=== PATIENT | male | born 1955 | race Caucasian/White ===

== ENCOUNTER 2017-08-14 21:05 | Emergency (ER) | payer OTHER, SELFPAY ==
[2017-08-14 21:06] VITALS: BP 114/75; PULSE 73; RESP 16; TEMP 531.3; TEMP 988.4; O2SAT 95; BMI 26.4
--- NOTE | 2017-08-14 22:30 | RAD_ITS ---
STUDY: X-RAY - LEFT HAND REASON FOR EXAM: Male, 61 years old. Injury TECHNIQUE: 3 view(s) of the hand. COMPARISON: None. FINDINGS: Normal radiocarpal articulation. Normal distal radioulnar joint. Normal visualized carpal bones. Normal carpal articulations Normal carpometacarpal articulation of the thumb. Normal second through fifth carpometacarpal joints. Normal metacarpi. Normal metacarpophalangeal joint of the thumb. Normal interphalangeal joint of the thumb. Normal proximal and distal phalanges of the thumb. Normal metacarpophalangeal joints of the second through fifth fingers. Normal proximal and distal interphalangeal joints of the second through fifth fingers. Fracture is noted involving the tuft of the distal phalanx of the fifth finger. Soft tissue injury of the fifth finger. RAD/Hand Min 3 Views IMPRESSION: Fracture is noted involving the tuft of the distal phalanx of the fifth finger. Electronically Signed: William Hair DO at 23:04 EDT Tel [phone], Service support ,
--- NOTE | 2017-08-15 | ED.DCSUM_ITS ---
- ER Visit Summary Date of Service: 08/14/17 Chief Complaint: Finger laceration History of Present Illness: The patient is a 61 M presents to the emergency department with crush injury to his left small finger. Patient was outside moving rocks. He states he picked one up and slipped. He ended up getting his left small finger stuck between 2 rocks. He had immediate pain and bleeding. The patient is on Xarelto. He has a history of factor II deficiency. He is otherwise healthy. Last tetanus was less than 7 years ago. He denies any other injury. He states that he did place a small pressure dressing was able to get the bleeding to stop. Physical Examination: Name is relatively unremarkable. There was no subungual hematoma. The patient's two-point discrimination is preserved. Flexor superficialis and flexor profundus are preserved. Cap refill is less than 2 seconds. Patient does have a 3 cm full-thickness L-shaped laceration with tissue avulsion. Test Results: [] Emergency Department Course and Treatment: Plain films are obtained. The patient does have a tuft injury. This does make this an open fracture. Digital block was performed. Under sterile conditions, the wound was aggressively irrigated with 300 cc of normal saline. There was scant for material that was able to be removed. It was examined. There was no active bleeding. There is no evidence of tendinous involvement. The wound was repaired with 15 simple interrupted suture. As this is an open fracture, the patient will require antibiotics. I am going to give him orthopedic follow-up. I did certified alcohol counselor him that if his symptoms worsen in any way he will need acutely reevaluated. He will be given follow-up with orthopedics to be seen within the next 48 hours. I did certified alcohol counselor him that if he cannot be seen to return to the emergency department. The patient is comfortable this plan of care. I did spend time counseling him that as this is an open fracture, there is risk of wound healing difficulties and osteomyelitis. The patient will be discharged home. Treatment Plan: [] Disposition: Discharge Impression: 1. Open tuft fracture left fifth finger with laceration repair This note was generated with [employer] dictation software. It may contain incorrect words, spelling, and punctuation that were not noted in review of the chart prior to signing ED Disposition - Plan for ED Patient: Chief Complaint: Laceration Instructions: ED Fx Finger Open Prescriptions: Cefadroxil [Duricef] 1,000 mg PO BID #40 cap Referrals: Eder Nuñez DO [STAFF PHYSICIAN] - Xavier Reyes MD [STAFF PHYSICIAN] -
[2017-08-15] MEDS: Cefadroxil 500 MG CAPSULE 1000 MG PO (00:05)
[2017-08-15] MEDS: Bupivacaine 0.25% 30 ML Vial INFILT (00:05)
[2017-08-15] MEDS: HYDROcodone Bitartrate/Apap 5/325 Tablet PO (00:17)
[2017-08-15 00:18] VITALS: BP 119/63; PULSE 60; RESP 16; O2SAT 99
== END 2017-08-15 00:19 | disposition home or self-care (01) ==
LOC: ED 22:15
PROVIDERS: Emergency Provider Emergency Medicine; Family Provider Family Medicine; PCP Family Medicine
DX: S62.637B Displaced fracture of distal phalanx of left little finger, initial encounter for open fracture (principal); W20.8XXA Other cause of strike by thrown, projected or falling object, initial encounter; Y93.H2 Activity, gardening and landscaping; Y92.9 Unspecified place or not applicable; D68.2 Hereditary deficiency of other clotting factors; Z79.01 Long term (current) use of anticoagulants; I10 Essential (primary) hypertension; K21.9 Gastro-esophageal reflux disease without esophagitis; Z79.899 Other long term (current) drug therapy
CPT/HCPCS: 12002; 73130; 99284

== ENCOUNTER → 2017-09-19 07:51 | Outpatient (CLI) | payer OTHER, SELFPAY ==
--- NOTE | 2017-09-19 10:37 | NEURO_ITS ---
NCS and/or EMG Patient Report Ordering Doctor: Salinas Ford DATE OF SERVICE: 09/19/17 This is a bilateral lower extremity nerve conduction study and a left lower extremity EMG performed on this 62-year-old male who is otherwise healthy, who has a mild nonspecific pain including numbness in the balls of his feet bilaterally as well as his toes somewhat worse on the left side present for approximately 1 year. There is a family history of idiopathic neuropathy in his mother. On physical examination the patient does have hammertoe deformities and very mild loss of proprioception in his toes. Reflexes are intact. Bilateral lower extremity sensory and motor nerve conduction studies are performed. The sural sensory and medial plantar sensory responses are intact. The bilateral common peroneal conduction velocities are slowed mildly with reduction in amplitude and prolonged latencies. The tibial motor latencies are also prolonged with mild reduction in amplitude and mild slowing of conduction velocities. The tibial and common peroneal F waves bilaterally are prolonged and the H reflex responses bilaterally are reduced. Left lower extremity needle electromyography is performed. Muscles evaluated included the abductor hallucis, extensor digitorum brevis, medial gastrocnemius , anterior tibialis, vastus lateralis, and vastus medialis. Distal muscles demonstrated large motor units with early recruitment. These abnormalities resolve more proximally in a length dependent pattern. 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
== END ==
PROVIDERS: Family Provider Family Medicine; PCP Family Medicine; Visit Provider Family Medicine
DX: G62.9 Polyneuropathy, unspecified (principal)
CPT/HCPCS: 95886; 95911

== ENCOUNTER → 2017-11-17 08:37 | Outpatient (CLI) | payer OTHER, SELFPAY ==
--- NOTE | 2017-11-17 08:42 | RAD_ITS ---
STUDY: X-RAY - PELVIS AND BILATERAL HIPS REASON FOR EXAM: Male, 62 years old. Bilateral hip pain. TECHNIQUE: Radiological exam, hip, bilateral, with pelvis when performed; 2 views COMPARISON: Comparison is made with prior study dated January 27, 2016. FINDINGS: There is a non-specific bowel gas pattern. Normal visualized soft tissue structures. Normal bilateral iliac wings, sacroiliac joints and visualized sacrum. Normal bilateral superior and inferior pubic rami. Normal pubic symphysis. Normal bilateral ischial tuberosities. Normal visualized right femoral head. There is osteoarthritic spur formation of the right acetabular rim. There is mild articular joint space narrowing of the right hip. Normal visualized left femoral head. There is osteoarthritic spur formation of the left acetabular rim. There is mild articular joint space narrowing of the left hip. RAD/Hips B/L min 2 views w/ Pelvis IMPRESSION: Degenerative acetabular spurs bilaterally. Electronically Signed: João Heard MD at 12:40 EDT Tel [phone], Service support ,
== END ==
PROVIDERS: Family Provider Family Medicine; PCP Family Medicine; Visit Provider Family Medicine
DX: M16.6 Other bilateral secondary osteoarthritis of hip (principal)
CPT/HCPCS: 73521

== ENCOUNTER 2017-12-22 07:00 | Outpatient (RCR) | payer OTHER, SELFPAY ==
--- NOTE | 2017-11-28 08:59 | HP.PTEVAL_ITS ---
Patient's Visit Information MALVIN ROBLERO is a 62 year old M referred to Physical Therapy by Salinas Ford with a diagnosis of L hip OA. Date of Evaluation: 11/28/17 Physical Therapist: Dave Oliver PT, - Visit Plan Frequency: 2x /Week Duration: 4 Weeks Plan: L hip strengthening, core stab ex's, balance and proprio ex's, nustep, and HEP - Subjective Subjective: Pt reports he has had chronic L hip pain for several years. Pt notes he could usually just walk it off. However, since september of this year, his pain has remained and progressively worsened. Pt notes he had xrays, which revealed OA. Pt reports his pain is located in the groin region, his posterior glute region, and down his leg to his knee region. Pt reports walking and sitting both increase his pain at times. Pt reports tylenol doesnt really help. Pt reports occasional sleep diff secondary to the pain. Pt reports he has to sleep on his back secondary to the pain. Pt reports he has a very diff time with getting in and out of a car. 1/10 at rest, 10/10 at worst (partial squat to get into the cabinets) - Pain L hip Pain Intensity (Out of 10): 1 Pain Intensity Range: 10 - Objective Neuro: B LE sensation is WNL to light touch. B pat tendon reflex= 2/3. MMT: L hip flex= 4-/5, IR/ER= 4/5. All other B LE MMT 5/5 throughout. LE ROM: WNL. L/ S ROM: Pt is moderately limited with ext of the L/S. All other ranges WNL. special tests: Pt has a pos quadrant test of the L hip. leg length is eqaul. Repeated movements: Pt does have a mild pain with repeated ext, but pain is centralized in the L/S. NE with RFIS. - Goals Goal 1:: Decrease L hip pain x 50% to aid with sleep Goal Time Frame: 4-6 Weeks Goal 2:: Increase L hip strength x 1 grade to aid with improving tolerance for ambulation Goal Time Frame: 4-6 Weeks Goal 3:: I with HEP Goal Time Frame: 4-6 Weeks - Rehabilitation Potential Physical Therapy Diagnosis: Pt has L hip pain, weakness, and difficulty with ambulation secondary to OA of L hip Rehabilitation Potential: Good - Anticipated Interventions Patient/Client Instruction: Educate patient on: Condition, Plan of Care For the Purpose of:: To improve self management Therapeutic Exercise to Include: Strength training, Endurance training, Flexibilty training, Gait and locomotor training, Dynamic Lumbar Stabilization For the Purpose of:: To decrease pain, To increase ROM, To improve muscle performance and motor function Cryotherapy (ice pack, ice massage): Yes Thermo therapy (hot pack): Yes Ultrasound (thermal/non thermal): Yes For the Purpose of:: To decrease pain, To improve ability to perform tasks related to life management Thank you for the opportunity to evaluate your patient. For Medicare and Medicare HMO plans, please review the plan of care and approve it. It will need to be FAXED BACK to us at [phone] for Medicare purposes. Please let me know if there are questions or concerns regarding this plan of care. Physician Signature: Date:
--- NOTE | 2018-02-09 07:44 | HP.PT.NRP ---
HP - Discharge Summary (1) - Patient Information MALVIN ROBLERO was seen in my office for initial evaluation on 11/28/17. The following Plan of Care was established for this patient: Initial Frequency: 2x /Week Initial Duration: 4 Weeks - Anticipated Interventions Patient/Client Instruction: Educate patient on: Condition, Plan of Care For the Purpose of:: To improve self management Therapeutic Exercise to Include: Strength training, Endurance training, Flexibilty training, Gait and locomotor training, Dynamic Lumbar Stabilization For the Purpose of:: To decrease pain, To increase ROM, To improve muscle performance and motor function Cryotherapy (ice pack, ice massage): Yes Thermo therapy (hot pack): Yes Ultrasound (thermal/non thermal): Yes For the Purpose of:: To decrease pain, To improve ability to perform tasks related to life management This patient was last seen in our office . Pertinent comments regarding their Physical therapy will appear below: Pt was treated for 6 PT visits through the date of 12/25/17. Pt was not progressing well at that time, and I recommended he RTD for a f/u visit. Pt has not returned through this date, and is therefore discontinued at this time. At this point I will be discontinuing this patient from physical therapy. I would be happy to see this patient again in the future if found appropriate by the physician. Thank you! Dave Oliver, PT,
== END 2017-12-22 19:00 | disposition home or self-care (01) ==
LOC: PT 07:00
PROVIDERS: Family Provider Family Medicine; PCP Family Medicine; Visit Provider Family Medicine
DX: M16.12 Unilateral primary osteoarthritis, left hip (principal)
CPT/HCPCS: 97110; 97161

== ENCOUNTER → 2017-12-27 07:15 | Outpatient (CLI) | payer OTHER, SELFPAY ==
[2017-12-27 10:30] LABS: Absolute Lymphocyte Count 1.04 X10^3/ul (0.83-4.51); Absolute Neutrophil Count 3.1 X10^3/uL (2.0-7.7); Basophil# 0.02 X10^3/uL; Basophil% 0.4 % (0-1); Eosinophil# 0.15 X10^3/uL; Eosinophils% 3.1 % (0-5); Hematocrit 46.6 % (40-54); Hemoglobin 16.2 g/dl (13.0-16.5); Lymphocyte # 1.04 X10^3/ul (4.0); Lymphocyte % 21.4 % (19-41); Mean Corp Hgb Conc 34.8 g/gl (32-36); Mean Corpuscular Hgb 30.3 pg (27.0-32.0); Mean Corpuscular Volume 87.3 fL (80-94); Mean Platelet Vol. 9.6 fl (6.2-12.0); Monocyte% 10.3 % (0-10); Neutrophil # 3.12 X10^3/uL (2.7-7.7); Neutrophil % 64.2 % (47-70); Platelet Count 186 K/mm3 (150-450); RBC Distribution Width CV 13.3 % (11.6-14.6); Red Blood Count 5.34 M/mm3 (4.6-6.2); White Blood Count 4.9 K/mm3 (4.4-11.0)
[2017-12-27 10:34] LABS: POSITIVE COUNT NO; POSITIVE DIFFERENTIAL NO; POSITIVE MORPHOLOGY NO
[2017-12-27 10:38] LABS: ALB/GLOB Ratio 1.2 RATIO (0.9-2.4); AST(SGOT) 22 U/L (15-37); Alanine Aminotransfer ALT/SGPT 28 U/L (16-61); Albumin, Serum 3.6 g/dL (3.2-5.0); Alkaline Phosphatase 89 U/L (45-117); Anion Gap 9 (5-15); BUN 20 mg/dL (7-18); BUN/Creat Ratio 16.4 RATIO (10-20); Calcium,Total 8.3 mg/dL (8.5-10.1); Chloride 108 mmol/L (98-107); Creatinine, Serum 1.22 mg/dL (0.70-1.30); EST Glomerular Filtration Rate 64 mL/min (>60); Est Glom Filt Rate - Afr Amer 77 mL/min (>60); Globulin 2.9 g/dL (2.2-4.2); Glucose 154 mg/dL (74-106); Protein, Total 6.5 g/dL (6.4-8.2); Sodium Level 144 mmol/L (136-145)
== END ==
PROVIDERS: Family Provider Family Medicine; PCP Family Medicine; Visit Provider Internal Medicine Medical Oncology
DX: D68.52 Prothrombin gene mutation (principal)
CPT/HCPCS: 36415; 80053; 85025

== ENCOUNTER 2018-04-18 08:53 | Inpatient (IN) | payer OTHER, SELFPAY ==
[2017-12-27 15:42] VITALS: BMI 26.4
--- NOTE | 2018-04-02 09:29 | PCM.HP.BLA ---
History and Physical DATE OF SURGERY: 04/18/2018 SCHEDULED PROCEDURE: Left Total Hip Arthroplasty HISTORY OF PRESENT ILLNESS: This is a 62-year-old male whose been having ongoing pain in his left hip for close to a year. Pain can reach as high as a 9/10. Patient's pain is constant, dull, aching, sharp, and stabbing. Patient has increased pain going up and down stairs, driving, walking any amount of distance. Sitting is temporarily helpful. Patient does have start up pain. He does complain of left groin pain. Pain does awaken him at night. Patient does sleep with a pillow between his legs. Patient states he has difficult time with activities of daily living including bathing and showering as well as getting dressed. Patient has tripped/stumbled secondary to his left hip. Patient also does complain of bilateral knee pain in which she has had previous arthroscopies in the past. Patient has tried rest and elevation with minimal relief. Patient did have a previous corticosteroid injection with minimal relief. Injection was done in December 2017. Patient has tried physical therapy and home exercises with no relief in symptoms. Patient has tried oral medications consisting of Tylenol arthritis. He denies previous surgery on the left hip. Patient has a medical history pertinent for hypertension as well as previous blood clots and pulmonary emboli. Patient has had 2 episodes of pulmonary emboli in bilateral lungs. First was in 2014 followed by 2016. At that time patient was seen by Dr. Vann, bottom turning lathe turner. 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 Patient has been on Cymbalta 20 mg daily since. He has not had any previous episodes. We have obtain surgical clearance from patient's primary care physician and bottom turning lathe turner. Fish Machine Feeder recommends stopping Xarelto 24 hours before surgery and resuming after. Patient currently denies any chest pain, shortness of breath, fevers chills, or recent infections. After failing conservative measures and discussing all treatment options with Dr. Xavier Reyes, the patient would like to proceed with a left total hip arthroplasty. REVIEW OF SYSTEMS: ROS: Const: Denies change in appetite, fever and weight change. CV: Denies chest pain, heart murmur and irregular heartbeat. Resp: Denies cough, pneumonia, shortness of breath, tuberculosis and wheezing. GI: Denies constipation, diarrhea, heartburn, nausea, rectal itching, bloody stools and vomiting. : Denies incontinence. Musculo: Reports gait disturbance and trouble walking, but denies leg swelling, pain and weakness. Skin: Reports Raynaud's, but denies history of shingles and tattoo. Neuro: Denies ambulatory dysfunction, dizziness, numbness/tingling and tremor. Psych: Denies anxiety, insomnia and stress. Juan/Lymph: Reports bleeding/bruising tendency, but denies anemia and past transfusion. Reviewed and updated. PAST MEDICAL HISTORY: Advance Care Plan: No Advance Directives Effective Date: 02/23/2018 PMH: Medical Problems: Arthritis, High Blood Pressure, History Of Phlebitis, Pulmonary Embolism Accidents: Fracture - (2017) LT SMALL FINGER Surgical Hx: Tonsillectomy - (1959) Knee Arthroscopy LT - (2004) [facility] Knee Arthroscopy RT - (2000) [facility] Shoulder Arthroscopy RT - (2016) [facility] Anesthesia Complications: Hard Time Waking Up Assistive Devices: Glasses Reviewed and updated. 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 Personal Habits: Cigarette Use: Never Smoked Cigarettes.Smokeless Tobacco: Never Used Smokeless Tobacco.Alcohol: Denies use.Drug Use: Denies Use.Enjoy Exercising: Daily. Reviewed, no changes. VITALS: Ht: 71 Wt: 194lb Wt k.998 BMI: 27.1 BP: 130/84 Pulse: 92 Resp: 18 T: 96.4 T: 35.8C ALLERGIES: Toprol Norflex Kenalog Meloxicam Flexeril Penicillin MEDICATIONS: Clindamycin 600 mg. take orally one hour prior to procedure, Xarelto 20 mg 1 tab PO daily, Losartan Potassium 50 mg 1 tab PO every other day, Omeprazole 40 mg 1 cap PO daily PRE-OP EXAM: General appearance:NORMAL Other: Eyes: Conjunctivae and lids: NORMAL Pupils: ERR Ears, Nose, Mouth, and Throat: NORMAL Other: Inspection of lips, teeth and gums: NORMAL Other: Neck: Examination of neck: no masses noted. Respiratory: Assessment of respiratory effort: NORMAL Other: Auscultation of lungs: clear to auscultation no wheezes, rhonchi or rales. Cardiovascular: Auscultation of heart: regular rate and rhythm, no murmurs, gallops or rubs. Exam of carotid arteries: NORMAL Other: Gastrointestinal: Exam of abdomen: soft, nontender, nondistended bowel sounds present. PHYSICAL EXAMINATION: Patient does walk with an antalgic gait. Left hip is cool to touch without erythema. Patient has left hip flexion 95, internal rotation 10, external rotation 35. Patient does have crepitus in the left knee. He has pain with flexion,adduction, internal rotation which does reproduce his left hip pain. Sensation intact to light touch. Neurovascularly intact. IMAGING STUDIES: 1. X-rays from 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 On the left there is more significant joint space narrowing and acetabular osteophyte formation. This is consistent with moderate severe left hip osteoarthritis. 2. X-rays at [facility] were obtained on April 02, 2018 including AP pelvis which does show moderate to severe left hip osteoarthritis with joint space narrowing and osteophyte formation. There is bilateral cam lesions. IMPRESSION: 1. Left hip moderate to severe osteoarthritis 2. Hypertension 3. History of DVT and pulmonary emboli 4. Factor II deficiency: Xarelto PLAN: Dr. Xavier Reyes did discuss and review with the patient all treatment options including surgical versus nonsurgical options. Patient does wish to proceed with the above-stated procedure. Potential risks, benefits, and complications of the procedure were discussed in detail including but not limited to , infection, nerve and blood vessel damage, persistent pain, numbness, tingling, paresthesias, blood clot, pulmonary embolism, and requirement for possible further surgery. The patient expressed full understanding and has no further questions for the doctor. Patient does agree to proceed with the above-stated procedure and has signed the surgery consent form. Fish Machine Feeder recommends stopping his Xarelto 24 hours prior to surgery and resuming after. This dictation was created using voice recognition software. Phonetic and/or grammatical errors may exist.. ___ I have re-examined the patient. There are no clinical changes since date of exam. ___ See progress notes for changes. ___ Dictated on admission Date: Time: Signature:
[2018-04-02 10:02] VITALS: BP 132/93; PULSE 58; RESP 16; TEMP 36.3; O2SAT 98; BMI 27.1
--- NOTE | 2018-04-02 10:10 | SDCEKG_ITS ---
Test Reason : Blood Pressure : / mmHG Vent. Rate : 056 BPM Atrial Rate : 056 BPM P-R Int : 170 ms QRS Dur : 102 ms QT Int : 412 ms P-R-T Axes : 030 007 011 degrees QTc Int : 397 ms Sinus bradycardia Otherwise normal ECG Confirmed by MIKE CHI, MICHELLE ([id number]), film editor supervisor ANALI BOBO ([id number] on 04/06/2018 2:39:27 PM Referred By: Xavier Reyes Confirmed By:MICHELLE MCKEON MD
[2018-04-02 10:46] LABS: Absolute Lymphocyte Count 0.99 X10^3/ul (0.83-4.51); Absolute Neutrophil Count 3.9 X10^3/uL (2.0-7.7); Basophil# 0.02 X10^3/uL; Basophil% 0.4 % (0-1); Eosinophils% 1.8 % (0-5); Lymphocyte # 0.99 X10^3/ul (4.0); Lymphocyte % 17.4 % (19-41); Mean Corp Hgb Conc 34.7 g/gl (32-36); Mean Corpuscular Hgb 30.5 pg (27.0-32.0); Mean Platelet Vol. 9.1 fl (6.2-12.0); Monocyte# 0.62 X10^3/uL; Monocyte% 10.9 % (0-10); Neutrophil # 3.92 X10^3/uL (2.7-7.7); Platelet Count 193 K/mm3 (150-450); RBC Distribution Width CV 13.2 % (11.6-14.6); RBC Distribution Width SD 42.2 fl (35.1-43.9); Red Blood Count 5.57 M/mm3 (4.6-6.2); White Blood Count 5.7 K/mm3 (4.4-11.0)
[2018-04-02 10:49] LABS: POSITIVE COUNT NO; POSITIVE DIFFERENTIAL NO; POSITIVE MORPHOLOGY NO
[2018-04-02 11:10] LABS: Anion Gap 10 (5-15); BUN 18 mg/dL (7-18); BUN/Creat Ratio 17.8 RATIO (10-20); Calcium,Total 8.7 mg/dL (8.5-10.1); Chloride 105 mmol/L (98-107); Creatinine, Serum 1.01 mg/dL (0.70-1.30); EST Glomerular Filtration Rate 79 mL/min (>60); Est Glom Filt Rate - Afr Amer 96 mL/min (>60); Estimated Creatinine Clearance 79.73 ml/min; Glucose 84 mg/dL (74-106); Potassium 4.6 mmol/L (3.5-5.1); Sodium Level 142 mmol/L (136-145)
--- NOTE | 2018-04-10 13:32 | CASEMGMT ---
Call placed to patient to discuss discharge needs after upcoming surgery. Patient plans to return home and reports he will have assistance at home. Outpatient physical therapy is set up at [facility] and has assistance with transportation. Has a walker and toilet riser, thinks he has a shower seat, will check. Patient has a bedroom and bathroom on the 1st level of the home. There are 2 steps to get into the home from outside. Informed patient that RN-CM will likely follow up after surgery. Carmen Olsen LPN Clinical Support
[2018-04-18] VITALS (19 sets, daily range): BP systolic 58–128; BP diastolic 35–88; PULSE 49–112; RESP 16–18; TEMP 36.3–36.8; O2SAT 95–100; BMI 27.1; BMI 27.2
[2018-04-18] MEDS: oxyCODONE HCl Cr 10 MG Tablet PO (09:46)
[2018-04-18] MEDS: Acetaminophen 500 MG Tablet 1000 MG PO ×3 (09:47→21:59)
[2018-04-18] MEDS: Lactated Ringers 1,000 ML 999 ML IV ×3 (10:00→17:18)
[2018-04-18] MEDS: Scopolamine 1mg/72hr Patch 1 PATCH TD (10:10)
--- NOTE | 2018-04-18 10:48 | RAD_ITS ---
STUDY: X-RAY - LEFT HIP REASON FOR EXAM: Male, 62 years old. Left anterior hip replacement. TECHNIQUE: 2 views of the hip. COMPARISON: Comparison is made with prior examination dated November 17, 2017. FINDINGS: Intraoperative imaging provided for left total hip replacement. RAD/Hip 1 view with Pelvis IMPRESSION: Intraoperative imaging provided for left total hip replacement. There is good alignment. Electronically Signed: João Heard MD at 14:45 EST Tel [phone], Service support ,
--- NOTE | 2018-04-18 12:30 | OP.PCM_ITS ---
Report of Operation Date of Procedure: 04/18/18 Pre-Operative Diagnosis: Left hip primary osteoarthritis Post-Operative Diagnosis: Left hip primary osteoarthritis Surgery/Procedure Performed:: Left direct anterior total hip replacement Description of Surgical Findings:: Stable hip with equal leg lengths computer art instructor: Eder Yang computer art instructor: Mary Anne Edge Type of Anesthesia:: Spinal Anesthesiologist: Kevin Liu Special Medications: 600 mg clindamycin, 1 g TXA at incision, 1 g TXA closure, 10 mg Decadron, joint cocktail (5 mg Duramorph, 30 mL of 0.5% Ropivicaine, 1000 units of epinephrine) Specimen's removed: Bony cuts Estimated Blood Loss (mL): 750 mL Fluids Replaced: 1800 mL crystalloid Description of Procedure: Components used: 1. Accolade 2 Sury femoral stem size 6 127? 2. [place] trident acetabular shell size 58 mm 3. [place] X3 polyethylene F 4. Sury Biolox delta 36mm, -5mm femoral head Brief history operative indications: 62 yo m who failed conservative measures for their hip osteoarthritis. X-rays were consistent with osteoarthritis including joint space narrowing, osteophyte formation and subchondral cysts. Total hip replacement was discussed with the patient with risks and benefits including but not limited to blood loss, DVTs, PEs, neurovascular damage, dislocation, general risks of anesthesia including loss of life. Patient demonstrated an understanding medical clearance is obtained the patient was consented for surgery. Procedure: On the date of procedure the patient's L hip was marked in the preoperative area. Patient was then taken back to the operating room where anesthesia assumed control of the C-spine and airway and administered anesthetic. Patient was transferred to the operating table and placed in the supine position. The hips were placed at the break of the bed and a sacral bump was placed. The L lower extremity was then prepped out in a sterile fashion using chlorhexidine while the surgeon scrubbed. The PA was vital in the positioning of the patient. Upon reentering the room the L lower extremity was draped in the standard orthopedic fashion and the incision was marked. A timeout was called and everyone agreed upon the side, the site, the procedure be performed, antibody given, and patient's identity. At this time incision was made through skin, subcutaneous tissue, and fat down to fascia. The fascia was then incised and t he TFL was retracted laterally. A retractor was placed on the lateral border of the femoral neck. Attention was directed to the inferior portion of the approach and all crossing vessels were identified and appropriately coagulated. A retractor was then placed on the medial portion of the femoral neck. The anterior capsule was then cleared of all soft tissue and then H shaped capsulotomy was made. The retractors were then placed inside the capsule. The femoral neck was identified and a cleanup cut was made. At this time a power corkscrew was used to remove the femoral head. Attention was then turned toward the acetabulum where the soft tissues were appropriately retracted and the acetabulum was sequentially reamed to 58 mm. A 58 mm cup was then selected and impacted into place. Acetabular liner was impacted into place and locking mechanism was verified. The position of the acetabular cup was then verified under live fluoroscopy. Attention was then turned to the femur. Soft tissue releases on the medial and lateral femoral neck were appropriately done, the leg was externally rotated and lateralized. A Vargas retractor was placed medially and proximally to the greater trochanter this allowed appropriate visualization and exposure of the femoral canal. Rongeour was then used to remove excess lateral bone. A canal finder and entry broach were used to open the proximal canal. Once we verified we were down the femoral canal we subsequently broached up to a size 6 femur. The appropriate neck was placed in the previously selected head was trialed with a -5 mm neck. Traction was pulled and the hip was reduced with internal rotation. Once it was appropriately reduced and stability was checked. There was minimal shuck, equal leg lengths and appropriate stability with hyperextension and external rotation as well as with 90? flexion and internal rotation. Fluoroscopy was then also used to verify the position of the components and leg lengths using the contralateral side for comparison. The trial components were then dislocated the proximal femur was again exposed and the components were removed from the wound. The final components were verified and opened. The wound was copiously irrigated out with normal saline. The acetabulum was checked for any residual debris. The final components were placed and impacted. Traction and internal rotation were again used to reduce the hip. After adequate reduction the hip remained stable with appropriate leg lengths. The final components were once again checked with live fluoroscopy and were found to be satisfactory. The wound was then lavaged for 1 minute with 2 g of TXA. Copiously irrigated with normal saline once more, and hemostasis was obtained using aqua Eliseo. We observe the wound for a period of time did not note any more bleeding. Closure was then done using #1 Vicryl runner to close the fascia. A 2-0 vicryl interuppted sutures were used to close the subcutaneous skin. A 3-0 Monocryl and Steri-Strips were used for final skin closure. A Silverlon dressing was placed. Patient was awakened by anesthesia and transferred to the [facility]. Patient was then transferred to the PACU for recovery. Postoperative plan: Patient will get 24 hours postop antibiotics. Patient will get in-house physical therapy and will be weight-bear as tolerated. Patient will follow up in office in 2 weeks for a wound check and x-rays. He will be restarted on Xarelto 20 mg starting tomorrow. During the course of the procedure the assisting surgeon played a vital role. His intimate knowledge of my steps in the procedure aided in safe and expedient completion of the procedure. The assisting surgeon played a vital rolls in positioning particularly in obtaining the appropriate positioning of the sacral bump. The assisting surgeon was also vital in the retraction of soft tissues during the exposure and especially the femoral work as this is a vital part of the procedure to prevent complications and fractures. The assisting surgeon was also vital and protecting soft tissues during times of bony cuts and reaming. The assisting surgeon was also important during reduction and dislocation of the joint and trials intraoperatively. Grafts/Implants Used: Sury Accolade 2, Trident 2 - Complications None - Admit VTE Documentation VTE Present on Admission: No VTE Mechan Device Prophylaxis: SCD's, Thigh High ALEXY Hose VTE Pharm Prophylaxis ordered?: Yes
--- NOTE | 2018-04-18 12:50 | RAD_ITS ---
STUDY: X-RAY - LEFT HIP REASON FOR EXAM: Male, 62 years old. Left total hip replacement. TECHNIQUE: 2 views of the hip. COMPARISON: Comparison is made with prior study dated November 17, 2017. FINDINGS: The patient is status post left hip replacement. There is good alignment. Postoperative soft tissue changes. RAD/Hip Min 2 Views (Portable) IMPRESSION: Status post left total hip replacement. There is good alignment. Postoperative soft tissue changes. Electronically Signed: João Heard MD at 13:16 EST Tel [phone], Service support ,
[2018-04-18] MEDS: Lactated Ringers 1,000 ML 125 ML IV (13:11)
[2018-04-18] MEDS: Ferrous Sulfate 325 MG Tablet PO (15:54)
[2018-04-18] MEDS: oxyCODONE 5 MG Tablet PO (15:55)
[2018-04-18] MEDS: Folic Acid 1 MG Tablet PO (15:55)
--- NOTE | 2018-04-18 16:00 | PCA ---
therapy working with pt
[2018-04-18] MEDS: Morphine 4 MG/ML Syringe IV (16:27)
[2018-04-18] MEDS: Ondansetron 4 MG/2 ML Vial IV (16:28)
[2018-04-18 17:40] LABS: Hematocrit 38.8 % (40-54); Hemoglobin 13.2 g/dl (13.0-16.5)
--- NOTE | 2018-04-18 18:03 | NURSING ---
pt assisted back to bed lift carry with blanket x 5 staff from chair-good body alignment maintained-pt now rates left thigh pain from 8 to 4-comes in waves and it is difficult for him to describe pain-there is an area below left anterior hip dressing and lateral upper thigh there is no discoloration but there is an area that is firmer than surrounding tissue but dentable with finger and is very sensitive to touch-10# sand bag placed over this area as directed per dr somers cap refill left foot wnl, pt able to move toes and ankle and this does not increase his discomfort-pt denies any SOB
--- NOTE | 2018-04-18 19:52 | PCM.PN.BLA ---
Progress Note Received 2 phone calls on patient's left thigh pain with some associated swelling. There were concerns for a possible developing hematoma. At this time nursing reports that the swelling is been stable. There is no tenseness of the thigh. Patient states that when the spinal started wearing off he started to have some pain then he was getting up with therapy and noted increased pain when up with therapy. He was able to bear weight. Hemoglobin is 13.2. He did have some decreased blood pressure which has been stabilized with some fluid resuscitation. Thigh was examined this evening does have some swelling but does not appear to be excessive swelling. Thigh is supple. No gross deformity is appreciated. Will reexamine in the morning. [facility] Office:
--- NOTE | 2018-04-18 19:58 | PN_ITS ---
Progress Note Received 2 phone calls on patient's left thigh pain with some associated swelling. There were concerns for a possible developing hematoma. At this time nursing reports that the swelling is been stable. There is no tenseness of the thigh. Patient states that when the spinal started wearing off he started to have some pain then he was getting up with therapy and noted increased pain when up with therapy. He was able to bear weight. Hemoglobin is 13.2. He did have some decreased blood pressure which has been stabilized with some fluid r esuscitation. Thigh was examined this evening does have some swelling but does not appear to be excessive swelling. Thigh is supple. No gross deformity is appreciated. Will reexamine in the morning. [facility] Office:
[2018-04-18] MEDS: Senna/Docusate Sodium 1 Tablet 2 TABLET PO (22:00)
[2018-04-19] VITALS (9 sets, daily range): BP systolic 99–105; BP diastolic 58–70; PULSE 57–79; RESP 16–18; TEMP 37.3–37.9; O2SAT 95–100
[2018-04-19] MEDS: Lactated Ringers 1,000 ML 125 ML IV (02:24)
[2018-04-19] MEDS: oxyCODONE 5 MG Tablet PO ×4 (02:34→17:40)
[2018-04-19 06:33] LABS: Hematocrit 35.3 % (40-54); Hemoglobin 12.2 g/dl (13.0-16.5); Mean Corp Hgb Conc 34.6 g/gl (32-36); Mean Corpuscular Hgb 30.7 pg (27.0-32.0); Mean Corpuscular Volume 88.7 fL (80-94); Mean Platelet Vol. 8.8 fl (6.2-12.0); Platelet Count 164 K/mm3 (150-450); RBC Distribution Width CV 12.9 % (11.6-14.6); RBC Distribution Width SD 40.8 fl (35.1-43.9); Red Blood Count 3.98 M/mm3 (4.6-6.2); White Blood Count 5.7 K/mm3 (4.4-11.0)
[2018-04-19] MEDS: Acetaminophen 500 MG Tablet 1000 MG PO ×3 (06:34→23:47)
[2018-04-19 06:37] LABS: Anion Gap 6 (5-15); BUN 11 mg/dL (7-18); BUN/Creat Ratio 11.7 RATIO (10-20); Calcium,Total 7.4 mg/dL (8.5-10.1); Chloride 107 mmol/L (98-107); Creatinine, Serum 0.94 mg/dL (0.70-1.30); EST Glomerular Filtration Rate 86 mL/min (>60); Est Glom Filt Rate - Afr Amer 104 mL/min (>60); Estimated Creatinine Clearance 85.67 ml/min; Glucose 95 mg/dL (74-106); Potassium 3.9 mmol/L (3.5-5.1); Scan Indicated on CBC? Y/N NO; Sodium Level 140 mmol/L (136-145)
[2018-04-19] MEDS: Folic Acid 1 MG Tablet PO ×2 (08:37→17:35)
--- NOTE | 2018-04-19 09:32 | PCM.PN.ORT ---
Subjective: The patient was sitting in bedside chair upon examination. Patient denies any chest pain, shortness of breath, dizziness, lightheadedness, nausea or vomiting, or calf pain. Patient continues to have increased thigh pain on the left. This is primarily when he is up weightbearing. Patient had increased swelling last night with concern for hematoma. Patient has been using sandbag and ice on the left hip. Patient states the swelling has improved but continues to complain of pain in the thigh. Patient is on Xarelto 20 mg due to history of previous DVT and pulmonary emboli. Patient is also factor to deficient. He has been on Xarelto 20 mg from outside physician. He has not received asked operative dose of Xarelto at this time. Plan is for resuming Xarelto this evening. Patient's blood pressure has been running low. Will hold hypertensive medications and continue with IV fluids. Objective: Patient does have low blood pressure, afebrile. Patient denies any chest pain or shortness of breath Patient is able to plantarflex and dorsiflex actively. Sensation is intact to light touch to saphenous, sural, superficial and deep peroneal, and tibial distribution. Dressing is clean dry and intact. Patient's left thigh is soft/supple. There is swelling to the left thigh Negative Homans bilaterally, negative signs and symptoms of DVT. - Physical Exam General: Alert, Oriented x3, Cooperative, No apparent distress Vital Signs Temp Pulse Resp BP Pulse Ox 99.5 F H 67 16 99/58 L 98 04/19/18 09:00 04/19/18 09:00 04/19/18 09:00 04/19/18 09:00 04/19/18 09:00 Oxygen Flow Rate (L/min) 3 Oxygen Delivery Method Room Air Weight: 88.3 kg Body Mass Index (BMI) 27.1 Intake and Output for Last 24 Hours 04/17/18 04/18/18 04/19/18 23:59 23:59 23:59 Intake Total 4137 / 4137 2337 / 2337 Output Total 500 / 500 300 / 300 Balance 3637 / 3637 2036 Laboratory Tests Past 24 Hrs 04/18/18 04/19/18 04/19/18 17:15 06:14 06:14 WBC 5.7 RBC 3.98 L Hgb 13.2 12.2 L Hct 38.8 L 35.3 L MCV 88.7 MCH 30.7 MCHC 34.6 RDW 12.9 RDW Differential 40.8 Plt Count 164 MPV 8.8 Sodium 140 Potassium 3.9 Chloride 107 Carbon Dioxide 27.0 Anion Gap 6 BUN 11 Creatinine 0.94 Estim Creat Clear Calc 85.67 Est GFR (MDRD) Af Amer 104 Est GFR (MDRD) Non-Af 86 BUN/Creatinine Ratio 11.7 Glucose 95 Calcium 7.4 L Medical Necessity - Tobacco Use Smoking Status: Never smoker Assessment/Plan All Active Problems (Last Reviewed 08/28/17 @ 15:42 by Bahrathi Flaherty) Left hip pain (Acute) History of thromboembolism (Resolved) Iron deficiency anemia (Acute) Bilateral pulmonary embolism (Acute) 1. S/P left direct anterior total hip arthroplasty POD #1 2. Continue Pain Medications: Tylenol and OxyIR 3. DVT Prophylaxis: Patient will be placed back on his Xarelto 20 mg, currently on hold until this evening. 4. PT/OT: Will hold physical therapy this morning, we will be getting x-ray of the left hip. If x-ray is normal will begin physical therapy this afternoon. 5. H & H: 12.2/35.3, asymptomatic 6. Encouraged Incentive Spirometry 7. Disposition: Due to patient's pain and swelling patient will stay another night. X-ray of the left hip will be obtained. Continue with fluids and hold blood pressure medication. If we do not see any improvement with blood pressure possible consultation to hospitalist.
[2018-04-19] MEDS: Senna/Docusate Sodium 1 Tablet 2 TABLET PO ×2 (09:57→23:47)
[2018-04-19] MEDS: Pantoprazole Sodium 40 MG Tablet PO (09:57)
[2018-04-19] MEDS: Famotidine 20 MG Tablet PO (09:58)
[2018-04-19] MEDS: 0.9% NaCl Peripheral Flush Adult/Peds IV (10:53)
--- NOTE | 2018-04-19 11:00 | RAD_ITS ---
STUDY: X-RAY - LEFT HIP REASON FOR EXAM: Male, 62 years old. Postoperative pain. TECHNIQUE: 2 views of the hip. COMPARISON: Comparison is made with prior examination dated April 18, 2018. FINDINGS: The patient is status post left total hip replacement. There is good alignment. Postoperative soft tissue changes and swelling. RAD/HIP, UNI W/ Pelvis 2-3 Views IMPRESSION: The patient is status post left total hip replacement. There is good alignment. Postoperative soft tissue changes and swelling. Electronically Signed: João Heard MD at 12:46 EST Tel [phone], Service support ,
[2018-04-19] MEDS: Ferrous Sulfate 325 MG Tablet PO ×2 (12:01→17:34)
--- NOTE | 2018-04-19 12:09 | PCM.PN.BLA ---
Progress Note X-rays reviewed. No acute changes noted on initial review of x-rays. No fractures. Hip is appropriately reduced. Also hemoglobin has been stable. Patient's blood pressure is low but been stable overnight at about 100 systolic. At this point I discussed results with the patient. He does have some swelling of his thigh which is not outside of normal limitations at this point. Most of his groin pain is now relieved from yesterday mostly he is complaining of thigh pain. Going to get the patient up with physical therapy.
--- NOTE | 2018-04-19 12:20 | CASEMGMT ---
TUYET ARAGON Face to Face with patient for initial transition planning/care coordination assessment. RN MARGO introduced self and role at [facility]. Patient lying in bed, alert and oriented. Patient willing to participate in assessment and is able to answer all questions appropriately. Care providers, pharmacy, and demographics verified. Patient wishes to discharge home and is setup with [facility] for outpatient therapy. Patient states he has no further needs or concerns at this time. CM to follow for discharge planning needs that may arise. PCP: Ramon Specialists: Pra, corporate safety coordinator Preferred Pharmacy: [facility] Insurance: [employer] Prescription Benefit: [employer] Living Will/HPOA: None LNOK: Living Arrangements: Patient lives with in 1 story house. Transportation: DME/HHC: Patient has raised toilet seat, cane grab bars, walker at home. Outpatient therapy scheduled at [facility] Disposition Plan: Patient to discharge home with outpatient therapy, family support, and follow-up plans in place. Yvette MITTAL, RN, CM
[2018-04-19] MEDS: Rivaroxaban 20 MG Tablet PO (17:35)
[2018-04-20 02:13] VITALS: BP 104/71; PULSE 76; RESP 18; TEMP 37.7; O2SAT 95
[2018-04-20 05:51] LABS: Hematocrit 36.1 % (40-54); Hemoglobin 12.4 g/dl (13.0-16.5); Mean Corp Hgb Conc 34.3 g/gl (32-36); Mean Corpuscular Hgb 30.1 pg (27.0-32.0); Mean Corpuscular Volume 87.6 fL (80-94); Mean Platelet Vol. 8.9 fl (6.2-12.0); Platelet Count 157 K/mm3 (150-450); RBC Distribution Width CV 12.9 % (11.6-14.6); RBC Distribution Width SD 41.5 fl (35.1-43.9); Red Blood Count 4.12 M/mm3 (4.6-6.2); White Blood Count 7.1 K/mm3 (4.4-11.0)
[2018-04-20] MEDS: oxyCODONE 5 MG Tablet PO ×2 (05:56→12:29)
[2018-04-20 05:58] LABS: Scan Indicated on CBC? Y/N NO
[2018-04-20] MEDS: Acetaminophen 500 MG Tablet 1000 MG PO ×2 (06:58→15:05)
--- NOTE | 2018-04-20 07:14 | PN.ORTHO_ITS ---
Subjective: The patient was sitting in bed upon examination. Patient denies any chest pain, shortness of breath, lightheadedness, nausea or vomiting, or calf pain. Pain is controlled on medications. No adverse overnight events. Patient states the pain is doing better today. While lying in bed and resting pain is a 2/10. Pain is primarily increased when he is up moving. X-rays were obtained yesterday which did not show any fractures or subsidence. Patient has had low- grade fever overnight but lab work is without any elevated white blood cell count and there is no increased redness around the incision. Patient continues to state he has no chest pain or shortness of breath. Patient was up twice overnight and is only had one round of physical therapy yesterday. Objective: Vital signs stable and afebrile. Patient is able to plantarflex and dorsiflex actively. Sensation is intact to light touch to saphenous, sural, superficial and deep peroneal, and tibial distribution. Dressing is clean dry and intact. Minimal reactive erythema which has been stable. Swelling to the thigh has been stable, thigh is soft and supple. There is decreased tenderness to palpation diffusely over the left thigh. Negative Homans bilaterally, negative signs and symptoms of DVT. - Physical Exam General: Alert, Oriented x3, Cooperative, No apparent distress Vital Signs Temp Pulse Resp BP Pulse Ox 99.9 F H 76 18 104/71 95 04/20/18 02:13 04/20/18 02:13 04/20/18 02:13 04/20/18 02:13 04/20/18 02:13 Oxygen Flow Rate (L/min) 3 Oxygen Delivery Method Room Air Weight: 88.3 kg Body Mass Index (BMI) 27.1 Intake and Output for Last 24 Hours 04/18/18 04/19/18 04/20/18 23:59 23:59 23:59 Intake Total 4137 / 4137 5587 / 5587 500 / 500 Output Total 500 / 500 0 / 2049 1475 / 1475 Balance 3637 / 3637 3537 / 3537 -975 / -975 Laboratory Tests Past 24 Hrs 04/20/18 05:14 WBC 7.1 RBC 4.12 L Hgb 12.4 L Hct 36.1 L MCV 87.6 MCH 30.1 MCHC 34.3 RDW 12.9 RDW Differential 41.5 Plt Count 157 MPV 8.9 Medical Necessity - Tobacco Use Smoking Status: Never smoker Assessment/Plan All Active Problems (Last Reviewed 08/28/17 @ 15:42 by Bharathi Flaherty) Left hip pain (Acute) History of thromboembolism (Resolved) Iron deficiency anemia (Acute) Bilateral pulmonary embolism (Acute) 1. S/P left direct anterior total hip arthroplasty POD #2 2. Continue Pain Medications: Tylenol and OxyIR 3. DVT Prophylaxis: Continue with his normal dose of 20 mg of Xarelto 4. PT/OT: Weightbearing as tolerated. Continue using ice over left thigh. 5. H & H: 12.4/36.1, asymptomatic 6. Encouraged Incentive Spirometry 7. Low-grade fever overnight: Patient currently with normal white count and there is no suspected infection. This was discussed with Dr. Kyler Reyes and feel this can be reactive from the swelling in the thigh. 7. Disposition: Plan will be for possible discharge this evening if patient tolerates physical therapy and pain is controlled on medications. Prescriptions will be attached to chart. Patient will follow-up per postop instructions.
--- NOTE | 2018-04-20 07:20 | DCINST_ITS ---
Discharge Diet: No Restrictions Discharge Activity: May Not Drive - while taking narcotic pain medications. May shower in (days): 1 - Turned dressing away from water Ice area for (Minutes): 20 - Every 1-2 hours while awake Weight Bearing Status: Weight bearing as tolerated Elevate: Operative Extremity Additional Activity Instructions:: Wear elastic stockings for 2 weeks. DO NOT use alcohol with narcotic pain medication. DO NOT make important decisions while taking narcotic medication. If you have problems with taking your medication (rash, itching, nausea, etc.) call the office at once. Call your doctor if your incision/area has: Increased Pain/ Swelling, Increased Redness, Foul Smelling Discharge Call your doctor if you observe: Fever of 101 or Higher Remove Dressing in (days):: 3 - Okay to remove dressing on April 23, 2018 Additional Instructions: Follow [facility] postop instructions Continue to ice the left thigh every 1-2 hours while awake for 20 minutes Continue with incentive spirometry every hour Allergies/Adverse Reactions: Allergies cyclobenzaprine HCl [From Flexeril] Allergy (Severe, Verified 12/27/17 15:42) Swelling ketorolac tromethamine [From Toradol] Allergy (Severe, Verified 12/27/17 15:42) Swelling meloxicam Allergy (Severe, Verified 12/27/17 15:42) Swelling orphenadrine citrate [From Norflex] Allergy (Severe, Verified 12/27/17 15:42) Swelling Penicillins Allergy (Severe, Verified 12/27/17 15:42) Rash triamcinolone acetonide [From Kenalog] Allergy (Severe, Verified 12/27/17 15:42) Swelling Medications to take at Discharge Mometasone Furoate [Nasonex] 1 spray NASAL DAILY PRN 10/04/13 Omeprazole 1 tab PO DAILY 10/04/13 Losartan Potassium [Cozaar] 50 mg PO QODAY 04/16/15 Rivaroxaban [Xarelto] 20 mg PO DAILY 04/02/18 Acetaminophen [Tylenol] 1,000 mg PO Q8 #100 tab 04/20/18 Oxycodone [Oxyir] 5 - 10 mg PO Q4H PRN PRN 7 Days #80 tab 04/20/18 Senna/Docusate Sodium [Senokot-S] 2 tab PO BID #20 tab 04/20/18 The following prescriptions were given: Oxycodone [Oxyir] 5 - 10 mg PO Q4H PRN PRN 7 Days #80 tab PRN Reason: Mod-Severe Pain (-02/28) Acetaminophen [Tylenol] 1,000 mg PO Q8 #100 tab Senna/Docusate Sodium [Senokot-S] 2 tab PO BID #20 tab Primary Care Physician: Salinas Ford MD [Primary Care Provider] - Test Results: Test results from this visit will be discussed in further detail at your follow- up appointment, if applicable. Please Follow Up With: [facility] When: 04/23/18 @ 7:30 am Please Follow Up With: Rasheed Guillory PA-C When: 05/02/18 @ 8:15 am
[2018-04-20 09:13] VITALS: BP 104/61; PULSE 84; RESP 18; TEMP 37.4; O2SAT 97
[2018-04-20] MEDS: Pantoprazole Sodium 40 MG Tablet PO (10:00)
[2018-04-20] MEDS: Famotidine 20 MG Tablet PO (10:00)
[2018-04-20] MEDS: Senna/Docusate Sodium 1 Tablet 2 TABLET PO (10:00)
[2018-04-20] MEDS: Folic Acid 1 MG Tablet PO (10:01)
[2018-04-20 10:43] VITALS: PULSE 58
[2018-04-20] MEDS: Ferrous Sulfate 325 MG Tablet PO (12:30)
[2018-04-20 15:06] VITALS: BP 110/72; PULSE 87; RESP 18; TEMP 37.9; O2SAT 98
[2018-04-20 16:20] VITALS: BP 110/72; PULSE 67; RESP 18; TEMP 37.9; O2SAT 98
--- OUTSIDE RECORDS SUMMARY | 2018-06-13 14:41 | XMS RPT_ITS ---
:1955 Author Organization OHIP Support Name Relationship Address Phone CORBIN ROBLEROERINE Unavailable [address] + [place] [address] O[place]DC Unavailable [address] + [place] [address] YOAN ROBLERO Unavailable [address] + [place] [address] [place] Unavailable [address] + [place] [address] YOAN ROBLERO Unavailable [address] + [place] [address] [facility] Unavailable [address] + [place] [address] YOAN ROBLERO Unavailable [address] + [place] [address] MALVIN ROBLERO Unavailable Unavailable Unavailable CLOVER FERRERA Unavailable Unavailable Unavailable [place], [place] YOAN ROBLERO Unavailable [address] + [place] [address] MALVIN ROBLERO Unavailable Unavailable Unavailable CLOVER FERRERA Unavailable Unavailable Unavailable [place] YOAN ROBLERO Unavailable [address] + [place] [address] MALVIN ROBLERO Unavailable Unavailable Unavailable CLOVER FERRERA Unavailable Unavailable Unavailable [place] YOAN ROBLERO Unavailable [address] + [place] [address] MALVIN ROBLERO Unavailable Unavailable Unavailable CLOVER FERRERA Unavailable Unavailable Unavailable [place] YOAN ROBLERO Unavailable [address] + [place] [address] [facility] Unavailable [address] + [place] [address] OSBALDO, YOAN Unavailable [address] + [place] [address] [facility] Unavailable [address] + [place] [address] OSBALDO, YOAN Unavailable [address] + [place] [address] [facility] Unavailable [address] + [place] [address] OSBALDO, YOAN Unavailable [address] + [place] [address] [facility] Unavailable [address] + [place] [address] OSBALDO, YOAN Unavailable [address] + [place] [address] [facility] Unavailable [address] + [place] [address] OSBALDO, YOAN Unavailable [address] [phone] [place] [address] OAR[facility] Unavailable [address] + [place] [address] OSBALDO, YOAN Unavailable [address] [phone] [place] [address] [facility] Unavailable [address] + [place] [address] OSBALDO, YOAN Unavailable [address] [phone] [place] [address] [facility] Unavailable [address] + [place] [address] OSBALDO, YOAN Unavailable [address] [phone] [place] [address] O[place] Unavailable [address] + [place] [address] OSBALDO, YOAN Unavailable [address] + [place] [address] OSBALDO, MALVIN Unavailable Unavailable Unavailable CLOVER FERRERA Unavailable Unavailable Unavailable [place], [place] YOAN ROBLERO Unavailable [address] [phone] [place] [address] O[place] Unavailable [address] + [place] [address] YOAN ROBLERO Unavailable [address] [address] [phone] [place] [address] [facility] Unavailable [address] + [place] [address] Care Team Providers Name Role Phone ELAINE ZHOU Attending Unavailable ELAINE ZHOU Referring Unavailable TRAVIS, SALINAS R Primary Care Unavailable Irene LEACH Attending Unavailable SELF, SELF Referring Unavailable TRAVIS, SALINAS R Primary Care Unavailable Irene LEACH Attending Unavailable Irene LEACH Referring Unavailable TRAVIS, SALINAS R Primary Care Unavailable ISRA MISHRA Attending Unavailable Irene LEACH Referring Unavailable TRAVIS, SALINAS R Primary Care Unavailable Irene LEACH Attending Unavailable SELF, SELF Referring Unavailable TRAVIS, SALINAS R Primary Care Unavailable Praiker, Kaushik Attending Unavailable Travis, Salinas Primary Care Unavailable Praiker, Kaushik Referring Unavailable DOCTOR, OUT OF TOWN Attending Unavailable JANELLE LAINEZ Referring Unavailable Travis, Salinas Primary Care Unavailable Prah, Kaushik Attending Unavailable Praiker, Kaushik Referring Unavailable Travis, Salinas Primary Care Unavailable Soo, Kaushik Consulting Unavailable Travis, Salinas Primary Care Unavailable Malvin Perez Attending Unavailable Malvin Nuñez Attending Unavailable Travis, Salinas Referring Unavailable Travis, Salinas Primary Care Unavailable Malvin Nuñez Attending Unavailable Travis, Salinas Referring Unavailable Travis, Salinas Primary Care Unavailable Travis, Salinas Attending Unavailable Travis, Salinas Primary Care Unavailable Travis, Salinas Referring Unavailable Travis, Salinas Attending Unavailable Travis, Salinas Referring Unavailable Travis, Salinas Primary Care Unavailable Travis, Salinas Attending Unavailable Travis, Salinas Referring Unavailable Travis, Salinas Primary Care Unavailable Prah, Kaushik Attending Unavailable Prah, Kaushik Referring Unavailable Travis, Salinas Primary Care Unavailable Prah, Kaushik Attending Unavailable Travis, Salinas Primary Care Unavailable Prah, Kaushik Consulting Unavailable Xavier Reyes Admitting Unavailable Xavier Reyes Attending Unavailable Xavier Reyes Referring Unavailable Travis, Salinas Primary Care Unavailable Rasheed Guillory PA-C Attending Unavailable Salinas Travis Primary Care Unavailable Juliocesar Beck Attending Unavailable Xavier Reyes Referring Unavailable PROBLEMS PROBLEMS DATE TYPE CONDITION / CODE ATTENDING STATUS SOURCE 04/20/2018 Unknown Z96.642 - Presence Xavier Reyes Active [place] [facility] left artificial Community hip joint / Hospital Z96.642(ICD-10) Repository 04/11/2018 Unknown R00.1 - Juliocesar Beck Active [place] Bradycardia, Community unspecified / Hospital R00.1(ICD-10) Repository 02/20/2018 Admitting Follow-up / 145() Irene LEACH Active [facility] Repository 01/09/2018 Admitting Unilateral primary ISRA MISHRA Active [facility] diagnosis osteoarthritis, [facility] left hip / [facility] Medical M16.12(ICD-10) Center Repository 01/09/2018 Admitting Pain in left hip / Irene LEACH Active [facility] diagnosis M25.552(ICD-10) [facility] Repository 01/03/2018 Unknown D68.59 - Other Kaushik Vann Active [place] primary Community thrombophilia / Hospital D68.59(ICD-10) Repository 02/09/2018 Unknown M16.12 - Unilateral Salinas Travis Active [place] primary Community osteoarthritis, Hospital left hip / Repository M16.12(ICD-10) 11/17/2017 Unknown M25.559 - Pain in Salinas Travis Active [place] unspecified hip / Community M25.559(ICD-10) Hospital Repository 07/04/2017 Admitting Condition Update / ELAINE ZHOU Active [facility] diagnosis 178() [facility] Repository 06/26/2017 Unknown D68.52 - Kaushik Vann Active [place] Prothrombin gene Community mutation / Hospital D68.52(ICD-10) Repository 04/19/2017 Unknown ENCNTR FOR F/U EXAM DOCTOR, OUT OF Active [place] AFT TRTMT FOR [facility] NEOPLM / Repository Z09(ICD-10) 04/19/2017 Unknown COMPLETE DOCTOR, OUT OF Active [place] ROTATR-CUFF [facility] TEAR/RUPTR OF Hospital SHOULDER, NOT Repository TRAUMA / M75.121(ICD-10) PROCEDURES PROCEDURES No Procedure Records FoundRESULTS RESULTS INITAL EVALUATION (1) Observed: 04/23/2018 Status: F Source: [place] - PT 11:07 AM [facility] [place] REPOSITORY [facility] Physical Therapy [facility] [address] [place] [address] Fax REHABILITATION SERVICES INITIAL EVALUATION MR#: [id number] Acct: [id number] Name: MALVIN ROBLERO Rep #: [id number] : 1955 62 From: Dave Oliver PT, ATC Referring Dr.: Rasheed SINGH Status: REG RCR Insurance: [employer] SELF PAY INSURANCE Patient's Visit Information MALVIN ROBLERO is a 62 year old M referred to Physical Therapy by FRANCISCO Lyons with a diagnosis of L KEYA. Date of Evaluation: 04/23/18 Physical Therapist: Dave Oliver PT, - Visit Plan Frequency: 2-3x /Week Duration: 4-6 Weeks Plan: L LE stretching and strengthening, balance and proprio, core strengthening, gait training, nustep, and HEP - Subjective Findings: DOS: 04/18/18. Pt reports he had a L KEYA performed. Pt had an anterior approach performed. Pt notes he had a difficult sergery as he lost a lot of blood during that procedure. Pt reports he also developed a large hematoma in his L thigh which as resulted in increased pain. Pt notes he has been very dizzy and light headed when he attempts to stand up. Pt denies any L LE tingling or numbness. Pt reports occasional sleep difficulty secondary to pain. Pt rates his pain at 5/10 currently - Pain L hip Pain Intensity (Out of 10): 5 - Objective Neuro: B LE sensation is WNL to light touch. MMT: L LE is grossly 2/5 and painful with testing. R LE 5/5 throughout. ROM: L hip is limited by pain. R hip is WNL. Gait: Unable to assess today secondary to pt becoming dizzy secondary to pain meds - Goals Goal 1:: Decrease L hip pain x 50% to aid with sleep Goal Time Frame: 4-6 Weeks Goal 2:: Increase L hip strength x 1 grade to aid with RTW Goal Time Frame: 4-6 Weeks Goal 3:: Pt will be able to ambulate greater than 600 feet to aid with community ambulation Goal Time Frame: 4-6 Weeks Goal 4:: I with HEP Goal Time Frame: 4-6 Weeks - Rehabilitation Potential Physical Therapy Diagnosis: L hip pain, weakness, and limited ability to ambulate secondary to L KEYA Rehabilitation Potential: Good - Anticipated Interventions Patient/Client Instruction: Educate patient on: Condition, Plan of Care For the Purpose of:: To improve self management Therapeutic Exercise to Include: Strength training, Endurance training, Balance training, Gait and locomotor training, Dynamic Lumbar Stabilization For the Purpose of:: To decrease pain, To increase ROM, To improve muscle performance and motor function Cryotherapy (ice pack, ice massage): Yes For the Purpose of:: To decrease pain Thank you for the opportunity to evaluate your patient. For Medicare and Medicare HMO plans, please review the plan of care and approve it. It will need to be FAXED BACK to us at [phone] for Medicare purposes. For Medicare only, by signing this I certify the plan of care. Please let me know if there are questions or concerns regarding this plan of care. Physician Signature: Date: <Electronically signed by Dave Oliver PT, ATC> 04/23/18 1107 CC: Sal[place] Travis MD; Rasheed SINGH [facility] Signed DISCHARGE INSTRUCTION Observed: 04/20/2018 Status: F Source: [place] 7:20 AM [facility] REPOSITORY [facility] Medical Records Department [address] [place] [address] Instructions for Home/Discharge Instructions 04/20/18 0717 MR#: [id number] Acct: [id number] Name: MALVIN ROBLERO Rep #: [id number] : 1955 62 From: Rasheed Guillory PA-C PCP: Salinas Travis MD Status: ADM IN Discharge Diet: No Restrictions Discharge Activity: May Not Drive - while taking narcotic pain medications. May shower in (days): 1 - Turned dressing away from water Ice area for (Minutes): 20 - Every 1-2 hours while awake Weight Bearing Status: Weight bearing as tolerated Elevate: Operative Extremity Additional Activity Instructions:: Wear elastic stockings for 2 weeks. DO NOT use alcohol with narcotic pain medication. DO NOT make important decisions while taking narcotic medication. If you have problems with taking your medication (rash, itching, nausea, etc.) call the office at once. Call your doctor if your incision/area has: Increased Pain/ Swelling, Increased Redness, Foul Smelling Discharge Call your doctor if you observe: Fever of 101 or Higher Remove Dressing in (days):: 3 - Okay to remove dressing on April 23, 2018 Additional Instructions: Follow [place] [facility] postop instructions Continue to ice the left thigh every 1-2 hours while awake for 20 minutes Continue with incentive spirometry every hour Allergies/Adverse Reactions: Allergies cyclobenzaprine HCl [From Flexeril] Allergy (Severe, Verified 12/27/17 15:42) Swelling ketorolac tromethamine [From Toradol] Allergy (Severe, Verified 12/27/17 15:42) Swelling meloxicam Allergy (Severe, Verified 12/27/17 15:42) Swelling orphenadrine citrate [From Norflex] Allergy (Severe, Verified 12/27/17 15:42) Swelling Penicillins Allergy (Severe, Verified 12/27/17 15:42) Rash triamcinolone acetonide [From Kenalog] Allergy (Severe, Verified 12/27/17 15:42) Swelling Medications to take at Discharge Mometasone Furoate [Nasonex] 1 spray NASAL DAILY PRN 10/04/13 Omeprazole 1 tab PO DAILY 10/04/13 Losartan Potassium [Cozaar] 50 mg PO QODAY 04/16/15 Rivaroxaban [Xarelto] 20 mg PO DAILY 04/02/18 Acetaminophen [Tylenol] 1,000 mg PO Q8 #100 tab 04/20/18 Oxycodone [Oxyir] 5 - 10 mg PO Q4H PRN PRN 7 Days #80 tab 04/20/18 Senna/Docusate Sodium [Senokot-S] 2 tab PO BID #20 tab 04/20/18 The following prescriptions were given: Oxycodone [Oxyir] 5 - 10 mg PO Q4H PRN PRN 7 Days #80 tab PRN Reason: Mod-Severe Pain (4-02/28) Acetaminophen [Tylenol] 1,000 mg PO Q8 #100 tab Senna/Docusate Sodium [Senokot-S] 2 tab PO BID #20 tab Primary Care Physician: Salinas Travis MD [Primary Care Provider] - Test Results: Test results from this visit will be discussed in further detail at your follow-up appointment, if applicable. Please Follow Up With: [place] [facility] When: 04/23/18 @ 7:30 am Please Follow Up With: Rasheed Guillory PA-C When: 05/02/18 @ 8:15 am 04/20/1820 <Electronically signed by Rasheed Guillory PA-C> Date Rasheed Guillory PA-C CC: Salinas Travis MD CBC-COMPLETE BLOOD CNT Collected: 04/20/2018 Status: F Source: [place] NO DIFF 5:14 AM [facility] REPOSITORY TYPE CODE TESTS RESULT OUT OF RANGE REFERENCE UNITS LAB L100.1000 4.4-11.0 K/mm3 Normal WBC 7.1 LAB L100.1200 4.6-6.2 M/mm3 Low RBC 4.12 LAB L100.1300 13.0-16.5 g/dl Low HGB 12.4 LAB L100.1400 40-54 % Low HCT 36.1 LAB L100.1500 80-94 fL Normal MCV 87.6 LAB L100.1600 27.0-32.0 pg Normal MCH 30.1 LAB L100.1700 32-36 g/gl Normal MCHC 34.3 LAB L100.1810 11.6-14.6 % Normal RDW CV 12.9 LAB L100.1820 35.1-43.9 fl Normal RDW SD 41.5 LAB L100.1900 150-450 K/mm3 Normal PLT 157 LAB L100.2000 6.2-12.0 fl Normal MPV 8.9 Performed By: #### L100.0500 #### [facility] [address] [place], [address] HIP, UNI W/ PELVIS Observed: 04/19/2018 Status: F Source: [place] 2-3 VIEWS 9:32 AM [facility] REPOSITORY [facility] Imaging Services [address] [address] HIP, UNI W/ Pelvis 2-3 Views MR#: [id number] Acct: [id number] Name: MALVIN ROBLERO Rep #: [id number] : 1955 M 62 From: João Heard MD PCP: Sal[place] Travis MD Status: ADM IN Study: HIP, UNI W/ Pelvis 2-3 Views Date of Exam: 04/19/18 Exam# [id number] Ordering Dr: Rasheed Guillory PA-C STUDY: X-RAY - LEFT HIP REASON FOR EXAM: Male, 62 years old. Postoperative pain. TECHNIQUE: 2 views of the hip. COMPARISON: Comparison is made with prior examination dated April 18, 2018. FINDINGS: The patient is status post left total hip replacement. There is good alignment. Postoperative soft tissue changes and swelling. RAD/HIP, UNI W/ Pelvis 2-3 Views IMPRESSION: The patient is status post left total hip replacement. There is good alignment. Postoperative soft tissue changes and swelling. Electronically Signed: João Heard MD at 12:46 EST Tel [phone], Service support , CC: Salinas Travis MD; Rasheed SINGH Electronic Tech: Signed CBC-COMPLETE BLOOD CNT Collected: 04/19/2018 Status: F Source: [place] NO DIFF 6:14 AM [facility] REPOSITORY TYPE CODE TESTS RESULT OUT OF RANGE REFERENCE UNITS LAB L100.1000 4.4-11.0 K/mm3 Normal WBC 5.7 LAB L100.1200 4.6-6.2 M/mm3 Low RBC 3.98 LAB L100.1300 13.0-16.5 g/dl Low HGB 12.2 LAB L100.1400 40-54 % Low HCT 35.3 LAB L100.1500 80-94 fL Normal MCV 88.7 LAB L100.1600 27.0-32.0 pg Normal MCH 30.7 LAB L100.1700 32-36 g/gl Normal MCHC 34.6 LAB L100.1810 11.6-14.6 % Normal RDW CV 12.9 LAB L100.1820 35.1-43.9 fl Normal RDW SD 40.8 LAB L100.1900 150-450 K/mm3 Normal PLT 164 LAB L100.2000 6.2-12.0 fl Normal MPV 8.8 Performed By: #### L100.0500 #### [facility] [address] [place], [place], [address] BASIC METABOLIC Collected: 04/19/2018 Status: F Source: [place] PROFILE (BMP) 6:14 AM [facility] REPOSITORY TYPE CODE TESTS RESULT OUT OF RANGE REFERENCE UNITS LAB L501.0100 74-106 mg/dL Normal GLU 95 Result Comment: Please note revised GLUCOSE reference range effective 2017. LAB L501.1000 7-18 mg/dL Normal BUN 11 LAB L501.1100 0.70-1.30 mg/dL Normal CREAT,SERUM 0.94 Result Comment: The validity of the calculated GFR AND GFRAA in patients over 70 years has not been determined. Clinical correlation is essential. LAB L501.1110 >60 mL/min Normal EST GFR 86 Result Comment: Non- GFR Calc LAB L501.1115 >60 mL/min Normal EST GFR - AA 104 Result Comment: GFR Calc LAB L501.1255 ml/min Normal Estimated CRCL 85.67 LAB L501.1300 10-20 RATIO Normal BUN/CRE 11.7 LAB L501.2200 8.5-10 mg/dL Low .1 CA 7.4 LAB L501.5300 136-14 mmol/L Normal 5 NA 140 LAB L501.5600 3.5-5. mmol/L Normal 1 K 3.9 LAB L501.5900 98-107 mmol/L Normal CL 107 LAB L501.6100 21.0-3 mmol/L Normal 2.0 CO2 27.0 LAB L501.6200 5-15 Normal GAP 6 Performed By: #### L500.2500 #### [facility] [address] [place], [address] HH, HEMOGLOBIN AND Collected: 04/18/2018 Status: F Source: [place] HEMATOCRIT 5:15 PM [facility] REPOSITORY TYPE CODE TESTS RESULT OUT OF RANGE REFERENCE UNITS LAB L100.1300 13.0-16.5 g/dl Normal HGB 13.2 LAB L100.1400 40-54 % Low HCT 38.8 Performed By: #### L100.0600 #### [facility] [address] [place], [address] OPERATIVE REPORT Observed: 04/18/2018 Status: F Source: [place] 12:47 PM [facility] REPOSITORY [facility] Medical Records Department [address] [place] [address] Operative Report 04/18/18 1229 MR#: [id number] Acct: [id number] Name: MALVIN ROBLERO Rep #: [id number] : 1955 62 From: Xavier Reyes MD PCP: Salinas rTavis MD Status: ADM IN Location: [place] [id number] Report of Operation Date of Procedure: 04/18/18 Pre-Operative Diagnosis: Left hip primary osteoarthritis Post-Operative Diagnosis: Left hip primary osteoarthritis Surgery/Procedure Performed:: Left direct anterior total hip replacement Description of Surgical Findings:: Stable hip with equal leg lengths mainframe systems engineer: Malvin Yang mainframe systems engineer: Mary Anne Edge Type of Anesthesia:: Spinal Anesthesiologist: Kevin Liu Special Medications: 600 mg clindamycin, 1 g TXA at incision, 1 g TXA closure, 10 mg Decadron, joint cocktail (5 mg Duramorph, 30 mL of 0.5% Ropivicaine, 1000 units of epinephrine) Specimen's removed: Bony cuts Estimated Blood Loss (mL): 750 mL Fluids Replaced: 1800 mL crystalloid Description of Procedure: Components used: 1. Accolade 2 Sury femoral stem size 6 127 2. Sury trident acetabular shell size 58 mm 3. Sury X3 polyethylene F 4. Bartlett Biolox delta 36mm, -5mm femoral head Brief history operative indications: 62 yo m who failed conservative measures for their hip osteoarthritis. X-rays were consistent with osteoarthritis including joint space narrowing, osteophyte formation and subchondral cysts. Total hip replacement was discussed with the patient with risks and benefits including but not limited to blood loss, DVTs, PEs, neurovascular damage, dislocation, general risks of anesthesia including loss of life. Patient demonstrated an understanding medical clearance is obtained the patient was consented for surgery. Procedure: On the date of procedure the patient's L hip was marked in the preoperative area. Patient was then taken back to the operating room where anesthesia assumed control of the C-spine and airway and administered anesthetic. Patient was transferred to the operating table and placed in the supine position. The hips were placed at the break of the bed and a sacral bump was placed. The L lower extremity was then prepped out in a sterile fashion using chlorhexidine while the surgeon scrubbed. The PA was vital in the positioning of the patient. Upon reentering the room the L lower extremity was draped in the standard orthopedic fashion and the incision was marked. A timeout was called and everyone agreed upon the side, the site, the procedure be performed, antibody given, and patient's identity. At this time incision was made through skin, subcutaneous tissue, and fat down to fascia. The fascia was then incised and the TFL was retracted laterally. A retractor was placed on the lateral border of the femoral neck. Attention was directed to the inferior portion of the approach and all crossing vessels were identified and appropriately coagulated. A retractor was then placed on the medial portion of the femoral neck. The anterior capsule was then cleared of all soft tissue and then H shaped capsulotomy was made. The retractors were then placed inside the capsule. The femoral neck was identified and a cleanup cut was made. At this time a power corkscrew was used to remove the femoral head. Attention was then turned toward the acetabulum where the soft tissues were appropriately retracted and the acetabulum was sequentially reamed to 58 mm. A 58 mm cup was then selected and impacted into place. Acetabular liner was impacted into place and locking mechanism was verified. The position of the acetabular cup was then verified under live fluoroscopy. Attention was then turned to the femur. Soft tissue releases on the medial and lateral femoral neck were appropriately done, the leg was externally rotated and lateralized. A Vargas retractor was placed medially and proximally to the greater trochanter this allowed appropriate visualization and exposure of the femoral canal. Rongeour was then used to remove excess lateral bone. A canal finder and entry broach were used to open the proximal canal. Once we verified we were down the femoral canal we subsequently broached up to a size 6 femur. The appropriate neck was placed in the previously selected head was trialed with a -5 mm neck. Traction was pulled and the hip was reduced with internal rotation. Once it was appropriately reduced and stability was checked. There was minimal shuck, equal leg lengths and appropriate stability with hyperextension and external rotation as well as with 90 flexion and internal rotation. Fluoroscopy was then also used to verify the position of the components and leg lengths using the contralateral side for comparison. The trial components were then dislocated the proximal femur was again exposed and the components were removed from the wound. The final components were verified and opened. The wound was copiously irrigated out with normal saline. The acetabulum was checked for any residual debris. The final components were placed and impacted. Traction and internal rotation were again used to reduce the hip. After adequate reduction the hip remained stable with appropriate leg lengths. The final components were once again checked with live fluoroscopy and were found to be satisfactory. The wound was then lavaged for 1 minute with 2 g of TXA. Copiously irrigated with normal saline once more, and hemostasis was obtained using aqua Eliseo. We observe the wound for a period of time did not note any more bleeding. Closure was then done using #1 Vicryl runner to close the fascia. A 2-0 vicryl interuppted sutures were used to close the subcutaneous skin. A 3-0 Monocryl and Steri-Strips were used for final skin closure. A Silverlon dressing was placed. Patient was awakened by anesthesia and transferred to the [facility]. Patient was then transferred to the PACU for recovery. Postoperative plan: Patient will get 24 hours postop antibiotics. Patient will get in-house physical therapy and will be weight-bear as tolerated. Patient will follow up in office in 2 weeks for a wound check and x-rays. He will be restarted on Xarelto 20 mg starting tomorrow. During the course of the procedure the assisting surgeon played a vital role. His intimate knowledge of my steps in the procedure aided in safe and expedient completion of the procedure. The assisting surgeon played a vital rolls in positioning particularly in obtaining the appropriate positioning of the sacral bump. The assisting surgeon was also vital in the retraction of soft tissues during the exposure and especially the femoral work as this is a vital part of the procedure to prevent complications and fractures. The assisting surgeon was also vital and protecting soft tissues during times of bony cuts and reaming. The assisting surgeon was also important during reduction and dislocation of the joint and trials intraoperatively. Grafts/Implants Used: Sury Accolade 2, Trident 2 - Complications None - Admit VTE Documentation VTE Present on Admission: No VTE Mechan Device Prophylaxis: SCD's, Thigh High ALEXY Hose VTE Pharm Prophylaxis ordered?: Yes 04/18/18 1247 <Electronically signed by Xavier Reyes MD> Date Xavier Reyes MD CC: Salinas Travis MD; Xavier Reyes MD Signed HIP MIN 2 VIEWS Observed: 04/18/2018 Status: F Source: [facility] (PORTABLE) 12:29 PM [facility] REPOS[facility] Imaging Services [address] [place] [id number] Hip Min 2 Views (Portable) MR#: [id number] Acct: [id number] Name: MALVIN ROBLERO Rep #: [id number] : 1955 M 62 From: João Heard MD PCP: Salinas Travis MD Status: ADM IN Study: Hip Min 2 Views (Portable) Date of Exam: 04/18/18 Exam# [id number] Ordering Dr: Xavier Reyes MD STUDY: X-RAY - LEFT HIP REASON FOR EXAM: Male, 62 years old. Left total hip replacement. TECHNIQUE: 2 views of the hip. COMPARISON: Comparison is made with prior study dated November 17, 2017. FINDINGS: The patient is status post left hip replacement. There is good alignment. Postoperative soft tissue changes. RAD/Hip Min 2 Views (Portable) IMPRESSION: Status post left total hip replacement. There is good alignment. Postoperative soft tissue changes. Electronically Signed: João Heard MD at 13:16 EST Tel [phone], Service support , CC: Salinas Travis MD; Xavier Reyes MD Electronic Tech: Signed HIP 1 VIEW WITH Observed: 04/18/2018 Status: F Source: [facility] PELVIS 1:44 AM [facility] Imaging Services [address] [place] [address] Hip 1 view with Pelvis MR#: [id number] Acct: [id number] Name: OSBALDOMALVIN Rep #: [id number] : 1955 M 62 From: João Heard MD PCP: Salinas Travis MD Status: ADM IN Study: Hip 1 view with Pelvis Date of Exam: 04/18/18 Exam# [id number] Ordering Dr: Xavier Reyes MD STUDY: X-RAY - LEFT HIP REASON FOR EXAM: Male, 62 years old. Left anterior hip replacement. TECHNIQUE: 2 views of the hip. COMPARISON: Comparison is made with prior examination dated November 17, 2017. FINDINGS: Intraoperative imaging provided for left total hip replacement. RAD/Hip 1 view with Pelvis IMPRESSION: Intraoperative imaging provided for left total hip replacement. There is good alignment. Electronically Signed: João Heard MD at 14:45 EST Tel [phone], Service support , CC: Salinas Travis MD; Xavier Reyes MD Electronic Tech: Signed 12 LEAD ELECTROCARDIOGRAM Observed: 04/06/2018 Status: F Source: [facility] 2:40 PM [facility] Cardiovascular Services [address] [place] [address] EKG - [facility] 04/02/18 1016 MR#: [id number] Acct: [id number] Name: MALVIN ROBLERO Rep #: [id number] : 1955 62 From: Juliocesar Beck MD Attending Dr: Xavier Reyes MD Status: PRE IN Ordering Dr: Xavier Reyes MD Date: 04/02/18 Location: [facility] Sex: M C Admitted: Test Reason : Blood Pressure : / mmHG Vent. Rate : 056 BPM Atrial Rate : 056 BPM P-R Int : 170 ms QRS Dur : 102 ms QT Int : 412 ms P-R-T Axes : 030 007 011 degrees QTc Int : 397 ms Sinus bradycardia Otherwise normal ECG Confirmed by JULIOCESAR BECK MD ([id number]), communications editor ANALI BOBO ([id number]) on 04/06/2018 2:39:27 PM Referred By: Xavier Reyes Confirmed By:JULIOCESAR BECK MD 04/06/18 1439 Date Juliocesar Beck MD CC: Salinas Travis MD; Xavier Reyes MD Date Dictated: 04/02/18 1016 Date Transcribed: 04/02/18 1016 Electronic Tech: Signed CBC W/DIFF, AUTOMATED Collected: 04/02/2018 Status: F Source: [facility] 10:25 AM [facility] REPOS[facility] TYPE CODE TESTS RESULT OUT OF RANGE REFERENCE UNITS LAB L100.1000 4.4-11.0 K/mm3 Normal WBC 5.7 LAB L100.1200 4.6-6.2 M/mm3 Normal RBC 5.57 LAB L100.1300 13.0-16.5 g/dl High HGB 17.0 LAB L100.1400 40-54 % Normal HCT 49.0 LAB L100.1500 80-94 fL Normal MCV 88.0 LAB L100.1600 27.0-32.0 pg Normal MCH 30.5 LAB L100.1700 32-36 g/gl Normal MCHC 34.7 LAB L100.1810 11.6-14.6 % Normal RDW CV 13.2 LAB L100.1820 35.1-43.9 fl Normal RDW SD 42.2 LAB L100.1900 150-450 K/mm3 Normal PLT 193 LAB L100.2000 6.2-12.0 fl Normal MPV 9.1 LAB L100.2100 47-70 % Normal NEUT% 69.0 LAB L100.2200 19-41 % Low LY% 17.4 LAB L100.2300 0-10 % High MONO% 10.9 LAB L100.2400 0-5 % Normal EO% 1.8 LAB L100.2500 0-1 % Normal BASO% 0.4 LAB L100.2550 0.0-0.9 % Normal IM GRAN % 0.500 Result Comment: IG% - Immature Granulocytes (promyelocytes, myelocytes and metamyelocytes) > 1% indicates that a LEFT SHIFT is Present. LAB L100.2620 2.0-7.7 X10 3/uL Normal Absolute Neut 3.9 LAB L100.2720 0.83-4.51 X10 3/ul Normal Absolute Lymph 0.99 Performed By: #### L100.0100 #### [facility] Laboratory [address] [place], [place], [address] BASIC METABOLIC Collected: 04/02/2018 Status: F Source: [place] PROFILE (BMP) 10:25 AM [facility]POS[facility] TYPE CODE TESTS RESULT OUT OF RANGE REFERENCE UNITS LAB L501.0100 74-106 mg/dL Normal GLU 84 Result Comment: Please note revised GLUCOSE reference range effective 2017. LAB L501.1000 7-18 mg/dL Normal BUN 18 LAB L501.1100 0.70-1.30 mg/dL Normal CREAT,SERUM 1.01 Result Comment: The validity of the calculated GFR AND GFRAA in patients over 70 years has not been determined. Clinical correlation is essential. LAB L501.1110 >60 mL/min Normal EST GFR 79 Result Comment: Non- GFR Calc LAB L501.1115 >60 mL/min Normal EST GFR - AA 96 Result Comment: GFR Calc LAB L501.1255 ml/min Normal Estimated CRCL 79.73 LAB L501.1300 10-20 RATIO Normal BUN/CRE 17.8 LAB L501.2200 8.5-10 mg/dL Normal .1 CA 8.7 LAB L501.5300 136-14 mmol/L Normal 5 NA 142 LAB L501.5600 3.5-5. mmol/L Normal 1 K 4.6 LAB L501.5900 98-107 mmol/L Normal CL 105 LAB L501.6100 21.0-3 mmol/L Normal 2.0 CO2 27.0 LAB L501.6200 5-15 Normal GAP 10 Performed By: #### L500.2500 #### [facility] Laboratory [address] [facility] [address] Observed: 04/02/2018 Status: F Source: [facility] MRSA/SAID SCREEN 10:25 AM [facility] REPOS[facility] MRSA/SAID SCRN S. AUREUS S. aureus Negative MRSA MRSA Negative Performed By: #### M100.651 #### [facility] Laboratory [address] [facility] [address] HISTORY AND PHYSICAL Observed: 04/02/2018 Status: F Source: [place] EXAM 9:29 AM [facility] Medical Records Department [address] [place] [address] History and Physical 04/02/18 0929 MR#: [id number] Acct: [id number] Name: OSBALDOMALVIN Rep #: [id number] : 1955 62 From: Rasheed Guillory PA-C PCP: Salinas Travis MD Status: PRE IN Y Location[place] [facility] History and Physical DATE OF SURGERY: 04/18/2018 SCHEDULED PROCEDURE: Left Total Hip Arthroplasty HISTORY OF PRESENT ILLNESS: This is a 62-year-old male whose been having ongoing pain in his left hip for close to a year. Pain can reach as high as a 9/10. Patient's pain is constant, dull, aching, sharp, and stabbing. Patient has increased pain going up and down stairs, driving, walking any amount of distance. Sitting is temporarily helpful. Patient does have start up pain. He does complain of left groin pain. Pain does awaken him at night. Patient does sleep with a pillow between his legs. Patient states he has difficult time with activities of daily living including bathing and showering as well as getting dressed. Patient has tripped/stumbled secondary to his left hip. Patient also does complain of bilateral knee pain in which she has had previous arthroscopies in the past. Patient has tried rest and elevation with minimal relief. Patient did have a previous corticosteroid injection with minimal relief. Injection was done in December 2017. Patient has tried physical therapy and home exercises with no relief in symptoms. Patient has tried oral medications consisting of Tylenol arthritis. He denies previous surgery on the left hip. Patient has a medical history pertinent for hypertension as well as previous blood clots and pulmonary emboli. Patient has had 2 episodes of pulmonary emboli in bilateral lungs. First was in 2014 followed by 2016. At that time patient was seen by Dr. Vann, manager operating. 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 Patient has been on Cymbalta 20 mg daily since. He has not had any previous episodes. We have obtain surgical clearance from patient's primary care physician and manager operating. Material Liaison recommends stopping Xarelto 24 hours before surgery and resuming after. Patient currently denies any chest pain, shortness of breath, fevers chills, or recent infections. After failing conservative measures and discussing all treatment options with Dr. Xavier Reyes, the patient would like to proceed with a left total hip arthroplasty. REVIEW OF SYSTEMS: ROS: Const: Denies change in appetite, fever and weight change. CV: Denies chest pain, heart murmur and irregular heartbeat. Resp: Denies cough, pneumonia, shortness of breath, tuberculosis and wheezing. GI: Denies constipation, diarrhea, heartburn, nausea, rectal itching, bloody stools and vomiting. : Denies incontinence. Musculo: Reports gait disturbance and trouble walking, but denies leg swelling, pain and weakness. Skin: Reports Raynaud's, but denies history of shingles and tattoo. Neuro: Denies ambulatory dysfunction, dizziness, numbness/tingling and tremor. Psych: Denies anxiety, insomnia and stress. Juan/Lymph: Reports bleeding/bruising tendency, but denies anemia and past transfusion. Reviewed and updated. PAST MEDICAL HISTORY: Advance Care Plan: No Advance Directives Effective Date: 02/23/2018 PMH: Medical Problems: Arthritis, High Blood Pressure, History Of Phlebitis, Pulmonary Embolism Accidents: Fracture - (2017) LT SMALL FINGER Surgical Hx: Tonsillectomy - (1959) Knee Arthroscopy LT - (2004) [facility] Knee Arthroscopy RT - (2000) [facility] Shoulder Arthroscopy RT - (2016) [facility] Anesthesia Complications: Hard Time Waking Up Assistive Devices: Glasses Reviewed and updated. 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 Personal Habits: Cigarette Use: Never Smoked Cigarettes.Smokeless Tobacco: Never Used Smokeless Tobacco.Alcohol: Denies use.Drug Use: Denies Use.Enjoy Exercising: Daily. Reviewed, no changes. VITALS: Ht: 71 Wt: 194lb Wt k.998 BMI: 27.1 BP: 130/84 Pulse: 92 Resp: 18 T: 96.4 T: 35.8C ALLERGIES: Toprol Norflex Kenalog Meloxicam Flexeril Penicillin MEDICATIONS: Clindamycin 600 mg. take orally one hour prior to procedure, Xarelto 20 mg 1 tab PO daily, Losartan Potassium 50 mg 1 tab PO every other day, Omeprazole 40 mg 1 cap PO daily PRE-OP EXAM: General appearance:NORMAL Other: Eyes: Conjunctivae and lids: NORMAL Pupils: ERR Ears, Nose, Mouth, and Throat: NORMAL Other: Inspection of lips, teeth and gums: NORMAL Other: Neck: Examination of neck: no masses noted. Respiratory: Assessment of respiratory effort: NORMAL Other: Auscultation of lungs: clear to auscultation no wheezes, rhonchi or rales. Cardiovascular: Auscultation of heart: regular rate and rhythm, no murmurs, gallops or rubs. Exam of carotid arteries: NORMAL Other: Gastrointestinal: Exam of abdomen: soft, nontender, nondistended bowel sounds present. PHYSICAL EXAMINATION: Patient does walk with an antalgic gait. Left hip is cool to touch without erythema. Patient has left hip flexion 95, internal rotation 10, external rotation 35. Patient does have crepitus in the left knee. He has pain with flexion,adduction, internal rotation which does reproduce his left hip pain. Sensation intact to light touch. Neurovascularly intact. IMAGING STUDIES: 1. X-rays from [facility] do show bilateral cam lesions with pistol cherry dipper deformity of bilateral femoral head and necks with acetabular impaction injuries. On the left there is more significant joint space narrowing and acetabular osteophyte formation. This is consistent with moderate severe left hip osteoarthritis. 2. X-rays at [facility] were obtained on April 02, 2018 including AP pelvis which does show moderate to severe left hip osteoarthritis with joint space narrowing and osteophyte formation. There is bilateral cam lesions. IMPRESSION: 1. Left hip moderate to severe osteoarthritis 2. Hypertension 3. History of DVT and pulmonary emboli 4. Factor II deficiency: Xarelto PLAN: Dr. Xavier Reyes did discuss and review with the patient all treatment options including surgical versus nonsurgical options. Patient does wish to proceed with the above-stated procedure. Potential risks, benefits, and complications of the procedure were discussed in detail including but not limited to , infection, nerve and blood vessel damage, persistent pain, numbness, tingling, paresthesias, blood clot, pulmonary embolism, and requirement for possible further surgery. The patient expressed full understanding and has no further questions for the doctor. Patient does agree to proceed with the above-stated procedure and has signed the surgery consent form. Material Liaison recommends stopping his Xarelto 24 hours prior to surgery and resuming after. This dictation was created using voice recognition software. Phonetic and/or grammatical errors may exist.. ___ I have re-examined the patient. There are no clinical changes since date of exam. ___ See progress notes for changes. ___ Dictated on admission Date: Time: Signature: 04/02/18 0929 <Electronically signed by Rasheed Eshenaur PA-C> Date Rasheed Guillory PA-C Cosigner Signature: Date (if applicable) CC: Salinas Travis MD; Rasheed SINGH Signed XR HIP LEFT 2 VIEWS Observed: 01/09/2018 Status: F Source: [facility] 10:58 AM [facility] REPOSITORY EXAM: Three-view left hip VIEWS,, 01/09/2018 10:41 AM COMPARISON: No prior studies available for comparison. CLINICAL INDICATIONS: left hip pain RELEVANT CLINICAL HISTORY: M25.552:Left hip pain Standing AP Pelvis / Standing AP left hip / true lateral left hip -all views with 30 MM calibration marker. Please place close to affected hip at the level of the bone but without obscuring bone detail.; FINDINGS: 3 images obtained. There is a moderate degree of osteoarthritis with superior lateral joint space narrowing. There is a cam and pincer morphology. No acute fracture. There is minimal trochanteric enthesopathy. No pathologic soft tissue calcifications. There is osteoarthritic changes of the right hip. There is diffuse pelvic enthesopathy. Osseous densities are superior to the right lesser trochanter which could be posttraumatic. Degenerative changes are noted in the lower lumbar spine and SI joints. IMPRESSION: Osteoarthritis with a cam and pincer morphology. No acute osseous abnormality LOGY VISIT REPORT Observed: 12/27/2017 Status: F Source: [facility] 4:10 PM [facility] [address] [place] [address] OFFICE VISIT Date of Service: 12/27/17 1601 MR#: [id number] Acct: [id number] Name: OSBALDOMALVIN ABRAMS Melyssa Rep #: [id number] : 1955 From: Kaushik Vann MD Age/Sex: 62/M Location: [facility] Status: Signed Subjective - Date of Service Date of Service:: 12/27/17 - Chief Complaint F/u for Thrombophilia mgmt. - History of Present Illness 62y.o.man presented with pleuritic chest pain and dyspnea in March 2015. He was found to have a pulmonary embolism and was treated with Lovenox and then Xarelto. He discontinued Xarelto after 6 months and then developed a DVT of the left leg with pulmonary embolism in October 2015. Hypercoagulable work-up showed prothrombin gene mutation, and was started on life long Xarelto. He remains on Xarelto and comes in for follow-up. Denies new clotting episodes, has developed pain in the L hip, making it difficult for him to walk. - Past Medical/Social History Past Medical History Past Medical History: Anemia,Clotting disorder,GERD,Hypertension, Pulmonary embolism Past Surgical History Surgical: Tonsillectomy Other Surgical History: BILATERAL ACL REPLACEMENT SINUS Family History Paternal Past Medical History: Arthritis,Hypertension Maternal Past Medical History: Unknown Social History Social History: No changes Smoking Status Never smoker Review of Systems Constitutional:: Reports: Pain - Left hip.. Denies: Weakness, Fatigue, Fever, Sweats Cardiovascular:: Denies: Chest pain, Palpitations, Dyspnea on exertion, Orthopnea, PND, Shortness of breath Respiratory: Denies: Cough, Hemoptysis, Shortness of Breath, Wheezing Gastrointestinal:: Denies: Abdominal pain, Nausea, Vomiting, Diarrhea, Constipation, Hematochezia Genitourinary: Denies: Dysuria, Hematuria, 15, Flank pain Musculoskeletal:: Reports: Joint stiffness - L hip. Denies: Back pain, Myalgia, Arthralgia Skin: Denies: Rash, Skin Changes, Wounds Neurological:: Denies: Headache, Dizziness, Visual changes, Tinnitus, Hearing loss Psychiatric: Denies: Anxiety, Depression, Homicidal Ideations, Suicidal Ideations Vital Signs Height 5 ft 11.5 in Weight: 87.09 kg Weight in Pounds 192.0 lbs Pulse Ox 98 - Physical Exam General: Alert, Oriented x3, No apparent distress HEENT: Atraumatic, PERRLA, EOMI, Normocephalic Oropharynx:: Dry mucosa Neck:: Supple, Trachea midline. Negative for: JVD, bilateral Cardiac:: Regular rate, Regular rhythm, Normal S1, Normal S2. Negative for: Murmur Lungs: Clear to auscultation, Excusion symmetrical. 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 Clinically stable with no new episodes of clotting. L hip pain. Plan is to continue Xarelto. Follow up with PCP for L hip pain. Return to clinic 6 months with CBC CMP. Medications: Prescriptions This Visit Medication Instructions Recorded Rivaroxaban [Xarelto] 20 mg PO DAILY #90 tab 12/27/17 Primary Care Provider: Salinas Travis Referring Provider: Kaushik Vann MD - Problem List (1) Prothrombin gene mutation Status: Chronic (2) History of thromboembolism Status: Resolved (3) Left hip pain Status: Acute Code Visit Office Visits / Consults: [id number] OV L3 Est 12/27/17 1610 <Electronically signed by Kaushik Vann MD> Date Kaushik Vann MD Cosigner Signature: Date (if applicable) CC: Salinas Travis MD CBC W/DIFF, AUTOMATED Collected: 12/27/2017 Status: F Source: [facility] 7:22 AM [facility] REPOS[facility] Order Comment: Reason for Laboratory Test . TYPE CODE TESTS RESULT OUT OF RANGE REFERENCE UNITS LAB L100.1000 4.4-11.0 K/mm3 Normal WBC 4.9 LAB L100.1200 4.6-6.2 M/mm3 Normal RBC 5.34 LAB L100.1300 13.0-16.5 g/dl Normal HGB 16.2 LAB L100.1400 40-54 % Normal HCT 46.6 LAB L100.1500 80-94 fL Normal MCV 87.3 LAB L100.1600 27.0-32.0 pg Normal MCH 30.3 LAB L100.1700 32-36 g/gl Normal MCHC 34.8 LAB L100.1810 11.6-14.6 % Normal RDW CV 13.3 LAB L100.1820 35.1-43.9 fl Normal RDW SD 42.0 LAB L100.1900 150-450 K/mm3 Normal PLT 186 LAB L100.2000 6.2-12.0 fl Normal MPV 9.6 LAB L100.2100 47-70 % Normal NEUT% 64.2 LAB L100.2200 19-41 % Normal LY% 21.4 LAB L100.2300 0-10 % High MONO% 10.3 LAB L100.2400 0-5 % Normal EO% 3.1 LAB L100.2500 0-1 % Normal BASO% 0.4 LAB L100.2550 0.0-0.9 % Normal IM GRAN % 0.600 Result Comment: IG% - Immature Granulocytes (promyelocytes, myelocytes and metamyelocytes) > 1% indicates that a LEFT SHIFT is Present. LAB L100.2620 2.0-7.7 X10 3/uL Normal Absolute Neut 3.1 LAB L100.2720 0.83-4.51 X10 3/ul Normal Absolute Lymph 1.04 Performed By: #### L100.0100, L500.4050 #### [facility] [address] [place], [address] COMPREHENSIVE METABOLIC Collected: 12/27/2017 Status: F Source: [facility] 7:22 AM [facility] REPOSIT[facility] Order Comment: Reason for Laboratory Test . TYPE CODE TESTS RESULT OUT OF RANGE REFERENCE UNITS LAB L501.0100 74-106 mg/dL High GLU 154 Result Comment: Fasting Glucose result greater than or equal to 126 mg/dL suggests DIABETES MELLITUS per A.D.A. criteria. Please note revised GLUCOSE reference range effective 2017. LAB L501.1000 7-18 mg/dL High BUN 20 LAB L501.1100 0.70-1.30 mg/dL Normal CREAT,SERUM 1.22 Result Comment: The validity of the calculated GFR AND GFRAA in patients over 70 years has not been determined. Clinical correlation is essential. LAB L501.1110 >60 mL/min Normal EST GFR 64 Result Comment: Non- GFR Calc LAB L501.1115 >60 mL/min Normal EST GFR - AA 77 Result Comment: GFR Calc LAB L501.1300 10-20 RATIO Normal BUN/CRE 16.4 LAB L501.1500 6.4-8.2 g/dL T Normal PROT 6.5 LAB L501.1800 3.2-5.0 g/dL Normal ALB 3.6 LAB L501.1950 2.2-4.2 g/dL Normal GLOB 2.9 LAB L501.2000 0.9-2.4 RATIO Normal A/G 1.2 LAB L501.2200 8.5-10.1 mg/dL Low CA 8.3 LAB L501.4100 15-37 U/L Normal AST 22 LAB L501.4305 45-117 U/L Normal ALK P 89 LAB L501.4405 16-61 U/L Normal ALT 28 LAB L501.4600 0.20-1.00 mg/dL T Normal BILI 0.40 LAB L501.5300 136-145 mmol/L NA Normal 144 LAB L501.5600 3.5-5.1 mmol/L K Normal 4.0 LAB L501.5900 98-107 mmol/L High CL 108 LAB L501.6100 21.0-32.0 mmol/L Normal CO2 27.0 LAB L501.6200 5-15 Normal GAP 9 Performed By: #### L100.0100, L500.4050 #### [facility] [address] [place], [place], [address] INITAL EVALUATION (1) Observed: 11/28/2017 Status: F Source: [facility] Jim[facility] 8:59 AM [facility] REPOSITORY [facility] Physical Therapy [facility] [place], [place] [address] Fax REHABILITATION SERVICES INITIAL EVALUATION MR#: [id number] Acct: [id number] Name: MALVIN ROBLERO Rep #: [id number] : 1955 62 From: Dave Oliver PT, ATC Referring Dr.: Salinas Travis MD Status: REG RCR Insurance: [employer]ANCE Patient's Visit Information MALVIN ROBLERO is a 62 year old M referred to Physical Therapy by Salinas Travis with a diagnosis of L hip OA. Date of Evaluation: 11/28/17 Physical Therapist: Dave Oliver PT, - Visit Plan Frequency: 2x /Week Duration: 4 Weeks Plan: L hip strengthening, core stab ex's, balance and proprio ex's, nustep, and HEP - Subjective Subjective: Pt reports he has had chronic L hip pain for several years. Pt notes he could usually just walk it off. However, since september of this year, his pain has remained and progressively worsened. Pt notes he had xrays, which revealed OA. Pt reports his pain is located in the groin region, his posterior glute region, and down his leg to his knee region. Pt reports walking and sitting both increase his pain at times. Pt reports tylenol doesnt really help. Pt reports occasional sleep diff secondary to the pain. Pt reports he has to sleep on his back secondary to the pain. Pt reports he has a very diff time with getting in and out of a car. 1/10 at rest, 10/10 at worst (partial squat to get into the cabinets) - Pain L hip Pain Intensity (Out of 10): 1 Pain Intensity Range: 10 - Objective Neuro: B LE sensation is WNL to light touch. B pat tendon reflex= 2/3. MMT: L hip flex= 4-/5, IR/ER= 4/5. All other B LE MMT 5/5 throughout. LE ROM: WNL. L/S ROM: Pt is moderately limited with ext of the L/S. All other ranges WNL. special tests: Pt has a pos quadrant test of the L hip. leg length is eqaul. Repeated movements: Pt does have a mild pain with repeated ext, but pain is centralized in the L/S. NE with RFIS. - Goals Goal 1:: Decrease L hip pain x 50% to aid with sleep Goal Time Frame: 4-6 Weeks Goal 2:: Increase L hip strength x 1 grade to aid with improving tolerance for ambulation Goal Time Frame: 4-6 Weeks Goal 3:: I with HEP Goal Time Frame: 4-6 Weeks - Rehabilitation Potential Physical Therapy Diagnosis: Pt has L hip pain, weakness, and difficulty with ambulation secondary to OA of L hip Rehabilitation Potential: Good - Anticipated Interventions Patient/Client Instruction: Educate patient on: Condition, Plan of Care For the Purpose of:: To improve self management Therapeutic Exercise to Include: Strength training, Endurance training, Flexibilty training, Gait and locomotor training, Dynamic Lumbar Stabilization For the Purpose of:: To decrease pain, To increase ROM, To improve muscle performance and motor function Cryotherapy (ice pack, ice massage): Yes Thermo therapy (hot pack): Yes Ultrasound (thermal/non thermal): Yes For the Purpose of:: To decrease pain, To improve ability to perform tasks related to life management Thank you for the opportunity to evaluate your patient. For Medicare and Medicare HMO plans, please review the plan of care and approve it. It will need to be FAXED BACK to us at [phone] for Medicare purposes. Please let me know if there are questions or concerns regarding this plan of care. Physician Signature: Date: <Electronically signed by Dave Oliver PT, ATC> 11/28/17 0859 CC: Salinas Travis MD [facility] Signed For Medicare only, by signing this I certify the plan of care. Physicians Signature Date HIPS B/L MIN 2 Observed: 11/17/2017 Status: F Source: CRYSTAL VIEWS W/ PELVIS 8:43 AM [facility] Imaging Services [address] [place] [address] Hips B/L min 2 views w/ Pelvis MR#: [id number] Acct: [id number] Name: MALVIN ROBLERO Rep #: [id number] : 1955 M 62 From: João Heard MD PCP: Salinas Travis MD Status: REG CLI Study: Hips B/L min 2 views w/ Pelvis Date of Exam: 11/17/17 Exam# [id number] Ordering Dr: Salinas Travis MD STUDY: X-RAY - PELVIS AND BILATERAL HIPS REASON FOR EXAM: Male, 62 years old. Bilateral hip pain. TECHNIQUE: Radiological exam, hip, bilateral, with pelvis when performed; 2 views COMPARISON: Comparison is made with prior study dated January 27, 2016. FINDINGS: There is a non-specific bowel gas pattern. Normal visualized soft tissue structures. Normal bilateral iliac wings, sacroiliac joints and visualized sacrum. Normal bilateral superior and inferior pubic rami. Normal pubic symphysis. Normal bilateral ischial tuberosities. Normal visualized right femoral head. There is osteoarthritic spur formation of the right acetabular rim. There is mild articular joint space narrowing of the right hip. Normal visualized left femoral head. There is osteoarthritic spur formation of the left acetabular rim. There is mild articular joint space narrowing of the left hip. RAD/Hips B/L min 2 views w/ Pelvis IMPRESSION: Degenerative acetabular spurs bilaterally. Electronically Signed: João Heard MD at 12:40 EDT Tel [phone], Service support , CC: Salinas Travis MD Electronic Tech: Signed NCS AND/OR EMG Observed: 09/19/2017 Status: F Source: [place] PATIENT 10:42 AM [facility] Pulmonary Services/Neurology [address] [place] [address] MR#: [id number] Acct: [id number] Name: OSBALDOMALVIN Melyssa Rep #: [id number] : 1955 62 From: Carrington Wetzel MD Referring Dr: Salinas Travis MD Status: REG CLI Ordering Dr: Date: Location: N Sex: M C NCS and/or EMG Patient Report Ordering Doctor: Salinas Travis DATE OF SERVICE: 09/19/17 This is a bilateral lower extremity nerve conduction study and a left lower extremity EMG performed on this 62-year-old male who is otherwise healthy, who has a mild nonspecific pain including numbness in the balls of his feet bilaterally as well as his toes somewhat worse on the left side present for approximately 1 year. There is a family history of idiopathic neuropathy in his mother. On physical examination the patient does have hammertoe deformities and very mild loss of proprioception in his toes. Reflexes are intact. Bilateral lower extremity sensory and motor nerve conduction studies are performed. The sural sensory and medial plantar sensory responses are intact. The bilateral common peroneal conduction velocities are slowed mildly with reduction in amplitude and prolonged latencies. The tibial motor latencies are also prolonged with mild reduction in amplitude and mild slowing of conduction velocities. The tibial and common peroneal F waves bilaterally are prolonged and the H reflex responses bilaterally are reduced. Left lower extremity needle electromyography is performed. Muscles evaluated included the abductor hallucis, extensor digitorum brevis, medial gastrocnemius, anterior tibialis, vastus lateralis, and vastus medialis. Distal muscles demonstrated large motor units with early recruitment. These abnormalities resolve more proximally in a length dependent pattern. 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 09/19/17 1042 <Electronically signed by Carrington Wetzel MD> Date Carrington Wetzel MD CC: Carrington Wetzel MD; Salinas Travis MD Date Dictated: 09/19/17 1034 Date Transcribed: 09/19/17 1034 Electronic Tech: GARRETT Signed ORTHOPEDIC VISIT Observed: 08/31/2017 Status: F Source: CRYSTAL REPORT 9:19 AM [facility] Orthopaedics AND Sports Medicine [address] [place] [address] OFFICE VISIT Date of Service: 08/28/17 MR#: [id number] Acct: [id number] Name: MALVIN ROBLERO Melyssa Rep #: [id number] : 1955 Provider: Malvin Nuñez DO Age/Sex: 61/M Location: [facility] [place] Status: Signed Intake Intake Visit Reasons: REMOVE SUTURES LT PINKY FINGER Is patient in pain?: No Allergies cyclobenzaprine HCl [From Flexeril] Allergy (Severe, Verified 08/14/17 21:06) Swelling ketorolac tromethamine [From Toradol] Allergy (Severe, Verified 08/14/17 21:06) Swelling meloxicam Allergy (Severe, Verified 08/14/17 21:06) Swelling orphenadrine citrate [From Norflex] Allergy (Severe, Verified 08/14/17 21:06) Swelling Penicillins Allergy (Severe, Verified 08/14/17 21:06) Rash triamcinolone acetonide [From Kenalog] Allergy (Severe, Verified 08/14/17 21:06) Swelling Medications Mometasone Furoate [Nasonex] 1 spray NASAL DAILY PRN 10/04/13 [History Confirmed 08/14/17] Omeprazole 1 tab PO DAILY 10/04/13 [History Confirmed 08/14/17] Losartan Potassium [Cozaar] 50 mg PO QODAY 04/16/15 [History Confirmed 08/14/17] Rivaroxaban [Xarelto] 20 mg PO DAILY #90 tab 08/11/17 [Rx Confirmed 08/14/17] PFSH Surgical History H/O sinus surgery (Acute) History of repair of anterior cruciate ligament of left knee (Acute) History of repair of anterior cruciate ligament of right knee (Acute) History of repair of rotator cuff (Acute) History of shoulder surgery (Acute) Hx of tonsillectomy (Acute) Family History Father Arthritis Hypertension Social History Smoking Status: Never smoker HPI REMOVE SUTURES LT PINKY FINGER: Details: MALVIN ROBLERO is a 61 year old M here today for suture removal and wound check. He has no pain and limited rom. Laceration is healing well. Denies numbness, tingling or other associated symptoms. ROS Musc Reports limited joint movement, Reports stiffness, Denies numbness, Reports as per HPI Neuro No numbness Ortho Exam Right Wrist/Hand Skin/Wound: No Swelling, No Ecchymosis Left Wrist/Hand Skin/Wound: Yes CDI, Yes suture/rei removed, Yes healed, No wound cleaned, No wound care, No Swelling, No Ecchymosis, No nail intact Contralateral Normal: Yes A1 daniel trigger: No Left Wrist: Yes ROM-Extension 0-60, Yes ROM-Flexion 0-80, Yes ROM-Pronation 0-80, Yes ROM-Supination 0-90, Yes TTP Fracture site, Yes Snuffbox tenderness, Yes Durken's Test, Yes Shaquille's Test and Yes Garcia Test Motor: EPL: 5, FDP-2: 5, 1st Dorsal Interosseous: 5, APB: 5 Sensation: Radial: I, Ulnar: I, Median: I WRIST: Sutures removed Steri-Strips were applied. Patient shows mild stiffness of the DIP joint as be expected from the splinting as relates to his previous fracture. Otherwise no signs of any advancing infection or any Knievel signs to the flexor tendon. P-[id number] with the patient one additional time-patient has a distal phalanx tuft fracture transverse minimal to nondisplaced Assessment AND Plan Problems 1. Open nondisplaced fracture of distal phalanx of left little finger with routine healing, subsequent encounter S61.665D Plan a/p: Patient's finger looks well. He has responded well to the suture removal. At this point I would encourage the patient to remove the stack splint to work on gentle range of motion about the IP joint of his fingers. I warned the patient that the IP joints of the fingers are very sensitive to mobilization and fingers can get stiff. Reason for the stack splint is to prevent irritation to the fracture of the tuft if he is to be doing more manual type labor exercises. Otherwise he does need to wear the stack splint as he feels comfortable. Patient at this point time I will see him back in 4 weeks as needed if desired. I typically do not react radius fractures unless the patient is symptomatic. Patient agrees with plan. Any major issues return Coding Level of Care Code Off vis,est,level 3 Diagnoses Open nondisplaced fracture of distal phalanx of left little finger with routine healing, subsequent encounter X28.669D Encounter type: subsequent encounter Fracture alignment: nondisplaced Fracture healing: with routine healing 08/31/17 0919 <Electronically signed by Malvin Nuñez DO> Date Malvin Nuñez DO Cosign Signature: Date (if applicable) CC: ORTHOPEDIC VISIT Observed: 08/23/2017 Status: F Source: CRYSTAL REPORT 2:26 PM [facility] Orthopaedics AND Sports Medicine [address] [place] [address] ESTELITA Rojas [address] OFFICE VISIT Date of Service: 08/21/17 MR#: [id number] Acct: [id number] Name: MALVIN ROBLERO Melyssa Rep #: [id number] : 1955 Provider: Malvin Nuñez DO Age/Sex: 61/M Location: [facility] [place] Status: Signed Intake Intake Visit Reasons: LEFT HAND Is patient in pain?: Yes Pain scale (1-10): 1 Allergies cyclobenzaprine HCl [From Flexeril] Allergy (Severe, Verified 08/14/17 21:06) Swelling ketorolac tromethamine [From Toradol] Allergy (Severe, Verified 08/14/17 21:06) Swelling meloxicam Allergy (Severe, Verified 08/14/17 21:06) Swelling orphenadrine citrate [From Norflex] Allergy (Severe, Verified 08/14/17 21:06) Swelling Penicillins Allergy (Severe, Verified 08/14/17 21:06) Rash triamcinolone acetonide [From Kenalog] Allergy (Severe, Verified 08/14/17 21:06) Swelling Medications Mometasone Furoate [Nasonex] 1 spray NASAL DAILY PRN 10/04/13 [History Confirmed 08/14/17] Omeprazole 1 tab PO DAILY 10/04/13 [History Confirmed 08/14/17] Losartan Potassium [Cozaar] 50 mg PO QODAY 04/16/15 [History Confirmed 08/14/17] Rivaroxaban [Xarelto] 20 mg PO DAILY #90 tab 08/11/17 [Rx Confirmed 08/14/17] Cefadroxil [Duricef] 1,000 mg PO BID #40 cap 08/15/17 [Rx] PFSH Surgical History H/O sinus surgery (Acute) History of repair of anterior cruciate ligament of left knee (Acute) History of repair of anterior cruciate ligament of right knee (Acute) History of repair of rotator cuff (Acute) History of shoulder surgery (Acute) Hx of tonsillectomy (Acute) Family History Father Arthritis Hypertension Social History Smoking Status: Never smoker HPI LEFT HAND: Details: MALVIN ROBLERO is a 61 year old M here today for left 5th finger injury. He crushed his 5th finger between rocks, last week. He had a large cut and went to the ED. Patient had xrays which showed a fracture and his laceration was closed with sutures. He was put into a splint which he has been wearing at all times. Patient has removed his bandages and cleaned the wound twice. He has been taking his antibiotic as prescribed. Patient has numbness of his finger. ROS Const Reports system reviewed and no additional complaints, except as docu Eyes Reports system reviewed and no additional complaints, except as docu ENT Reports system reviewed and no additional complaints, except as docu Card Reports system reviewed and no additional complaints, except as docu Resp Reports system reviewed and no additional complaints, except as docu GI Reports system reviewed and no additional complaints, except as docu Reports system reviewed and no additional complaints, except as docu Skin/Breast Reports system reviewed and no additional complaints, except as docu Neuro Yes system reviewed and no additional complaints, except as docu Psych Reports system reviewed and no additional complaints, except as docu Endo Reports system reviewed and no additional complaints, except as docu Ortho Exam Right Wrist/Hand Skin/Wound: Yes Swelling, Yes nail intact Contralateral Normal: Yes A1 daniel trigger: No Right Wrist: Yes ROM-Extension 0-60, ROM-Flexion 0-80, ROM- Pronation 0-80 and ROM-Supination 0-90 Motor: EPL: 5, FDP-2: 5, 1st Dorsal Interosseous: 5, APB: 5 Sensation: Radial: I, Ulnar: I, Median: I WRIST: Patient is alert oriented 3 in no acute distress. Appropriate eye contact and affect. Left Wrist/Hand Skin/Wound: Yes Swelling Contralateral Normal: Yes A1 daniel trigger: No Left Wrist: Yes ROM-Extension 0-60, Yes ROM-Flexion 0-80, Yes ROM-Pronation 0-80 and Yes ROM-Supination 0-90 Motor: EPL: 5, FDP-2: 5, 1st Dorsal Interosseous: 5, APB: 5 Sensation: Radial: I, Ulnar: I, Median: I WRIST: Patient intact from the C5-T2 distributions. Patient shows multiple sutures to the left small finger essentially across the ulnar aspect moving into the top. His nailbed is currently intact. He has a small hematoma underneath the nail bed of less than 50%. Mild swelling but no signs of any flexor tenosynovitis. No erythema. X-rays: Evaluated myself the patient-patient has a tuft fracture on plain radiographs of the left small finger of the distal phalanx. Assessment AND Plan Problems 1. Open nondisplaced fracture of distal phalanx of left little finger, initial encounter S62.108G Plan Assessment: Left small finger distal phalanx open fracture Plan: At this point time patient has multiple sutures in place. My preference would have been half as many allow for soft tissue swelling but at this point time they are in place were to continue to follow conservative manner. Place the patient into a new dressing and then placed into a little bit larger stack splint to marked start some gentle range of motion. Patient can remove the stack splint as needed for hand care. I told him perform some soft tissue step soaks in [place] and then redressed the wound. We will see him back in around 7-10 days for suture removal. Patient agrees with plan. There is any signs of any acute infection is return immediately. Coding Level of Care Code Off vis,new,level 3 Diagnoses Open nondisplaced fracture of distal phalanx of left little finger, initial encounter M22.982J Encounter type: initial encounter Fracture alignment: nondisplaced 08/23/17 1426 <Electronically signed by Malvin Nuñez DO> Date Malvin Nuñez DO Cosigner Signature: Date (if applicable) CC: EMERGENCY DEPARTMENT Observed: 08/15/2017 Status: F Source: CRYSTAL SUMMARY 12:14 AM [facility] Medical Records Department [address] [place] [address] Emergency Department Summary 08/14/17 2358 MR#: [id number] Acct: [id number] Name: MALVIN ROBLERO Rep #: [id number] : 1955 61 From: Malvin Perez MD PCP: Salinas Travis MD Status: REG ER - ER Visit Summary Date of Service: 08/14/17 Chief Complaint: Finger laceration History of Present Illness: The patient is a 61 M presents to the emergency department with crush injury to his left small finger. Patient was outside moving rocks. He states he picked one up and slipped. He ended up getting his left small finger stuck between 2 rocks. He had immediate pain and bleeding. The patient is on Xarelto. He has a history of factor II deficiency. He is otherwise healthy. Last tetanus was less than 7 years ago. He denies any other injury. He states that he did place a small pressure dressing was able to get the bleeding to stop. Physical Examination: Name is relatively unremarkable. There was no subungual hematoma. The patient's two-point discrimination is preserved. Flexor superficialis and flexor profundus are preserved. Cap refill is less than 2 seconds. Patient does have a 3 cm full-thickness L-shaped laceration with tissue avulsion. Test Results: [] Emergency Department Course and Treatment: Plain films are obtained. The patient does have a tuft injury. This does make this an open fracture. Digital block was performed. Under sterile conditions, the wound was aggressively irrigated with 300 cc of normal saline. There was scant for material that was able to be removed. It was examined. There was no active bleeding. There is no evidence of tendinous involvement. The wound was repaired with 15 simple interrupted suture. As this is an open fracture, the patient will require antibiotics. I am going to give him orthopedic follow-up. I did developmental training counselor him that if his symptoms worsen in any way he will need acutely reevaluated. He will be given follow-up with orthopedics to be seen within the next 48 hours. I did developmental training counselor him that if he cannot be seen to return to the emergency department. The patient is comfortable this plan of care. I did spend time counseling him that as this is an open fracture, there is risk of wound healing difficulties and osteomyelitis. The patient will be discharged home. Treatment Plan: [] Disposition: Discharge Impression: 1. Open tuft fracture left fifth finger with laceration repair This note was generated with [employer] dictation software. It may contain incorrect words, spelling, and punctuation that were not noted in review of the chart prior to signing ED Disposition - Plan for ED Patient: Chief Complaint: Laceration Instructions: ED Fx Finger Open Prescriptions: Cefadroxil [Duricef] 1,000 mg PO BID #40 cap Referrals: Malvin Nuñez DO [STAFF PHYSICIAN] - Xavier Reyes MD [STAFF PHYSICIAN] - What to do if you have Problems For any increased pain, shortness of breath, bleeding, nausea or vomiting, chest pain, or any unexpected problems, contact your Primary Care Provider. Call [employer] [facility] ([phone]) or report to the closest Emergency Room. Call 911 if necessary. 08/15/17 0014 <Electronically signed by Malvin Perez MD> Date Malvin Perez MD Cosigner Signature (If Indicated): Date CC: Salinas Travis MD HAND MIN 3 VIEWS Observed: 08/14/2017 Status: F Source: [place]OLD 10:15 PM [facility] Imaging Services [address] [place] [address] Hand Min 3 Views MR#: [id number] Acct: [id number] Name: MALVIN ROBLERO Rep #: [id number] : 1955 61 From: William Hair DO PCP: Salinas Travis MD Status: REG ER Study: Hand Min 3 Views Date of Exam: 08/14/17 Exam# [id number] Ordering Dr: Malvin Perez MD STUDY: X-RAY - LEFT HAND REASON FOR EXAM: Male, 61 years old. Injury TECHNIQUE: 3 view(s) of the hand. COMPARISON: None. FINDINGS: Normal radiocarpal articulation. Normal distal radioulnar joint. Normal visualized carpal bones. Normal carpal articulations Normal carpometacarpal articulation of the thumb. Normal second through fifth carpometacarpal joints. Normal metacarpi. Normal metacarpophalangeal joint of the thumb. Normal interphalangeal joint of the thumb. Normal proximal and distal phalanges of the thumb. Normal metacarpophalangeal joints of the second through fifth fingers. Normal proximal and distal interphalangeal joints of the second through fifth fingers. Fracture is noted involving the tuft of the distal phalanx of the fifth finger. Soft tissue injury of the fifth finger. RAD/Hand Min 3 Views IMPRESSION: Fracture is noted involving the tuft of the distal phalanx of the fifth finger. Electronically Signed: William Hair DO at 23:04 EDT Tel [phone], Service support , CC: Malvin Perez MD; Salinas Travis MD Electronic Tech: Signed CBC W/DIFF, AUTOMATED Collected: 06/19/2017 Status: F Source: [place] 12:42 PM [facility] TYPE CODE TESTS RESULT OUT OF RANGE REFERENCE UNITS LAB L100.1000 4.4-11.0 K/mm3 Normal WBC 6.1 LAB L100.1200 4.6-6.2 M/mm3 Normal RBC 5.33 LAB L100.1300 13.0-16.5 g/dl Normal HGB 16.3 LAB L100.1400 40-54 % Normal HCT 46.8 LAB L100.1500 80-94 fL Normal MCV 87.8 LAB L100.1600 27.0-32.0 pg Normal MCH 30.6 LAB L100.1700 32-36 g/gl Normal MCHC 34.8 LAB L100.1810 11.6-14.6 % Normal RDW CV 13.1 LAB L100.1820 35.1-43.9 fl Normal RDW SD 41.6 LAB L100.1900 150-450 K/mm3 Normal PLT 165 LAB L100.2000 6.2-12.0 fl Normal MPV 9.3 LAB L100.2100 47-70 % Normal NEUT% 68.5 LAB L100.2200 19-41 % Normal LY% 19.1 LAB L100.2300 0-10 % Normal MONO% 10.0 LAB L100.2400 0-5 % Normal EO% 1.6 LAB L100.2500 0-1 % Normal BASO% 0.5 LAB L100.2550 0.0-0.9 % Normal IM GRAN % 0.300 Result Comment: IG% - Immature Granulocytes (promyelocytes, myelocytes and metamyelocytes) > 1% indicates that a LEFT SHIFT is Present. LAB L100.2620 2.0-7.7 X10 3/uL Normal Absolute Neut 4.2 LAB L100.2720 0.83-4.51 X10 3/ul Normal Absolute Lymph 1.17 Performed By: #### L100.0100 #### [facility] [address] [place], [place], [address] PT D/C SUMMARY (1) Observed: 06/07/2017 Status: F Source: [place] 7:55 AM [facility] Physical Therapy [facility] [address] [place] [address]. [address] [place], [place] [address] Fax REHABILITATION SERVICES DISCHARGE SUMMARY MR#: [id number] Acct: [id number] Name: MALVIN ROBLERO Rep #: [id number] : 1955 61 From: Dave Oliver PT, ATC Referring Dr.: OUT OF TOWN DOCTOR Status: REG RCR [facility] Summary It has been my pleasure to treat MALVIN ROBLERO under orders from Out of Town Doctor, ELMO HIGGINS for the diagnosis of R rot cuff repair with biceps tenodesis for a total of 37 visit(s). Discharge Date: Please see the following information for a summary of their discharge status. - Subjective Subjective: Pt reports he has no pain this date - Pain R shoulder Pain Intensity (Out of 10): 0 - Overall Improvement % Improvement: 90 - Objective Objective/Function: R shoulder pain 0/10. R shoulder ROM: flex= 170, abd= 160, ER= 50, IR WNL. MMT: 4+/5 throughout. I with HEP - Goals Goal 1:: Decrease R shoulder pain x 50% to aid with IADL's Goal Progress: Goal Met Goal 2:: Increase R shoulder strength x 1 grade to aid with RTW without limitations Goal Progress: Goal Met Goal 3:: Increase R shoulder ROM flex and abd x 40 degrees to aid with overhead activity Goal Progress: Goal Met Goal 4:: I with HEP Goal Progress: Goal Met - Plan Plan: Discharge - D/C Information If there are questions or concerns regarding this patient's physical therapy, please feel free to call me at [phone]. Thank you for the referral of this patient. Sincerely, Dave Oliver, PT, <Electronically signed by Dave Oliver PT, ATC> 06/07/17 0755 CC: OUT OF TOWN DOCTOR; Salinas Travis MD; ELMO HIGGINS [facility] Signed ALLERGIES ALLERGIES DATE TYPE / NAME / CODE REACTION SEVERITY SOURCE CODE 12/27/2017 Drug orphenadrine Swelling SV Crystal Allergy/41 citrate/[id number]([facility] [id number]) Repository 12/27/2017 Drug cyclobenzaprine Swelling SV Crystal Allergy/41 HCl/[id number](RX[facility] [id number]) Repository 12/27/2017 Drug triamcinolone Swelling SV Crystal Allergy/41 acetonide/[id number]( [facility] [id number][facility] 12/27/2017 Drug ketorolac Swelling SV Crystal Allergy/41 tromethamine/[id number] [facility] [id number][facility] 12/27/2017 Drug Penicillins/[id number] Rash SV Crystal Allergy/41 6([facility]NORM) [facility] [facility] [id number]([facility]) Repository 12/27/2017 Drug meloxicam/[id number]( Swelling SV [place] Allergy/41 RXNORM) [facility] [id number]( Hospital OMED [facility]) Repository ENCOUNTERS ENCOUNTERS ADMIT/DISCHARGE ACCOUNT NUMBER ADMITTING ENCOUNTER LOCATION SOURCE CLASS 05/07/2018 [id number] Ambulatory [facility] ding:PT Repository 04/18/2018/04/20/20 [id number] Eric, Inpatient [place] 18 [facility] ding:UR1Ocbh Repository : [id number]: 1 04/02/2018 [id number] Ambulatory [facility]: [facility] Repository 02/20/2018 [id number] Ambulatory Building:[facility] Repository 01/09/2018 [id number] Ambulatory Building:[facility] Repository 01/09/2018 [id number] Ambulatory Building:[facility] Repository 01/09/2018 [id number] Ambulatory Building:[facility] Repository 12/27/2017 [id number] Ambulatory [facility] ding:OMD Repository 12/27/2017 [id number] Ambulatory BMSBuilding: [place] BMS.CF.[facility] Repository 12/27/2017 [id number] Ambulatory [facility] ding:MTLAB Repository 12/22/2017/12/23/19 [id number] Ambulatory [address] ding:PT Repository 11/17/2017 [id number] Ambulatory [facility] ding:HPRAD Repository 09/19/2017 [id number] Ambulatory [facility] ding:PSN Repository 08/28/2017/08/29/19 [id number] Ambulatory BMSBuilding: [place] 18 [facility] Repository 08/21/2017/08/22/19 [id number] Ambulatory BMSBuilding: [place] 18 [facility] Repository 08/14/2017/08/16/19 [id number] Emergency [address] ding:ED Repository 07/04/2017 [id number] Ambulatory Building:[facility] Repository 06/19/2017 [id number] Ambulatory BMSBuilding: [place] BMS.WMO [facility] Repository 06/07/2017/06/07/19 [id number] Ambulatory [place] 18 [facility] ding:PT Repository PAYERS PAYERS ENCOUNTER GUARANTOR PAYER SUBSCRIBER SOURCE 05/07/2018 MALVIN Ragsdale Primary MALVIN Rojas [id number] Insurance:CORESOURCEP KAUFFMANDOB: [facility] SCHELLIN olicy Number: [id number] [id number] Repository 81893Uds: (330) Date:8943-99-63[phone] (HP) [address] [place] [address]CV: 05/07/2018 Secondary NOT GIVENUNK [place] Insurance:SELF PAY [facility] Number: Effective Repository Date:2018-04-03 04/18/2018 MALVIN Ragsdale Primary MALVIN Rojas [id number] Insurance:CORESOURCEP KAUFFMANDOB: [facility] SCHELLIN olicy Number: [id number], [place] [id number] Repository [address]24[address]Hkn: (330) Date:2833-87-10Hj [phone] (HP) [address] [place] [address]TP: 04/18/2018 Secondary NOT GIVENUNK [place] Insurance:SELF PAY [facility] Number: Effective Repository Date:2018-02-27 04/02/2018 MALVIN D Primary MALVIN Rojas [id number] Insurance:CORESOURCEP KAUFFMANDOB: [facility] SCHELLIN olicy Number: [id number], [place] [id number] Repository [address]30[address]Usj: (330) Date:9627-32-84Om [phone] (HP) [address] [address]OH: 04/02/2018 Secondary NOT GIVENUNK [place] Insurance:SELF PAY [facility] Number: Effective Repository Date:2018-04-02 02/20/2018 MALVIN Ragsdale Primary Insurance:[facility] HORTENCIAUFFMANDOB: [facility] KAUFFMANDOB: [place] ADVANTAGEPolic [id number] [facility] SCHELLIN Number: 7 [place], [place] [id number], [place] Repository [address]Mul: (330) Date:1150-02-92Byko [phone] (HP) Name:MANAGED CARE 01/09/2018 MALVIN Ragsdale Primary Insurance:[facility] KAUFFMANDOB: [place] ADVANTAGEPolic [id number] [facility] Medical SCHELLIN Number: 7 [place], [place] [id number], [place] Repository [address]Rtu: (330) Date:7811-56-94Bglj [phone] () Name:MANAGED CARE 01/09/2018 MALVIN Ragsdale Primary [facility]OSPITALOB: [place] [facility] [id number] [facility] Medical SCHELLIN Number: 7 [place], [place] [id number], [place] Repository [address]Uix: (330) Date:6360-02-00Dhhy 19712 [phone] (HP) Name:MANAGED CARE 01/09/2018 MALVIN Ragsdale Primary Insurance:[facility]: [facility]OSPITALUFFMANDOB: [place] ADVANTAGEPolic [id number] [facility] SCHELLIN Number: 7 [place], [place] [id number], [place] Repository [address]Cbu: (330) Date:2471-44-68Oefq 96194 [phone] (HP) Name:MANAGED CARE 12/27/2017 MALVIN Ragsdale Primary MALVIN Ragsdale [place] [id number] Insurance:[facility]PITALOB: [facility] Number: [id number], [place] [id number] Repository [address]Kzu: (330) Date:0647-34-02Ti [phone] (HP) [address] [address]KE: 12/27/2017 Secondary NOT GIVENUNK [place] Insurance:SELF PAY [facility] Number: Effective Repository Date:2016-08-10 12/27/2017 MALVIN D Primary MALVIN D [place] [id number] Insurance:CORESOURCEP KAUFFMANDOB: Community SCHE[place]IN olicy Number: [id number], [place] [id number] Repository 114[address]Qdo: (330) Date:8889-42-83Xx [phone] (HP) [address] [address]EQ: 12/27/2017 Secondary NOT GIVENUNK [place] Insurance:SELF PAY [facility] Number: Effective Repository Date:2017-12-27 12/27/2017 MALVIN D Primary MALVIN D [place] [id number] Insurance:CORESOURCEP KAUFFMANDOB: Community [place] olicy Number: [id number], [place] [id number] Repository [address]Zma: (330) Date:6108-97-63Aj [phone] (HP) [address] [address]YO: 12/27/2017 Secondary NOT GIVENUNK [place] Insurance:SELF PAY [facility] Number: Effective Repository Date:2017-12-27 12/22/2017 MALVIN D Primary MALVIN D [place] [id number] Insurance:CORESOURCEP KAUFFMANDOB: Community SCHELLIN olicy Number: [id number], [place] [id number] Repository [address]Idz: (330) Date:8166-31-45Nb [phone] (HP) [address] [address]HW: 12/22/2017 Secondary NOT GIVENUNK [place] Insurance:SELF PAY [facility] Number: Effective Repository Date:2017-11-21 11/17/2017 MALVIN D Primary MALVIN Rojas [id number] Insurance:CORESOURCEP KAUFFMANDOB: Community ANDRESLLROSITA ko Number: [id number], [place] [id number] Repository [address]Isi: (330) Date:6689-56-11Dq [phone] (HP) [address] [address]RN: 11/17/2017 Secondary NOT GIVENUNK [place] Insurance:SELF PAY [facility] Number: Effective Repository Date:2017-11-17 09/19/2017 MALVIN D Primary MALVIN Rojas [id number] Insurance:CORESOURCEP KAUFFMANDOB: [facility] SCHELLIN stefani Number: [id number], [place] [id number] Repository [address]Mbl: Date:1614-93-70Ir [address] [phone] [address] () [address]YB: 09/19/2017 Secondary NOT GIVENUNK [place] Insurance:SELF PAY [facility] Number: Effective Repository Date:2017-09-13 08/28/2017 MALVIN Ragsdale Primary MALVIN Ragsdale [place] [id number] Insurance:CORESOURCEP KAUFFMANDOB: [facility] ANDRESLLROSITA ko Number: [id number], [place] [id number] Repository [address]Iol: Date:0605-55-88St [address] [phone] [address] () [address]OA: 08/28/2017 Secondary NOT GIVENUNK [place] Insurance:SELF PAY [facility] Number: Effective Repository Date:2017-08-28 08/21/2017 MALVIN D Primary MALVIN Rojas [id number] Insurance:CORESOURCEP KAUFFMANDOB: [facility] SCHELLIN jeffic Number: [id number], [place] [id number] Repository [address]Duj: Date:6382-52-65Pb [address] [phone] 1470[address] Mason (HP) [address]YJ: 08/21/2017 Secondary NOT GIVENUNK [place] Insurance:SELF PAY [facility] Number: Effective Repository Date:2017-08-15 08/14/2017 Malvin D Primary Malvin Rojas [id number] Insurance:CORESOURCEP KauffmanDOB: [facility] Schellin olicy Number: [id number], [place] [id number] Repository [address]Uzt: Date:8402-72-88Rv [address] [phone] 0550[address] () [address]QR: 08/14/2017 Secondary NOT GIVENUNK [place] Insurance:SELF PAY [facility] Number: Effective Repository Date:2017-08-14 07/04/2017 MALVIN D Primary Insurance:[facility] KAUFFMANDOB: [facility] KAUFFMANDOB: [place] [id number] [facility] [id number] [facility] Number: 7 [place], [place] [id number] [place] Repository [address]Uns: (684) Date:8232-68-61Uuxt [phone] () Name:MANAGED CARE 06/19/2017 Malvin D Primary Malvin Ragsdale [place] [id number] Insurance:CORESOURCEP KauffmanDOB: [facility] Schellin olicy Number: [id number], [place] [id number] Repository [address]Mof: Date:2047-59-06Cl [address] [phone] 8820[address] () [address]ES: 06/19/2017 Secondary NOT GIVENUNK [place] Insurance:SELF PAY [facility] Number: Effective Repository Date:2017-06-19 06/07/2017 Malvin D Primary Malvin Rojas [id number] Insurance:CORESOURCEP [facility]auffmanDOB: [facility] aliza Number: [id number], [place] [id number] Repository [address]Mvh: Date:4127-67-53Kd [address] [phone] 78[address] (HP) [address]YN: 06/07/2017 Secondary NOT GIVENUNK [place] Insurance:SELF PAY [facility] Number: Effective Repository Date:2017-01-18
== END 2018-04-20 16:21 | disposition home or self-care (01) | DRG 470 ==
LOC: ACINP 08:53 → MS3 10:33
PROVIDERS: Admitting Provider Specialist; Family Provider Family Medicine; PCP Family Medicine; Referring Provider Specialist; Visit Provider Specialist
PROC: 0SRB04A Replacement of Left Hip Joint with Ceramic on Polyethylene Synthetic Substitute, Uncemented, Open Approach (ICD-10-PCS; CPT 27284; principal; 2018-04-18 11:00)
DX: M16.12 Unilateral primary osteoarthritis, left hip (principal); D68.2 Hereditary deficiency of other clotting factors; Z86.711 Personal history of pulmonary embolism; I10 Essential (primary) hypertension; Z86.718 Personal history of other venous thrombosis and embolism; Z79.01 Long term (current) use of anticoagulants; D50.9 Iron deficiency anemia, unspecified
CPT/HCPCS: 36415; 73501; 73502; 76000; 80048; 85014; 85018; 85025; 85027; 87081; 93005; 97110; 97161; 97165; 97530; C1776; J7120; A4216; J2405

== ENCOUNTER 2018-06-06 07:00 | Outpatient (RCR) | payer OTHER, SELFPAY ==
[2018-04-18 13:57] VITALS: BMI 27.1
--- NOTE | 2018-04-23 11:06 | HP.PTEVAL ---
Patient's Visit Information MALVIN ROBLERO is a 62 year old M referred to Physical Therapy by FRANCISCO Lyons with a diagnosis of L KEYA. Date of Evaluation: 04/23/18 Physical Therapist: Dave Oliver PT, - Visit Plan Frequency: 2-3x /Week Duration: 4-6 Weeks Plan: L LE stretching and strengthening, balance and proprio, core strengthening, gait training, nustep, and HEP - Subjective Findings: DOS: 04/18/18. Pt reports he had a L KEYA performed. Pt had an anterior approach performed. Pt notes he had a difficult sergery as he lost a lot of blood during that procedure. Pt reports he also developed a large hematoma in his L thigh which as resulted in increased pain. Pt notes he has been very dizzy and light headed when he attempts to stand up. Pt denies any L LE tingling or numbness. Pt reports occasional sleep difficulty secondary to pain. Pt rates his pain at 5/10 currently - Pain L hip Pain Intensity (Out of 10): 5 - Objective Neuro: B LE sensation is WNL to light touch. MMT: L LE is grossly 2/5 and painful with testing. R LE 5/5 throughout. ROM: L hip is limited by pain. R hip is WNL. Gait: Unable to assess today secondary to pt becoming dizzy secondary to pain meds - Goals Goal 1:: Decrease L hip pain x 50% to aid with sleep Goal Time Frame: 4-6 Weeks Goal 2:: Increase L hip strength x 1 grade to aid with RTW Goal Time Frame: 4-6 Weeks Goal 3:: Pt will be able to ambulate greater than 600 feet to aid with community ambulation Goal Time Frame: 4-6 Weeks Goal 4:: I with HEP Goal Time Frame: 4-6 Weeks - Rehabilitation Potential Physical Therapy Diagnosis: L hip pain, weakness, and limited ability to ambulate secondary to L KEYA Rehabilitation Potential: Good - Anticipated Interventions Patient/Client Instruction: Educate patient on: Condition, Plan of Care For the Purpose of:: To improve self management Therapeutic Exercise to Include: Strength training, Endurance training, Balance training, Gait and locomotor training, Dynamic Lumbar Stabilization For the Purpose of:: To decrease pain, To increase ROM, To improve muscle performance and motor function Cryotherapy (ice pack, ice massage): Yes For the Purpose of:: To decrease pain Thank you for the opportunity to evaluate your patient. For Medicare and Medicare HMO plans, please review the plan of care and approve it. It will need to be FAXED BACK to us at [phone] for Medicare purposes. For Medicare only, by signing this I certify the plan of care. Please let me know if there are questions or concerns regarding this plan of care. Physician Signature: Date:
--- NOTE | 2018-06-06 07:41 | HP.PTDCSUM ---
HP - PT D/C Summary It has been my pleasure to treat MALVIN ROBLERO under orders from FRANCISCO Lyons, for the diagnosis of L KEYA for a total of 12 visit(s). Discharge Date: Please see the following information for a summary of their discharge status. - Subjective Subjective: Pt is ready for discharge this date - Pain L hip Pain Intensity (Out of 10): 0 - Objective Objective/Function: 0/10 pain this date. L hip MMT is 5/5 with exception to L hip abd= 4/5. Pt is able to ambulate greater than 700 feet without difficulty. I with HEP. Rx goals achieved - Goals Goal 1:: Decrease L hip pain x 50% to aid with sleep Goal Progress: Goal Met Goal 2:: Increase L hip strength x 1 grade to aid with RTW Goal Progress: Goal Met Goal 3:: Pt will be able to ambulate greater than 600 feet to aid with community ambulation Goal Progress: Goal Met Goal 4:: I with HEP Goal Progress: Goal Met - Plan Plan: Discharge - D/C Information If there are questions or concerns regarding this patient's physical therapy, please feel free to call me at [phone]. Thank you for the referral of this patient. Sincerely, Dave Oliver, PT, ATC
== END 2018-06-06 19:00 | disposition home or self-care (01) ==
LOC: PT 07:00
PROVIDERS: Family Provider Family Medicine; PCP Family Medicine; Visit Provider Physician Assistant Surgical
DX: M16.12 Unilateral primary osteoarthritis, left hip (principal)
CPT/HCPCS: 97110; 97162; 97530

== ENCOUNTER → 2020-03-16 09:02 | Outpatient (CLI) | payer OTHER, SELFPAY ==
[2020-01-22 14:35] VITALS: BMI 26.8
--- NOTE | 2020-03-16 09:05 | RAD_ITS ---
STUDY: X-RAY - RIGHT HAND, ATTENTION FIRST FINGER REASON FOR EXAM: Male, 64 years old. Pain in the metacarpophalangeal joint. No known injury. TECHNIQUE: 3 view(s) of the finger were obtained. COMPARISON: None. FINDINGS: There is marked arthrosis of the carpometacarpal articulation with a question of mild subluxation. Normal metacarpal. Minimal arthrosis of the metacarpophalangeal joint. Normal proximal phalanx. Normal distal phalanx. Normal interphalangeal joint. Normal soft tissues. RAD/Finger(s) Min 2 Views IMPRESSION: 1. Minimal arthrosis of the first metacarpophalangeal joint. 2. 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 Electronically Signed: Allan Madrigal DO at 23:32 EDT Tel [phone], Service support ,
== END ==
PROVIDERS: PCP Family Medicine; Referring Provider Family Medicine; Visit Provider Family Medicine
DX: M79.646 Pain in unspecified finger(s) (principal)
CPT/HCPCS: 73140

== ENCOUNTER → 2020-03-17 07:05 | Outpatient (CLI) | payer OTHER, SELFPAY ==
[2020-01-22 14:35] VITALS: BMI 26.8
[2020-03-17 10:16] LABS: Cholesterol 165 mg/dL (200); High Density Lipoprotein 47 mg/dL; PSA,Total - Annual Screen 2.43 ng/mL (0.00-4.00); Triglycerides 143 mg/dL; Very Low Density Lipoprotein 29 mg/dL (5-40)
== END ==
PROVIDERS: PCP Family Medicine; Referring Provider Family Medicine; Visit Provider Family Medicine
DX: Z00.00 Encounter for general adult medical examination without abnormal findings (principal); I10 Essential (primary) hypertension
CPT/HCPCS: 36415; 80061; 84153; G0103

== ENCOUNTER 2020-07-17 07:00 | Outpatient (RCR) | payer OTHER, SELFPAY ==
[2020-01-22 14:35] VITALS: BMI 26.8
--- NOTE | 2020-03-13 08:11 | HP.PTEVAL ---
Patient's Visit Information MALVIN ROBLERO is a 64 year old M referred to Physical Therapy by ELAINE ZHOU with a diagnosis of L rot cuff repair 02/24/20. Date of Evaluation: 03/13/20 Physical Therapist: Dave Oliver PT, ATC - Visit Plan Frequency: 2-3x /Week Duration: 2-4 Months Plan: Follow protocal for medium rot cuff repair with biceps tenodesis. CP for pain - Subjective DOS: 02/24/20. Pt had a L shoulder rotator cuff repair with a biceps tenodesis and SAD. Pt reports he is doing much better now. Pt reports he has been doing his HEP while at home. Pt reports occasional sleep difficulty secondary to being uncomfortable. Pt reports he is not taking pain meds at this time. Pt reports his L pinky finger and half of ring finger are tingly at this time, no other L UE tingling or numbness. Pt is R hand dominant. Pt is still working for the [employer], and plans to RTW on Monday03/16/20 where he will only be completing paper work at the time. 0/10 pain at rest, 8/10 at worst (happens sometimes while he is showering) - Pain L shoulder Pain Intensity (Out of 10): 0 Pain Intensity Range: 8 - Objective Neuro: B UE sensation is WNL to light touch. R biceps reflex= 2/3. Observation: Incisions are healing well. No signs of infection. ROM: R shoulder AROM flex= 170, abd= 140, ER= 50, IR WNL; L shoulder PROM flex= 40, abd= 70, ER= 30, IR moderately limited. MMT: R shoulder is grossly 5/5 throughout. L shoulder is 2/5 - Goals Goal 1:: Decrease L shoulder pain x 50% to aid with sleep Goal Time Frame: 6-8 Weeks Goal 2:: Increase L shoulder flex and abd ROM x 50 degrees to aid with overhead activity Goal Time Frame: 6-8 Weeks Goal 3:: Increase L shoulder strength x 2 grades to aid with RTW without limitation Goal Time Frame: 6-8 Weeks Goal 4:: I with HEP Goal Time Frame: 6-8 Weeks - Rehabilitation Potential Physical Therapy Diagnosis: L shoulder pain, weakness, and limited ROM secondary to L rotator cuff repair Rehabilitation Potential: Good - Anticipated Interventions Patient/Client Instruction: Educate patient on: Condition, Plan of Care For the Purpose of:: To improve self management Therapeutic Exercise to Include: Strength training, Endurance training, Postural training, Flexibilty training, Passive ROM, Active ROM, Scapular Strength/Stabilization For the Purpose of:: To decrease pain, To increase ROM, To improve muscle performance and motor function Cryotherapy (ice pack, ice massage): Yes For the Purpose of:: To decrease pain Thank you for the opportunity to evaluate your patient. For Medicare and Medicare HMO plans, please review the plan of care and approve it. It will need to be FAXED BACK to us at [phone] for Medicare purposes. For Medicare only, by signing this I certify the plan of care. Please let me know if there are questions or concerns regarding this plan of care. Physician Signature: Date:
--- NOTE | 2020-05-20 07:31 | HP.PTREVAL_ITS ---
ELAINE ZHOU, It has been my pleasure to treat MALVIN ROBLERO over the last 25 visits for L rot cuff repair 02/24/20. Please see the progress note below for an update on the physical therapy plan of care! Subjective: Pt reports after seeing the doctor on 05/12, he was ordered to continue with PT 2 times per week to focus on strengthening. Pt has order in hand. Pt reports no pain this date. Objective/Function: L shoulder pain ranges from 0-3/10. L shoulder ROM: flex= 150, abd= 130, ER= 50, IR WNL. L shoulder MMT: ER and flex= 3+/5, abd and IR 4- /5 in available ROM. Pt is progressing well toward Rx goals, but still lacks ROM and functional strength at this time Plan Plan: Cont with PT 2 times per week to focus on ROM and strengthening. Goals Goal 1:: Decrease L shoulder pain x 50% to aid with sleep Goal Time Frame: 6-8 Weeks Goal Progress: Goal Met Goal 2:: Increase L shoulder flex and abd ROM x 50 degrees to aid with overhead activity Goal Time Frame: 6-8 Weeks Goal Progress: Progressing Goal 3:: Increase L shoulder strength x 2 grades to aid with RTW without limitation Goal Time Frame: 6-8 Weeks Goal Progress: Progressing Goal 4:: I with HEP Goal Time Frame: 6-8 Weeks Goal Progress: Progressing Anticipated Interventions Patient/Client Instruction: Educate patient on: Condition, Plan of Care For the Purpose of:: To improve self management Therapeutic Exercise to Include: Strength training, Endurance training, Postural training, Flexibilty training, Passive ROM, Active ROM, Scapular Strength/Stabilization For the Purpose of:: To decrease pain, To increase ROM, To improve muscle performance and motor function Cryotherapy (ice pack, ice massage): Yes For the Purpose of:: To decrease pain Please do not hesitate to contact me at [phone] by phone or if you have questions or concerns regarding this new plan of care! Sincerely, Dave Oliver, PT, ATC
--- NOTE | 2020-06-19 07:30 | HP.PTREVAL ---
ELAINE ZHOU, It has been my pleasure to treat MALVIN ROBLERO over the last 33 visits for L rot cuff repair 02/24/20. Please see the progress note below for an update on the physical therapy plan of care! Subjective: I am ready to continue with ex's I. No pain today Objective/Function: L shoulder pain 0/10. L shoulder ROM: flex= 140, abd= 135, ER= 55, IR WNL. L Shoulder MMT: 4/5 throughout. Pt is I with HEP. Rx goals achieved Plan Plan: Follow up or discharge in 1 month Goals Goal 1:: Decrease L shoulder pain x 50% to aid with sleep Goal Time Frame: 6-8 Weeks Goal Progress: Goal Met Goal 2:: Increase L shoulder flex and abd ROM x 50 degrees to aid with overhead activity Goal Time Frame: 6-8 Weeks Goal Progress: Progressing Goal 3:: Increase L shoulder strength x 2 grades to aid with RTW without limitation Goal Time Frame: 6-8 Weeks Goal Progress: Progressing Goal 4:: I with HEP Goal Time Frame: 6-8 Weeks Goal Progress: Goal Met Anticipated Interventions Patient/Client Instruction: Educate patient on: Condition, Plan of Care For the Purpose of:: To improve self management Therapeutic Exercise to Include: Strength training, Endurance training, Postural training, Flexibilty training, Passive ROM, Active ROM, Scapular Strength/Stabilization For the Purpose of:: To decrease pain, To increase ROM, To improve muscle performance and motor function Cryotherapy (ice pack, ice massage): Yes For the Purpose of:: To decrease pain Please do not hesitate to contact me at [phone] by phone or if you have questions or concerns regarding this new plan of care! Sincerely, Dave Oliver, PT, ATC
--- NOTE | 2020-07-17 07:30 | HP.PTREVAL ---
ELAINE ZHOU, It has been my pleasure to treat MALVIN ROBLERO over the last 34 visits for L rot cuff repair 02/24/20. Please see the progress note below for an update on the physical therapy plan of care! Subjective: I am definitely getting there Objective/Function: L shoulder pain ranges from 0-4/10. L shoulder MMT: abd and IR= 5/5, ER and flex= 4+/5. L shoulder ROM: flex= 145, abd= 135, ER= 50, IR WNL. Pt is I with HEP. Rx goals achieved Plan Plan: Discharge Goals Goal 1:: Decrease L shoulder pain x 50% to aid with sleep Goal Time Frame: 6-8 Weeks Goal Progress: Goal Met Goal 2:: Increase L shoulder flex and abd ROM x 50 degrees to aid with overhead activity Goal Time Frame: 6-8 Weeks Goal Progress: Goal Met Goal 3:: Increase L shoulder strength x 2 grades to aid with RTW without limitation Goal Time Frame: 6-8 Weeks Goal Progress: Goal Met Goal 4:: I with HEP Goal Time Frame: 6-8 Weeks Goal Progress: Goal Met Anticipated Interventions Patient/Client Instruction: Educate patient on: Condition, Plan of Care For the Purpose of:: To improve self management Therapeutic Exercise to Include: Strength training, Endurance training, Postural training, Flexibilty training, Passive ROM, Active ROM, Scapular Strength/Stabilization For the Purpose of:: To decrease pain, To increase ROM, To improve muscle performance and motor function Cryotherapy (ice pack, ice massage): Yes For the Purpose of:: To decrease pain Please do not hesitate to contact me at [phone] by phone or if you have questions or concerns regarding this new plan of care! Sincerely, Dave Oliver, PT, ATC
--- NOTE | 2020-08-20 10:59 | HP.PTDCSUM ---
It has been my pleasure to treat MALVIN ROBLERO referred by ELAINE ZHOU, with the diagnosis of L rot cuff repair 02/24/20 for a total of 34 visit(s). Discharge Date: Please see the following information for a summary of their discharge status. Subjective: I am definitely getting there L shoulder Pain Intensity (Out of 10): 0 % Improvement: 80 Objective/Function: L shoulder pain ranges from 0-4/10. L shoulder MMT: abd and IR= 5/5, ER and flex= 4+/5. L shoulder ROM: flex= 145, abd= 135, ER= 50, IR WNL. Pt is I with HEP. Rx goals achieved Goal 1:: Decrease L shoulder pain x 50% to aid with sleep Goal Progress: Goal Met Goal 2:: Increase L shoulder flex and abd ROM x 50 degrees to aid with overhead activity Goal Progress: Goal Met Goal 3:: Increase L shoulder strength x 2 grades to aid with RTW without limitation Goal Progress: Goal Met Goal 4:: I with HEP Goal Progress: Goal Met Plan: Discharge If there are questions or concerns regarding this patient's physical therapy, please feel free to call me at [phone]. Thank you for the referral of this patient. Sincerely, Dave Oliver, PT, ATC
== END 2020-07-17 19:00 | disposition home or self-care (01) ==
LOC: PT 07:00
PROVIDERS: PCP Family Medicine
DX: Z47.89 Encounter for other orthopedic aftercare (principal)
CPT/HCPCS: 97110; 97140; 97161; 97164

== ENCOUNTER → 2020-09-17 07:40 | Outpatient (CLI) | payer OTHER, SELFPAY ==
[2020-01-22 14:35] VITALS: BMI 26.8
[2020-09-17 10:05] LABS: Anion Gap 6 (5-15); BUN 27 mg/dL (7-18); Calcium,Total 8.7 mg/dL (8.5-10.1); Chloride 108 mmol/L (98-107); Cholesterol 185 mg/dL (200); Creatinine, Serum 1.23 mg/dL (0.70-1.30); EST Glomerular Filtration Rate 63 mL/min (>60); Est Glom Filt Rate - Afr Amer 76 mL/min (>60); Glucose 96 mg/dL (74-106); High Density Lipoprotein 58 mg/dL; Potassium 3.9 mmol/L (3.5-5.1); Sodium Level 140 mmol/L (136-145); Triglycerides 81 mg/dL; Very Low Density Lipoprotein 16 mg/dL (5-40)
== END ==
PROVIDERS: PCP Family Medicine; Referring Provider Family Medicine; Visit Provider Family Medicine
DX: I10 Essential (primary) hypertension (principal)
CPT/HCPCS: 36415; 80048; 80061

== ENCOUNTER 2020-10-27 07:41 | Observation (INO) | payer OTHER, SELFPAY ==
[2020-01-22 14:35] VITALS: BMI 26.8
[2020-10-27] VITALS (10 sets, daily range): BP systolic 116–134; BP diastolic 74–94; PULSE 49–85; RESP 15–18; TEMP 36.6–36.8; O2SAT 95–99; BMI 25.7; BMI 26.7
--- NOTE | 2020-10-27 07:58 | EKG12_ITS ---
Test Reason : [facility] Blood Pressure : / mmHG Vent. Rate : 055 BPM Atrial Rate : 055 BPM P-R Int : 170 ms QRS Dur : 100 ms QT Int : 412 ms P-R-T Axes : 044 029 030 degrees QTc Int : 394 ms Sinus bradycardia Possible Left atrial enlargement Borderline ECG Confirmed by MIKE CHI, MICHELLE ([id number]), website/blog editor ANGEL NOLAND ([id number]) on 10/30/2020 8:17:43 AM Referred By: VERNON Confirmed By:MICHELLE MCKEON MD
--- NOTE | 2020-10-27 07:58 | RAD_ITS ---
STUDY: X-RAY CHEST REASON FOR EXAM: Male, 65 years old. Confusion TECHNIQUE: Single AP portable view of the chest. COMPARISON: Comparison is made with prior study dated 04/16/2015. FINDINGS: EKG electrodes are seen. The lungs are clear and expanded. There is no demonstrated pleural abnormality. Normal size heart. Normal mediastinum and zain. There is prominence of the pulmonary hilar arteries without peripheral pulmonary vascular congestion, suggesting pulmonary hypertension. Normal visualized aortic arch and descending thoracic aorta. There are degenerative changes of the visualized thoracic spine. Normal visualized ribs, clavicles, and shoulders. There is no demonstrated abnormality of the visualized soft tissue structures of the upper abdomen. RAD/Chest 1 View (Portable) IMPRESSION: No acute abnormality is present. Electronically Signed: João Heard MD at 8:41 EDT , Service support ,
--- NOTE | 2020-10-27 07:58 | CT_ITS ---
STUDY: CT BRAIN WITHOUT CONTRAST REASON FOR EXAM: Male, 65 years old. Confusion RADIATION DOSAGE (If Supplied By Facility): CTDIvol = ( 44.99 ) mGy, DLP = ( 846.73 ) mGycm TECHNIQUE: Transaxial CT imaging of the brain was performed without administration of intravenous contrast material. Individualized dose optimization techniques were used for this CT. COMPARISON: Comparison is made with prior study dated 08/15/2012. FINDINGS: Normal soft tissue structures. Normal calvarium. Normal size ventricles and extra-axial spaces for the patient''s age. Normal white matter tracts of the cerebral hemispheres. Stable old lacunar in the left basal ganglion. Normal brainstem. Normal cerebellum. There is no intracranial hemorrhage. There are no findings of an acute ischemic infarction. Atherosclerotic calcification of the cavernous portions of the internal carotid arteries bilaterally. Mucosal thickening along the lateral wall of the left maxillary sinus. 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 Mucosal thickening of the lateral wall of the left maxillary sinus. Electronically Signed: João Heard MD at 8:45 EDT , Service support ,
--- NOTE | 2020-10-27 07:59 | EDS_ITS ---
HPI History of Present Illness Chief Complaint: Mental Status Change Informant: patient and spouse/S.O. Narrative Narrative: Patient is a 65-year-old male with history of factor II clotting disorder, PEs, hypertension, GERD and iron deficiency anemia presenting with confusion. Patient woke up around 5 AM which is normal for him. He spoke with his until about 530 and seemed normal. He went to do his regular morning exercise of stretching, walking on the treadmill and sit ups. When he came upstairs he seemed confused. He does not recall walking on the treadmill. He kept asking his the time and did not recall that they had made recent renovations to their bathroom. This is very atypical for him per his . They brought to the emergency room for further evaluation. Patient denies any complaints but does states he feels off. He is on Xarelto. Denies any headache. 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 [facility] Medical History (Updated 10/27/20 @ 10:[address] Francisca Rendon, ) Factor II deficiency Hypertension Home Medications mometasone [Nasonex] 1 spray NASAL DAILY PRN 10/04/13 [History Last Taken 04/15/15] omeprazole 1 tab PO DAILY 10/04/13 [History Last Taken 04/18/18 06:00] losartan 50 mg PO QODAY 04/16/15 [History Last Taken 10/28/15] acetaminophen 1,000 mg PO Q8 #100 tab 04/20/18 [Rx Last Taken Unknown] metoprolol tartrate 25 mg PO DAILY 01/24/19 [History Last Taken Unknown] rivaroxaban 10 mg PO DAILY #90 tab 01/22/20 [Rx Last Taken Unknown] Allergy/AdvReac Type Severity Reaction Status Date / Time cyclobenzaprine HCl Allergy Severe Swelling Verified 10/27/20 07:43 [From Flexeril] ketorolac tromethamine Allergy Severe Swelling Verified 10/27/20 07:43 [From Toradol] meloxicam Allergy Severe Swelling Verified 10/27/20 07:43 orphenadrine citrate Allergy Severe Swelling Verified 10/27/20 07:43 [From Norflex] Penicillins Allergy Severe Rash Verified 10/27/20 07:43 triamcinolone acetonide Allergy Severe Swelling Verified 10/27/20 07:43 [From Kenalog] Family History Father Arthritis Hypertension Surgical History H/O sinus surgery History of left hip replacement History of repair of anterior cruciate ligament of left knee History of repair of anterior cruciate ligament of right knee History of repair of rotator cuff History of shoulder surgery Hx of tonsillectomy Social History Smoking Status: Never smoker ROS ROS ED Constitutional Constitutional ED: Denies chills or fever(s) Eyes Eyes: Denies blurry vision or change in vision ENT ENT ED: Denies change in voice or vertigo Cardiovascular Cardiovascular: Denies chest pain or hypertension Respiratory/Chest Respiratory/Chest: Denies chest tightness, shortness of breath at rest or other Gastrointestinal Gastrointestinal: Denies nausea or vomiting Genitourinary Genitourinary ED: Denies dysuria or hematuria Musculoskeletal Musculoskeletal: Denies abnormal gait, difficulty walking or muscle weakness Integumentary Denies new lesions or rash Neurologic Neurologic: Reports other Details: forgetful ; Denies headache(s), paresthesias or weakness Psychiatric Psychiatric: Denies anxiety, confusion or depression EXAM Physical Exam Const Vital Signs: 10/27/20 07:43 10/27/20 09:54 Temperature 97.8 F Temperature Source Temporal Pulse Rate 66 85 Respiratory Rate 16 15 Blood Pressure 128/89 H 134/88 H Blood Pressure Mean 102 103 Pulse Ox 96 96 Oxygen Delivery Method Room Air Room Air Positive well nourished and well developed General Appearance ED: active, cooperative, comfortable and well developed HEENT Reports normocephalic, TM's clear and moist mucous membranes atraumatic Nose: external nose normal Tympanic Membrane ED: Yes TM's clear Eyes PERRL and EOMs intact bilaterally Neck full ROM, No nuchal rigidity, supple, no meningeal signs and no JVD Chest Wall inspection of chest normal Resp normal respiratory effort, normal air movement and clear to auscultation bilaterally Cardio regular rate and regular rhythm GI normal to inspection, nondistended, normoactive bowel sounds Extremity normal to inspection, full ROM and normal capillary refill General Extremety ED: Negative for edema General Extremity: Negative for edema Neuro oriented x3 and no sensory deficits noted Neuro Narrative: NIH equals 0. Patient does have a hard time remembering when he does for a job and other basic things that the states he normally can recall right away however he is able to immediately name items and explain the situation. Sensorium / Orientation: alert Motor Exam: strength 5/5 throughout Psych mental status grossly normal and thought process normal Skin no rashes or lesions noted and no wounds MDM MDM MDM Narrative Medical decision making narrative: Patient value of acute onset of confusion. He is having difficulty recalling things he would normally know especially for short-term recall. Is no obvious signs of trauma. He has normal vital signs. He has a normal neurologic exam with an NIH of 0. Work-up is largely negative in the ER. He does have evidence of a prior lacunar infarct in the basal ganglion. His lab work is all at his baseline. Urine tox and alcohol are negative. Given the acuteness of his symptoms he will be admitted for further evaluation and for MRI. Patient and are agreeable with this plan of care. Patient is hemodynamically stable emergency room. Lab Data Labs: Laboratory Results - last 24 hr 10/27/20 10/27/20 10/27/20 08:15 08:15 08:15 WBC 4.6 RBC 5.51 Hgb 16.2 Hct 48.5 MCV 88.0 MCH 29.4 MCHC 33.4 RDW Std Deviation 41.1 RDW Coeff of Юлия 12.6 Plt Count 179 MPV 9.1 Immature Gran % (Auto) 0.900 Neut % (Auto) 63.8 Lymph % (Auto) 21.8 [place] % (Auto) 11.0 H Eos % (Auto) 1.9 Baso % (Auto) 0.6 Absolute Neuts (auto) 3.0 Absolute Lymphs (auto) 1.01 Nucleated RBC % 0 Sodium 142 Potassium 4.4 Chloride 109 H Carbon Dioxide 27.0 Anion Gap 6 BUN 24 H Creatinine 1.27 Estim Creat Clear Calc 60.94 Est GFR (MDRD) Af Amer 73 Est GFR (MDRD) Non-Af 60 BUN/Creatinine Ratio 18.9 Glucose 97 Calcium 8.6 Total Bilirubin 0.60 AST 23 ALT 24 Alkaline Phosphatase 80 Troponin I < 0.015 Total Protein 6.9 Albumin 3.7 Globulin 3.2 Albumin/Globulin Ratio 1.2 Urine Color Urine Clarity Urine pH Ur Specific [place] Urine Protein Urine Glucose (UA) Urine Ketones Urine Occult Blood Urine Nitrite Urine Bilirubin Urine Urobilinogen Ur Leukocyte Esterase Urine RBC Urine WBC Ur Squamous Epith Cells Urine Bacteria Urine Mucus Urine Opiates Screen Urine Methadone Screen Ur Barbiturates Screen Ur Phencyclidine Scrn Ur Amphetamines Screen U Methamphetamin-MDMA U Benzodiazepines Scrn Urine Cocaine Screen U Cannabinoids Screen Ur Drug Screen Comment Ethyl Alcohol < 3.0 10/27/20 10/27/20 09:18 09:18 WBC RBC Hgb Hct MCV MCH MCHC RDW Std Deviation RDW Coeff of [place] Plt Count MPV Immature Gran % (Auto) Neut % (Auto) Lymph % (Auto) [place] % (Auto) Eos % (Auto) Baso % (Auto) Absolute Neuts (auto) Absolute Lymphs (auto) Nucleated RBC % Sodium Potassium Chloride Carbon Dioxide Anion Gap BUN Creatinine Estim Creat Clear Calc Est GFR (MDRD) Af Amer Est GFR (MDRD) Non-Af BUN/Creatinine Ratio Glucose Calcium Total Bilirubin AST ALT Alkaline Phosphatase Troponin I Total Protein Albumin Globulin Albumin/Globulin Ratio Urine Color Yellow Urine Clarity Sl. Cloudy Urine pH 6.0 Ur Specific [place] 1.020 Urine Protein Negative Urine Glucose (UA) Normal Urine Ketones Negative Urine Occult Blood Negative Urine Nitrite Negative Urine Bilirubin Negative Urine Urobilinogen Normal Ur Leukocyte Esterase 25 H Urine RBC 0 SEEN Urine WBC 0-5 SEEN Ur Squamous Epith Cells 0 SEEN Urine Bacteria 0 SEEN Urine Mucus 0 SEEN Urine Opiates Screen NEGATIVE Urine Methadone Screen NEGATIVE Ur Barbiturates Screen NEGATIVE Ur Phencyclidine Scrn NEGATIVE Ur Amphetamines Screen NEGATIVE U Methamphetamin-MDMA NEGATIVE U Benzodiazepines Scrn NEGATIVE Urine Cocaine Screen NEGATIVE U Cannabinoids Screen NEGATIVE Ur Drug Screen Comment Ethyl Alcohol Radiography Chest X-Ray - ED: 1 View, Read by ED Physician and Read by Radiologist Diagnostic Testing: Radiology Impression Brain CT 10/27/20 07:58 IMPRESSION: 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 Mucosal thickening of the lateral wall of the left maxillary sinus. Electronically Signed: João Heard MD at 8:45 EDT , Service support , Chest X-Ray 10/27/20 07:58 IMPRESSION: No acute abnormality is present. Electronically Signed: João Heard MD at 8:41 EDT , Service support , Rhythm Strip Rhythm Strip: Sinus Rhythm Rate: 55 Ectopy: None EKG Initial EKG: Attestation: I personally reviewed and interpreted this EKG as follows: Interpretation: Sinus Rhythm Comments: Normal sinus rhythm at a rate of 55 Normal axis Normal intervals Possible left atrial enlargement T wave inversion in aVR and V1 No change compared to prior EKG on 04/02/2018 Treatment and Re-Evaluation Comments:: Work-up for acute ephalopathy/confusion largely negative. Patient will be admitted for further testing evaluation as he continues to have memory/recall issues in the ER. I suspect he needs an MRI. Patient is given aspirin in case this is a TIA picture. He is not a TPA candidate as he is on Xarelto Discharge Plan Triage Chief Complaint: Mental Status Change ED Provider: Francisca Rendon Dx/Rx/DC Orders Clinical Impression: Acute confusion Prescriptions: No Action omeprazole 40 MG capsule,delayed release(DR/EC) 1 tab PO DAILY RF: 0 mometasone [Nasonex] 1 SPRAY spray,non-aerosol 1 spray NASAL DAILY PRN (Reason: ALLERGY) RF: 0 losartan 50 MG tablet 50 mg PO QODAY RF: 0 metoprolol tartrate 25 MG tablet 25 mg PO DAILY RF: 0 rivaroxaban 10 MG tablet 10 mg PO DAILY Qty: 90 RF: 11 acetaminophen 500 MG tablet 1,000 mg PO Q8 Qty: 100 RF: 0 Primary Care Provider: Salinas Ford Referrals: Salinas Ford MD [Primary Care Provider] - Disposition Disposition: Acute Care Hospital [facility]
[2020-10-27 08:24] LABS: Absolute Lymphocyte Count 1.01 X10^3/uL (0.83-4.51); Basophil# 0.03 X10^3/uL; Basophil% 0.6 % (0-1); Eosinophil# 0.09 X10^3/uL; Eosinophils% 1.9 % (0-5); Hematocrit 48.5 % (40-54); Hemoglobin 16.2 g/dL (13.0-16.5); Lymphocyte # 1.01 X10^3/ul (0.83-4.51); Lymphocyte % 21.8 % (19-41); Mean Corp Hgb Conc 33.4 g/dL (32-36); Mean Corpuscular Hgb 29.4 pg (27.0-32.0); Mean Platelet Vol. 9.1 fl (6.2-12.0); Monocyte# 0.51 X10^3/uL; NRBC Flagged by Analyzer 0 % (0-5); Neutrophil # 2.95 X10^3/uL (2.7-7.7); Neutrophil % 63.8 % (47-70); Platelet Count 179 K/mm3 (150-450); RBC Distribution Width CV 12.6 % (11.6-14.6); RBC Distribution Width SD 41.1 fl (35.1-43.9); Red Blood Count 5.51 M/mm3 (4.6-6.2); White Blood Count 4.6 K/mm3 (4.4-11.0)
[2020-10-27 08:41] LABS: ALB/GLOB Ratio 1.2 RATIO (0.9-2.4); AST(SGOT) 23 U/L (15-37); Alanine Aminotransfer ALT/SGPT 24 U/L (16-61); Albumin, Serum 3.7 g/dL (3.2-5.0); Alkaline Phosphatase 80 U/L (45-117); Anion Gap 6 (5-15); BUN 24 mg/dL (7-18); BUN/Creat Ratio 18.9 RATIO (10-20); Calcium,Total 8.6 mg/dL (8.5-10.1); Chloride 109 mmol/L (98-107); Creatinine, Serum 1.27 mg/dL (0.70-1.30); EST Glomerular Filtration Rate 60 mL/min (>60); Est Glom Filt Rate - Afr Amer 73 mL/min (>60); Estimated Creatinine Clearance 60.94 ml/min; Globulin 3.2 g/dL (2.2-4.2); Glucose 97 mg/dL (74-106); Potassium 4.4 mmol/L (3.5-5.1); Protein, Total 6.9 g/dL (6.4-8.2); Sodium Level 142 mmol/L (136-145)
[2020-10-27 08:45] LABS: Alcohol, Blood (Medical)-Serum < 3.0 mg/dL
[2020-10-27 09:23] LABS: Bacteria 0 SEEN /hpf (None Seen); Mucous, Urine 0 SEEN /hpf (<or=2+); Red Blood Cells-Urine 0 SEEN /hpf (0-5); Squamous Epithelial Cells - UA 0 SEEN /hpf (0-5)
[2020-10-27 09:40] LABS: Color, Urine Yellow (Yellow); Glucose, Dipstick Normal (Normal); Ketone-Dipstick Negative (Negative); Leukocyte Esterase-Dipstick 25 /ul (Negative); Nitrite-Dipstick Negative (Negative); Occult Blood-Urine Negative /ul (Negative); Protein-Dipstick Negative (Negative); Urine Bilirubin Dipstick Negative (Negative); Urine Clarity Sl. Cloudy (Clear); Urine Urobilinogen Normal (Normal)
[2020-10-27 09:43] LABS: Amphetamine Urine VISTA NEGATIVE (<1000 ng/mL); Barbiturate Urine VISTA NEGATIVE (< 200 ng/mL); Benzodiazepine Urine VISTA NEGATIVE (< 200 ng/mL); Cocaine Urine VISTA NEGATIVE (< 300 ng/mL); Ecstacy Urine VISTA NEGATIVE (< 500 ng/mL); Methadone Urine VISTA NEGATIVE (< 300 ng/mL); PCP Urine VISTA NEGATIVE (< 25 ng/mL); THC Urine VISTA NEGATIVE (< 50 ng/mL); Vista UDS pH Range 5
[2020-10-27 09:50] LABS: White Blood Cells 0-5 SEEN /hpf (0-5)
--- NOTE | 2020-10-27 10:55 | PCM.HP.STD ---
HPI - General HPI Narrative MALVIN ROBLERO, is a 65 M who presents [facility] Medical History (Updated 10/27/20 @ 08:08 by Haley Carmen) Factor II deficiency Hypertension Home Medications mometasone [Nasonex] 1 spray NASAL DAILY PRN 10/04/13 [History Last Taken 04/15/15] omeprazole 1 tab PO DAILY 10/04/13 [History Last Taken 04/18/18 06:00] losartan 50 mg PO QODAY 04/16/15 [History Last Taken 10/28/15] acetaminophen 1,000 mg PO Q8 #100 tab 04/20/18 [Rx Last Taken Unknown] metoprolol tartrate 25 mg PO DAILY 01/24/19 [History Last Taken Unknown] rivaroxaban 10 mg PO DAILY #90 tab 01/22/20 [Rx Last Taken Unknown] Allergy/AdvReac Type Severity Reaction Status Date / Time cyclobenzaprine HCl Allergy Severe Swelling Verified 10/27/20 07:43 [From Flexeril] ketorolac tromethamine Allergy Severe Swelling Verified 10/27/20 07:43 [From Toradol] meloxicam Allergy Severe Swelling Verified 10/27/20 07:43 orphenadrine citrate Allergy Severe Swelling Verified 10/27/20 07:43 [From Norflex] Penicillins Allergy Severe Rash Verified 10/27/20 07:43 triamcinolone acetonide Allergy Severe Swelling Verified 10/27/20 07:43 [From Kenalog] Family History Father Arthritis Hypertension Surgical History H/O sinus surgery History of left hip replacement History of repair of anterior cruciate ligament of left knee History of repair of anterior cruciate ligament of right knee History of repair of rotator cuff History of shoulder surgery Hx of tonsillectomy Social History Smoking Status: Never smoker Vital Signs Vital Signs Vital Signs: 10/27/20 07:43 10/27/20 09:54 Temperature 97.8 F Temperature Source Temporal Pulse Rate 66 85 Respiratory Rate 16 15 Blood Pressure 128/89 H 134/88 H Blood Pressure Mean 102 103 Pulse Ox 96 96 Oxygen Delivery Method Room Air Room Air Weight Weight: 83.915 kg Body Mass Index (BMI) 25.7 Results Lab / Micro Data Result Diagrams: 10/27/20 08:15 10/27/20 08:15 Labs: Laboratory Results - last 24 hr 10/27/20 10/27/20 10/27/20 08:15 08:15 08:15 WBC 4.6 RBC 5.51 Hgb 16.2 Hct 48.5 MCV 88.0 MCH 29.4 MCHC 33.4 RDW Std Deviation 41.1 RDW Coeff of Юлия 12.6 Plt Count 179 MPV 9.1 Immature Gran % (Auto) 0.900 Neut % (Auto) 63.8 Lymph % (Auto) 21.8 [place] % (Auto) 11.0 H Eos % (Auto) 1.9 Baso % (Auto) 0.6 Absolute Neuts (auto) 3.0 Absolute Lymphs (auto) 1.01 Nucleated RBC % 0 Sodium 142 Potassium 4.4 Chloride 109 H Carbon Dioxide 27.0 Anion Gap 6 BUN 24 H Creatinine 1.27 Estim Creat Clear Calc 60.94 Est GFR (MDRD) Af Amer 73 Est GFR (MDRD) Non-Af 60 BUN/Creatinine Ratio 18.9 Glucose 97 Calcium 8.6 Total Bilirubin 0.60 AST 23 ALT 24 Alkaline Phosphatase 80 Troponin I < 0.015 Total Protein 6.9 Albumin 3.7 Globulin 3.2 Albumin/Globulin Ratio 1.2 Urine Color Urine Clarity Urine pH Ur Specific [place] Urine Protein Urine Glucose (UA) Urine Ketones Urine Occult Blood Urine Nitrite Urine Bilirubin Urine Urobilinogen Ur Leukocyte Esterase Urine RBC Urine WBC Ur Squamous Epith Cells Urine Bacteria Urine Mucus Urine Opiates Screen Urine Methadone Screen Ur Barbiturates Screen Ur Phencyclidine Scrn Ur Amphetamines Screen U Methamphetamin-MDMA U Benzodiazepines Scrn Urine Cocaine Screen U Cannabinoids Screen Ur Drug Screen Comment Ethyl Alcohol < 3.0 10/27/20 10/27/20 09:18 09:18 WBC RBC Hgb Hct MCV MCH MCHC RDW Std Deviation RDW Coeff of Юлия Plt Count MPV Immature Gran % (Auto) Neut % (Auto) Lymph % (Auto) [place] % (Auto) Eos % (Auto) Baso % (Auto) Absolute Neuts (auto) Absolute Lymphs (auto) Nucleated RBC % Sodium Potassium Chloride Carbon Dioxide Anion Gap BUN Creatinine Estim Creat Clear Calc Est GFR (MDRD) Af Amer Est GFR (MDRD) Non-Af BUN/Creatinine Ratio Glucose Calcium Total Bilirubin AST ALT Alkaline Phosphatase Troponin I Total Protein Albumin Globulin Albumin/Globulin Ratio Urine Color Yellow Urine Clarity Sl. Cloudy Urine pH 6.0 Ur Specific [place] 1.020 Urine Protein Negative Urine Glucose (UA) Normal Urine Ketones Negative Urine Occult Blood Negative Urine Nitrite Negative Urine Bilirubin Negative Urine Urobilinogen Normal Ur Leukocyte Esterase 25 H Urine RBC 0 SEEN Urine WBC 0-5 SEEN Ur Squamous Epith Cells 0 SEEN Urine Bacteria 0 SEEN Urine Mucus 0 SEEN Urine Opiates Screen NEGATIVE Urine Methadone Screen NEGATIVE Ur Barbiturates Screen NEGATIVE Ur Phencyclidine Scrn NEGATIVE Ur Amphetamines Screen NEGATIVE U Methamphetamin-MDMA NEGATIVE U Benzodiazepines Scrn NEGATIVE Urine Cocaine Screen NEGATIVE U Cannabinoids Screen NEGATIVE Ur Drug Screen Comment Ethyl Alcohol Radiology Impression Brain CT 10/27/20 07:58 IMPRESSION: 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 Mucosal thickening of the lateral wall of the left maxillary sinus. Electronically Signed: João Heard MD at 8:45 EDT , Service support , Chest X-Ray 10/27/20 07:58 IMPRESSION: No acute abnormality is present. Electronically Signed: João Heard MD at 8:41 EDT , Service support ,
[2020-10-27] MEDS: 0.9% Saline Lock 10 ML Syringe IV (12:19)
[2020-10-27] MEDS: 0.9% Normal Saline 1,000 ML 75 ML IV (12:19)
--- NOTE | 2020-10-27 12:28 | MRI_ITS ---
History: Neurodeficit, acute stroke suspected EXAMINATION: MRA Neck WO/W Contrast TECHNIQUE: Routine carotid MR angiogram protocol was performed. 3D reconstructions were reviewed. Nascet criteria using the distal ICAs for comparison were used for evaluation of stenoses. IV Contrast dosage and agent: 17ml IV Dotarem COMPARISON: MRA head and CT brain October 27, 2020 FINDINGS: AORTIC ARCH AND BRANCHES: No significant stenosis at the visualized portions. RIGHT CCA: No occlusion, significant stenosis or dissection. RIGHT ICA: No occlusion, significant stenosis or dissection. LEFT CCA: No occlusion, significant stenosis or dissection. LEFT ICA: No occlusion, significant stenosis or dissection. RIGHT VERTEBRAL ARTERY: No occlusion, significant stenosis or dissection. LEFT VERTEBRAL ARTERY: No occlusion, significant stenosis or dissection. No evidence of acute injury of the major arterial system of the neck. MRI/MRA Neck WITH and W/O Contrast IMPRESSION: Unremarkable MRA neck. at 1658 Reported and signed by: Tyrese Gavin MD Electronically Signed: Tyrese Gavin MD at 16:57 EDT Tel , Service support ,
--- NOTE | 2020-10-27 12:29 | ECHOD_ITS ---
Reason For Study: TIA/CVA Procedure This was a 2D Doppler, Color Flow transthoracic echocardiogram. Exam performed portable in patient room. Left Ventricle Normal LV size. Left ventricular systolic function is normal. The estimated ejection fraction is 60 %. Normal diastology for age. No regional wall motion abnormalities noted. Right Ventricle Normal RV size. Normal systolic function. Atria Normal left atrium. Normal right atrium. Mitral Valve Normal mitral valve. Trivial eccentric mitral valve insufficiency. Tricuspid Valve Normal tricuspid valve. Mild (1+) tricuspid valve insufficiency. Pulmonary artery systolic pressure is 28 mmHg. Aortic Valve Trisinus/trileaflet aortic valve. Pulmonic Valve Normal pulmonic valve. Great Vessels Normal aortic root. The pulmonary artery is normal size. Normal inferior vena cava. Pericardium/Pleural No pericardial effusion. MMode/2D Measurements & Calculations LVIDd: 4.8 cm IVSd: 1.2 cm Ao root diam: 3.3 cm LVIDs: 2.9 cm LVPWd: 1.0 cm RVDd: 3.2 cm FS: 39.2 % LAV(MOD-bp): 59.5 ml LVAd ap4: 26.2 cm2 SV(MOD-sp4): 51.8 ml LAV(MOD-bp) Indexed: 28.7 ml/m2 LVLd ap4: 7.6 cm LAV(MOD-sp2): 65.0 ml EDV(MOD-sp4): 75.5 ml LAV(MOD-sp4): 54.3 ml EDV(sp4-el): 75.9 ml LVAs ap4: 13.5 cm2 LVLs ap4: 6.5 cm ESV(MOD-sp4): 23.7 ml ESV(sp4-el): 23.7 ml EF(MOD-sp4): 68.6 % EF(sp4-el): 68.8 % SV(sp4-el): 52.2 ml LA A4 area: 20.1 cm2 LA dimension(2D): 4.7 cm RA A4 area: 21.0 cm2 Doppler Measurements & Calculations MV E max vamsi: 78.1 cm/sec Lat Peak E' Vamsi: 8.3 cm/sec Med Peak E' Vamsi: 9.4 cm/sec MV A max vamsi: 52.8 cm/sec E/E' lat: 9.5 E/E' med: 8.3 MV E/A: 1.5 Ao V2 max: 135.5 cm/sec LV V1 max: 104.9 cm/sec PA V2 max: 131.4 cm/sec Ao max P.3 mmHg LV V1 max P.4 mmHg Ao V2 mean: 88.6 cm/sec Ao mean P.6 mmHg Ao V2 VTI: 29.5 cm TR max vamsi: 247.8 cm/sec TR max P.6 mmHg ECHO/Echo Complete Interpretation Summary Normal LV size. Left ventricular systolic function is normal. The estimated ejection fraction is 60 %. Trivial eccentric mitral valve insufficiency. Pulmonary artery systolic pressure is 28 mmHg. Ordering Physician: Vilma Aponte Referring Physician: Salinas Ford Performed By: Rosalia Sanders RDCS, RVT
--- NOTE | 2020-10-27 12:30 | MRI_ITS ---
History: Neurodeficit, acute stroke suspected EXAMINATION: MRA Head W/O Contrast TECHNIQUE: Routine [place]/brain 3D time of flight MR angiogram protocol was performed without gadolinium. 3D reconstructions were reviewed. IV Contrast dosage and agent: None. COMPARISON: None FINDINGS: --Anterior circulation: ICAs: No significant stenosis at the intracranial/visualized segments. ACAs: No significant stenosis at the visualized segments. ACOM: Present. MCAs: No significant stenosis at the visualized segments. --Posterior circulation: PCOMs: Not present furnace reliner: No significant stenosis at the visualized segments. BASILAR ARTERY: No significant stenosis. VERTEBRAL ARTERIES: No significant stenosis at the intradural/visualized segments. No evidence of intracranial aneurysm or vascular malformation. MRI/MRA Head ONLY without Contrast IMPRESSION: Unremarkable MRA head. at 1643 Reported and signed by: Tyrese Gavin MD Electronically Signed: Tyrese Gavin MD at 16:42 EDT Tel , Service support ,
--- NOTE | 2020-10-27 13:55 | PCM.HP.STD ---
Documented by User: Carmen Kelly NP, COOK PRESSURE-C 10/27/20 14:03 HPI - General General Date of Admission: 10/27/20 Date of Service: 10/27/20 Chief Complaint: Transient memory loss HPI Narrative MALVIN ROBLERO, is a 65 M who presents to the emergency room due to transient memory loss. Patient states he typically wakes up at 5:30 AM and goes to the basement to work out. He states he remembers beginning his workout however does not remember completing his workout or going upstairs to talk with his . He states shortly after talking to his his memory slowly started to return however he still does not recall the period of time mid workout to going upstairs. His states she did a stroke assessment and had patient smile and lift his arms. She denies slurred speech, unilateral weakness or other neurologic deficits. Patient denies history of stroke. He denies further confusion or other neurologic or focal deficits. 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 [facility] Medical History Factor II deficiency Hypertension Home Medications mometasone [Nasonex] 1 spray NASAL DAILY PRN 10/04/13 [History Last Taken 04/15/15] omeprazole 1 tab PO DAILY 10/04/13 [History Last Taken 04/18/18 06:00] losartan 50 mg PO DAILY 04/16/15 [History Last Taken 10/28/15] metoprolol tartrate 25 mg PO DAILY 01/24/19 [History Last Taken Unknown] rivaroxaban 10 mg PO DAILY #90 tab 01/22/20 [Rx Last Taken Unknown] acetaminophen [Tylenol Extra Strength] 1,000 mg PO Q8H PRN 10/27/20 [History Last Taken Unknown] Allergy/AdvReac Type Severity Reaction Status Date / Time cyclobenzaprine HCl Allergy Severe Swelling Verified 10/27/20 07:43 [From Flexeril] ketorolac tromethamine Allergy Severe Swelling Verified 10/27/20 07:43 [From Toradol] meloxicam Allergy Severe Swelling Verified 10/27/20 07:43 orphenadrine citrate Allergy Severe Swelling Verified 10/27/20 07:43 [From Norflex] Penicillins Allergy Severe Rash Verified 10/27/20 07:43 triamcinolone acetonide Allergy Severe Swelling Verified 10/27/20 07:43 [From Kenalog] Family History (Updated 10/27/20 @ 13:58 by Carmen Kelly NP, COOK PRESSURE-C) Father Arthritis Hypertension Mother Hypertension Surgical History H/O sinus surgery History of left hip replacement History of repair of anterior cruciate ligament of left knee History of repair of anterior cruciate ligament of right knee History of repair of rotator cuff History of shoulder surgery Hx of tonsillectomy Social History (Updated 10/27/20 @ 13:59 by Carmen Kelly NP, COOK PRESSURE-C) household members: spouse Smoking Status: Never smoker alcohol intake: never substance use type: does not use ROS ROS Narrative ROS negative with the exception of transient memory loss. Constitutional Constitutional: Denies change in weight, chills, fatigue, fever(s) or weakness Cardiovascular Cardiovascular: Denies chest pain, edema, lightheadedness, palpitations or syncope Respiratory/Chest Respiratory/Chest: Denies cough, dyspnea, productive cough, shortness of breath at rest, shortness of breath with exertion or wheezing Gastrointestinal Gastrointestinal: Denies abdominal pain, constipation, diarrhea, nausea or vomiting Genitourinary Genitourinary: Denies burning urination, difficulty urinating, dysuria, hematuria, urinary frequency, urinary incontinence or urinary urgency Musculoskeletal Musculoskeletal: Denies back pain, joint pain or muscle weakness Integumentary Integumentary: Reports systems reviewed and no addt'l complaints, except as documented Neurologic Neurologic: Denies abnormal speech, confusion, dizziness, focal weakness, numbness, paresthesias, seizure-like activity or syncope Psychiatric Psychiatric: Denies anxiety or depression Hematologic/Lymphatic Hematologic/Lymphatic: Denies anemia, easy bleeding or easy bruising Allergic/Immunologic Allergic/Immunologic: Denies hives or asthma Vital Signs Vital Signs Vital Signs: 10/27/20 07:43 10/27/20 09:54 10/27/20 11:10 Temperature 97.8 F 98.3 F Temperature Source Temporal Oral Pulse Rate 66 85 49 L Pulse Strength Respiratory Rate 16 15 16 Respiratory Effort Respiratory Depth Respiratory Pattern Blood Pressure 128/89 H 134/88 H 134/94 H Blood Pressure Mean 102 103 107 Blood Pressure Source Blood Pressure Position Blood Pressure Location Pulse Ox 96 96 99 Oxygen Delivery Method Room Air Room Air Room Air 10/27/20 12:00 10/27/20 12:28 10/27/20 12:34 Temperature 97.8 F Temperature Source Oral Pulse Rate 52 L 49 L Pulse Strength Respiratory Rate 16 Respiratory Effort Normal Non-Labored Respiratory Depth Normal Respiratory Pattern Normal Blood Pressure 119/78 Blood Pressure Mean 91 Blood Pressure Source Monitor Blood Pressure Position Semi-Fowlers Blood Pressure Location Right Arm Pulse Ox 97 Oxygen Delivery Method Room Air Room Air 10/27/20 13:48 Temperature Temperature Source Pulse Rate Pulse Strength Normal (2+) Respiratory Rate Respiratory Effort Respiratory Depth Respiratory Pattern Blood Pressure Blood Pressure Mean Blood Pressure Source Blood Pressure Position Blood Pressure Location Pulse Ox Oxygen Delivery Method Weight Weight: 192 lb 0.362 oz Body Mass Index (BMI) 26.7 Physical Exam Const alert, oriented x3 and no apparent distress Orientation / Consciousness: awake, oriented to person, oriented to place and oriented to time HEENT normocephalic and moist oral mucous membranes Eyes PERRL, EOMs intact bilaterally and conjunctivae normal Neck no lymphadenopathy Resp normal respiratory effort and clear to auscultation bilaterally Cardio regular rate, regular rhythm and no murmurs Peripheral Pulses: pulses 2+ throughout GI normal to inspection, nondistended, normoactive bowel sounds, non-tender and non-distended Extremity normal to inspection Skin no rashes or lesions noted Lesions: no lesions Rashes: no rashes Trauma: no lacerations or abrasions Neuro CN's II-XII intact bilaterally, no focal motor deficits, no sensory deficits noted and deep tendon reflexes 2+ bilaterally Psych mental status grossly normal and affect normal Results Lab / Micro Data Result Diagrams: 10/28/20 05:30 10/27/20 08:15 Labs: Laboratory Results - last 24 hr 10/27/20 10/27/20 10/27/20 08:15 08:15 08:15 WBC 4.6 RBC 5.51 Hgb 16.2 Hct 48.5 MCV 88.0 MCH 29.4 MCHC 33.4 RDW Std Deviation 41.1 RDW Coeff of Юлия 12.6 Plt Count 179 MPV 9.1 Immature Gran % (Auto) 0.900 Neut % (Auto) 63.8 Lymph % (Auto) 21.8 [place] % (Auto) 11.0 H Eos % (Auto) 1.9 Baso % (Auto) 0.6 Absolute Neuts (auto) 3.0 Absolute Lymphs (auto) 1.01 Nucleated RBC % 0 Sodium 142 Potassium 4.4 Chloride 109 H Carbon Dioxide 27.0 Anion Gap 6 BUN 24 H Creatinine 1.27 Estim Creat Clear Calc 60.94 Est GFR (MDRD) Af Amer 73 Est GFR (MDRD) Non-Af 60 BUN/Creatinine Ratio 18.9 Glucose 97 Calcium 8.6 Total Bilirubin 0.60 AST 23 ALT 24 Alkaline Phosphatase 80 Troponin I < 0.015 Total Protein 6.9 Albumin 3.7 Globulin 3.2 Albumin/Globulin Ratio 1.2 Urine Color Urine Clarity Urine pH Ur Specific [place] Urine Protein Urine Glucose (UA) Urine Ketones Urine Occult Blood Urine Nitrite Urine Bilirubin Urine Urobilinogen Ur Leukocyte Esterase Urine RBC Urine WBC Ur Squamous Epith Cells Urine Bacteria Urine Mucus Urine Opiates Screen Urine Methadone Screen Ur Barbiturates Screen Ur Phencyclidine Scrn Ur Amphetamines Screen U Methamphetamin-MDMA U Benzodiazepines Scrn Urine Cocaine Screen U Cannabinoids Screen Ur Drug Screen Comment Ethyl Alcohol < 3.0 10/27/20 10/27/20 09:18 09:18 WBC RBC Hgb Hct MCV MCH MCHC RDW Std Deviation RDW Coeff of Юлия Plt Count MPV Immature Gran % (Auto) Neut % (Auto) Lymph % (Auto) [place] % (Auto) Eos % (Auto) Baso % (Auto) Absolute Neuts (auto) Absolute Lymphs (auto) Nucleated RBC % Sodium Potassium Chloride Carbon Dioxide Anion Gap BUN Creatinine Estim Creat Clear Calc Est GFR (MDRD) Af Amer Est GFR (MDRD) Non-Af BUN/Creatinine Ratio Glucose Calcium Total Bilirubin AST ALT Alkaline Phosphatase Troponin I Total Protein Albumin Globulin Albumin/Globulin Ratio Urine Color Yellow Urine Clarity Sl. Cloudy Urine pH 6.0 Ur Specific [place] 1.020 Urine Protein Negative Urine Glucose (UA) Normal Urine Ketones Negative Urine Occult Blood Negative Urine Nitrite Negative Urine Bilirubin Negative Urine Urobilinogen Normal Ur Leukocyte Esterase 25 H Urine RBC 0 SEEN Urine WBC 0-5 SEEN Ur Squamous Epith Cells 0 SEEN Urine Bacteria 0 SEEN Urine Mucus 0 SEEN Urine Opiates Screen NEGATIVE Urine Methadone Screen NEGATIVE Ur Barbiturates Screen NEGATIVE Ur Phencyclidine Scrn NEGATIVE Ur Amphetamines Screen NEGATIVE U Methamphetamin-MDMA NEGATIVE U Benzodiazepines Scrn NEGATIVE Urine Cocaine Screen NEGATIVE U Cannabinoids Screen NEGATIVE Ur Drug Screen Comment Ethyl Alcohol Rhythm Strip Rhythm Strip: Sinus Rhythm Rate: 55 Ectopy: None Radiology Impression Brain CT 10/27/20 07:58 IMPRESSION: 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 Mucosal thickening of the lateral wall of the left maxillary sinus. Electronically Signed: João Heard MD at 8:45 EDT , Service support , Chest X-Ray 10/27/20 07:58 IMPRESSION: No acute abnormality is present. Electronically Signed: João Heard MD at 8:41 EDT , Service support , Assessment & Plan Assessment/Plan (1) Acute confusion: PLAN: 1. Transient memory loss-story consistent with TGA however will rule out CVA/other underlying etiology. Labs, UA, tox screen unremarkable. Obtain MRI of brain, MRA of head and neck. Obtain echocardiogram. PT/OT/ST. Following resulting of imaging, will obtain SOC consult. 2. History of factor II clotting disorder, history of PE-on Xarelto. 3. Hypertension-stable, continue losartan 4. GERD-continue PPI. DVT prophylaxis-Xarelto This patient was seen by Carmen Kelly NP-C under the supervision of Dr. Aponte. Documented by User: Dr. Vilma Aponte MD 10/28/20 05:51 HPI - General General Date of Admission: 10/27/20 [facility] Medical History Factor II deficiency Hypertension Home Medications mometasone [Nasonex] 1 spray NASAL DAILY PRN 10/04/13 [History Last Taken 04/15/15] omeprazole 1 tab PO DAILY 10/04/13 [History Last Taken 04/18/18 06:00] losartan 50 mg PO DAILY 04/16/15 [History Last Taken 10/28/15] metoprolol tartrate 25 mg PO DAILY 01/24/19 [History Last Taken Unknown] rivaroxaban 10 mg PO DAILY #90 tab 01/22/20 [Rx Last Taken Unknown] acetaminophen [Tylenol Extra Strength] 1,000 mg PO Q8H PRN 10/27/20 [History Last Taken Unknown] Allergy/AdvReac Type Severity Reaction Status Date / Time cyclobenzaprine HCl Allergy Severe Swelling Verified 10/27/20 07:43 [From Flexeril] ketorolac tromethamine Allergy Severe Swelling Verified 10/27/20 07:43 [From Toradol] meloxicam Allergy Severe Swelling Verified 10/27/20 07:43 orphenadrine citrate Allergy Severe Swelling Verified 10/27/20 07:43 [From Norflex] Penicillins Allergy Severe Rash Verified 10/27/20 07:43 triamcinolone acetonide Allergy Severe Swelling Verified 10/27/20 07:43 [From Kenalog] Family History (Updated 10/27/20 @ 13:58 by Carmen Kelly COOK PRESSURE, COOK PRESSURE-C) Father Arthritis Hypertension Mother Hypertension Surgical History H/O sinus surgery History of left hip replacement History of repair of anterior cruciate ligament of left knee History of repair of anterior cruciate ligament of right knee History of repair of rotator cuff History of shoulder surgery Hx of tonsillectomy Social History (Updated 10/27/20 @ 13:59 by Carmen Kelly COOK PRESSURE, COOK PRESSURE-C) household members: spouse Smoking Status: Never smoker alcohol intake: never substance use type: does not use Results Lab / Micro Data Result Diagrams: 10/28/20 05:30 10/27/20 08:15 Charges/Coding Addendum Addendum: trial,Continue on XareltoThis patient was seen in conjunction with Carmen Kelly. I have independently interviewed and examined the patient and reviewed pertinent historical, laboratory, and other data. I have reviewed her note and concur with her documentation 65-year-old male with past medical history of prothrombin gene mutation, history of PE, on Xarelto, hypertension who was in his usual state of health and was last known well at 5:30 AM. Patient went to exercise and came back confused. He has no recollection of events afterwards. Patient was alert oriented x3 at time of being seen. He denied any complaints. His work-up in the ED was unremarkable. EKG shows normal sinus rhythm with sinus bradycardia. CT scan of the brain shows old lacunar infarct in the left basal ganglion Chest x-ray is unremarkable Physical Exam: Gen: Appears comfortable, not pale, not jaundiced CVS:HS I +II, regular, no murmurs RESP:CTA GI: BS present and normal, soft, nontender, no palpable organs EXT:No edema ASSESSMENT: 1. Transient global amnesia, need to rule out stroke 2. H/o PE, prothrombin gene deficiency 3. Hypertension 4. GERD Plan: Admit for acute stroke work-up -MRI of the brain, MRA of the head and neck Continue on Xarelto Visit Charges Inpatient E&M: 73088 Init Hosp L3
--- NOTE | 2020-10-27 14:14 | MRI_ITS ---
EXAM: MR HEAD WITHOUT INTRAVENOUS CONTRAST : 1955 CLINICAL INDICATION: CONFUSION, neurodeficit TECHNIQUE: Multiplanar and multisequence MR images of the brain were obtained without intravenous contrast. This report was created using [employer] report generation technology. COMPARISON: CT brain October 27, 2020 FINDINGS: BRAIN AND EXTRA-AXIAL SPACES: Prominent Virchow-Usman space noted noted on the left versus 9 mm chronic lacunar infarct. No intra- or extra-axial hemorrhage. No intracranial mass or mass effect. Posterior fossa structures are unremarkable. Basal cisterns are patent. SELLA: Unremarkable. Normal sella turcica, pituitary gland, infundibular stalk, optic chiasm and hypothalamus. AUDITORY SYSTEM: Unremarkable. The internal auditory canals are patent. BONES/JOINTS: Unremarkable. No discrete lytic or blastic abnormalities. SINUSES: Unremarkable as visualized. Clear. MASTOID AIR CELLS: Unremarkable as visualized. Clear. ORBITS: Unremarkable as visualized. Both globes, extraocular muscles, optic nerves and retrobulbar fat appear unremarkable. VASCULATURE: Unremarkable as visualized. Normal flow voids in the major intracranial circulation. MRI/Brain without Contrast IMPRESSION: No acute intracranial abnormality. at 1649 Reported and signed by: Tyrese Gavin MD Electronically Signed: Tyrese Gavin MD at 16:48 EDT Tel , Service support ,
[2020-10-27] MEDS: Atorvastatin Calcium 80 MG Tablet PO (22:18)
[2020-10-28 02:00] VITALS: BP 110/70; PULSE 50; RESP 16; TEMP 36.6; O2SAT 95
[2020-10-28 03:00] VITALS: PULSE 47
[2020-10-28] MEDS: 0.9% Normal Saline 1,000 ML 75 ML IV (03:50)
[2020-10-28 05:37] LABS: Absolute Neutrophil Count 2.8 X10^3/uL (2.0-7.7); Basophil# 0.03 X10^3/uL; Basophil% 0.6 % (0-1); Eosinophil# 0.15 X10^3/uL; Eosinophils% 3.2 % (0-5); Hematocrit 44.3 % (40-54); Lymphocyte % 27.4 % (19-41); Mean Corp Hgb Conc 33.9 g/dL (32-36); Mean Corpuscular Hgb 29.6 pg (27.0-32.0); Mean Corpuscular Volume 87.5 fL (80-94); Mean Platelet Vol. 9.1 fl (6.2-12.0); Monocyte# 0.45 X10^3/uL; Monocyte% 9.5 % (0-10); NRBC Flagged by Analyzer 0 % (0-5); Neutrophil # 2.77 X10^3/uL (2.7-7.7); Neutrophil % 58.5 % (47-70); Platelet Count 157 K/mm3 (150-450); RBC Distribution Width CV 12.8 % (11.6-14.6); RBC Distribution Width SD 40.9 fl (35.1-43.9); Red Blood Count 5.06 M/mm3 (4.6-6.2); White Blood Count 4.7 K/mm3 (4.4-11.0)
[2020-10-28 05:59] LABS: ALB/GLOB Ratio 1.1 RATIO (0.9-2.4); AST(SGOT) 19 U/L (15-37); Alanine Aminotransfer ALT/SGPT 20 U/L (16-61); Alkaline Phosphatase 67 U/L (45-117); Anion Gap 6 (5-15); BUN 20 mg/dL (7-18); Calcium,Total 7.9 mg/dL (8.5-10.1); Chloride 110 mmol/L (98-107); Cholesterol 154 mg/dL (200); Creatinine, Serum 1.11 mg/dL (0.70-1.30); EST Glomerular Filtration Rate 70 mL/min (>60); Est Glom Filt Rate - Afr Amer 85 mL/min (>60); Estimated Creatinine Clearance 69.72 ml/min; Globulin 2.8 g/dL (2.2-4.2); Glucose 93 mg/dL (74-106); High Density Lipoprotein 40 mg/dL; Protein, Total 5.8 g/dL (6.4-8.2); Sodium Level 140 mmol/L (136-145); Triglycerides 134 mg/dL; Very Low Density Lipoprotein 27 mg/dL (5-40)
[2020-10-28 06:37] VITALS: PULSE 50
[2020-10-28 07:44] VITALS: O2SAT 95
[2020-10-28 07:59] VITALS: BP 121/78; PULSE 53; RESP 16; TEMP 36.6; O2SAT 98
[2020-10-28] MEDS: Pantoprazole Sodium 40 MG Tablet PO (08:01)
[2020-10-28] MEDS: Rivaroxaban 10 MG Tablet PO (08:01)
[2020-10-28] MEDS: Aspirin 81 MG TAB.CHEW PO (08:02)
--- NOTE | 2020-10-28 08:10 | TELEMED_ITS ---
SOC Telemed has confirmed receipt of a request for visit. This document confirms receipt of the order initiating the consult. To find the results of the consultation, please view the patient's reports for the scanned Telemed Consult.
[2020-10-28 08:31] VITALS: PULSE 46
--- NOTE | 2020-10-28 09:36 | CASEMGMT ---
RN CM KITCHEN STEWARD CM to room to meet with patient for initial transition planning/care coordination assessment. RN MARGO introduced self and role at [facility]. Pt voices understanding and consents to assessment at this time. Pt sitting up in chair in room in no distress at this time. Pt is A/O at this time and answers all questions appropriately. Care providers, pharmacy, and demographics verified/updated at this time. PCP: Dr Ford Specialists: Dr Vann--hematology Preferred Pharmacy: [facility] Retail Insurance: [facility] Prescription Benefit: Yes Living Will/HPOA: States does not have LW or HCPOA . Interested in more information but states does not want to talk with SW at this time to complete paperwork. Provided information on advanced directives and given Social Service rac card with number to call if chooses in the future to utilize [facility] social work for advanced directive completion. Educated patient that, if patient so chooses, can come back to [facility] and meet with a SW as an outpatient to complete health care advanced directives. Patient expresses understanding. LNOK: , Susy Living Arrangements: Lives w/ in one-story home w/2 steps to enter. Independent. Works full-time. Transportation: Pt states drives self and states no transportation concerns at this time. also drives. DME: Denies using any DME and denies needs. HHC/SNF: No history of either. No needs identified. Has done OP therapy after ortho surgeries. Pt wishes to return home and states has no concerns with going home at time of discharge. CM to follow for any discharge planning/needs. Pt voices no concerns/needs at this time. Advised pt to ask for CM if any questions/concerns/needs arise. Voices understanding. PLAN: Home w/. Glenys MITTAL RN, CM
[2020-10-28] MEDS: Losartan Potassium 50 MG Tablet PO (09:55)
--- NOTE | 2020-10-28 10:20 | CASEMGMT ---
SW did not complete a PHQ 9 as per Nurse Practitioner he did not have a Stroke or TIA. Linda Taylor ELEMENTARY SCIENCE TEACHER ROSALINA
--- NOTE | 2020-10-28 11:42 | PCM.DC ---
Discharge Instructions Diet Discharge Diet: No restrictions Activity Discharge Activity: Return to Normal Activity Dressing / Incision Call your doctor if you observe: Shortness of breath, Dizziness and Chest pain Follow Up Care Test Results: Test results from this visit will be discussed in further detail at your follow-up appointment, if applicable. Discharge Plan Admission Admit Date/Time: 10/27/20 10:55 Primary Reason for Your Visit: Transient global amnesia Attending Provider: Vilma Aponte Primary Care Provider: Salinas Ford Discharge Orders/Prescriptions Prescriptions: Continued omeprazole 40 MG capsule,delayed release(DR/EC) 1 tab PO DAILY RF: 0 mometasone [Nasonex] 1 SPRAY spray,non-aerosol 1 spray NASAL DAILY PRN (Reason: ALLERGY) RF: 0 losartan 50 MG tablet 50 mg PO DAILY RF: 0 metoprolol tartrate 25 MG tablet 25 mg PO DAILY RF: 0 rivaroxaban 10 MG tablet 10 mg PO DAILY Qty: 90 RF: 11 acetaminophen 500 mg Capsule 1,000 mg PO Q8H PRN (Reason: Pain) RF: 0 Referrals / Follow Up: Salinas Ford MD [Primary Care Provider] - In 1 Week Rasheed Guerrero MD [STAFF PHYSICIAN] - Within 2 Weeks Disposition Disposition (needs filled in before D/C Order can be placed): Home, self care
--- NOTE | 2020-10-28 11:56 | DS.PCM_ITS ---
Documented by User: Carmen Kelly NP, S[employer]IOR [employer] DEVELOPER-C 10/28/20 12:01 Providers Date of Admission: 10/27/20 Date of Discharge: 10/28/20 Primary Care Physician: Dr. Salinas Ford MD Reason For Visit: AMS Diagnosis Discharge Diagnosis (1) Acute confusion: Status: Acute Code(s): R41.0 - Disorientation, unspecified Medications at Discharge Home Medications mometasone [Nasonex] 1 spray NASAL DAILY PRN 10/04/13 omeprazole 1 tab PO DAILY 10/04/13 losartan 50 mg PO DAILY 04/16/15 metoprolol tartrate 25 mg PO DAILY 01/24/19 rivaroxaban 10 mg PO DAILY #90 tab 01/22/20 acetaminophen 1,000 mg PO Q8H PRN 10/27/20 Hospital Course Operations None Procedures 2-D Echocardiogram and Electroencephalogram Summary of Care Provided Minutes Spent on Discharge: 35 Hospital Course: Patient is a 65-year-old male admitted 10/27/2020 due to transient memory loss. 1. Transient global amnesia-TIA/CVA ruled out. MRI of brain, MRA of head and neck normal. Echocardiogram demonstrates an EF of 60%, pulmonary artery sy stolic pressure 28 mmHg. SOC neurology consult obtained who also suspects TGA. Recommended EEG to complete work-up, completed during admission, report pending. Follow-up with PCP in 1 week. Follow-up with neurology for routine follow-up in 2 weeks. 2. History of factor II clotting disorder, history of PE-on Xarelto. 3. Hypertension-stable, continue losartan, metoprolol. 4. GERD-continue PPI. Physical Exam Const alert, oriented x3 and no apparent distress Orientation / Consciousness: awake, oriented to person, oriented to place and oriented to time HEENT normocephalic and moist oral mucous membranes Eyes PERRL, EOMs intact bilaterally and conjunctivae normal Neck no lymphadenopathy Resp normal respiratory effort and clear to auscultation bilaterally Cardio regular rate, regular rhythm and no murmurs Peripheral Pulses: pulses 2+ throughout GI normal to inspection, nondistended, normoactive bowel sounds, non-tender and non-distended Extremity normal to inspection Skin no rashes or lesions noted Lesions: no lesions Rashes: no rashes Trauma: no lacerations or abrasions Neuro CN's II-XII intact bilaterally, no focal motor deficits, no sensory deficits noted and deep tendon reflexes 2+ bilaterally Psych mental status grossly normal and affect normal Patient seen and examined prior to discharge. Physical assessment as noted above. Patient is stable for discharge with follow up recommendations as noted above. This patient was seen by AAKASH Shane under the supervision of Dr. Aponte. Weight / BMI Weight Weight: 192 lb 0.362 oz Body Mass Index (BMI) 26.7 ABG / Lab / Microbiology Data Result Diagrams: 10/28/20 05:30 10/28/20 05:30 Laboratory: Laboratory Results - last 24 hr 10/28/20 10/28/20 05:30 05:30 WBC 4.7 RBC 5.06 Hgb 15.0 Hct 44.3 MCV 87.5 MCH 29.6 MCHC 33.9 RDW Std Deviation 40.9 RDW Coeff of Юлия 12.8 Plt Count 157 MPV 9.1 Immature Gran % (Auto) 0.800 Neut % (Auto) 58.5 Lymph % (Auto) 27.4 Evangeline % (Auto) 9.5 Eos % (Auto) 3.2 Baso % (Auto) 0.6 Absolute Neuts (auto) 2.8 Absolute Lymphs (auto) 1.30 Nucleated RBC % 0 Sodium 140 Potassium 4.0 Chloride 110 H Carbon Dioxide 24.0 Anion Gap 6 BUN 20 H Creatinine 1.11 Estim Creat Clear Calc 69.72 Est GFR (MDRD) Af Amer 85 Est GFR (MDRD) Non-Af 70 BUN/Creatinine Ratio 18.0 Glucose 93 Calcium 7.9 L Total Bilirubin 0.60 AST 19 ALT 20 Alkaline Phosphatase 67 Total Protein 5.8 L Albumin 3.0 L Globulin 2.8 Albumin/Globulin Ratio 1.1 Triglycerides 134 Cholesterol 154 LDL Cholesterol 87 VLDL Cholesterol 27 HDL Cholesterol 40 Radiography Diagnostic Testing: Radiology Impression Neck MRA 10/27/20 12:28 IMPRESSION: Unremarkable MRA neck. at 0101 Reported and signed by: Tyrese Gavin MD Electronically Signed: Tyrese Gavin MD at 16:57 EDT Tel , Service support , Echocardiogram 10/27/20 12:29 Interpretation Summary Normal LV size. Left ventricular systolic function is normal. The estimated ejection fraction is 60 %. Trivial eccentric mitral valve insufficiency. Pulmonary artery systolic pressure is 28 mmHg. Ordering Physician: Vilma Aponte Referring Physician: Salinas Ford Performed By: Rosalia Sanders RDCS, RVT Head MRA 10/27/20 12:30 IMPRESSION: Unremarkable MRA head. at 1643 Reported and signed by: Tyrese Gavin MD Electronically Signed: Tyrese Gavin MD at 16:42 EDT Tel , Service support , Brain MRI 10/27/20 14:14 IMPRESSION: No acute intracranial abnormality. at 1649 Reported and signed by: Tyrese Gavin MD Electronically Signed: Tyrese Gavin MD at 16:48 EDT Tel , Service support , D/C Instructions Discharge Diet: No restrictions Call your doctor if you observe: Shortness of breath, Dizziness and Chest pain Meaningful Use Info Meaningful Use Diagnoses (Choose all that apply): None applicable Discharge Plan Admission Admit Date/Time: 10/27/20 10:55 Primary Reason for Your Visit: Transient global amnesia Attending Provider: Vilma Aponte Primary Care Provider: Salinas Ford Discharge Orders/Prescriptions Prescriptions: Continued omeprazole 40 MG capsule,delayed release(DR/EC) 1 tab PO DAILY RF: 0 mometasone [Nasonex] 1 SPRAY spray,non-aerosol 1 spray NASAL DAILY PRN (Reason: ALLERGY) RF: 0 losartan 50 MG tablet 50 mg PO DAILY RF: 0 metoprolol tartrate 25 MG tablet 25 mg PO DAILY RF: 0 rivaroxaban 10 MG tablet 10 mg PO DAILY Qty: 90 RF: 11 acetaminophen 500 mg Capsule 1,000 mg PO Q8H PRN (Reason: Pain) RF: 0 Referrals / Follow Up: Salinas Ford MD [Primary Care Provider] - In 1 Week Rasheed Guerrero MD [STAFF PHYSICIAN] - Within 2 Weeks Disposition Disposition (needs filled in before D/C Order can be placed): Home, self care Documented by User: Dr. Vilma Aponte MD 10/28/20 12:21 Providers Date of Admission: 10/27/20 Reason For Visit: AMS Medications at Discharge Home Medications mometasone [Nasonex] 1 spray NASAL DAILY PRN 10/04/13 omeprazole 1 tab PO DAILY 10/04/13 losartan 50 mg PO DAILY 04/16/15 metoprolol tartrate 25 mg PO DAILY 01/24/19 rivaroxaban 10 mg PO DAILY #90 tab 01/22/20 acetaminophen 1,000 mg PO Q8H PRN 10/27/20 ABG / Lab / Microbiology Data Result Diagrams: 10/28/20 05:30 10/28/20 05:30 Discharge Plan Admission Admit Date/Time: 10/27/20 10:55 Primary Reason for Your Visit: Transient global amnesia Attending Provider: Vilma Aponte Primary Care Provider: Salinas Ford Discharge Orders/Prescriptions Prescriptions: Continued omeprazole 40 MG capsule,delayed release(DR/EC) 1 tab PO DAILY RF: 0 mometasone [Nasonex] 1 SPRAY spray,non-aerosol 1 spray NASAL DAILY PRN (Reason: ALLERGY) RF: 0 losartan 50 MG tablet 50 mg PO DAILY RF: 0 metoprolol tartrate 25 MG tablet 25 mg PO DAILY RF: 0 rivaroxaban 10 MG tablet 10 mg PO DAILY Qty: 90 RF: 11 acetaminophen 500 mg Capsule 1,000 mg PO Q8H PRN (Reason: Pain) RF: 0 Referrals / Follow Up: Salinas Ford MD [Primary Care Provider] - In 1 Week Rasheed Guerrero MD [STAFF PHYSICIAN] - Within 2 Weeks Disposition Disposition (needs filled in before D/C Order can be placed): Home, self care Charges/Coding Addendum Addendum: This patient was seen in conjunction with Carmen Kelly. I have independently interviewed and examined the patient and reviewed pertinent his torical, laboratory, and other data. I have reviewed her note and concur with her documentation 65-year-old male with past medical history of prothrombin gene mutation, history of PE, on Xarelto, hypertension who was in his usual state of health and was last known well at 5:30 AM. Patient went to exercise and came back confused. He has no recollection of events afterwards. 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 No acute events overnight. MRI of the brain as well as MRA of the head and neck was unremarkable. He will follow up with neurology in the outpatient On the day of discharge, patient was seen and examined. Patient appears to be his baseline Physical Exam: Gen: Appears comfortable, not pale, not jaundiced CVS:HS I +II, regular, no murmurs RESP:CTA GI: BS present and normal, soft, nontender, no palpable organs EXT:No edema Visit Charges Inpatient E&M: 50724 Disch Hosp
== END 2020-10-28 11:45 | disposition home or self-care (01) ==
LOC: ED 10:59 → PCU 10-28 09:12
PROVIDERS: Admitting Provider Internal Medicine; Emergency Provider Emergency Medicine; PCP Family Medicine; Visit Provider Internal Medicine
DX: G45.4 Transient global amnesia (principal); K21.9 Gastro-esophageal reflux disease without esophagitis; I08.1 Rheumatic disorders of both mitral and tricuspid valves; I10 Essential (primary) hypertension; D68.2 Hereditary deficiency of other clotting factors; R29.700 NIHSS score 0; Z86.718 Personal history of other venous thrombosis and embolism; Z79.899 Other long term (current) drug therapy; Z79.01 Long term (current) use of anticoagulants; Z86.711 Personal history of pulmonary embolism; R00.1 Bradycardia, unspecified
CPT/HCPCS: 36415; 70450; 70544; 70549; 70551; 71045; 80053; 80061; 80307; 81001; 82077; 84484; 85025; 92523; 92610; 93005; 93306; 95819; 96360; 96361; 97161; 97165; 97802; 99218; 99285; A9575; J7030; A4216; G0378

== ENCOUNTER → 2021-09-21 | Outpatient (CLI) | payer OTHER, SELFPAY ==
[2021-09-21 10:27] LABS: Anion Gap 7 (5-15); BUN 21 mg/dL (7-18); BUN/Creat Ratio 16.5 RATIO (10-20); Calcium,Total 8.9 mg/dL (8.5-10.1); Chloride 107 mmol/L (98-107); Cholesterol 156 mg/dL (200); Creatinine, Serum 1.27 mg/dL (0.70-1.30); EST Glomerular Filtration Rate 60 mL/min (>60); Est Glom Filt Rate - Afr Amer 73 mL/min (>60); Glucose 89 mg/dL (74-106); High Density Lipoprotein 59 mg/dL; Potassium 3.8 mmol/L (3.5-5.1); Sodium Level 141 mmol/L (136-145); Triglycerides 61 mg/dL; Very Low Density Lipoprotein 12 mg/dL (5-40)
== END | disposition home or self-care (01) ==
LOC: MTLAB 07:45
PROVIDERS: PCP Family Medicine; Referring Provider Family Medicine; Visit Provider Family Medicine
DX: I10 Essential (primary) hypertension (principal)
CPT/HCPCS: 36415; 80048; 80061

== ENCOUNTER → 2022-03-16 | Outpatient (CLI) | payer OTHER, SELFPAY ==
[2022-03-16 10:39] LABS: Anion Gap 2 (5-15); BUN 20 mg/dL (7-18); BUN/Creat Ratio 18.5 RATIO (10-20); Chloride 107 mmol/L (98-107); Cholesterol 164 mg/dL (200); Creatinine, Serum 1.08 mg/dL (0.70-1.30); EST Glomerular Filtration Rate 72 mL/min (>60); Est Glom Filt Rate - Afr Amer 88 mL/min (>60); Glucose 106 mg/dL (74-106); High Density Lipoprotein 61 mg/dL; PSA,Total - Annual Screen 2.41 ng/mL (0.00-4.00); Potassium 4.2 mmol/L (3.5-5.1); Sodium Level 140 mmol/L (136-145); Triglycerides 81 mg/dL; Very Low Density Lipoprotein 16 mg/dL (5-40)
== END | disposition home or self-care (01) ==
LOC: MTLAB 08:32
PROVIDERS: PCP Family Medicine; Visit Provider Family Medicine
DX: Z00.00 Encounter for general adult medical examination without abnormal findings (principal); E78.00 Pure hypercholesterolemia, unspecified
CPT/HCPCS: 36415; 80048; 80061; 84153; G0103

== ENCOUNTER → 2023-03-21 | Outpatient (CLI) | payer OTHER, SELFPAY ==
[2023-03-21 10:19] LABS: ALB/GLOB Ratio 1.1 RATIO (0.9-2.4); AST(SGOT) 24 U/L (15-37); Alanine Aminotransfer ALT/SGPT 21 U/L (16-61); Albumin, Serum 3.6 g/dL (3.2-5.0); Alkaline Phosphatase 68 U/L (45-117); Anion Gap 1 (5-15); BUN 18 mg/dL (7-18); BUN/Creat Ratio 16.1 RATIO (10-20); Calcium,Total 8.5 mg/dL (8.5-10.1); Chloride 109 mmol/L (98-107); Cholesterol 157 mg/dL (200); Creatinine, Serum 1.12 mg/dL (0.70-1.30); EST Glomerular Filtration Rate 69 mL/min (>60); Est Glom Filt Rate - Afr Amer 84 mL/min (>60); Globulin 3.2 g/dL (2.2-4.2); Glucose 100 mg/dL (74-106); High Density Lipoprotein 54 mg/dL; Protein, Total 6.8 g/dL (6.4-8.2); Sodium Level 140 mmol/L (136-145); Triglycerides 118 mg/dL; Very Low Density Lipoprotein 24 mg/dL (5-40)
== END | disposition home or self-care (01) ==
LOC: MTLAB 07:47
PROVIDERS: PCP Family Medicine; Referring Provider Family Medicine; Visit Provider Family Medicine
DX: E78.00 Pure hypercholesterolemia, unspecified (principal)
CPT/HCPCS: 36415; 80053; 80061

== ENCOUNTER 2023-03-24 19:07 | Emergency (ER) | payer OTHER, SELFPAY ==
[2023-03-24 19:08] VITALS: BP 134/87; PULSE 78; RESP 16; TEMP 36.3; O2SAT 100; BMI 25.2
[2023-03-24] MEDS: DiphenhydrAMINE 25 MG Capsule 50 MG PO (19:44)
[2023-03-24] MEDS: Famotidine 20 MG Tablet PO (19:44)
[2023-03-24] MEDS: predniSONE 20 MG Tablet 60 MG PO (19:44)
--- NOTE | 2023-03-24 19:48 | RAD_ITS ---
EXAM: XR CERVICAL SPINE, 2 OR 3 VIEWS CLINICAL INDICATION: pain TECHNIQUE: Frontal and lateral views of the cervical spine. COMPARISON: No relevant prior studies available. FINDINGS: VERTEBRAE: Straightening of expected cervical lordosis may be in part positional. Multilevel facet, uncovertebral joint, and endplate osteophytosis. Degenerative pseudosubluxation of C4 on C5. Preserved vertebral body height. No acute fracture. No spondylolisthesis. DISC SPACES: Multilevel intervertebral disc height loss. SOFT TISSUES: Mild prominence of the prevertebral soft tissues may be in part related to position. LUNG APICES: The lung apices appear clear. RAD/Cerv Spine 2 or 3 Views IMPRESSION: 1. Extensive degenerative changes. 2. Prevertebral soft tissue fullness. Correlate clinically for signs or symptoms of infection/inflammation. This may be in part positional. Follow-up as indicated. Consider CT. Electronically Signed: Darren Holguin DO at 20:09 EDT ,
--- NOTE | 2023-03-24 19:51 | EDS_ITS ---
HPI History of Present Illness Chief Complaint: Back Informant: patient and spouse/S.O. Narrative Narrative: Presents the ED for evaluation of persistent right-sided neck pain worse with turning to the right. Denies any trauma. Symptom started a week ago. Saw his PCP 2 days ago had some rhinorrhea. He was placed on Levaquin antibiotic and Flexeril 5 mg. He took 1 tab Monday he noted swelling around his neck slowly progressed since then. He finally has an allergy to this Flexeril years ago. Reports pain with swallowing. He is on Xarelto for history of factor II with multiple blood clots. He is not a diabetic. [facility] Medical History Factor II deficiency Hypertension TGA (transient global amnesia) Home Medications mometasone 50 mcg/actuation nasal spray (Nasonex) 1 spray DAILY PRN ALLERGY 10/04/13 [History Last Taken 04/15/15] omeprazole 40 mg capsule,delayed release 1 tab PO DAILY gerd 10/04/13 [History Last Taken 04/18/18 06:00] losartan 50 mg tablet 50 mg PO DAILY bp 04/16/15 [History Last Taken 10/28/15] metoprolol tartrate 25 mg tablet 25 mg PO DAILY blood pressure 01/24/19 [History Last Taken Unknown] acetaminophen 500 mg capsule 1,000 mg PO Q8H PRN Pain 10/27/20 [History Last Taken Unknown] rivaroxaban 10 mg tablet 10 mg PO DAILY #90 tabs 04/07/22 [Rx Last Taken Unknown] diazepam 5 mg tablet 5 mg PO Q8 PRN Muscle Spasm #12 tabs 03/24/23 [Rx Last Taken Unknown] famotidine 20 mg tablet (Pepcid) 20 mg PO BID #10 tabs 03/24/23 [Rx Last Taken Unknown] prednisone 20 mg tablet 60 mg (3 x 20 mg) PO DAILY #12 TABLETS 03/24/23 [Rx Last Taken Unknown] Allergy/AdvReac Type Severity Reaction Status Date / Time cyclobenzaprine HCl Allergy Severe Swelling Verified 01/20/21 14:33 [From Flexeril] ketorolac tromethamine Allergy Severe Swelling Verified 01/20/21 14:33 [From Toradol] meloxicam Allergy Severe Swelling Verified 01/20/21 14:33 orphenadrine citrate Allergy Severe Swelling Verified 01/20/21 14:33 [From Norflex] Penicillins Allergy Severe Rash Verified 01/20/21 14:33 triamcinolone acetonide Allergy Severe Swelling Verified 01/20/21 14:33 [From Kenalog] Family History Father Arthritis Hypertension Mother Hypertension Surgical History H/O sinus surgery History of left hip replacement History of repair of anterior cruciate ligament of left knee History of repair of anterior cruciate ligament of right knee History of repair of rotator cuff History of shoulder surgery Hx of tonsillectomy Social History household members: spouse Smoking Status: Never smoker alcohol intake: never substance use type: does not use ROS ROS ED Constitutional Constitutional ED: Denies chills, fever(s) or sweats Eyes Eyes: Denies change in vision ENT ENT ED: Reports sore throat; Denies dysphagia Cardiovascular Cardiovascular: Denies chest pain, leg edema, palpitations or racing heartbeat Respiratory/Chest Respiratory/Chest: Denies cough, dyspnea or dyspnea on exertion Gastrointestinal Gastrointestinal: Denies abdominal pain, diarrhea, nausea or vomiting Genitourinary Genitourinary ED: Denies dysuria, hematuria or urinary frequency Musculoskeletal Musculoskeletal: Reports neck pain; Denies back pain or extremity pain Integumentary Denies rash or wounds Neurologic Neurologic: Denies headache(s), paresthesias or weakness EXAM Physical Exam Const Vital Signs: 03/24/23 19:08 03/24/23 21:39 Temperature 97.4 F L Temperature Source Temporal Pulse Rate 78 65 Respiratory Rate 16 15 Blood Pressure 134/87 H 120/77 Blood Pressure Mean 102 91 Pulse Ox 100 95 Oxygen Delivery Method Room Air Room Air Positive well nourished and well developed General Appearance ED: well developed and NAD HEENT Reports moist mucous membranes HEENT Narrative: Posterior pharyngeal erythema no stridor no lip or tongue swelling. Airway patent. No trismus. normocephalic and atraumatic Eyes PERRL, EOMs intact bilaterally and conjunctivae normal General Eye ED: Yes normal appearance of both eyes Neck supple Neck Narrative: Tender anterior cervical lymphadenopathy bilaterally. General: Negative for tenderness Chest Wall Chest: Negative for tenderness Resp normal respiratory effort and normal air movement Effort and Inspection: symmetric chest movement; Negative for respiratory distress Cardio regular rate, regular rhythm and no murmurs Peripheral Pulses: pulses 2+ throughout GI normal to inspection, nondistended, normoactive bowel sounds and non-tender Palpation: Negative for guarding or rebound tenderness present Back/Spine no CVA tenderness and no thoracic nor lumbar tenderness Extremity normal to inspection General Extremety ED: Negative for edema or tenderness General Extremity: Negative for edema Neuro oriented x3 and no sensory deficits noted Sensorium / Orientation: awake and alert Skin no rashes or lesions noted and no wounds MDM MDM MDM Narrative Medical decision making narrative: Interventions / MDM: Differential diagnosis: Torticollis, pharyngitis, medication allergic reaction Diagnosis considered but do not suspect: N/A My EKG interpretation: N/A Imaging independently reviewed and interpreted by myself: Three-view x-ray cervical spine: No bony process. There is a prevertebral soft tissue swelling no encroachment on the airway. External documents reviewed: N/A Test considered but not ordered:N/A ED course: Patient nontoxic and with torticollis symptoms, concerns for swelling, airway patent there is posterior pharyngeal erythema. Rapid strep obtained, he is covered for allergic reaction with prednisone Benadryl and Pepcid. Cervical spine x-rays obtained. Cervical spine x-rays with prevertebral swelling no airway encroachment. Reevaluation no worsening however no improvement. Rapid strep is negative. For his neck pain covered Valium for which she tolerated well in the ED. Discussed with patient continue treatment for medication reaction and swelling. Prednisone will help with inflammation. Continue Valium as needed. We will follow-up with PCP for reevaluation further treatment for his neck pain as needed. Return precautions discussed. All questions were answered. Re-evaluation: stable Disposition discussed with patient/family/significant other: Patient and significant other Case discussed with consulting clinician: N/A This note was generated with [employer] dictation software. It may contain incorrect words, spelling, and punctuation that were not noted in checking the note before signing. Radiography Diagnostic Testing: Clinical Impression(s) from Imaging Studies Cervical Spine X-Ray 03/24/23 19:48 IMPRESSION: 1. Extensive degenerative changes. 2. Prevertebral soft tissue fullness. Correlate clinically for signs or symptoms of infection/inflammation. This may be in part positional. Follow-up as indicated. Consider CT. Electronically Signed: Darren Holguin DO at 20:09 EDT , Discharge Plan Triage Chief Complaint: Back ED Provider: Harshad Gaines Dx/Rx/DC Orders Clinical Impression: Medication side effect, Torticollis, Pharyngitis Instructions: Self-Care for Sore Throats, Torticollis (Wry Neck) Prescriptions: New prednisone 20 mg tablet 60 mg PO DAILY Qty: 12 0RF diazepam [diazepam] 5 mg tablet 5 mg PO Q8 PRN (Reason: Muscle Spasm) Qty: 12 0RF famotidine [Pepcid] 20 mg tablet 20 mg PO BID Qty: 10 0RF No Action omeprazole 40 MG capsule,delayed release(DR/EC) 1 tab PO DAILY Patient Comments: reflux mometasone [Nasonex] 1 SPRAY spray,non-aerosol 1 spray NASAL DAILY PRN (Reason: ALLERGY) Patient Comments: allergies losartan 50 MG tablet 50 mg PO DAILY Patient Comments: blood pressure metoprolol tartrate 25 MG tablet 25 mg PO DAILY acetaminophen 500 mg Capsule 1,000 mg PO Q8H PRN (Reason: Pain) rivaroxaban 10 mg tablet 10 mg PO DAILY Qty: 90 3RF Primary Care Provider: Salinas Ford Referrals: Salinas Ford MD [Primary Care Provider] - 3-5 Days Activity Restrictions/Additional Instructions: Do not continue Flexeril. May use Valium as needed. Continue prednisone and Pepcid, may use Benadryl every 6 hours as needed. Follow-up with Dr. Aldrich for reevaluation. Return if any worsening symptoms. Disposition Disposition: Home, Self Care
[2023-03-24 21:39] VITALS: BP 120/77; PULSE 65; RESP 15; O2SAT 95
[2023-03-24] MEDS: diazePAM 5 MG Tablet PO (21:41)
[2023-03-24 22:55] VITALS: BP 120/77; PULSE 65; RESP 15; O2SAT 95
== END 2023-03-24 22:56 | disposition home or self-care (01) ==
PROVIDERS: Emergency Provider Emergency Medicine; PCP Family Medicine; Visit Provider Emergency Medicine
DX: M43.6 Torticollis (principal); J02.9 Acute pharyngitis, unspecified; T50.995A Adverse effect of other drugs, medicaments and biological substances, initial encounter; Z79.01 Long term (current) use of anticoagulants
CPT/HCPCS: 72040; 87880; 99283

== ENCOUNTER → 2023-09-13 | Outpatient (CLI) | payer OTHER, SELFPAY ==
[2023-09-13 10:40] LABS: PSA,Total - Annual Screen 2.84 ng/mL (0.00-4.00)
== END | disposition home or self-care (01) ==
LOC: MFPLAB 08:37
PROVIDERS: Family Medicine; PCP Family Medicine; Visit Provider Family Medicine
DX: Z12.5 Encounter for screening for malignant neoplasm of prostate (principal)
CPT/HCPCS: 36415; 84153; G0103

== ENCOUNTER → 2024-01-12 | Outpatient (CLI) | payer OTHER, SELFPAY ==
[2024-01-12 12:19] LABS: Absolute Lymphocyte Count 1.28 X10^3/uL (0.83-4.51); Basophil# 0.05 X10^3/uL; Basophil% 0.8 % (0-1); Eosinophil# 0.09 X10^3/uL; Eosinophils% 1.5 % (0-5); Hematocrit 47.5 % (40-54); Hemoglobin 15.9 g/dL (13.0-16.5); Lymphocyte # 1.28 X10^3/ul (0.83-4.51); Lymphocyte % 20.8 % (19-41); Mean Corp Hgb Conc 33.5 g/dL (32-36); Mean Corpuscular Hgb 29.9 pg (27.0-32.0); Mean Corpuscular Volume 89.5 fL (80-94); Mean Platelet Vol. 9.7 fl (6.2-12.0); Monocyte# 0.64 X10^3/uL; Monocyte% 10.4 % (0-10); NRBC Flagged by Analyzer 0 % (0-5); Neutrophil # 4.04 X10^3/uL (2.7-7.7); Neutrophil % 65.5 % (47-70); Platelet Count 187 K/mm3 (150-450); RBC Distribution Width CV 12.8 % (11.6-14.6); RBC Distribution Width SD 41.8 fl (35.1-43.9); Red Blood Count 5.31 M/mm3 (4.6-6.2); White Blood Count 6.2 K/mm3 (4.4-11.0)
[2024-01-12 13:01] LABS: ALB/GLOB Ratio 1.1 RATIO (0.9-2.4); AST(SGOT) 22 U/L (15-37); Alanine Aminotransfer ALT/SGPT 21 U/L (16-61); Albumin, Serum 3.6 g/dL (3.2-5.0); Alkaline Phosphatase 72 U/L (45-117); Anion Gap 6 (5-15); BUN 21 mg/dL (7-18); BUN/Creat Ratio 18.8 RATIO (10-20); Calcium,Total 8.6 mg/dL (8.5-10.1); Chloride 107 mmol/L (98-107); Creatinine, Serum 1.12 mg/dL (0.70-1.30); EST Glomerular Filtration Rate 69 mL/min (>60); Est Glom Filt Rate - Afr Amer 84 mL/min (>60); Globulin 3.2 g/dL (2.2-4.2); Glucose 89 mg/dL (74-106); Potassium 4.6 mmol/L (3.5-5.1); Protein, Total 6.8 g/dL (6.4-8.2); Sodium Level 139 mmol/L (136-145)
== END | disposition home or self-care (01) ==
LOC: MFPLAB 09:26
PROVIDERS: PCP Family Medicine; Visit Provider Family Medicine
DX: R73.9 Hyperglycemia, unspecified (principal); R53.83 Other fatigue
CPT/HCPCS: 36415; 80053; 83036; 84443; 85025

== ENCOUNTER → 2024-02-20 | Outpatient (CLI) | payer OTHER, SELFPAY ==
--- NOTE | 2024-02-20 14:30 | STRESSREP_ITS ---
Stress Test Report Date: 02/20/2024 Procedure: Exercise tolerance test Indications: Dyspnea Consent: Per the patient Procedure: The patient exercised on a Timothy protocol for 12 minutes achieving a peak heart rate of 141 bpm (93% predicted maximal heart rate) with a peak blood pressure 160/64 mmHg and a peak MET capacity of approximately 13.4 MET's. The baseline ECG demonstrated normal sinus rhythm. The peak exercise ECG demonstrated no significant ischemic changes. [There were no cardiac dysrhythmias pretest, during exercise, or recovery]. The functional capacity was considered excellent for age. The patient had no complaint of chest discomfort during exercise or recovery. The examination was discontinued secondary to achieving target heart rate. Impression: 1. Technically adequate (percent predicted maximal heart rate greater than 85%) exercise tolerance test 2. Stress test is negative for exercise-induced chest pain. 3. Stress test test is negative for exercise-induced EKG changes of ischemia. 4. Functional capacity is excellent for age This note was generated with [employer]ation software. It may contain incorrect words, spelling, and punctuation that were not noted in checking the note before signing.
== END | disposition home or self-care (01) ==
LOC: CVS 10:58
PROVIDERS: PCP Family Medicine; Referring Provider Family Medicine; Visit Provider Family Medicine
DX: R06.02 Shortness of breath (principal)
CPT/HCPCS: 93017

== ENCOUNTER 2024-03-20 20:27 | Emergency (ER) | payer OTHER, SELFPAY ==
[2024-03-20 20:30] VITALS: BP 130/83; PULSE 58; RESP 16; TEMP 35.7; O2SAT 98; BMI 25.7
[2024-03-20 20:46] LABS: Absolute Lymphocyte Count 1.41 X10^3/uL (0.83-4.51); Absolute Neutrophil Count 4.5 X10^3/uL (2.0-7.7); Basophil# 0.04 X10^3/uL; Basophil% 0.6 % (0-1); Eosinophil# 0.19 X10^3/uL; Eosinophils% 2.8 % (0-5); Hematocrit 44.8 % (40-54); Hemoglobin 15.7 g/dL (13.0-16.5); Lymphocyte # 1.41 X10^3/ul (0.83-4.51); Lymphocyte % 20.7 % (19-41); Mean Corpuscular Hgb 30.7 pg (27.0-32.0); Mean Corpuscular Volume 87.7 fL (80-94); Mean Platelet Vol. 9.1 fl (6.2-12.0); Monocyte# 0.62 X10^3/uL; Monocyte% 9.1 % (0-10); NRBC Flagged by Analyzer 0 % (0-5); Neutrophil # 4.51 X10^3/uL (2.7-7.7); Neutrophil % 66.1 % (47-70); Platelet Count 211 K/mm3 (150-450); RBC Distribution Width CV 13.2 % (11.6-14.6); RBC Distribution Width SD 42.1 fl (35.1-43.9); Red Blood Count 5.11 M/mm3 (4.6-6.2); White Blood Count 6.8 K/mm3 (4.4-11.0)
[2024-03-20 20:55] LABS: Mucous, Urine 0 SEEN /hpf (<or=2+); Squamous Epithelial Cells - UA 0 SEEN /hpf (0-5)
[2024-03-20 20:59] LABS: Color, Urine Yellow (Yellow); Glucose, Dipstick Normal (Normal); Ketone-Dipstick Negative (Negative); Leukocyte Esterase-Dipstick 25 /ul (Negative); Nitrite-Dipstick Negative (Negative); Occult Blood-Urine 10 /ul (Negative); Protein-Dipstick 30 mg/dl (Negative); Specific Gravity, Urine 1.025 (1.002-1.030); Urine Bilirubin Dipstick Negative (Negative); Urine Clarity Clear (Clear); Urine Urobilinogen Normal (Normal)
[2024-03-20 21:07] LABS: ALB/GLOB Ratio 1.1 RATIO (0.9-2.4); AST(SGOT) 24 U/L (15-37); Alanine Aminotransfer ALT/SGPT 27 U/L (16-61); Albumin, Serum 3.7 g/dL (3.2-5.0); Alkaline Phosphatase 76 U/L (45-117); Anion Gap 2 (5-15); BUN 24 mg/dL (7-18); BUN/Creat Ratio 21.2 RATIO (10-20); Calcium,Total 8.9 mg/dL (8.5-10.1); Chloride 109 mmol/L (98-107); Creatinine, Serum 1.13 mg/dL (0.70-1.30); EST Glomerular Filtration Rate 68 mL/min (>60); Est Glom Filt Rate - Afr Amer 83 mL/min (>60); Estimated Creatinine Clearance 65.71 ml/min; Globulin 3.3 g/dL (2.2-4.2); Glucose 124 mg/dL (74-106); Sodium Level 138 mmol/L (136-145)
[2024-03-20 21:09] LABS: Bacteria RARE /hpf (None Seen); Red Blood Cells-Urine 0-5 SEEN /hpf (0-5); White Blood Cells 0-5 SEEN /hpf (0-5)
[2024-03-20 23:29] VITALS: BP 141/88; PULSE 48; RESP 16; O2SAT 98
--- NOTE | 2024-03-21 00:45 | CT_ITS ---
We are attempting to reach an attending provider to discuss findings. An addendum with communication details will be sent when the communication is complete. EXAM: CT ABDOMEN AND PELVIS WITHOUT INTRAVENOUS CONTRAST CLINICAL INDICATION: flank pain TECHNIQUE: Helically acquired images were obtained of the abdomen and pelvis without intravenous contrast. This CT exam was performed using one or more of the following dose reduction techniques: automated exposure control, adjustment of the mA and/or kV according to patient size, and/or use of iterative reconstruction technique. RADIATION DOSE: CTDIvol = 7.97 mGy, DLP = 446.09 mGy-cm COMPARISON: 11/11/2015. FINDINGS: LOWER THORAX: Unremarkable. Lung bases are clear. No cardiomegaly. No significant pericardial effusion. ABDOMEN: LIVER: Unremarkable. Homogeneous. GALLBLADDER AND BILE DUCTS: Unremarkable. No calcified gallstones. No gallbladder distention or wall edema. No intra- or extrahepatic biliary ductal dilation. PANCREAS: Unremarkable. No focal cystic mass. SPLEEN: Unremarkable. Normal size without focal cystic or solid mass. ADRENALS: Unremarkable. No nodules. KIDNEYS AND URETERS: Unremarkable. Normal renal size and position. No hydronephrosis. STOMACH AND BOWEL: Unremarkable. No stomach or bowel distention. No focal inflammatory change. PELVIS: APPENDIX: Normal appendix. BLADDER: Unremarkable. REPRODUCTIVE: Unremarkable as visualized. No mass. ABDOMEN and PELVIS: INTRAPERITONEAL SPACE: Unremarkable. No ascites or other fluid collection. No free air. BONES/JOINTS: Left total hip arthroplasty. Components appear well seated. No suspicious lytic or blastic abnormality. SOFT TISSUES: Dense enlargement of the right iliacus muscle with associated mild dense status stranding in the right retroperitoneum suggesting hemorrhage in the right iliacus muscle and retroperitoneal hemorrhage. No discrete abdominal or pelvic wall hernia. VASCULATURE: Unremarkable. Abdominal aorta is non-dilated. LYMPH NODES: Unremarkable. No enlarged lymph nodes. CT/Abdomen/Pelvis without Cont IMPRESSION: 1. Dense enlargement of the right iliacus muscle with associated mild dense status stranding in the right retroperitoneum suggesting hemorrhage in the right iliacus muscle and retroperitoneal hemorrhage. 2. Left total hip arthroplasty. Components appear well seated. Electronically Signed: Eder Garcia MD at 1:30 EDT ,
[2024-03-21 01:00] VITALS: BP 122/85; PULSE 55; RESP 16; O2SAT 98
[2024-03-21 01:07] LABS: D-Dimer Quantitative (DVT/PE) 0.27 FEU/ug/m (0.27-0.49)
[2024-03-21 02:08] LABS: Absolute Neutrophil Count 4.5 X10^3/uL (2.0-7.7); Basophil# 0.04 X10^3/uL; Basophil% 0.6 % (0-1); Eosinophil# 0.19 X10^3/uL; Eosinophils% 2.7 % (0-5); Hematocrit 41.8 % (40-54); Hemoglobin 14.6 g/dL (13.0-16.5); Lymphocyte % 22.5 % (19-41); Mean Corp Hgb Conc 34.9 g/dL (32-36); Mean Corpuscular Hgb 30.5 pg (27.0-32.0); Mean Corpuscular Volume 87.4 fL (80-94); Mean Platelet Vol. 9.1 fl (6.2-12.0); Monocyte% 9.8 % (0-10); NRBC Flagged by Analyzer 0 % (0-5); Neutrophil # 4.52 X10^3/uL (2.7-7.7); Neutrophil % 63.6 % (47-70); Platelet Count 191 K/mm3 (150-450); RBC Distribution Width CV 13.1 % (11.6-14.6); RBC Distribution Width SD 41.7 fl (35.1-43.9); Red Blood Count 4.78 M/mm3 (4.6-6.2); White Blood Count 7.1 K/mm3 (4.4-11.0)
--- OUTSIDE RECORDS SUMMARY | 2024-03-21 02:08 | XMS RPT_ITS | CCD ---
Author Organization [facility] Care Team Providers Care Investigator Welfare Name Role Phone Trevor CHI, Allan Alaniz Primary Care Provider Unav ailable Unavailable Primary Care Provider Jane Travis MD, Salinas Lambert Primary Care Provider JOSUE VASQUEZ Admitting Unavailab JOSUE Lynn Attending Unavailab tata TRAVIS, SALINAS Lambert Primary Care Unavailable ANGY, SALINAS Lambert Primary Care Unavailable NORA NORIEGA Attending Unavailab le SELF, SELF Referring Unavailable ANGY, SALINAS Lambert Primary Care Unavailable NORA NORIEGA Attending Unavailab le NORA NORIEGA Referring Unavailab le ANGY, SALINAS Lambert Primary Care Unavailable NORA NORIEGA Referring Unavailab JOSUE Lynn Attending Unavailab JOSUE Lynn Attending Unavailab JOSUE Lynn Referring Unavailab le ANGY, SALINAS Lambert Primary Care Unavailable TEODORA ERWIN Primary Care Unavailable JOSUE VASQUEZ Referring Unavailab ARASELI Hong Attending Unavailable Allergies Allergy Classification Reported Allergen(s) Allergy Type Date of Onset Reaction(s) Facility (10 sources) cyclobenzaprine Drug Allergy 11-15-2016 [facility] (10 sources) Ketorolac Drug Allergy 11-15-2016 Swelling [facility] (10 sources) meloxicam Drug Allergy 11-15-2016 Swelling [facility] (10 sources) Orphenadrine Drug Allergy 11-15-2016 Swelling [facility] (10 sources) Penicillin G Drug Allergy 10-15-2009 Rash [facility] Work Phone: (10 sources) Triamcinolone Drug Allergy 11-15-2016 Swelling [facility] Medications Current Medications Medication Drug Class(es) Dates Sig (Normalized) Sig (Original) acetaminophen 325 mg oral tablet (10 sources) take 1 tablet by mouth every four hours acetaminophen 325 MG tablet Take 1 tablet by mouth every 4 hours. Active ARIPiprazole 2 mg oral tablet (1 source) Atypical Antipsychotic Start: 04-08-2016 take 1 tablet by mouth once daily ARIPiprazole (ABILIFY) 2 MG tablet Take 2 mg by mouth nightly. 0 04/08/2016 Active 24 hr buPROPion hydrochloride 300 mg extended release oral tablet (1 source) Aminoketone Start: 04-02-2016 take 1 tablet by mouth once daily in the morning buPROPion (WELLBUTRIN XL) 300 MG 24 hr tablet Take 300 mg by mouth every morning. 0 04/02/2016 Active citalopram 10 mg oral tablet (1 source) Serotonin Reuptake Inhibitor Start: 02-27-2016 take 1 tablet by mouth in the morning citalopram (CELEXA) 10 MG tablet 1 TABLET BY MOUTH IN THE MORNING 0 02/27/2016 Active fexofenadine hydrochloride 180 mg oral tablet (1 source) Histamine-1 Receptor Antagonist take 1 tablet by mouth once daily fexofenadine (CARINE) 180 MG tablet Take 180 mg by mouth daily. 0 Active losartan potassium 50 mg oral tablet (10 sources) Angiotensin 2 Receptor Eliot losartan 50 MG PO TABS daily. Active metoprolol tartrate 25 mg oral tablet (10 sources) beta-Adrenergic Eliot take 1 tablet by mouth once daily metoprolol 25 MG tab regular release Take 1 tablet by mouth daily. Active rivaroxaban 20 mg oral tablet (10 sources) Factor Xa Inhibitor Start: 11-10-2016 XARELTO 20 MG daily.. 11/10/2016 Active Completed/Discontinued Medications Medication Drug Class(es) Dates Sig (Normalized) Sig (Original) 2 ml sodium hyaluronate 15 mg/ml prefilled syringe (8 sources) Start: 03-09-2023 End: 03-09-2023 Hyaluronan (ORTHOVISC) injection 30 mg Start: 02-23-2023 End: 02-23-2023 Hyaluronan (ORTHOVISC) injec tion 30 mg Start: 02-16-2023 End: 02-16-2023 Hyaluronan (ORTHOVISC) injec tion 30 mg Mometasone (10 sources) Corticosteroid MOMETASONE FUROA TE NA Indications: Complete tear of right rotator cuff , Essential hypertension , Gastroesophageal reflux disease with esophagitis by Nasal route as needed.. Active MOMETASONE FUROA TE NA Indications: Complete tear of right rotator cuff , Essential hypertension , Gastroesophageal reflux disease with esophagitis by Nasal route as needed.. 0 Active omeprazole 40 mg delayed release oral capsule (10 sources) Proton Pump Inhibitor take 1 capsule by mouth once daily omeprazole [address] Indications: Complete tear of right rotator cuff , Essential hypertension , Gastroesophageal reflux disease with esophagitis Take 1 capsule by mouth daily. Active Problems Active Problems Problem Classification Problem Date Documented Date Episodic/Chronic Esophageal disorders (10 sources) Gastroesophageal reflux disease; Translations: [Gastro-esophageal reflux disease without esophagitis] Onset: 01-08-2013 01-08-2013 Chronic Essential hypertension (10 sources) Hypertensive disorder; Translations: [Essential (primary) hypertension] Onset: 01-08-2013 01-08-2013 Chronic Osteoarthritis (9 sources) Osteoarthritis of left knee joint; Translations: [Unilateral primary osteoarthritis, left knee] Onset: 05-06-2024 01-05-2023 Chronic Other non-traumatic joint disorders (7 sources) Pain in left knee; Translations: [Pain in joint, lower leg] Onset: 02-21-2024 01-05-2023 Episodic Residual codes; unclassified (1 source) Amnesia; Translations: [Other amnesia] Episodic Transient cerebral ischemia (1 source) Transient global amnesia; 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] Chronic Past or Other Problems Problem Classification Problem Date Documented Da te Episodic/Chronic Allergic reactions (10 sources) H/O: non-drug allergy; Translations: [Allergy status to unspecified drugs, medicaments and biological substances status] Onset: 01-08-2013 01-08-2013 Episodic Other connective tissue disease (10 sources) Full thickness rotator cuff tear; Translations: [Complete rotator cuff tear or rupture of right shoulder, not specified as traumatic] Onset: 11-15-2016 11-15-2016 Episodic Other connective tissue disease (10 sources) Nontraumatic complete rupture of rotator cuff of left shoulder; Translations: [Complete rotator cuff tear or rupture of left shoulder, not specified as traumatic] Onset: 10-02-2019 10-02-2019 Episodic Other screening for suspected conditions (not mental disorders or infectious disease) (10 sources) CT of head abnormal; Translations: [Abnormal findings on diagnostic imaging of skull and head, not elsewhere classified] Onset: 01-08-2013 01-08-2013 Episodic Results Test Name Value Interpretation Reference Range Facility No Panel Informationon 02-20 IMPRESSION: Leg length measurements as above. OLOGY EXAM: XR BONE LENGTH STUDY, 02/21/2024 08:11 AM COMPARISON: No prior studies available for comparison. CLINICAL INDICATIONS: , pain FINDINGS: Bilateral leg length study performed on a long cassette. The femur was measured from the femoral head to the articular surface of the medial femoral condyle. The right side measures approximately 54.3 cm. The left side measures approximately 53.4 cm. The right tibia was measured from the articular surface of the medial tibial plateau to the tibial plafond excluding the medial malleolar regions. The right side measures 42.8 cm. The left side measures 42.6 cm. Total right leg length excluding the medial malleolar region measures 97.1 cm. Total left leg length excluding the medial malleolar region measures 95.9 cm. RADIOLOGY Shad Frank MD - 02/21/2024 EXAM: XR BONE LENGTH STUDY, 02/21/2024 08:11 AM COMPARISON: No prior studies available for comparison. CLINICAL INDICATIONS: , pain FINDINGS: Bilateral leg length study performed on a long cassette. The femur was measured from the femoral head to the articular surface of the medial femoral condyle. The right side measures approximately 54.3 cm. The left side measures approximately 53.4 cm. The right tibia was measured from the articular surface of the medial tibial plateau to the tibial plafond excluding the medial malleolar regions. The right side measures 42.8 cm. The left side measures 42.6 cm. Total right leg length excluding the medial malleolar region measures 97.1 cm. Total left leg length excluding the medial malleolar region measures 95.9 cm. IMPRESSION IMPRESSION: Leg length measurements as above. [facility] Radiology Study observation (narrative) [facility] No Panel InformationOrdered By: Shad Frank on 02-21-2024 [facility] Work Phone: XR BONE LENGTH STUDYon 02-20 XR BONE LENGTH STUDY EXAM: XR BONE LENGT H STUDY, 02/21/2024 08:11 AM COMPARISON: No prior studies available for comparison. CLINICAL INDICATIONS: , pain FINDINGS: Bilateral leg length study performed on a long cassette. The femur was measured from the femoral head to the articular surface of the medial femoral condyle. The right side measures approximately 54.3 cm. The left side measures approximately 53.4 cm. The right tibia was measured from the articular surface of the medial tibial plateau to the tibial plafond excluding the medial malleolar regions. The right side measures 42.8 cm. The left side measures 42.6 cm. Total right leg length excluding the medial malleolar region measures 97.1 cm. Total left leg length excluding the medial malleolar region measures 95.9 cm. IMPRESSION: Leg length measurements as above. Normal [facility] XR KNEE LEFT 3+ VIEWS W/ ROE ATERAL STANDING 1 VIEWon 01-25-2024 XR KNEE LEFT 3+ VIEWS W/ BILATERAL STANDING 1 VIEW EXAM: XR KNEE LEFT 3+ VIEWS W/ BILATERAL STANDING 1 VIEW, 01/25/2024 14:35 PM COMPARISON: XR knee left January 05, 2023 CLINICAL INDICATIONS: left knee pain RELEVANT CLINICAL HISTORY: M25.562:Left knee pain, unspecified chronicity PA weight bearing, flexed knee (notch), sunrise patella, 45 degree lateral knee, AP bilateral standing. Please add 30 mm calibration marker ball.; FINDINGS: 4 images obtained. Effusion: There is a joint effusion present. Soft Tissue: Prepatellar soft tissue swelling is evident. Bone: Tricompartmental osteophytes. Small well-corticated ossicles along the medial margin of the joint compartment. Joint: Tricompartmental joint space narrowing, most severe in the lateral compartment. Multiple ossified intra-articular bodies along the posterior margin of the joint space. TibFib syndesmosis: The proximal tibiofibular syndesmosis is anatomically aligned. IMPRESSION: 1. Tricompartmental left knee osteoarthritis with joint space narrowing and degenerative changes most pronounced at the lateral compartment. 2. Joint effusion with multiple ossified intra-articular bodies. 3. Evidence of remote injury at the medial collateral ligament. I personally viewed and interpreted these images and I have reviewed and approved this report. Normal [facility] XR Knee - bilateral Views W standingon 01-25-2024 IMPRESSION: 1. Tricompartmental left knee osteoarthritis with joint space narrowing and degenerative changes most pronounced at the lateral compartment. 2. Joint effusion with multiple ossified intra-articular bodies. 3. Evidence of remote injury at the medial collateral ligament. I personally viewed and interpreted these images and I have reviewed and approved this report. OLOGY EXAM: XR KNEE LEFT 3+ VIEWS W/ BILATERAL STANDING 1 VIEW, 01/25/2024 14:35 PM COMPARISON: XR knee left January 05, 2023 CLINICAL INDICATIONS: left knee pain RELEVANT CLINICAL HISTORY: M25.562:Left knee pain, unspecified chronicity PA weight bearing, flexed knee (notch), sunrise patella, 45 degree lateral knee, AP bilateral standing. Please add 30 mm calibration marker ball.; FINDINGS: 4 images obtained. Effusion: There is a joint effusion present. Soft Tissue: Prepatellar soft tissue swelling is evident. Bone: Tricompartmental osteophytes. Small well-corticated ossicles along the medial margin of the joint compartment. Joint: Tricompartmental joint space narrowing, most severe in the lateral compartment. Multiple ossified intra-articular bodies along the posterior margin of the joint space. TibFib syndesmosis: The proximal tibiofibular syndesmosis is anatomically aligned. RADIOLOGY Jhonny Haji MD - 01/25/2024 EXAM: XR KNEE LEFT 3+ VIEWS W/ BILATERAL STANDING 1 VIEW, 01/25/2024 14:35 PM COMPARISON: XR knee left January 05, 2023 CLINICAL INDICATIONS: left knee pain RELEVANT CLINICAL HISTORY: M25.562:Left knee pain, unspecified chronicity PA weight bearing, flexed knee (notch), sunrise patella, 45 degree lateral knee, AP bilateral standing. Please add 30 mm calibration marker ball.; FINDINGS: 4 images obtained. Effusion: There is a joint effusion present. Soft Tissue: Prepatellar soft tissue swelling is evident. Bone: Tricompartmental osteophytes. Small well-corticated ossicles along the medial margin of the joint compartment. Joint: Tricompartmental joint space narrowing, most severe in the lateral compartment. Multiple ossified intra-articular bodies along the posterior margin of the joint space. TibFib syndesmosis: The proximal tibiofibular syndesmosis is anatomically aligned. IMPRESSION IMPRESSION: 1. Tricompartmental left knee osteoarthritis with joint space narrowing and degenerative changes most pronounced at the lateral compartment. 2. Joint effusion with multiple ossified intra-articular bodies. 3. Evidence of remote injury at the medial collateral ligament. I personally viewed and interpreted these images and I have reviewed and approved this report. [facility] Radiology Study observation (narrative) [facility] XR Knee - bilateral Views W standingOrdered By: Jhonny Haji on 01-25-2024 [facility] Work Phone: LARGE JOINT/BURSA INJECTION AND/OR ASPIRATION: L kneeon 03-09-2023 VARGHESE Sanchez 03/09/2023 7:54 AM LARGE JOINT/BURSA INJECTION AND/OR ASPIRATION: L knee Date/Time: 03/09/2023 7:30 AM Performed by: VARGHESE Sanchez Authorized by: VARGHESE Sanchez Supporting Documentation Indications: pain and joint swelling Procedure Details: Location: knee - L knee Local Anesthetic: ethyl chloride (cold spray) Needle size: 25 G Approach: medial Medication Verification: I have personally verified and performed the final check of the medication(s) used in this procedure prior to administration. The following items were included during the verification process for medication(s) administered: drug name, strength, volume, expiration, physical integrity and appearance of the medication(s). Medications administered: 30 mg Hyaluronan 30 MG/2ML Patient tolerance: patient tolerated the procedure well with no immediate complications Comments There were no immediate complications. 5 minutes of ice were applied to the injection site . Malvin was advised to modify activities, apply ice later in the day and if needed use [id number] anti-inflammatories for any mild swelling or discomfort.The patient is to follow-up in 6 months or sooner as needed. He is to call the office with any other questions or concerns in the interim. Consent: Consent was obtained prior to the procedure after discussion of the risks, benefits and alternatives, and expected outcomes were discussed with the patient. The possibilities of reaction to medication, bleeding, infection, the need for additional procedures, failure to diagnosis a condition, and creating a complication requiring operation were discussed with the patient. The patient concurred with the proposed plan, giving consent. Preparation: Patient was prepped in the usual sterile fashion. The patient was prepped with Betadine. [facility] Radiology Study observation (narrative) [facility] No Panel Informationon 02-23 Lori Nguyễn PAC 02/23/2023 11:14 AM LARGE JOINT/BURSA INJECTION AND/OR ASPIRATION: L knee Date/Time: 02/23/2023 7:45 AM Performed by: Lori Nguyễn PAC Authorized by: VARGHESE Sanchez Supporting Documentation Indications: pain and joint swelling Procedure Details: Location: knee - L knee Local Anesthetic: ethyl chloride (cold spray) Needle size: 25 G Approach: medial Medication Verification: I have personally verified and performed the final check of the medication(s) used in this procedure prior to administration. The following items were included during the verification process for medication(s) administered: drug name, strength, volume, expiration, physical integrity and appearance of the medication(s). Medications administered: 30 mg Hyaluronan 30 MG/2ML Patient tolerance: patient tolerated the procedure well with no immediate complications Comments There were no immediate complications. 5 minutes of ice were applied to the injection site . Malvin was advised to modify activities, apply ice later in the day and if needed use [id number] anti-inflammatories for any mild swelling or discomfort.The patient is to follow-up in 1 week or sooner as needed. He is to call the office with any other questions or concerns in the interim. Consent: Consent was obtained prior to the procedure after discussion of the risks, benefits and alternatives, and expected outcomes were discussed with the patient. The possibilities of reaction to medication, bleeding, infection, the need for additional procedures, failure to diagnosis a condition, and creating a complication requiring operation were discussed with the patient. The patient concurred with the proposed plan, giving consent. Preparation: Patient was prepped in the usual sterile fashion. The patient was prepped with Betadine. [facility] Radiology Study observation (narrative) [facility] LARGE JOINT/BURSA INJECTION AND/OR ASPIRATION: L kneeon 02-16-2023 VARGHESE Sanchez 02/16/2023 12:19 PM LARGE JOINT/BURSA INJECTION AND/OR ASPIRATION: L knee Date/Time: 02/16/2023 7:45 AM Performed by: VARGHESE Sanchez Authorized by: VARGHESE Sanchez Supporting Documentation Indications: pain and joint swelling Procedure Details: Location: knee - L knee Local Anesthetic: ethyl chloride (cold spray) Needle size: 25 G Approach: medial Medication Verification: I have personally verified and performed the final check of the medication(s) used in this procedure prior to administration. The following items were included during the verification process for medication(s) administered: drug name, strength, volume, expiration, physical integrity and appearance of the medication(s). Medications administered: 30 mg Hyaluronan 30 MG/2ML Patient tolerance: patient tolerated the procedure well with no immediate complications Comments There were no immediate complications. 5 minutes of ice were applied to the injection site . Malvin was advised to modify activities, apply ice later in the day and if needed use [id number] anti-inflammatories for any mild swelling or discomfort.The patient is to follow-up in 1 week or sooner as needed. He is to call the office with any other questions or concerns in the interim. Consent: Consent was obtained prior to the procedure after discussion of the risks, benefits and alternatives, and expected outcomes were discussed with the patient. The possibilities of reaction to medication, bleeding, infection, the need for additional procedures, failure to diagnosis a condition, and creating a complication requiring operation were discussed with the patient. The patient concurred with the proposed plan, giving consent. Preparation: Patient was prepped in the usual sterile fashion. The patient was prepped with Betadine. [facility] Radiology Study observation (narrative) [facility] XR Knee - bilateral Views W standingon 01-05-2023 IMPRESSION: Tricompartmental osteoarthritis most severe in the lateral compartment with progression. Multiple intra-articular bodies. OLOGY EXAM: XR KNEE LEFT WITH BILATERAL STANDING 4 VIEWS, 01/05/2023 13:57 PM COMPARISON: December 27, 2018 CLINICAL INDICATIONS: Pain RELEVANT CLINICAL HISTORY: M25.562:Left knee pain, unspecified chronicity PA weight bearing, flexed knee (notch), sunrise patella, 45 degree lateral knee, AP bilateral standing; FINDINGS: 4 images obtained. Effusion: A joint effusion is noted. Soft Tissue: There is anterior soft swelling. A Junior-Stieda lesion is redemonstrated. Bone: No acute osseous abnormality. Joint: Osteoarthritis manifested by osteophytosis and joint space narrowing most severe in the lateral compartment. There is interval progression since the prior examination. Multiple intra-articular bodies are redemonstrated. TibFib syndesmosis: The proximal tibiofibular syndesmosis is anatomically aligned. RADIOLOGY Kaushik Stevens MD - 01/05/2023 EXAM: XR KNEE LEFT WITH BILATERAL STANDING 4 VIEWS, 01/05/2023 13:57 PM COMPARISON: December 27, 2018 CLINICAL INDICATIONS: Pain RELEVANT CLINICAL HISTORY: M25.562:Left knee pain, unspecified chronicity PA weight bearing, flexed knee (notch), sunrise patella, 45 degree lateral knee, AP bilateral standing; FINDINGS: 4 images obtained. Effusion: A joint effusion is noted. Soft Tissue: There is anterior soft swelling. A Junior-Stieda lesion is redemonstrated. Bone: No acute osseous abnormality. Joint: Osteoarthritis manifested by osteophytosis and joint space narrowing most severe in the lateral compartment. There is interval progression since the prior examination. Multiple intra-articular bodies are redemonstrated. TibFib syndesmosis: The proximal tibiofibular syndesmosis is anatomically aligned. IMPRESSION IMPRESSION: Tricompartmental osteoarthritis most severe in the lateral compartment with progression. Multiple intra-articular bodies. [facility] Radiology Study observation (narrative) [facility] XR Knee - bilateral Views W standingOrdered By: Kaushik Stevens on 01-05-2023 [facility] Work Phone: Cele 04-27-2021 CNOV Office Visit (NEURMM) MALVIN ROBLERO ([id number]) 1955 M Date Time Provider Department 04/27/21 4:30 PM YOSVANY DENNIS During your visit today, we recorded the following information about you: Pulse Blood pressure Weight Height 52/minute 119/72 91.6 kg 1.803 m Yosvany Dennis MD 05/08/2021 11:02 PM Signed NEUROLOGY follow up visit Interval history Booster Vaccine Memory is good with no recurrent episodes of confusion migriane breakthrough occasionally 2 months ago had last episode of migriane Took tylenol but cannot use NSAI No autonmic symptoms headache can be debilitating Takes 4 tylenol and goes to sleep ,by next morning he is ok Discussed future plans if headache increases in frequency IF BREAKTHORUGH HEADACHE will give nurtec Cannot get triptans ASSESSMENT: 65 year old male with episode of TGA ,was hospitalized in [place] and stroke work up Completed with no acute lesion seen on MRI. PLAN: No orders found for this visit on 04/27/21. STROKE PREVENTION Discussed with the patient ---> Follow-up: 1-2 months, Tests results will be discussed in the follow up appointment Medications side effects explained and discussed with the patient . CC: Episode of confusion HxCC: 65 year old male , who presents for evaluation of TGA after being hospitalized in [place]. October 27 and diagnosed with TGA That morning he went to the basement after Treadmill exercise Lost memory of everything after finishing the exercises , He couldn't remember any of the morning events got worried and took him ER where complete stroke work up done Patient doesn't remember any of these events until going to hallway of the hospital floor After admission his memory came back but couldn't remember any of that morning events He had an mri brain and EEG Sister had the same thing happen to her after stressful event ,was also diagnosed with TGA Denies headache during before or after this event Mother has dementia ,he is worried that this may be first sign of dementia On further neurologic questioning, the patient denies new headaches, neck or back pain. No new focal weakness, numbness or paresthesias. No new blurry, double or loss of vision. No new loss of hearing, vertigo, or tinnitus. No dysarthria, dysphonia or dysphagia. No new imbalance, frequent falls or incoordination. No bowel or bladder incontinence. No saddle anesthesia. No muscular atrophy or fasciculations. RECENT LABS: No results found for: WBC, RBC, HB, HCT, MCV, MCH, MCHC, RDWCV, PLT, MPV Last BMP (Basic Metabolic Panel) No results found for: NA No results found for: K No results found for: CHLOR No results found for: CO2 No results found for: BUN No results found for: CREAT No results found for: GLUC No results found for: ANION No results found for: CA TSH Date Value Ref Range Status 04/22/2021 2.530 0.270 - 4.200 uU/mL Final B12: RECENT IMAGING/DIAGNOSTICS: --MRI/MRA/MRV Brain w/wocontrast (): No acute intracranial lesion --MRI Cervical Spine w/wo contrast (/): --EEG PMH: Hypertension No past medical history on file. PSH: No past surgical history on file. CURRENT MEDS: No current facility-administere d medications for this visit. Current Outpatient Medications Medication Sig - losartan (COZAAR) 50 mg tablet Take 50 mg by mouth once daily. - omeprazole (PRILOSEC) 40 mg capsule Take 40 mg by mouth once daily. - rivaroxaban (XARELTO) 20 mg tablet Take 20 mg by mouth once daily. - metoprolol tartrate, short acting, (LOPRESSOR) 25 mg tablet Take 25 mg by mouth twice daily. - mometasone (NASONEX) 50 mcg/actuation nasal spray Use 2 Sprays in the nose once daily. - levoFLOXacin (LEVAQUIN) 500 mg tablet Take 500 mg by mouth once daily. No current facility-administere d medications for this visit. ALLERGIES: ALLERGIES Allergen Reactions - Cyclobenzaprine Swelling throat swelling - Ketorolac Swelling - Meloxicam Swelling - Orphenadrine Swelling - Penicillins Rash - Triamcinolone Swelling FMH: No family history on file. SOCIAL: Social History Tobacco Use - Smoking status: Never Smoker - Smokeless tobacco: Never Used Substance Use Topics - Alcohol use: Never - Drug use: Not on file REVIEW OF SYSTEMS (In addition to HPI): PHYSICAL EXAM: BP 119/72 (BP Site: Right Arm, BP Position: Sitting, BP Cuff Size: Large Adult) Pulse (!) 52 Ht 180.3 cm (5' 11 ) Wt 91.6 kg (202 lb) SpO2 99% BMI 28.17 kg/m? GEN: Alert. NAD. Normal affect. Cooperative. HEENT: No icterus. Normal mucosa. No temporal artery tenderness. Fundoscopic exam unremarkable. NECK/BACK: No meningismus. No lymphadenopathy. No significant paraspinal neck or shoulder musculature tenderness or hypertonicity. No spinous process tenderness. CV: RRR. No M/G/R/C. No carotid bruits. RESP: CTA b/ (more content not included)... Normal [facility] Methylmalonic Acidon 021 Methylmalonic Acid 198 nmol/L Normal [phone] [facility] Comment on above: Result Comment: This test was developed and its performance characteristics determined by [facility] [place] ([facility]). It has not been cleared or approved by the FDA. [facility] is regulated under CLIA as qualified to perform high complexity testing. This test is used for clinical purposes. It should not be regarded as investigational or for research. Performed By: #### T RAVI ALCANTAR, B12 #### [facility] 5 CUPS and some sugar [address], [place] [address] TSHon 04-22-2021 TSH Qn 2.530 m[IU]/L Normal 0.270-4.200 [facility] Comment on above: Performed By: #### T RAVI ALCANTAR, B12 #### [facility] [address], [place] [address] Vitamin B12on 04-22-2021 Cobalamin (Vitamin B12) [Mass/Vol] 712 pg/mL Normal 232-1245 [facility] Comment on above: Performed By: #### T SH, MMA, B12 #### [facility] [address] [place], [place] [address] CNOVon 12-24-2020 CNOV Office Visit (NEURMM) MALVIN ROBLERO ([id number]) 1955 M Date Time Provider Department 12/24/20 8:00 AM YOSVANY DENNIS During your visit today, we recorded the following information about you: Pulse Blood pressure Weight Height 61/minute 116/80 87.7 kg 1.791 m Yosvany Dennis MD 01/04/2021 7:20 PM Signed NEUROLOGY CONSULT NOTE Please leave note in paper medical record. Previous records (physician notes, laboratory reports, and radiology reports) and imaging studies were reviewed and summarized as below. My recommendations will be communicated back to the patient's consulting physician(s) by way of shared medical record. REFERRING PHYSICIAN: Salinas Travis MD [address] [place] [address] [address] [phone] Accompanied by: Self ASSESSMENT: 65 year old male with episode of TGA ,was hospitalized in [place] and stroke work up Completed with no acute lesion seen on MRI. PLAN: Office Visit on 12/24/20 - VITAMIN B12 BLOOD - TSH BLD - METHYLMALONIC ACID STROKE PREVENTION Discussed with the patient ---> Follow-up: 1-2 months, Tests results will be discussed in the follow up appointment Medications side effects explained and discussed with the patient . CC: Episode of confusion HxCC: 65 year old male , who presents for evaluation of TGA after being hospitalized in [place]. October 27 and diagnosed with TGA That morning he went to the basement after Treadmill exercise Lost memory of everything after finishing the exercises , He couldn't remember any of the morning events got worried and took him ER where complete stroke work up done Patient doesn't remember any of these events until going to hallway of the hospital floor After admission his memory came back but couldn't remember any of that morning events He had an mri brain and EEG Sister had the same thing happen to her after stressful event ,was also diagnosed with TGA Denies headache during before or after this event Mother has dementia ,he is worried that this may be first sign of dementia On further neurologic questioning, the patient denies new headaches, neck or back pain. No new focal weakness, numbness or paresthesias. No new blurry, double or loss of vision. No new loss of hearing, vertigo, or tinnitus. No dysarthria, dysphonia or dysphagia. No new imbalance, frequent falls or incoordination. No bowel or bladder incontinence. No saddle anesthesia. No muscular atrophy or fasciculations. RECENT LABS: No results found for: WBC, RBC, HB, HCT, MCV, MCH, MCHC, RDWCV, PLT, MPV Last BMP (Basic Metabolic Panel) No results found for: NA No results found for: K No results found for: CHLOR No results found for: CO2 No results found for: BUN No results found for: CREAT No results found for: GLUC No results found for: ANION No results found for: CA No results found for: TSH B12: RECENT IMAGING/DIAGNOSTICS: --MRI/MRA/MRV Brain w/wocontrast (): No acute intracranial lesion --MRI Cervical Spine w/wo contrast (/): --EEG PMH: Hypertension No past medical history on file. PSH: No past surgical history on file. CURRENT MEDS: No current facility-administere d medications for this visit. Current Outpatient Medications Medication Sig - losartan (COZAAR) 50 mg tablet Take 50 mg by mouth once daily. - omeprazole (PRILOSEC) 40 mg capsule Take 40 mg by mouth once daily. - rivaroxaban (XARELTO) 20 mg tablet Take 20 mg by mouth once daily. - metoprolol tartrate, short acting, (LOPRESSOR) 25 mg tablet Take 25 mg by mouth twice daily. - levoFLOXacin (LEVAQUIN) 500 mg tablet Take 500 mg by mouth once daily. - mometasone (NASONEX) 50 mcg/actuation nasal spray Use 2 Sprays in the nose once daily. No current facility-administere d medications for this visit. ALLERGIES: ALLERGIES Allergen Reactions - Cyclobenzaprine Swelling throat swelling - Ketorolac Swelling - Meloxicam Swelling - Orphenadrine Swelling - Penicillins Rash - Triamcinolone Swelling FMH: No family history on file. SOCIAL: Social History Tobacco Use - Smoking status: Never Smoker - Smokeless tobacco: Never Used Substance Use Topics - Alcohol use: Never - Drug use: Not on file REVIEW OF SYSTEMS (In addition to HPI): Review of Systems Constitutional: Negative Eyes: Negative Hent Positive for Tinnitus Cardiovascular: Negative Respiratory Positive for Cough and Snoring GI: Negative : Negative Endocrine: Negative Musculoskeletal: Negative Integumentary: Negative Heme/Lymph: Negative Allergy/Immunologic Positive for Nasal Congestion Neurologic Positive for Memory Problems and Headache Psychiatric: Negative Patient's Review of Systems has been reviewed with the patient and updated as appropriate. PHYSICAL EXAM: BP 116/80 (BP Site: Right Arm, BP Position: Sitting, BP Cuff Size: (more content not included)... Normal [facility] CNPNon 12-23-2020 CNPN Telephone (NEURMM) MALVIN ROBLERO ([id number]) 1955 M Date Time Provider Department 12/23/20 YOSVANY DENNIS NEURMM During your visit today, we recorded the following information about you: Consuelo Pina 12/23/2020 2:35 PM Signed Received Medical Records via: Fax From Office Name: [facility] (Medical/Clinical) or [phone] (Business/Insurance) Date of Visit: Office Visit: 12/18/2020, ED Visit: 10/27/2020, Office Visit: 11/04/2020, Office Visit: 09/16/2020, Labs 10/28/2020, CT Brain WO: 10/27/2020, MRA Head WO: 10/27/2020, MR Head WO: 10/27/2020, MRA Neck WO/W: 10/27/2020,ECHO: 10/27/2020, 12 Lead EK10/27/2020 Office Note From Physician:Dr. Salinas Travis and [facility] Placed all records in file folder for upcoming office visit, December 24, [address] Dennis for review. Copy of note in file folder for scanning. Consuelo Pina Allergies As of Date: 12/23/2020 (Not on File) Date Reviewed: Never Reviewed Reason for Visit: Received Outside Medical Records [[id number]] Problem List As Of Date: 12/23/2020 (None) Encounter Status:Closed by CONSUELO PINA on 12/23/20 Normal [facility] Vital Signs Date Time Vital Sign Value Performing Clinician Faci lity 02-21-2024 08:40-0400 Body height 182.9 cm Josue Vasquez MD Work Phone: [facility] 02-21-2024 08:40-0400 Body mass index (BMI) [Ratio] 24.55 kg/m2 Josue Vasquez MD Work Phone: [facility] 02-21-2024 08:40-0400 Body weight 82.1 kg Josue Vasquez MD Work Phone: [facility] Encounters Encounter Date Encounter Type Care Provider Facility Start: 05-06-2024 Evaluation and management of inpatient JOUSE VASQUEZ Facility:[facility] Start: 03-12-2024 ambulatory [facility] Facility:[facility] Start: 03-12-2024 Encounter for other preprocedural examination ARASELI CERVANTESSERA Facility:[facility] Start: 02-21-2024 End: 02-21-2024 Office outpatient new 60 minutes Josue Vsaquez MD Work Phone: [facility] Comment on above: Primary osteoarthrit is of left knee (Primary Dx); Left knee pain, unspecified chronicity Start: 02-21-2024 End: 02-21-2024 Subsequent hospital visit by physician Josue Vasquez MD Work Phone: Imaging [facility] Comment on above: Arrived Start: 02-21-2024 ambulatory JOSUE Leo acility:[facility] Start: 01-25-2024 End: 01-25-2024 Office outpatient visit 15 minutes Nora Noriega MD Work Phone: [facility] Comment on above: Left knee pain, unsp ecified chronicity (Primary Dx); Primary osteoarthritis of left knee Start: 01-25-2024 ambulatory SALINAS TRAVIS Facility :[facility] Start: 01-25-2024 End: 01-25-2024 Subsequent hospital visit by physician Nora Noriega MD Work Phone: Imaging [facility] Comment on above: Arrived Start: 03-09-2023 End: 03-09-2023 Patient encounter procedure Lori A Backs PAC Work Phone: [facility] Comment on above: Osteoarthritis of le ft knee, unspecified osteoarthritis type (Primary Dx) Start: 02-23-2023 End: 02-23-2023 Patient encounter procedure Lori A Backs PAC Work Phone: [facility] Comment on above: Osteoarthritis of le ft knee, unspecified osteoarthritis type (Primary Dx) Start: 02-16-2023 End: 02-16-2023 Patient encounter procedure Lori A Backs PAC Work Phone: [facility] Comment on above: Osteoarthritis of le ft knee, unspecified osteoarthritis type (Primary Dx) Start: 01-05-2023 End: 01-05-2023 Office outpatient new 30 minutes Nora Noriega MD Work Phone: [facility] Comment on above: Osteoarthritis of le ft knee, unspecified osteoarthritis type (Primary Dx); Left knee pain, unspecified chronicity Start: 01-05-2023 End: 01-05-2023 Subsequent hospital visit by physician Nora Noriega MD Work Phone: Imaging [facility] [place] Comment on above: Arrived Start: 12-23-2020 End: 12-23-2020 Telephone encounter Yosvany Dennis MD Work Phone: Neurology Comment on above: Received Outside Med ical Records Start: 11-26-2020 End: 11-26-2020 Transcribe Orders Salinas Travis MD Work Phone: [facility] Comment on above: Amnesia (Primary Dx) ; Amnesia, global, transient Procedures Date Procedure Procedure Detail Performing Clinician Start: 02-21-2024 Bone length studies James Vasquez MD Work Phone: Start: 01-25-2024 Radiologic exam knee complete 4/more views Nora Noriega MD Work Phone: Start: 03-09-2023 Arthrocentesis aspir &/inj major jt/bursa w/o us Lori A Backs PAC Work Phone: Start: 02-23-2023 Arthrocentesis aspir &/inj major jt/bursa w/o us Lori A Backs PAC Work Phone: Start: 02-16-2023 Arthrocentesis aspir &/inj major jt/bursa w/o us Lori A Backs PAC Work Phone: Start: 01-05-2023 Radiologic exam knee complete 4/more views Nora Noriega MD Work Phone: Plan of Treatment Date Care Activity Detail Author Start: 07-09-2029 Tetanus vaccination TETANUS U [facility] Start: 02-21-2024 End: 02-21-2024 Patient encounter procedure 02/21/2024 8:40 AM EDT Office Visit [facility] [address] [place] [address] Josue Vasquez MD [address] [place], [place] [address] [address] [place] [id number] [facility] Start: 01-21-2024 COVID-19 VACCINE ( season) COVID-19 VACCINE () [facility] Start: 01-21-2024 Influenza vaccination INFLUENZA VACCINE (#1) [facility] Start: 03-09-2023 End: 03-09-2023 Patient encounter procedure 03/09/2023 7:30 AM EDT Office Visit [facility] [address] [place] [address] Lori Nguyễn PAC [address] [place] [address] [facility] Start: 03-02-2023 End: 03-02-2023 Patient encounter procedure 03/02/2023 7:45 AM EDT Office Visit [facility] [address] [place] [address] Lori Nguyễn, PAC [address] [place] [address] [facility] Start: 02-23-2023 End: 02-23-2023 Patient encounter procedure 02/23/2023 7:45 AM EDT Office Visit [facility] [address] [place] [address] Lori Nguyễn PAC [address] [place] [address] [facility] Start: 01-20-2023 COVID-19 VACCINE ( season) COVID-19 VACCINE () [facility] Start: 01-20-2023 Influenza vaccination INFLUENZA VACCINE (#1) [facility] Start: 07-17-2022 COVID-19 VACCINE (5 - Pfizer series) COVID-19 VACCINE (5 - Pfizer series) [facility] Start: 03-16-2021 Pneumococcal vaccination [facility] Start: 01-20-2021 Influenza vaccination [facility] Start: 09-19-2019 ADVANCE DIRECTIVE DISCUSSION ADVANCE DIRECTIVE DISCUSSION [facility] Start: 09-19-2019 Fall risk assessment Falls Risk Assessment [facility] Start: 09-19-2019 PNEUMOVAX AGE 65 AND OVER WITH 5YR LOOKBACK (#1) PNEUMOVAX AGE 65 AND OVER WITH 5YR LOOKBACK (#1) [facility] Start: 2014 RSV VACCINE (1 - 1-dose 60+ series) RSV VACCINE (1 - 1-dose 60+ series) [facility] Start: 2009 PROSTATE CANCER SCREENING DISCUSSION PROSTATE CANCER SCREENING DISCUSSION [facility] Start: 2004 Administration of herpes zoster vaccine Zoster Vaccines (1 of 2) [facility] Start: 2004 Prostate specific antigen measurement PROSTATE CANCER SCREENING DISCUSSION [facility] Start: 2004 Screening for malignant neoplasm of colon [facility] Start: 2004 SHINGRIX VACCINE (1 of 2) SHINGRIX VACCINE (1 of 2) [facility] Start: 2004 Zoster vaccine hzv live for subcutaneous use ZOSTER (SHINGLES) VACCINE (1 of 2) [facility] Start: 09-19-1999 DIABETES SCREEN DIABETES SCREEN [facility] Start: 09-19-1999 Screening for malignant neoplasm of colon COLORECTAL CANCER SCREENING DISCUSSION [facility] Start: 1994 Lipid panel LIPID SCREENING [facility] Start: 1994 Screening for malignant neoplasm of colon [facility] Start: 1989 LIPID SCREEN LIPID SCREEN [facility] Start: 1973 Urine microalbumin profile DTAP,TDAP,TD (1 - Tdap) [facility] Start: 1972 Hepatitis C screening Hepatitis C Screening [facility] Start: 1972 HEPATITIS C SCREENING HEPATITIS C SCREENING [facility] Start: 1966 COVID-19 Vaccine (1) COVID-19 Vaccine (1) [facility] Start: 1966 Depression screening using PHQ-9 (Patient Health Questionnaire 9) score [facility] Start: 1960 Pneumococcal Vaccine: Age 65+ (1 of 2 - PPSV23) Pneumococcal Vaccine: Age 65+ (1 of 2 - PPSV23) [facility] Start: 1957 History and physical examination, annual for health maintenance Wellness Visit [facility] Start: 1954 Hepatitis C screening HEPATITIS C VIRUS SCREENING [facility] Start: 1954 Prostate specific antigen measurement PSA Level [facility] Start: 1954 Tetanus vaccination Tetanus: Every 10yrs [facility] Start: 1954 US scan of abdominal aorta Abdominal Aortic Ultrasound [facility] Arthrp kne condyle&p latu medial&lat compartments ARTHROPLASTY KNEE TOTAL Primary osteoarthritis of left knee [facility] Immunizations Immunization Date Immunization Notes Care Provider Corey [facility] 03-16-2020 influenza virus vaccine, unspecified formulation Nora Noriega MD Work Phone: [facility] Payers Date Payer Category Payer Unknown [facility] [employer] [place] P[employer] [id number] 2020-Present PPO [id number] 2020 Private Health Insurance [employer]INE [employer] [id number] 2020-Present [id number] 2019 Unknown [id number] 2019 Unknown [id number] 2014 Unknown M[employer] S [employer]PER[employer] PPO [id number] 2014-Present [id number] 1954 Unknown [id number] 1955 Unknown [id number] 1955 Unknown [id number] 1954 Unknown [id number] 1955 Unknown [id number] 1955 Unknown [id number] Social History Date Type Detail Facility Start: 09-13-2016 Tobacco smoking status NYIS Current every day smoker [facility] Start: 09-13-2016 End: 02-21-2024 Cigarettes smoked current (pack per day) - Reported [facility] Start: 09-13-2016 Alcohol intake Current drinker of alcohol (finding) [facility] Start: 1955 Sex Assigned At Not on file [facility] Start: 01-08-2013 Tobacco smoking status NYIS Never smoked tobacco [facility] Start: 01-08-2013 Tobacco use and exposure Smokeless tobacco non-user [facility] Start: 01-05-2023 End: 02-21-2024 Alcohol intake Current non-drinker of alcohol (finding) [facility] Start: 01-05-2023 End: 02-21-2024 Tobacco use panel [facility] Gender identity Identifies as ma le gender (finding) [facility] Start: 02-11-2020 Sexual orientation Heterosexual (finding) [facility] Medical Equipment Procedure Code Equipment Code Equipment Origin al Text Equipment Identifier Dates [employer] 4.5 - [id number] Start: 12-29-2016 [employer] Bio V 4.75x19.1 - [id number] Start: 02-24-2020 [employer] V 4.75x19.1 - [id number] Start: 12-29-2016 Distal Biceps Re pair Implant - [id number] Start: 02-24-2020 [employer] V 4.75x19.1 - [id number] Start: 02-24-2020 [employer] Bio V 4.75x19.1 - [id number] Start: 02-24-2020 Bio-Comp Swvlk C 4.75x19.1mm - [id number] Start: 02-24-2020 Clinical Notes 12-23-2020 to 02-21-2024 Luiz Ramirez ATC - 02/21/2024 8:40 AM EDTJosue Vasquez MD - 02/21/2024 8:40 AM EDTChvictor m Noriega MD - 01/25/2024 2:45 PM EDTRose VARGHESE Valiente - 03/09/2023 7:30 AM EDT Note Date & Type Note Facility 02-21-2024 History of Presen t illness Narrative OFFICE NOTE NEW KNEE Referring Source: Dr. Noriega - Sports Med Chief Complaint: left intractable knee pain, consultation for possible TKA History: Malvin Roblero is a 68 y.o. male with 3 year duration of symptoms in the left knee. Patient was considering TKA last year but tried gel injections first with some light relief. Patient is an active walker on uneven ground and has difficulty and pain doing that for work. Patient had B ACL repair and meniscectomy. L knee had traumatic injury that led to ACL surgery. L KEYA approximately 5 years ago. The pain is sharp and achy and is worsening over time. At worst it is rated 9 out of 10. The pain occurs every day, when active, with relief at rest. He nothing for a gait aide. He takes stairs slowly with some difficulty and using the railing for support and has up to 1 flight of stairs at home. He can walk mild difficulty before stopping from pain. He has difficulty with work Treatments trialed include the following with limited effect: home exercise, activity modification, weight management, and tylenol and gel injections. Last injection: JOHNSON 03/09/23 with Lori Nguyễn PA-C with 1.5 month relief. Prior relevant surgeries include meniscectomy. H/o VTE: Yes H/o MRSA: No H/o metal allergy: No H/o penicillin allergy: Yes Active dental issues: No Active smoking: No Diabetic: No Previous problems with anesthesia: Yes had trouble coming out of anesthesia during first surgery but has not has issues since H/o prostate or bladder procedures or problems: No OFFICE NOTE NEW KNEE Referring Source: Dr. Noriega - Sports Med Chief Complaint: left intractable knee pain, consultation for possible TKA History: Malvin Roblero is a 68 y.o. male with 3 year duration of symptoms in the left knee. Patient was considering TKA last year but tried gel injections first with some light relief. Patient is an active walker on uneven ground and has difficulty and pain doing that for work. Patient had B ACL repair and meniscectomy. L knee had traumatic injury that led to ACL surgery. L KEYA approximately 5 years ago. The pain is sharp and achy and is worsening over time. At worst it is rated 9 out of 10. The pain occurs every day, when active, with relief at rest. He nothing for a gait aide. He takes stairs slowly with some difficulty and using the railing for support and has up to 1 flight of stairs at home. He can walk mild difficulty before stopping from pain. He has difficulty with work Treatments trialed include the following with limited effect: home exercise, activity modification, weight management, and tylenol and gel injections. Last injection: JOHNSON 03/09/23 with Lori Nguyễn PA-C with 1.5 month relief. Prior relevant surgeries include meniscectomy. H/o VTE: Yes H/o MRSA: No H/o metal allergy: No H/o penicillin allergy: Yes Active dental issues: No Active smoking: No Diabetic: No Previous problems with anesthesia: Yes had trouble coming out of anesthesia during first surgery but has not has issues since H/o prostate or bladder procedures or problems: No Current Medical Problems: Past Medical History: Diagnosis Date Chicken pox Factor II deficiency Gastroesophageal reflux GERD (gastroesophageal reflux disease) Sudanese measles screening History of seasonal allergies Hypertension Measles Mumps Past Surgical History: Past Surgical History: Procedure Laterality Date ARTHROSCOPY SHOULDER W/ ROTATOR CUFF REPAIR Left 02/24/2020 Laterality: Left; Surgeon: Seth Olvera MD; Location: [facility] ARTHROSCOPY SHOULDER W/ DEBRIDEMENT Left 02/24/2020 Laterality: Left; Surgeon: Seth Olvera MD; Location: [facility] ARTHROSCOPY SHOULDER W/ SUBACROMIAL DECOMPRESSION/ACROMIOPLASTY ADD-ON Left 02/24/2020 Laterality: Left; Surgeon: Seth Olvera MD; Location: [facility] RESECTION/TRANSPLANTATION BICEPS LONG TENDON Left 02/24/2020 Laterality: Left; Surgeon: Seth Olvera MD; Location: [facility] HIP REPLACEMENT Left 2018 Done in [place] ARTHROSCOPY SHOULDER W/ ROTATOR CUFF REPAIR Right 12/29/2016 Laterality: Right; Surgeon: Seth Olvera MD; Location: [facility] OR ARTHROSCOPY SHOULDER W/ BICEPS TENODESIS Right 12/29/2016 Laterality: Right; Surgeon: Seth Olvera MD; Location: [facility] OR ARTHROSCOPY SHOULDER W/ DEBRIDEMENT Right 12/29/2016 Laterality: Right; Surgeon: Seth Olvera MD; Location: [facility] OR ARTHROSCOPY SHOULDER W/ SUBACROMIAL DECOMPRESSION/ACROMIOPLASTY ADD-ON Right 12/29/2016 Laterality: Right; Surgeon: Seth Olvera MD; Location: [facility] MAIN OR ACL RECONSTRUCTION 2005 Left Knee ACL, MCL recon ACL RECONSTRUCTION 1997 Right knee Family History: Family History Problem Relation Age of Onset Hypertension Father Cancer- Other Father brain Hypertension Mother Neurologic Disease Mother cognitive problems, hydrocephalus Aneurysm Neg Hx Bleeding or Clotting Problems Neg Hx Myocardial Infarction Neg Hx Stroke Neg Hx Diabetes Neg Hx Heart Failure Neg Hx Dysrhythmia Neg Hx Social History: Social History Socioeconomic History Marital status: Spouse name: Not on file Number of children: Not on file Years of education: Not on file Highest education level: Not on file Occupational History Not on file Tobacco Use Smoking status: Never Smokeless tobacco: Never Vaping Use Vaping status: Never Used Substance and Sexual Activity Alcohol use: No Drug use: No Sexual activity: Not on file Other Topics Concern Not on file Social History Narrative Not on file Social Determinants of Health Financial Resource Strain: Not on file Food Insecurity: Not on file Transportation Needs: Not on file Physical Activity: Not on file Stress: Not on file Social Connections: Not on file Intimate Partner Violence: Not on file Housing Stability: Not on file Allergies: Allergies Allergen Reactions Cyclobenzaprine throat swelling Ketorolac Tromethamine Swelling Meloxicam Swelling Orphenadrine Swelling Penicillin G Rash Triamcinolone Swelling Medications: Current Outpatient Medications Medication Instructions Acetaminophen (TYLENOL) 325 mg, Oral, EVERY 4 HOURS losartan 50 MG PO TABS DAILY Metoprolol (LOPRESSOR) 25 mg, Oral, DAILY MOMETASONE FUROATE NA Nasal, NEEDED omeprazole (PRILOSEC) 40 mg, Oral, DAILY XARELTO 20 MG DAILY Review of Systems: Please refer to the attached 12-point review of systems attached in the patient's intake sheet. Physical Exam: General: BMI: Body mass index is 24.55 kg/m . Vitals: Vitals: 02/21/24 0840 Weight: 82.1 kg (181 lb) Height: 1.829 m (6') Appears stated age Affect - pleasant, alert and oriented Gait - antalgic left Knee: Appearance - normal overlying skin, no significant discoloration and no scars Alignment - mild valgus deformity Crepitus - Present Effusion - absent Tenderness to Palpation - lateral joint line and medial joint line Range of Motion - 0 degrees through approximately 130 degrees of flexion, without an extensor lag Stability - stable to varus and slight laxity with valgus stress with a 2-3mm anterior drawer bilateral Hip: painless ROM Neurovascular: 5/5 strength in the hip abductor, flexor, quadriceps, hamstrings, tibialis anterior, gastroc-soleus, and EHL Sensation Intact L4-S1 Vascular - no edema, well-perfused, brisk capillary refill, warm toes, no lymphadenopathy Imaging (My Independent Interpretation): My independent interpretation of Left knee X-rays demonstrate tricompartmental joint space narrowing, cysts, osteophytes formation, subchondral sclerosis. Evidence of prior MCL injury Full limb length xrays demonstrate mild valgus deformity. There is mild joint space narrowing, cysts, osteophytes formation, subchondral sclerosis of the right hips noted. Assessment and Plan: Malvin Roblero is a 68 y.o. male with tricompartmental end stage arthritis of the left knee. He has had symptoms that have persisted for at least six months, is no longer able to carry out age-appropriate activities of daily living, has pain with activity and weight bearing, and has failed an appropriate regimen of conservative treatment as documented throughout his chart. His exam demonstrates deformity, crepitus, painful limited range of motion, and an antalgic gait, while radiographs demonstrate subchondral sclerosis, periarticular osteophytes, and joint space narrowing. Based on these factors, I have recommended surgical treatment with total knee arthroplasty. He was provided with an overview of the risks of the procedure, including but not limited to risks of delayed wound healing, bleeding, superficial or deep infection, neurovascular complications, periprosthetic fracture, extensor mechanism disruption, ligamentous instability, numbness, blood clots, and cardiopulmonary complications. He understands the risks for each of these varies based on individual patient-specific factors, and preoperative optimization of any modifiable risk factors was discussed where necessary. He will be given information about how to receive preoperative education and obtain chlorhexidine wipes that help prevent infection, and also understands the need for active engagement in a rehabilitation and physical therapy program with adequate pain control postoperatively in order to achieve a good result. Additionally, he understands that this is elective surgery and alternatives to surgery include living with his symptoms and continued conservative measures such as exercise, weight loss, and medications. All questions were answered to the patient's satisfaction. Surgical Considerations and Patient-Specific Risk Factor Assessment: Robotic Assistance: No, manual technique Patellofemoral Joint: Intraoperative decision Periprosthetic Fracture and Component Loosening Risk Factors / Choice of Fixation: Age 60-70, indeterminate bone quality / intraoperative decision will be made Planned Implant Choice: cemented Faraz persona Periprosthetic Joint Infection Risk Factors: Low Risk - no additional antibiotics Postoperative Dressing: Silverlon Venous Thromboembolic Risk Assessment: resume home xarelto dose Case Stratification: Primary B Additional Considerations: hx of MCL injury, may need CPS poly Disposition: Ambulatory [facility] Josue Vasquez MD Donor Services Manager of Orthopedic Surgery [facility] documented in this encounter [facility] 01-25-2024 History of Presen t illness Narrative This note was scribed on behalf of Dr. Nora Noriega by SURAJ Stapleton Chief Complaint Patient presents with Left Knee - Follow-up F/up left knee OA. XOA. Completed left knee JOHNSON injections w/ Lori 03/09/23. Prior left knee ACL reconstruction w/ TA allograft and MCL repair, [facility] w/ Dr. Noriega - January 2005. States that he got about 1.5mo of relief from his last JOHNSON injections. Reports has been dealing with increasing global pains that are present during his daily activities. Not taking anything for pain. SUBJECTIVE: Malvin returns for follow up. Overall, the pain is severe and worsening. Reports Poor pain control without the need for medication. Patient has not responded to ice, rest, OTC pain medication, and JOHNSON injections several months ago, temporarily effective. Review of Systems - Musculoskeletal ROS: positive for - joint pain PHYSICAL EXAMINATION: Smoking Status Never Pleasant 68 y.o. male in no acute distress, alert and oriented times three. abnormal antalgic gait. Left knee skin intact/ nothing noted. In the supine position there is negative effusion. There is not quadriceps atrophy. he has moderate tenderness upon palpation of medial joint. Anterior impingement testing is negative. Patellar apprehension testing is negative. Fei's/flexion circumduction testing is negative. Ligamentous exam is negative The calf is soft, supple and non-tender with 2+ distal pulses and sensation intact without evidence of DVT. Patient denies fever, chills or shortness of breath. Circulation, motor and sensation are grossly intact distally. Radiographs: Left knee XR: IMPRESSION: 1. Tricompartmental left knee osteoarthritis with joint space narrowing and degenerative changes most pronounced at the lateral compartment. 2. Joint effusion with multiple ossified intra-articular bodies. 3. Evidence of remote injury at the medial collateral ligament. IMPRESSION: Left knee OA PLAN Malvin is progressing poorly. The diagnosis and treatment were discussed with him in detail today. The plan is to move forward with a referral to our total knee replacement specialists to discuss replacement options. We will see patient back prn or if symptoms fail to resolve or worsen. If there are any questions prior to this, the patient was instructed to contact the office. All questions were answered to the patients satisfaction. The patient does not need new xray's upon arrival of his next appointment. Darrell Miguelito, AT was acting as a scribe today for this note. I have performed all essential components of the history, and physical exam. I have confirmed the diagnosis and developed a plan of care at this visit. I have reviewed the note following the visit and have add edits as appropriate to my evaluation and plan of care. documented in this encounter [facility] 03-09-2023 History of Presen t illness Narrative Associated Order(s): LARGE JOINT/BURSA INJECTION AND/OR ASPIRATION: L knee Post-Procedure Diagnose(s): Osteoarthritis of left knee, unspecified osteoarthritis type LARGE JOINT/BURSA INJECTION AND/OR ASPIRATION: L knee Date/Time: 03/09/2023 7:30 AM Performed by: Lori Nguyễn, PAC Authorized by: Lori Nguyễn, PAC Supporting Documentation Indications: pain and joint swelling Procedure Details: Location: knee - L knee Local Anesthetic: ethyl chloride (cold spray) Needle size: 25 G Approach: medial Medication Verification: I have personally verified and performed the final check of the medication(s) used in this procedure prior to administration. The following items were included during the verification process for medication(s) administered: drug name, strength, volume, expiration, physical integrity and appearance of the medication(s). Medications administered: 30 mg Hyaluronan 30 MG/2ML Patient tolerance: patient tolerated the procedure well with no immediate complications Comments There were no immediate complications. 5 minutes of ice were applied to the injection site . Malvin was advised to modify activities, apply ice later in the day and if needed use [id number]-hrt-tufptbo anti-inflammatories for any mild swelling or discomfort.The patient is to follow-up in 6 months or sooner as needed. He is to call the office with any other questions or concerns in the interim. Consent: Consent was obtained prior to the procedure after discussion of the risks, benefits and alternatives, and expected outcomes were discussed with the patient. The possibilities of reaction to medication, bleeding, infection, the need for additional procedures, failure to diagnosis a condition, and creating a complication requiring operation were discussed with the patient. The patient concurred with the proposed plan, giving consent. Preparation: Patient was prepped in the usual sterile fashion. The patient was prepped with Betadine. Patients insurance provided medication for injection. Do not bill. documented in this encounter [facility] 02-23-2023 History of Presen t illness Narrative Associated Order(s): LARGE JOINT/BURSA INJECTION AND/OR ASPIRATION: L knee LARGE JOINT/BURSA INJECTION AND/OR ASPIRATION: L knee Date/Time: 02/23/2023 7:45 AM Performed by: VARGHESE Sanchez Authorized by: VARGHESE Sanchez Supporting Documentation Indications: pain and joint swelling Procedure Details: Location: knee - L knee Local Anesthetic: ethyl chloride (cold spray) Needle size: 25 G Approach: medial Medication Verification: I have personally verified and performed the final check of the medication(s) used in this procedure prior to administration. The following items were included during the verification process for medication(s) administered: drug name, strength, volume, expiration, physical integrity and appearance of the medication(s). Medications administered: 30 mg Hyaluronan 30 MG/2ML Patient tolerance: patient tolerated the procedure well with no immediate complications Comments There were no immediate complications. 5 minutes of ice were applied to the injection site . Malvin was advised to modify activities, apply ice later in the day and if needed use [id number]-cntvonl anti-inflammatories for any mild swelling or discomfort.The patient is to follow-up in 1 week or sooner as needed. He is to call the office with any other questions or concerns in the interim. Consent: Consent was obtained prior to the procedure after discussion of the risks, benefits and alternatives, and expected outcomes were discussed with the patient. The possibilities of reaction to medication, bleeding, infection, the need for additional procedures, failure to diagnosis a condition, and creating a complication requiring operation were discussed with the patient. The patient concurred with the proposed plan, giving consent. Preparation: Patient was prepped in the usual sterile fashion. The patient was prepped with Betadine. Patients insurance provided medication for injection. Do not bill. documented in this encounter [facility] 02-16-2023 History of Presen t illness Narrative Associated Order(s): LARGE JOINT/BURSA INJECTION AND/OR ASPIRATION: L knee LARGE JOINT/BURSA INJECTION AND/OR ASPIRATION: L knee Date/Time: 02/16/2023 7:45 AM Performed by: VARGHESE Sanchez Authorized by: VARGHESE Sanchez Supporting Documentation Indications: pain and joint swelling Procedure Details: Location: knee - L knee Local Anesthetic: ethyl chloride (cold spray) Needle size: 25 G Approach: medial Medication Verification: I have personally verified and performed the final check of the medication(s) used in this procedure prior to administration. The following items were included during the verification process for medication(s) administered: drug name, strength, volume, expiration, physical integrity and appearance of the medication(s). Medications administered: 30 mg Hyaluronan 30 MG/2ML Patient tolerance: patient tolerated the procedure well with no immediate complications Comments There were no immediate complications. 5 minutes of ice were applied to the injection site . Malvin was advised to modify activities, apply ice later in the day and if needed use qlqs-[id number]-hxcwgnx anti-inflammatories for any mild swelling or discomfort.The patient is to follow-up in 1 week or sooner as needed. He is to call the office with any other questions or concerns in the interim. Consent: Consent was obtained prior to the procedure after discussion of the risks, benefits and alternatives, and expected outcomes were discussed with the patient. The possibilities of reaction to medication, bleeding, infection, the need for additional procedures, failure to diagnosis a condition, and creating a complication requiring operation were discussed with the patient. The patient concurred with the proposed plan, giving consent. Preparation: Patient was prepped in the usual sterile fashion. The patient was prepped with Betadine. Patients insurance provided medication for injection. Do not bill. documented in this encounter [facility] 01-05-2023 History of Presen t illness Narrative [facility] Chief Complaint Patient presents with Left Knee - Pain 67 y.o female c/o left knee pain. XOA. Seen in 2019 for left knee OA. Prior left knee ACL reconstruction w/ TA allograft and MCL repair, [facility] w/ Dr. Noriega - January 2005. States that he is dealing with constant achy pains mostly along the anterior portion of knee but does report it can surround his knee at times. Pains even when ascending/ descending stairs and worsen when sitting for prolonged time. Denies any new trauma. Walks a lot for work on uneven ground. Mechanical symptoms present. Malvin presents today for evaluation of the left knee. He is s/p prior L ACL reconstruction with partial lateral menisectomy over 20 years ago and notes increasing pain in his left knee over the past few years. He reports pain is diffuse and worse when first standing after prolonged sitting. Also worse with activity. He denies instability or mechanical symptoms of his knee. He previously wore a knee brace which provided some relief. Denies recent PT, injections. Does not regularly take NSAIDs Allergies Allergen Reactions Cyclobenzaprine throat swelling Ketorolac Tromethamine Swelling Meloxicam Swelling Orphenadrine Swelling Penicillin G Rash Triamcinolone Swelling Outpatient Medications Prior to Visit Medication Sig Dispense Refill acetaminophen 325 MG tablet Take 325 mg by mouth every 4 hours. losartan 50 MG PO TABS daily. metoprolol 25 MG tab regular release Take 25 mg by mouth daily. MOMETASONE FUROATE NA by Nasal route as needed.. omeprazole [address] take 40 mg by mouth daily.. XARELTO 20 MG daily.. No facility-administered medications prior to visit. Past Surgical History: Procedure Laterality Date ARTHROSCOPY SHOULDER W/ ROTATOR CUFF REPAIR Left 02/24/2020 Laterality: Left; Surgeon: Seth Olvera MD; Location: [facility] PERIOP ARTHROSCOPY SHOULDER W/ DEBRIDEMENT Left 02/24/2020 Laterality: Left; Surgeon: Seth Olvera MD; Location: [facility] PERIOP ARTHROSCOPY SHOULDER W/ SUBACROMIAL DECOMPRESSION/ACROMIOPLASTY ADD-ON Left 02/24/2020 Laterality: Left; Surgeon: Seth Olvera MD; Location: [facility] PERIOP RESECTION/TRANSPLANTATION BICEPS LONG TENDON Left 02/24/2020 Laterality: Left; Surgeon: Seth Olvera MD; Location: [facility] PERIOP HIP REPLACEMENT Left 2018 Done in [place] ARTHROSCOPY SHOULDER W/ ROTATOR CUFF REPAIR Right 12/29/2016 Laterality: Right; Surgeon: Seth Olvera MD; Location: [facility] MAIN OR ARTHROSCOPY SHOULDER W/ BICEPS TENODESIS Right 12/29/2016 Laterality: Right; Surgeon: Seth Olvera MD; Location: [facility] OR ARTHROSCOPY SHOULDER W/ DEBRIDEMENT Right 12/29/2016 Laterality: Right; Surgeon: Seth Olvera MD; Location: [facility] OR ARTHROSCOPY SHOULDER W/ SUBACROMIAL DECOMPRESSION/ACROMIOPLASTY ADD-ON Right 12/29/2016 Laterality: Right; Surgeon: Steh Olvera MD; Location: [facility] MAIN OR ACL RECONSTRUCTION 2006 Left Knee ACL, MCL recon ACL RECONSTRUCTION 1998 Right knee Past Medical History: Diagnosis Date Chicken pox Factor II deficiency Gastroesophageal reflux GERD (gastroesophageal reflux disease) Sudanese measles screening History of seasonal allergies Hypertension Measles Mumps Social History Socioeconomic History Marital status: Spouse name: Not on file Number of children: Not on file Years of education: Not on file Highest education level: Not on file Occupational History Not on file Tobacco Use Smoking status: Never Smokeless tobacco: Never Substance and Sexual Activity Alcohol use: No Drug use: No Sexual activity: Not on file Other Topics Concern Not on file Social History Narrative Not on file Social Determinants of Health Financial Resource Strain: Not on file Food Insecurity: Not on file Transportation Needs: Not on file Physical Activity: Not on file Stress: Not on file Social Connections: Not on file Intimate Partner Violence: Not on file Housing Stability: Not on file Family History Problem Relation Age of Onset Hypertension Father Cancer- Other Father brain Hypertension Mother Neurologic Disease Mother cognitive problems, hydrocephalus Aneurysm Neg Hx Bleeding or Clotting Problems Neg Hx Myocardial Infarction Neg Hx Stroke Neg Hx Diabetes Neg Hx Heart Failure Neg Hx Dysrhythmia Neg Hx Physical examination does reveal a healthy appearing 67 y.o. year old male in no acute distress. He does have symmetric pulses in his bilateral upper extremities and lower extremities. He had good skin turgor in his bilateral upper extremities and lower extremities. He has symmetric light touch sensation in his bilateral upper extremities and lower extremities. Examination of the right knee reveals full sljoy-bo-nhwaev and strength. The instability exam is negative. There are no areas of tenderness. Examination of the left knee reveals [id number]-[id number] to be 0 degrees extension and 120 of flexion. The patient has Normal quad tone and strength. There is not medial joint line tenderness. There is lateral joint line tenderness. There is pain on flexion/ circumduction testing. The patient has a negative Jeanette's test, a negative posterior drawer test, mild valgus instability which is fully correctable, and negative varus instability. There is pain/crepitation with patellar compression. AP/ LATERAL/ SUNRISE VIEWS were obtained of the left knee and personally reviewed which demonstrate advanced joint space narrowing, specifically of the lateral and patellofemoral compartment with associated osteophyte formation. Intraarticular loose bodies. Impression: Left knee osteoarthritis s/p L ACL reconstruction and partial lateral menisectomy over 20 years ago Plan: We had a good discussion in clinic today with Pramod regarding his left knee. He had advanced arthritis at this point based on imaging. It was explained to the patient that at this time we recommend a course of non-operative treatment of their osteoarthritic knee. This often includes intermittent corticosteroid injections, consideration of visco-supplementation injections, an truck loader and unloader brace, use of a heel wedge, physical therapy, nonsteroidal anti-inflammatory medications, icing ,using a knee sleeve, weight loss and activity modification. They understand that if symptoms progress despite non-operative interventions, that they may become a candidate for a knee replacement. He would like to proceed with JOHNSON injections at this time and we will order that today. He has a previous truck loader and unloader brace which we will attempt to wear again. We will see them back on an as needed basis. he was in agreement and understanding of the plan, and all of his questions are answered. Edilberto Costa MD Orthopaedic Surgery Sports Medicine Fellow Patient was seen and evaluated with the Sports Medicine Fellow/Resident at today's visit. I performed all essential elements of the history and physical exam at today's visit. I have confirmed the diagnosis at today's visit. I have determined the plan of care for today's visit. Please refer to the fellow/resident's note for further details from today's visit. I have reviewed the note following the visit have added edits as appropriate to my evaluation and plan of care. The diagnoses for today's visit include: knee arthritis. documented in this encounter [facility] 04-27-2021 Note HNO ID: [id number] Author: Yosvany Dennis MD Service: ? Author Type: Physician Type: Progress Notes Filed: 05/08/2021 11:02 PM Note Text: NEUROLOGY follow up visit Interval history Booster Vaccine Memory is good with no recurrent episodes of confusion migriane breakthrough occasionally 2 months ago had last episode of migriane Took tylenol but cannot use NSAI No autonmic symptoms headache can be debilitating Takes 4 tylenol and goes to sleep ,by next morning he is ok Discussed future plans if headache increases in frequency IF BREAKTHORUGH HEADACHE will give nurtec Cannot get triptans ASSESSMENT: 65 year old male with episode of TGA ,was hospitalized in [place] and stroke work up Completed with no acute lesion seen on MRI. PLAN: No orders found for this visit on 04/27/21. STROKE PREVENTION Discussed with the patient ---> Follow-up: 1-2 months, Tests results will be discussed in the follow up appointment Medications side effects explained and discussed with the patient . CC: Episode of confusion HxCC: 65 year old male , who presents for evaluation of TGA after being hospitalized in [place]. October 27 and diagnosed with TGA That morning he went to the basement after Treadmill exercise Lost memory of everything after finishing the exercises , He couldn't remember any of the morning events got worried and took him ER where complete stroke work up done Patient doesn't remember any of these events until going to hallway of the hospital floor After admission his memory came back but couldn't remember any of that morning events He had an mri brain and EEG Sister had the same thing happen to her after stressful event ,was also diagnosed with TGA Denies headache during before or after this event Mother has dementia ,he is worried that this may be first sign of dementia On further neurologic questioning, the patient denies new headaches, neck or back pain. No new focal weakness, numbness or paresthesias. No new blurry, double or loss of vision. No new loss of hearing, vertigo, or tinnitus. No dysarthria, dysphonia or dysphagia. No new imbalance, frequent falls or incoordination. No bowel or bladder incontinence. No saddle anesthesia. No muscular atrophy or fasciculations. RECENT LABS: No results found for: WBC, RBC, HB, HCT, MCV, MCH, MCHC, RDWCV, PLT, MPV Last BMP (Basic Metabolic Panel) No results found for: NA No results found for: K No results found for: CHLOR No results found for: CO2 No results found for: BUN No results found for: CREAT No results found for: GLUC No results found for: ANION No results found for: CA TSH Date Value Ref Range Status 04/22/2021 2.530 0.270 - 4.200 uU/mL Final B12: RECENT IMAGING/DIAGNOSTICS: --MRI/MRA/MRV Brain w/wocontrast (): No acute intracranial lesion --MRI Cervical Spine w/wo contrast (/): --EEG PMH: Hypertension No past medical history on file. PSH: No past surgical history on file. CURRENT MEDS: No current facility-administered medications for this visit. Current Outpatient Medications Medication Sig - losartan (COZAAR) 50 mg tablet Take 50 mg by mouth once daily. - omeprazole (PRILOSEC) 40 mg capsule Take 40 mg by mouth once daily. - rivaroxaban (XARELTO) 20 mg tablet Take 20 mg by mouth once daily. - metoprolol tartrate, short acting, (LOPRESSOR) 25 mg tablet Take 25 mg by mouth twice daily. - mometasone (NASONEX) 50 mcg/actuation nasal spray Use 2 Sprays in the nose once daily. - levoFLOXacin (LEVAQUIN) 500 mg tablet Take 500 mg by mouth once daily. No current facility-administered medications for this visit. ALLERGIES: ALLERGIES Allergen Reactions - Cyclobenzaprine Swelling throat swelling - Ketorolac Swelling - Meloxicam Swelling - Orphenadrine Swelling - Penicillins Rash - Triamcinolone Swelling FMH: No family history on file. SOCIAL: Social History Tobacco Use - Smoking status: Never Smoker - Smokeless tobacco: Never Used Substance Use Topics - Alcohol use: Never - Drug use: Not on file REVIEW OF SYSTEMS (In addition to HPI): PHYSICAL EXAM: BP 119/72 (BP Site: Right Arm, BP Position: Sitting, BP Cuff Size: Large Adult) Pulse (!) 52 Ht 180.3 cm (5' 11 ) Wt 91.6 kg (202 lb) SpO2 99% BMI 28.17 kg/m? GEN: Alert. NAD. Normal affect. Cooperative. HEENT: No icterus. Normal mucosa. No temporal artery tenderness. Fundoscopic exam unremarkable. NECK/BACK: No meningismus. No lymphadenopathy. No significant paraspinal neck or shoulder musculature tenderness or hypertonicity. No spinous process tenderness. CV: RRR. No M/G/R/C. No carotid bruits. RESP: CTA b/l. EXT: No cyanosis. No edema. No erythema. SKIN: No rashes. No lesions. NEUROLOGICAL: MENTAL STATUS: Awake alert oriented times 5 . Recent and remote memory intact. Immediate memory intact by 3 item recall and 7 digit recall. Attention knowledge intac (more content not included)... [facility] 12-24-2020 Note HNO ID: [id number] Author: Yosvany Dennis MD Service: ? Author Type: Physician Type: Progress Notes Filed: 01/04/2021 7:20 PM Note Text: NEUROLOGY CONSULT NOTE Please leave note in paper medical record. Previous records (physician notes, laboratory reports, and radiology reports) and imaging studies were reviewed and summarized as below. My recommendations will be communicated back to the patient's consulting physician(s) by way of shared medical record. REFERRING PHYSICIAN: Salinas Travis MD [address] [place] [address] [address] [phone] Accompanied by: Self ASSESSMENT: 65 year old male with episode of TGA ,was hospitalized in [place] and stroke work up Completed with no acute lesion seen on MRI. PLAN: Office Visit on 12/24/20 - VITAMIN B12 BLOOD - TSH BLD - METHYLMALONIC ACID STROKE PREVENTION Discussed with the patient ---> Follow-up: 1-2 months, Tests results will be discussed in the follow up appointment Medications side effects explained and discussed with the patient . CC: Episode of confusion HxCC: 65 year old male , who presents for evaluation of TGA after being hospitalized in [place]. October 27 and diagnosed with TGA That morning he went to the basement after Treadmill exercise Lost memory of everything after finishing the exercises , He couldn't remember any of the morning events got worried and took him ER where complete stroke work up done Patient doesn't remember any of these events until going to hallway of the hospital floor After admission his memory came back but couldn't remember any of that morning events He had an mri brain and EEG Sister had the same thing happen to her after stressful event ,was also diagnosed with TGA Denies headache during before or after this event Mother has dementia ,he is worried that this may be first sign of dementia On further neurologic questioning, the patient denies new headaches, neck or back pain. No new focal weakness, numbness or paresthesias. No new blurry, double or loss of vision. No new loss of hearing, vertigo, or tinnitus. No dysarthria, dysphonia or dysphagia. No new imbalance, frequent falls or incoordination. No bowel or bladder incontinence. No saddle anesthesia. No muscular atrophy or fasciculations. RECENT LABS: No results found for: WBC, RBC, HB, HCT, MCV, MCH, MCHC, RDWCV, PLT, MPV Last BMP (Basic Metabolic Panel) No results found for: NA No results found for: K No results found for: CHLOR No results found for: CO2 No results found for: BUN No results found for: CREAT No results found for: GLUC No results found for: ANION No results found for: CA No results found for: TSH B12: RECENT IMAGING/DIAGNOSTICS: --MRI/MRA/MRV Brain w/wocontrast (): No acute intracranial lesion --MRI Cervical Spine w/wo contrast (/): --EEG PMH: Hypertension No past medical history on file. PSH: No past surgical history on file. CURRENT MEDS: No current facility-administered medications for this visit. Current Outpatient Medications Medication Sig - losartan (COZAAR) 50 mg tablet Take 50 mg by mouth once daily. - omeprazole (PRILOSEC) 40 mg capsule Take 40 mg by mouth once daily. - rivaroxaban (XARELTO) 20 mg tablet Take 20 mg by mouth once daily. - metoprolol tartrate, short acting, (LOPRESSOR) 25 mg tablet Take 25 mg by mouth twice daily. - levoFLOXacin (LEVAQUIN) 500 mg tablet Take 500 mg by mouth once daily. - mometasone (NASONEX) 50 mcg/actuation nasal spray Use 2 Sprays in the nose once daily. No current facility-administered medications for this visit. ALLERGIES: ALLERGIES Allergen Reactions - Cyclobenzaprine Swelling throat swelling - Ketorolac Swelling - Meloxicam Swelling - Orphenadrine Swelling - Penicillins Rash - Triamcinolone Swelling FMH: No family history on file. SOCIAL: Social History Tobacco Use - Smoking status: Never Smoker - Smokeless tobacco: Never Used Substance Use Topics - Alcohol use: Never - Drug use: Not on file REVIEW OF SYSTEMS (In addition to HPI): Review of Systems Constitutional: Negative Eyes: Negative Hent Positive for Tinnitus Cardiovascular: Negative Respiratory Positive for Cough and Snoring GI: Negative : Negative Endocrine: Negative Musculoskeletal: Negative Integumentary: Negative Heme/Lymph: Negative Allergy/Immunologic Positive for Nasal Congestion Neurologic Positive for Memory Problems and Headache Psychiatric: Negative Patient's Review of Systems has been reviewed with the patient and updated as appropriate. PHYSICAL EXAM: BP 116/80 (BP Site: Right Arm, BP Position: Sitting, BP Cuff Size: Regular Adult) Pulse 61 Ht 179.1 cm (5' 10.5 ) Wt 87.7 kg (193 lb 4.8 oz) SpO2 98% BMI 27.34 kg/m? GEN: Alert. NAD. Normal affect. Cooperative. HEENT: No icterus. Normal mucosa. No temporal artery tenderness. Fundoscopic exam unremarkable. NE (more content not included)... [facility] 12-23-2020 Miscellaneous Notes Received Medical Records via: Fax From Office Name: [facility] (Medical/Clinical) or [phone] (Business/Insurance) Date of Visit: Office Visit: 12/18/2020, ED Visit: 10/27/2020, Office Visit: 11/04/2020, Office Visit: 09/16/2020, Labs 10/28/2020, CT Brain WO: 10/27/2020, MRA Head WO: 10/27/2020, MR Head WO: 10/27/2020, MRA Neck WO/W: 10/27/2020,ECHO: 10/27/2020, 12 Lead EK10/27/2020 Office Note From Physician:Dr. Salinas Travis and [facility] Placed all records in file folder for upcoming office visit, December 24, [address] Dennis for review. Copy of note in file folder for scanning. Consuelo Pina documented in this encounter [facility] Evaluation note Diagnosis Amnesia- Primary Memory loss Amnesia, global, transient documented in this encounter [facility] note* Diagnosis Osteoarthritis of left knee, unspecified osteoarthritis type- Primary Left knee pain, unspecified chronicity [facility] Diagnosis Osteoarthritis of left knee, unspecified osteoarthritis type- Primary documented in this encounter [facility] note* Diagnosis Osteoarthritis of left knee, unspecified osteoarthritis type- Primary documented in this encounter [facility] note* Diagnosis Osteoarthritis of left knee, unspecified osteoarthritis type- Primary documented in this encounter [facility] note* Diagnosis Left knee pain, unspecified chronicity- Primary Primary osteoarthritis of left knee Primary localized osteoarthrosis, lower leg Left knee pain, unspecified chronicity documented in this encounter [facility] note* Diagnosis Left knee pain, unspecified chronicity documented in this encounter [facility] note* Diagnosis Primary osteoarthritis of left knee- Primary Primary localized osteoarthrosis, lower leg Left knee pain, unspecified chronicity Left knee pain, unspecified chronicity documented in this encounter [facility] note* Diagnosis Left knee pain, unspecified chronicity [facility] Consultation (Routine) - New Request Specialty Diagnoses / Procedures Referred By Gareth goyal Referred To Contact Orthopaedic Surgery Diagnoses Primary osteoarthritis of left knee Nora Noriega MD [address] [place] [address] Referral ID Status Reason Start Date Expiration Date V isits Requested Visits Authorized [id number] New Request 01/25/2024 02/18/2025 1 1 * Diagnostic X-Ray (Routine) - New Request Specialty Diagnoses / Procedures Referred By Gareth goyal Referred To Contact Diagnoses Left knee pain, unspecified chronicity Procedures XR KNEE LEFT 3+ VIEWS W/ BILATERAL STANDING 1 VIEW CHG RADIOLOGIC EXAM KNEE COMPLETE 4/MORE VIEWS CHG RADIOLOGIC EXAM KNEE COMPLETE 4/MORE VIEWS Nora Noriega MD [address] [place] [address] Referral ID Status Reason Start Date Expiration Date V isits Requested Visits Authorized [id number] New Request 01/23/2024 02/16/2025 1 1 [facility] Reason for Referral Status Reason Specialty Diagnoses / Procedures Referred By Contact Referred To Contact Authorized Neurology Diagnoses Amnesia, global, transient Salinas Travis MD [address] [place] [address] [facility] Sched MD Specialty Diagnoses / Procedures Referred By Contac t Referred To Contact Physical Therapy Diagnoses Osteoarthritis of left knee, unspecified osteoarthritis type Nroa Noriega MD [address] [place] [address] Referral ID Status Reason Start Date Expiration Date V isits Requested Visits Authorized [id number] New Request 01/05/2023 01/30/2024 1 1 Scheduling Instructions [facility] [address] [facility], 2nd [place] [address] Fax [facility] (Neck and Back Therapy) [address] [place], [place] [address] FAX [facility] [address] [address] FAX Outpatient [facility] [place] [address] [facility] [address] [place] [address] [phone] FAX [facility] [address] [place] [address] FAX Physical Therapy at [address] [phone] FAX [facility] [address] [place], [place] [phone] FAX Continued on next page Outpatient [facility] Outpatient Care [address] [place] [address] FAX [facility] [address] [facility] [place], [place] [address] FAX Specialty Diagnoses / Procedures Referred By Gareth goyal Referred To Contact Diagnoses Osteoarthritis of left knee, unspecified osteoarthritis type Nora Noriega MD [address] [place] [address] Referral ID Status Reason Start Date Expiration Date V isits Requested Visits Authorized [id number] New Request 01/05/2023 01/30/2024 1 1 Specialty Diagnoses / Procedures Referred By Gareth goyal Referred To Contact Diagnoses Left knee pain, unspecified chronicity Procedures XR KNEE LEFT 3+ VIEWS W/ BILATERAL STANDING 1 VIEW CHG RADIOLOGIC EXAM KNEE COMPLETE 4/MORE VIEWS CHG RADIOLOGIC EXAM KNEE COMPLETE 4/MORE VIEWS Nora Noriega MD [address] [place] [phone] Referral ID Status Reason Start Date Expiration Date V isits Requested Visits Authorized [id number] New Request 01/23/2024 02/16/2025 1 1 Summary Purpose Family History No Family History Records FoundNo Family History Records Found Advance Directives No Advanced Directives Records FoundNo Advanced Directives Records Found Additional Source Comments Source Comments (unrecognize d section and content) In the event this informatio n is protected by the Federal Confidentiality of Alcohol and Drug Abuse Patient Records regulations: The Federal rules restrict any use of the information to criminally investigate or prosecute any alcohol or drug abuse patient.[facility] Reason for Visit (unrecogniz ed section and content) Reason Comments Received Outside Medical Records Reason Comments Pain 67 y.o female c/o le ft knee pain. XOA. Seen in 2019 for left knee OA. Prior left knee ACL reconstruction w/ TA allograft and MCL repair, [facility] w/ Dr. Noriega - January 2005. States that he is dealing with constant achy pains mostly along the anterior portion of knee but does report it can surround his knee at times. Pains even when ascending/ descending stairs and worsen when sitting for prolonged time. Denies any new trauma. Walks a lot for work on uneven ground. Mechanical symptoms present. Reason Comments Joint Injection Left knee Orthovisc #1 left knee Specialty Diagnoses / Procedures Referred By Gareth goyal Referred To Contact Sports Medicine Diagnoses Osteoarthritis of left knee, unspecified osteoarthritis type Nora Noriega MD [address] [place] [phone] [facility] [place] [address] [place] [address] Referral ID Status Reason Start Date Expiration Date Visits Re quested Visits Authorized [id number] Closed 01/05/2023 01/30/2024 1 1 Reason Comments Joint Injection Left knee #2 Orthovi sc Reason Comments Joint Injection Left knee Orthovisc #3 Reason Comments Follow-up F/up left knee OA. X OA. Completed left knee JOHNSON injections w/ [facility] 03/09/23. Prior left knee ACL reconstruction w/ TA allograft and MCL repair, [facility] w/ Dr. Noriega - January 2005. States that he got about 1.5mo of relief from his last JOHNSON injections. Reports has been dealing with increasing global pains that are present during his daily activities. Not taking anything for pain. Specialty Diagnoses / Procedures Referred By Gareth goyal Referred To Contact Diagnoses Left knee pain, unspecified chronicity Procedures XR KNEE LEFT 3+ VIEWS W/ BILATERAL STANDING 1 VIEW CHG RADIOLOGIC EXAM KNEE COMPLETE 4/MORE VIEWS CHG RADIOLOGIC EXAM KNEE COMPLETE 4/MORE VIEWS Nora Noriega MD [address] [place] [address] Referral ID Status Reason Start Date Expiration Date V isits Requested Visits Authorized [id number] New Request 01/23/2024 02/16/2025 1 1 Reason Comments Pain Specialty Diagnoses / Procedures Referred By Gareth t Referred To Contact Orthopaedic Surgery Diagnoses Primary osteoarthritis of left knee Nora Noriega MD [address] [place] [address] Referral ID Status Reason Start Date Expiration Date V isits Requested Visits Authorized [id number] New Request 01/25/2024 02/18/2025 1 1 (unrecognized sect ion and content) No Status Records FoundNo Status Records Found INFORMATION SOURCE (unrecogn ized section and content) DATE CREATED AUTHOR 06/24/2021 [facility] DATE CREATED AUTHOR AUTHOR'S ORGANIZ ATION 03/14/2024 [facility] Care Teams (unrecognized sec tion and content) Investigator Welfare Relationship Specialty Start Date End Date Salinas Travis MD [address] [place] [address] PCP - General Family Medicine 11/15/16 Investigator Welfare Relationship Specialty Start Date End Date Salinas Travis MD [address] [place] [address] PCP - General Family Medicine 11/15/16 Investigator Welfare Relationship Specialty Start Date End Date Salinas Travis MD [address] [place] [address] PCP - General Family Medicine 11/15/16 Investigator Welfare Relationship Specialty Start Date End Date Salinas Travis MD [address] [place] [address] PCP - General Family Medicine 11/15/16 Investigator Welfare Relationship Specialty Start Date End Date Salinas Travis MD [address] [place] [address] PCP - General Family Medicine 11/15/16 Investigator Welfare Relationship Specialty Start Date End Date Salinas Travis MD [address] [facility] [address] [place] [address] PCP - General Family Medicine 11/15/16 Investigator Welfare Relationship Specialty Start Date End Date Salinas Travis MD [address] [facility] [address] [place] [address] PCP - General Family Medicine 11/15/16 Investigator Welfare Relationship Specialty Start Date End Date Salinas Travis MD [address] [facility] [address] [place] [address] PCP - General Family Medicine 11/15/16 FOR RECORDS PERTAINING TO PATIENTS WHO ARE OR HAVE BEEN ENROLLED IN A CHEMICAL DEPENDENCY/SUBSTANCEABUSE PROGRAM, SOME INFORMATION MAY BE OMITTED. This clinical summary was aggregated from multiple sources. Caution should be exercised in using it in the provision of clinical care. This summary normalizes information from multiple sources, and as a consequence, information in this document may materially change the coding, format and clinical context of patient data. In addition, data may be omitted in some cases. CLINICAL DECISIONS SHOULD BE BASED ON THE PRIMARY CLINICAL RECORDS. [facility] [employer] [facility]. provides no warranty or guarantee of the accuracy or completeness of information in this document.
[2024-03-21 02:16] LABS: International Normalized Ratio 1.2; Prothrombin Time (Protime)PT. 14.7 SECONDS (11.7-14.9)
[2024-03-21 02:17] LABS: Partial Thromboplast Time 27.3 Seconds (24.1-36.2)
--- NOTE | 2024-03-21 02:41 | EDS_ITS ---
HPI History of Present Illness Chief Complaint: Abd Pain Informant: patient and spouse/S.O. 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 He is currently on Xarelto. He states he has not had a blood clot for almost 10 years. He states that there is been no recent trauma or excessive activity but he has noticed pain along the right lower abdomen that does worsen with motion. He states that he felt this could be arthritis and is taken Tylenol without any improvement. He states he feels that the pain has worsened in the last 1 to 2 days. He denies any fevers chills diarrhea dysuria nausea or vomiting but with the worsening pain presents for evaluation [facility] Medical History TGA (transient global amnesia) Hypertension Factor II deficiency Home Medications ?Medication ?Instructions ?Recorded ?Last Taken ?Type omeprazole 40 mg capsule,delayed 1 tab PO DAILY gerd 10/04/13 04/18/18 06:00 History release losartan 50 mg tablet 50 mg PO DAILY bp 04/16/15 10/28/15 History metoprolol tartrate 25 mg tablet 25 mg PO DAILY blood pressure 01/24/19 Unknown History acetaminophen 500 mg capsule 1,000 mg PO Q8H PRN Pain 10/27/20 Unknown History rivaroxaban 10 mg tablet 10 mg PO DAILY #90 tabs 04/07/23 Unknown Rx mometasone 50 mcg/actuation nasal 2 spray intranasal DAILY 03/20/24 Unknown History spray (Nasonex 24hr Allergy) oxycodone-acetaminophen 5 mg-325 1 tab PO Q6H PRN pain 3 days #12 03/21/24 Unknown Rx mg tablet (Percocet) tabs Allergy/AdvReac Type Severity Reaction Status Date / Time cyclobenzaprine HCl (From Allergy Severe Swelling Verified 03/20/24 20:28 Flexeril) ketorolac tromethamine (From Allergy Severe Swelling Verified 03/20/24 20:28 Toradol) levofloxacin (From Levaquin) Allergy Severe Anaphylaxis Verified 03/20/24 20:28 meloxicam Allergy Severe Swelling Verified 03/20/24 20:28 orphenadrine citrate (From Allergy Severe Swelling Verified 03/20/24 20:28 Norflex) Penicillins Allergy Severe Rash Verified 03/20/24 20:28 triamcinolone acetonide Allergy Severe Swelling Verified 03/20/24 20:28 (From Kenalog) Family History Father Arthritis Hypertension Mother Hypertension Surgical History H/O sinus surgery History of left hip replacement History of repair of anterior cruciate ligament of left knee History of repair of anterior cruciate ligament of right knee History of repair of rotator cuff History of shoulder surgery Hx of tonsillectomy Social History household members: spouse Smoking Status: Never smoker alcohol intake: never substance use type: does not use ROS ROS ED Constitutional Constitutional ED: Denies chills or fever(s) Eyes Eyes: Denies blurry vision or change in vision ENT ENT ED: Denies sore throat Cardiovascular Cardiovascular: Denies chest pain Respiratory/Chest Respiratory/Chest: Denies cough or dyspnea Gastrointestinal Gastrointestinal: Reports abdominal pain; Denies diarrhea, melena, nausea or vomiting Genitourinary Genitourinary ED: Denies dysuria or hematuria Musculoskeletal Musculoskeletal: Reports back pain and other Details: Positive right hip pain Integumentary Denies Abrasions or rash Neurologic Neurologic: Denies headache(s) Hematologic/Lymphatic Hematologic/Lymphatic: Reports easy bleeding and easy bruising EXAM Physical Exam Const Vital Signs: 03/20/24 20:30 03/20/24 23:29 03/21/24 01:00 Temperature 96.2 F L Temperature Source Temporal Pulse Rate 58 L 48 L 55 L Respiratory Rate 16 16 16 Blood Pressure 130/83 H 141/88 H 122/85 H Blood Pressure Mean 98 105 97 Pulse Ox 98 98 98 Oxygen Delivery Method Room Air Room Air Room Air 03/21/24 03:13 Temperature 98 F Temperature Source Pulse Rate 57 L Respiratory Rate 18 Blood Pressure 124/76 H Blood Pressure Mean 92 Pulse Ox 98 Oxygen Delivery Method Positive well nourished and well developed General Appearance ED: well developed; Negative for pallor HEENT HEENT Narrative: Normocephalic atraumatic Eyes PERRL and EOMs intact bilaterally General Eye ED: Negative for scleral icterus Neck supple Neck Narrative: No nuchal rigidity or meningeal signs Chest Wall palpation of chest normal Resp normal respiratory effort and clear to auscultation bilaterally Cardio regular rate and regular rhythm Rate: other Other Details: Heart is regular rate and rhythm without murmurs rubs or gallops GI normal to inspection, nondistended, normoactive bowel sounds, non-tender, non- distended and no masses GI Narrative: No voluntary guarding or rigidity or pulsatile mass. No obvious hernia noted Auscultation: normoactive bowel sounds Palpation: soft Narrative: No obvious hernia palpated Back/Spine Back/Spine Narrative: Positive right CVA pain present No bony deformity or step-off of the thoracic or lumbar spine no midline tenderness to palpation Patient does have increased pain along the right paralumbar muscle belly region with extension No overlying soft tissue changes to suggest trauma or infection Extremity normal to inspection Extremity Narrative: No asymmetric edema no pitting edema negative Homans' sign noted Neuro oriented x3, CN's II-XII intact bilaterally and no sensory deficits noted Sensorium / Orientation: alert Motor Exam: strength 5/5 throughout Psych mental status grossly normal Skin no rashes or lesions noted and no wounds Skin Narrative: No overlying erythema or warmth to suggest infection no abrasions or ecchymosis to suggest trauma General Skin Exam: Negative for jaundice or pallor MDM MDM MDM Narrative Medical decision making narrative: Patient presented to the ER with stable vitals and reported pain along the right lower abdomen/hip that was worse with motion without trauma. On exam he also had right CVA pain. There is concern for kidney stone versus UTI versus pyelonephritis versus hernia as a cause of his symptoms. Therefore basic labs with a UA and a CT of the abdomen and pelvis without contrast was obtained. The patient did have concern for potential DVT because of his history despite the fact he has been taking Xarelto and has not missed any doses. Therefore D-dimer was added. Blood work revealed no clinically significant findings and urine sample showed no sign of infection. CT scan revealed no kidney stone or signs of appendicitis or obvious hernia. It did document swelling to the iliac us muscle consistent with a hematoma/hemorrhage. The patient's initial hemoglobin and hematocrit was obtained around 830. Therefore in order to ensure there was no significant bleeding a repeat H&H was obtained roughly 6 hours later. There was only a drop of 1 point from 15.7-14.6. Therefore with no signs of significant bleeding I do not feel there is need for reversal of his anticoagulation. However as continuing the Xarelto could prolong or worsen his spontaneous hemorrhage I did discuss the case with his oncologist/infectious disease technician Dr. Vann. He agrees that as the patient's H&H is stable as well as his blood pressure there is no need for reversal but that any type of change of anticoagulation is still anticoagulation which could worsen his symptoms. Therefore he recommends that the patient's Xarelto be stopped and he follow-up with him in the office. This plan of care was discussed with the patient and and they are agreeable to it and therefore as he remains hemodynamically stable without need for transfusion and his pain has been controlled he is otherwise safe for discharge History & Record Review Discussion w/independent historian: Patient and Significant other Lab Data Attestation: I reviewed the patient's lab results. Labs: Laboratory Results - last 24 hr 03/20/24 03/20/24 03/21/24 20:18 20:40 01:54 WBC 6.8 7.1 RBC 5.11 4.78 Hgb 15.7 14.6 Hct 44.8 41.8 MCV 87.7 87.4 MCH 30.7 30.5 MCHC 35.0 34.9 RDW Std Deviation 42.1 41.7 RDW Coeff of Юлия 13.2 13.1 Plt Count 211 191 MPV 9.1 9.1 Immature Gran % (Auto) 0.700 0.800 Neut % (Auto) 66.1 63.6 Lymph % (Auto) 20.7 22.5 Prowers % (Auto) 9.1 9.8 Eos % (Auto) 2.8 2.7 Baso % (Auto) 0.6 0.6 Absolute Neuts (auto) 4.5 4.5 Absolute Lymphs (auto) 1.41 1.60 Nucleated RBC % 0 0 PT 14.7 INR 1.2 APTT 27.3 D-Dimer Quant (PE/DVT) 0.27 Sodium 138 Potassium 4.0 Chloride 109 H Carbon Dioxide 27.0 Anion Gap 2 L BUN 24 H Creatinine 1.13 Estim Creat Clear Calc 65.71 Est GFR (MDRD) Af Amer 83 Est GFR (MDRD) Non-Af 68 BUN/Creatinine Ratio 21.2 H Glucose 124 H Calcium 8.9 Total Bilirubin 0.70 AST 24 ALT 27 Alkaline Phosphatase 76 Total Protein 7.0 Albumin 3.7 Globulin 3.3 Albumin/Globulin Ratio 1.1 Urine Color Yellow Urine Clarity Clear Urine pH 5.0 Ur Specific Newton 1.025 Urine Protein 30 H Urine Glucose (UA) Normal Urine Ketones Negative Urine Occult Blood 10 H Urine Nitrite Negative Urine Bilirubin Negative Urine Urobilinogen Normal Ur Leukocyte Esterase 25 H Urine RBC 0-5 SEEN Urine WBC 0-5 SEEN Ur Squamous Epith Cells 0 SEEN Urine Bacteria RARE Urine Mucus 0 SEEN Radiography Diagnostic Testing: Clinical Impression(s) from Imaging Studies Abdomen/Pelvis CT 03/21/24 00:45 IMPRESSION: 1. Dense enlargement of the right iliacus muscle with associated mild dense status stranding in the right retroperitoneum suggesting hemorrhage in the right iliacus muscle and retroperitoneal hemorrhage. 2. Left total hip arthroplasty. Components appear well seated. Electronically Signed: Eder Garcia MD at 1:30 EDT , ADDENDUM: 03/21/24 0154 IMPRESSION: 1. Dense enlargement of the right iliacus muscle with associated mild dense status stranding in the right retroperitoneum suggesting hemorrhage in the right iliacus muscle and retroperitoneal hemorrhage. 2. Left total hip arthroplasty. Components appear well seated. N.B. : The above Results were Read Back by Eder Garcia MD to Israel Michelle DO, and understanding confirmed on 03/21/2024 01:47:57 (ET). 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, Current use of long-term anticoagulation Instructions: ED Hematoma Prescriptions: New oxycodone-acetaminophen [Percocet] 5-325 mg tablet 1 tab PO Q6H PRN (Reason: pain) 3 Days Qty: 12 0RF No Action omeprazole 40 MG capsule,delayed release(DR/EC) 1 tab PO DAILY Patient Comments: reflux losartan 50 MG tablet 50 mg PO DAILY Patient Comments: blood pressure metoprolol tartrate 25 MG tablet 25 mg PO DAILY acetaminophen 500 mg Capsule 1,000 mg PO Q8H PRN (Reason: Pain) mometasone [Nasonex 24hr Allergy] 50 mcg/actuation spray,non-aerosol 2 spray intranasal DAILY Rx Instructions: administer into each nostril rivaroxaban 10 mg tablet 10 mg PO DAILY Qty: 90 3RF Primary Care Provider: Kayla Escoot Referrals: Kayla Escoto MD [Primary Care Provider] - Kaushik Vann MD [Med Staff - Active Staff] - Activity Restrictions/Additional Instructions: Hold your Xarelto until you are reevaluated by Dr. Vann. Call his office today to schedule an appointment for Monday, March 25. If you develop dizziness/lightheadedness passing out or increased pain then please return to the ER for repeat evaluation in order to ensure that your bleeding is not expanding. Otherwise you may perform normal activities of daily living but please do not perform any vigorous exercise or lift pull or push over 20 pounds as this could exacerbate your symptoms Print Language: Yakut Disposition Disposition: Home, Self Care Discharge Date/Time: 03/21/24 03:13
[2024-03-21] MEDS: oxyCODONE 5 MG Tablet PO (02:47)
[2024-03-21 03:13] VITALS: BP 124/76; PULSE 57; RESP 18; TEMP 36.6; O2SAT 98
== END 2024-03-21 03:13 | disposition home or self-care (01) ==
PROVIDERS: Emergency Provider Emergency Medicine; PCP Family Medicine; Visit Provider Emergency Medicine
DX: K68.3 Retroperitoneal hematoma (principal); D68.69 Other thrombophilia; I10 Essential (primary) hypertension; Z79.899 Other long term (current) drug therapy; Z86.718 Personal history of other venous thrombosis and embolism; Z86.711 Personal history of pulmonary embolism; Z79.01 Long term (current) use of anticoagulants
CPT/HCPCS: 74176; 80053; 81001; 85025; 85379; 85610; 85730; 99284; A4216

== ENCOUNTER → 2024-03-28 | Outpatient (CLI) | payer OTHER, SELFPAY ==
--- NOTE | 2024-03-28 07:50 | CT_ITS ---
STUDY: CT ABDOMEN AND PELVIS WITH CONTRAST REASON FOR EXAM: Male, 68 years old. ILIACUS MUSCLE BLEED. Follow-up examination. RADIATION DOSAGE (If Supplied By Facility): CTDIvol = ( 13.34 ) mGy, DLP = ( 712.12 ) mGycm TECHNIQUE: Transaxial images were obtained from the dome of the diaphragm to the symphysis pubis without oral contrast. IV 100mL Isovue-300 was administered. Sagittal and coronal images were reconstructed. Individualized dose optimization techniques were used for this CT. COMPARISON: Comparison is made with prior study dated March 21, 2024. FINDINGS: The visualized lung bases are unremarkable. The visualized portions of the heart are within normal limits. Normal liver. Normal gallbladder and extrahepatic biliary system. Normal spleen. Normal pancreas. Normal bilateral adrenal glands. Normal right kidney. Normal left kidney. Normal visualized stomach. Normal small intestine. Normal colon. The appendix is visualized and appears normal. Normal abdominal aorta. Normal inferior vena cava. Normal retroperitoneum. Normal urinary bladder. Since prior study, the right iliac is muscle as decreased in size. No new bleeding is seen. It presently measures 4.7 cm x 6.8 cm. Status post left total hip replacement. CT/Abdomen/Pelvis W IV Cont ONLY IMPRESSION: Interval decrease in size of the right iliac is muscle as described. No new bleeding is seen. Electronically Signed: João Heard MD at 12:48 EST ,
== END | disposition home or self-care (01) ==
LOC: CT 07:50
PROVIDERS: PCP Family Medicine; Referring Provider Internal Medicine Medical Oncology; Visit Provider Internal Medicine Medical Oncology
DX: M62.89 Other specified disorders of muscle (principal); R58 Hemorrhage, not elsewhere classified
CPT/HCPCS: 74177; Q9967

== ENCOUNTER → 2024-04-25 | Outpatient (CLI) | payer OTHER, SELFPAY ==
--- NOTE | 2024-04-25 07:52 | CT_ITS ---
STUDY: CT ABDOMEN AND PELVIS WITH CONTRAST REASON FOR EXAM: Male, 68 years old. MUSCLE BLEED. History of hemorrhage into the right iliopsoas muscle. RADIATION DOSAGE (If Supplied By Facility): CTDIvol = ( 16.61 ) mGy, DLP = ( 997.04 ) mGycm TECHNIQUE: Transaxial images were obtained from the dome of the diaphragm to the symphysis pubis without oral contrast. IV 100mL Isovue-300 was administered. Sagittal and coronal images were reconstructed. Individualized dose optimization techniques were used for this CT. COMPARISON: Comparison is made with prior study dated March 28, 2024 and March 21, 2000. FINDINGS: Minimal degree of increased markings at the lung bases suggestive of atelectasis. The visualized portions of the heart are within normal limits. Normal liver. Normal gallbladder and extrahepatic biliary system. Normal spleen. Normal pancreas. Normal bilateral adrenal glands. Normal right kidney. Normal left kidney. Normal visualized stomach. Normal small intestine. Normal colon. The appendix is visualized and appears normal. Normal abdominal aorta. Normal inferior vena cava. Normal retroperitoneum. Normal urinary bladder. Since prior study, there is been further decrease in size of the right iliopsoas muscle. No inflammatory changes are seen at this time. There is a persistent 2 cm x 2.1 cm x 5.1 cm fluid collection in the medial aspect of the distal right psoas muscle. This extends into the insertion of the iliopsoas muscle. This may represent either injury to the distal tendon or resolving hematoma. The patient is status post bilateral hip replacement. CT/Abdomen/Pelvis W IV Cont ONLY IMPRESSION: Interval further decrease in size of the right iliopsoas muscle with the fluid collection in the distal portion of the right iliac this muscle suggestive of either resolving hematoma or possible injury to the distal portion of the tendon. Electronically Signed: João Heard MD at 14:05 EST ,
[2024-04-25 08:36] LABS: CREATININE FINGERSTICK < 1.0 mg/dL (0.70-1.30); EGFR FINGERSTICK > 60.0000 mL/min (>60)
== END | disposition home or self-care (01) ==
LOC: CT 07:52
PROVIDERS: PCP Family Medicine; Referring Provider Internal Medicine Medical Oncology; Visit Provider Internal Medicine Medical Oncology
DX: M62.89 Other specified disorders of muscle (principal)
CPT/HCPCS: 74177; Q9967

== ENCOUNTER → 2024-05-08 | Outpatient (CLI) | payer OTHER, SELFPAY ==
--- NOTE | 2024-05-08 06:38 | MRI_ITS ---
STUDY: MR PELVIS WITH T WITHOUT CONTRAST REASON FOR EXAM: Male, 68 years old. MUSCLE BLEED F/U TO CT ABDOMEN ABNORMALITY RT ILIAC MUSCLE; LBP , RT ANTERIOR GROIN PAIN TECHNIQUE: Standardized fat and water weighted pulse sequences were obtained in all 3 orthogonal planes, pre-and post contrast administration. IV 17ml clariscan was administered for the contrast portion of the examination. COMPARISON: CT of abdomen and pelvis dated April 25, 2024. FINDINGS: CT of abdomen and pelvis dated April 25, 2024 showed a mild to moderately fluid distended right iliopsoas bursa that previously measured 3.92 x 2.42 cm in diameter. On the current study versus still fluid distended but decreased in size to 2.99 x 1.45 cm, and is visibly smaller by approximately 25% since the prior study. Mild bilateral trochanteric gluteal tendinosis and endoscopically is present. A postoperative seroma is present at the lateral aspect of the left hip joint with fibrosis and other postsurgical changes. The left prosthesis is intact without complications. There are no acute fractures or areas of marrow edema or evidence of infection. No aggressive bony or soft tissue abnormalities are present. Mild to moderate right hip osteoarthritis with cortical spurring at the femoral head neck junction and rim of the acetabulum. Diffuse degenerative tearing of the lateral superior labrum of the right hip joint. A small right hip joint effusion is present with mild right hip joint space narrowing. No intramuscular abscess is present. No visualized intramuscular edema or swelling. There is no evidence of intramuscular or subcutaneous hemorrhage. At the origin of the left gluteus minimus muscle. Postcontrast images: No abnormal enhancing lesions of the peritoneum, large bowel, small bowel, or bony structures. Bladder: Normal. No bladder masses or cystitis or bladder wall thickening or intraluminal filling defects. Inguinal regions: No lymphadenopathy or hernia or fluid collection is present. Normal urinary bladder. Normal visualized small intestine. Normal visualized colon. There is no pelvic fluid. There is no pelvic mass lesion or lymphadenopathy. Normal visualized pelvic arteries. There are diffuse degenerative changes of the visualized lumbar spine. Normal abdominal wall. Small bilateral testicular hydroceles are present. MRI/Pelvis W/WO Contrast IMPRESSION: 1. 25% decrease in the size of the right iliopsoas bursa (bursitis). There is no evidence of muscle bleed or aggressive or infectious process. Bursitis is usually inflammatory or related to trauma/sprain injury. Electronically Signed: Elia Mattson MD at 14:54 EST ,
--- NOTE | 2024-05-08 06:38 | MRI_ITS ---
STUDY: MRI RIGHT HIP, WITHOUT AND WITH IV CONTRAST REASON FOR EXAM: Male, 68 years old. Muscle bleed, right iliopsoas muscle. TECHNIQUE: Standardized fat and water weighted pulse sequences were obtained in all 3 orthogonal planes. Following the intravenous administration of 17 mL Clariscan contrast, additional postcontrast imaging was obtained. COMPARISON: CT abdomen/pelvis dated 04/25/2024. FINDINGS: There is degenerative arthrosis of the right hip joint with joint space narrowing, marginal osteophyte formation, high-grade chondromalacia, and small foci of subchondral edema/cyst formation. There is a small right hip joint effusion. There is no demonstrated labral tear. There is no demonstrated fracture. Normal gluteus minimus, medius and iliopsoas tendons and distal insertions. There is a rim-enhancing fluid collection along the medial aspect of the right iliopsoas muscle, overall measuring 3.0 cm AP, 1.9 cm transverse, and 6.6 cm craniocaudad, compatible with iliopsoas bursitis versus resolving hematoma. There is no trochanteric bursitis. Normal superior and inferior pubic rami. Normal pubic symphysis. Normal ischial tuberosity. Normal origin of the hamstring tendons. Normal visualized iliac wing, sacroiliac joint, and sacral ala. Normal visualized soft tissue structures of the pelvis. There is no abnormal enhancing mass. MRI/Lower Ext Joint Only W/WO Cont IMPRESSION: Degenerative arthrosis of the right hip joint with a small right hip joint effusion. 3.0 x 1.9 x 6.6 cm rim-enhancing fluid collection along the medial aspect of the right iliopsoas muscle, compatible with iliopsoas bursitis versus resolving hematoma. Electronically Signed: Leon Chu MD at 13:42 EST ,
== END | disposition home or self-care (01) ==
LOC: MRI 06:36
PROVIDERS: PCP Family Medicine; Referring Provider Internal Medicine Medical Oncology; Visit Provider Internal Medicine Medical Oncology
DX: M62.89 Other specified disorders of muscle (principal); D68.52 Prothrombin gene mutation
CPT/HCPCS: 72197; 73723; A9575

== ENCOUNTER 2024-05-20 11:26 | Day surgery (SDC) | payer OTHER, SELFPAY ==
[2024-05-20 11:27] VITALS: BP 154/104; PULSE 54; RESP 16; TEMP 36.6; O2SAT 99; BMI 26.6
--- NOTE | 2024-05-20 12:49 | ED.VIS.LOWEX ---
HPI History of Present Illness Chief Complaint: Lower Extremity Injury Narrative Narrative: 68-year-old male past medical history of factor II clotting disorder, is usually on Xarelto but was sent in by his manager eligibility, Dr. Vnan, because of a positive DVT study that was performed this morning. Patient relays history that back in February, there was a possible tear in his iliacis muscle. He has been off his Xarelto since February, for the last 2 months. Yesterday, he noticed pain and swelling in his left lower extremity. He states he had an ultrasound performed today, which was positive for DVT. Given his recent muscle tear with hemorrhage, he was told that he cannot have anticoagulation because of the risk of continued bleeding into the muscle and that he needed to be sent to the emergency department for Lyric filter placement. Patient denies any current chest pain or shortness of breath. [facility] Medical History Bilateral swelling of feet and ankles TGA (transient global amnesia) Hypertension Factor II deficiency Home Medications ?Medication ?Instructions ?Recorded ?Last Taken ?Type omeprazole 40 mg capsule,delayed 1 tab PO DAILY gerd 10/04/13 04/18/18 06:00 History release losartan 50 mg tablet 50 mg PO DAILY bp 04/16/15 10/28/15 History metoprolol tartrate 25 mg tablet 25 mg PO DAILY blood pressure 01/24/19 Unknown History acetaminophen 500 mg capsule 1,000 mg PO Q8H PRN Pain 10/27/20 Unknown History rivaroxaban 10 mg tablet 10 mg PO DAILY #90 tabs 04/07/23 Unknown Rx mometasone 50 mcg/actuation nasal 2 spray intranasal DAILY 03/20/24 Unknown History spray (Nasonex 24hr Allergy) baclofen 5 mg tablet 5 mg PO BID 05/13/24 Unknown History naproxen sodium 220 mg capsule 220 mg PO BID PRN 05/13/24 Unknown History (Aleve) Allergy/AdvReac Type Severity Reaction Status Date / Time cyclobenzaprine HCl (From Allergy Severe Swelling Verified 05/20/24 11:30 Flexeril) ketorolac tromethamine (From Allergy Severe Swelling Verified 05/20/24 11:30 Toradol) levofloxacin (From Levaquin) Allergy Severe Anaphylaxis Verified 05/20/24 11:30 meloxicam Allergy Severe Swelling Verified 05/20/24 11:30 orphenadrine citrate (From Allergy Severe Swelling Verified 05/20/24 11:30 Norflex) Penicillins Allergy Severe Rash Verified 05/20/24 11:30 triamcinolone acetonide Allergy Severe Swelling Verified 05/20/24 11:30 (From Kenalog) Family History Father Arthritis Hypertension Mother Hypertension Surgical History History of left hip replacement History of repair of rotator cuff History of shoulder surgery H/O sinus surgery History of repair of anterior cruciate ligament of right knee History of repair of anterior cruciate ligament of left knee Hx of tonsillectomy Social History household members: spouse Smoking Status: Never smoker alcohol intake: never substance use type: does not use ROS ROS ED ROS Narrative Review of systems positive for left leg pain and swelling since yesterday. No chest pain or shortness of breath. No fevers or chills. EXAM Physical Exam Narrative Exam Narrative: Afebrile. Vital signs noted. Nontoxic-appearing. Cardiovascular examination reveals a mild bradycardia. Lungs clear to auscultation bilaterally. Abdomen soft and nontender. Full range of motion left leg. Const Vital Signs: 05/20/24 11:27 05/20/24 13:58 Temperature 98 F 97.5 F L Temperature Source Oral Pulse Rate 54 L 55 L Respiratory Rate 16 16 Blood Pressure 154/104 H 125/90 H Blood Pressure Mean 120 101 Pulse Ox 99 99 Oxygen Delivery Method Room Air MDM MDM MDM Narrative Medical decision making narrative: I reviewed the patient's ED chart. I had a lengthy discussion with him. He states he had an MRI recently that showed that it was most likely bursitis not hemorrhage into his muscle. He is concerned about even if he gets a Davis filter that he is not being restarted on his Xarelto. Patient states that he was diagnosed with a clot in his left lower extremity. I also reviewed the intake note regarding conversation with Dr. Vann. He was reported that he does have clots in the distal vein on the left in the popliteal area. As he reportedly had a recent muscle hemorrhage he needs the IVC filter. I discussed patient with the vascular surgeon, Dr. Mcpherson, who will speak with the patient in the emergency department regarding possible placement in the catheterization lab today and discharged from there. I explained to the patient that although this will not treat the DVT, and that there is always a possibility of the Davis filter clotting off, that it should be placed to prevent propagation of the popliteal DVT to his lungs which is more life-threatening. Vascular surgery will discuss with the patient for the risks and benefits of IVC filter placement. Disposition is pending. After discussion with the patient, Dr. Mcpherson reports that he will take him to the catheterization lab for IVC filter placement. Disposition is admit to surgery/outpatient surgery. Patient is in stable condition. History & Record Review Discussion w/independent historian: Patient Management Discussion w/another healthcare provider: [employer] (Dr. Kevin Mcpherson, vascular surgery) Discharge Plan Dx/Rx/DC Orders Clinical Impression: DVT, popliteal, acute, Muscle hemorrhage, Factor II deficiency Disposition Disposition: Acute Care [facility]
[2024-05-20 13:58] VITALS: BP 125/90; PULSE 55; RESP 16; TEMP 36.4; O2SAT 99
--- NOTE | 2024-05-20 14:05 | HP.PCM_ITS ---
HPI - General HPI Narrative MALVIN ROBLERO, is a 68 M who presents with new onset left lower extremity edema and had an outpatient duplex that revealed popliteal DVT. He has history of prior PE x 2, Factor 2 mutation, and had been on Xarelto 10 mg daily until February. It was stopped due to concern for retroperitoneal/pelvic spontaneous hematoma. This did not require admission or transfusions. Subsequent imaging suggested this appeared more to be bursitis than bleed. After stopping Xarelto in February he has attempted to maintain active lifestyle to avoid contributing to risk for new VTE. For the past 2 weeks his activity has been extremity diminished due to sciatica type symptoms. [facility] Medical History Bilateral swelling of feet and ankles TGA (transient global amnesia) Hypertension Factor II deficiency Home Medications ?Medication ?Instructions ?Recorded ?Last Taken ?Type omeprazole 40 mg capsule,delayed 1 tab PO DAILY gerd 10/04/13 04/18/18 06:00 History release losartan 50 mg tablet 50 mg PO DAILY bp 04/16/15 10/28/15 History metoprolol tartrate 25 mg tablet 25 mg PO DAILY blood pressure 01/24/19 Unknown History acetaminophen 500 mg capsule 1,000 mg PO Q8H PRN Pain 10/27/20 Unknown History rivaroxaban 10 mg tablet 10 mg PO DAILY #90 tabs 04/07/23 Unknown Rx mometasone 50 mcg/actuation nasal 2 spray intranasal DAILY 03/20/24 Unknown His tory spray (Nasonex 24hr Allergy) baclofen 5 mg tablet 5 mg PO BID 05/13/24 Unknown History naproxen sodium 220 mg capsule 220 mg PO BID PRN 05/13/24 Unknown History (Aleve) Allergy/AdvReac Type Severity Reaction Status Date / Time cyclobenzaprine HCl (From Allergy Severe Swelling Verified 05/20/24 11:30 Flexeril) ketorolac tromethamine (From Allergy Severe Swelling Verified 05/20/24 11:30 Toradol) levofloxacin (From Levaquin) Allergy Severe Anaphylaxis Verified 05/20/24 11:30 meloxicam Allergy Severe Swelling Verified 05/20/24 11:30 orphenadrine citrate (From Allergy Severe Swelling Verified 05/20/24 11:30 Norflex) Penicillins Allergy Severe Rash Verified 05/20/24 11:30 triamcinolone acetonide Allergy Severe Swelling Verified 05/20/24 11:30 (From Kenalog) Family History Father Arthritis Hypertension Mother Hypertension Surgical History History of left hip replacement History of repair of rotator cuff History of shoulder surgery H/O sinus surgery History of repair of anterior cruciate ligament of right knee History of repair of anterior cruciate ligament of left knee Hx of tonsillectomy Social History household members: spouse Smoking Status: Never smoker alcohol intake: never substance use type: does not use ROS Constitutional Constitutional: Denies chills, fever(s), frequent falls, lethargy or weakness Eyes Eyes: Denies blind spots, change in vision or loss of vision ENT HEENT: Denies bleeding gums, hoarseness or sore throat Cardiovascular Cardiovascular: Reports leg edema; Denies abdominal pain, bluish discoloration of hand/feet, chest pain with activity, claudication, cold extremities, cyanosis, dyspnea on exertion, erythema on extremities, irregular heart rhythm, leg ulcers, numbness in extremities or weakness in extremities Respiratory/Chest Respiratory/Chest: Denies cough, excessive phlegm production, shortness of breath at rest, shortness of breath with exertion or wheezing Gastrointestinal Gastrointestinal: Denies anorexia, change in stool character, constipation, diarrhea, melena or rectal bleeding Genitourinary Genitourinary: Denies dysuria or hematuria Musculoskeletal Musculoskeletal: Reports back pain and extremity pain; Denies abnormal gait Integumentary Integumentary: Denies erythema, non-healing lesions or wounds Neurologic Neurologic: Denies abnormal speech, focal weakness, headache(s), loss of vision, numbness, paresthesias or sensory deficit Hematologic/Lymphatic Hematologic/Lymphatic: Denies easy bleeding, easy bruising or lymphadenopathy Vital Signs Vital Signs Vital Signs: 05/20/24 11:27 05/20/24 13:58 Temperature 98 F 97.5 F L Temperature Source Oral Pulse Rate 54 L 55 L Respiratory Rate 16 16 Blood Pressure 154/104 H 125/90 H Blood Pressure Mean 120 101 Pulse Ox 99 99 Oxygen Delivery Method Room Air Weight Weight: 191 lb Body Mass Index (BMI) 26.6 Physical Exam Const alert, oriented x3, no apparent distress and healthy appearing General Appearance: cooperative; Negative for combative or lethargic Orientation / Consciousness: awake Exam Limitations: no limitations HEENT Head and Scalp: normocephalic and atraumatic Eyes EOMs intact bilaterally General Eye: normal appearance of both eyes Neck full ROM General: trachea midline Resp normal respiratory effort and no use of accessory muscles Effort and Inspection: Negative for labored, stridor or audible wheezes Cardio regular rate and regular rhythm Peripheral Pulses: brachial pulses present, radial pulses present, popliteal pulses present, posterior tibial pulses present and dorsalis pedis pulses present Back/Spine Cervical Spine: cervical ROM normal Extremity full ROM, normal capillary refill and no clubbing, cyanosis or edema Skin no rashes or lesions noted and no wounds Neuro oriented x3, CN's II-XII intact bilaterally, no focal motor deficits and no sensory deficits noted Psych thought process normal, cooperative, affect normal, speech normal and activity/motor behavior normal Assessment & Plan Assessment/Plan (1) DVT, popliteal, acute: QUALIFIERS: Laterality: left Qualified Code(s): I82.432 - Acute embolism and thrombosis of left popliteal vein PLAN: -popliteal DVT with relatively recent spontaneous bleed -filter indicated, though patient does want to pursue resuming anticoagulation when it is feasible and safe -he has appointment with Dr. Vann next week who manages his anticoagulation; he will discuss potential timing with him then -he is also in process of evaluating his back pain/sciatica and has plans for knee replacement; having filter in place during this may be beneficial as well
--- NOTE | 2024-05-20 14:48 | PCM.OPRPT ---
Operative Report (Standard) Operative Information Date of Procedure: 05/20/24 Pre-Operative Diagnosis: DVT Post-Operative Diagnosis: same Surgery/Procedure Performed: insertion inferior vena cava filter supervisor component assembler: No Type of Anesthesia: Local and Sedation,Conscious Procedure Start Time: 14:30 Procedure Stop Time: 14:45 Select all DRAINS/GRAFTS/IMPLANTS that apply: Implanted device Implanted device details: Bard Sagrario IVC filter Estimated Blood Loss: 4 Specimen collected: No Description of surgery: HPI: Patient is a 68-year-old male with history of multiple pulmonary emboli and factor II mutation. He had been maintained on Xarelto 10 mg a day long-term but in February he developed right pelvic pain and was found to have spontaneous hemorrhage into the musculature of the pelvis. His anticoagulation has been held and this has shown resolution on imaging. He subsequently developed left lower extremity acute onset discomfort and edema and an outpatient duplex today revealed popliteal DVT. He was instructed to present to the emergency room for consideration for IVC filter placement. Given his recent spontaneous bleed while on prophylaxis dose Xarelto and the extent of the thrombus he is felt to be appropriate for filter placement. Description of procedure: Upon obtaining informed consent and verification correct patient procedure site patient was taken to the [facility] where he was positioned prepped and draped in usual sterile fashion. Timeout was performed and conscious sedation administered Versed and fentanyl. Skin overlying the right common femoral vein was anesthetized 1% lidocaine the vessel accessed under ultrasound guidance with a micropuncture needle wire. This then exchanged for a micropuncture sheath through which a hand-injection ilio caval venogram was performed revealing satisfactory positioning with no extravasation or dissection. This also revealed patent nonobstructed right iliac vein system with brisk contrast transit into the vena cava. A J-wire was advanced and the micropuncture sheath exchanged for the Bard Sagrario delivery sheath which was advanced in position at the L2 vertebral body. From this position subtraction venacavogram was performed revealing patent inferior vena cava with caliber at the higher end of the indications; confirmation measurement on recent CT revealed IVC to be 18x26 mm. This also was used to selvin the common points of the renal veins. A Bard [place] inferior vena cava filter was then advanced into position and deployed below the lowest renal vein. Completion venacavogram confirmed satisfactory positioning of tilt. The sheath was then withdrawn and manual pressure held for 5 minutes until hemostasis was obtained. Patient was then taken to the PCU for bedrest prior to discharge to home Surgical Findings: see above Complications Complications: No
== END 2024-05-20 16:56 | disposition home or self-care (01) ==
LOC: ED 13:06 → CLSP 14:27 → ACINP 14:29
PROVIDERS: Emergency Provider Emergency Medicine; PCP Family Medicine; Visit Provider Surgery Trauma Surgery
DX: I82.432 Acute embolism and thrombosis of left popliteal vein (principal); D68.2 Hereditary deficiency of other clotting factors; Z79.01 Long term (current) use of anticoagulants; I10 Essential (primary) hypertension; R60.0 Localized edema; Z86.718 Personal history of other venous thrombosis and embolism; D68.51 Activated protein C resistance; M62.89 Other specified disorders of muscle
CPT/HCPCS: 37191; 76937; 99152; 99153; 99283; C1894; Q9967; C1769; C1880

== ENCOUNTER → 2024-05-20 | Outpatient (CLI) | payer OTHER, SELFPAY ==
--- NOTE | 2024-05-20 10:14 | VDLE_ITS ---
Reason For Study: Swelling BLE RIGHT LEFT GSV is normal. GSV is normal. CFV is compressible, spontaneous, phasic, CFV is compressible, spontaneous, phasic, competent and demonstrates normal competent, and demonstrates normal augmentation. augmentation. FV is compressible, spontaneous, phasic, FV is compressible, spontaneous, phasic, competent and demonstrates normal competent and demonstrates normal augmentation. augmentation. POP V is compressible, phasic, and Lt PopV, Lt T/P Trunk, Lt PTV, Lt PeroV, and INCOMPETENT for greater than 1.0 second. Lt SoleusV are DILATED and NON COMPRESSIBLE T/P Trunk is compressible. consistent with acute DVT PTV is compressible. Lt PopV DVT is not well adhered to vein wall. RT PerV is compressible. Hypoechoic, non vascular structure noted Rt Groin. Procedure This is a venous duplex using B-mode, color flow and spectral Doppler. Exam performed in department. Patient sent to ED per Dr. Vann's office. A preliminary report was called and/or faxed to Dr. Soo De Leon. VL/Venous Duplex US - Thierno Extrem Interpretation Summary Acute deep vein thrombosis is noted in the left popliteal vein, tibioperoneal t runk vein, posterior tibial vein, peroneal vein, soleus vein. Deep veins of the right lower extremity are patent and compressible segmentally . There is no evidence of right lower extremity deep vein thrombosis. The bilateral great sap henous veins appear patent and compressible segmentally. Hypoechoic, non vascular structure noted right groin deep to vessels Ordering Physician: Kaushik Vann Referring Physician: Kayla Escoto Performed By: Rosalia Sanders, VIRIDIANA, RVT
== END | disposition home or self-care (01) ==
PROVIDERS: PCP Family Medicine; Referring Provider Internal Medicine Medical Oncology; Visit Provider Internal Medicine Medical Oncology
DX: R22.43 Localized swelling, mass and lump, lower limb, bilateral (principal); Z86.718 Personal history of other venous thrombosis and embolism
CPT/HCPCS: 93970

== ENCOUNTER → 2024-06-15 | Outpatient (CLI) | payer OTHER, SELFPAY ==
--- NOTE | 2024-06-15 08:03 | MRI_ITS ---
EXAM: MR LUMBAR SPINE WITHOUT INTRAVENOUS CONTRAST CLINICAL INDICATION: lumbar radiculopathy TECHNIQUE: Multiplanar and multisequence MR images of the lumbar spine without intravenous contrast. COMPARISON: Lumbar spine radiographs 05/24/2024 FINDINGS: VERTEBRAE: Multilevel endplate deformities throughout the lumbar spine. No bone marrow edema. SPINAL CORD: Normal. Normal position and signal intensity of the conus medullaris. SOFT TISSUES: Normal. DISCS/SPINAL CANAL/NEURAL FORAMINA: L1-L2: Mild disc space narrowing. Prominent anterior disc osteophyte complex. No posterior disc herniation. No spinal or neural foraminal stenosis. L2-L3: Mild disc space narrowing. Moderate size anterior osteophyte/disc prominence. No posterior disc protrusion. No spinal stenosis. Mild narrowing of the neural foramina related to vertebral body hypertrophy and facet arthropathy. L3-L4: Prominent anterior disc osteophyte complex. No posterior disc herniation. The no spinal stenosis. Severe left and moderate right neural foraminal narrowing related to facet arthropathy. L4-L5: Mild disc space narrowing. Minimal anterior listhesis of L4 on L5. Disc bulging, ligamentous hypertrophy and facet arthropathy results in mild to moderate spinal stenosis. Moderate bilateral neural foraminal narrowing related to facet arthropathy. L5-S1: Normal disc height and morphology. Normal spinal canal and lateral recesses. Normal neuroforamina. MRI/Spine Lumbar (Routine) IMPRESSION: 1. Moderate spinal stenosis at L4-5. 2. Multilevel neural foraminal narrowing as described. Electronically Signed: Tyrese Gavin MD at 16:52 EST ,
== END | disposition home or self-care (01) ==
LOC: MRI 08:01
PROVIDERS: PCP Family Medicine; Referring Provider Student in an Organized Health Care Education/Training Program; Visit Provider Student in an Organized Health Care Education/Training Program
DX: M54.16 Radiculopathy, lumbar region (principal)
CPT/HCPCS: 72148

== ENCOUNTER 2024-07-23 07:30 | Outpatient (RCR) | payer OTHER, SELFPAY ==
--- NOTE | 2024-05-28 16:26 | HP.PTEVAL_ITS ---
Patient's Visit Information Visit Information Visit Information: MALVIN ROBLERO is a 68 year old M referred to Physical Therapy by FRANCISCO Mack with a diagnosis of HEMATOMA. Date of Evaluation: 05/28/24 Physical Therapist: Librado Lazar, PT, Cert MDT, OCS Visit Plan Frequency: 2x /Week Duration: 4 Weeks Plan: PRECAUTION ON BLOOD THINNER FOR DVTS PT INTERVENTIONS INITIALLY MODALITIES ,PROGRESS TO DLS ,,POSTURAL EX'S AND ACTIVITY MODIFICATION Subjective Subjective: This 68 y/o male presents physical therapy with back pain and hemat seth. February he had MRI a muscle tear of iliopsoas bursitis in his hip that hemorrhaged per hematologists. Patient had Doppler to legs. 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 He denies numbness and tingling. He is very active walking and exercising daily. Takes Xarelto for Factor II deficiency. Patient is back to activity with walking. Patient was going to have left TKA on May 06 but was cancelled. Patient had referral to [place] back specialist. Did x-rays Degenerative changes of the spine grade 1 retrolisthesis of L3 on L4. No movement on the flexion-extension views. [place] lumbar specialist plans to MRI lumbar . No medication. Patient has KEYA left . Currently located left lumbar to lateral leg. Aggravating squatting ,lifting ,bending sitting to get up. . Alleviating factors walking . Moving better, As above unable lay in supine affects sleeping ,needs to sleep right.Symptoms described as ache. Coughing/sneezing-. Bowel/bladder-. RTD to [place] when MRI is done. Patient condition affects QOL and function. Patient goals to decrease pain. 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 Left Back: Pain Intensity (Out of 10): 7 Pain Intensity Range: 10 Left Lower Extremity: Pain Intensity (Out of 10): 7 Pain Intensity Range: 10 Objective Objective: POSTURE: mild forward posture rounded shoulders head forward PALAPTION: unremarkable NEURO: denies paresthesia/tingling ,reflexes L3-4,L4-5,L5-S1 1/3 GAIT: ambulates with slow antalgic gait left side MMT: quads/hams 4/5 ,hip flexion 4-/5 ,ankle 4/5 FLEXABILITY: hamstrings mod tight LUMBAR ROM: flexion mod loss ,extension severe loss ,side glides mod loss Special Tests L/S Slump test left side: Positive L/S Slump test right side: Negative L/S Left Straight Leg Raise: Negative L/S Right Straight Leg Raise: Negative Lumbar Standing: Flexion - Mechanical Response: No effect Lumbar Standing: Flexion - Symptoms During Testing: Increases Lumbar Standing: Flexion - Symptoms After Testing: No worse Lumbar Standing: Extension - Mechanical Response: No effect Lumbar Standing: Extension - Symptoms During Testing: No effect Lumbar Standing: Extension - Symptoms After Testing: No effect Lumbar Standing: Right Side Glides - Mechanical Response: No effect Lumbar Standing: Right Side [place] - Symptoms During Testing: No effect Lumbar Standing: Right Side [place] - Symptoms After Testing: No effect Lumbar Standing: Left Side [place] - Mechanical Response: No effect Lumbar Standing: Left Side [place] - Symptoms During Testing: Increases Lumbar Standing: Left Side [place] - Symptoms After Testing: No worse Lumbar Lying: Flexion - Mechanical Response: No effect Lumbar Lying: Flexion - Symptoms During Testing: Increases Lumbar Lying: Flexion - Symptoms After Testing: Worse Lumbar Lying: Extension - Mechanical Response: No effect Lumbar Lying: Extension - Symptoms During Testing: Increases Lumbar Lying: Extension - Symptoms After Testing: No worse Balance/Special Test Scores Oswestry Low Back Score: 35 Goals Goal 1:: Patient to be I with HEP for back Goal Time Frame: 4-6 Weeks Goal 2:: Patient to improve lumbar ROM for function of recovery to put on shoes Goal Time Frame: 4-6 Weeks Goal 3:: Patient will demonstrate 50% improvement with less pain and improved function with ADLS Goal Time Frame: 4-6 Weeks Goal 4:: Patient to normalize gait pattern Goal Time Frame: 4-6 Weeks Goal 5:: Patient will improve back oswestry score by 5 points to improve QOL and function Goal Time Frame: 4-6 Weeks Rehabilitation Potential Physical Therapy Diagnosis: Patient has lumbar pain with radicular symptoms with pain with flexion ,extension increases with positioning and motion testing may need MRI which DR is ordering thus benefit from skilled PT Rehabilitation Potential: Fair Anticipated Interventions Patient/Client Instruction: Educate patient on: Condition and Plan of Care For the Purpose of:: To decrease pain, To increase ROM, To improve muscle performance and motor function, To improve ability to perform ADL's, To increase tolerance to activity/condition/position, To improve ability of physical actions for home/community/work/leisure, To improve health of tissue, To decrease soft tissue restriction, To increase flexibility/ROM and To improve tolerance to ADL's Therapeutic Exercise to Include: Strength training, Postural training, Flexibilty training, Dynamic Lumbar Stabilization and Dodie Exercises For the Purpose of:: To decrease pain, To increase ROM, To improve muscle performance and motor function, To increase tolerance to activity/condition/position, To improve ability of physical actions for home/community/work/leisure, To improve health of tissue, To decrease soft tissue restriction and To increase flexibility/ROM TENS: Yes IF ES: Yes Cryotherapy (ice pack, ice massage): Yes Thermo therapy (hot pack): Yes For the Purpose of:: To decrease pain, To improve nutrient delivery to tissue, To increase oxygenation perfusion, To improve health of tissue and To decrease soft tissue restriction Text: Thank you for the opportunity to evaluate your patient. For Medicare and Medicare HMO plans, please review the plan of care and approve it. It will need to be FAXED BACK to us at [phone] for Medicare purposes. For Medicare only, by signing this I certify the plan of care. Please let me know if there are questions or concerns regarding this plan of care. Physician Signature: Date:
--- NOTE | 2024-07-23 08:13 | HP.PTDCSUM ---
Discharge Summary D/C summary: It has been my pleasure to treat MALVIN ROBLERO referred by FRANCISCO Mack, with the diagnosis of HEMATOMA for a total of 14 visit(s). Discharge Date: Please see the following information for a summary of their discharge status. Subjective Subjective: Provided new medication Cymbalta Will stop PT ,Planning for injections and surgery Pain Left Back: Pain Intensity (Out of 10): 2 Left Lower Extremity: Pain Intensity (Out of 10): 2 Overall Improvement % Improvement: 10 Objective Objective/Function: POSTURE: mild forward posture rounded shoulders head forward PALAPTION: unremarkable NEURO: denies paresthesia/tingling ,reflexes L3-4,L4-5,L5-S1 1/3 GAIT: ambulates with slow antalgic gait left side MMT: quads/hams 4/5 ,hip flexion 4-/5 ,ankle 4/5 FLEXABILITY: hamstrings mod tight LUMBAR ROM: flexion mod loss ,extension severe loss ,side glides mod loss Goals Goal 1:: Patient to be I with HEP for back Goal Progress: Progressing Goal 2:: Patient to improve lumbar ROM for function of recovery to put on shoes Goal Progress: Not Progressing Goal 3:: Patient will demonstrate 50% improvement with less pain and improved function with ADLS Goal Progress: Not Progressing Goal 4:: Patient to normalize gait pattern Goal Progress: Not Progressing Goal 5:: Patient will improve back oswestry score by 5 points to improve QOL and function Goal Progress: Progressing Plan Plan: D/C WILL HAVE KEYA ,TKA LEFT D/C Information d/c sentence: If there are questions or concerns regarding this patient's physical therapy, please feel free to call me at [phone]. Thank you for the referral of this patient. Sincerely, Librado Lazar, PT, Cert MDT, OCS Balance/Gait/Functional tests Balance/Special Test Scores Oswestry Low Back Score: 21 Improvement % Improvement: 10
== END 2024-07-23 19:00 | disposition home or self-care (01) ==
LOC: PT 07:30
PROVIDERS: PCP Family Medicine; Referring Provider Physician Assistant; Visit Provider Physician Assistant
DX: M17.12 Unilateral primary osteoarthritis, left knee (principal); R31.9 Hematuria, unspecified
CPT/HCPCS: 97014; 97035; 97110; 97164; 97530; G0283

== ENCOUNTER → 2024-12-16 | Outpatient (CLI) | payer OTHER, SELFPAY ==
[2024-12-19 10:08] LABS: Antithrombin 3 Function 91 % (75-135); Dilute Russell Viper Venom 37.7 sec (0.0-47.0); Interpretation Comment: (.); PTT-LA 32.6 sec (0.0-43.5); Protein C, Functional 80 % (73-180)
== END | disposition home or self-care (01) ==
LOC: MTLAB 07:55
PROVIDERS: PCP Family Medicine
DX: I82.90 Acute embolism and thrombosis of unspecified vein (principal)
CPT/HCPCS: 36415; 85300; 85302; 85303; 85305; 85306; 86147

== ENCOUNTER → 2024-12-23 | Outpatient (CLI) | payer OTHER, SELFPAY ==
--- OUTSIDE RECORDS SUMMARY | 2024-12-23 22:46 | XMS RPT_ITS | CCD ---
Author Organization [facility] ion [facility] Care Team Providers Care Furniture Manager Name Role Phone Trevor [facility], Allan Alaniz Primary Care Provider Unav ailable Unavailable Primary Care Provider UnavailDr. Salinas Rucker Primary Care Provider Dr. Salinas Ford Referring Provider Dr. Kaushik Vann Attending Provider Salinas Ford MD Primary Care Provider Unavailable Primary Care Provider Unavailwolfgang Erwin MD, Kayla Primary Care Provider [phone] GARY RODRIGUEZ Attending Unavailable Yaima [facility]I, Kayla Primary Care Provider Yaima [facility], Kayla Primary Care Provider Yaima [facility], Kayla Primary Care Provider [phone] Yaima [facility], Kayla Referring Provider [phone] Ericka Viera Attending Provider YAIMA, CHALON Primary Care Unavailable FLORINDA MILTON Referring Unavailabl RADHA Lopez Attending Unavailable YAIMA, CHALON Primary Care Unavailable FLORINDA MILTON Referring Unavailabl RADHA Lopez Attending Unavailable YAIMA, CHALON Primary Care Unavailable SHAILA WALTERS Attending Unavailable JOSUE GARCIA Referring Unavailab JOSUE Lynn Referring Unavailab le CECELIA WRIGHT Attending Unavailable YAIMA, CHALON Primary Care Unavailable YAIMA, CHALON Primary Care Unavailable SHAILA WALTERS Attending Unavailable SELF, SELF Referring Unavailable YAIMA, CHALON Primary Care Unavailable SHAILA WALTERS Attending Unavailable SELF, SELF Referring Unavailable YAIMA, CHALON Primary Care Unavailable SPROCKELSTARR Attending Unavailable SELF, SELF Referring Unavailable YAIMA, CHALON Primary Care Unavailable KEN QUINTANILLA Attending Unavailable SELF, SELF Referring Unavailable YAIMA, CHALON Referring Unavailable YAIMA, CHALON Primary Care Unavailable KEN QUINTANILLA Attending Unavailable YAIMA, CHALON Primary Care Unavailable SHAILA WALTERS Attending Unavailable SELF, SELF Referring Unavailable KOLODYCHJOSUE MONROE Referring Unavailab le YAIMA, CHALON Primary Care Unavailable KOLODYCHJOSUE MONROE Attending Unavailab le KAEDINGNORA Attending Unavailab le FORD, SALINAS R Primary Care Unavailable SELF, SELF Referring Unavailable KAEDINGNORA Referring Unavailab le FORD, SALINAS R Primary Care Unavailable KOLODYCH, JOSUE Talley Attending Unavailab le YAIMA, CHALON Primary Care Unavailable YAIMA, CHALON Referring Unavailable SPROCKEL, STARR Mccarty Attending Unavailable YAIMA, CHALON Primary Care Unavailable KOLODYCHJOSUE MONROE Attending Unavailab le SELF, SELF Referring Unavailable YAIMA, CHALON Primary Care Unavailable SURESH ESCOBEDO Referring Unavailable SURESH ESCOBEDO Attending Unavailable YAIMA, CHALON Primary Care Unavailable SURESH ESCOBEDO Attending Unavailable SELF, SELF Referring Unavailable FORD, SALINAS R Primary Care Unavailable JOSE, JOSUE Talley Attending Unavailab le KOLODYCHJOSUE MONROE Referring Unavailab le KAEDINGNORA Referring Unavailab le KAEDINGNORA Attending Unavailab le FORD, SALINAS R Primary Care Unavailable CECELIA WRIGHT Attending Unavailable YAIMA, CHALON Primary Care Unavailable BOONEODYCHJOSUE MONROE Referring Unavailab le YAIMA, CHALON Primary Care Unavailable KOLODYCHJOSUE MONROE Attending Unavailab le KOLODYCHUKJOSUE Admitting Unavailab le KOLODYCHUKJOSUE Referring Unavailab le FORD, SALINAS R Primary Care Unavailable [facility] Attending Unavailab le KOLODYCHUKJOSUE Admitting Unavailab le KOLODYCHUKJOSUE Referring Unavailab le YAIMA, CHALON Primary Care Unavailable YAIMA, CHALON Referring Unavailable SPROCKEL, STARR C Attending Unavailable YAIMA, CHALON Primary Care Unavailable [facility] Attending Unavailab le SELF, SELF Referring Unavailable YAIMA, CHALON Primary Care Unavailable ARASELI PENN Attending Unavailable JOSUE GARCIA Referring Unavailab le YAIMA, CHALON Primary Care Unavailable KEN QUINTANILLA Referring Unavailable KEN QUINTANILLA Attending Unavailable STARR LINO Attending Provider [phone] STARR LINO Referring Provider Ericka Nunes Attending Unavailable Yaima, Chalon Referring Unavailable Yaima, Chalon Primary Care Unavailable Prah, Kaushik Attending Unavailable Ford, Salinas Primary Care Unavailable Ford, Salinas Referring Unavailable Yaima, Chalon Consulting Unavailable Rohan Ballesteros Attending Unavailabl e Yaima, Chalon Referring Unavailable Yaima, Chalon Primary Care Unavailable Prah, Kaushik Referring Unavailable Yaima, Chalon Primary Care Unavailable Kevin Mcpherson Attending Unavailable Yaima, Chalon Attending Unavailable Yaima, Chalon Primary Care Unavailable PraKaushik dong Referring Unavailable Prah, Kaushik Attending Unavailable Yaima, Chalon Primary Care Unavailable Yaima, Chalon Primary Care Unavailable Shaila Walters Attending Unavailable Shaila Walters Referring Unavailable Israel Michelle Attending Unavailable Yaima, Chalon Primary Care Unavailable Yaima, Chalon Primary Care Unavailable Javid Ness Attending Unavailable Yaima, Chalon Referring Unavailable Yaima, Chalon Referring Unavailable Yaima, Chalon Primary Care Unavailable Marla Jones Attending Unavailable Juliocesar Beck Attending Unavailable PraKaushik dong Attending Unavailable Yaima, Chalon Referring Unavailable Yaima, Chalon Primary Care Unavailable Praiker, Kaushik Attending Unavailable Yaima, Chalon Primary Care Unavailable Yaima, Chalon Referring Unavailable Anabel Salmon NP Attending Unavailable Yaima, Chalon Referring Unavailable Yaima, Chalon Primary Care Unavailable Prah, Kaushik Attending Unavailable Praiker, Kaushik Referring Unavailable Yaima, Chalon Primary Care Unavailable Praiker, Kaushik Attending Unavailable Prah, Kaushik Referring Unavailable Yaima, Chalon Primary Care Unavailable OSBALDO HOWARD Attending Unavailable OSBALDO HOWARD Referring Unavailable Yaima, Chalon Primary Care Unavailable Praiker, Kaushik Referring Unavailable Praiker, Kaushik Attending Unavailable Yaima, Chalon Primary Care Unavailable Yaima, Chalon Attending Unavailable Yaima, Chalon Referring Unavailable Yaima, Chalon Primary Care Unavailable Yaima, Chalon Primary Care Unavailable Kevin Mcpherson Attending Unavailable Yaima, Chalon Primary Care Unavailable Marla Jones Attending Unavailable Marla Jones Referring Unavailable Yaima, Chalon Referring Unavailable Marla Jones Attending Unavailable Kaushik Vann Attending Unavailable Kaushik Vann Attending Unavailable Yaima, Chalon Referring Unavailable Yaima, Chalon Primary Care Unavailable Kaushik Vann Attending Unavailable Yaima, Chalon Referring Unavailable Yaima, Chalon Primary Care Unavailable Allergies Allergy Classification Reported Allergen(s) Allergy Type Date of Onset Reaction(s) Facility (8 sources) cyclobenzaprine; Translations: [cyclobenzaprine HCl] Drug Allergy 1 Swelling [facility] (20 sources) Ketorolac; Translations: [ketorolac tromethamine] Drug Allergy 7 [facility] Work Phone: (10 sources) meloxicam; Translations: [MELOXICAM] Drug Allergy 7 [facility] (8 sources) Orphenadrine; Translations: [orphenadrine citrate] Drug Allergy 1 Swelling [facility] (11 sources) Penicillins; Translations: [PENICILLINS] Allergy to substance 0 Rash [facility] (8 sources) Triamcinolone; Translations: [triamcinolone acetonide] Drug Allergy 1 Swelling [facility] (20 sources) cyclobenzaprine; Translations: [CYCLOBENZAPRINE] Drug Allergy 7 Swelling [facility] (20 sources) meloxicam Drug Allergy 7 Swelling [facility] (20 sources) Orphenadrine; Translations: [ORPHENADRINE] Drug Allergy 7 Swelling [facility] (20 sources) Penicillin G Drug Allergy 0 [facility] Work Phone: (20 sources) Triamcinolone; Translations: [TRIAMCINOLONE] Drug Allergy 7 Swelling [facility] (4 sources) levoFLOXacin Drug Allergy 3 Anaphylaxis [facility] (3 sources) Ketorolac; Translations: [KETOROLAC] Drug Allergy [address] [facility] (1 source) levoFLOXacin Drug Allergy 5 [facility] Repository (1 source) meloxicam Drug Allergy 5 [facility] Repository Medications Current Medications Medication Drug Class(es) Dates Sig (Normalized) Sig (Original) ARIPiprazole 2 mg oral tablet (1 source) [...] MOUTH IN THE MORNING 0 02/27/2016 Active DISABILITY PLACARD (9 sources) Start: 10-30-2024 DISABILITY PLACARD Disability placard end date 10/30/2025 1 Each 10/30/2024 Active fexofenadine hydrochloride 180 mg oral tablet (1 source) Histamine-1 Receptor Antagonist take 1 tablet by mouth once daily fexofenadine (CARINE) 180 MG tablet Take 180 mg by mouth daily. 0 Active levoFLOXacin 500 mg oral tablet (2 sources) Quinolone Antimicrobial Start: 12-18-2020 take 1 tablet by mouth once daily levoFLOXacin (LEVAQUIN) 500 mg tablet Take 500 mg by mouth once daily. 12/18/2020 Active losartan potassium 50 mg oral tablet (20 sources) Angiotensin 2 Receptor Eliot Start: 04-16-2015 take 1 tablet by mouth once daily Losartan 50 MG tablet Active 50 mg PO DAILY April 16, 2015 1:00am bp magnesium oxide 400 mg oral tablet (20 sources) take 1 tablet by mouth once daily in the morning magnesium oxide 400 MG tablet Take 1 tablet by mouth daily every morning. Active metoprolol tartrate 25 mg oral tablet (20 sources) beta-Adrenergic Eliot Start: 11-30-2020 take 1 tablet by mouth twice daily metoprolol tartrate, short acting, (LOPRESSOR) 25 mg tablet Take 25 mg by mouth twice daily. 11/30/2020 Active Start: 01-24-2019 take 1 tablet by letty th once daily Metoprolol Tartrate 25 MG tablet Active 25 mg PO DAILY January 24, 2019 12:00am blood pressure take 0.5 tablet by m outh once daily in the morning metoprolol 25 MG tab regular release Take 0.5 tablets by mouth daily every morning. Active omeprazole 40 mg delayed release oral capsule (20 sources) Proton Pump Inhibitor Start: 10-04-2013 Omeprazole 40 MG capsule,delayed release(DR/EC) Active 1 {tbl} PO DAILY October 04, 2013 12:00am gerd Start: 10-04-2013 take 1 capsule by mo uth once daily omeprazole (PRILOSEC) 40 mg capsule Take 40 mg by mouth once daily. 12/07/2020 Active oxyCODONE hydrochloride 5 mg oral tablet (20 sources) Opioid Agonist Start: 11-05-2024 take 1 tablet by mouth every four hours as needed for pain oxyCODONE 5 MG tablet Indications: Primary osteoarthritis of right hip Take 1 tablet by mouth every 4 hours as needed for Severe Pain for up to 7 days. 42 tablet 11/05/2024 Active Start: 10-29-2024 End: 10-29-2024 take 1 tablet by mouth every four hours as needed oxyCODONE (ROXICODONE) tablet 5 mg Start: 10-29-2024 5 mg, Oral, NEEDED, 1 dose, Starting on Mon10/29/24 at 1108, Until Tu10/29/24 at 1440, Moderate Pain, May give once at least one hour post oxycodone prn order if dose previously documented as ineffective and did not result in adverse effects (RR less than 10, negative change in RASS of 2 or more). , Recovery Start: 04-25-2024 End: 10-29-2024 take 1 tablet by mouth every four hours as needed 5 mg, Oral, EVERY 4 HOURS NEEDED, Starting on 10/29/24 at 1108, Until 10/29/24 at 1757, Moderate Pain, Recovery Start: 04-20-2018 End: 04-27-2018 take 5-10 mg by mouth every four hours as needed for pain Oxycodone 5 MG tablet Discontinued 5 - 10 mg PO EVERY 4 HOURS NEEDED as needed for Mod-Severe Pain (4-10/10) 80 7 0 April 20, 2018 1:00am April 26, 2018 1:00am April 27, 2018 1:09am Presence of left artificial hip joint Start: 04-16-2015 End: 04-16-2015 take 5-10 mg by mouth every four hours as needed for pain Oxycodone 5 MG tablet Discontinued 5 - 10 mg PO EVERY 4 HOURS NEEDED as needed for Moderate Pain (pain scale 4-5) 40 0 April 16, 2015 1:00am April 16, 2015 12:07pm rivaroxaban 20 mg oral tablet (20 sources) Factor Xa Inhibitor Start: 07-18-2024 take 1 tablet by mouth once daily at dinner Rivaroxaban 20 mg tablet Active 20 mg PO daily 90 3 July 18, 2024 1:00am 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 and thrombosis of left popliteal vein must administer with evening meal Start: 01-24-2019 End: 07-18-2024 take 1 tablet by mouth once daily Rivaroxaban 10 mg tablet Discontinued 10 mg PO DAILY 90 3 April 07, 2023 9:12am July 18, 2024 6:35pm Start: 10-30-2015 End: 12-12-2016 take 1 tablet by mouth twice daily at mealtime Rivaroxaban (Xarelto) 15 MG tablet Discontinued 15 mg PO TWICE DAILY WITH MEALS 20 0 October 30, 2015 12:00am December 12, 2016 1:48pm Start: 10-30-2015 End: 04-02-2018 take 1 tablet by mouth once daily Rivaroxaban 20 MG tablet Discontinued 20 mg PO DAILY 90 December 27, 2017 3:59pm April 02, 2018 10:45am VITAMIN D PO (20 sources) take 1 capsule by [facility] once daily in the morning VITAMIN D PO Take 1 capsule by mouth daily every morning. Active Completed/Discontinued Medications Medication Drug Class(es) Dates Sig (Normalized) Sig (Original) acetaminophen 325 mg oral tablet (20 sources) Start: 10-29-2024 End: 10-29-2024 975 mg, Oral, EVERY 6 HOURS, First dose on Mon10/29/24 at 1200, Until Discontinued, Maximum dose of acetaminophen is 4000 mg from all sources in 24 hours., Post-op/Post-Proc Start: 10-29-2024 End: 10-29-2024 take 1 tablet by mouth every six hours as needed 650 mg, Oral, EVERY 6 HOURS NEEDED, Starting on Mon10/29/24 at 1108, Until Mon10/29/24 at 1757, Mild Pain, Contact anesthesiologist prior to administration if patient received acetaminophen perioperatively., Recovery Start: 10-29-2024 End: 10-29-2024 take 4000 mg by mouth every twenty-four hours 975 mg, Oral, ONCE, 1 dose, On Mon10/29/24 at 0800, Maximum dose of acetaminophen is 4000 mg from all sources in 24 hours., Pre-op/Pre-Proc Start: 04-25-2024 End: 10-29-2024 take 2 tablets by mouth three times daily acetaminophen 500 MG tablet Take 2 tablets by mouth 3 times daily. Please start the evening of surgery 100 tablet 10/22/2024 Active Start: 10-27-2020 take 2 capsules by m outh every eight hours as needed for pain Acetaminophen 500 mg Capsule Active 1000 mg PO Q8H as needed for Pain October 27, 2020 12:00am Start: 10-27-2020 take 1000 mg by mout h every eight hours Acetaminophen Active 1000 MG PO Q8H October 27, 2020 12:00am End: 10-29-2024 take 1 tablet by mouth every four hours acetaminophen 325 MG tablet Take 1 tablet by mouth every 4 hours. 10/29/2024 Discontinued (Stop Taking at Discharge) End: 10-29-2024 Acetaminophen (TYLENOL ARTHR ITIS PAIN PO) Take by mouth. 3-4 tabs prn 10/29/2024 Discontinued (Stop Taking at Discharge) Acetaminophen (T YLENOL ARTHRITIS PAIN PO) Take by mouth. 3-4 tabs prn Active acetaminophen 325 mg / oxyCODONE hydrochloride 5 mg oral tablet (2 sources) Opioid Agonist Start: 03-21-2024 End: 04-03-2024 Oxycodone-Acetaminophen (Percocet) 5-325 mg tablet Discontinued 1 {tbl} PO EVERY 6 HOURS as needed for pain 12 3 0 March 21, 2024 April 03, 2024 10:35am Retroperitoneal hemorrhage Hemorrhage, not elsewhere classified baclofen 5 mg oral tablet (2 sources) gamma-Aminobutyri c Acid-ergic Agonist Start: 05-13-2024 End: 05-24-2024 take 1 tablet by mouth twice daily Baclofen 5 mg tablet Discontinued 5 mg PO TWICE A DAY May 13, 2024 1:00am May 24, 2024 2:07pm benzocaine 15 mg / menthol 3.6 mg oral lozenge (1 source) Standardized Chemical Allergen Start: 10-29-2024 End: 10-29-2024 1 lozenge, Oral, EVERY 2 HOURS NEEDED, Starting on Mon10/29/24 at 1108, Until Mon10/29/24 at 1757, Sore Throat, Max 8 lozenges/day Due to product shortages and availability, 15-3.6 MG and 15-2.6 MG strengths of benzocaine-menthol (CEPACOL) lozenges may be used interchangeably at [facility]., Post-op/Post-Proc calcium chloride 0.0014 meq/ml / potassium chloride 0.004 meq/ml / sodium chloride 0.103 meq/ml / sodium lactate 0.028 meq/ml injectable solution (2 sources) Start: 10-29-2024 End: 10-29-2024 Intravenous, at 75 mL/hr, CONTINUOUS, Starting on Mon10/29/24 at 1115, Until Mon10/29/24 at 1757, Post-op/Post-Proc cefadroxil 500 mg oral capsule (7 sources) Cephalosporin Antibacterial Start: 08-15-2017 End: 08-28-2017 take 2 capsules by mouth twice daily Cefadroxil 500 MG capsule Discontinued 1000 mg PO TWICE A DAY 40 0 August 15, 2017 12:00am August 28, 2017 3:42pm Start: 08-15-2017 End: 08-28-2017 take 1000 mg by mouth twice daily Cefadroxil Discontinued 1000 MG PO TWICE A DAY August 15, 2017 12:00am August 28, 2017 3:42pm celecoxib 200 mg oral capsule (1 source) Nonsteroidal Anti-inflammatory Drug Start: 10-29-2024 End: 10-29-2024 take 200 mg by mouth every twelve hours 200 mg, Oral, EVERY 12 HOURS, First dose on Mon10/29/24 at 1115, Until Discontinued, Post-op/Post-Proc diazePAM 5 mg oral tablet (5 sources) Benzodiazepine Start: 03-24-2023 End: 03-20-2024 take 1 tablet by mouth every eight hours as needed for muscle spasms Diazepam 5 mg tablet Discontinued 5 mg PO EVERY 8 HOURS as needed for Muscle Spasm March 24, 2023 12:00am March 20, 2024 11:25pm DULoxetine 60 mg delayed release oral capsule (20 sources) Serotonin and Norepinephrine Reuptake Inhibitor Start: 12-03-2024 take 1 capsule by mouth once daily Duloxetine (Cymbalta) 60 mg capsule,delayed release(DR/EC) Discontinued 60 mg PO daily December 03, 2024 12:00am take 1 capsule by mouth once mary ly DULoxetine [address] Particles capsule DR Take 1 capsule by mouth daily. Active famotidine 20 mg oral tablet (5 sources) Histamine-2 Receptor Antagonist Start: 03-24-2023 End: 03-20-2024 take 1 tablet by mouth twice daily Famotidine (Pepcid) 20 mg tablet Discontinued 20 mg PO TWICE A DAY March 24, 2023 12:00am March 20, 2024 11:25pm 2 ml fentaNYL 0.05 mg/ml injection (1 source) Opioid Agonist Start: 10-29-2024 End: 10-29-2024 25 mcg, Intravenous, Administer over 2 Minutes, EVERY 10 MINUTES NEEDED, 4 doses, Starting on Mon10/29/24 at 1108, Until Mon10/29/24 at 1757, Severe Pain, Recovery gabapentin 100 mg oral capsule (20 sources) Anti-epileptic Agent Start: 10-29-2024 End: 10-29-2024 take 100 mg by mouth every eight hours 100 mg, Oral, EVERY 8 HOURS, First dose on Mon10/29/24 at 1400, Until Discontinued, Post-op/Post-Proc Start: 07-05-2024 take 1 capsule by [facility] three times daily as needed Gabapentin 400 mg capsule Active 400 mg PO THREE TIMES A DAY as needed July 05, 2024 1:00am Start: 06-20-2024 End: 07-05-2024 take 1 mg by mouth three times daily Gabapentin 300 mg capsule Discontinued mg PO 3 times daily June 20, 2024 1:00am July 05, 2024 12:35pm take 1 tablet by letty th three times daily gabapentin 600 MG tablet Take 1 tablet by mouth 3 times daily. Active 2 ml sodium hyaluronate 15 m g/ml prefilled syringe (8 sources) Start: 03-09-2023 End: 03-09-2023 Hyaluronan (ORTHOVISC) injection 30 mg Start: 02-23-2023 End: 02-23-2023 Hyaluronan (ORTHOVISC) injec tion 30 mg Start: 02-16-2023 End: 02-16-2023 Hyaluronan (ORTHOVISC) injec tion 30 mg melatonin 3 mg oral tablet (1 source) Start: 10-29-2024 End: 10-29-2024 take 6 mg by mouth once daily at bedtime as needed 6 mg, Oral, DAILY AT BEDTIME NEEDED, Starting on Mon10/29/24 at 1108, Until Mon10/29/24 at 1757, Insomnia, Post-op/Post-Proc mometasone furoate 0.05 mg/actuat metered dose nasal spray (20 sources) Corticosteroid Start: 10-04-2013 End: 05-24-2024 take 50 ug nasal route once daily Mometasone (Nasonex 24hr Allergy) 50 mcg/actuation spray,non-aerosol Discontinued 2 NMA INTRANASAL DAILY March 20, 2024 12:00am May 24, 2024 2:07pm administer into each nostril Start: 10-04-2013 Mometasone (Na sonex) 1 SPRAY spray,non-aerosol Active 1 SPRAY NASAL DAILY October 04, 2013 12:00am End: 10-29-2024 MOMETASONE FUROATE NA Indica tions: Complete tear of right rotator cuff , Essential hypertension , Gastroesophageal reflux disease with esophagitis by Nasal route as needed.. 10/29/2024 Discontinued (Stop Taking at Discharge) mometasone (NASO NEX) 50 mcg/actuation nasal spray Use 2 Sprays in the nose once daily. Active MOMETASONE FUROA TE NA Indications: Complete tear of right rotator cuff , Essential hypertension , Gastroesophageal reflux disease with esophagitis by Nasal route as needed.. Active MOMETASONE FUROA TE NA Indications: Complete tear of right rotator cuff , Essential hypertension , Gastroesophageal reflux disease with esophagitis by Nasal route as needed.. 0 Active mupirocin 0.02 mg/mg topical ointment (14 sources) RNA Synthetase Inhibitor Antibacterial Start: 10-15-2024 End: 10-29-2024 mupirocin 2% Ointment 1 Application by Nasal route every 8 hours. Apply a small amount in each nostril twice daily for 5 days prior to surgery. 22 g 10/15/2024 10/29/2024 Discontinued (Stop Taking at Discharge) Start: 04-23-2024 End: 10-29-2024 apply 22 g nasal route twice daily Mupirocin 2 % ointment Indications: Pre-operative examination for internal medicine Apply a small amount in each nostril twice daily for 5 days prior to surgery. 22 g 04/23/2024 10/29/2024 Discontinued (Stop Taking at Discharge) naproxen sodium 220 mg oral capsule (2 sources) Nonsteroidal Anti-inflammatory Drug Start: 05-13-2024 End: 05-24-2024 take 1 capsule by mouth twice daily as needed Naproxen Sodium (Aleve) 220 mg capsule Discontinued 220 mg PO TWICE A DAY as needed May 13, 2024 1:00am May 24, 2024 2:07pm Ondansetron (ZOFRAN-ODT) disintegrating tablet 4 mg (1 source) Start: 10-29-2024 End: 10-29-2024 take 1 tablet by mouth every four hours as needed Ondansetron (ZOFRAN-ODT) disintegrating tablet 4 mg polyethylene glycol 3350 [id number] mg powder for oral solution (1 source) Osmotic Laxative Start: 10-29-2024 End: 10-29-2024 17 g, Oral, DAILY, First dose on Mon10/29/24 at 1115, Until Discontinued, Post-op/Post-Proc polyvinyl alcohol 0.014 ml/ml / povidone 6 mg/ml ophthalmic solution (1 source) Start: 10-29-2024 End: 10-29-2024 take 1 drop(s) into the eye(s) every two hours as needed 1 drop, Both Eyes, EVERY 2 HOURS NEEDED, Starting on Mon10/29/24 at 1108, Until Mon10/29/24 at 1757, Dry Eyes, Other, Itchy eyes, Patient may self-administer., Post-op/Post-Proc povidone-iodine (3M SKIN and NASAL ANTISEPTIC) 5 % topical solution 1 Application (1 source) Start: 10-29-2024 End: 10-29-2024 1 Application, Nasal, 60 MIN PRE-OP, 1 dose, On Mon10/29/24 at 0800, (1) Use a tissue to clean the inside of both nostrils including the inside tip of the nostril. (2) Tilting the bottle slightly, dip one swab into solution and stir vigorously for 10 seconds. Withdraw the swab slowly to avoid wiping solution off during removal. (3) Insert swab comfortably into one nostril and rotate for 15 seconds covering all surfaces. Then focus on the inside tip of nostril and rotate for an additional 15 seconds. (4) Using a new swab, repeat steps 2 & 3 with the other nostril. (5) Repeat the application in both nostrils using a fresh swab each time. (6) Do not blow nose. If solution drips out of nose, it can be lightly dabbed with a tissue., Pre-op/Pre-Proc predniSONE 20 mg oral tablet (5 sources) Start: 03-24-2023 End: 03-20-2024 take 3 tablets by mouth once daily Prednisone 20 mg tablet Discontinued 60 mg PO DAILY March 24, 2023 12:00am March 20, 2024 11:25pm Start: 03-24-2023 take 60 mg by mouth once daily Prednisone Active 60 MG PO DAILY March 24, 2023 12:00am prochlorperazine 5 mg/ml injectable solution (1 source) Phenothiazine Start: 10-29-2024 End: 10-29-2024 take 5 mg intravenously every hour as needed 5 mg, Intravenous, EVERY 1 HOUR NEEDED, 2 doses, Starting on Mon10/29/24 at 1108, Until Mon10/29/24 at 1757, Nausea / Vomiting, FIRST Line antiemetic, Do not administer within 6 hours of intra-operative dose. Maximum 40mg/day. For IV route: Give undiluted by slow IV push at a rate of 5 mg/min., Recovery sennosides, snf 8.6 mg oral tablet (6 sources) Start: 10-29-2024 End: 10-29-2024 take 17.2 mg by mouth once daily 17.2 mg, Oral, DAILY, First dose on Mon10/29/24 at 1115, Until Discontinued, Post-op/Post-Proc Start: 10-22-2024 End: 11-21-2024 take 2 tablets by mouth once daily Senna 8.6 MG tablet Take 2 tablets by mouth daily. 60 tablet 10/22/2024 11/21/2024 Active 250 ml sodium chloride 9 mg/ml injection (1 source) Start: 10-29-2024 End: 10-29-2024 Intravenous, at 20 mL/hr, NEEDED, Starting on Mon10/29/24 at 1108, Until Mon10/29/24 at 1757, Carrier Fluid - See Admin. Inst, 250mL 0.9NS to be used as carrier fluid for intermittent small volume or piggyback medication administration as needed. Infusion rate of the carrier fluid should be set at 20 mL/hr unless the rate as the intermittent medication is less than 20 mL/hr. For intermittent medications with a rate less than 20 mL/hr set the carrier fluid at that rate of the intermittent or piggy back medication., Post-op/Post-Proc tamsulosin hydrochloride 0.4 mg oral capsule (15 sources) alpha-Adrener gic Eliot Start: 12-03-2024 take 1 capsule by mouth once daily Tamsulosin (Flomax) 0.4 mg capsule Discontinued 0.4 mg PO daily December 03, 2024 12:00am Start: 10-29-2024 End: 10-29-2024 take 0.4 mg by mouth once 0.4 mg, Oral, ONCE, 1 dose, On Mon10/29/24 at 1515, Slow release product. 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 Initiate antibiotic administration 60-120 minutes prior to surgical incision (depending on Administer Over Time). 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 Complications of surgical procedures or medical care (5 sources) Drug therapy finding; Translations: [Unspecified adverse effect of drug or medicament, initial encounter] 03-24-2023 Episodic Deficiency and other anemia (7 sources) Iron deficiency anemia; Translations: [Iron deficiency anemia, unspecified] 04-18-2018 Episodic Esophageal disorders (20 sources) Gastroesophageal reflux disease; Translations: [Gastro-esophageal reflux disease without esophagitis] Onset: 3 01-08-2013 Chronic Esophageal disorders (2 sources) Esophageal disorders; Translations: [Gastro-esophageal reflux disease with esophagitis, without bleeding] Onset: 3 Essential hypertension (20 sources) Hypertensive disorder; Translations: [Essential (primary) hypertension] Onset: 3 01-08-2013 Chronic Osteoarthritis (15 sources) Osteoarthritis of left knee joint; Translations: [Unilateral primary osteoarthritis, left knee] Onset: 5 01-05-2023 Chronic Other aftercare (3 sources) Long-term current use of anticoagulant; Translations: [group home (current) use of anticoagulants] 04-24-2024 Episodic Other circulatory disease (2 sources) Inferior vena cava filter in situ; Translations: [Presence of other vascular implants and grafts] 12-03-2024 Chronic Other circulatory disease (2 sources) Retroperitoneal hemorrhage; Translations: [Retroperitoneal hemorrhage] 03-29-2024 Episodic Other connective tissue disease (6 sources) History of repair of hip joint; Translations: [Presence of right artificial hip joint] 11-13-2024 Chronic Other connective tissue disease (2 sources) Presence of right artificial hip joint; Translations: [Presence of right artificial hip joint] Onset: 5 Chronic Other connective tissue disease (2 sources) Hemorrhage of muscle; Translations: [Other specified disorders of muscle] 05-28-2024 Episodic Comment on above: CT 04/25/2024 shows d ecrease in R iliacus muscle bleed. + Fluid collection R groin area.MRI shows Improving bursitis/fluid collection of R iliopsoas muscle/tendon. Other non-traumatic joint disorders (14 sources) Hip pain; Translations: [Pain in left hip] 04-18-2018 Episodic Other non-traumatic joint disorders (1 source) Pain in left hip; Translations: [Pain in joint, pelvic region and thigh] Episodic Other non-traumatic joint disorders (2 sources) Pain in right hip; Translations: [Pain in right hip] Onset: 5 Episodic Other upper respiratory infections (5 sources) Pharyngitis; Translations: [Acute pharyngitis, unspecified] 03-24-2023 Episodic Phlebitis; thrombophlebitis and thromboembolism (20 sources) H/O: thromboembolism; Translations: [Personal history of other venous thrombosis and embolism] Onset: 5 Episodic Comment on above: Left Popliteal DVT S /P GF Filter placement.Started on Xarelto 20mg daily. Pulmonary heart disease (15 sources) Pulmonary embolism; Translations: [Other pulmonary embolism without acute cor pulmonale] 04-18-2018 Episodic Residual codes; unclassified (1 source) Amnesia; Translations: [Other amnesia] Episodic Residual codes; unclassified (7 sources) Acute confusion; Translations: [Disorientation, unspecified] 10-27-2020 Episodic Spondylosis; intervertebral disc disorders; other back problems (3 sources) Degeneration of lumbar intervertebral disc; Translations: [Degeneration of intervertebral disc of lumbar region, unspecified whether pain present] 07-17-2024 Chronic Transient cerebral ischemia (3 sources) Transient global amnesia; 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] Onset: 1 Chronic Unclassified (2 sources) New Patient; Translations: [New Patient] Onset: 5 Unclassified (1 source) Other intervertebral disc degeneration, lumbar region without mention of lumbar back pain or lower extremity pain; Translations: [Other intervertebral disc degeneration, lumbar region without mention of lumbar back pain or lower extremity pain] Onset: 5 Unclassified (1 source) Low back pain, unspecified; Translations: [Low back pain, unspecified] Onset: 5 Past or Other Problems Problem Classification Problem Date Documented Date Episodic/Chronic Abdominal pain (1 source) Unspecified abdominal pain; Translations: [Unspecified abdominal pain] Onset: 04-09-2024 Episodic Allergic reactions (20 sources) H/O: non-drug allergy; Translations: [Allergy status to unspecified drugs, medicaments and biological substances status] Onset: 01-08-2013 01-08-2013 Episodic Deficiency and other anemia (1 source) Iron deficiency anemia, unspecified; Translations: [Iron deficiency anemia, unspecified] Onset: 07-11-2024 Episodic Diabetes mellitus without complication (1 source) Hyperglycemia, unspecified; Translations: [Hyperglycemia, unspecified] Onset: 01-25-2024 Episodic Mood disorders (14 sources) Mood disorders Onset: 08-12-2024 Resolved: 12-11-2024 08-12-2024 Other connective tissue disease (20 sources) Full thickness rotator cuff tear; Translations: [Complete rotator cuff tear or rupture of right shoulder, not specified as traumatic] Onset: 11-15-2016 11-15-2016 Episodic Other connective tissue disease (20 sources) Nontraumatic complete rupture of rotator cuff of left shoulder; Translations: [Complete rotator cuff tear or rupture of left shoulder, not specified as traumatic] Onset: 10-02-2019 10-02-2019 Episodic Other connective tissue disease (2 sources) Other specified disorders of muscle; Translations: [Other specified disorders of muscle] Onset: 06-05-2024 Episodic Other lower respiratory disease (2 sources) Shortness of breath; Translations: [Shortness of breath] Onset: 03-13-2024 Episodic Other non-traumatic joint disorders (7 sources) Pain in left knee; Translations: [Pain in joint, lower leg] Onset: 02-21-2024 01-05-2023 Episodic Other screening for suspected conditions (not mental disorders or infectious disease) (20 sources) CT of head abnormal; Translations: [Abnormal findings on diagnostic imaging of skull and head, not elsewhere classified] Onset: 01-08-2013 01-08-2013 Episodic Other skin disorders (1 source) Localized swelling, mass and lump, lower limb, bilateral; Translations: [Localized swelling, mass and lump, lower limb, bilateral] Onset: 06-10-2024 Episodic Spondylosis; intervertebral disc disorders; other back problems (19 sources) Torticollis; Translations: [Torticollis] Onset: 07-02-2024 03-24-2023 Episodic Unclassified (1 source) Patient encounter status 10-21-2024 Unclassified (3 sources) History of repair of hip joint 11-13-2024 Unclassified (1 source) Other intervertebral disc degeneration, lumbar region without mention of lumbar back pain or lower extremity pain; Translations: [Other intervertebral disc degeneration, lumbar region without mention of lumbar back pain or lower extremity pain] Onset: 07-10-2024 Results Test Name Value Interpretation Reference Range Facility Antithrombin 3 Functionon AT3 FUNCTIONAL 91 Normal 75-135 [facility] Comment on above: Result Comment: Dire ct Xa inhibitor anticoagulants such as rivaroxaban, apixaban and edoxaban will lead to spuriously elevated antithrombin activity levels possibly masking a deficiency. Performed at: [address] [id number] Jewel Gauger: La Salinas MD, Phone: [phone] Performed By: #### L 300.8000 #### [facility] [address] [place], [address] Lupus Anticoagulant Compon 0 12-19-2024 aPTT Coag (Bld) [Time] 32.6 s Normal 0.0-43.5 [facility] Comment on above: Performed By: #### L 300.8000 #### [facility] [address] [place] [place], [address] DILUTE PT (dPT) 38.9 sec Normal 0.0-47.6 [facility] Comment on above: Performed By: #### L 300.8000 #### [facility] [address] [place], [place], [id number] [phone] dPT Conf. Ratio 1.16 Ratio Normal 0.00-1.34 [facility] Comment on above: Performed By: #### L 300.8000 #### [facility] [address] [place], [place], [address] DRVVT 37.7 sec Normal 0.0-47.0 [facility] Comment on above: Performed By: #### L 300.8000 #### [facility] [address] [place], [address] Interpretation Comment: Normal . [facility] Comment on above: Result Comment: No l upus anticoagulant was detected. Performed By: #### L 300.8000 #### [facility] [address] [place], [place], [id number] THROMBIN TIME 21.2 sec Normal 0.0-23.0 [facility] Comment on above: Performed By: #### L 300.8000 #### [facility] [address] [place], [place], [id number] Protein C Defic. Profileon 0 12-19-2024 PROTEIN C Ag 45 Low 60-150 [facility] Comment on above: Result Comment: A de ficiency of protein C (PC), either congenital or acquired, increases the risk of thromboembolism. Congenital deficiencies of PC are very rare; acquired PC deficiency is much more common. PC levels can be transiently diminished after an acute thrombotic event. Oral anticoagulant therapy with warfarin will lower PC levels as well as vitamin K deficiency. Acquired deficiency can also occur in individuals with disseminated intravascular coagulation (DIC), sepsis, severe liver disease, nephrotic syndrome, and in inflammatory bowel disease. Levels may be spuriously decreased in individuals with Factor V Leiden. Drug therapy with L-asparaginse, fluorouracil, methotrexate, cyclophosphamide or tamoxifen can also reduce PC levels. It has been suggested that repeat blood sampling and testing after ruling out acquired causes of deficiency should be performed before the patient is diagnosed with congenital Protein C deficiency. Performed By: #### L 300.8000 #### [facility] [address] [place], [address] PROTEIN C,FUNC 80 Normal 73-180 [facility] Comment on above: Performed By: #### L 300.8000 #### [facility] [address] [place], [address] Protein S Antigenon 12-20-19 25 PROTEIN S, FREE 84 Normal 61-136 [facility] Comment on above: Performed By: #### L 300.8000 #### [facility] [address] [place], [address] PROTEIN S,TOTAL 77 Normal 60-150 [facility] Comment on above: Result Comment: This test was developed and its performance characteristics determined by [facility]. It has not been cleared or approved by the Food and Drug Administration. Performed By: #### L 300.8000 #### [facility] [address] [place], [address] L3410.9992on 12-17-2024 [facility] Misc. COMMENT Normal . [facility] Comment on above: Order Comment: [id number] 2B2 ANTIBODIES SERUM RT Result Comment: Test Ordered: [id number] Beta-2 Glycoprotein I Ab,G/M Beta-2 Glycoprotein I Ab, IgG <9 CB Units of Measure: GPI IgG units Reference Range: 0-20 The reference interval reflects a 3SD or 99th percentile interval, which is thought to represent a potentially clinically significant result in accordance with the International Consensus Statement on the classification criteria for definitive antiphospholipid syndrome (APS). J Thromb Haem 2006;4:295-306. Beta-2 Glycoprotein I Ab, IgM <9 CB Units of Measure: GPI IgM units Reference Range: 0-32 The reference interval reflects a 3SD or 99th percentile interval, which is thought to represent a potentially clinically significant result in accordance with the International Consensus Statement on the classification criteria for definitive antiphospholipid syndrome (APS). J Thromb Haem 2006;4:295-306. Performed at: [facility] [id number] Jewel Gauger: Mati Baig PhD, Phone: [phone] Performed By: #### L 4500.0100, L3300.0500, L3100.7275, L3410.9992, L3100.7050 ####[facility] [address] [place], [address] [facility]. COMMENT Normal . [facility] Comment on above: Order Comment: [id number] 4 FACTOR 5LEIDEN MUTATION LAV RT Result Comment: Test Ordered: [id number] Factor V Leiden Mutation Factor V Leiden TG Reference Range: . Test not performed. The required specimen for the test ordered was not received. RECEIVED PLASMA REQUIRES LAVENDER SAMPLE,WHOLE BLOOD CONTACTED JUSTIN AT YOUR FACILITY ON 12-17-2024 Additional Clinical Information: Venous thromboembolism is a multifactorial disease influenced by genetic, environmental, and circumstantial risk factors. The c.1601G>A (p. [id number]) variant in the F5 gene, commonly referred to as Factor V Leiden, is a genetic risk factor for venous thromboembolism. Heterozygous carriers of this variant have a 6- to 8-fold increased risk for venous thromboembolism. Individuals homozygous for this variant (ie, with a copy of the variant on each chromosome) have an approximately 80-fold increased risk for venous thromboembolism. Individuals who carry both a c.*97G>A variant in the F2 gene and Factor V Leiden have an approximately 20-fold increased risk for venous thromboembolism. Risks are likely to be even higher in more complex genotype combinations involving the F2 c.*97G>A variant and Factor V Leiden (PMID: [id number]). Additional risk factors include but are not limited to: deficiency of protein C, protein S, or antithrombin III, age, male sex, personal or family history of deep vein thromboembolism, smoking, surgery, prolonged immobilization, malignant neoplasm, tamoxifen treatment, raloxifene treatment, oral contraceptive use, hormone replacement therapy, and . Management of thrombotic risk and thrombotic events should follow established guidelines and fit the clinical circumstance. This result cannot predict the occurrence or recurrence of a thrombotic event. Comment: Genetic counseling is recommended to discuss the potential clinical implications of positive results, as well as recommendations for testing family members. Genetic Coordinators are available for health care providers to discuss results at [phone] ([phone]). Test Details: Variant Analyzed: c.1601G>A (p. [id number]), referred to as Factor V Leiden Methods/Limitations: DNA analysis of the F5 gene (NM_000130.5) was performed by PCR amplification followed by electrophoresis. The diagnostic sensitivity is >99%. Results must be combined with clinical information for the most accurate interpretation. Molecular-based testing is highly accurate, but as in any laboratory test, diagnostic errors may occur. False positive or false negative results may occur for reasons that include genetic variants, blood transfusions, bone marrow transplantation, somatic or tissue-specific mosaicism, mislabeled samples, or erroneous representation of family relationships. This test was developed and its performance characteristics determined by [facility]. It has not been cleared or approved by the Food and Drug Administration. References: Juanito S, Justin MALONE, Ramirez R, Rickey WW, Beau JH; [employer] Professional Practice and Guidelines Committee. Addendum: [employer] consensus statement on factor V Leiden mutation testing. [employer]. 2020Jul 24. doi: 10.1038/s38702-350-68764-y. PMID: 91496451. Juan ALCALA. Factor V Leiden Thrombophilia. 1998October 02 (Updated 2017May 25). In: Caio MP, Trevor HH, Ricardo RA, et al., editors. Fatou(R) (Internet). [place]): [facility]; 7510-9225. Available from: https://www.ncbi.nlm.nih.gov/books/YUW2361/ Drew S, Justin MALONE, Luigi X, Bandar B, Marcelo EB, Rica P, Lucero CS; [employer] Laboratory Packaging Line Attendant Committee. Venous thromboembolism laboratory testing (factor V Leiden and factor II c. *97G>A), 2018 update: a technical standard of the [employer] and [employer] ([employer]). [employer] Med. 2017;20(12): 3818-8965. doi: 10.1038/r58597-418-7312-s. Epub 2017Feb 23. PMID: 92974870. Reviewed By: AVNESSA DAMON Reference Range: . Performed at: [facility] [id number] Jewel Gauger: Mati Baig PhD, Phone: [phone] Performed at: [facility] [address] [place], [place] [id number] Jewel Gauger: James Chow formerly [facility], Phone: [phone] Performed By: #### L 3410.9992 #### [facility] [address] [place], [address] Dilute Mike's viper venom timeon 12-16-2024 dRVVT Coag (PPP) [Time] 37.7 s 0.0-47.0 [facility] Functional protein C measure menton 12-16-2024 Protein C actual/normal Chromogenic method (PPP) [Rel catalytic activity/Vol] 80 % 73-180 [facility] Platelet poor plasma antithr ombin actual/normal ratio by chromogenic method (relativeon 12-16-2024 Antithrombin actual/normal Chromogenic method (PPP) [Rel catalytic activity/Vol] 91 % 75-135 [facility] Comment on above: Direct Xa inhibitor anticoagulants such as rivaroxaban,apixaban and edoxaban will lead to spuriously elevatedantithrombin activity levels possibly masking a deficiency.Performed at: - [facility] [id number] Director: La Salinas MD, Phone: [phone] Protein C antigen assayon Protein C Ag actual/normal IA (PPP) [Relative mass conc] 45 % Low 60-150 [facility] Comment on above: A deficiency of prot ein C (PC), either congenital oracquired, increases the risk of thromboembolism. Congenitaldeficiencies of PC are very rare; acquired PC deficiency ismuch more common. PC levels can be transiently diminishedafter an acute thrombotic event. Oral anticoagulant therapywith warfarin will lower PC levels as well as vitamin Kdeficiency. Acquired deficiency can also occur inindividuals with disseminated intravascular coagulation(DIC), sepsis, severe liver disease, nephrotic syndrome,and in inflammatory bowel disease. Levels may be spuriouslydecreased in individuals with Factor V Leiden. Drug therapywith L-asparaginse, fluorouracil, methotrexate,cyclophosphamide or tamoxifen can also reduce PC levels.It has been suggested that repeat blood sampling andtesting after ruling out acquired causes of deficiencyshould be performed before the patient is diagnosed withcongenital Protein C deficiency. Protein S measurement in amol telet poor plasma by coagulation assay (units/volume)on 12-16-2024 Protein S Coag Qn (PPP) 77 % 60-150 [facility] Comment on above: This test was develo ped and its performance characteristicsdetermined by [facility]. It has not been cleared orapproved by the Food and Drug Administration. Protein S, freeon 12-16-2024 Protein S Free Ag IA Qn (PPP) 84 % 61-136 [facility] Thrombin timeon 12-16-2024 Thrombin time Coag (PPP) [Time] 21.2 sec 0.0-23.0 [facility] XR HIP RIGHT 2-3 VIEWSon XR HIP RIGHT 2-3 VIEWS EXAM: XR HIP RIGH T 2-3 VIEWS, 12/11/2024 14:32 PM COMPARISON: October 29, 2024 CLINICAL INDICATIONS: eval RELEVANT CLINICAL HISTORY: Z96.641:Status post right hip replacement AP/Cross table lateral of right hip with 30 mm calibration ball, AP Pelvis, low AP pelvis with 30 mm calibration ball.; FINDINGS: 3 images obtained. Soft Tissue: Interval improvement in postoperative changes within the lateral soft tissues. Soft tissue gas has resolved. Bone: No displaced fracture. Subtle lucency through the base of the greater trochanter grossly unchanged. Hip: Status post right total hip arthroplasty. The hardware appears intact. IMPRESSION: Intact right total hip arthroplasty. No new osseous abnormality. Normal [facility] XR Hip - right 2 Viewson IMPRESSION: Intact right total hip arthroplasty. No new osseous abnormality. OLOGY EXAM: XR HIP RIGHT 2 -3 VIEWS, 12/11/2024 14:32 PM COMPARISON: October 29, 2024 CLINICAL INDICATIONS: eval RELEVANT CLINICAL HISTORY: Z96.641:Status post right hip replacement AP/Cross table lateral of right hip with 30 mm calibration ball, AP Pelvis, low AP pelvis with 30 mm calibration ball.; FINDINGS: 3 images obtained. Soft Tissue: Interval improvement in postoperative changes within the lateral soft tissues. Soft tissue gas has resolved. Bone: No displaced fracture. Subtle lucency through the base of the greater trochanter grossly unchanged. Hip: Status post right total hip arthroplasty. The hardware appears intact. RADIOLOGY Alex Jones MD - 12/11/2024 EXAM: XR HIP RIGHT 2-3 VIEWS, 12/11/2024 14:32 PM COMPARISON: October 29, 2024 CLINICAL INDICATIONS: eval RELEVANT CLINICAL HISTORY: Z96.641:Status post right hip replacement AP/Cross table lateral of right hip with 30 mm calibration ball, AP Pelvis, low AP pelvis with 30 mm calibration ball.; FINDINGS: 3 images obtained. Soft Tissue: Interval improvement in postoperative changes within the lateral soft tissues. Soft tissue gas has resolved. Bone: No displaced fracture. Subtle lucency through the base of the greater trochanter grossly unchanged. Hip: Status post right total hip arthroplasty. The hardware appears intact. IMPRESSION IMPRESSION: Intact right total hip arthroplasty. No new osseous abnormality. [facility] Radiology Study observation (narrative) [facility] XR Hip - right 2 ViewsOrdere d By: Alex Jones on 12-11-2024 [facility] Work Phone: MR/Jocelyn 12-03-2024 MR/INDIO [facility]ascular Surgery [address] [place] [address]. [address] [place] [address] OFFICE VISIT Date of Service: 12/03/24 MR#: [id number] Acct: [id number] Name: MALVIN ROBLERO BRANDEN Rep #: [id number] : 1955 Provider: FRANCISCO Raymundo Age/Sex: 69/M Location: [facility] Status: Signed Intake Vital Signs 07/11/24 15:36 12/03/24 08:48 Height 5 ft 11 in Weight: 192 lb BP 116/79 Blood Pressure Location Lt radial Position Sitting Respiration 16 Pulse 65 Pulse Source Monitor Temp 97.5 F L Temp Source Temporal Pulse Oximetry (%) 98 Oxygen Delivery Method room air Intake Visit Reasons: Discuss IVC Removal Is patient in pain?: Yes Allergies cyclobenzaprine HCl (From Flexeril) Allergy (Severe, Verified 12/03/24 08:53) Swelling ketorolac tromethamine (From Toradol) Allergy (Severe, Verified 12/03/24 08:53) Swelling levofloxacin (From Levaquin) Allergy (Severe, Verified 12/03/24 08:53) Anaphylaxis meloxicam Allergy (Severe, Verified 12/03/24 08:53) Swelling orphenadrine citrate (From Norflex) Allergy (Severe, Verified 12/03/24 08:53) Swelling Penicillins Allergy (Severe, Verified 12/03/24 08:53) Rash triamcinolone acetonide (From Kenalog) Allergy (Severe, Verified 12/03/24 08:53) Swelling Medications ???Medication ???Instructions ???Recorded ???Confirmed ???Type omeprazole 40 mg capsule,delayed 1 tab PO DAILY gerd 10/04/1312/03 History release losartan 50 mg tablet 50 mg PO DAILY bp 04/16/15 5 History metoprolol tartrate 25 mg tablet 25 mg PO DAILY blood pressure 09/0 10/0712/03/24 History acetaminophen 500 mg capsule 1,000 mg PO Q8H PRN Pain 10/27/20 12/03/24 History gabapentin 400 mg capsule 400 mg PO TID PRN 07/05/24 5 History rivaroxaban 20 mg tablet 20 mg PO QDAY #90 tabs 07/18/24 Rx duloxetine 60 mg capsule,delayed 60 mg PO QDAY 12/03/24 12/03/24 Hi story release (Cymbalta) tamsulosin 0.4 mg capsule (Flomax) 0.4 mg PO QDAY 12/03/24 12/03/24 History Have you fallen in the past year?: No PFSH Medical History (Updated 12/03/24 @ 11:56 by FRANCISCO Raymundo) Presence of IVC filter Bilateral swelling of feet and ankles TGA (transient global amnesia) Hypertension Factor II deficiency Surgical History History of left hip replacement History of repair of rotator cuff History of shoulder surgery H/O sinus surgery History of repair of anterior cruciate ligament of right knee History of repair of anterior cruciate ligament of left knee Hx of tonsillectomy Family History Father Arthritis Hypertension Mother Hypertension Social History household members: spouse Smoking Status: Never smoker alcohol intake: never substance use type: does not use HPI HPI HPI: MALVIN ROBLERO, is a 69 M who presents to the office today for follow-up s/p IVC filter placement 05/20/2024. 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 He reports he had been on Xarelto for 10 years prior with no adverse bleeding; at present, he is on Xarelto 20mg daily (due to the infrapopliteal DVT in Apr) and has had no issues. In the past, when he has been off of anticoagulation he generally develops VTE within a couple weeks; he had two PE's prior to diagnosis of his Factor II mutation and chronic anticoagulation. He had a R hip replacement recently and recovery from that was smooth. He is seeing orthopedics again soon to discuss likely L total knee replacement. 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 ROS General General: Yes fatigue; No weight change, appetite, colon cancer, breast cancer or weakness HEENT HEENT: No difficulty swallowing, eye injury, eye surgery, swollen glands or hoarseness Endo Endocrine: No thyroid disease, diabetes mellitus, thyroid cancer, Hair loss, heat intolerance or cold intolerance Skin Skin: No rash or changing moles Musc Musculoskeletal: Yes back problems and arthritis; No rheumatoid arthritis, gout or joint pain Cardio Cardiovascular: Yes high blood pressure; No murmur, pacemaker, heart disease, atrial fibrillation, heart attack, heart stent, palpitations, shortness of breath with exertion or chest pain Psych Psychiatric: No depression, anxiety or hearing voices Resp Respiratory: No shortness of breath, No sleep apnea, No cough, No COPD, No asthma, No emphysema and No wheezing Gastro Gastrointestinal: No abdominal pain (more content not included)... Normal [facility] XR HIP RIGHT 1 VIEWon 2024 XR HIP RIGHT 1 VIEW EXAM: XR HIP RIGHT 1 VIEW, 10/29/2024 11:54 AM COMPARISON: June 21, 2024 CLINICAL INDICATIONS: post KEYA RELEVANT CLINICAL HISTORY: To be completed in PACU.; FINDINGS: 2 images obtained. Soft Tissue: Soft tissue swelling and gas surrounding the proximal femur. Bone: Nondisplaced fracture through the superior margin of the femoral greater trochanter. Hip: Status post right hip total arthroplasty. Hardware appears intact and appropriate in alignment. IMPRESSION: Status post right hip total arthroplasty. Hardware appears intact and appropriate in alignment. Nondisplaced fracture through the superior margin of the femoral greater trochanter. Normal [facility] XR Hip - right Single viewon 10-29-2024 IMPRESSION: Status post right hip total arthroplasty. Hardware appears intact and appropriate in alignment. Nondisplaced fracture through the superior margin of the femoral greater trochanter. OLOGY EXAM: XR HIP RIGHT 1 VIEW, 10/29/2024 11:54 AM COMPARISON: June 21, 2024 CLINICAL INDICATIONS: post KEYA RELEVANT CLINICAL HISTORY: To be completed in PACU.; FINDINGS: 2 images obtained. Soft Tissue: Soft tissue swelling and gas surrounding the proximal femur. Bone: Nondisplaced fracture through the superior margin of the femoral greater trochanter. Hip: Status post right hip total arthroplasty. Hardware appears intact and appropriate in alignment. RADIOLOGY Jhonny Haji MD - 10/29/2024 EXAM: XR HIP RIGHT 1 VIEW, 10/29/2024 11:54 AM COMPARISON: June 21, 2024 CLINICAL INDICATIONS: post KEYA RELEVANT CLINICAL HISTORY: To be completed in PACU.; FINDINGS: 2 images obtained. Soft Tissue: Soft tissue swelling and gas surrounding the proximal femur. Bone: Nondisplaced fracture through the superior margin of the femoral greater trochanter. Hip: Status post right hip total arthroplasty. Hardware appears intact and appropriate in alignment. IMPRESSION IMPRESSION: Status post right hip total arthroplasty. Hardware appears intact and appropriate in alignment. Nondisplaced fracture through the superior margin of the femoral greater trochanter. [facility] Radiology Study observation (narrative) [facility] XR Hip - right Single viewOr dered By: Jhonny Haji on 10-29-2024 [facility] Work Phone: ALBUMINon 10-15-2024 Albumin [Mass/Vol] 4.2 g/dL 3.5 - 5.0 g/dL [facility] Albumin [Mass/Vol] 4.2 g/dL Normal 3.5-5.[address] [facility] Comment on above: Performed By: #### L [id number] #### [facility] (DEFAULT) [address] [place] [address] [id number] C REACTIVE PROTEINon 025 CRP High sensitivity method [Mass/Vol] 1.89 mg/L NINF - 10.00 mg/L [facility] CRP [Mass/Vol] 1.89 mg/L Normal <10.00 [facility] Comment on above: Performed By: #### L [id number] #### [facility] (DEFAULT) [address] [place] [address] 34192 CALCIUMon 10-15-2024 Calcium [Mass/Vol] 9.3 mg/dL 8.6 - 10. 5 mg/dL [facility] Calcium [Mass/Vol] 9.3 mg/dL Normal 8.6-10.[address] [facility] Comment on above: Performed By: #### C A, CHM6, ALB, CRP, MGO #### [facility] (DEFAULT) [address] [place] [address] 98237 CBC AND ELECTRONIC DIFFon Basophils (Bld) [#/Vol] 0.04 10*3/uL Normal 0.00-0.09 [facility] Comment on above: Performed By: #### C A, CHM6, ALB, CRP, MGO #### [facility] (DEFAULT) [address] [place] [address] 45696 Basophils/100 WBC (Bld) 0.7 % Normal O [facility] Comment on above: Performed By: #### C A, CHM6, ALB, CRP, MGO #### [facility] (DEFAULT) [address] [place] [address] 97240 DIFF STATUS Electronic Differential Normal [facility] Comment on above: Performed By: #### C A, CHM6, ALB, CRP, MGO #### [facility] (DEFAULT) [address] [place] [address] 30749 Eosinophils (Bld) [#/Vol] 0.07 10*3/uL Normal 0.00-0.48 [facility] Comment on above: Performed By: #### C A, CHM6, ALB, CRP, MGO #### [facility] (DEFAULT) [address] [place] [address] 12555 Eosinophils/100 WBC (Bld) 1.2 % Normal [facility] Comment on above: Performed By: #### C A, CHM6, ALB, CRP, MGO #### [facility] (DEFAULT) [address] [place] [address] 06904 Hematocrit (Bld) [Volume fraction] 48.2 % Normal 39.6-48.8 [facility] Comment on above: Performed By: #### C A, CHM6, ALB, CRP, MGO #### [facility] (DEFAULT) [address] [place] [address] 66363 Hemoglobin (Bld) [Mass/Vol] 16.0 g/dL Normal 13.4-16.8 [facility] Comment on above: Performed By: #### C A, CHM6, ALB, CRP, MGO #### [facility] (DEFAULT) [address] [place] [address] 16819 Immature Grans % 0.7 % Normal [facility] Comment on above: Performed By: #### C A, CHM6, ALB, CRP, MGO #### [facility] (DEFAULT) [address] [place] [address] 06655 Immature Grans Absolute 0.04 K/uL Normal <=0.07 O [facility] Comment on above: Performed By: #### C A, CHM6, ALB, CRP, MGO #### [facility] (DEFAULT) [address] [place] [address] 29372 Lymphocytes (Bld) [#/Vol] 1.21 10*3/uL Normal 0.83-3.57 [facility] Comment on above: Performed By: #### C A, CHM6, ALB, CRP, MGO #### [facility] (DEFAULT) [address] [place] [address] 64227 Lymphocytes/100 WBC (Bld) 21.4 % Normal [facility] Comment on above: Performed By: #### C A, CHM6, ALB, CRP, MGO #### [facility] (DEFAULT) [address] [place] [address] 63513 MCV (RBC) [Entitic vol] 90.6 fL Normal 79.0-94.5 O [facility] Comment on above: Performed By: #### C A, CHM6, ALB, CRP, MGO #### [facility] (DEFAULT) [address] [place] [address] 47788 Mean Cell Hgb 30.1 pg Normal 26.1-33.3 [facility] Comment on above: Performed By: #### C A, CHM6, ALB, CRP, MGO #### [facility] (DEFAULT) [address] [place] [address] 52061 Mean Cell Hgb Conc 33.2 g/dL Normal 31.9-36.[address] [facility] Comment on above: Performed By: #### C A, CHM6, ALB, CRP, MGO #### [facility] (DEFAULT) [address] [place] [address] 78024 Monocytes (Bld) [#/Vol] 0.62 10*3/uL Normal 0.24-0.93 [facility] Comment on above: Performed By: #### C A, CHM6, ALB, CRP, MGO #### [facility] (DEFAULT) [address] [place] [address] 54867 Monocytes/100 WBC (Bld) 11.0 % Normal O [facility] Comment on above: Performed By: #### C A, CHM6, ALB, CRP, MGO #### [facility] (DEFAULT) [address] [place] [address] 50236 Nucleated RBC 0.0 /100 WBC Normal <=0.2 [facility] Comment on above: Performed By: #### C A, CHM6, ALB, CRP, MGO #### [facility] (DEFAULT) [address] [place] [address] 22122 Platelet mean volume (Bld) [Entitic vol] 9.3 fL Normal 8.7-12.3 [facility] Comment on above: Performed By: #### C A, CHM6, ALB, CRP, MGO #### [facility] (DEFAULT) [address] [place] [address] 81501 Platelets (Bld) [#/Vol] 211 10*3/uL Normal 146-337 [facility] Comment on above: Performed By: #### C A, CHM6, ALB, CRP, MGO #### [facility] (DEFAULT) [address] [place] [address] 41089 RBC (Bld) [#/Vol] 5.32 10*6/uL Normal 4.38-5.83 [facility] Comment on above: Performed By: #### C A, CHM6, ALB, CRP, MGO #### [facility] (DEFAULT) [address] [place] [address] 98036 RBC Distribution 13.1 % Normal 10.9-14.3 [facility] Comment on above: Performed By: #### C A, CHM6, ALB, CRP, MGO #### [facility] (DEFAULT) [address] [place] [address] 61556 Segs + Bands Auto 65.0 % Normal [facility] Comment on above: Performed By: #### C A, CHM6, ALB, CRP, MGO #### [facility] (DEFAULT) [address] [place] [address] 31938 Segs + Bands,Absolute Auto 3.68 K/uL Normal 1.57-6.19 [facility] Comment on above: Performed By: #### C A, CHM6, ALB, CRP, MGO #### [facility] (DEFAULT) [address] [place] [address] 99720 WBC (Bld) [#/Vol] 5.66 10*3/uL Normal 3.73-10.10 [facility] Comment on above: Performed By: #### C A, CHM6, ALB, CRP, MGO #### [facility] (DEFAULT) [address] [place] [address] 27067 CHEM 7 (LYTES,BUN,CREA,GLUC) on 10-15-2024 Anion gap [Moles/Vol] 15 mmol/L 7 - 17 mmol/L [facility] Chloride [Moles/Vol] 103 mmol/L 98 - 10 8 mmol/L [facility] CO2 [Moles/Vol] 28 mmol/L 21 - 31 mmol/L [facility] Creatinine [Mass/Vol] 1.04 mg/dL 0.70 - 1.30 mg/dL [facility] eGFR, CKD-EPI, Male 76 - PINF [facility] Comment on above: Reported eGFR is bas ed on the CKD-EPI 2020 equation using creatinine, age, and sex. Glucose [Mass/Vol] 80 mg/dL 70 - 179 mg/dL [facility] Osmolality Calc [Osmolality] 297 [facility] Potassium [Moles/Vol] 4.5 mmol/L 3.5 - 5.0 mmol/L [facility] Sodium [Moles/Vol] 141 mmol/L 135 - 145 mmol/L [facility] Urea nitrogen [Mass/Vol] 21 mg/dL 7 - 25 mg/dL [facility] Urea nitrogen/Creatinine [Mass ratio] 20 mg/mg [facility] Anion gap [Moles/Vol] 15 mmol/L Normal 7-17 [facility] Comment on above: Performed By: #### C A, CHM6, ALB, CRP, MGO #### [facility] (DEFAULT) [address] [place] [address] 23040 Chloride [Moles/Vol] 103 mmol/L Normal 98-108 [facility] Comment on above: Performed By: #### C A, CHM6, ALB, CRP, MGO #### [facility] (DEFAULT) [address] [place] [address] 37843 CO2 [Moles/Vol] 28 mmol/L Normal 21-31 [facility] Comment on above: Performed By: #### C A, CHM6, ALB, CRP, MGO #### [facility] (DEFAULT) [address] [place] [address] 18479 Creatinine [Mass/Vol] 1.04 mg/dL Normal 0.70-1.30 [facility] Comment on above: Performed By: #### C A, CHM6, ALB, CRP, MGO #### [facility] (DEFAULT) [address] [place] [address] 64585 GFR/1.73 sq M.predicted among non-blacks MDRD (S/P/Bld) [Vol rate/Area] 77 mL/min/{1.73_m2} Normal >=60 [facility] Comment on above: Result Comment: Repo rted eGFR is based on the CKD-EPI 2020 equation using creatinine, age, and sex. Performed By: #### C A, CHM6, ALB, CRP, MGO #### [facility] (DEFAULT) [address] [place] [address] 87998 Glucose [Mass/Vol] 80 mg/dL Normal Nonfastin g : 70-179 mg/dL; Fastin-99 [facility] Comment on above: Performed By: #### C A, CHM6, ALB, CRP, MGO #### [facility] (DEFAULT) [address] [place] [address] 96633 Osmolality [Osmolality] 297 mosm/kg Normal 278-305 [facility] Comment on above: Performed By: #### C A, CHM6, ALB, CRP, MGO #### [facility] (DEFAULT) [address] [place] [address] 85928 Potassium [Moles/Vol] 4.5 mmol/L Normal 3.5-5.0 [facility] Comment on above: Performed By: #### C A, CHM6, ALB, CRP, MGO #### [facility] (DEFAULT) [address] [place] [address] 72985 Sodium [Moles/Vol] 141 mmol/L Normal 135-[address] [facility] Comment on above: Performed By: #### C A, CHM6, ALB, CRP, MGO #### [facility] (DEFAULT) [address] [place] [address] 34821 Urea nitrogen [Mass/Vol] 21 mg/dL Normal 7-25 [facility] Comment on above: Performed By: #### C A, CHM6, ALB, CRP, MGO #### [facility] (DEFAULT) [address] [place] [address] 61449 Urea nitrogen/Creatinine [Mass ratio] 20 mg/mg Normal [facility] Comment on above: Performed By: #### C A, CHM6, ALB, CRP, MGO #### [facility] (DEFAULT) [address] [place] [address] 40455 HEMOGLOBIN A1Con 10-15-2024 Average glucose Estimated from glycated hemoglobin (Bld) [Mass/Vol] 97 mg/dL [facility] HbA1c (Bld) [Mass fraction] 5 % 4.7 - 5.6 % [facility] Glucose [Mass/Vol] 97 mg/dL Normal [facility] Comment on above: Performed By: #### C A, CHM6, ALB, CRP, MGO #### [facility] (DEFAULT) [address] [place] [address] 75523 Hemoglobin A1C HPLC 5.0 % Normal 4.7-5.6 [facility] Comment on above: Performed By: #### C A, CHM6, ALB, CRP, MGO #### [facility] (DEFAULT) [address] [place] [address] 72619 MAGNESIUMon 10-15-2024 Magnesium [Mass/Vol] 2.4 mg/dL 1.6 - 2 .6 mg/dL [facility] Magnesium [Mass/Vol] 2.4 mg/dL Normal 1.6-2.6 [facility] Comment on above: Performed By: #### C A, CHM6, ALB, CRP, MGO #### [facility] (DEFAULT) [address] [place] [address] 51566 NICOTINE SCREEN URINEOrdered By: Viri Crockett on 10-15-2024 Cotinine (U) [Mass/Vol] Not detected Cuto ff: 500 ng/mL [facility] Interpretation and review of laboratory results Normal [facility] NICOTINE SCREEN URINEon 09-20 Nicotine (Cotinine) Not detected Normal Cutoff: 500 ng/mL [facility] Comment on above: Performed By: #### C A, CHM6, ALB, CRP, MGO #### [facility] (DEFAULT) [address] [place] [address] [phone] No Panel Informationon 10-15 Interpretation and review of laboratory results Normal [facility] PT,INR,PTTon 10-15-2024 aPTT Coag (PPP) [Time] 31.9 s OS [facility] INR Coag (Bld) [Relative time] 1.4 {INR} High 0.9 - 1.1 [facility] Interpretation and review of laboratory results Abnormal [facility] PT Coag (PPP) [Time] 17 s High [facility] aPTT Coag (Bld) [Time] 31.9 s Normal 24.0-34.3 [facility] Comment on above: Performed By: #### P TPTT #### [facility] (DEFAULT) [address] [place] [address] [phone] INR Coag (PPP) [Relative time] 1.4 {INR} High 0.9-1.1 [facility] Comment on above: Performed By: #### P TPTT #### [facility] (DEFAULT) [address] [place] [address] [phone] PT Coag (PPP) [Time] 17.0 s High 11.9-14.2 [facility] Comment on above: Performed By: #### P TPTT #### [facility] (DEFAULT) [address] [place] [address] [phone] SCREEN: MRSA/MSSAOrdered By: Maine Moore on 10-15-2024 Interpretation and review of laboratory results Normal [facility] Methicillin Resistant S. Aureus By Pcr Negative Negative [facility] Staphylococcus Aureus By Pcr Negative Negative [facility] This test was perfor med using a real time PCR assay. Results should be interpreted in conjunction with other clinical and laboratory findings. A positive result does not necessarily indicate the presence of viable organism. This test should not be used as a test of cure. For E-swab specimens, this test was developed and its performance characteristics determined by the Clinical Microbiology Laboratory at [facility]. It has not been cleared or approved by the FDA.The laboratory is regulated under CLIA as qualified to perform high-complexity testing. This test is used for clinical purposes. It should not be regarded as investigational or for research. [facility] SCREEN: MRSA/MSSAon 10-16-19 25 Methicillin Resistant S. Aureus By Pcr Negative Normal Negative [facility] Comment on above: Order Comment: This test was performed using a real time PCR assay. Results should be interpreted in conjunction with other clinical and laboratory findings. A positive result does not necessarily indicate the presence of viable organism. This test should not be used as a test of cure. For E-swab specimens, this test was developed and its performance characteristics determined by the [facility] at [facility]. It has not been cleared or approved by the FDA.The laboratory is regulated under CLIA as qualified to perform high-complexity testing. This test is used for clinical purposes. It should not be regarded as investigational or for research. Performed By: #### C A, CHM6, ALB, CRP, MGO #### [facility] (DEFAULT) [address] [place] [address] 37274 Staphylococcus Aureus By Pcr Negative Normal Negative [facility] Comment on above: Order Comment: This test was performed using a real time PCR assay. Results should be interpreted in conjunction with other clinical and laboratory findings. A positive result does not necessarily indicate the presence of viable organism. This test should not be used as a test of cure. For E-swab specimens, this test was developed and its performance characteristics determined by the [facility] at [facility]. It has not been cleared or approved by the FDA.The laboratory is regulated under CLIA as qualified to perform high-complexity testing. This test is used for clinical purposes. It should not be regarded as investigational or for research. Performed By: #### C A, CHM6, ALB, CRP, MGO #### [facility] (DEFAULT) [address] [place] [id number] SEDIMENTATION RATE, AUTOMATE Don 10-15-2024 ESR (Bld) [Velocity] 2 mm/h [facility] Interpretation and review of laboratory results Normal [facility] ESR Westergren 2 mm/hr Normal <20 [facility] Comment on above: Performed By: #### L [id number] #### [facility] (DEFAULT) [address] [place] [address] TYPE AND SCREEN - PREADMISSI ONon 10-15-2024 ABO/RH(D) TYPE Positive [facility] Specimen Expiration 11/14/2024 23:59 [facility] ABO/RH(D) TYPE Positive Normal [facility] Comment on above: Performed By: #### L [id number] #### [facility] (DEFAULT) [address] [place] [address] Specimen Expiration 11/14/2024 23:59 Normal [facility] Comment on above: Performed By: #### L [id number] #### [facility] (DEFAULT) [address] [place] [id number] PT D/C Summary (1)on 025 PT D/C Summary (1) [facility] Physical [facility] [address] [place] [address]. [address] [place] [address] / REHABILITATION SERVICES DISCHARGE SUMMARY MR#: [id number] Acct: [id number] Name: MALVIN ROBLERO Rep #: [id number] : 1955 68 From: Librado Lazar PT, Cert. MD Goyal, OCS Referring Dr.: FRANCISCO Mack Status: REG RCR Insurance: [facility] [id number] SELF PAY INSURANCE Discharge Summary D/C summary: It has been my pleasure to treat MALVIN ROBLERO referred by FRANCISCO Mack, with the diagnosis of HEMATOMA for a total of 14 visit(s). Discharge Date: Please see the following information for a summary of their discharge status. Subjective Subjective: Provided new medication Cymbalta Will stop PT ,Planning for injections and surgery Pain Left Back: Pain Intensity (Out of 10): 2 Left Lower Extremity: Pain Intensity (Out of 10): 2 Overall Improvement % Improvement: 10 Objective Objective/Function: POSTURE: mild forward posture rounded shoulders head forward PALAPTION: unremarkable NEURO: denies paresthesia/tingling ,reflexes L3-4,L4-5,L5-S1 1/3 GAIT: ambulates with slow antalgic gait left side MMT: quads/hams 4/5 ,hip flexion 4-/5 ,ankle 4/5 FLEXABILITY: hamstrings mod tight LUMBAR ROM: flexion mod loss ,extension severe loss ,side glides mod loss Goals Goal 1:: Patient to be I with HEP for back Goal Progress: Progressing Goal 2:: Patient to improve lumbar ROM for function of recovery to put on shoes Goal Progress: Not Progressing Goal 3:: Patient will demonstrate 50% improvement with less pain and improved function with ADLS Goal Progress: Not Progressing Goal 4:: Patient to normalize gait pattern Goal Progress: Not Progressing Goal 5:: Patient will improve back oswestry score by 5 points to improve QOL and function Goal Progress: Progressing Plan Plan: D/C WILL HAVE KEYA ,TKA LEFT D/C Information d/c sentence: If there are questions or concerns regarding this patient's physical therapy, please feel free to call me at [phone]. Thank you for the referral of this patient. Sincerely, Librado Lazar, PT, Cert MDT, OCS Balance/Gait/Functional tests Balance/Special Test Scores Oswestry Low Back Score: 21 Improvement % Improvement: 10 07/23/24 1020 CC: Dr. Kayla Erwin MD; FRANCISCO Mack CINDY Signed Normal [facility] D-Dimer Quantitative (DVT/PE )on 07-11-2024 D-DIMER QUANT 0.33 FEU/ug/m Normal 0.27-0.49 [facility] Comment on above: Result Comment: NORM AL D-Dimer level (<0.50) indicates no DVT or PE. Performed By: #### L 300.8000 #### [facility] Laboratory [address] [place], [address] LABS (OUTSIDE)on 07-11-2024 [facility] Oncology Visit Reporton 06-23 Oncology Visit Report [facility] [address] [place] [address] OFFICE VISIT Date of Service: 07/11/24 1534 MR#: [id number] Acct: [id number] Name: MALVIN ROBLERO BRANDEN Rep #: [id number] : 1955 From: Anabel Salmon NP VIOLIN MECHANIC -C Age/Sex: 68/M Location: [facility] Status: Signed HPI Subjective Date of Service 07/11/24 Chief Complaint F/u for Thrombophilia History of Present Illness 68 y.o.man presented with pleuritic chest pain and dyspnea [...] in for follow-up. Denies new clotting episodes, had pain in the L hip and hip replacement was done in March 2018. Had L shoulder surgery in February 2020. Was on Xarelto, had R hip pain, CT on 03/21/2024 showed R iliacus muscle bleed so stopped. CT scan was repeated which showed decrease in size of iliacus muscle. He had MRI pelvis and R hip done on 05/08/2024 which showed 25% decrease in the size of the right iliopsoas bursa, no evidence of muscle bleed or aggressive infectious process. He had swelling of the legs, venous Doppler on 05/20/2024 showed acute DVT in the left popliteal vein, tibioperoneal trunk, posterior tibial peroneal and soleus veins. Lyric filter was placed on 05/20/2024 and started on Xarelto 20 mg daily. Interval History The patient is presenting to clinic for an 8 week follow up. Left hip and left knee pain continue, follows with Dr. Garcia, orthopedist at [facility]. Met with Dr. Ken Quintanilla, back surgeon yesterday who advised an ablation of the nerves causing lumbar back. Confirms good adherence and tolerance to Xarelto at this time. Denies any episodes of overt bleeding or abnormal bruising. [facility] Medical History Presence of IVC filter Bilateral swelling of feet and ankles TGA (transient global amnesia) Hypertension Factor II deficiency Surgical History History of left hip replacement History of repair of rotator cuff History of shoulder surgery H/O sinus surgery History of repair of anterior cruciate ligament of right knee History of repair of anterior cruciate ligament of left knee Hx of tonsillectomy Family History Father Arthritis Hypertension Mother Hypertension Social History household members: spouse Smoking Status: Never smoker alcohol intake: never substance use type: does not use ROS ROS Narrative Negative except as documented in the interval HPI Intake Vital Signs 05/27/24 10:06 07/11/24 15:36 Height 5 ft 11 in 5 ft 11 in Weight: 193 lb 9 oz BMI 26.9 BP 117/75 Blood Pressure Location Lt brachial Position Sitting Respiration 18 Pulse 51 L Pulse Source Monitor Temp 98 F Temperature Source Temporal Artery Pulse Oximetry (%) 99 Oxygen Delivery Method room air Intake Is patient in pain?: Yes (left hip) Pain scale (1-10): 2 Allergies cyclobenzaprine HCl (From Flexeril) Allergy (Severe, Verified 07/11/24 15:36) Swelling ketorolac tromethamine (From Toradol) Allergy (Severe, Verified 07/11/24 15:36) Swelling levofloxacin (From Levaquin) Allergy (Severe, Verified 07/11/24 15:36) Anaphylaxis meloxicam Allergy (Severe, Verified 07/11/24 15:36) Swelling orphenadrine citrate (From Norflex) Allergy (Severe, Verified 07/11/24 15:36) Swelling Penicillins Allergy (Severe, Verified 07/11/24 15:36) Rash triamcinolone acetonide (From Kenalog) Allergy (Severe, Verified 07/11/24 15:36) Swelling Medications ???Medication ???Instructions ???Recorded ???Confirmed ???Type omeprazole 40 mg capsule,delayed 1 tab PO DAILY gerd 10/04/1307/11 History release losartan 50 mg tablet 50 mg PO DAILY bp 04/16/15 5 History metoprolol tartrate 25 mg tablet 25 mg PO DAILY blood pressure 10/0707/11/24 History acetaminophen 500 mg capsule 1,000 mg PO Q8H PRN Pain 10/27/20 07/11/24 History rivaroxaban 10 mg tablet 10 mg PO DAILY #90 tabs 04/07/23 0 07/11/24 Rx gabapentin 400 mg capsule 400 mg PO TID PRN 07/05/24 5 History Have you fallen in the past year?: No Central Venous Access Central Venous Access: No Laboratory Tests 07/11/24 14:50 D-Dimer Quant (PE/DVT) 0.33 Exam Physical Exam Const alert, oriented x3, no apparent distress and average body habitus HEENT normocephalic Eyes co (more content not included)... Normal [facility] XR SPINE LUMBAR 4+ VIEWSon 0 07-10-2024 XR SPINE LUMBAR 4+ VIEWS EXAM: XR SPINE LUMBAR 4+ VIEWS, 07/10/2024 09:39 AM COMPARISON: Lumbar spine radiographs 05/24/2024 CLINICAL INDICATIONS: Back pain, unspecified back location, unspecified back pain laterality, unspecified chronicity RELEVANT CLINICAL HISTORY: M54.9:Back pain, unspecified back location, unspecified back pain laterality, unspecified chronicity Ap/lateral/flex/ex; FINDINGS: 4 images obtained. Vertebral: There are 5 typical lumbar spine vertebral bodies in unchanged alignment with grade 1 anterolisthesis of L4 on L5 and stepwise grade 1 retrolisthesis from L1-L4. No instability is seen on flexion or extension views. Disc: Multilevel degenerative disc disease is present. Joint: Facet joints appear anatomically aligned with multilevel facet arthrosis. Stable appearance of the retrievable IVC filter. IMPRESSION: Multilevel spondylolisthesis, as above, without instability. Multilevel degenerative disc disease and facet arthrosis. Normal [facility] XR Spine Lumbar and Sacrum 5 Viewson 07-10-2024 IMPRESSION: Multilevel spondylolisthesis, as above, without instability. Multilevel degenerative disc disease and facet arthrosis. OLOGY EXAM: XR SPINE LUMBA R 4+ VIEWS, 07/10/2024 09:39 AM COMPARISON: Lumbar spine radiographs 05/24/2024 CLINICAL INDICATIONS: Back pain, unspecified back location, unspecified back pain laterality, unspecified chronicity RELEVANT CLINICAL HISTORY: M54.9:Back pain, unspecified back location, unspecified back pain laterality, unspecified chronicity Ap/lateral/flex/ex; FINDINGS: 4 images obtained. Vertebral: There are 5 typical lumbar spine vertebral bodies in unchanged alignment with grade 1 anterolisthesis of L4 on L5 and stepwise grade 1 retrolisthesis from L1-L4. No instability is seen on flexion or extension views. Disc: Multilevel degenerative disc disease is present. Joint: Facet joints appear anatomically aligned with multilevel facet arthrosis. Stable appearance of the retrievable IVC filter. RADIOLOGY Shad Frank MD - 07/10/2024 EXAM: XR SPINE LUMBAR 4+ VIEWS, 07/10/2024 09:39 AM COMPARISON: Lumbar spine radiographs 05/24/2024 CLINICAL INDICATIONS: Back pain, unspecified back location, unspecified back pain laterality, unspecified chronicity RELEVANT CLINICAL HISTORY: M54.9:Back pain, unspecified back location, unspecified back pain laterality, unspecified chronicity Ap/lateral/flex/ex; FINDINGS: 4 images obtained. Vertebral: There are 5 typical lumbar spine vertebral bodies in unchanged alignment with grade 1 anterolisthesis of L4 on L5 and stepwise grade 1 retrolisthesis from L1-L4. No instability is seen on flexion or extension views. Disc: Multilevel degenerative disc disease is present. Joint: Facet joints appear anatomically aligned with multilevel facet arthrosis. Stable appearance of the retrievable IVC filter. IMPRESSION IMPRESSION: Multilevel spondylolisthesis, as above, without instability. Multilevel degenerative disc disease and facet arthrosis. [facility] Radiology Study observation (narrative) [facility] XR Spine Lumbar and Sacrum 5 ViewsOrdered By: Shad Frank on 07-10-2024 [facility] Work Phone: Orthopedic Visit Reporton Orthopedic Visit Report [facility] [address] [place] [address] OFFICE VISIT Date of Service: 07/05/24 MR#: [id number] Acct: [id number] Name: MALVIN ROBLERO BRANDEN Rep #: [id number] : 1955 Provider: Dr. Javid Ness MD Age/Sex: 68/M Location: [facility] [place] Status: Signed Intake Vital Signs 05/27/24 10:06 Height 5 ft 11 in Intake Visit Reasons: LUMBAR SPINE Chief Complaint: lumbar spine Is patient in pain?: Yes (lumbar spine ) Pain scale (1-10): 4 Allergies cyclobenzaprine HCl (From Flexeril) Allergy (Severe, Verified 07/05/24 11:34) Swelling ketorolac tromethamine (From Toradol) Allergy (Severe, Verified 07/05/24 11:34) Swelling levofloxacin (From Levaquin) Allergy (Severe, Verified 07/05/24 11:34) Anaphylaxis meloxicam Allergy (Severe, Verified 07/05/24 11:34) Swelling orphenadrine citrate (From Norflex) Allergy (Severe, Verified 07/05/24 11:34) Swelling Penicillins Allergy (Severe, Verified 07/05/24 11:34) Rash triamcinolone acetonide (From Kenalog) Allergy (Severe, Verified 07/05/24 11:34) Swelling Medications ???Medication ???Instructions ???Recorded ???Confirmed ???Type omeprazole 40 mg capsule,delayed 1 tab PO DAILY gerd 10/04/1307/05 History release losartan 50 mg tablet 50 mg PO DAILY bp 04/16/15 5 History metoprolol tartrate 25 mg tablet 25 mg PO DAILY blood pressure 10/0707/05/24 History acetaminophen 500 mg capsule 1,000 mg PO Q8H PRN Pain 10/27/20 07/05/24 History rivaroxaban 10 mg tablet 10 mg PO DAILY #90 tabs 04/07/23 0 07/05/24 Rx gabapentin 400 mg capsule 400 mg PO TID PRN 07/05/24 5 History Have you fallen in the past year?: No PFSH Medical History Presence of IVC filter Bilateral swelling of feet and ankles TGA (transient global amnesia) Hypertension Factor II deficiency Surgical History History of left hip replacement History of repair of rotator cuff History of shoulder surgery H/O sinus surgery History of repair of anterior cruciate ligament of right knee History of repair of anterior cruciate ligament of left knee Hx of tonsillectomy Family History Father Arthritis Hypertension Mother Hypertension Social History household members: spouse Smoking Status: Never smoker alcohol intake: never substance use type: does not use HPI LUMBAR SPINE Details: This documentation accurately reflects the service provided and the decisions made by me, Dr. Javid Ness MD 07/05/24 1132. Part of today???s visit was documented by Roxana Gill RN, acting as scribe. MALVIN ROBLERO is a 68 year old M here today for follow up on low back pain. He reports continued left sided low back pain that extends into his leg and abdalla. He describes this as a deep ache. He also is experiencing intermittent sharp pain that shoots from his left low back to his foot. He would like to discuss surgical options. He saw Dr. Muller on 06-25-24 and he recommended to come back and see Dr. Ness. Dr. Muller did increase the Gabapentin to 400mg TID. Dr. Muller is hesitant to do any injections and feels that the surgery is best for him. Pain goes down his left lateral leg and wraps to his anterior abdalla. He also describes an increased axial back pain. Hematoma formed after his hip surgery, his blood pressure crashed when he was stood up after the surgery. Says that he is still walking well and walks 2 miles a day. 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 The patient also mentions that he needs a hip and knee replacement. HPI from 06/20/24: MALVIN ROBLERO is a 68 year old M here today for MRI review. He would like to discuss results and next steps. He recently was started on Gabapentin by Dr. Muller and reports minimal help with it. He has been taking the gabapentin for about a week and a half and does think he has noticed some improvement. He tried to sleep in his bed instead of the couch but the pain was excruciating and he could not. He follows up with Dr. Muller next week. He has not had any injections done with Dr. Muller as Dr. Muller is concerned about bleeding issues due to his Xarelto. He has started physical therapy for his back and his hip and has seen them for several sessions, he has not yet seen significant improvement. The patient continues to be active on his own and walks about 2 miles per day, he has not noticed any decrease in his walking ability. He has stopped his blood thinners for surgeries in the past for a hip replacement and several shoulder procedures, said that when he had his hematoma on his hip he had stopped his blood thinners for a sourav (more content not included)... Normal [facility] XR HIP RIGHT 2-3 VIEWSon XR HIP RIGHT 2-3 VIEWS EXAM[facility] 06/21/2024 10:21 AM COMPARISON: No prior studies available for comparison. CLINICAL INDICATIONS: right hip pain RELEVANT CLINICAL HISTORY: M25.551:Right hip pain Standing AP pelvis/standing AP right hip/true lateral right hip-all views with [address] close to affected hip at the level of the bone w/o obscuring bone detail.; FINDINGS: 3 images obtained. Soft Tissue: There is no obvious soft tissue swelling. Bone: No acute osseous abnormality is identified. Hip: The right hip joint is anatomically aligned with moderate degenerative changes. Intact visualized total left hip arthroplasty hardware. IMPRESSION: Moderate right hip osteoarthritis. Normal [facility] XR Hip - right 2 Viewson IMPRESSION: Moderate right hip osteoarthritis. OLOGY EXAM: XR HIP RIGHT 2 -3 VIEWS, 06/21/2024 10:21 AM COMPARISON: No prior studies available for comparison. CLINICAL INDICATIONS: right hip pain RELEVANT CLINICAL HISTORY: M25.551:Right hip pain Standing AP pelvis/standing AP right hip/true lateral right hip-all views with [address] close to affected hip at the level of the bone w/o obscuring bone detail.; FINDINGS: 3 images obtained. Soft Tissue: There is no obvious soft tissue swelling. Bone: No acute osseous abnormality is identified. Hip: The right hip joint is anatomically aligned with moderate degenerative changes. Intact visualized total left hip arthroplasty hardware. RADIOLOGY Shad Frank MD - 06/21/2024 EXAM: XR HIP RIGHT 2-3 VIEWS, 06/21/2024 10:21 AM COMPARISON: No prior studies available for comparison. CLINICAL INDICATIONS: right hip pain RELEVANT CLINICAL HISTORY: M25.551:Right hip pain Standing AP pelvis/standing AP right hip/true lateral right hip-all views with [address] close to affected hip at the level of the bone w/o obscuring bone detail.; FINDINGS: 3 images obtained. Soft Tissue: There is no obvious soft tissue swelling. Bone: No acute osseous abnormality is identified. Hip: The right hip joint is anatomically aligned with moderate degenerative changes. Intact visualized total left hip arthroplasty hardware. IMPRESSION IMPRESSION: Moderate right hip osteoarthritis. [facility] Radiology Study observation (narrative) [facility] XR Hip - right 2 ViewsOrdere d By: Shad Frank on 06-21-2024 [facility] Work Phone: Orthopedic Visit Reporton Orthopedic Visit Report [facility] [address] [place] [address] OFFICE VISIT Date of Service: 06/20/24 MR#: [id number] Acct: [id number] Name: MALVIN ROBLERO BRANDEN Rep #: [id number] : 1955 Provider: FRANCISCO Torres Age/Sex: 68/M Location: [facility] [place] Status: Signed Intake Vital Signs 05/27/24 10:06 Height 5 ft 11 in Intake Visit Reasons: LUMBAR SPINE Chief Complaint: Lumbar spine MRI review Is patient in pain?: Yes (lumbar spine) Pain scale (1-10): 5 Allergies cyclobenzaprine HCl (From Flexeril) Allergy (Severe, Verified 06/20/24 09:00) Swelling ketorolac tromethamine (From Toradol) Allergy (Severe, Verified 06/20/24 09:00) Swelling levofloxacin (From Levaquin) Allergy (Severe, Verified 06/20/24 09:00) Anaphylaxis meloxicam Allergy (Severe, Verified 06/20/24 09:00) Swelling orphenadrine citrate (From Norflex) Allergy (Severe, Verified 06/20/24 09:00) Swelling Penicillins Allergy (Severe, Verified 06/20/24 09:00) Rash triamcinolone acetonide (From Kenalog) Allergy (Severe, Verified 06/20/24 09:00) Swelling Medications ???Medication ???Instructions ???Recorded ???Confirmed ???Type omeprazole 40 mg capsule,delayed 1 tab PO DAILY gerd 10/04/1306/20 History release losartan 50 mg tablet 50 mg PO DAILY bp 04/16/15 5 History metoprolol tartrate 25 mg tablet 25 mg PO DAILY blood pressure 10/0706/20/24 History acetaminophen 500 mg capsule 1,000 mg PO Q8H PRN Pain 10/27/20 06/20/24 History rivaroxaban 10 mg tablet 10 mg PO DAILY #90 tabs 04/07/23 0 06/20/24 Rx gabapentin 300 mg capsule mg PO 3XD 06/20/24 06/20/24 Histor y Have you fallen in the past year?: No PFSH Medical History Presence of IVC filter Bilateral swelling of feet and ankles TGA (transient global amnesia) Hypertension Factor II deficiency Surgical History History of left hip replacement History of repair of rotator cuff History of shoulder surgery H/O sinus surgery History of repair of anterior cruciate ligament of right knee History of repair of anterior cruciate ligament of left knee Hx of tonsillectomy Family History Father Arthritis Hypertension Mother Hypertension Social History household members: spouse Smoking Status: Never smoker alcohol intake: never substance use type: does not use HPI LUMBAR SPINE Details: This documentation accurately reflects the service provided and the decisions made by me, FRANCISCO Torres 06/20/24 0857. Part of today???s visit was documented by Roxana Gill LPN, acting as scribe. MALVIN ROBLERO is a 68 year old M here today for MRI review. He would like to discuss results and next steps. He recently was started on Gabapentin by Dr. Muller and reports minimal help with it. He has been taking the gabapentin for about a week and a half and does think he has noticed some improvement. He tried to sleep in his bed instead of the couch but the pain was excruciating and he could not. He follows up with Dr. Muller next week. He has not had any injections done with Dr. Muller as Dr. Muller is concerned about bleeding issues due to his Xarelto. He has started physical therapy for his back and his hip and has seen them for several sessions, he has not yet seen significant improvement. The patient continues to be active on his own and walks about 2 miles per day, he has not noticed any decrease in his walking ability. He has stopped his blood thinners for surgeries in the past for a hip replacement and several shoulder procedures, said that when he had his hematoma on his hip he had stopped his blood thinners for a month. 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 He sees hematology who manages his blood thinner. HPI from 05/24/24: MALVIN ROBLERO is a 68 year old M here today for initial evaluation of lumbar spine pain. He reports a three week history of left sided lumbar spine and hip pain. He reports sciatic pain into the left leg. He states the pain is a sharp stabbing. The pain starts around the left buttock and extends down the lateral leg to the knee and will occasionally extend down to the lateral calf. At times he is not able to put weight on his leg due to the pain. In February he had a muscle tear in his hip that hemorrhaged. He does report blood clots in his left leg and Monday an IVC screen was placed for those clots, he is also on a blood thinner. He states he is unable to sleep due to the pain and he is unable to lay flat for long periods. He denies numbness and tingling. He h (more content not included)... Normal [facility] Spine Lumbar (Routine)on Spine Lumbar (Routine) [facility] [address] [place], [place] [address] Spine Lumbar (Routine) MR#: [id number] Acct: [id number] Name: MALVIN ROBLERO Rep #: [id number] : 1955 M 68 From: Tyrese Gavin MD PCP: Dr. Kayla Erwin MD Status: REG CLI Study: Spine Lumbar (Routine) Date of Exam: 06/15/24 Exam# [id number] Ordering Dr: Marla Jones [id number] EXAM: MR LUMBAR SPINE WITHOUT INTRAVENOUS CONTRAST CLINICAL INDICATION: lumbar radiculopathy TECHNIQUE: Multiplanar and multisequence MR images of the lumbar spine without intravenous contrast. COMPARISON: Lumbar spine radiographs 05/24/2024 FINDINGS: VERTEBRAE: Multilevel endplate deformities throughout the lumbar spine. No bone marrow edema. SPINAL CORD: Normal. Normal position and signal intensity of the conus medullaris. SOFT TISSUES: Normal. DISCS/SPINAL CANAL/NEURAL FORAMINA: L1-L2: Mild disc space narrowing. Prominent anterior disc osteophyte complex. No posterior disc herniation. No spinal or neural foraminal stenosis. L2-L3: Mild disc space narrowing. Moderate size anterior osteophyte/disc prominence. No posterior disc protrusion. No spinal stenosis. Mild narrowing of the neural foramina related to vertebral body hypertrophy and facet arthropathy. L3-L4: Prominent anterior disc osteophyte complex. No posterior disc herniation. The no spinal stenosis. Severe left and moderate right neural foraminal narrowing related to facet arthropathy. L4-L5: Mild disc space narrowing. Minimal anterior listhesis of L4 on L5. Disc bulging, ligamentous hypertrophy and facet arthropathy results in mild to moderate spinal stenosis. Moderate bilateral neural foraminal narrowing related to facet arthropathy. L5-S1: Normal disc height and morphology. Normal spinal canal and lateral recesses. Normal neuroforamina. MRI/Spine Lumbar (Routine) IMPRESSION: 1. Moderate spinal stenosis at L4-5. 2. Multilevel neural foraminal narrowing as described. Electronically Signed: Tyrese Gavin MD at 16:52 EST , CC: FRANCISCO Torres; Dr. Kayla Erwin MD Incident Response Coordinator: Signed Normal [facility] Inital Evaluation (1) - PTon 05-28-2024 Inital Evaluation (1) - PT [facility] Physical Therapy [facility] [address] [place] [address] / REHABILITATION SERVICES INITIAL EVALUATION MR#: [id number] Acct: [id number] Name: MALVIN ROBLERO Rep #: [id number] : 1955 68 From: Librado Lazar PT, Cert. MD Goyal, OCS Referring Dr.: FRANCISCO Mack Status: REG RCR Insurance: [facility] [id number] SELF PAY INSURANCE Patient's Visit Information Visit Information Visit Information: MALVIN ROBLERO is a 68 year old M referred to Physical Therapy by FRANCISCO Mack with a diagnosis of HEMATOMA. Date of Evaluation: 05/28/24 Physical Therapist: Librado Lazar PT, Cert T, OCS Visit Plan Frequency: 2x /Week Duration: 4 Weeks Plan: PRECAUTION ON BLOOD THINNER FOR DVTS PT INTERVENTIONS INITIALLY MODALITIES ,PROGRESS TO DLS ,,POSTURAL EX'S AND ACTIVITY MODIFICATION Subjective Subjective: This 68 y/o male presents physical therapy with back pain and hematoma. February he had MRI a muscle tear of iliopsoas bursitis in his hip that hemorrhaged per hematologists. Patient had Doppler to legs. 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 He denies numbness and tingling. He is very active walking and exercising daily. Takes Xarelto for Factor II deficiency. Patient is back to activity with walking. Patient was going to have left TKA on May 06 but was cancelled. Patient had referral to PA back specialist. Did x-rays Degenerative changes of the spine grade 1 retrolisthesis of L3 on L4. No movement on the flexion-extension views. PA lumbar specialist plans to MRI lumbar . No medication. Patient has KEYA left . Currently located left lumbar to lateral leg. Aggravating squatting ,lifting ,bending sitting to get up. . Alleviating factors walking . Moving better, As above unable lay in supine affects sleeping ,needs to sleep right.Symptoms described as ache. Coughing/sneezing-. Bowel/bladder-. RTD to Ness when MRI is done. Patient condition affects QOL and function. Patient goals to decrease pain. 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 Pain Left Back: Pain Intensity (Out of 10): 7 Pain Intensity Range: 10 Left Lower Extremity: Pain Intensity (Out of 10): 7 Pain Intensity Range: 10 Objective Objective: POSTURE: mild forward posture rounded shoulders head forward PALAPTION: unremarkable NEURO: denies paresthesia/tingling ,reflexes L3-4,L4-5,L5-S1 1/3 GAIT: ambulates with slow antalgic gait left side MMT: quads/hams 4/5 ,hip flexion 4-/5 ,ankle 4/5 FLEXABILITY: hamstrings mod tight LUMBAR ROM: flexion mod loss ,extension severe loss ,side glides mod loss Special Tests L/S Slump test left side: Positive L/S Slump test right side: Negative L/S Left Straight Leg Raise: Negative L/S Right Straight Leg Raise: Negative Lumbar Standing: Flexion - Mechanical Response: No effect Lumbar Standing: Flexion - Symptoms During Testing: Increases Lumbar Standing: Flexion - Symptoms After Testing: No worse Lumbar Standing: Extension - Mechanical Response: No effect Lumbar Standing: Extension - Symptoms During Testing: No effect Lumbar Standing: Extension - Symptoms After Testing: No effect Lumbar Standing: Right Side Glides - Mechanical Response: No effect Lumbar Standing: Right Side Whiting - Symptoms During Testing: No effect Lumbar Standing: Right Side Whiting - Symptoms After Testing: No effect Lumbar Standing: Left Side Whiting - Mechanical Response: No effect Lumbar Standing: Left Side Whiting - Symptoms During Testing: Increases Lumbar Standing: Left Side Whiting - Symptoms After Testing: No worse Lumbar Lying: Flexion - Mechanical Response: No effect Lumbar Lying: Flexion - Symptoms During Testing: Increases Lumbar Lying: Flexion - Symptoms After Testing: Worse Lumbar Lying: Extension - Mechanical Response: No effect Lumbar Lying: Extension - Symptoms During Testing: Increases Lumbar Lying: Extension - Symptoms After Testing: No worse Balance/Special Test Scores Oswestry Low Back Score: 35 Goals Goal 1:: Patient to be I with HEP for back Goal Time Frame: 4-6 Weeks Goal 2:: Patient to improve lumbar ROM for function of recovery to put on shoes Goal Time Frame: 4-6 Weeks Goal 3:: Patient will demonstrate 50% improvement with less pain and improved function with ADLS Goal Time Frame: 4-6 Weeks Goal 4:: Patient to normalize gait pattern Goal Time Frame: 4-6 Weeks Goal 5:: Patient will improve back oswestry score by 5 points to improve QOL and function Goal Time Frame: 4-6 Weeks Rehabilitation Potential Physical Therapy Diagnosis: Patient has lumbar bhargavi (more content not included)... Normal [facility] D-Dimer Quantitative (DVT/PE )on 05-27-2024 D-DIMER QUANT 1.32 FEU/ug/m Invalid Interpretation Code 0.27-0.49 [facility] Comment on above: Result Comment: D-Di mireya ELEVATED (>0.49): Additional studies and clinical assessments are indicated to conclude diagnosis of: Deep Vein Thrombosis (DVT) or Pulmonary Embolism (PE) CRITICAL VALUE CALLED TO YVONNE 05/27/24 1034 Isaura Guzmán. RESULTS READ BACK BY SAME. Performed By: #### L 300.8000 #### [facility] [address] [place], [address] Oncology Visit Reporton Oncology Visit Report [facility] [address] [place] [address] OFFICE VISIT Date of Service: 05/27/24 0910 MR#: [id number] Acct: [id number] Name: MALVIN ROBLERO BRANDEN Rep #: [id number] : 1955 From: Kaushik Vann MD Age/Sex: 68/M Location: [place] Status: Signed HPI Subjective Date of Service 05/27/24 Chief Complaint F/u for Thrombophilia History of Present Illness 68y.o.man presented with pleuritic chest pain and dyspnea [...] in for follow-up. Denies new clotting episodes, had pain in the L hip and hip replacement was done in March 2018. Had L shoulder surgery in February 2020. Was on Xarelto, had R hip pain, CT on 03/21/2024 showed R iliacus muscle bleed so stopped. CT scan was repeated which showed decrease in size of iliacus muscle. He had MRI pelvis and R hip done on 05/08/2024 which showed 25% decrease in the size of the right iliopsoas bursa, no evidence of muscle bleed or aggressive infectious process. He had swelling of the legs, venous Doppler on 05/20/2024 showed acute DVT in the left popliteal vein, tibioperoneal trunk, posterior tibial peroneal and soleus veins. Salem filter was placed on 05/20/2024 and started on Xarelto 20 mg daily. Comes for follow up. Feels well, Pain R hip area is improving, Swelling of the legs have improved. [facility] Medical History Presence of IVC filter Bilateral swelling of feet and ankles TGA (transient global amnesia) Hypertension Factor II deficiency Surgical History History of left hip replacement History of repair of rotator cuff History of shoulder surgery H/O sinus surgery History of repair of anterior cruciate ligament of right knee History of repair of anterior cruciate ligament of left knee Hx of tonsillectomy Family History Father Arthritis Hypertension Mother Hypertension Social History household members: spouse Smoking Status: Never smoker alcohol intake: never substance use type: does not use Intake Vital Signs 05/13/24 16:11 05/20/24 11:27 05/24/24 13:06 05/27/24 09:11 05/27/24 09:15 Height 5 ft 11 in 5 ft 11 in 5 ft 11 in 5 ft 11 in 5 ft 11 in Weight: 85.275 kg BMI 26.2 BP 109/76 Blood Pressure Location Lt brachial Position Sitting Respiration 18 Pulse 59 L Pulse Source Monitor Temp 98 F Temperature Source Temporal Artery Pulse Oximetry (%) 98 Oxygen Delivery Method room air Intake Is patient in pain?: Yes (left hip) Pain scale (1-10): 3 Allergies cyclobenzaprine HCl (From Flexeril) Allergy (Severe, Verified 05/27/24 09:10) Swelling ketorolac tromethamine (From Toradol) Allergy (Severe, Verified 05/27/24 09:10) Swelling levofloxacin (From Levaquin) Allergy (Severe, Verified 05/27/24 09:10) Anaphylaxis meloxicam Allergy (Severe, Verified 05/27/24 09:10) Swelling orphenadrine citrate (From Norflex) Allergy (Severe, Verified 05/27/24 09:10) Swelling Penicillins Allergy (Severe, Verified 05/27/24 09:10) Rash triamcinolone acetonide (From Kenalog) Allergy (Severe, Verified 05/27/24 09:10) Swelling Medications ???Medication ???Instructions ???Recorded ???Confirmed ???Type omeprazole 40 mg capsule,delayed 1 tab PO DAILY gerd 10/04/13 05/27/24 History release losartan 50 mg tablet 50 mg PO DAILY bp 04/16/15 05/27/24 History metoprolol tartrate 25 mg tablet 25 mg PO DAILY blood pressure 01/24/19 05/27/24 History acetaminophen 500 mg capsule 1,000 mg PO Q8H PRN Pain 10/27/20 05/27/24 History rivaroxaban 10 mg tablet 10 mg PO DAILY #90 tabs 04/07/23 05/27/24 Rx Have you fallen in the past year?: No Exam Physical Exam Const alert, oriented x3 and no apparent distress Coding Level of Care Code Off vis,est,level 4 Exam Problem Focused Diagnoses Acute deep vein thrombosis (DVT) of popliteal vein of left lower extremity I82.432 Laterality: left Muscle hemorrhage M62.89 Prothrombin gene mutation D68.52 Assessment and Plan Assessment and Plan (1) DVT, popliteal, acute: Status: Acute Qualifiers: Laterality: left Qualified Code(s): I82.432 - Acute embolism and thrombosis of left popliteal vein Comment: Left Popliteal DVT S/P GF Filter placement. Started on Xarelto 20mg daily. Plan: To continue Xarelto 20mg. Check D-dimers. (2) Muscle he (more content not included)... Normal [facility] L/S Spine Min 4 Viewson L/S Spine Min 4 Views [facility] [address] [place] [address] L/S Spine Min 4 Views MR#: [id number] Acct: [id number] Name: MALVIN ROBLERO BRANDEN Rep #: [id number] : 1955 M 68 From: Dave Ragsdale PCP: Status: DEP AMB Study: L/S Spine Min 4 Views Date of Exam: 05/24/24 Exam# [id number] Ordering Dr: Marla Jones [id number] STUDY: X-RAY - LUMBAR SPINE REASON FOR EXAM: Male, 68 years old. pain -- please do upright AP, LAT, flex/ext TECHNIQUE: XR Spine Lumbar 4 Views COMPARISON: None FINDINGS: Normal lumbar lordosis. There is no substantial scoliosis. Grade 1 retrolisthesis of L3 on L4. No movement on the flexion-extension views. There is multilevel endplate spondylosis of the lumbar vertebrae. There is multi-level degenerative disc disease with multi-level disc space narrowing. IVC filter in place. Total left hip arthroplasty. Degenerative findings of the right hip. The soft tissue structures are unremarkable. RAD/L/S Spine Min 4 Views IMPRESSION: Degenerative changes of the spine, as detailed above. Electronically Signed: Dave Hernandez MD at 15:27 EST , CC: FRANCISCO Torres Incident Response Coordinator: Signed Normal [facility] Orthopedic Visit Reporton Orthopedic Visit Report [facility] [place] [address] OFFICE VISIT Date of Service: 05/24/24 MR#: [id number] Acct: [id number] Name: MALVIN ROBLERON Rep #: [id number] : 1955 Provider: FRANCISCO Torres Age/Sex: 68/M Location: [facility] [place] Status: Signed Intake Vital Signs 05/20/24 11:27 05/24/24 13:06 Height 5 ft 11 in 5 ft 11 in Weight: 191 lb 187 lb BMI 26.6 26.0 BP 154/104 H Respiration 16 Pulse 54 L Temp 98 F Temp Source Oral Pulse Oximetry (%) 99 Intake Visit Reasons: LUMBAR SPINE Chief Complaint: lumbar spine Is patient in pain?: Yes (lumbar spine ) Pain scale (1-10): 4 Allergies cyclobenzaprine HCl (From Flexeril) Allergy (Severe, Verified 05/24/24 13:07) Swelling ketorolac tromethamine (From Toradol) Allergy (Severe, Verified 05/24/24 13:07) Swelling levofloxacin (From Levaquin) Allergy (Severe, Verified 05/24/24 13:07) Anaphylaxis meloxicam Allergy (Severe, Verified 05/24/24 13:07) Swelling orphenadrine citrate (From Norflex) Allergy (Severe, Verified 05/24/24 13:07) Swelling Penicillins Allergy (Severe, Verified 05/24/24 13:07) Rash triamcinolone acetonide (From Kenalog) Allergy (Severe, Verified 05/24/24 13:07) Swelling Medications ???Medication ???Instructions ???Recorded ???Confirmed ???Type omeprazole 40 mg capsule,delayed 1 tab PO DAILY gerd 10/04/13 05/24/24 History release losartan 50 mg tablet 50 mg PO DAILY bp 04/16/15 05/24/24 History metoprolol tartrate 25 mg tablet 25 mg PO DAILY blood pressure 01/24/19 05/24/24 History acetaminophen 500 mg capsule 1,000 mg PO Q8H PRN Pain 10/27/20 05/24/24 History rivaroxaban 10 mg tablet 10 mg PO DAILY #90 tabs 04/07/23 05/24/24 Rx Have you fallen in the past year?: No PFSH Medical History Bilateral swelling of feet and ankles TGA (transient global amnesia) Hypertension Factor II deficiency Surgical History History of left hip replacement History of repair of rotator cuff History of shoulder surgery H/O sinus surgery History of repair of anterior cruciate ligament of right knee History of repair of anterior cruciate ligament of left knee Hx of tonsillectomy Family History Father Arthritis Hypertension Mother Hypertension Social History household members: spouse Smoking Status: Never smoker alcohol intake: never substance use type: does not use HPI LUMBAR SPINE Details: This documentation accurately reflects the service provided and the decisions made by , FRANCISCO Torres 05/24/24 1302. Part of today???s visit was documented by Roxana Gill LPN, acting as scribe. MALVIN ROBLERO is a 68 year old M here today for initial evaluation of lumbar spine pain. He reports a three week history of left sided lumbar spine and hip pain. He reports sciatic pain into t he left leg. He states the pain is a sharp stabbing. The pain starts around the left buttock and extends down the lateral leg to the knee and will occasionally extend down to the lateral calf. At times he is not able to put weight on his leg due to the pain. In February he had a muscle tear in his hip that hemorrhaged. He does report blood clots in his left leg and Monday an IVC screen was placed for those clots, he is also on a blood thinner. He states he is unable to sleep due to the pain and he is unable to lay flat for long periods. He denies numbness and tingling. He has not seen pain management or PT. He is very active walking and exercising daily. Takes Xarelto for Factor II deficiency. Denies any balance issues or changes in dexterity. Ortho Exam General General: Yes no acute distress Neurologic: Yes alert and Yes oriented x3 Spine SPINE TESTING CERVICAL THORACIC LUMBAR Musculoskeletal Strength 0=absent - 5=normal Details: Neurological exam of the lower extremities shows 4+ left knee extension, all other muscle groups show 5 power. Normal sensations across all dermatomes. No hyperreflexia. No midline or paraspinal tenderness. Figure 4 negative. Coding Level of Care Code Off vis,new,level 4 Diagnoses Lumbar radiculopathy M54.16 Spondylolisthesis at L4-L5 level M43.16 Assessment and Plan Assessment and Plan (1) Lumbar radiculopathy: Status: Acute (2) Spondylolisthesis at L4-L5 level: Orders: Orders L/S Spine Min 4 Views Today M54.50 - Low back pain, unspecified Spine Lumbar (Routine) Today M54.16 - Radiculopathy, lumbar region Plan Obtained and reviewed x-rays today with the patient. X-rays show multilevel degenerative changes, subtle spondylolisthesis of L4 on L5 wit (more content not included)... Normal [facility] Emergency Department Summary on 05-20-2024 Emergency Department Summary [facility] Medical Records Department [address] [place] [address] Emergency Department Summary 05/20/24 MR#: [id number] Acct: [id number] Name: MALVIN ROBLERO BRANDEN Rep #: [id number] : 1955 68 From: Luis Samuel MD PCP: Dr. Kayla Erwin MD Status:[facility] Location: [address] History of Present Illness Chief Complaint: Lower Extremity Injury Narrative Narrative: 68-year-old male past medical history of factor II clotting disorder, is usually on Xarelto but was sent in by his helmet hat sweatband puncher, Dr. Vann, because of a positive DVT study that was performed this [facility]. Patient relays history that back in February, there was a possible tear in his iliacis muscle. He has been off his Xarelto since February, for the last 2 months. Yesterday, he noticed pain and swelling in his left lower extremity. He states he had an ultrasound performed today, which was positive for DVT. Given his recent muscle tear with hemorrhage, he was told that he cannot have anticoagulation because of the risk of continued bleeding into the muscle and that he needed to be sent to the emergency department for Salem filter placement. Patient denies any current chest pain or shortness of breath. [facility] Medical History Bilateral swelling of feet and ankles TGA (transient global amnesia) Hypertension Factor II deficiency Home Medications ???Medication ???Instructions ???Recorded ???Last Taken ???Type omeprazole 40 mg capsule,delayed 1 tab PO DAILY gerd 10/04/13 04/18/18 06:00 History release losartan 50 mg tablet 50 mg PO DAILY bp 04/16/15 10/28/15 History metoprolol tartrate 25 mg tablet 25 mg PO DAILY blood pressure 01/24/19 Unknown History acetaminophen 500 mg capsule 1,000 mg PO Q8H PRN Pain 10/27/20 Unknown History rivaroxaban 10 mg tablet 10 mg PO DAILY #90 tabs 04/07/23 Unknown Rx mometasone 50 mcg/actuation nasal 2 spray intranasal DAILY 03/20/24 Unknown History spray (Nasonex 24hr Allergy) baclofen 5 mg tablet 5 mg PO BID 05/13/24 Unknown History naproxen sodium 220 mg capsule 220 mg PO BID PRN 05/13/24 Unknown History (Aleve) Allergy/AdvReac Type Severity Reaction Status Date / Time cyclobenzaprine HCl (From Allergy Severe Swelling Verified 05/20/24 11:30 Flexeril) ketorolac tromethamine (From Allergy Severe Swelling Verified 05/20/24 11:30 Toradol) levofloxacin (From Levaquin) Allergy Severe Anaphylaxis Verified 05/20/24 11:30 meloxicam Allergy Severe Swelling Verified 05/20/24 11:30 orphenadrine citrate (From Allergy Severe Swelling Verified 05/20/24 11:30 Norflex) Penicillins Allergy Severe Rash Verified 05/20/24 11:30 triamcinolone acetonide Allergy Severe Swelling Verified 05/20/24 11:30 (From Kenalog) Family History Father Arthritis Hypertension Mother Hypertension Surgical History History of left hip replacement History of repair of rotator cuff History of shoulder surgery H/O sinus surgery History of repair of anterior cruciate ligament of right knee History of repair of anterior cruciate ligament of left knee Hx of tonsillectomy Social History household members: spouse Smoking Status: Never smoker alcohol intake: never substance use type: does not use ROS ROS ED ROS Narrative Review of systems positive for left leg pain and swelling since yesterday. No chest pain or shortness of breath. No fevers or chills. EXAM Physical Exam Narrative Exam Narrative: Afebrile. Vital signs noted. Nontoxic-appearing. Cardiovascular examination reveals a mild bradycardia. Lungs clear to auscultation bilaterally. Abdomen soft and nontender. Full range of motion left leg. Const Vital Signs: 05/20/24 11:27 05/20/24 13:58 Temperature 98 F 97.5 F L Temperature Source Oral Pulse Rate 54 L 55 L Respiratory Rate 16 16 Blood Pressure 154/104 H 125/90 H Blood Pressure Mean 120 101 Pulse Ox 99 99 Oxygen Delivery Method Room Air MDM MDM MDM Narrative Medical decision making narrative: I reviewed the patient's ED chart. I had a lengthy discussion with him. He states he had an MRI recently that showed that it was most likely bursitis not hemorrhage into his muscle. He is concerned about even if he gets a Salem filter that he is not being restarted on his Xarelto. Patient states that he was diagnosed with a clot in his left lower extremity. I also reviewed the intake note regarding conversation with Dr. Vann. He was reported that he does have clots in the distal vein on the left in the popliteal area. As he reportedly had a recent muscle hemorrhage he nee (more content not included)... Normal [facility] Operative Reporton 4 Operative Report [facility] Medical Records Department [address] [place] [address] Operative Report 05/20/24 1448 MR#: [id number] Acct: [id number] Name: MALVIN ROBLERO BRANDEN Rep #: [id number] : 1955 68 From: Kevin Mcpherson MD PCP: Dr. Kayla Erwin MD Status:[facility] Location: [place] [address] Operative Report (Standard) Operative Information Date of Procedure: 05/20/24 Pre-Operative Diagnosis: DVT Post-Operative Diagnosis: same Surgery/Procedure Performed: insertion inferior vena cava filter lawyer probate: No Type of Anesthesia: Local and Sedation,Conscious Procedure Start Time: 14:30 Procedure Stop Time: 14:45 Select all DRAINS/GRAFTS/IMPLANTS that apply: Implanted device Implanted device details: Bard Sagrario IVC filter Estimated Blood Loss: 4 Specimen collected: No Description of surgery: HPI: Patient is a 68-year-old male with history of multiple pulmonary emboli and factor II mutation. He had been maintained on Xarelto 10 mg a day long-term but in February he developed right pelvic pain and was found to have spontaneous hemorrhage into the musculature of the pelvis. His anticoagulation has been held and this has shown resolution on imaging. He subsequently developed left lower extremity acute onset discomfort and edema and an outpatient duplex today revealed popliteal DVT. He was instructed to present to the emergency room for consideration for IVC filter placement. Given his recent spontaneous bleed while on prophylaxis dose Xarelto and the extent of the thrombus he is felt to be appropriate for filter placement. Description of procedure: Upon obtaining informed consent and verification correct patient procedure site patient was taken to the Housing Liaison where he was positioned prepped and draped in usual sterile fashion. Timeout was performed and conscious sedation administered Versed and fentanyl. Skin overlying the right common femoral vein was anesthetized 1% lidocaine the vessel accessed under ultrasound guidance with a micropuncture needle wire. This then exchanged for a micropuncture sheath through which a hand-injection ilio caval venogram was performed revealing satisfactory positioning with no extravasation or dissection. This also revealed patent nonobstructed right iliac vein system with brisk contrast transit into the vena cava. A J-wire was advanced and the micropuncture sheath exchanged for the Bard Sagrario delivery sheath which was advanced in position at the L2 vertebral body. From this position subtraction venacavogram was performed revealing patent inferior vena cava with caliber at the higher end of the indications; confirmation measurement on recent CT revealed IVC to be 18x26 mm. This also was used to selvin the common points of the renal veins. A Bard Seward inferior vena cava filter was then advanced into position and deployed below the lowest renal vein. Completion venacavogram confirmed satisfactory positioning of tilt. The sheath was then withdrawn and manual pressure held for 5 minutes until hemostasis was obtained. Patient was then taken to the PCU for bedrest prior to discharge to home Surgical Findings: see above Complications Complications: No 05/20/24 1519 Cosigner Signature (if applicable): CC: Dr. Kayla Erwin MD; Dr. Kevin Mcpherson MD Signed Normal [facility] Venous Duplex US - Thierno Extre [facility] 05-20-2024 Venous Duplex US - Thierno Extrem [facility] [place] [address] Venous Duplex US - Thierno Extrem 05/20/24 1049 MR#: [id number] Acct: [id number] Name: MALVIN ROBLERO Rep #: [id number] : 1955 68 From: Kevin Mcpherson MD Attending Dr: Dr. Kaushik Vann MD Status: REG C CHANDRAKANT Ordering Dr: Kaushik Vann MD Date: 05/20/24 Location: [facility] Sex: M C Admitted: Reason For Study: Swelling BLE RIGHT LEFT GSV is normal. GSV is normal. CFV is compressible, spontaneous, phasic, CFV is compressible, spontaneous, phasic, competent and demonstrates normal competent, and demonstrates normal augmentation. augmentation. FV is compressible, spontaneous, phasic, FV is compressible, spontaneous, phasic, competent and demonstrates normal competent and demonstrates normal augmentation. augmentation. POP V is compressible, phasic, and Lt PopV, Lt T/P Trunk, Lt PTV, Lt PeroV, and INCOMPETENT for greater than 1.0 second. Lt SoleusV are DILATED and NON COMPRESSIBLE T/P Trunk is compressible. consistent with acute DVT PTV is compressible. Lt PopV DVT is not well adhered to vein wall. RT PerV is compressible. Hypoechoic, non vascular structure noted Rt Groin. Procedure This is a venous duplex using B-mode, color flow and spectral Doppler. Exam performed in department. Patient sent to ED per Dr. Vann's office. A preliminary report was called and/or faxed to Dr. Soo De Leon. VL/Venous Duplex US - Thierno Extrem Interpretation Summary Acute deep vein thrombosis is noted in the left popliteal vein, tibioperoneal trunk vein, posterior tibial vein, peroneal vein, soleus vein. Deep veins of the right lower extremity are patent and compressible segmentally. There is no evidence of right lower extremity deep vein thrombosis. The bilateral great saphenous veins appear patent and compressible segmentally. Hypoechoic, non vascular structure noted right groin deep to vessels ___ Ordering Physician: Kaushik Vann Referring Physician: Kayla Erwin Performed By: Rosalia Sanders, RDCS, RVT 05/20/24 1533 Date Kevin Mcpherson MD CC: Dr. Kayla Erwin MD; Dr. Kaushik Vann MD Date Dictated: 05/20/24 1049 Date Transcribed: 05/20/24 153 Incident Response Coordinator: Signed Normal [facility] Oncology Visit Reporton 04-22 Oncology Visit Report [facility] [address] [facility] [place] [address] OFFICE VISIT Date of Service: 05/13/24 1610 MR#: [id number] Acct: [id number] Name: MALVIN ROBLERO BRANDEN Rep #: [id number] : 1955 From: Kaushik Vann MD Age/Sex: 68/M Location: [place] Status: Signed HPI Subjective Date of Service 05/13/24 Chief Complaint F/u for thrombophilia/muscle bleed. History of Present Illness 68y.o.man presented with pleuritic chest pain and dyspnea [...] in for follow-up. Denies new clotting episodes, had pain in the L hip and hip replacement was done in March 2018. Had L shoulder surgery in February 2020. Was on Xarelto, had R hip pain, CT on 03/21/2024 showed R iliacus muscle bleed so stopped. CT scan was repeated which showed decrease in size of iliacus muscle. He had MRI pelvis and R hip done, comes for follow up. Feels well, Pain R hip area is improving, had L lower back pain, now taking Aleve and baclofen. [facility] Medical History TGA (transient global amnesia) Hypertension Factor II deficiency Surgical History History of left hip replacement History of repair of rotator cuff History of shoulder surgery H/O sinus surgery History of repair of anterior cruciate ligament of right knee History of repair of anterior cruciate ligament of left knee Hx of tonsillectomy Family History Father Arthritis Hypertension Mother Hypertension Social History household members: spouse Smoking Status: Never smoker alcohol intake: never substance use type: does not use Intake Vital Signs 04/29/24 09:05 05/13/24 16:11 Height 5 ft 11 in 5 ft 11 in Weight: 85.729 kg BMI 26.3 BP 139/84 H Blood Pressure Location Rt brachial Position Sitting Respiration 16 Pulse 53 L Pulse Source Monitor Temp 96.7 F L Temperature Source Temporal Artery Pulse Oximetry (%) 99 Oxygen Delivery Method room air Intake Is patient in pain?: Yes (left hip) Pain scale (1-10): 5 Allergies cyclobenzaprine HCl (From Flexeril) Allergy (Severe, Verified 05/13/24 16:12) Swelling ketorolac tromethamine (From Toradol) Allergy (Severe, Verified 05/13/24 16:12) Swelling levofloxacin (From Levaquin) Allergy (Severe, Verified 05/13/24 16:12) Anaphylaxis meloxicam Allergy (Severe, Verified 05/13/24 16:12) Swelling orphenadrine citrate (From Norflex) Allergy (Severe, Verified 05/13/24 16:12) Swelling Penicillins Allergy (Severe, Verified 05/13/24 16:12) Rash triamcinolone acetonide (From Kenalog) Allergy (Severe, Verified 05/13/24 16:12) Swelling Medications ???Medication ???Instructions ???Recorded ???Confirmed ???Type omeprazole 40 mg capsule,delayed 1 tab PO DAILY gerd 10/04/13 04/29/24 History release losartan 50 mg tablet 50 mg PO DAILY bp 04/16/15 04/29/24 History metoprolol tartrate 25 mg tablet 25 mg PO DAILY blood pressure 01/24/19 04/29/24 History acetaminophen 500 mg capsule 1,000 mg PO Q8H PRN Pain 10/27/20 04/29/24 History rivaroxaban 10 mg tablet 10 mg PO DAILY #90 tabs 04/07/23 04/29/24 Rx mometasone 50 mcg/actuation nasal 2 spray intranasal DAILY 03/20/24 04/29/24 History spray (Nasonex 24hr Allergy) baclofen 5 mg tablet 5 mg PO BID 05/13/24 05/13/24 History naproxen sodium 220 mg capsule 220 mg PO BID PRN 05/13/24 05/13/24 History (Aleve) Have you fallen in the past year?: No Central Venous Access Central Venous Access: No 05/08/2024 reviewed, MRI/Pelvis W/WO Contrast IMPRESSION: 1. 25% decrease in the size of the right iliopsoas bursa (bursitis). There is no evidence of muscle bleed or aggressive or infectious process. Bursitis is usually inflammatory or related to trauma/sprain injury. Electronically Signed: Elia Mattson MD at 14:54 EST 05/08/2024 reviewed. MRI/Lower Ext Joint Only W/WO Cont IMPRESSION: Degenerative arthrosis of the right hip joint with a small right hip joint effusion. 3.0 x 1.9 x 6.6 cm rim-enhancing fluid collection along the medial aspect of the right iliopsoas muscle, compatible with iliopsoas bursitis versus resolving hematoma. Electronically Signed: Leon Chu MD at 13:42 EST Exam Physical Exam Const alert, oriented x3 and no apparent distress Coding Level of Care Co (more content not included)... Normal [facility] Lower Ext Joint Only W/WO Co nton 05-08-2024 Lower Ext Joint Only W/WO Cont [facility] [address] [place], [place] [address] Lower Ext Joint Only W/WO Cont MR#: [id number] Acct: [id number] Name: MALVIN ROBLERO Rep #: [id number] : 1955 M 68 From: Leon Chu MD PCP: Dr. Kayla Erwin MD Status: REG CLI Study: Lower Ext Joint Only W/WO Cont Date of Exam: 07/09/23 Exam# [id number] Ordering Dr: Kaushik Vann MD [id number] STUDY: MRI RIGHT HIP, WITHOUT AND WITH IV CONTRAST REASON FOR EXAM: Male, 68 years old. Muscle bleed, right iliopsoas muscle. TECHNIQUE: Standardized fat and water weighted pulse sequences were obtained in all 3 orthogonal planes. Following the intravenous administration of 17 mL Clariscan contrast, additional postcontrast imaging was obtained. COMPARISON: CT abdomen/pelvis dated 04/25/2024. FINDINGS: There is degenerative arthrosis of the right hip joint with joint space narrowing, marginal osteophyte formation, high-grade chondromalacia, and small foci of subchondral edema/cyst formation. There is a small right hip joint effusion. There is no demonstrated labral tear. There is no demonstrated fracture. Normal gluteus minimus, medius and iliopsoas tendons and distal insertions. There is a rim-enhancing fluid collection along the medial aspect of the right iliopsoas muscle, overall measuring 3.0 cm AP, 1.9 cm transverse, and 6.6 cm craniocaudad, compatible with iliopsoas bursitis versus resolving hematoma. There is no trochanteric bursitis. Normal superior and inferior pubic rami. Normal pubic symphysis. Normal ischial tuberosity. Normal origin of the hamstring tendons. Normal visualized iliac wing, sacroiliac joint, and sacral ala. Normal visualized soft tissue structures of the pelvis. There is no abnormal enhancing mass. MRI/Lower Ext Joint Only W/WO Cont IMPRESSION: Degenerative arthrosis of the right hip joint with a small right hip joint effusion. 3.0 x 1.9 x 6.6 cm rim-enhancing fluid collection along the medial aspect of the right iliopsoas muscle, compatible with iliopsoas bursitis versus resolving hematoma. Electronically Signed: Leon Chu MD at 13:42 EST , CC: Dr. Kayla Erwin MD; Dr. Kaushik Vann MD Incident Response Coordinator: Signed Normal [facility] Pelvis W/WO Contraston 05-08 Pelvis W/WO Contrast [facility] [address] [place] [address] Pelvis W/WO Contrast MR#: [id number] Acct: [id number] Name: MALVIN ROBLERO BRANDEN Rep #: [id number] : 1955 68 From: Elia aleman MD PCP: Dr. Kayla Erwin MD Status: [facility] Study: Pelvis W/WO Contrast Date of Exam: 05/08/24 Exam# [id number] Ordering Dr: Kaushik Vann MD [id number] STUDY: MR PELVIS WITH T WITHOUT CONTRAST REASON FOR EXAM: Male, 68 years old. MUSCLE BLEED F/U TO CT ABDOMEN ABNORMALITY RT ILIAC MUSCLE; LBP , RT ANTERIOR GROIN PAIN TECHNIQUE: Standardized fat and water weighted pulse sequences were obtained in all 3 orthogonal planes, pre-and post contrast administration. IV 17ml clariscan was administered for the contrast portion of the examination. COMPARISON: CT of abdomen and pelvis dated April 25, 2024. FINDINGS: CT of abdomen and pelvis dated April 25, 2024 showed a mild to moderately fluid distended right iliopsoas bursa that previously measured 3.92 x 2.42 cm in diameter. On the current study versus still fluid distended but decreased in size to 2.99 x 1.45 cm, and is visibly smaller by approximately 25% since the prior study. Mild bilateral trochanteric gluteal tendinosis and endoscopically is present. A postoperative seroma is present at the lateral aspect of the left hip joint with fibrosis and other postsurgical changes. The left prosthesis is intact without complications. There are no acute fractures or areas of marrow edema or evidence of infection. No aggressive bony or soft tissue abnormalities are present. Mild to moderate right hip osteoarthritis with cortical spurring at the femoral head neck junction and rim of the acetabulum. Diffuse degenerative tearing of the lateral superior labrum of the right hip joint. A small right hip joint effusion is present with mild right hip joint space narrowing. No intramuscular abscess is present. No visualized intramuscular edema or swelling. There is no evidence of intramuscular or subcutaneous hemorrhage. At the origin of the left gluteus minimus muscle. Postcontrast images: No abnormal enhancing lesions of the peritoneum, large bowel, small bowel, or bony structures. Bladder: Normal. No bladder masses or cystitis or bladder wall thickening or intraluminal filling defects. Inguinal regions: No lymphadenopathy or hernia or fluid collection is present. Normal urinary bladder. Normal visualized small intestine. Normal visualized colon. There is no pelvic fluid. There is no pelvic mass lesion or lymphadenopathy. Normal visualized pelvic arteries. There are diffuse degenerative changes of the visualized lumbar spine. Normal abdominal wall. Small bilateral testicular hydroceles are present. MRI/Pelvis W/WO Contrast IMPRESSION: 1. 25% decrease in the size of the right iliopsoas bursa (bursitis). There is no evidence of muscle bleed or aggressive or infectious process. Bursitis is usually inflammatory or related to trauma/sprain injury. Electronically Signed: Elia Mattson MD at 14:54 EST , CC: Dr. Kayla Erwin MD; Dr. Kaushik Vann MD Incident Response Coordinator: Signed Normal [facility] Oncology Visit Reporton Oncology Visit Report [facility] [place] [address] OFFICE VISIT Date of Service: 04/29/24904 MR#: [id number] Acct: [id number] Name: MALVIN ROBLERO Rep #: [id number] : 1955 From: Kaushik Vann MD Age/Sex: 68/M Location: [place] Status: Signed HPI Subjective Date of Service 04/29/24 Chief Complaint F/u for thrombophilia/muscle bleed. History of Present Illness 68y.o.man presented with pleuritic chest pain and dyspnea [...] in for follow-up. Denies new clotting episodes, had pain in the L hip and hip replacement was done in March 2018. Had L shoulder surgery in February 2020. Was on Xarelto, had R hip pain, CT on 03/21/2024 showed R iliacus muscle bleed so stopped. CT scan was repeated and comes for follow up. Feels well, Pain R hip area is improving. [facility] Medical History TGA (transient global amnesia) Hypertension Factor II deficiency Surgical History History of left hip replacement History of repair of rotator cuff History of shoulder surgery H/O sinus surgery History of repair of anterior cruciate ligament of right knee History of repair of anterior cruciate ligament of left knee Hx of tonsillectomy Family History Father Arthritis Hypertension Mother Hypertension Social History household members: spouse Smoking Status: Never smoker alcohol intake: never substance use type: does not use Intake Vital Signs 04/03/24 09:36 04/29/24 09:05 Height 5 ft 11 in 5 ft 11 in Weight: 83.461 kg 84.482 kg BMI 25.7 25.9 BP 124/82 H 103/67 Blood Pressure Location Lt brachial Lt brachial Position Sitting Sitting Respiration 18 18 Pulse 49 L 7 L Pulse Source Monitor Monitor Temp 98.4 F 98.5 F Temperature Source Temporal Artery Temporal Artery Pulse Oximetry (%) 98 99 Oxygen Delivery Method room air room air Intake Is patient in pain?: Yes (right groin and hip) Pain scale (1-10): 3 Allergies cyclobenzaprine HCl (From Flexeril) Allergy (Severe, Verified 04/29/24 09:08) Swelling ketorolac tromethamine (From Toradol) Allergy (Severe, Verified 04/29/24 09:08) Swelling levofloxacin (From Levaquin) Allergy (Severe, Verified 04/29/24 09:08) Anaphylaxis meloxicam Allergy (Severe, Verified 04/29/24 09:08) Swelling orphenadrine citrate (From Norflex) Allergy (Severe, Verified 04/29/24 09:08) Swelling Penicillins Allergy (Severe, Verified 04/29/24 09:08) Rash triamcinolone acetonide (From Kenalog) Allergy (Severe, Verified 04/29/24 09:08) Swelling Medications ???Medication ???Instructions ???Recorded ???Confirmed ???Type omeprazole 40 mg capsule,delayed 1 tab PO DAILY gerd 10/04/13 04/29/24 History release losartan 50 mg tablet 50 mg PO DAILY bp 04/16/15 04/29/24 History metoprolol tartrate 25 mg tablet 25 mg PO DAILY blood pressure 01/24/19 04/29/24 History acetaminophen 500 mg capsule 1,000 mg PO Q8H PRN Pain 10/27/20 04/29/24 History rivaroxaban 10 mg tablet 10 mg PO DAILY #90 tabs 04/07/23 04/29/24 Rx mometasone 50 mcg/actuation nasal 2 spray intranasal DAILY 03/20/24 04/29/24 History spray (Nasonex 24hr Allergy) Have you fallen in the past year?: No Central Venous Access Central Venous Access: No 04/25/2024 CT a/p reviewed. CT/Abdomen/Pelvis W IV Cont ONLY IMPRESSION: Interval further decrease in size of the right iliopsoas muscle with the fluid collection in the distal portion of the right iliac this muscle suggestive of either resolving hematoma or possible injury to the distal portion of the tendon. Electronically Signed: João Heard MD at 14:05 EST Exam Physical Exam Const alert, oriented x3 and no apparent distress Coding Level of Care Code Off vis,est,level 3 Exam Problem Focused Diagnoses Muscle hemorrhage M62.89 Prothrombin gene mutation D68.52 Assessment and Plan Assessment and Plan (1) Muscle hemorrhage: Status: Acute Comment: CT 04/25/2024 shows decrease in R iliacus muscle bleed. + Fluid collection R groin area. Plan: To stay off vigorous exercises. To hold L knee replacement. To obtain MRI R Hip/Pelvis, Will discuss case with Dr. Reyes after MRI. (2) Prothrombin gene mutation: Status: Chronic Comment: Off Za (more content not included)... Normal [facility] Abdomen/Pelvis W IV Cont ONL Yon 04-25-2024 Abdomen/Pelvis W IV Cont ONLY [facility] [address] [place], [place] [address] Abdomen/Pelvis W IV Cont ONLY MR#: [id number] Acct: [id number] Name: MALVIN ROBLERO BRANDEN Rep #: [id number] : 1955 M 68 From: João lawrence MD PCP: Dr. Kayla Erwin MD Status: REG CLI Study: Abdomen/Pelvis W IV Cont ONLY Date of Exam: Exam# [id number] Ordering Dr: Kaushik Vann MD [id number] STUDY: CT ABDOMEN AND PELVIS WITH CONTRAST REASON FOR EXAM: Male, 68 years old. MUSCLE BLEED. History of hemorrhage into the right iliopsoas muscle. RADIATION DOSAGE (If Supplied By Facility): CTDIvol = ( 16.61 ) mGy, DLP = ( 997.04 ) mGycm TECHNIQUE: Transaxial images were obtained from the dome of the diaphragm to the symphysis pubis without oral contrast. IV 100mL Isovue-300 was administered. Sagittal and coronal images were reconstructed. Individualized dose optimization techniques were used for this CT. COMPARISON: Comparison is made with prior study dated March 28, 2024 and March 21, 2000. FINDINGS: Minimal degree of increased markings at the lung bases suggestive of atelectasis. The visualized portions of the heart are within normal limits. Normal liver. Normal gallbladder and extrahepatic biliary system. Normal spleen. Normal pancreas. Normal bilateral adrenal glands. Normal right kidney. Normal left kidney. Normal visualized stomach. Normal small intestine. Normal colon. The appendix is visualized and appears normal. Normal abdominal aorta. Normal inferior vena cava. Normal retroperitoneum. Normal urinary bladder. Since prior study, there is been further decrease in size of the right iliopsoas muscle. No inflammatory changes are seen at this time. There is a persistent 2 cm x 2.1 cm x 5.1 cm fluid collection in the medial aspect of the distal right psoas muscle. This extends into the insertion of the iliopsoas muscle. This may represent either injury to the distal tendon or resolving hematoma. The patient is status post bilateral hip replacement. CT/Abdomen/Pelvis W IV Cont ONLY IMPRESSION: Interval further decrease in size of the right iliopsoas muscle with the fluid collection in the distal portion of the right iliac this muscle suggestive of either resolving hematoma or possible injury to the distal portion of the tendon. Electronically Signed: João Heard MD at 14:05 EST , CC: Dr. Kayla Erwin MD; Dr. Kaushik Vann MD Incident Response Coordinator: Signed Normal [facility] CREATININE FINGERSTICKon CREATININE WB < 1.0 Normal 0.70-1.30 [facility] Comment on above: Performed By: #### L 9100.0200 ####[facility] [address] [place], [address] EGFR WB > 60.0000 Normal >60 [facility] Comment on above: Performed By: #### L 9100.0200 ####[facility] [address] [place], [address] SCREEN: MRSA/MSSAOrdered By: Nilo Monte on 04-24-2024 Interpretation and review of laboratory results Normal [facility] Methicillin Resistant S. Aureus By Pcr Negative Negative [facility] Staphylococcus Aureus By Pcr Negative Negative [facility] This test was perfor med using a real time PCR assay. Results should be interpreted in conjunction with other clinical and laboratory findings. A positive result does not necessarily indicate the presence of viable organism. This test should not be used as a test of cure. For E-swab specimens, this test was developed and its performance characteristics determined by the Clinical Microbiology Laboratory at [facility]. It has not been cleared or approved by the FDA.The laboratory is regulated under CLIA as qualified to perform high-complexity testing. This test is used for clinical purposes. It should not be regarded as investigational or for research. [facility] ALBUMINon 04-23-2024 Albumin [Mass/Vol] 4.3 g/dL 3.5 - 5.0 g/dL [facility] Albumin [Mass/Vol] 4.3 g/dL Normal 3.5-5.[address] [facility] Comment on above: Performed By: #### C A, CHM6, ALB, CRP, MGO #### [facility] (DEFAULT) [address] [address] C REACTIVE PROTEINon 024 CRP High sensitivity method [Mass/Vol] 1.60 mg/L NINF - 10.00 mg/L [facility] CRP [Mass/Vol] 1.60 mg/L Normal <10.00 [facility] Comment on above: Performed By: #### C A, CHM6, ALB, CRP, MGO #### [facility] (DEFAULT) [address] [place] [address] CALCIUMon 04-23-2024 Calcium [Mass/Vol] 9.1 mg/dL 8.6 - 10. 5 mg/dL [facility] Calcium [Mass/Vol] 9.1 mg/dL Normal 8.6-10.[address] [facility] Comment on above: Performed By: #### C A, CHM6, ALB, CRP, MGO #### U [facility] (DEFAULT) [address] [place] [address] CBC AND ELECTRONIC DIFFon Basophils (Bld) [#/Vol] 0.04 10*3/uL Normal 0.00-0.09 [facility] Comment on above: Performed By: #### C A, CHM6, ALB, CRP, MGO #### U [facility] (DEFAULT) [address] [place] [address] Basophils/100 WBC (Bld) 0.6 % Normal O [facility] Comment on above: Performed By: #### C A, CHM6, ALB, CRP, MGO #### [facility] (DEFAULT) [address] [place] [address] DIFF STATUS Electronic Differential Normal [facility] Comment on above: Performed By: #### C A, CHM6, ALB, CRP, MGO #### [facility] (DEFAULT) [address] [place] [address] Eosinophils (Bld) [#/Vol] 0.18 10*3/uL Normal 0.00-0.48 [facility] Comment on above: Performed By: #### C A, CHM6, ALB, CRP, MGO #### [facility] (DEFAULT) [address] [address] Eosinophils/100 WBC (Bld) 2.6 % Normal [facility] Comment on above: Performed By: #### C A, CHM6, ALB, CRP, MGO #### [facility] (DEFAULT) [address] [place] [address] Hematocrit (Bld) [Volume fraction] 47.8 % Normal 39.6-48.8 [facility] Comment on above: Performed By: #### C A, CHM6, ALB, CRP, MGO #### [facility] (DEFAULT) [address] [address] Hemoglobin (Bld) [Mass/Vol] 15.8 g/dL Normal 13.4-16.8 [facility] Comment on above: Performed By: #### C A, CHM6, ALB, CRP, MGO #### [facility] (DEFAULT) [address] [address] Immature Grans % 0.6 % Normal [facility] Comment on above: Performed By: #### C A, CHM6, ALB, CRP, MGO #### [facility] [place] (DEFAULT) [address] [address] Immature Grans Absolute 0.04 K/uL Normal <=0.07 O [facility] Comment on above: Performed By: #### C A, CHM6, ALB, CRP, MGO #### [facility] (DEFAULT) [address] [address] Lymphocytes (Bld) [#/Vol] 1.29 10*3/uL Normal 0.83-3.57 [facility] Comment on above: Performed By: #### C A, CHM6, ALB, CRP, MGO #### [facility] [place] (DEFAULT) [address] [address] Lymphocytes/100 WBC (Bld) 18.9 % Normal [facility] Comment on above: Performed By: #### C A, CHM6, ALB, CRP, MGO #### [facility] [place] (DEFAULT) [address] [place] [address] MCV (RBC) [Entitic vol] 90.9 fL Normal 79.0-94.5 O [facility] Comment on above: Performed By: #### C A, CHM6, ALB, CRP, MGO #### [facility] [place] (DEFAULT) [address] [place] [address] Mean Cell Hgb 30.0 pg Normal 26.1-33.3 [facility] Comment on above: Performed By: #### C A, CHM6, ALB, CRP, MGO #### [facility] (DEFAULT) [address] [place] [address] Mean Cell Hgb Conc 33.1 g/dL Normal 31.9-36.[address] [facility] Comment on above: Performed By: #### C A, CHM6, ALB, CRP, MGO #### [facility] (DEFAULT) [address] [place] [address] Monocytes (Bld) [#/Vol] 0.56 10*3/uL Normal 0.24-0.93 [facility] Comment on above: Performed By: #### C A, CHM6, ALB, CRP, MGO #### [facility] (DEFAULT) [address] [place] [address] Monocytes/100 WBC (Bld) 8.2 % Normal [facility] Comment on above: Performed By: #### C A, CHM6, ALB, CRP, MGO #### [facility] [place] (DEFAULT) [address] [place] [address] Nucleated RBC 0.0 /100 WBC Normal <=0.2 [facility] Comment on above: Performed By: #### C A, CHM6, ALB, CRP, MGO #### [facility] [place] (DEFAULT) [address] [place] [address] Platelet mean volume (Bld) [Entitic vol] 9.5 fL Normal 8.7-12.3 [facility] Comment on above: Performed By: #### C A, CHM6, ALB, CRP, MGO #### [facility] (DEFAULT) [address] [place] [address] Platelets (Bld) [#/Vol] 173 10*3/uL Normal 146-337 [facility] Comment on above: Performed By: #### C A, CHM6, ALB, CRP, MGO #### [facility] (DEFAULT) [address] [place] [address] RBC (Bld) [#/Vol] 5.26 10*6/uL Normal 4.38-5.83 [facility] Comment on above: Performed By: #### C A, CHM6, ALB, CRP, MGO #### [facility] (DEFAULT) [address] [place] [address] RBC Distribution 13.0 % Normal 10.9-14.3 [facility] Comment on above: Performed By: #### C A, CHM6, ALB, CRP, MGO #### [facility] (DEFAULT) [address] [place] [address] Segs + Bands Auto 69.1 % Normal [facility] Comment on above: Performed By: #### C A, CHM6, ALB, CRP, MGO #### [facility] (DEFAULT) [address] [place] [address] Segs + Bands,Absolute Auto 4.73 K/uL Normal 1.57-6.19 [facility] Comment on above: Performed By: #### C A, CHM6, ALB, CRP, MGO #### [facility] (DEFAULT) [address] [place] [address] WBC (Bld) [#/Vol] 6.84 10*3/uL Normal 3.73-10.10 [facility] Comment on above: Performed By: #### C A, CHM6, ALB, CRP, MGO #### [facility] (DEFAULT) [address] [place] [address] CHEM 6 (LYTES, BUN CREA)on 1 06-24-2023 Anion gap [Moles/Vol] 12 mmol/L 7 - 17 mmol/L [facility] Chloride [Moles/Vol] 104 mmol/L 98 - 10 8 mmol/L [facility] CO2 [Moles/Vol] 29 mmol/L 21 - 31 mmol/L [facility] Creatinine [Mass/Vol] 1.01 mg/dL 0.70 - 1.30 mg/dL [facility] eGFR, CKD-EPI, Male 81 - PINF [facility] Comment on above: Reported eGFR is bas ed on the CKD-EPI 2020 equation using creatinine, age, and sex. Potassium [Moles/Vol] 4.3 mmol/L 3.5 - 5.0 mmol/L [facility] Sodium [Moles/Vol] 141 mmol/L 135 - 145 mmol/L [facility] Urea nitrogen [Mass/Vol] 20 mg/dL 7 - 25 mg/dL [facility] Urea nitrogen/Creatinine [Mass ratio] 20 mg/mg [facility] Anion gap [Moles/Vol] 12 mmol/L Normal 7-17 [facility] Comment on above: Performed By: #### C A, CHM6, ALB, CRP, MGO #### [facility] (DEFAULT) [address] [place] [address] Chloride [Moles/Vol] 104 mmol/L Normal 98-108 [facility] Comment on above: Performed By: #### C A, CHM6, ALB, CRP, MGO #### [facility] (DEFAULT) [address] [place] [address] CO2 [Moles/Vol] 29 mmol/L Normal 21-31 [facility] Comment on above: Performed By: #### C A, CHM6, ALB, CRP, MGO #### [facility] (DEFAULT) [address] [place] [address] Creatinine [Mass/Vol] 1.01 mg/dL Normal 0.70-1.30 [facility] Comment on above: Performed By: #### C A, CHM6, ALB, CRP, MGO #### [facility] (DEFAULT) [address] [place] [address] GFR/1.73 sq M.predicted among non-blacks MDRD (S/P/Bld) [Vol rate/Area] 81 mL/min/{1.73_m2} Normal >=60 [facility] Comment on above: Result Comment: Repo rted eGFR is based on the CKD-EPI 2020 equation using creatinine, age, and sex. Performed By: #### C A, CHM6, ALB, CRP, MGO #### [facility] (DEFAULT) [address] [place] [address] Potassium [Moles/Vol] 4.3 mmol/L Normal 3.5-5.0 [facility] Comment on above: Performed By: #### C A, CHM6, ALB, CRP, MGO #### [facility] (DEFAULT) [address] [place] [address] Sodium [Moles/Vol] 141 mmol/L Normal 135-[address] [facility] Comment on above: Performed By: #### C A, CHM6, ALB, CRP, MGO #### [facility] (DEFAULT) [address] [place] [address] Urea nitrogen [Mass/Vol] 20 mg/dL Normal 7-25 [facility] Comment on above: Performed By: #### C A, CHM6, ALB, CRP, MGO #### [facility] (DEFAULT) [address] [place] [address] Urea nitrogen/Creatinine [Mass ratio] 20 mg/mg Normal [facility] Comment on above: Performed By: #### C A, CHM6, ALB, CRP, MGO #### [facility] (DEFAULT) [address] [place] [address] HEMOGLOBIN A1Con 04-23-2024 Average glucose Estimated from glycated hemoglobin (Bld) [Mass/Vol] 94 mg/dL [facility] HbA1c (Bld) [Mass fraction] 4.9 % 4.7 - 5.6 % [facility] Glucose [Mass/Vol] 94 mg/dL Normal [facility] Comment on above: Performed By: #### L [id number] #### [facility] (DEFAULT) [address] [place] [address] Hemoglobin A1C HPLC 4.9 % Normal 4.7-5.6 [facility] Comment on above: Performed By: #### L [id number] #### [facility] [place] (DEFAULT) [address] [place] [address] MAGNESIUMon 04-23-2024 Magnesium [Mass/Vol] 2.3 mg/dL 1.6 - 2 .6 mg/dL [facility] Magnesium [Mass/Vol] 2.3 mg/dL Normal 1.6-2.6 [facility] Comment on above: Performed By: #### C A, CHM6, ALB, CRP, MGO #### [facility] (DEFAULT) [address] [place] [address] NICOTINE SCREEN URINEOrdered By: Marla Salcedo on 04-23-2024 Cotinine (U) [Mass/Vol] Not detected Cuto ff: 500 ng/mL [facility] Interpretation and review of laboratory results Normal [facility] NICOTINE SCREEN URINEon Nicotine (Cotinine) Not detected Normal Cutoff: 500 ng/mL [facility] Comment on above: Performed By: #### C A, CHM6, ALB, CRP, MGO #### [facility] (DEFAULT) [address] [place] [address] No Panel Informationon 04-23 [facility] Interpretation and review of laboratory results Normal [facility] PROTIME-INRon 04-23-2024 INR Coag (Bld) [Relative time] 1.0 {INR} 0.9 - 1.1 [facility] Interpretation and review of laboratory results Normal [facility] PT Coag (PPP) [Time] 13.4 s [facility] INR Coag (PPP) [Relative time] 1.0 {INR} Normal 0.9-1.1 [facility] Comment on above: Performed By: #### C A, CHM6, ALB, CRP, MGO #### [facility] (DEFAULT) [address] [place] [address] PT Coag (PPP) [Time] 13.4 s Normal 11.9-14.2 [facility] Comment on above: Performed By: #### C A, CHM6, ALB, CRP, MGO #### [facility] (DEFAULT) [address] [place] [address] PTT W/MIXING STUDY PERF ONLY on 04-23-2024 aPTT Coag (Bld) [Time] 26.7 s Normal 24.0-34.3 [facility] Comment on above: Performed By: #### L [id number] #### [facility] (DEFAULT) [address] [place] [address] PTT Mixing Study With Normal Plasma Not Indicated Normal [facility] Comment on above: Performed By: #### L [id number] #### [facility] (DEFAULT) [address] [place] [address] SCREEN: MRSA/MSSAon 04-23-20 24 Methicillin Resistant S. Aureus By Pcr Negative Normal Negative [facility] Comment on above: Order Comment: This test was performed using a real time PCR assay. Results should be interpreted in conjunction with other clinical and laboratory findings. A positive result does not necessarily indicate the presence of viable organism. This test should not be used as a test of cure. For E-swab specimens, this test was developed and its performance characteristics determined by the Clinical Microbiology Laboratory at [facility]. It has not been cleared or approved by the FDA.The laboratory is regulated under CLIA as qualified to perform high-complexity testing. This test is used for clinical purposes. It should not be regarded as investigational or for research. Performed By: #### S CRSB #### [facility] [place] (DEFAULT) [address] [place] [address] Staphylococcus Aureus By Pcr Negative Normal Negative [facility] Comment on above: Order Comment: This test was performed using a real time PCR assay. Results should be interpreted in conjunction with other clinical and laboratory findings. A positive result does not necessarily indicate the presence of viable organism. This test should not be used as a test of cure. For E-swab specimens, this test was developed and its performance characteristics determined by the [facility] at [facility]. It has not been cleared or approved by the FDA.The laboratory is regulated under CLIA as qualified to perform high-complexity testing. This test is used for clinical purposes. It should not be regarded as investigational or for research. Performed By: #### S CRSB #### [facility] (DEFAULT) [address] [place] [address] SEDIMENTATION RATE, AUTOMATE Don 04-23-2024 ESR (Bld) [Velocity] 2 mm/h [facility] Interpretation and review of laboratory results Normal [facility] ESR Westergren 2 mm/hr Normal <20 [facility] Comment on above: Performed By: #### C A, CHM6, ALB, CRP, MGO #### [facility] (DEFAULT) [address] [place] [address] TYPE AND SCREEN - PREADMISSI ONon 04-23-2024 ABO/RH(D) TYPE Positive [facility] Outdate Specimen 05/23/2024 23:59 [facility] ABO/RH(D) TYPE Positive Normal [facility] Comment on above: Performed By: #### X MPO #### [facility] (DEFAULT) [address] [address] Outdate Specimen 05/23/2024 23:59 Normal [facility] Comment on above: Performed By: #### X MPO #### [facility] (DEFAULT) [address] [address] CNOVSPon 04-03-2024 CNOVSP Visit (SP) Office (HEMAWS) ----- MALVIN ROBLERO ([id number]) 1955 M Date Time Provider Department 04/03/24 11:00 AM GARY RODRIGUEZ During your visit today, we recorded the following information about you: Temperature Pulse Blood pressure Weight 97.8 degrees 51/minute 133/83 83.2 kg Height 1.8 m Gary Rodriguez MD 04/03/2024 3:07 PM Signed HISTORY OF PRESENT ILLNESS: Malvin Roblero is a 68 year old male h/o PE did ac for 6 months, 2015 2 weeks after stopping ac 2016 new SOB and pleuritic chest pain new PE 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 Did well until started with right hip pain, progressive, possibly [place] 03-21-24 showed possible bleed in iliacus muscle. D dimer normal. Has been on Xarelto 10 mg daily for 2 years now Xarelto stopped, pain has improved, but not completely resolved. CT on Mar 28 2024 shows improvement in iliac muscle. CLINICAL IMPRESSION: History recurrent unprovoked PE Iliac muscle bleed likely stems from overwork of muscle RECOMMENDATION/PLAN: 1. Favor resuming ac at same dose given lack of thrombotic issues, and severity of clt issues while off of ac. Agree with prophylactic dosing at this time. Written and verbal health teaching given to patient, patient verbalizes understanding and agrees with treatment plan. PAST MEDICAL HISTORY Diagnosis Date Essential hypertension Factor II deficiency (HCC) TGA (transient global amnesia) PAST SURGICAL HISTORY Procedure Laterality Date OPEN REPAIR OF ROTATOR CUFF ACUTE Left 2020 PAST SURGICAL HISTORY OF 1959 Tonsillectomy PAST SURGICAL HISTORY OF 1975 sinus surgery PAST SURGICAL HISTORY OF Right 1995 ACLreplacement PAST SURGICAL HISTORY OF Left 1994 ACL AND MCL replacement REPAIR ROTATOR CUFF,ACUTE Right 2018 TOTAL HIP REPLACEMENT Left 2018 FAMILY HISTORY Problem Relation Age of Onset Hypertension Mother Dementia Mother Neuropathy Mother Hypertension Father Blood Clots Father other (brain tumor) Father Arthritis Father No Known Problems Sister No Known Problems Sister No Known Problems Brother Breast Cancer Maternal Grandmother No Known Problems Maternal Grandfather No Known Problems Paternal Grandmother Leukemia Paternal Grandfather Social History Tobacco Use Smoking status: Never Smokeless tobacco: Never Vaping Use Vaping status: Never Used Substance Use Topics Alcohol use: Never Drug use: Never ALLERGIES: ALLERGIES Allergen Reactions Cyclobenzaprine Swelling throat swelling Ketorolac Swelling Meloxicam Swelling Orphenadrine Swelling Penicillins Rash Triamcinolone Swelling Levaquin [Levofloxa* Anaphylaxis CURRENT OUTPATIENT MEDICATIONS: losartan (COZAAR) 50 mg tablet Take 50 mg by mouth once daily. omeprazole (PRILOSEC) 40 mg capsule Take 40 mg by mouth once daily. rivaroxaban (XARELTO) 20 mg tablet Take 20 mg by mouth once daily. metoprolol tartrate, short acting, (LOPRESSOR) 25 mg tablet Take 25 mg by mouth twice daily. mometasone (NASONEX) 50 mcg/actuation nasal spray Use 2 Sprays in the nose once daily. levoFLOXacin (LEVAQUIN) 500 mg tablet Take 500 mg by mouth once daily. REVIEW OF SYSTEMS: GENERAL: No fever, night sweats, weight loss or malaise. All other reviewed and negative other than HPI. PHYSICAL EXAMINATION: VITAL SIGNS: BP 133/83 Pulse 51 Temp (Src) 97.8 (Temporal) Ht 5' 10.866 (1.80m) Wt 183 lb 8 oz (83.2kg) SpO2 100% BMI 25.69 kg/(m2). GENERAL APPEARANCE: Well appearing, in no acute distress, alert and oriented x3, well-hydrated, well nourished. I spent a total of 45 minutes on the date of the service which included preparing to see the patient, [id number] patient care, completing clinical documentation, obtaining and/or reviewing separately obtained history, counseling and educating the patient/family/caregiver, independently interpreting results (not separately reported), and communicating results to the patient/family/caregiver. Electronically Signed: Gary Rodriguez MD April 03, 2024 11:23 AM Allergies As of Date: 04/03/2024 Noted Allergy Reaction CYCLOBENZAPRINE 11/15/2016 7 - Swelling Comments: throat swelling KETOROLAC 11/15/2016 7 - Swelling MELOXICAM 11/15/2016 7 - Swelling ORPHENADRINE 11/15/2016 7 - Swelling PENICILLINS 10/15/2009 2 - Rash TRIAMCINOLONE 11/15/2016 7 - Swelling LEVAQUIN (LEVOFLOXACIN) 04/03/2024 10 - Anaphylaxis Date Reviewed: 04/03/2024 Reviewed by: Chavez Chowdary MA - Fully Assessed Reason for Visit: New Patient [172] Primary Visit Diagnosis:Other acute pulmonary embolism without acute cor pulmonale (HCC) [I26.99] Prescriptions as of 04/03/2024 - losartan (COZAAR) 50 mg tablet Take 50 mg by mouth once daily. - omeprazole (PRILOSEC) 40 mg capsule Take 40 mg by mouth once daily. - ri (more content not included)... Normal [facility] Oncology Visit Reporton 03-22 Oncology Visit Report [facility] [address] [address] OFFICE VISIT Date of Service: 04/03/24929 MR#: [id number] Acct: [id number] Name: MALVIN ROBLERO BRANDEN Rep #: [id number] : 1955 From: Kaushik Vann MD Age/Sex: 68/M Location: [place] Status: Signed HPI Subjective Date of Service 04/03/24 Chief Complaint F/u for thrombophilia/muscle bleed. History of Present Illness 68y.o.man presented with pleuritic chest pain and dyspnea [...] in for follow-up. Denies new clotting episodes, had pain in the L hip and hip replacement was done in March 2018. Had L shoulder surgery in February 2020. Was on Xarelto, had R hip pain, CT on 03/21/2024 showed R iliacus muscle bleed so stopped. CT scan was repeated and comes for follow up. Feels well, Pain R hip area is improving. [facility] Medical History TGA (transient global amnesia) Hypertension Factor II deficiency Surgical History History of left hip replacement History of repair of rotator cuff History of shoulder surgery H/O sinus surgery History of repair of anterior cruciate ligament of right knee History of repair of anterior cruciate ligament of left knee Hx of tonsillectomy Family History Father Arthritis Hypertension Mother Hypertension Social History household members: spouse Smoking Status: Never smoker alcohol intake: never substance use type: does not use Intake Vital Signs 03/25/24 14:30 04/03/24 09:31 04/03/24 09:36 Height 5 ft 11 in 5 ft 11 in 5 ft 11 in Weight: 84.028 kg 83.461 kg BMI 25.8 25.7 BP 119/81 H 124/82 H Blood Pressure Location Lt brachial Lt brachial Position Sitting Sitting Respiration 18 18 Pulse 61 49 L Pulse Source Monitor Monitor Temp 98.7 F 98.4 F Temperature Source Temporal Artery Temporal Artery Pulse Oximetry (%) 98 98 Oxygen Delivery Method room air room air Intake Allergies cyclobenzaprine HCl (From Flexeril) Allergy (Severe, Verified 04/03/24 09:36) Swelling ketorolac tromethamine (From Toradol) Allergy (Severe, Verified 04/03/24 09:36) Swelling levofloxacin (From Levaquin) Allergy (Severe, Verified 04/03/24 09:36) Anaphylaxis meloxicam Allergy (Severe, Verified 04/03/24 09:36) Swelling orphenadrine citrate (From Norflex) Allergy (Severe, Verified 04/03/24 09:36) Swelling Penicillins Allergy (Severe, Verified 04/03/24 09:36) Rash triamcinolone acetonide (From Kenalog) Allergy (Severe, Verified 04/03/24 09:36) Swelling Medications ???Medication ???Instructions ???Recorded ???Confirmed ???Type omeprazole 40 mg capsule,delayed 1 tab PO DAILY gerd 10/04/13 04/03/24 History release losartan 50 mg tablet 50 mg PO DAILY bp 04/16/15 04/03/24 History metoprolol tartrate 25 mg tablet 25 mg PO DAILY blood pressure 01/24/19 04/03/24 History acetaminophen 500 mg capsule 1,000 mg PO Q8H PRN Pain 10/27/20 04/03/24 History rivaroxaban 10 mg tablet 10 mg PO DAILY #90 tabs 04/07/23 04/03/24 Rx mometasone 50 mcg/actuation nasal 2 spray intranasal DAILY 03/20/24 04/03/24 History spray (Nasonex 24hr Allergy) Have you fallen in the past year?: No 03/28/[address]/Abdomen/Pelvis W IV Cont ONLY IMPRESSION: Interval decrease in size of the right iliac is muscle as described. No new bleeding is seen. Electronically Signed: João Heard MD at 12:48 EST Coding Level of Care Code Off vis,est,level 3 Exam Problem Focused Diagnoses Muscle hemorrhage M62.89 Prothrombin gene mutation D68.52 Assessment and Plan Assessment and Plan (1) Muscle hemorrhage: Status: Acute Comment: CT 03/28/2024 shows decrease in R iliacus muscle bleed. Plan: To stay off vigorous exercises. Can start Aspirin later in the week. Repeat CT a/p to assess bleeding. (2) Prothrombin gene mutation: Status: Chronic Comment: Off Zarelto 10mg daily because of R iliacus muscle bleed. Clinically stable. Plan: To hold Xarelto Orders: Orders Abdomen/Pelvis W IV Cont ONLY 04/25/24 M62.89 - Other specified disorders of muscle Plan Details Follow Up: 3 Weeks Clinical Quality Measures Falls Risk Screening/Assistive Devices Have you fallen in the past year?: No 04/03/24 1732 Date (more content not included)... Normal [facility] CNPLeah 04-01-2024 CNPN Telephone (HEMAWS) ----- OSBALDO,MALVIN ([id number]) 1955 M Date Time Provider Department 04/01/24 SELF HEMAWS During your visit today, we recorded the following information about you: Clair Ayala 04/01/2024 8:40 AM Signed Patient calling in wanting to transfer his hematology care to Dr. Bower. Please review and advise. 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 MICHEAL Simmons Kara, LPN 04/01/2024 3:21 PM Signed records received from [facility]. Thrombophillia. new pt chart given to chemical radiation technician. MICHEAL Horn Stephanie 04/02/2024 3:21 PM Signed Patient scheduled. Shanique Traore Allergies As of Date: 04/01/2024 Noted Allergy Reaction CYCLOBENZAPRINE 11/15/2016 7 - Swelling Comments: throat swelling KETOROLAC 11/15/2016 7 - Swelling MELOXICAM 11/15/2016 7 - Swelling ORPHENADRINE 11/15/2016 7 - Swelling PENICILLINS 10/15/2009 2 - Rash TRIAMCINOLONE 11/15/2016 7 - Swelling Date Reviewed: 04/27/2021 Reviewed by: Consuelo Cabrera MA - Fully Assessed Reason for Visit: Patient Question [1877] Prescriptions as of 04/02/2024 - losartan (COZAAR) 50 mg tablet Take [...] 2 Sprays in the nose once daily. Problem List As Of Date 04/01/2024 Noted Resolved TGA (transient global amnesia) [G45.4] 04/27/2021 Encounter Status:Closed by MICHELA DUNLAP on 04/01/24 [facility] Abdomen/Pelvis W IV Cont ONL Yon 03-28-2024 Abdomen/Pelvis W IV Cont ONLY [facility] Services [address] [place] [address] Abdomen/Pelvis W IV Cont ONLY MR#: [id number] Acct: [id number] Name: MALVIN ROBLERO BRANDEN Rep #: [id number] : 1955 68 From: João lawrence MD PCP: Dr. Kayla Erwin MD Status: REG CLI Study: Abdomen/Pelvis W IV Cont ONLY Date of Exam: Exam# [id number] Ordering Dr: Kaushik Vann MD [id number] STUDY: CT ABDOMEN AND PELVIS WITH CONTRAST REASON FOR EXAM: Male, 68 years old. ILIACUS MUSCLE BLEED. Follow-up examination. RADIATION DOSAGE (If Supplied By Facility): CTDIvol = ( 13.34 ) mGy, DLP = ( 712.12 ) mGycm TECHNIQUE: Transaxial images were obtained from the dome of the diaphragm to the symphysis pubis without oral contrast. IV 100mL Isovue-300 was administered. Sagittal and coronal images were reconstructed. Individualized dose optimization techniques were used for this CT. COMPARISON: Comparison is made with prior study dated March 21, 2024. FINDINGS: The visualized lung bases are unremarkable. The visualized portions of the heart are within normal limits. Normal liver. Normal gallbladder and extrahepatic biliary system. Normal spleen. Normal pancreas. Normal bilateral adrenal glands. Normal right kidney. Normal left kidney. Normal visualized stomach. Normal small intestine. Normal colon. The appendix is visualized and appears normal. Normal abdominal aorta. Normal inferior vena cava. Normal retroperitoneum. Normal urinary bladder. Since prior study, the right iliac is muscle as decreased in size. No new bleeding is seen. It presently measures 4.7 cm x 6.8 cm. Status post left total hip replacement. CT/Abdomen/Pelvis W IV Cont ONLY IMPRESSION: Interval decrease in size of the right iliac is muscle as described. No new bleeding is seen. Electronically Signed: João Heard MD at 12:48 EST Reading Location ID and State: [facility] / [place] , Service support , CC: Dr. Kayla Erwin MD; Dr. Kaushik Vann MD Incident Response Coordinator: Signed Normal [facility] Oncology Visit Reporton Oncology Visit Report [facility] [address] [place] [address] OFFICE VISIT Date of Service: 03/25/24 1430 MR#: [id number] Acct: [id number] Name: OSBALDOMALVIN BRANDEN Rep #: [id number] : 1955 From: Kaushik Vann MD Age/Sex: 68/M Location: [place] Status: Signed HPI Subjective Date of Service 03/25/24 Chief Complaint F/u for thrombophilia. History of Present Illness 67y.o.man presented with pleuritic chest pain and dyspnea [...] in for follow-up. Denies new clotting episodes, had pain in the L hip and hip replacement was done in March 2018. Had L shoulder surgery in February 2020. Was on Xarelto, had R hip pain, CT on 03/21/2024 showed R iliacus muscle bleed so stopped. Comes for follow up. Feels well, Pain R hip area is improving. [facility] Medical History TGA (transient global amnesia) Hypertension Factor II deficiency Surgical History History of left hip replacement History of repair of rotator cuff History of shoulder surgery H/O sinus surgery History of repair of anterior cruciate ligament of right knee History of repair of anterior cruciate ligament of left knee Hx of tonsillectomy Family History Father Arthritis Hypertension Mother Hypertension Social History household members: spouse Smoking Status: Never smoker alcohol intake: never substance use type: does not use Intake Vital Signs 03/20/24 20:30 03/25/24 14:30 Height 5 ft 11 in 5 ft 11 in Weight: 84.028 kg BMI 25.8 BP 119/81 H Blood Pressure Location Lt brachial Position Sitting Respiration 18 Pulse 61 Pulse Source Monitor Temp 98.7 F Temperature Source Temporal Artery Pulse Oximetry (%) 98 Oxygen Delivery Method room air Intake Is patient in pain?: Yes (right hip) Pain scale (1-10): 4 Allergies cyclobenzaprine HCl (From Flexeril) Allergy (Severe, Verified 03/25/24 14:37) Swelling ketorolac tromethamine (From Toradol) Allergy (Severe, Verified 03/25/24 14:37) Swelling levofloxacin (From Levaquin) Allergy (Severe, Verified 03/25/24 14:37) Anaphylaxis meloxicam Allergy (Severe, Verified 03/25/24 14:37) Swelling orphenadrine citrate (From Norflex) Allergy (Severe, Verified 03/25/24 14:37) Swelling Penicillins Allergy (Severe, Verified 03/25/24 14:37) Rash triamcinolone acetonide (From Kenalog) Allergy (Severe, Verified 03/25/24 14:37) Swelling Medications ???Medication ???Instructions ???Recorded ???Confirmed ???Type omeprazole 40 mg capsule,delayed 1 tab PO DAILY gerd 10/04/13 03/25/24 History release losartan 50 mg tablet 50 mg PO DAILY bp 04/16/15 03/25/24 History metoprolol tartrate 25 mg tablet 25 mg PO DAILY blood pressure 01/24/19 03/25/24 History acetaminophen 500 mg capsule 1,000 mg PO Q8H PRN Pain 10/27/20 03/25/24 History rivaroxaban 10 mg tablet 10 mg PO DAILY #90 tabs 04/07/23 03/25/24 Rx mometasone 50 mcg/actuation nasal 2 spray intranasal DAILY 03/20/24 03/25/24 History spray (Nasonex 24hr Allergy) oxycodone-acetaminophen 5 mg-325 1 tab PO Q6H PRN pain 3 days #12 03/21/24 03/25/24 Rx mg tablet (Percocet) tabs Have you fallen in the past year?: No Central Venous Access Central Venous Access: No Exam Physical Exam Narrative Walking with a slight limp. Const alert, oriented x3 and no apparent distress Coding Level of Care Code Off vis,est,level 3 Exam Problem Focused Diagnoses Muscle hemorrhage M62.89 Prothrombin gene mutation D68.52 Assessment and Plan Assessment and Plan (1) Muscle hemorrhage: Status: Acute Plan: To stay off vigorous exercises. Repeat CT a/p to assess bleeding. (2) Prothrombin gene mutation: Status: Chronic Comment: Off Zarelto 10mg daily because of R iliacus muscle bleed. Clinically stable. Plan: To hold Xarelto Plan Details Follow Up: 2 Weeks Clinical Quality Measures Falls Risk Screening/Assistive Devices Have you fallen in the past year?: No 03/25/24 1520 Date Kaushik Valdez Signature: Date (if applicable) CC: Dr. Kayla Erwin MD Normal [facility] Abdomen/Pelvis without Conto n 03-21-2024 Abdomen/Pelvis without Cont [facility] Services [address] [place] [address] Abdomen/Pelvis without Cont MR#: [id number] Acct: [id number] Name: MALVIN ROBLERO BRANDEN Rep #: [id number] : 1955 M 68 From: Malvin Ragsdale PCP: Dr. Kayla Erwin MD Status: PRE ER Study: Abdomen/Pelvis without Cont Date of Exam: 02/21 06/14 Exam# [id number] Ordering Dr: Israel Michelle DO ADDENDUM by Dr. Malvin Garcia MD on 03/21/24 at 0130 [id number] EXAM: CT ABDOMEN AND PELVIS WITHOUT INTRAVENOUS CONTRAST CLINICAL INDICATION: flank pain TECHNIQUE: Helically acquired images were obtained of the abdomen and pelvis without intravenous contrast. This CT exam was performed using one or more of the following dose reduction techniques: automated exposure control, adjustment of the mA and/or kV according to patient size, and/or use of iterative reconstruction technique. RADIATION DOSE: CTDIvol = 7.97 mGy, DLP = 446.09 mGy-cm COMPARISON: 11/11/2015. FINDINGS: LOWER THORAX: Unremarkable. Lung bases are clear. No cardiomegaly. No significant pericardial effusion. ABDOMEN: LIVER: Unremarkable. Homogeneous. GALLBLADDER AND BILE DUCTS: Unremarkable. No calcified gallstones. No gallbladder distention or wall edema. No intra- or extrahepatic biliary ductal dilation. PANCREAS: Unremarkable. No focal cystic mass. SPLEEN: Unremarkable. Normal size without focal cystic or solid mass. ADRENALS: Unremarkable. No nodules. KIDNEYS AND URETERS: Unremarkable. Normal renal size and position. No hydronephrosis. STOMACH AND BOWEL: Unremarkable. No stomach or bowel distention. No focal inflammatory change. PELVIS: APPENDIX: Normal appendix. BLADDER: Unremarkable. REPRODUCTIVE: Unremarkable as visualized. No mass. ABDOMEN and PELVIS: INTRAPERITONEAL SPACE: Unremarkable. No ascites or other fluid collection. No free air. BONES/JOINTS: Left total hip arthroplasty. Components appear well seated. No suspicious lytic or blastic abnormality. SOFT TISSUES: Dense enlargement of the right iliacus muscle with associated mild dense status stranding in the right retroperitoneum suggesting hemorrhage in the right iliacus muscle and retroperitoneal hemorrhage. No discrete abdominal or pelvic wall hernia. VASCULATURE: Unremarkable. Abdominal aorta is non-dilated. LYMPH NODES: Unremarkable. No enlarged lymph nodes. 03/21/24 0130 Date cc: Dr. Kayla Erwin MD; Israel Michelle DO * Signed ADDENDUM by Dr. Malvin Garcia MD on 03/21/[address]/Abdomen/Pelvis without Cont IMPRESSION: 1. Dense enlargement of the right iliacus muscle with associated mild dense status stranding in the right retroperitoneum suggesting hemorrhage in the right iliacus muscle and retroperitoneal hemorrhage. 2. Left total hip arthroplasty. Components appear well seated. N.B. : The above Results were Read Back by Malvin Garcia MD to Israel Michelle DO, and understanding confirmed on 03/21/2024 01:47:57 (ET). Electronically Signed: Malvin Garcia MD at 1:30 EDT , 03/21/24 0154 Date cc: Dr. Kayla Erwin MD; Israel Michelle DO * Signed We are attempting to reach an attending provider to discuss findings. An addendum with communication details will be sent when the communication is complete. [id number] EXAM: CT ABDOMEN AND PELVIS WITHOUT INTRAVENOUS CONTRAST CLINICAL INDICATION: flank pain TECHNIQUE: Helically acquired images were obtained of the abdomen and pelvis without intravenous contrast. This CT exam was performed using one or more of the following dose reduction techniques: automated exposure control, adjustment of the mA and/or kV according to patient size, and/or use of iterative reconstruction technique. RADIATION DOSE: CTDIvol = 7.97 mGy, DLP = 446.09 mGy-cm COMPARISON: 11/11/2015. FINDINGS: LOWER THORAX: Unremarkable. Lung bases are clear. No cardiomegaly. No significant pericardial effusion. ABDOMEN: LIVER: Unremarkable. Homogeneous. GALLBLADDER AND BILE DUCTS: Unremarkable. No calcified gallstones. No gallbladder distention or wall edema. No intra- or extrahepatic biliary ductal dilation. PANCREAS: Unremarkable. No focal cystic mass. SPLEEN: Unremarkable. Normal size without focal cystic or solid mass. ADRENALS: Unremarkable. No nodules. KIDNEYS AND URETERS: Unremarkable. Normal renal size and position. No hydronephrosis. STOMACH AND BOWEL: Unremarkable. No stomach or bowel distention. No focal inflammatory change. PELVIS: APPENDIX: Normal appendix. BLADDER: Unremarkable. REPRODUCTIVE: Unremarkable as visualized. No mass. ABDOMEN and PELVIS: INTRAPERITONEA (more content not included)... Normal [facility] CBC W/Diff, Automatedon 10-3 -2023 Absolute Lymph 1.60 X10 3/uL Normal 0.83-4.51 [facility] Comment on above: Performed By: #### L 300.3900, L100.0100, L300.4310 #### [facility] [address] [place], [address] Absolute Neut 4.5 X10 3/uL Normal 2.0-7.7 [facility] Comment on above: Performed By: #### L 300.3900, L100.0100, L300.4310 #### [facility] [address] [place], [address] Basophils/100 WBC (Bld) 0.6 % Normal 0-1 [facility] Comment on above: Performed By: #### L 300.3900, L100.0100, L300.4310 #### [facility] [address] [place], [address] Eosinophils/100 WBC (Bld) 2.7 % Normal 0-5 [facility] Comment on above: Performed By: #### L 300.3900, L100.0100, L300.4310 #### [facility] [address] [place], [address] Erythrocyte distribution width (RBC) [Ratio] 13.1 % Normal 11.6-14.6 [facility] Comment on above: Performed By: #### L 300.3900, L100.0100, L300.4310 #### [facility] [address] [place], [address] Hematocrit (Bld) [Volume fraction] 41.8 % Normal 40-54 [facility] Comment on above: Performed By: #### L 300.3900, L100.0100, L300.4310 #### [facility] [address] [place], [address] Hemoglobin (Bld) [Mass/Vol] 14.6 g/dL Normal 13.0-16.5 [facility] Comment on above: Performed By: #### L 300.3900, L100.0100, L300.4310 #### [facility] [address] [place], [address] IG% 0.800 Normal 0.0-0.9 [facility] Comment on above: Result Comment: IG% - Immature Granulocytes (promyelocytes, myelocytes and metamyelocytes) > 1% indicates that a LEFT SHIFT is Present. Performed By: #### L 300.3900, L100.0100, L300.4310 #### [facility] [address] [place], [address] Lymphocytes/100 WBC (Bld) 22.5 % Normal 19-41 [facility] Comment on above: Performed By: #### L 300.3900, L100.0100, L300.4310 #### [facility] [address] [place], [address] MCH (RBC) [Entitic mass] 30.5 pg Normal 27.0-32.0 [facility] Comment on above: Performed By: #### L 300.3900, L100.0100, L300.4310 #### [facility] [address] [place], [address] MCHC (RBC) [Mass/Vol] 34.9 g/dL Normal 32-36 [facility] Comment on above: Performed By: #### L 300.3900, L100.0100, L300.4310 #### [facility] [address] [place], [address] MCV (RBC) [Entitic vol] 87.4 fL Normal 80-94 [facility] Comment on above: Performed By: #### L 300.3900, L100.0100, L300.4310 #### [facility] [address] [place], [address] Monocytes/100 WBC (Bld) 9.8 % Normal 0-10 [facility] Comment on above: Performed By: #### L 300.3900, L100.0100, L300.4310 #### [facility] [address] [place], [address] Neutrophils/100 WBC (Bld) 63.6 % Normal 47-70 [facility] Comment on above: Performed By: #### L 300.3900, L100.0100, L300.4310 #### [facility] [address] [place], [address] Nucleated RBC (Bld) [#/Vol] 0 10*3/uL Normal 0-5 [facility] Comment on above: Performed By: #### L 300.3900, L100.0100, L300.4310 #### [facility] [address] [place], [address] Platelet mean volume (Bld) [Entitic vol] 9.1 fL Normal 6.2-12.0 [facility] Comment on above: Performed By: #### L 300.3900, L100.0100, L300.4310 #### [facility] [address] [place], [address] Platelets (Bld) [#/Vol] 191 10*3/uL Normal 150-450 [facility] Comment on above: Performed By: #### L 300.3900, L100.0100, L300.4310 #### [facility] [address] [place], [address] RBC (Bld) [#/Vol] 4.78 10*6/uL Normal 4.6-6.2 [facility] Comment on above: Performed By: #### L 300.3900, L100.0100, L300.4310 #### [facility] [address] [place], [address] RDW SD 41.7 fl Normal 35.1-43.9 [facility] Comment on above: Performed By: #### L 300.3900, L100.0100, L300.4310 #### [facility] [address] [place], [address] WBC (Bld) [#/Vol] 7.1 10*3/uL Normal 4.4-11.0 [facility] Comment on above: Performed By: #### L 300.3900, L100.0100, L300.4310 #### [facility] [address] [place], [address] D-Dimer Quantitative (DVT/PE )on 03-21-2024 D-DIMER QUANT 0.27 FEU/ug/m Normal 0.27-0.49 [facility] Comment on above: Result Comment: NORM AL D-Dimer level (<0.50) indicates no DVT or PE. Performed By: #### L 300.8000 #### [facility] [address] [place], [address] Emergency Department Summary on 03-21-2024 Emergency Department Summary [facility] Medical Records Department [address] [place] [address] Emergency Department Summary 03/21/24 MR#: [id number] Acct: [id number] Name: MALVIN ROBLERO Rep #: [id number] : 1955 68 From: Israel Michelle DO PCP: Dr. Kayla Erwin MD Status:DEP ER Location: ED HPI History of Present Illness Chief Complaint: Abd Pain Informant: patient and spouse/S.O. 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 He is currently on Xarelto. He states he has not had a blood clot for almost 10 years. He states that there is been no recent trauma or excessive activity but he has noticed pain along the right lower abdomen that does worsen with motion. He states that he felt this could be arthritis and is taken Tylenol without any improvement. He states he feels that the pain has worsened in the last 1 to 2 days. He denies any fevers chills diarrhea dysuria nausea or vomiting but with the worsening pain presents for evaluation [facility] Medical History TGA (transient global amnesia) Hypertension Factor II deficiency Home Medications ???Medication ???Instructions ???Recorded ???Last Taken ???Type omeprazole 40 mg capsule,delayed 1 tab PO DAILY gerd 10/04/13 04/18/18 06:00 History release losartan 50 mg tablet 50 mg PO DAILY bp 04/16/15 10/28/15 History metoprolol tartrate 25 mg tablet 25 mg PO DAILY blood pressure 01/24/19 Unknown History acetaminophen 500 mg capsule 1,000 mg PO Q8H PRN Pain 10/27/20 Unknown History rivaroxaban 10 mg tablet 10 mg PO DAILY #90 tabs 04/07/23 Unknown Rx mometasone 50 mcg/actuation nasal 2 spray intranasal DAILY 03/20/24 Unknown History spray (Nasonex 24hr Allergy) oxycodone-acetaminophen 5 mg-325 1 tab PO Q6H PRN pain 3 days #12 03/21/24 Unknown Rx mg tablet (Percocet) tabs Allergy/AdvReac Type Severity Reaction Status Date / Time cyclobenzaprine HCl (From Allergy Severe Swelling Verified 03/20/24 20:28 Flexeril) ketorolac tromethamine (From Allergy Severe Swelling Verified 03/20/24 20:28 Toradol) levofloxacin (From Levaquin) Allergy Severe Anaphylaxis Verified 03/20/24 20:28 meloxicam Allergy Severe Swelling Verified 03/20/24 20:28 orphenadrine citrate (From Allergy Severe Swelling Verified 03/20/24 20:28 Norflex) Penicillins Allergy Severe Rash Verified 03/20/24 20:28 triamcinolone acetonide Allergy Severe Swelling Verified 03/20/24 20:28 (From Kenalog) Family History Father Arthritis Hypertension Mother Hypertension Surgical History H/O sinus surgery History of left hip replacement History of repair of anterior cruciate ligament of left knee History of repair of anterior cruciate ligament of right knee History of repair of rotator cuff History of shoulder surgery Hx of tonsillectomy Social History household members: spouse Smoking Status: Never smoker alcohol intake: never substance use type: does not use ROS ROS ED Constitutional Constitutional ED: Denies chills or fever(s) Eyes Eyes: Denies blurry vision or change in vision ENT ENT ED: Denies sore throat Cardiovascular Cardiovascular: Denies chest pain Respiratory/Chest Respiratory/Chest: Denies cough or dyspnea Gastrointestinal Gastrointestinal: Reports abdominal pain; Denies diarrhea, melena, nausea or vomiting Genitourinary Genitourinary ED: Denies dysuria or hematuria Musculoskeletal Musculoskeletal: Reports back pain and other Details: Positive right hip pain Integumentary Denies Abrasions or rash Neurologic Neurologic: Denies headache(s) Hematologic/Lymphatic Hematologic/Lymphatic: Reports easy bleeding and easy bruising EXAM Physical Exam Const Vital Signs: 03/20/24 20:30 03/20/24 23:29 03/21/24 01:00 Temperature 96.2 F L Temperature Source Temporal Pulse Rate 58 L 48 L 55 L Respiratory Rate 16 16 16 Blood Pressure 130/83 H 141/88 H 122/85 H Blood Pressure Mean 98 105 97 Pulse Ox 98 98 98 Oxygen Delivery Method Room Air Room Air Room Air 03/21/24 03:13 Temperature 98 F Temperature Source Pulse Rate 57 L Respiratory Rate 18 Blood Pressure 124/76 H Blood Pressure Mean 92 Pulse Ox 98 Oxygen Delivery Method Positive well nourished and well developed General Appearance ED: well developed; Negative for pallor HEENT HEENT Narrative: Normocephalic atraumatic Eyes PERRL and EOMs intact bilaterally General Eye ED: Negative for scleral icterus Neck supple Neck Narrative: No nuchal rigidity or meni (more content not included)... Normal [facility] Partial Thromboplast Timeon 03-21-2024 aPTT Coag (Bld) [Time] 27.3 s Normal 24.1-36.2 [facility] Comment on above: Performed By: #### L 300.3900, L100.0100, L300.4310 #### [facility] [address] [place], [address] Prothrombin Time w/INRon INR Coag (PPP) [Relative time] 1.2 {INR} Normal [facility] Comment on above: Performed By: #### L 300.3900, L100.0100, L300.4310 #### [facility] [address] [place], [address] PT Coag (PPP) [Time] 14.7 s Normal 11.7-14.9 [facility] Comment on above: Performed By: #### L 300.3900, L100.0100, L300.4310 #### [facility] [address] [place], [address] CBC W/Diff, Automatedon 02-21 Absolute Lymph 1.41 X10 3/uL Normal 0.83-4.51 [facility] Comment on above: Performed By: #### L 100.0100, L500.4050 ####[facility] [address] [place], [address] Absolute Neut 4.5 X10 3/uL Normal 2.0-7.7 [facility] Comment on above: Performed By: #### L 100.0100, L500.4050 ####[facility] [address] [place], [address] Basophils/100 WBC (Bld) 0.6 % Normal 0-1 [facility] Comment on above: Performed By: #### L 100.0100, L500.4050 ####[facility] [address] [place], [address] Eosinophils/100 WBC (Bld) 2.8 % Normal 0-5 [facility] Comment on above: Performed By: #### L 100.0100, L500.4050 ####[facility] [address] [place], [address] Erythrocyte distribution width (RBC) [Ratio] 13.2 % Normal 11.6-14.6 [facility] Comment on above: Performed By: #### L 100.0100, L500.4050 ####[facility] [address] [place], [address] Hematocrit (Bld) [Volume fraction] 44.8 % Normal 40-54 [facility] Comment on above: Performed By: #### L 100.0100, L500.4050 ####[facility] [address] [place], [address] Hemoglobin (Bld) [Mass/Vol] 15.7 g/dL Normal 13.0-16.5 [facility] Comment on above: Performed By: #### L 100.0100, L500.4050 ####[facility] [address] [place], [address] IG% 0.700 Normal 0.0-0.9 [facility] Comment on above: Result Comment: IG% - Immature Granulocytes (promyelocytes, myelocytes and metamyelocytes) > 1% indicates that a LEFT SHIFT is Present. Performed By: #### L 100.0100, L500.4050 ####[facility] [address] [place], [address] Lymphocytes/100 WBC (Bld) 20.7 % Normal 19-41 [facility] Comment on above: Performed By: #### L 100.0100, L500.4050 ####[facility] [address] [place], [address] MCH (RBC) [Entitic mass] 30.7 pg Normal 27.0-32.0 [facility] Comment on above: Performed By: #### L 100.0100, L500.4050 ####[facility] [address] [place], [address] MCHC (RBC) [Mass/Vol] 35.0 g/dL Normal 32-36 [facility] Comment on above: Performed By: #### L 100.0100, L500.4050 ####[facility] [address] [place], [address] MCV (RBC) [Entitic vol] 87.7 fL Normal 80-94 [facility] Comment on above: Performed By: #### L 100.0100, L500.4050 ####[facility] [address] [place], [address] Monocytes/100 WBC (Bld) 9.1 % Normal 0-10 [facility] Comment on above: Performed By: #### L 100.0100, L500.4050 ####[facility] [address] [place], [address] Neutrophils/100 WBC (Bld) 66.1 % Normal 47-70 [facility] Comment on above: Performed By: #### L 100.0100, L500.4050 ####[facility] [address] [place], [address] Nucleated RBC (Bld) [#/Vol] 0 10*3/uL Normal 0-5 [facility] Comment on above: Performed By: #### L 100.0100, L500.4050 ####[facility] [address] [place], [address] Platelet mean volume (Bld) [Entitic vol] 9.1 fL Normal 6.2-12.0 [facility] Comment on above: Performed By: #### L 100.0100, L500.4050 ####[facility] [address] [place], [address] Platelets (Bld) [#/Vol] 211 10*3/uL Normal 150-450 [facility] Comment on above: Performed By: #### L 100.0100, L500.4050 ####[facility] [address] [place], [address] RBC (Bld) [#/Vol] 5.11 10*6/uL Normal 4.6-6.2 [facility] Comment on above: Performed By: #### L 100.0100, L500.4050 ####[facility] [address] [place], [address] RDW SD 42.1 fl Normal 35.1-43.9 [facility] Comment on above: Performed By: #### L 100.0100, L500.4050 ####[facility] [address] [place], [address] WBC (Bld) [#/Vol] 6.8 10*3/uL Normal 4.4-11.0 [facility] Comment on above: Performed By: #### L 100.0100, L500.4050 ####[facility] [address] [place], [address] Comprehensive Metabolic Prof ilon 03-20-2024 Albumin [Mass/Vol] 3.7 g/dL Normal 3.2-5.0 [facility] Comment on above: Performed By: #### L 100.0100, L500.4050 ####[facility] [address] [place], [address] Albumin/Globulin [Mass ratio] 1.1 {ratio} Normal 0.9-2.4 [facility] Comment on above: Performed By: #### L 100.0100, L500.4050 ####[facility] [address] [place], [address] ALK P 76 U/L Normal 45-117 [facility] Comment on above: Performed By: #### L 100.0100, L500.4050 ####[facility] [address] [place], [address] ALT [Catalytic activity/Vol] 27 U/L Normal 16-61 [facility] Comment on above: Performed By: #### L 100.0100, L500.4050 ####[facility] [address] [place], [address] AST [Catalytic activity/Vol] 24 U/L Normal 15-37 [facility] Comment on above: Performed By: #### L 100.0100, L500.4050 ####[facility] [address] [place], [address] Bilirubin [Mass/Vol] 0.70 mg/dL Normal 0.20-1.00 [facility] Comment on above: Result Comment: For patients on eltrombopag therapy, use of Dimension Sibley TBIL is not recommended. Performed By: #### L 100.0100, L500.4050 ####[facility] [address] [place], [address] BUN/CRE 21.2 RATIO High 10-20 [facility] Comment on above: Performed By: #### L 100.0100, L500.4050 ####[facility] [address] [place], [address] CA,Total 8.9 mg/dL Normal 8.5-10.1 [facility] Comment on above: Performed By: #### L 100.0100, L500.4050 ####[facility] [address] [place], [address] Chloride [Moles/Vol] 109 mmol/L High 98-107 [facility] Comment on above: Performed By: #### L 100.0100, L500.4050 ####[facility] [address] [place], [address] CO2 [Moles/Vol] 27.0 mmol/L Normal 21.0-32.0 [facility] Comment on above: Performed By: #### L 100.0100, L500.4050 ####[facility] [address] [place], [address] Creatinine [Mass/Vol] 1.13 mg/dL Normal 0.70-1.30 [facility] Comment on above: Result Comment: The validity of the calculated GFR GFRAA in patients over 70 years has not been determined. Clinical correlation is essential. Performed By: #### L 100.0100, L500.4050 ####[facility] [address] [place], [address] ECRCL 65.71 ml/min Normal [facility] Comment on above: Performed By: #### L 100.0100, L500.4050 ####[facility] [address] [place], [address] EST GFR - AA 83 mL/min Normal >60 [facility] Comment on above: Result Comment: Afri can Czech GFR Calc Performed By: #### L 100.0100, L500.4050 ####[facility] [address] [place], [address] GAP 2 Low 5-15 [facility] Comment on above: Performed By: #### L 100.0100, L500.4050 ####[facility] [address] [place], [address] GFR/1.73 sq M.predicted among non-blacks MDRD (S/P/Bld) [Vol rate/Area] 68 mL/min/{1.73_m2} Normal >60 [facility] Comment on above: Result Comment: Non- GFR Calc Performed By: #### L 100.0100, L500.4050 ####[facility] [address] [place], [address] Globulin (S) [Mass/Vol] 3.3 g/dL Normal 2.2-4.2 [facility] Comment on above: Performed By: #### L 100.0100, L500.4050 ####[facility] [address] [place], [address] Glucose [Mass/Vol] 124 mg/dL High 74-106 [facility] Comment on above: Result Comment: Fast ing Glucose result from 100 to 125 mg/dL suggests IMPAIRED HOMEOSTASIS per A.D.A. criteria. Performed By: #### L 100.0100, L500.4050 ####[facility] [address] [place], [address] Potassium [Moles/Vol] 4.0 mmol/L Normal 3.5-5.1 [facility] Comment on above: Performed By: #### L 100.0100, L500.4050 ####[facility] [address] [place], [address] Sodium [Moles/Vol] 138 mmol/L Normal 136-145 [facility] Comment on above: Performed By: #### L 100.0100, L500.4050 ####[facility] [address] [place], [address] T PROT 7.0 g/dL Normal 6.4-8.2 [facility] Comment on above: Performed By: #### L 100.0100, L500.4050 ####[facility] [address] [place], [address] Urea nitrogen [Mass/Vol] 24 mg/dL High 7-18 [facility] Comment on above: Performed By: #### L 100.0100, L500.4050 ####[facility] [address] [place], [address] Urinalysis, Completeon 03-20 BACTERIA RARE Normal None Seen [facility] Comment on above: Order Comment: CLEAN CATCH Performed By: #### L 400.0001 #### [facility] [address] [place], [address] RBC 0-5 SEEN Normal 0-5 [facility] Comment on above: Order Comment: CLEAN CATCH Performed By: #### L 400.0001 #### [facility] [address] [place], [address] WBC 0-5 SEEN Normal 0-5 [facility] Comment on above: Order Comment: CLEAN CATCH Performed By: #### L 400.0001 #### [facility] [address] [place], [address] EPI,SQUAMOUS 0 SEEN Normal 0-5 [facility] Comment on above: Order Comment: CLEAN CATCH Performed By: #### L 400.0001 #### [facility] [address] [place], [address] Mucus Ql (Urine sed) 0 SEEN Normal [facility] Comment on above: Order Comment: CLEAN CATCH Performed By: #### L 400.0001 #### [facility] [address] [place], [address] No Panel Informationon 02-20 IMPRESSION: Leg length [...] IMPRESSION IMPRESSION: Leg length measurements as above. [facility] Radiology Study observation (narrative) [facility] No Panel InformationOrdered By: Shad Frank on 02-21-2024 [facility] Work Phone: XR BONE LENGTH STUDYon 02-20 [...] IMPRESSION: Leg length measurements as above. Normal [facility] Stress Reporton 02-20-2024 Stress Report [facility] [address] [place] [address] MR#: [id number] Acct: [id number] Name: MALVIN ROBLERO BRANDEN Rep #: [id number] : [id number] 68 From: Rohan Ballesteros MD Primary Care: Dr. Kayla Erwin MD Status: REG CLI Referring Dr: Kayla Erwin MD Sex: M C Stress Test Report Date: 02/20/2024 Procedure: Exercise tolerance test Indications: Dyspnea Consent: Per the patient Procedure: The patient exercised on a Timothy protocol for 12 minutes achieving a peak heart rate of 141 bpm (93% predicted maximal heart rate) with a peak blood pressure 160/64 mmHg and a peak MET capacity of approximately 13.4 MET's. The baseline ECG demonstrated normal sinus rhythm. The peak exercise ECG demonstrated no significant ischemic changes. [There were no cardiac dysrhythmias pretest, during exercise, or recovery]. The functional capacity was considered excellent for age. The patient had no complaint of chest discomfort during exercise or recovery. The examination was discontinued secondary to achieving target heart rate. Impression: 1. Technically adequate (percent predicted maximal heart rate greater than 85%) exercise tolerance test 2. Stress test is negative for exercise-induced chest pain. 3. Stress test test is negative for exercise-induced EKG changes of ischemia. 4. Functional capacity is excellent for age This note was generated with Dragon dictation software. It may contain incorrect words, spelling, and punctuation that were not noted in checking the note before signing. 02/20/241432 Date Rohan Ballesteros MD CC: Dr. Kayla Erwin MD Date Dictated: 02/20/241429 Date Transcribed: 02/20/241429 Incident Response Coordinator: BOB Signed Normal [facility] XR KNEE LEFT 3+ VIEWS W/ THIERNO ATERAL STANDING 1 VIEWon 01-25-2024 XR KNEE [...] have reviewed and approved this report. Normal [facility] XR Knee - bilateral Views W standingon [...] this report. OLOGY EXAM: XR KNEE LEFT 3 + VIEWS W/ BILATERAL STANDING 1 VIEW, 01/25/2024 [...] I have reviewed and approved this report. [facility] Radiology Study observation (narrative) [facility] XR Knee - bilateral Views W standingOrdered By: Jhonny Haji on 01-25-2024 [facility] Work Phone: CBC W/Diff, Automatedon 12-21 Absolute Lymph 1.28 X10 3/uL Normal 0.83-4.51 [facility] Comment on above: Order Comment: Order Date: 01/12/24Order Info: 0184-1 - CBCD Performed By: #### L 501.9985, L501.9520, L100.0100, L500.4050 ####[facility] [address] [place], [address] Absolute Neut 4.0 X10 3/uL Normal 2.0-7.7 [facility] Comment on above: Order Comment: Order Date: 01/12/24Order Info: 0184-1 - CBCD Performed By: #### L 501.9985, L501.9520, L100.0100, L500.4050 ####[facility] [address] [place], [address] Basophils/100 WBC (Bld) 0.8 % Normal 0-1 [facility] Comment on above: Order Comment: Order Date: 01/12/24Order Info: 0184-1 - CBCD Performed By: #### L 501.9985, L501.9520, L100.0100, L500.4050 ####[facility] [address] [place], [address] Eosinophils/100 WBC (Bld) 1.5 % Normal 0-5 [facility] Comment on above: Order Comment: Order Date: 01/12/24Order Info: 018-1 - CBCD Performed By: #### L 501.9985, L501.9520, L100.0100, L500.4050 ####[facility] [address] [place], [address] Erythrocyte distribution width (RBC) [Ratio] 12.8 % Normal 11.6-14.6 [facility] Comment on above: Order Comment: Order Date: 01/12/24Order Info: 018- - CBCD Performed By: #### L 501.9985, L501.9520, L100.0100, L500.4050 ####[facility] [address] [place], [address] Hematocrit (Bld) [Volume fraction] 47.5 % Normal 40-54 [facility] Comment on above: Order Comment: Order Date: 01/12/24Order Info: 018-1 - CBCD Performed By: #### L 501.9985, L501.9520, L100.0100, L500.4050 ####[facility] [address] [place], [address] Hemoglobin (Bld) [Mass/Vol] 15.9 g/dL Normal 13.0-16.5 [facility] Comment on above: Order Comment: Order Date: 01/12/24Order Info: 0184-1 - CBCD Performed By: #### L 501.9985, L501.9520, L100.0100, L500.4050 ####[facility] [address] [place], [address] IG% 1.000 High 0.0-0.9 [facility] Comment on above: Order Comment: Order Date: 01/12/24Order Info: 0184-1 - CBCD Result Comment: IG% - Immature Granulocytes (promyelocytes, myelocytes and metamyelocytes) > 1% indicates that a LEFT SHIFT is Present. Performed By: #### L 501.9985, L501.9520, L100.0100, L500.4050 ####[facility] [address] [place], [address] Lymphocytes/100 WBC (Bld) 20.8 % Normal 19-41 [facility] Comment on above: Order Comment: Order Date: 01/12/24Order Info: 4-1 - CBCD Performed By: #### L 501.9985, L501.9520, L100.0100, L500.4050 ####[facility] [address] [place], [address] MCH (RBC) [Entitic mass] 29.9 pg Normal 27.0-32.0 [facility] Comment on above: Order Comment: Order Date: 01/12/24Order Info: 183- - CBCD Performed By: #### L 501.9985, L501.9520, L100.0100, L500.4050 ####[facility] [address] [place], [address] MCHC (RBC) [Mass/Vol] 33.5 g/dL Normal 32-36 [facility] Comment on above: Order Comment: Order Date: 01/12/24Order Info: 0184-1 - CBCD Performed By: #### L 501.9985, L501.9520, L100.0100, L500.4050 ####[facility] [address] [place], [address] MCV (RBC) [Entitic vol] 89.5 fL Normal 80-94 [facility] Comment on above: Order Comment: Order Date: 01/12/24Order Info: 0184-1 - CBCD Performed By: #### L 501.9985, L501.9520, L100.0100, L500.4050 ####[facility] [address] [place], [address] Monocytes/100 WBC (Bld) 10.4 % High 0-10 [facility] Comment on above: Order Comment: Order Date: 01/12/24Order Info: 0184-1 - CBCD Performed By: #### L 501.9985, L501.9520, L100.0100, L500.4050 ####[facility] [address] [place], [address] Neutrophils/100 WBC (Bld) 65.5 % Normal 47-70 [facility] Comment on above: Order Comment: Order Date: 01/12/24Order Info: 0184-1 - CBCD Performed By: #### L 501.9985, L501.9520, L100.0100, L500.4050 ####[facility] [address] [place], [address] Nucleated RBC (Bld) [#/Vol] 0 10*3/uL Normal 0-5 [facility] Comment on above: Order Comment: Order Date: 01/12/24Order Info: 0184-1 - CBCD Performed By: #### L 501.9985, L501.9520, L100.0100, L500.4050 ####[facility] [address] [place], [address] Platelet mean volume (Bld) [Entitic vol] 9.7 fL Normal 6.2-12.0 [facility] Comment on above: Order Comment: Order Date: 01/12/24Order Info: 0184-1 - CBCD Performed By: #### L 501.9985, L501.9520, L100.0100, L500.4050 ####[facility] [address] [place], [address] Platelets (Bld) [#/Vol] 187 10*3/uL Normal 150-450 [facility] Comment on above: Order Comment: Order Date: 01/12/24Order Info: 0184-1 - CBCD Performed By: #### L 501.9985, L501.9520, L100.0100, L500.4050 ####[facility] [address] [place], [address] RBC (Bld) [#/Vol] 5.31 10*6/uL Normal 4.6-6.2 [facility] Comment on above: Order Comment: Order Date: 01/12/24Order Info: 018- - CBCD Performed By: #### L 501.9985, L501.9520, L100.0100, L500.4050 ####[facility] [address] [place], [address] RDW SD 41.8 fl Normal 35.1-43.9 [facility] Comment on above: Order Comment: Order Date: 01/12/24Order Info: 018- - CBCD Performed By: #### L 501.9985, L501.9520, L100.0100, L500.4050 ####[facility] [address] [place], [address] WBC (Bld) [#/Vol] 6.2 10*3/uL Normal 4.4-11.0 [facility] Comment on above: Order Comment: Order Date: 01/12/24Order Info: 018- - CBCD Performed By: #### L 501.9985, L501.9520, L100.0100, L500.4050 ####[facility] [address] [place], [address] Comprehensive Metabolic Prof alon 01-12-2024 Albumin [Mass/Vol] 3.6 g/dL Normal 3.2-5.0 [facility] Comment on above: Order Comment: Order Date: 01/12/24Order Info: 0786-1 - CMPOrder Info: 3016-3 - TSH Performed By: #### L 501.9985, L501.9520, L100.0100, L500.4050 ####[facility] [address] [place], [address] Albumin/Globulin [Mass ratio] 1.1 {ratio} Normal 0.9-2.4 [facility] Comment on above: Order Comment: Order Date: 01/12/24Order Info: 0786-1 - CMPOrder Info: 301-3 - TSH Performed By: #### L 501.9985, L501.9520, L100.0100, L500.4050 ####[facility] [address] [place], [address] ALK P 72 U/L Normal 45-117 [facility] Comment on above: Order Comment: Order Date: 01/12/24Order Info: 07 - CMPOrder Info: 3015-3 - TSH Performed By: #### L 501.9985, L501.9520, L100.0100, L500.4050 ####[facility] [address] [place], [address] ALT [Catalytic activity/Vol] 21 U/L Normal 16-61 [facility] Comment on above: Order Comment: Order Date: 01/12/24Order Info: 0786- - CMPOrder Info: 3015-3 - TSH Performed By: #### L 501.9985, L501.9520, L100.0100, L500.4050 ####[facility] [address] [place], [address] AST [Catalytic activity/Vol] 22 U/L Normal 15-37 [facility] Comment on above: Order Comment: Order Date: 01/12/24Order Info: 0786- - CMPOrder Info: 3015-3 - TSH Performed By: #### L 501.9985, L501.9520, L100.0100, L500.4050 ####[facility] [address] [place], [address] Bilirubin [Mass/Vol] 1.30 mg/dL High 0.20-1.00 [facility] Comment on above: Order Comment: Order Date: 01/12/24Order Info: 0786-1 - CMPOrder Info: 301-3 - TSH Result Comment: For patients on eltrombopag therapy, use of Dimension Sibley TBIL is not recommended. Performed By: #### L 501.9985, L501.9520, L100.0100, L500.4050 ####[facility] [address] [place], [address] BUN/CRE 18.8 RATIO Normal 10-20 [facility] Comment on above: Order Comment: Order Date: 01/12/24Order Info: 0786-1 - CMPOrder Info: 3015-3 - TSH Performed By: #### L 501.9985, L501.9520, L100.0100, L500.4050 ####[facility] [address] [place], [address] CA,Total 8.6 mg/dL Normal 8.5-10.1 [facility] Comment on above: Order Comment: Order Date: 01/12/24Order Info: 0786-1 - CMPOrder Info: 3015-3 - TSH Performed By: #### L 501.9985, L501.9520, L100.0100, L500.4050 ####[facility] [address] [place], [address] Chloride [Moles/Vol] 107 mmol/L Normal 98-107 [facility] Comment on above: Order Comment: Order Date: 01/12/24Order Info: 0786-1 - CMPOrder Info: 301-3 - TSH Performed By: #### L 501.9985, L501.9520, L100.0100, L500.4050 ####[facility] [address] [place], [address] CO2 [Moles/Vol] 26.0 mmol/L Normal 21.0-32.0 [facility] Comment on above: Order Comment: Order Date: 01/12/24Order Info: 0786-1 - CMPOrder Info: 3 - TSH Performed By: #### L 501.9985, L501.9520, L100.0100, L500.4050 ####[facility] [address] [place], [address] Creatinine [Mass/Vol] 1.12 mg/dL Normal 0.70-1.30 [facility] Comment on above: Order Comment: Order Date: 01/12/24Order Info: 0786-1 - CMPOrder Info: 6-3 - TSH Result Comment: The validity of the calculated GFR GFRAA in patients over 70 years has not been determined. Clinical correlation is essential. Performed By: #### L 501.9985, L501.9520, L100.0100, L500.4050 ####[facility] [address] [place], [address] EST GFR - AA 84 mL/min Normal >60 [facility] Comment on above: Order Comment: Order Date: 01/12/24Order Info: 0786-1 - CMPOrder Info: 3015-3 - TSH Result Comment: Afri can Czech GFR Calc Performed By: #### L 501.9985, L501.9520, L100.0100, L500.4050 ####[facility] [address] [place], [address] GAP 6 Normal 5-15 [facility] Comment on above: Order Comment: Order Date: 01/12/24Order Info: 0786-1 - CMPOrder Info: 3015-3 - TSH Performed By: #### L 501.9985, L501.9520, L100.0100, L500.4050 ####[facility] [address] [place], [address] GFR/1.73 sq M.predicted among non-blacks MDRD (S/P/Bld) [Vol rate/Area] 69 mL/min/{1.73_m2} Normal >60 [facility] Comment on above: Order Comment: Order Date: 01/12/24Order Info: 785- - CMPOrder Info: 3016-3 - TSH Result Comment: Non- GFR Calc Performed By: #### L 501.9985, L501.9520, L100.0100, L500.4050 ####[facility] [address] [place], [address] Globulin (S) [Mass/Vol] 3.2 g/dL Normal 2.2-4.2 [facility] Comment on above: Order Comment: Order Date: 01/12/24Order Info: 0786- - CMPOrder Info: 3015-3 - TSH Performed By: #### L 501.9985, L501.9520, L100.0100, L500.4050 ####[facility] [address] [place], [address] Glucose [Mass/Vol] 89 mg/dL Normal 74-106 [facility] Comment on above: Order Comment: Order Date: 01/12/24Order Info: [id number] - CMPOrder Info: [id number] - TSH Performed By: #### L 501.9985, [id number], L100.0100, L500.4050 ####[facility] [address] [place], [address] Potassium [Moles/Vol] 4.6 mmol/L Normal 3.5-5.1 [facility] Comment on above: Order Comment: Order Date: 01/12/24Order Info: [id number] - CMPOrder Info: [id number] - TSH Performed By: #### L 501.9985, [id number], L100.0100, L500.4050 ####[facility] [address] [place], [address] Sodium [Moles/Vol] 139 mmol/L Normal 136-145 [facility] Comment on above: Order Comment: Order Date: 01/12/24Order Info: [id number] - CMPOrder Info: [id number] - TSH Performed By: #### L 501.9985, [id number], L100.0100, L500.4050 ####[facility] [id number] [place], [address] T PROT 6.8 g/dL Normal 6.4-8.2 [facility] Comment on above: Order Comment: Order Date: 01/12/24Order Info: [id number] - CMPOrder Info: [id number] - TSH Performed By: #### L [id number], [id number], L100.0100, L500.4050 ####[facility] [address] [place], [address] Urea nitrogen [Mass/Vol] 21 mg/dL High 7-18 [facility] Comment on above: Order Comment: Order Date: 01/12/24Order Info: [id number] - CMPOrder Info: [id number] - TSH Performed By: #### L 501.9985, [id number], L100.0100, L500.4050 ####[facility] [address] [place], [address] Hemoglobin A1con 01-12-2024 HbA1c (Bld) [Mass fraction] 5.0 % Normal 3.8-5.6 [facility] Comment on above: Order Comment: Order Date: 01/12/24Order Info: [id number] - A1C Result Comment: Norm al < 5.7 % Prediabetic 5.7 - 6.4 % Diabetic >or= 6.5 % Please note range changes. Performed By: #### L 501.9985, [id number], L100.0100, L500.4050 ####[facility] [address] [place], [address] Thyroid Stim Hormone (TSH)on 01-12-2024 TSH 1.790 uIU/mL Normal 0.358-3.74 0 [facility] Comment on above: Order Comment: Order Date: 01/12/24Order Info: [id number] - CMPOrder Info: [id number] - TSH Performed By: #### L [id number], [id number], L100.0100, L500.4050 ####[facility] [address] [place], [address] No Panel InformationOrdered By: Kayla Erwin on 09-13-2023 Prostate Specific Antigen Screen 2.84 ng/mL 0.00-4.00 [facility] Comment on above: This test was perfor med using the TPSA assay method for the[employer] chemistry system. Values obtained with differentassay methods cannot be used interchangably.When changing PSA assays in the course of monitoring apatient, additional sequential testing should be carriedout to confirm baseline values. Throat Streptococcus pyogene s antigen detection by immunofluorescenceOrdered By: Harshad Gaines on 03-24-2023 S. pyogenes Ag IF Ql (Throat) [facility] Basophil percentageOrdered B y: Salinas Ford on 03-21-2023 Bilirubin [Mass/Vol] 0.60 mg/dL 0.20-1.00 [facility] Comment on above: For patients on eltr ombopag therapy, use of Dimension S[place]y TBIL is not recommended. Chloride [Moles/Vol] 109 mmol/L 98-107 [facility] Cholesterol [Mass/Vol] 157 mg/dL <200 [facility] Comment on above: <200 mg/dL Desirable 200-240 mg/dL Borderline >240 mg/dL High Risk Glucose [Mass/Vol] 100 mg/dL 74-106 [facility] Comment on above: Fasting Glucose resu lt from 100 to 125 mg/dL suggests IMPAIRED HOMEOSTASIS per A.D.A. criteria. Potassium [Moles/Vol] 4.0 mmol/L 3.5-5.1 [facility] Protein [Mass/Vol] 6.8 g/dL 6.4-8.2 [facility] Sodium [Moles/Vol] 140 mmol/L 136-145 [facility] Triglyceride [Mass/Vol] 118 mg/dL <199 [facility] Comment on above: The drugs N-Acetylcy steine and Metamizole may falsely depress this assay.Serum Triglycerides Reference Interval Normal <150 mg/dL Borderline high 150 - 199 mg/dL High 200 - 499 mg/dL Very High > or = 500 mg/dL Laboratory - Chemistry and C hemistry - challengeOrdered By: Salinas Ford on 03-21-2023 ALP [Catalytic activity/Vol] 68 U/L 45-117 [facility] ALT [Catalytic activity/Vol] 21 U/L 16-61 [facility] CO2 [Moles/Vol] 30.0 mmol/L 21.0-32.0 [facility] Globulin (S) [Mass/Vol] 3.2 g/dL 2.2-4.2 [facility] Urea nitrogen/Creatinine [Mass ratio] 16.1 mg/mg 10-20 [facility] No Panel InformationOrdered By: Salinas Ford on 03-21-2023 Estimated GFR (MDRD) Amer 84 mL/min >60 [facility] Comment on above: GFR Calc Estimated GFR (MDRD) Non-Af Amer 69 mL/min >60 [facility] Comment on above: Non- GFR Calc Serum or plasma albumin ida urement (mass/volume)Ordered By: Salinas Ford on 03-21-2023 Albumin [Mass/Vol] 3.6 g/dL 3.2-5.0 [facility] Serum or plasma albumin/glob ulin mass ratioOrdered By: Salinas Ford on 03-21-2023 Albumin/Globulin [Mass ratio] 1.1 {ratio} 0.9-2.4 [facility] Serum or plasma calcium ida urement (mass/volume)Ordered By: Salinas Ford on 03-21-2023 Calcium [Mass/Vol] 8.5 mg/dL 8.5-10.1 [facility] Serum or plasma cholesterol in HDL measurement (mass/volume)Ordered By: Salinas Ford on 03-21-2023 Cholesterol in HDL [Mass/Vol] 54 mg/dL >40 [facility] Comment on above: The drugs N-Acetylcy steine and Metamizole may falsely depress this assay. Reference Range HDL <40 mg/dL Low HDL Cholesterol HDL >or= 60 mg/dL High HDL Cholesterol Serum or plasma cholesterol in VLDL measurement (mass/volume)Ordered By: Salinas Ford on 03-21-2023 Cholesterol in VLDL [Mass/Vol] 24 mg/dL 5-40 [facility] Serum or plasma creatinine m easurement (mass/volume)Ordered By: Salinas Ford on 03-21-2023 Creatinine [Mass/Vol] 1.12 mg/dL 0.70-1.30 [facility] Comment on above: The validity of the calculated GFR & GFRAA in patients over 70 years has not been determined. Clinical correlation is essential. Serum or plasma low density lipoprotein (LDL) cholesterol measurement (mass/volume)Ordered By: Salinas Ford on 03-21-2023 Cholesterol in LDL [Mass/Vol] 79 mg/dL 0-130 [facility] Serum or plasma urea nitroge n measurement (mass/volume)Ordered By: Salinas Ford on 03-21-2023 Urea nitrogen [Mass/Vol] 18 mg/dL 7-18 [facility] Thin prep Papanicolaou smear with manual screeningOrdered By: Salinas Ford on 03-21-2023 Thin prep Papanicolaou smear with manual screening 24 U/L 15-37 [facility] Thin prep Papanicolaou smear with manual screening 1 5-15 [facility] LARGE JOINT/BURSA INJECTION AND/OR ASPIRATION: L [...] in the day and if needed use [id number]-pac-amjpreu anti-inflammatories for any mild swelling or discomfort.The [...] fashion. The patient was prepped with Betadine. [facility] Radiology Study observation (narrative) [facility] No Panel Informationon 02-23 VARGHESE Sanchez 02/23/2023 11:14 AM LARGE JOINT/BURSA INJECTION AND/OR [...] in the day and if needed use [id number]-zyx-pzyhwhx anti-inflammatories for any mild swelling or discomfort.The [...] fashion. The patient was prepped with Betadine. [facility] Radiology Study observation (narrative) [facility] LARGE JOINT/BURSA INJECTION AND/OR ASPIRATION: L kneeon [...] in the day and if needed use uflt-ncn-gafjlva anti-inflammatories for any mild swelling or discomfort.The [...] fashion. The patient was prepped with Betadine. 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 Multiple intra-articular bodies. OLOGY EXAM: XR KNEE LEFT W ITH BILATERAL STANDING 4 VIEWS, 01/05/2023 13:57 PM [...] lateral compartment with progression. Multiple intra-articular bodies. [facility] Radiology Study observation (narrative) [facility] XR Knee - bilateral Views W standingOrdered By: Kaushik Stevens on 01-05-2023 [facility] Work Phone: Basophil percentageon 2021 Chloride [Moles/Vol] 107 mmol/L 98-[address] [facility] Work Phone: Cholesterol [Mass/Vol] 164 mg/dL <200 [address] [facility] Work Phone: Comment on above: <200 mg/dL Desirable 200-240 mg/dL Borderline >240 mg/dL High Risk Glucose [Mass/Vol] 106 mg/dL 74-106 [facility] Work Phone: Comment on above: Fasting Glucose resu lt from 100 to 125 mg/dL suggests IMPAIRED HOMEOSTASIS per A.D.A. criteria. Potassium [Moles/Vol] 4.2 mmol/L 3.5-5.1 [facility] Work Phone: Sodium [Moles/Vol] 140 mmol/L 136-145 [facility] Work Phone: Triglyceride [Mass/Vol] 81 mg/dL <199 [facility] Work Phone: Comment on above: The drugs N-Acetylcy steine and Metamizole may falsely depress this assay.Serum Triglycerides Reference Interval Normal <150 mg/dL Borderline high 150 - 199 mg/dL High 200 - 499 mg/dL Very High > or = 500 mg/dL Laboratory - Chemistry and C hemistry - challengeon 03-16-2022 CO2 [Moles/Vol] 31.0 mmol/L 21.0-32.0 [facility] Work Phone: Urea nitrogen/Creatinine [Mass ratio] 18.5 mg/mg 10-20 [facility] Work Phone: No Panel Informationon 03-16 Estimated GFR (MDRD) Amer 88 mL/min >60 [facility] Work Phone: Comment on above: GFR Calc Estimated GFR (MDRD) Non-Af Amer 72 mL/min >60 [facility] Work Phone: Comment on above: Non- GFR Calc Prostate Specific Antigen Screen 2.41 ng/mL 0.00-4.00 [facility] Work Phone: Comment on above: This test was perfor med using the TPSA assay method for [employer] chemistry system. Values obtained with differentassay methods cannot be used interchangably.When changing PSA assays in the course of monitoring apatient, additional sequential testing should be carriedout to confirm baseline values. Serum or plasma calcium ida urement (mass/volume)on 03-16-2022 Calcium [Mass/Vol] 9.0 mg/dL 8.5-10.1 [facility] Work Phone: Serum or plasma cholesterol in HDL measurement (mass/volume)on 03-16-2022 Cholesterol in HDL [Mass/Vol] 61 mg/dL >40 [facility] Work Phone: Comment on above: The drugs N-Acetylcy steine and Metamizole may falsely depress this assay. Reference Range HDL <40 mg/dL Low HDL Cholesterol HDL >or= 60 mg/dL High HDL Cholesterol Serum or plasma cholesterol in VLDL measurement (mass/volume)on 03-16-2022 Cholesterol in VLDL [Mass/Vol] 16 mg/dL 5-40 [facility] Work Phone: Serum or plasma creatinine m easurement (mass/volume)on 03-16-2022 Creatinine [Mass/Vol] 1.08 mg/dL 0.70-1.30 [facility] Work Phone: Comment on above: The validity of the calculated GFR & GFRAA in patients over 70 years has not been determined. Clinical correlation is essential. Serum or plasma low density lipoprotein (LDL) cholesterol measurement (mass/volume)on 03-16-2022 Cholesterol in LDL [Mass/Vol] 87 mg/dL 0-130 [facility] Work Phone: Serum or plasma urea nitroge n measurement (mass/volume)on 03-16-2022 Urea nitrogen [Mass/Vol] 20 mg/dL 7-18 [facility] Work Phone: Thin prep Papanicolaou smear with manual screeningon 03-16-2022 Thin prep Papanicolaou smear with manual screening 2 5-15 [facility] Work Phone: Absolute lymphocyte counton 01-27-2022 Lymphocytes Auto (Unsp spec) [#/Vol] 1.24 10*3/uL 0.83-4.51 [facility] Work Phone: Basophil percentageon 2021 Basophils/100 WBC (Bld) 0.8 % 0-1 [facility] Work Phone: Bilirubin [Mass/Vol] 0.80 mg/dL 0.20-1.00 [facility] Work Phone: Comment on above: For patients on eltr ombopag therapy, use of Dimension Sibley TBIL is not recommended. Chloride [Moles/Vol] 110 mmol/L 98-107 [facility] Work Phone: Eosinophils/100 WBC (Bld) 1.2 % 0-5 [facility] Work Phone: [phone] Glucose [Mass/Vol] 132 mg/dL 74-106 [facility] Work Phone: Comment on above: Fasting Glucose resu lt greater than or equal to 126 mg/dL suggests DIABETES MELLITUS per A.D.A. criteria. Neutrophils (Bld) [#/Vol] 4.7 10*3/uL 2.0-7.7 [facility] Work Phone: Neutrophils/100 WBC (Bld) 71.7 % 47-70 [facility] Work Phone: Potassium [Moles/Vol] 4.4 mmol/L 3.5-5.1 [facility] Work Phone: [phone] Protein [Mass/Vol] 7.0 g/dL 6.4-8.2 [facility] Work Phone: Sodium [Moles/Vol] 142 mmol/L 136-145 [facility] Work Phone: [phone] WBC (Bld) [#/Vol] 6.5 10*3/uL 4.4-11.0 [facility] Work Phone: Blood erythrocytes count (nu mber/volume)on 01-27-2022 RBC (Bld) [#/Vol] 5.27 10*6/uL 4.6-6.2 [facility] Work Phone: Blood hemoglobin measurement (mass/volume)on 01-27-2022 Hemoglobin (Bld) [Mass/Vol] 16.1 g/dL 13.0-16.5 [facility] Work Phone: Blood lymphocytes/100 leukoc yteson 01-27-2022 Lymphocytes/100 WBC (Bld) 19.0 % 19-41 [facility] Work Phone: Blood monocytes/100 leukocyt eson 01-27-2022 Monocytes/100 WBC (Bld) 6.7 % 0-10 [facility] Work Phone: Blood platelet mean volumeon 01-27-2022 Platelet mean volume (Bld) [Entitic vol] 9.0 fL 6.2-12.0 [facility] Work Phone: Determination of erythrocyte mean corpuscular volume (MCV)on 01-27-2022 MCV (RBC) [Entitic vol] 88.8 fL 80-94 [facility] Work Phone: Hematocrit Auto (Bld) [Volum e fraction]on 01-27-2022 Hematocrit (Bld) [Volume fraction] 46.8 % 40-54 [facility] Work Phone: Laboratory - Chemistry and C hemistry - challengeon 01-27-2022 ALP [Catalytic activity/Vol] 75 U/L 45-117 [facility] Work Phone: ALT [Catalytic activity/Vol] 21 U/L 16-61 [facility] Work Phone: CO2 [Moles/Vol] 24.0 mmol/L 21.0-32.0 [facility] Work Phone: Globulin (S) [Mass/Vol] 3.2 g/dL 2.2-4.2 [facility] Work Phone: Urea nitrogen/Creatinine [Mass ratio] 21.6 mg/mg 10-20 [facility] Work Phone: Laboratory - Hematology and Cell countson 01-27-2022 Erythrocyte distribution width (RBC) [Entitic vol] 42.1 fL 35.1-43.9 [facility] Work Phone: Erythrocyte distribution width (RBC) [Ratio] 12.9 % 11.6-14.6 [facility] Work Phone: Immature granulocytes/100 WBC (Bld) 0.600 % 0.0-0.9 [facility] Work Phone: Comment on above: IG% - Immature Granu locytes (promyelocytes, myelocytes and metamyelocytes) > 1% indicates that a LEFT SHIFT is Present. MCH (RBC) [Entitic mass] 30.6 pg 27.0-32.0 [facility] Work Phone: Nucleated RBC/100 WBC (Bld) [Ratio] 0 % 0-5 [facility] Work Phone: MCHC Auto (RBC) [Mass/Vol]on 01-27-2022 MCHC (RBC) [Mass/Vol] 34.4 g/dL 32-36 [facility] Work Phone: No Panel Informationon 01-27 Estimated Creatinine Clearance Calc 65.82 ml/min [facility] Work Phone: Estimated GFR (MDRD) Amer 81 mL/min >60 [facility] Work Phone: Comment on above: GFR Calc Estimated GFR (MDRD) Non-Af Amer 67 mL/min >60 [facility] Work Phone: Comment on above: Non- GFR Calc Platelets bldon 01-27-2022 Platelets (Bld) [#/Vol] 195 10*3/uL 150-450 [facility] Work Phone: Serum or plasma albumin ida urement (mass/volume)on 01-27-2022 Albumin [Mass/Vol] 3.8 g/dL 3.2-5.0 [facility] Work Phone: Serum or plasma albumin/glob ulin mass ratioon 01-27-2022 Albumin/Globulin [Mass ratio] 1.2 {ratio} 0.9-2.4 [facility] Work Phone: Serum or plasma calcium ida urement (mass/volume)on 01-27-2022 Calcium [Mass/Vol] 9.2 mg/dL 8.5-10.1 [facility] Work Phone: Serum or plasma creatinine m easurement (mass/volume)on 01-27-2022 Creatinine [Mass/Vol] 1.16 mg/dL 0.70-1.30 [facility] Work Phone: Comment on above: The validity of the calculated GFR & GFRAA in patients over 70 years has not been determined. Clinical correlation is essential. Serum or plasma urea nitroge n measurement (mass/volume)on 01-27-2022 Urea nitrogen [Mass/Vol] 25 mg/dL 7-18 [facility] Work Phone: Thin prep Papanicolaou smear with manual screeningon 01-27-2022 Thin prep Papanicolaou smear with manual screening 20 U/L 15-37 [facility] Work Phone: Thin prep Papanicolaou smear with manual screening 8 5-15 [facility] Work Phone: Thin prep Papanicolaou smear with manual screening 177 U/L 87-241 [facility] Work Phone: Basophil percentageon 2021 Chloride [Moles/Vol] 107 mmol/L 98-107 [facility] Work Phone: Cholesterol [Mass/Vol] 156 mg/dL <200 [facility] Work Phone: Comment on above: <200 mg/dL Desirable 200-240 mg/dL Borderline >240 mg/dL High Risk Glucose [Mass/Vol] 89 mg/dL 74-106 [facility] Work Phone: Potassium [Moles/Vol] 3.8 mmol/L 3.5-5.1 [facility] Work Phone: Sodium [Moles/Vol] 141 mmol/L 136-145 [facility] Work Phone: Triglyceride [Mass/Vol] 61 mg/dL [facility] Work Phone: Comment on above: The drugs N-Acetylcy steine and Metamizole may falsely depress this assay.Serum Triglycerides Reference Interval Normal <150 mg/dL Borderline high 150 - 199 mg/dL High 200 - 499 mg/dL Very High > or = 500 mg/dL Laboratory - Chemistry and C hemistry - challengeon 09-21-2021 CO2 [Moles/Vol] 27.0 mmol/L 21.0-32.0 [facility] Work Phone: Urea nitrogen/Creatinine [Mass ratio] 16.5 mg/mg 10-20 [facility] Work Phone: No Panel Informationon 09-21 Estimated GFR (MDRD) Amer 73 mL/min >60 [facility] Work Phone: Comment on above: GFR Calc Estimated GFR (MDRD) Non-Af Amer 60 mL/min >60 [facility] Work Phone: Comment on above: Non- GFR Calc Serum or plasma calcium ida urement (mass/volume)on 09-21-2021 Calcium [Mass/Vol] 8.9 mg/dL 8.5-10.1 [facility] Work Phone: Serum or plasma cholesterol in HDL measurement (mass/volume)on 09-21-2021 Cholesterol in HDL [Mass/Vol] 59 mg/dL [facility] Work Phone: Comment on above: The drugs N-Acetylcy steine and Metamizole may falsely depress this assay. Reference Range HDL <40 mg/dL Low HDL Cholesterol HDL >or= 60 mg/dL High HDL Cholesterol Serum or plasma cholesterol in VLDL measurement (mass/volume)on 09-21-2021 Cholesterol in VLDL [Mass/Vol] 12 mg/dL 5-40 [facility] Work Phone: Serum or plasma creatinine m easurement (mass/volume)on 09-21-2021 Creatinine [Mass/Vol] 1.27 mg/dL 0.70-1.30 [facility] Work Phone: Comment on above: The validity of the calculated GFR & GFRAA in patients over 70 years has not been determined. Clinical correlation is essential. Serum or plasma low density lipoprotein (LDL) cholesterol measurement (mass/volume)on 09-21-2021 Cholesterol in LDL [Mass/Vol] 85 mg/dL 0-130 [facility] Work Phone: Serum or plasma urea nitroge n measurement (mass/volume)on 09-21-2021 Urea nitrogen [Mass/Vol] 21 mg/dL 7-18 [facility] Work Phone: Thin prep Papanicolaou smear with manual screeningon 09-21-2021 Thin prep Papanicolaou smear with manual screening 7 5-15 [facility] Work Phone: Erythrocyte distribution wid th standard deviationon 06-19-2017 Erythrocyte distribution width (RBC) [Entitic vol] 41.6 fL 35.1-43.9 [facility] Work Phone: Laboratory - Hematology and Cell countson 06-19-2017 Erythrocyte distribution width (RBC) [Ratio] 13.1 % 11.6-14.6 [facility] Work Phone: Total cell counton 8 Cells counted [employer] (Bld/Tiss) [#] Not Reportable [facility] Work Phone: Vital Signs Date Time Vital Sign Value Performing Clinician Facility 12-11-2024 15:28-0400 Body height 177.8 cm [employer] Work Phone: [facility] 12-11-2024 15:28-0400 Body mass index (BMI) [Ratio] 28.18 kg/m2 [employer] Work Phone: [facility] 12-11-2024 15:28-0400 Body temperature 97.59 [degF] Starr Sprockel PA-C Work Phone: [facility] [place] 12-11-2024 15:28-0400 Body weight 89.09 kg Starr Sprockel PA-C Work Phone: [facility] [place] 12-11-2024 15:28-0400 Diastolic blood pressure 81 mm[Hg] Starr Sprockel PA-C Work Phone: [facility] 12-11-2024 15:28-0400 Heart rate 68 /min Starr Sprockel PA-C Work Phone: [facility] 12-11-2024 15:28-0400 SaO2% (BldA) [Mass fraction] 98 % Starr Sprockel PA-C Work Phone: [facility] 12-11-2024 15:28-0400 Systolic blood pressure 137 mm[Hg] Starr Sprockel PA-C Work Phone: [facility] 12-03-2024 08:48-0400 Body temperature 97.5 [degF] Kayla Erwin MD Work Phone: [facility] 12-03-2024 08:48-0400 Body weight 87.08 kg Kayla Erwin MD Work Phone: [facility] 12-03-2024 08:48-0400 Diastolic blood pressure 79 mm[Hg] Kayla Erwin MD Work Phone: [facility] 12-03-2024 08:48-0400 Heart rate 65 /min Kayla Erwin MD Work Phone: [facility] 12-03-2024 08:48-0400 Respiratory rate 16 /min Kayla Erwin MD Work Phone: [facility] 12-03-2024 08:48-0400 SaO2% (BldA) [Mass fraction] 98 % Kayla Erwin MD Work Phone: [facility] 12-03-2024 08:48-0400 Systolic blood pressure 116 mm[Hg] Kayla Erwin MD Work Phone: [facility] 10-29-2024 15:00-0400 Diastolic blood pressure 86 mm[Hg] Josue Garcia MD Work Phone: [facility] 10-29-2024 15:00-0400 Heart rate 63 /min Josue Garcia MD Work Phone: [facility] 10-29-2024 15:00-0400 Respiratory rate 18 /min Josue Garcia MD Work Phone: [facility] 10-29-2024 15:00-0400 SaO2% (BldA) [Mass fraction] 99 % Josue Garcia MD Work Phone: [facility] 10-29-2024 15:00-0400 Systolic blood pressure 143 mm[Hg] Josue Garcia MD Work Phone: [facility] [place] 10-29-2024 14:15-0400 Body temperature 98.01 [degF] Josue Garcia MD Work Phone: [facility] [place] 10-29-2024 07:32-0400 Body height 177.8 cm Josue Garcia MD Work Phone: [facility] [place] 10-29-2024 07:32-0400 Body mass index (BMI) [Ratio] 27.12 kg/m2 Josue Garcia MD Work Phone: [facility] [place] 10-29-2024 07:32-0400 Body weight 85.73 kg Josue Garcia MD Work Phone: [facility] [place] 10-15-2024 10:00-0400 Body height 177.8 cm Cecelia Wright PA-C Work Phone: [facility] [place] 10-15-2024 10:00-0400 Body mass index (BMI) [Ratio] 27.26 kg/m2 Cecelia Wright PA-C Work Phone: [facility] [place] 10-15-2024 10:00-0400 Body temperature 97.5 [degF] Cecelia Wright PA-C Work Phone: [facility] [place] 10-15-2024 10:00-0400 Body weight 86.18 kg Cecelia Wright PA-C Work Phone: [facility] [place] 10-15-2024 10:00-0400 Diastolic blood pressure 75 mm[Hg] Cecelia Wright PA-C Work Phone: [facility] [place] 10-15-2024 10:00-0400 Heart rate 58 /min Cecelia Wright PA-C Work Phone: [facility] [place] 10-15-2024 10:00-0400 Respiratory rate 14 /min Cecelia Wright PA-C Work Phone: [facility] [place] 10-15-2024 10:00-0400 SaO2% (BldA) [Mass fraction] 97 % Cecelia Wright PA-C Work Phone: [facility] [place] 10-15-2024 10:00-0400 Systolic blood pressure 122 mm[Hg] Cecelia Wright PA-C Work Phone: [facility] [place] 08-21-2024 09:34-0400 Body height 179.1 cm Ken Quintanilla MD Work Phone: [facility] [place] 08-21-2024 09:34-0400 Body mass index (BMI) [Ratio] 27.44 kg/m2 Ken Quintanilla MD Work Phone: [facility] [place] 08-21-2024 09:34-0400 Body weight 88 kg Ken Quintanilla MD Work Phone: [facility] [place] 08-21-2024 09:34-0400 Diastolic blood pressure 87 mm[Hg] Ken Quintanilla MD Work Phone: [facility] [place] 08-21-2024 09:34-0400 Heart rate 51 /min Ken Quintanilla MD Work Phone: [facility] [place] 08-21-2024 09:34-0400 Respiratory rate 16 /min Ken Quintanilla MD Work Phone: [facility] [place] 08-21-2024 09:34-0400 SaO2% (BldA) [Mass fraction] 97 % Ken Quintanilla MD Work Phone: [facility] [place] 08-21-2024 09:34-0400 Systolic blood pressure 119 mm[Hg] Ken Quintanilla MD Work Phone: [facility] [place] 08-12-2024 14:11-0400 Body height 179.1 cm Starr Sprockel PA-C Work Phone: [facility] [place] 08-12-2024 14:11-0400 Body mass index (BMI) [Ratio] 27.36 kg/m2 Starr Sprockel PA-C Work Phone: [facility] [place] 08-12-2024 14:11-0400 Body temperature 98.1 [degF] Starr Sprockel PA-C Work Phone: [facility] [place] 08-12-2024 14:11-0400 Body weight 87.73 kg Starr Sprockel PA-C Work Phone: [facility] [place] 08-12-2024 14:11-0400 Diastolic blood pressure 70 mm[Hg] Starr Sprockel PA-C Work Phone: [facility] [place] 08-12-2024 14:11-0400 Heart rate 64 /min Starr Sprockel PA-C Work Phone: [facility] [place] 08-12-2024 14:11-0400 Respiratory rate 20 /min Starr Sprockel PA-C Work Phone: [facility] [place] 08-12-2024 14:11-0400 SaO2% (BldA) [Mass fraction] 98 % Starr Sprockel PA-C Work Phone: [facility] [place] 08-12-2024 14:11-0400 Systolic blood pressure 116 mm[Hg] Starr Sprockel PA-C Work Phone: [facility] [place] 07-10-2024 11:05-0500 Body height 177.8 cm Ken Quintanilla MD Work Phone: [facility] [place] 07-10-2024 11:05-0500 Body mass index (BMI) [Ratio] 27.39 kg/m2 Ken Quintanilla MD Work Phone: [facility] [place] 07-10-2024 11:05-0500 Body weight 86.59 kg Ken Quintanilla MD Work Phone: [facility] [place] 07-10-2024 11:05-0500 Diastolic blood pressure 85 mm[Hg] Ken Quintanilla MD Work Phone: [facility] [place] 07-10-2024 11:05-0500 Heart rate 54 /min Ken Quintanilla MD Work Phone: [facility] [place] 07-10-2024 11:05-0500 SaO2% (BldA) [Mass fraction] 97 % Ken Quintanilla MD Work Phone: [facility] [place] 07-10-2024 11:05-0500 Systolic blood pressure 125 mm[Hg] Ken Quintanilla MD Work Phone: [facility] [place] 06-21-2024 10:29-0500 Body height 177.8 cm Suresh Escobedo MD Work Phone: [facility] [place] 06-21-2024 10:29-0500 Body mass index (BMI) [Ratio] 26.4 kg/m2 Suresh Escobedo MD Work Phone: [facility] [place] 06-21-2024 10:29-0500 Body weight 83.46 kg Suresh Escobedo MD Work Phone: [facility] [place] 04-23-2024 12:00-0500 Body height 177.8 cm Radha Blanco RUG SHAMPOOER-SEVERITY OF ILLNESS COORDINATOR Work Phone: [facility] [place] 04-23-2024 12:00-0500 Body mass index (BMI) [Ratio] 26.4 kg/m2 Radha Blanco RUG SHAMPOOER-SEVERITY OF ILLNESS COORDINATOR Work Phone: [facility] [place] 04-23-2024 12:00-0500 Body temperature 97.3 [degF] Radha Blanco RUG SHAMPOOER-SEVERITY OF ILLNESS COORDINATOR Work Phone: [facility] [place] 04-23-2024 12:00-0500 Body weight 83.46 kg Radha Blanco RUG SHAMPOOER-SEVERITY OF ILLNESS COORDINATOR Work Phone: [facility] [place] 04-23-2024 12:00-0500 Diastolic blood pressure 78 mm[Hg] Radha Blanco RUG SHAMPOOER-SEVERITY OF ILLNESS COORDINATOR Work Phone: [facility] [place] 04-23-2024 12:00-0500 Heart rate 54 /min Radha Blanco RUG SHAMPOOER-SEVERITY OF ILLNESS COORDINATOR Work Phone: [facility] [place] 04-23-2024 12:00-0500 Respiratory rate 10 /min Radha Blanco RUG SHAMPOOER-SEVERITY OF ILLNESS COORDINATOR Work Phone: [facility] [place] 04-23-2024 12:00-0500 SaO2% (BldA) [Mass fraction] 98 % Radha Blanco RUG SHAMPOOER-SEVERITY OF ILLNESS COORDINATOR Work Phone: [facility] [place] 04-23-2024 12:00-0500 Systolic blood pressure 131 mm[Hg] Radha Blanco RUG SHAMPOOER-SEVERITY OF ILLNESS COORDINATOR Work Phone: [facility] [place] 04-03-2024 11:16-0500 Body height 180 cm Gary Rodriguez MD Work Phone: [facility] 04-03-2024 11:16-0500 Body mass index (BMI) [Ratio] 25.69 kg/m2 Gary Rodriguez MD Work Phone: [facility] 04-03-2024 11:16-0500 Body temperature 97.81 [degF] Gary Rodriguez MD Work Phone: [facility] 04-03-2024 11:16-0500 Body weight 83.23 kg Gary Rodriguez MD Work Phone: [facility] 04-03-2024 11:16-0500 Diastolic blood pressure 83 mm[Hg] Gary Rodriguez MD Work Phone: [facility] 04-03-2024 11:16-0500 Heart rate 51 /min Gary Rodriguez MD Work Phone: [facility] 04-03-2024 11:16-0500 SaO2% (BldA) [Mass fraction] 100 % Gary Rodriguez MD Work Phone: [facility] 04-03-2024 11:16-0500 Systolic blood pressure 133 mm[Hg] Gary Rodriguez MD Work Phone: [facility] 02-21-2024 08:40-0400 Body height 182.9 cm Josue Garcia MD Work Phone: [facility] [place] 02-21-2024 08:40-0400 Body mass index (BMI) [Ratio] 24.55 kg/m2 Josue Garcia MD Work Phone: [facility] [place] 02-21-2024 08:40-0400 Body weight 82.1 kg Josue Garcia MD Work Phone: [facility] [place] 03-24-2023 22:55-0400 Diastolic blood pressure 77 mm[Hg] [facility] 03-24-2023 22:55-0400 Heart rate 65 /min [facility] 03-24-2023 22:55-0400 Respiratory rate 15 /min [facility] 03-24-2023 22:55-0400 SaO2% (BldA) [Mass fraction] 95 % [facility] 03-24-2023 22:55-0400 Systolic blood pressure 120 mm[Hg] [facility] 03-24-2023 19:08-0400 Body height 180.34 cm [facility] 03-24-2023 19:08-0400 Body mass index (BMI) [Ratio] 25.2 kg/m2 [facility] 03-24-2023 19:08-0400 Body temperature 97.4 [degF] [facility] 03-24-2023 19:08-0400 Body weight 82.28 kg [facility] 01-27-2022 14:54-0400 Body height 180.[address] Salinas Ford Work Phone: [facility] Work Phone: 01-27-2022 14:50-0400 Body mass index (BMI) [Ratio] 24 kg/m2 Dr. Salinas Ford Work Phone: [facility] Work Phone: 01-27-2022 14:50-0400 Body temperature 98.6 [degF] Dr. Salinas Ford Work Phone: [facility] Work Phone: 01-27-2022 14:50-0400 Body weight 78.[address] Salinas Ford Work Phone: [facility] Work Phone: 01-27-2022 14:50-0400 Diastolic blood pressure 58 mm[Hg] Dr. Salinas Ford Work Phone: [facility] Work Phone: 01-27-2022 14:50-0400 Heart rate 51 /min Dr. Salinas Ford Work Phone: [facility] Work Phone: 01-27-2022 14:50-0400 Respiratory rate 15 /min Dr. Salinas Ford Work Phone: [facility] Work Phone: 01-27-2022 14:50-0400 SaO2% (BldA) [Mass fraction] 97 % Dr. Salinas Ford Work Phone: [facility] Work Phone: 01-27-2022 14:50-0400 Systolic blood pressure 96 mm[Hg] Dr. Salinas Ford Work Phone: [facility] Work Phone: 10-27-2020 12:26-0400 Body mass index (BMI) [Ratio] 26.7 kg/m2 Dr. Salinas Ford Work Phone: [facility] Work Phone: 01-22-2020 14:35-0400 Body temperature 97.7 [degF] Dr. Salinas Ford Work Phone: [facility] Work Phone: 01-22-2020 14:35-0400 Body weight 87.[address] Salinas Ford Work Phone: [facility] Work Phone: 01-22-2020 14:35-0400 Diastolic blood pressure 68 mm[Hg] Dr. Salinas Ford Work Phone: [facility] Work Phone: 01-22-2020 14:35-0400 Heart rate 60 /min Dr. Salinas Ford Work Phone: [facility] Work Phone: 01-22-2020 14:35-0400 Respiratory rate 12 /min Dr. Salinas Ford Work Phone: [facility] Work Phone: 01-22-2020 14:35-0400 SaO2% (BldA) [Mass fraction] 97 % Dr. Salinas Ford Work Phone: [facility] Work Phone: 01-22-2020 14:35-0400 Systolic blood pressure 101 mm[Hg] Dr. Salinas Ford Work Phone: [facility] Work Phone: Encounters Encounter Date Encounter Type Care Provider Facility Start: 02-11-2025 ambulatory SALINAS FORD Facility :[facility] Start: 12-16-2024 End: 12-16-2024 ambulatory Kayla Erwin MD Work Phone: -[facility] Start: 12-16-2024 End: 12-16-2024 Patient encounter procedure Kayla Erwin MD Work Phone: -[facility] Work Phone: Start: 12-16-2024 End: 12-16-2024 ambulatory 1 HOWARD Facility:[facility] Start: 12-11-2024 ambulatory KAYLA YAIMA Facility:[facility] Start: 12-11-2024 End: 12-11-2024 Office outpatient visit 15 minutes Starr Lino PA-C Work Phone: Division of Hematology & Oncology Comment on above: VTE (venous thromboe mbolism) (Primary Dx) Start: 12-11-2024 End: 12-11-2024 Office outpatient new 60 minutes Josue Garcia MD Work Phone: [facility] Comment on above: Primary osteoarthrit is of left knee (Primary Dx); Status post right hip replacement Start: 12-11-2024 [facility] Facility:[facility] Start: 12-11-2024 End: 12-11-2024 Subsequent hospital visit by physician Josue Garcia MD Work Phone: [facility] Comment on above: Arrived Start: 12-03-2024 End: 12-03-2024 Patient encounter procedure Ericka SINGH [facility] Work Phone: Start: 12-03-2024 End: 12-03-2024 ambulatory Kayla Erwin MD Work Phone: [facility] Start: 11-13-2024 End: 11-13-2024 Telemedicine consultation with patient Starr Cuencaerin BORREGO Work Phone: Division of Hematology & Oncology Comment on above: VTE (venous thromboe mbolism) (Primary Dx) Start: 11-13-[address] [facility] Facility:[facility] Start: 11-13-2024 End: 11-13-2024 Postop follow up visit related to original px Shaila Walters PA-C Work Phone: [facility] Comment on above: Status post right hi p replacement (Primary Dx) Start: 11-13-2024 [facility] Facility:[facility] Start: 10-30-2024 [facility] Facility:[facility] Start: 10-29-2024 End: 10-29-[address] [facility] Facility:[facility] Start: 10-29-2024 End: 10-29-2024 Encounter for other preprocedural examination JOSUE GARCIA Facility:[facility] Start: 10-29-2024 End: 10-29-2024 Patient encounter status Josue Garcia MD Work Phone: [facility] [place] Start: 10-29-2024 End: 10-29-2024 Subsequent hospital visit by physician Josue Garcia MD Work Phone: [facility] [place] [facility] Comment on above: Right hip pain Start: 10-22-2024 End: 10-23-2024 Telephone encounter Shaila Walters PA-C Work Phone: [facility] Comment on above: Medication Managemen t Start: 10-22-[address] [facility] Facility:[facility] Start: 10-15-2024 ambulatory JOSUE GARCIA F acility:[facility] Start: 10-15-2024 End: 10-21-2024 Office consultation new/estab patient 60 min Cecelia SINGH-C Work Phone: Pre-Procedure Evaluation [facility] Comment on above: Preop exam for inter nal medicine (Primary Dx); Chronic right hip pain; Gastroesophageal reflux disease without esophagitis; Essential hypertension Start: 10-15-2024 End: 10-21-2024 Patient encounter status Cecelia SINGH-C Work Phone: [facility] [place] Start: 10-15-2024 ambulatory CECELIA WRIGHT Facility :[facility] Start: 08-21-2024 End: 08-21-2024 Office outpatient visit 40 minutes Ken Quintanilla MD Work Phone: [facility] [place] Comment on above: Degeneration of inte rvertebral disc of lumbar region, unspecified whether pain present (Primary Dx) Start: 08-21-[address] [facility] Facility:[facility] Start: 08-12-2024 End: 08-12-2024 Office outpatient new 45 minutes Starr SINGH-C Work Phone: Division of Hematology & Oncology Comment on above: VTE (venous thromboe mbolism) (Primary Dx) Start: 08-12-[address] [facility] Facility:[facility] Start: 07-23-2024 End: 07-23-2024 [facility] Start: 07-11-2024 End: 07-11-2024 ambulatory Anabel Luis Antonio VIOLIN MECHANIC Facility:[facility] Start: 07-10-2024 End: 07-10-2024 Office consultation new/estab patient 80 min Ken Quintanilla MD Work Phone: [facility] [place] Comment on above: Degeneration of inte rvertebral disc of lumbar region, unspecified whether pain present (Primary Dx); Lumbar radiculopathy Start: 07-10-[address] [facility] Facility:[facility] Start: 07-10-2024 End: 07-10-2024 Subsequent hospital visit by physician Ken Quintanilla MD Work Phone: [facility] [place] Comment on above: Arrived Start: 07-08-2024 End: 07-08-2024 Office outpatient visit 40 minutes Josue Garcia MD Work Phone: [facility] Comment on above: Primary osteoarthrit is of right hip (Primary Dx) Start: 07-08-2024 ambulatory CHALON YAIMA Facility:[facility] Start: 07-05-2024 End: 07-05-2024 ambulatory Chalon Yaima Facility:[facility] Start: 06-21-2024 End: 06-21-2024 Office outpatient new 45 minutes Suresh Escobedo MD Work Phone: Sports Medicine [facility] Comment on above: Right hip pain (Prim edmond Dx) Start: 06-21-2024 End: 06-21-2024 Subsequent hospital visit by physician Suresh Escobedo MD Work Phone: Imaging [facility] Comment on above: Arrived Start: 06-21-2024 ambulatory CHALON YAIMA Facility:[facility] Start: 06-20-2024 End: 06-20-2024 ambulatory Chalon Yaima Facility:[facility] Start: 06-15-2024 End: 06-15-2024 ambulatory Chalon Yaima Facility:[facility] Start: 05-27-2024 End: 05-27-2024 ambulatory [facility] Facility:[facility] Start: 05-24-2024 End: 05-24-2024 ambulatory Chalon Yaima Facility:[facility] Start: 05-20-2024 End: 05-20-2024 ambulatory Chalon Yaima Facility:[facility] Start: 05-20-2024 End: 05-20-2024 ambulatory [facility] Facility:[facility] Start: 05-13-2024 End: 05-13-2024 ambulatory [facility] Facility:[facility] Start: 05-08-2024 End: 05-08-2024 ambulatory [facility] Facility:[facility] Start: 04-29-2024 End: 04-29-2024 ambulatory [facility] Facility:[facility] Start: 04-25-2024 ambulatory CHALON YAIMA Facility:[facility] Start: 04-25-2024 End: 04-25-2024 ambulatory [facility] Facility:[facility] Start: 04-23-[address] 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 Facility:[facility] Start: 04-03-2024 End: 04-03-2024 Patient encounter procedure Gary Rodriguez MD Work Phone: Hematology/Oncology Start: 04-03-2024 End: 04-03-2024 ambulatory Gary Rodriguez MD Work Phone: Hematology/Oncology Comment on above: Other acute pulmonar y embolism without acute cor pulmonale (HCC) (Primary Dx) Start: 04-01-2024 End: 04-01-2024 Telephone encounter [facility] Comment on above: Patient Question Start: 03-28-2024 End: 03-28-2024 ambulatory [facility] Facility:[facility] Start: 03-25-2024 End: 03-25-2024 ambulatory [facility] Start: 03-20-2024 End: 03-21-2024 Emergency department patient visit Israel Michelle Facility:[facility] Start: 03-12-[address] [facility] Facility:[facility] Start: 02-21-2024 End: 02-21-2024 Office outpatient new 60 minutes Josue Garcia MD Work Phone: [facility] Comment on above: Primary osteoarthrit is of left knee (Primary Dx); Left knee pain, unspecified chronicity Start: 02-21-2024 End: 02-21-2024 Subsequent hospital visit by physician Josue Garcia MD Work Phone: [facility] Comment on above: Arrived Start: 02-21-2024 ambulatory SALINAS FORD Facility :[facility] Start: 02-20-2024 ambulatory [facility] Facility:[facility] Start: 02-20-2024 End: 02-20-2024 ambulatory [facility] Facility:[facility] Start: 01-25-2024 End: 01-25-2024 Office outpatient visit 15 minutes Nora Glynn MD Work Phone: Sports Medicine [facility] Comment on above: Left knee pain, unsp ecified chronicity (Primary Dx); Primary osteoarthritis of left knee Start: 01-25-2024 ambulatory NORA Leo acility:[facility] Start: 01-25-2024 End: 01-25-2024 Subsequent hospital visit by physician Nora Glynn MD Work Phone: Imaging [facility] Comment on above: Arrived Start: 01-12-2024 End: 01-12-2024 ambulatory [facility] Facility:[facility] Start: 09-13-2023 End: 09-13-2023 ambulatory [facility] Work Phone: Start: 09-13-2023 End: 09-13-2023 Patient encounter procedure [facility] [place] Start: 03-24-2023 End: 03-24-2023 Emergency department patient visit [facility] Work Phone: Start: 03-21-2023 End: 03-21-2023 ambulatory [facility] Work Phone: Start: 03-21-2023 End: 03-21-2023 Patient encounter procedure [facility] Work Phone: Start: 03-09-2023 End: 03-09-2023 Patient encounter procedure Lori A Backs PAC Work Phone: [facility] Comment on above: Osteoarthritis of le ft knee, unspecified osteoarthritis type (Primary Dx) Start: 02-23-2023 End: 02-23-2023 Patient encounter procedure Lori A Backs PAC Work Phone: [facility] Comment on above: Osteoarthritis of le ft knee, unspecified osteoarthritis type (Primary Dx) Start: 02-16-2023 End: 02-16-2023 Patient encounter procedure Lori A Backs PAC Work Phone: [facility] Comment on above: Osteoarthritis of le ft knee, unspecified osteoarthritis type (Primary Dx) Start: 01-05-2023 End: 01-05-2023 Office outpatient new 30 minutes Nora Glynn MD Work Phone: [facility] Comment on above: Osteoarthritis of le ft knee, unspecified osteoarthritis type (Primary Dx); Left knee pain, unspecified chronicity Start: 01-05-2023 End: 01-05-2023 Subsequent hospital visit by physician Nora Glynn MD Work Phone: [facility] Comment on above: Arrived Start: 03-16-2022 End: 03-16-[address] Salinas Ford Work Phone: [facility] Work Phone: Start: 03-16-2022 End: 03-16-[address] Salinas Ford Work Phone: [facility] Start: 01-27-2022 End: 01-27-[address] Salinas Ford Work Phone: [facility] Start: 01-27-[address] Salinas Ford Work Phone: [facility] Start: 09-21-2021 End: 09-21-2021 Patient encounter procedure [facility], [place] Start: 12-23-2020 End: 12-23-2020 Telephone encounter Fauzia Hidalgo MD Work Phone: Neurology Comment on above: Received Outside Med ical Records Start: 11-26-2020 End: 11-26-2020 Transcribe Orders Salinas Ford MD Work Phone: [facility], Neuroscience Comment on above: Amnesia (Primary Dx) ; Amnesia, global, transient Procedures Date Procedure Procedure Detail Performing Clinician Start: 12-16-2024 Procedure Kayla Erwin MD Work Phone: Comment on above: Test Ordered: [id number] Factor V Leiden Mut ationFactor V Leiden TG Reference Range: .Test not performed. The required specimen for the testordered was not received.RECEIVED PLASMAREQUIRES LAVENDER SAMPLE,WHOLE BLOODCONTACTED JUSTIN AT YOUR FACILITY ON [phone] Clinical Information: Venous thromboembolism is a multifactorial diseaseinfluenced by genetic, environmental, and circumstantialrisk factors. The c.1601G>A (p. [id number]) variant in theF5 gene, commonly referred to as Factor V Leiden, is agenetic risk factor for venous thromboembolism.Heterozygous carriers of this variant have a 6- to 8-foldincreased risk for venous thromboembolism. Individualshomozygous for this variant (ie, with a copy of the varianton each chromosome) have an approximately 80-fold increasedrisk for venous thromboembolism. Individuals who carry minerva c.*97G>A variant in the F2 gene and Factor V Leiden havean approximately 20-fold increased risk for venousthromboembolism. Risks are likely to be even higher in morecomplex genotype combinations involving the F2 c.*97G>Avariant and Factor V Leiden (PMID: 72783605). Additionalrisk factors include but are not limited to: deficiency ofprotein C, protein S, or antithrombin III, age, male sex,personal or family history of deep vein thromboembolism,smoking, surgery, prolonged immobilization, malignantneoplasm, tamoxifen treatment, raloxifene treatment, oralcontraceptive use, hormone replacement therapy, andpregnancy. Management of thrombotic risk and thromboticevents should follow established guidelines and fit theclinical circumstance. This result cannot predict theoccurrence or recurrence of a thrombotic event.Comment: Genetic counseling is recommended to discuss thepotential clinical implications of positive results, aswell as recommendations for testing family members. Genetic Coordinators are available for health careproviders to discuss results at [phone] ([phone]).Test Details: Variant Analyzed: c.1601G>A (p. [id number]), referredto as Factor V LeidenMethods/Limitations: DNA analysis of the F5 gene (NM_000130.5) wasperformed by PCR amplification followed by electrophoresis.The diagnostic sensitivity is >99%. Results must becombined with clinical information for the most accurateinterpretation. Molecular-based testing is highly accurate,but as in any laboratory test, diagnostic errors may occur.False positive or false negative results may occur forreasons that include genetic variants, blood transfusions,bone marrow transplantation, somatic or tissue-specificmosaicism, mislabeled samples, or erroneous representationof family relationships. This test was developed and its performancecharacteristics determined by [facility]. It has not beencleared or approved by the Food and Drug Administration.References: Juanito Malave, Justin MALONE, Ramirez R, Rickey WW, Beau JH;[facility] Professional Practice and Guidelines Committee.Addendum: [employer] consensusstatement on factor V Leiden mutation testing. Odilia Med.2020Jul 24. doi: 10.1038/j13876-169-52821-a. PMID:80716819. Juan ALCALA. Factor V Leiden Thrombophilia. 1998October 02(Updated 2017May 25). In: aCio MP, Trevor HH, Ricardo RA,et al., editors. Fatou(R) (Internet). [place] ([place]):[employer], [place]; 0894-4384. Availablefrom: https://www.ncbi.nlm.nih.gov/books/TEH5412/ Drew [facility], Justin MALONE, Luigi X, Bandar B, Marcelo EB, Rica P,Lucero CS; [facility] Laboratory Packaging Line Attendant Committee.Venous thromboembolism laboratory testing (factor V Leidenand factor II c. *97G>A), 2018 update: a technical standardof the [employer] and Genomics(ACMG). Odilia Med. 2018 Apr;20(12): 1658-6372. doi:10.1038/[id number]-y. Epub 2017Feb 23. PMID: 53299344.Reviewed By: VANESSA DAMON Reference Range: .Performed at: - [facility] [id number] [place], [place] [id number] Director: Mati Baig PhD, Phone: [phone] at: - [facility] [id number] [place], [place] [id number] Director: James Chow formerly [facility], Phone: [phone] Start: 12-16-2024 Laboratory data interpretation Kayla stone MD Work Phone: Comment on above: No lupus anticoagulant was detected. Start: 12-16-2024 Lupus anticoagulant assay, platelet neutralization method Kayla Erwin MD Work Phone: Start: 12-16-2024 Lupus anticoagulant screening test tM Erwin MD Work Phone: Start: 12-16-2024 Prothrombin time Kayla Erwin MD Work Phone: Start: 12-11-2024 Follow-up visit Follow-up STARR LINO Start: 12-11-2024 Radex hip unilateral with pelvis 2-3 views Josue Garcia MD Work Phone: Start: 10-29-2024 Radex hip unilateral with pelvis 1 view Jake Espinoza DO Work Phone: Start: 10-15-2024 Antibody screen Cecelia Wright PA-C Work Phone: Start: 10-15-2024 Antibody screen KAYLA ERWIN Comment on above: Performed By: #### [id number] #### [facility] (DEFAULT) [address] [place] [address] Start: 10-15-2024 Iadna s aureus amplified probe tq Cecelia Wright PA-C Work Phone: Start: 07-11-2024 LABS (OUTSIDE) Other Other OT Start: 07-10-2024 Radex spine lumbosacral minimum 4 views Ken Quintanilla MD Work Phone: Start: 06-21-2024 Radex hip unilateral with pelvis 2-3 views Suresh Escobedo MD Work Phone: Start: 04-23-2024 Antibody screen Radha Blanco RUG SHAMPOOER-SEVERITY OF ILLNESS COORDINATOR Work Phone: Start: 04-23-2024 Antibody screen KAYLA ERWIN Comment on above: Performed By: #### XMPO #### [facility] ([facility]) [address] [place] [address] Start: 04-23-2024 Iadna s aureus amplified probe tq Radha Blanco RUG SHAMPOOER-SEVERITY OF ILLNESS COORDINATOR Work Phone: Start: 02-21-2024 Bone length studies Josue Garcia MD Work Phone: Start: 01-25-2024 Radiologic exam knee complete 4/more views Nora Glynn MD Work Phone: Start: 03-24-2023 X-ray of cervical spine Start: 03-24-2023 Streptococcus pyogenes antigen assay Start: 03-09-2023 Arthrocentesis aspir&/inj major jt/bursa w/o us Lori A Backs PAC Work Phone: Start: 02-23-2023 Arthrocentesis aspir&/inj major jt/bursa w/o us Lori A Backs PAC Work Phone: Start: 02-16-2023 Arthrocentesis aspir&/inj major jt/bursa w/o us Lori A Backs PAC Work Phone: Start: 01-05-2023 Radiologic exam knee complete 4/more views Nora Glynn MD Work Phone: Plan of Treatment Date Care Activity Detail Author Start: 2029 RSV Vaccine (1 - 1-d ose 75+ series) RSV Vaccine (1 - 1-dose 75+ series) [facility] Start: 07-09-2029 Tetanus vaccination TETANUS [facility] Start: 07-09-2029 Urine microalbumin profile DTaP,Tdap,Td Vaccine (3 - Td or Tdap) [facility] Start: 08-13-2025 End: 08-13-2025 Patient encounter procedure 08/13/2025 2:00 PM EDT Office Visit Division of Hematology & Oncology [address] [facility] [address] [place] [phone] Santiago Yeboah MD [address] [facility] [address] [place] [phone] Division of Hematology & Oncology Start: 05-20-2025 End: 05-20-2025 Patient encounter procedure 05/20/2025 10:20 AM EST Office Visit [facility] [address] [place] [phone] Shaila Walters PA-C [address] [phone] [facility] Start: 03-26-2025 End: 03-26-2025 Patient encounter procedure 03/26/2025 10:20 AM EST Office Visit [facility] [address] [place] [phone] Josue Garcia MD [address] [address] [facility] Start: 02-26-2025 End: 02-26-2025 Patient encounter procedure 02/26/2025 10:15 AM EDT Office Visit [facility] [address] [place], [place] [phone] Ken Quintanilla MD 543 [place] [phone] [facility] [place] Start: 02-25-2025 End: 02-25-2025 Patient encounter procedure 02/25/2025 9:40 AM EDT Office Visit [facility] [address] [place] [address] Shaila Walters PA-C [facility] [address] [place] [address] [facility] Start: 02-12-2025 End: 02-12-2025 Telemedicine consultation with patient 02/12/2025 2:00 PM EDT Telemedicine [facility] [address] [place] [phone] Shaila Walters PA-C 543 [place] [address] [facility] Start: 02-04-2025 End: 02-04-2025 Patient encounter procedure 02/04/2025 12:40 PM EDT Office Visit [facility] [address] [place] [phone] Shaila Walters PA-C 543 [facility] [address] [place] [address] [facility] Start: 01-30-2025 End: 01-30-2025 Telemedicine consultation with patient 01/30/2025 8:00 AM EDT Telemedicine [facility] [address] [place] [phone] Shaila Walters PA-C [address] [address] [facility] Start: 01-20-[address] [facility] Start: 12-31-2024 End: 12-31-2024 Telemedicine consultation with patient 12/31/2024 12:00 PM EDT Telemedicine Division of Hematology & Oncology [address] [facility] 13th [place] [phone] Starr Lino PA-C [address] [facility] [address] [place] [address] Division of Hematology & Oncology Start: 12-16-2024 Antithrombin III ass ay, functional [facility] Start: 12-16-2024 Lupus anticoagulant assay [facility] Start: 12-16-2024 Protein C, functiona l assay [facility] Start: 12-16-2024 Protein S assay [facility] Start: 12-11-2024 End: 12-11-2024 Patient encounter procedure [facility] Start: 11-13-2024 End: 11-13-2024 Telemedicine consultation with patient 11/13/2024 3:00 PM EDT Telemedicine Division of Hematology & Oncology [address] [facility] [address] [phone] Starr Lino PA-C [address] [facility] [address] [phone] Division of Hematology & Oncology Start: 11-13-2024 End: 11-13-2024 Patient encounter procedure 11/13/2024 9:40 AM EDT Office Visit [facility] [address] [place] [phone] Shaila Walters PA-C 543 [place] [address] [facility] Start: 10-30-2024 End: 10-30-2024 Telemedicine consultation with patient 10/30/2024 2:00 PM EDT Telemedicine [facility] [address] [place] [phone] Shaila Walters PA-C 543 [facility] [address] [place] [address] [facility] Start: 10-29-2024 End: 10-29-2024 Admission to same day surgery center 10/29/2024 12:09 PM EDT - 10/29/2024 2:22 PM EDT Surgery [facility] [address] [address] Josue Garcia MD [address] [place] [address] [facility] Comment on above: RTHA DAA Start: 10-29-2024 End: 10-29-2024 Arthrp acetblr/prox fem prostc agrft/algrft ARTHROPLASTY HIP TOTAL ANTERIOR APPROACH Right hip pain 10/29/2024 12:09 PM EDT [facility] Start: 10-29-2024 Subsequent hospital visit by physician 10/29/2024 12:09 PM EDT Hospital Encounter [facility] [address] [address] Josue Garcia MD [address] [facility] [address] [place] [address] Right hip pain [facility] Surgery [facility] Comment on above: Right hip pain Start: 10-29-2024 End: 10-29-2024 Arthrp acetblr/prox fem prostc agrft/algrft ARTHROPLASTY HIP TOTAL ANTERIOR APPROACH Right hip pain 10/29/2024 9:31 AM EDT [facility] Start: 10-29-2024 End: 10-29-2024 Admission to same day surgery center 10/29/2024 7:15 AM EDT - 10/29/2024 9:28 AM EDT Surgery [facility] [address] [address] Josue Garcia MD [address] [place] [address] RTHA DAA [facility] Surgery [facility] Comment on above: RTHA DAA Start: 10-29-2024 End: 10-29-2024 Arthrp acetblr/prox fem prostc agrft/algrft ARTHROPLASTY HIP TOTAL ANTERIOR APPROACH Right hip pain 10/29/2024 7:15 AM EDT [facility] Start: 10-29-2024 Subsequent hospital visit by physician 10/29/2024 7:15 AM EDT Hospital Encounter [facility] [address] [facility] [address] [place] [address] Josue Garcia MD 543 [facility] 1074 [place] [phone] Right hip pain [facility] Surgery [facility] Comment on above: Right hip pain Start: 10-22-2024 End: 10-22-2024 Telemedicine consultation with patient 10/22/2024 2:00 PM EDT Telemedicine [facility] [address] [place] [phone] Shaila Walters PA-C 543 [facility] [address] [place] [address] [facility] Start: 10-15-2024 End: 10-15-2024 Patient encounter procedure 10/15/2024 11:00 AM EDT Pre-Operative Assessment Pre-Procedure Evaluation and Assessment [facility]patient [facility] [address] [facility] [address] [place] [address] Cecelia Wright PA-C [address] [place] [phone] Pre-Procedure Evaluation and Assessment [facility]patient [facility] Start: 09-10-2024 End: 09-10-2024 Patient encounter procedure 09/10/2024 9:30 AM EDT Office Visit Spine Care [facility] [address] [place] [phone] Kaiden Yadav MD 543 [place] [address] Sp[facility] Start: 08-21-2024 End: 08-21-2024 Patient encounter procedure 08/21/2024 10:00 AM EDT Office Visit [facility] [address] [address] Ken Quintanilla MD [address] [place] [phone] [facility] [place] Start: 08-14-2024 End: 08-14-2024 Patient encounter procedure 08/14/2024 10:00 AM EDT Office Visit Orthopedics Outpatient [facility] [address] [place] [phone] Shaila Walters PA-C 543 [place] [address] [facility] Start: 08-12-2024 End: 08-12-2024 Patient encounter procedure 08/12/2024 2:00 PM EDT Office Visit Division of Hematology & Oncology [address] [facility] [address] [phone] Starr Lino PA-C [address] [facility] [address] [address] Division of Hematology & Oncology Start: 07-10-2024 End: 07-10-2024 Patient encounter procedure 07/10/2024 10:00 AM EST Office Visit [facility] [address] [address] Ken Quintanilla MD 543 [place] [address] [facility] [place] Start: 07-08-2024 End: 07-08-2024 Patient encounter procedure 07/08/2024 9:00 AM EST Office Visit [facility] [address] [place] [phone] Josue Garcia MD [address] [place] [phone] [facility] Start: 06-19-2024 End: 06-19-2024 Patient encounter procedure 06/19/2024 10:00 AM EST Office Visit [facility] [address] [place] [phone] Josue Garcia MD [address] [place] [phone] [facility] Start: 05-21-2024 End: 05-21-2024 Patient encounter procedure 05/21/2024 10:40 AM EST Office Visit [facility] [address] [place] [phone] Shaila Walters PA-C [address] [place] [address] [place] [phone] [facility] Start: 05-06-2024 End: 05-06-2024 Arthrp kne condyle&platu medial&lat compartments ARTHROPLASTY KNEE TOTAL Primary osteoarthritis of left knee 05/06/2024 9:15 AM EST [facility] Start: 05-06-2024 End: 05-06-2024 Evaluation and management of inpatient 05/06/2024 9:15 AM EST - 05/06/2024 11:37 AM EST Surgery [facility] [address] [place] [address] Josue Garcia MD [address] [place] [phone] ARTHROPLASTY KNEE TOTAL [facility] Comment on above: ARTHROPLASTY KNEE TO LANI Start: 05-06-2024 Evaluation and management of inpatient 05/06/2024 6:15 AM EST Hospital Encounter [facility] [address] [place] [address] Josue Garcia MD [address] [place] [address] Primary osteoarthritis of left knee [facility] Comment on above: Primary osteoarthrit is of left knee Start: 04-25-2024 End: 04-25-2024 Telemedicine consultation with patient 04/25/2024 11:45 AM EST Telemedicine [facility] [address] [place] [phone] Shaila Walters PA-C [address] [facility] [place] [address] [place] [address] [facility] Start: 02-21-2024 End: 02-21-2024 Patient encounter procedure 02/21/2024 8:40 AM EDT Office Visit [facility] [address] [place] [phone] Josue Garcia MD [address] [facility] [address] [place] [phone] [facility] Start: 01-21-2024 Covid-19 Vaccine ( season) Covid-19 Vaccine ( season) [facility] Start: 01-21-2024 COVID-19 VACCINE ( season) COVID-19 VACCINE ( season) [facility] Start: 01-21-2024 Covid-19 Vaccine ( season) Covid-19 Vaccine ( season) [facility] Start: 01-21-2024 Influenza vaccination INFLUENZA VACC INE (#1) [facility] Start: 05-22-2023 Advance Directive Discussion Advance Directive Discussion [facility] Start: 03-24-2023 [facility] Start: 03-24-2023 Streptococcus pyogen es antigen assay Group A Streptococcus Rapid Screen [facility] Start: 03-09-2023 End: 03-09-2023 Patient encounter procedure 03/09/2023 7:30 AM EDT Office Visit [facility] Estela Simeon [address] [place] [phone] Lori Nguyễn, PAC [address]Rom[address] Simeon [address] [place] [phone] [facility] Start: 03-02-2023 End: 03-02-2023 Patient encounter procedure 03/02/2023 7:45 AM EDT Office Visit [facility] Estela Simeon [address] [place] [phone] Lori Nguyễn, PAC 283Rom[address] Simeon [address] [place] [phone] [facility] Start: 02-23-2023 End: 02-23-2023 Patient encounter procedure 02/23/2023 7:45 AM EDT Office Visit [facility] Estela Simeon [address] [place] [phone] Lori Nguyễn, PAC Estela Simeon [address] [place] [phone] [facility] Start: 01-20-2023 COVID-19 VACCINE () COVID-19 VACCINE () [facility] Start: 01-20-2023 Influenza vaccination INFLUENZA VACC INE (#1) [facility] Start: 07-17-2022 COVID-19 VACCINE (5 - Pfizer series) COVID-19 VACCINE (5 - Pfizer series) [facility] Start: 03-16-2021 Pneumococcal vaccination [facility] Start: 03-16-2021 Pneumococcal Vaccine : 65+ (2 of 2 - PCV) Pneumococcal Vaccine: 65+ (2 of 2 - PCV) [facility] Start: 01-20-2021 Influenza vaccination [facility] Start: 09-19-2019 ADVANCE DIRECTIVE DISCUSSION ADVANCE DIRECTIVE DISCUSSION [facility] Start: 09-19-2019 Fall risk assessment Falls Risk Asse ssment [facility] Start: 09-19-2019 PNEUMOVAX AGE 65 AND OVER WITH 5YR LOOKBACK (#1) PNEUMOVAX AGE 65 AND OVER WITH 5YR LOOKBACK (#1) [facility] Start: 2014 RSV VACCINE (1 - 1-d ose 60+ series) RSV VACCINE (1 - 1-dose 60+ series) [facility] Start: 2009 PROSTATE CANCER SCREENING DISCUSSION PROSTATE CANCER SCREENING DISCUSSION [facility] Start: 2009 Prostate specific antigen measurement PROSTATE CANCER SCREENING DISCUSSION [facility] Start: 2004 Administration of he rpes zoster vaccine Zoster Vaccines (1 of 2) [facility] Start: 2004 Prostate specific antigen measurement PROSTATE CANCER SCREENING DISCUSSION [facility] Start: 2004 Screening for malign ant neoplasm of colon [facility] Start: 2004 SHINGRIX VACCINE (1 of 2) SHINGRIX VACCINE (1 of 2) [facility] Start: 2004 Zoster vaccine hzv l paola for subcutaneous use ZOSTER (SHINGLES) VACCINE (1 of 2) [facility] Start: 09-19-1999 DIABETES SCREEN DIABETES SCREEN [facility] Start: 09-19-1999 Diabetes Screening Diabetes Screenin g [facility] Start: 09-19-1999 Screening for malign ant neoplasm of colon [facility] Start: 1994 Lipid panel LIPID SCREENING [facility] Start: 1994 Screening for malign ant neoplasm of colon [facility] Start: 1989 Lipid panel Lipid Screening [facility] Start: 1989 LIPID SCREEN LIPID SCREEN [facility] Start: 1973 Urine microalbumin profile DTAP,TDAP,TD (1 - Tdap) [facility] Start: 1972 Anxiety Screening Anxiety Screening [facility] Start: 1972 Depression Screening Depression Scre darci [facility] Start: 1972 Hepatitis C screening Hepatitis C [facility] Start: 1972 HEPATITIS C SCREENING HEPATITIS C [facility] Start: 1966 COVID-19 Vaccine (1) COVID-19 Vaccin e (1) [facility] Start: 1966 Depression screening using PHQ-9 (Patient Health Questionnaire 9) score [facility] Start: 1960 Pneumococcal Vaccine : Age 65+ (1 of 2 - PPSV23) Pneumococcal Vaccine: Age 65+ (1 of 2 - PPSV23) [facility] Start: 1957 History and physical examination, annual for health maintenance Wellness Visit [facility] Start: 1954 Hepatitis C screening HEPATITI S C VIRUS SCREENING [facility] Start: 1954 Prostate specific antigen measurement PSA Level [facility] Start: 1955 Tetanus vaccination Tetanus: Every 1 0yrs [facility] Start: 1955 US scan of abdominal aorta Abdominal Aortic Ultrasound [facility] Arthrp kne condyle&p latu medial&lat compartments ARTHROPLASTY KNEE TOTAL Primary osteoarthritis of left knee [facility] Cardiolipin IgG Ab [Units/volume] in Serum by Immunoassay [facility] Ecg routine ecg w/le ast 12 lds w/i&r CA ECG ROUTINE ECG W/LEAST 12 LDS W/I&R CA - OFFICE PERFORMED Routine Pre-operative examination for internal medicine Ordered: 04/23/2024 [facility] Comment on above: Ordered: 04/23/2024 Patient Education Self-Care for Sore Throats Torticollis ([place]) [facility] Work Phone: Patient referral [facility] Work Phone: End: 10-29-2024 RF Unspecified body region Views during surgery [facility] Comment on above: One Time for 1 Occur rences starting 10/29/2024 until 10/29/2024 Standard ECG ECG ECG Routine Preop exam for internal medicine 10/15/2024 11:12 AM EDT [facility] Immunizations Immunization Date Immunization Notes Care Provider Corey hernandes 03-16-2020 influenza virus vaccine, unspecified formulation Nora Glynn MD [facility] 02-19-2015 Influenza virus vaccine [facility] Payers Date Payer Category Payer Unknown [facility] [employer] [place] P[employer] [place] [employer] [id number] 2020-Present PPO [id number] 2020 Private Health Insurance [employer] Leandro MARMOLEJO AETNA [id number] 2020- [id number] [id number] 2019 Managed Care (unspecified) [employer] [id number] [id number] 2019 Unknown [id number]. 1.13.172. 2.7.3.038037.315 2016 Self-pay [id number] 2016 Unknown [id number] 2016 Unknown [id number] 2014 Unknown MMO MED MUTUAL S UPERMED PPO [id number] 2014-Present [id number] [id number]. 2.7.3.341297.315 1954 Unknown [id number] 2.840.1.134356.3.579. 2.594 1954 Unknown [id number] 2.840.1.545814.3.579. 2.594 1954 Unknown [id number] 2.840.1.379383.3.579. 2.594 1954 Unknown [id number] 2.840.1.354622.3.579. 2.594 1954 Unknown [id number] 2.840.1.790016.3.579. 2.594 1954 Unknown [id number] 2.840.1.412601.3.579. 2.594 1954 Unknown [id number] 2.840.1.169558.3.579. 2.594 1954 Unknown [id number] 2.840.1.863050.3.579. 2.594 1954 Unknown [id number] 2.840.1.900663.3.579. 2.594 1954 Unknown [id number] 2.840.1.552760.3.579. 2.594 1954 Unknown [id number] 2.840.1.364838.3.579. 2.594 1954 Unknown [id number] 2.840.1.030199.3.579. 2.594 1954 Unknown [id number] 2.840.1.892810.3.579. 2.594 1954 Unknown [id number] 2.840.1.978644.3.579. 2.594 1954 Unknown [id number] 2.840.1.065035.3.579. 2.594 1954 Unknown [id number] 2.16.840.1.161555.3.579. 2.594 1954 Unknown [id number] 2..840.1.944770.3.579. 2.594 1954 Unknown [id number] 2..840.1.724618.3.579. 2.594 1954 Unknown [id number] 2..840.1.852864.3.579. 2.594 1954 Unknown [id number] 2..840.1.122722.3.579. 2.594 1954 Unknown [id number] 2.840.1.771888.3.579. 2.594 1954 Unknown [id number] 2.840.1.004592.3.579. 2.594 1954 Unknown [id number] 2.840.1.007584.3.579. 2.594 1954 Unknown [id number] 2.840.1.487984.3.579. 2.594 1954 Unknown [id number] 2.840.1.791731.3.579. 2.594 1954 Unknown [id number] 2.840.1.128795.3.579. 2.594 Unknown [facility] DO NOT USE [id number] Unknown [id number] 2..840.1.650597.3.579. 2.462 Unknown [id number] 2..840.1.773508.3.579. 2.462 Unknown [id number] 2.16.840.1.806423.3.579. 2.462 Unknown [id number] 2.840.1.562050.3.579. 2.462 Unknown [id number] 2.16840.1.933932.3.579. 2.462 Unknown [id number] 2.840.1.004360.3.579. 2.462 Unknown [id number] 2.16.840.1.500851.3.579. 2.462 Unknown [id number] 2.840.1.274228.3.579. 2.462 Unknown [id number] 2.840.1.847443.3.579. 2.462 Unknown [id number] 2.840.1.405604.3.579. 2.462 Unknown [id number] 2.840.1.510793.3.579. 2.462 Unknown [id number] 2.840.1.887447.3.579. 2.462 Unknown [id number] 2.840.1.100082.3.579. 2.462 Unknown [id number] 2.840.1.337593.3.579. 2.462 Unknown [id number] 2.840.1.229278.3.579. 2.462 Unknown [id number] 2.840.1.885401.3.579. 2.462 Unknown [id number] 2.840.1.579103.3.579. 2.462 Unknown [id number] 2.840.1.140539.3.579. 2.462 Unknown [id number] 2.840.1.694176.3.579. 2.462 Unknown [id number] 2.840.1.114450.3.579. 2.462 Unknown [id number] 2.840.1.225939.3.579. 2.462 Unknown [id number] 2.840.1.398129.3.579. 2.462 Unknown [id number] 2.840.1.105906.3.579. 2.462 Unknown [id number] 2.16.840.1.360295.3.579. 2.462 Unknown [id number] 2.16.840.1.207251.3.579. 2.462 Social History Date Type Detail Facility Start: 09-13-2016 Tobacco smoking status NHIS Current every day smoker [facility] Start: 09-13-2016 End: 12-11-2024 Cigarettes smoked current (pack per day) - Reported [facility] Start: 09-13-2016 Alcohol intake Current drinker of alcohol (finding) [facility] Start: 1955 Sex Assigned At Not on file [facility] Start: 10-27-2020 End: 03-24-2023 Tobacco smoking status DCIS Unknown if ever smoked [facility] Start: 01-22-2020 Non-smoker [facility] Start: 1955 Sex Assigned At Male [facility] Start: 01-08-2013 End: 05-27-2024 Tobacco smoking status NHIS Never smoked tobacco [facility] Start: 01-08-2013 End: 12-24-2020 Tobacco use and exposure Smokeless tobacco non-user [facility] Start: 01-05-2023 End: 12-11-2024 Alcohol intake Current non-drinker of alcohol (finding) [facility] Start: 01-05-2023 End: 12-11-[address] [facility] Start: 04-23-2021 Gender identity Identifies as male gender (finding) [facility] Start: 02-11-2020 Sexual orientation Heterosexual (finding) [facility] Start: 10-28-2015 None [facility] Start: 10-28-2015 Spouse/ Significant Other [facility] Start: 12-24-2020 End: 04-03-2024 Alcoholic beverage intake Lifetime non-drinker (finding) [facility] Adult Depression Screening Assessment 1 [facility] Start: 06-24-2012 Sex Male (finding) [facility] Medical Equipment Procedure Code Equipment Code Equipment Origin al Text Equipment Identifier Dates Primary uncemented total hip replacement ACCOLADE II HIP STEM FDA Start: 04-18-2018 Primary uncemented total hip replacement BIOLOX CERAMIC FEMORAL HEAD FDA Start: 04-18-2018 Primary uncemented total hip replacement TRIDENT II ACETABULAR SHELL FDA Start: 04-18-2018 Primary uncemented total hip replacement TRIDENT POLYETHYLENE INSERT FDA Start: 04-18-2018 Primary uncemented total hip replacement ACCOLADE II HIP STEM FDA Start: 04-18-2018 Primary uncemented total hip replacement BIOLOX CERAMIC FEMORAL HEAD FDA Start: 04-18-2018 Primary uncemented total hip replacement TRIDENT II ACETABULAR SHELL FDA Start: 04-18-2018 Primary uncemented total hip replacement TRIDENT POLYETHYLENE INSERT FDA Start: 04-18-2018 Primary uncemented total hip replacement ACCOLADE II HIP STEM FDA Start: 04-18-2018 Primary uncemented total hip replacement BIOLOX CERAMIC FEMORAL HEAD FDA Start: 04-18-2018 Primary uncemented total hip replacement TRIDENT II ACETABULAR SHELL FDA Start: 04-18-2018 Primary uncemented total hip replacement TRIDENT POLYETHYLENE INSERT FDA Start: 04-18-2018 Primary uncemented total hip replacement ACCOLADE II HIP STEM FDA Start: 04-18-2018 Primary uncemented total hip replacement BIOLOX CERAMIC FEMORAL HEAD FDA Start: 04-18-2018 Primary uncemented total hip replacement TRIDENT II ACETABULAR SHELL FDA Start: 04-18-2018 Primary uncemented total hip replacement TRIDENT POLYETHYLENE INSERT FDA Start: 04-18-2018 Primary uncemented total hip replacement ACCOLADE II HIP STEM FDA Start: 04-18-2018 Primary uncemented total hip replacement BIOLOX CERAMIC FEMORAL HEAD FDA Start: 04-18-2018 Primary uncemented total hip replacement TRIDENT II ACETABULAR SHELL FDA Start: 04-18-2018 Primary uncemented total hip replacement TRIDENT POLYETHYLENE INSERT FDA Start: 04-18-2018 Primary uncemented total hip replacement ACCOLADE II HIP STEM FDA Start: 04-18-2018 Primary uncemented total hip replacement BIOLOX CERAMIC FEMORAL HEAD FDA Start: 04-18-2018 Primary uncemented total hip replacement TRIDENT II ACETABULAR SHELL FDA Start: 04-18-2018 Primary uncemented total hip replacement TRIDENT POLYETHYLENE INSERT FDA Start: 04-18-2018 Primary uncemented total hip replacement ACCOLADE II HIP STEM FDA Start: 04-18-2018 Primary uncemented total hip replacement BIOLOX CERAMIC FEMORAL HEAD FDA Start: 04-18-2018 Primary uncemented total hip replacement TRIDENT II ACETABULAR SHELL FDA Start: 04-18-2018 Primary uncemented total hip replacement TRIDENT POLYETHYLENE INSERT FDA Start: 04-18-2018 Pushlock Bio-Com posite 4.5 - [id number] Start: 12-29-2016 Swivelock Bio V 4.75x19.1 - [id number] Start: 02-24-2020 Swivelock Bio V 4.75x19.1 - [id number] Start: 12-29-2016 Distal Biceps Re pair Implant - [id number] Start: 02-24-2020 Swivelock Bio V 4.75x19.1 - [id number] Start: 02-24-2020 Swivelock Bio V 4.75x19.1 - [id number] Start: 02-24-2020 Bio-Comp Swvlk C 4.75x19.1mm - [id number] Start: 02-24-2020 Stem Femoral 5 Standard Amistem Titanium Niobium Trinidad Hip 18.435 - [id number] Start: 10-29-2024 Head Femoral 40m m /14 Small Mectacer Biolox Delta Hip - [id number] Start: 10-29-2024 Shell Acetabular 56mm Hip 2 Hole Mpact F Sterile - [id number] Start: 10-29-2024 Liner Acetabular 40mm F [place] Uhmwpe Flat Head Mpact Hip - [id number] Start: 10-29-2024 [id number] FDA Start: 05-20-2024 [id number] FDA Start: 05-20-2024 Clinical Notes 12-23-2020 to 12-11-2024 Starr Lino PA-C - 12/11/2024 3:00 PM Vitaly Wooten RN - 12/11/2024 3:00 PM EDTPatijaskaran Garcia MD - 12/11/2024 2:20 PM EDT Note Date & Type Note Facility 12-11-2024 History of Presen t illness Narrative Hematology Clinic Hemostasis and Thrombosis DISEASE HISTORY: 03/2015 PE, Unprovoked -History: Per patient, he was evaluated at OSH ( [place]) for an unprovoked PE. Per charrt review, under scanned outside records from 07/11/2024, patient had presented with pleuritic chest pain and SOB. Pt recalls being on Lovenox initially then transitioned to Xarelto for a total of 6 months. -Provoking Factors: prolonged travel >4h (-), immobilization (-), trauma (-), surgery (-), infection/inflammation (-) -Risk Factors: Tobacco (-), hormonal therapy (-), BMI>30 (?), Malignancy/Chemotherapy (-) 10/2015 L PE & LLE DVT -History: Per patient, he was found to have a L PE. Per charrt review, under scanned outside records from 07/11/2024, he was also found to have a LLE DVT. 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 Was discharged on Xarelto. 02/2024- Per patient, had presented with R hip pain. Pt was on Xarelto 10 mg daily at this time. Was found to have a R iliacus muscle bleed, and a torn muscle. Therefore Xarelto was stopped. 04/2024 LLE DVT -History: Per patient and chart review, pt had presented with back pain, and swelling of the lower extremities. Was found to have a L popliteal vein, L tibioperoneal trunk, L posterior tibial peroneal and L soleus vein. IVC filter was placed 05/20/2024, and pt was restarted on Xarelto. -Personal History of prior VTE: Denies VTE prior to 2014 -Family History of VTE: Father with VTE. Daughter with VTE in the setting of injury. -Anticoagulation: Xarelto 20 mg daily -Anticoagulation complications: 02/2024 R iliacus muscle bleed. Denies nosebleeds, blood in urine or stool. Denies increase in bruising or bleeding from minor cuts/injury. -Work up/Follow-up: Not available in current EMR Interval History: Patient was last seen in clinic via tele 10/2024. Presents at today's clinic appointment. Unfortunately unable to complete hypercoagulable panel. Pt reports he did just had appointment with his local vascular team at [place] ( Dr. Mcpherson ). At this time, there are no plans to remove the IVC filter especially prior to knee surgery scheduled for 02/11/2025. Patient is concerned about Xarelto cost when transitioning to Medicare later this year. Past Medical History: Diagnosis Date Chicken pox Deep vein thrombosis (DVT) 04/2024 left leg Factor II deficiency Gastroesophageal reflux GERD (gastroesophageal reflux disease) [place] measles screening History of seasonal allergies Hypertension Measles Mumps Pulmonary embolism x2 Past Surgical History: Procedure Laterality Date ARTHROPLASTY HIP TOTAL ANTERIOR APPROACH Right 10/29/2024 Laterality: Right; Surgeon: Josue Garcia MD; Location: [facility] PERIOP IVC FILTER PLACEMENT 04/2024 ARTHROSCOPY SHOULDER W/ ROTATOR CUFF REPAIR Left 02/24/2020 Laterality: Left; Surgeon: Seth Olvera MD; Location: [facility] ARTHROSCOPY SHOULDER W/ DEBRIDEMENT Left 02/24/2020 Laterality: Left; Surgeon: Seth Olvera MD; Location: [facility] ARTHROSCOPY SHOULDER W/ SUBACROMIAL DECOMPRESSION/ACROMIOPLASTY ADD-ON Left 02/24/2020 Laterality: Left; Surgeon: Seth Olvera MD; Location: [facility] RESECTION/TRANSPLANTATION BICEPS LONG TENDON Left 02/24/2020 Laterality: Left; Surgeon: Seth Olvera MD; Location: [facility] HIP REPLACEMENT Left 2017 Done in [place] ARTHROSCOPY SHOULDER W/ ROTATOR CUFF REPAIR Right [...] MCL recon ACL RECONSTRUCTION 1998 Right knee Family History Problem Relation Age of Onset Hypertension Father Cancer- Other Father brain Bleeding or Clotting Problems Father Hypertension Mother Neurologic Disease Mother cognitive problems, hydrocephalus Bleeding or Clotting Problems Daughter Bleeding or Clotting Problems Daughter Bleeding or Clotting Problems Daughter Aneurysm Neg Hx Myocardial Infarction Neg Hx Stroke Neg Hx Diabetes Neg Hx Heart Failure Neg Hx Dysrhythmia Neg Hx Social History Tobacco Use Smoking status: Never Smokeless tobacco: Never Vaping Use Vaping status: Never Used Substance Use Topics Alcohol use: No Drug use: No Review of Systems Constitutional: Negative for malaise/fatigue. HENT: Negative for nosebleeds. Cardiovascular: Negative for chest pain, dyspnea on exertion and leg swelling. Respiratory: Negative for hemoptysis and shortness of breath. Hematologic/Lymphatic: Does not bruise/bleed easily. Gastrointestinal: Negative for abdominal pain, hematemesis, hematochezia and melena. Genitourinary: Negative for hematuria. Deferred Outpatient Medications Prior to Visit Medication Sig Dispense Refill acetaminophen 500 MG tablet Take 2 tablets by mouth 3 times daily. Please start the evening of surgery 100 tablet 0 DISABILITY PLACARD Disability placard end date 10/30/2025 1 Each [address] DULox[address] Particles capsule DR Take 1 capsule by mouth daily. DULoxetine [address] Particles capsule DR Take 1 capsule by mouth daily every morning. Gabapentin 300 MG capsule Take 1 capsule by mouth 3 times daily. gabapentin 600 MG tablet Take 1 tablet by mouth 3 times daily. losartan 50 MG PO TABS Take 1 tablet by mouth daily every morning. magnesium oxide 400 MG tablet Take 1 tablet by mouth daily every morning. metoprolol 25 MG tab regular release Take 0.5 tablets by mouth daily every morning. omeprazole [address] Take 1 capsule by mouth daily every morning. Tamsulosin HCl 0.4 MG capsule Take 1 capsule by mouth daily with lunch. VITAMIN D PO Take 1 capsule by mouth daily every morning. XARELTO 20 MG Take 1 tablet by mouth daily every morning. Last dose 10/15/2024 AM oxyCODONE 5 MG tablet Take 1 tablet by mouth every 4 hours as needed for Severe Pain for up to 7 days. 42 tablet 0 No facility-administered medications prior to visit. PHYSICAL EXAM: Vitals: 12/11/24 1528 BP: 137/81 Pulse: 68 Temp: 97.6 degrees F (36.4 degrees C) TempSrc: Oral SpO2: 98% Weight: 89.1 kg (196 lb 6.4 oz) Height: 1.778 m (5' 10) Physical Exam Constitutional: General: He is not in acute distress. Appearance: Normal appearance. He is normal weight. He is not toxic-appearing. HENT: Head: Normocephalic and atraumatic. Eyes: Comments: EOMs intact to tracking examiner in room. Cardiovascular: Rate and Rhythm: Normal rate and regular rhythm. Heart sounds: Normal heart sounds. Pulmonary: Effort: Pulmonary effort is normal. Breath sounds: Normal breath sounds. Abdominal: General: There is no distension. Musculoskeletal: General: No swelling or tenderness. Skin: General: Skin is warm. Neurological: General: No focal deficit present. Mental Status: He is alert. Psychiatric: Mood and Affect: Mood normal. 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 May be considered for prophylactic dosing. Will pursue thrombophilia work up Continue Xarelto 20 mg daily with food Outside lab orders: Lupus Anticoagulant, Anticardiolipin Antibodies, Beta 2 Glycoprotein Antibodies, Antithrombin III, Protein C activity, Protein S activity and antigen, Factor 5 Leiden and Prothrombin mutation Instructed patient to hold Xarelto 2-3 days prior. Provided paper copy Will try to reach out to vascular team in [place] for recent notes. Telephone appointment to discuss lab results December 31 RTC 07/[address] Navarro. Pt will contact clinic for further VTE events, bleeding issues, upcoming procedures/surgeries. Starr Lino PA-C Hematology New sites of swelling or SOB? Denies Compliance with bloodthinners/affordable? Refills?: Complaint Any s/s of bleeding (blood in stool, new lightheadedness/fatigue)? Denies Any planned surgeries/procedures/dental work?: Knee replacement 02/11/25 documented in this encounter [facility] 12-11-2024 Instructions Eleuterio Faulkner RN - 12/11/2024 3:00 PM EDT Continue Xarelto 20 mg daily with food Will obtain hypercoagulable panel in the coming week or so, will hold Xarelto 2-3 days prior Telephone December 31 to discuss results Provider: Starr Lino PA-C Primary Nurse: Eleuterio Associate Nurse: Karis IMPORTANT: SURGICAL CLEARANCE: We MUST receive 2 WEEKS notice prior to any dental procedures, births, surgeries, and other procedures for Hematology clearance from our office. If you have not been seen by our office in over a year we cannot legally provide clearance. Failure to provide sufficient notice of at least two weeks prior may result in your surgery or procedure being delayed. Don't wait, communicate! Call [phone] and let our office know about what the procedure is for and where to send the clearance to as soon as you are aware. Thank you. Medication refills Please allow 1 week for all medication refills. You may request refills via [employer] or by calling [phone]. Paperwork Please allow 2 weeks to complete disability, FMLA, and insurance paperwork. Please clarify what to do once they are completed, including any fax numbers or addresses needed. [employer] is a secure way to get access to your labs online. Once you're online, you may need to send a message to the office to release results so that you can review the results of your blood tests. For non-emergent concerns, please send us a [employer] message but describe your issue fully. As an example, tell us how long you've had the symptom, what makes it better or worse, what you've done for it already) and one of our nurses or nurse practitioners will respond kayleigh. For questions or concerns regarding [employer] access or technical dificulties, please call [phone] or toll free at . Appointment's/ No show visits If you arrive late to your scheduled appointment, you may be asked to reschedule your visit. Please call [phone] at least 24 hours in advance if you are not able to make it to your scheduled visit. If you have three no show visit's within one year, you will be discharged from our practice. documented in this encounter [facility] 12-11-2024 History of Presen t illness Narrative Office Visit - [facility] Patient Name: Malvin Roblero Date of : 1955 Date of Visit: 12/11/24 Physician: Josue Garcia MD Reason for Visit: postop hip surgery History Malvin Roblero is approximately 6 weeks status-post right total hip arthroplasty. He is progressing appropriately as expected, and pain is well-controlled on the current regimen. Physical Exam Right hip: Gait: He walks without a limp, uses nothing for gait aid. Appearance: His incision is benign. There are no clinical signs of DVT. Range of Motion: painless. Neurovascular: Limb perfused. 5/5 strength in the tibialis anterior, gastroc-soleus, and EHL. Sensation Intact L4-S1. left Knee: Appearance - normal overlying skin, [...] valgus stress with a 2-3mm anterior drawer Neurovascular: 5/5 strength in the hip abductor, flexor, quadriceps, hamstrings, tibialis anterior, gastroc-soleus, and EHL Sensation Intact L4-S1 Vascular - no edema, well-perfused, brisk capillary refill, warm toes, no lymphadenopathy Imaging Radiographs taken today in the office reveal well-positioned Medacta hip implants without signs of periprosthetic fracture, subsidence, or shift. Reviewed prior knee xrays which demonstrate moderate to severe degenerative changes of the left knee. Assessment Approximately six weeks after hip surgery, progressing appropriately as expected. All questions were answered to his satisfaction. Plan 1. Continue outpatient PT as needed. 2. Continue analgesia as needed with NSAIDs. 3. No hip precautions 4. Follow-up at ~3 months postop, with new x-rays of the affected hip. 5. Dental prophylaxis: antibiotics are necessary for routine dental work. Severe left knee OA Malvin Roblero is a 68 y.o. male [...] injury, may need CPS poly Disposition: Ambulatory Nicky Garcia MD [employer] [facility] Orthopedic Surgery [facility] documented in this encounter [facility] 12-11-2024 Miscellaneous Notes Addended by: MONTSERRAT GREGORIO on: 12/11/2024 04:30 PM Modules accepted: Orders documented in this encounter [facility] 12-11-2024 Note Addended by: MONTSERRAT GREGORIO on: 12/11/2024 04:30 PM Modules accepted: Orders [facility] 12-03-2024 Evaluation note Diagnosis Onset Date Resolution History of recurrent deep vein thrombosis (DVT) acute December 03, 2024 8:20am Presence of IVC filter acute Ju 2024 8:20am Prothrombin gene mutation chronic December 03, 2024 8:20am [facility] Work Phone: 1(977) 782-853706-25-2025 History of Present illness Narrative* Starr Lino PA-C - 11/13/2024 3:15 PM EDT This telehealth visit is a real time audio/visual communication. During the scheduling process, this patient has verbally consented to the submission of Telehealth visits and the patient is aware of the risks, benefits, and possible coinsurance/copay costs. This visit is being conducted by real time phone, including > 10 minutes of medical discussion. Patient Location: Other Time to complete visit: 10 Minutes Hematology Clinic Hemostasis and Thrombosis DISEASE HISTORY: 03/2015 PE, Unprovoked -History: Per patient, he was evaluated at OSH ( [place]) for an unprovoked PE. Per liyah review, under scanned outside records from 07/11/2024, patient had presented with pleuritic chest pain and SOB. Pt recalls being on Lovenox initially then transitioned to Xarelto for a total of 6 months. -Provoking Factors: prolonged travel >4h (-), immobilization (-), trauma (-), surgery (-), infection/inflammation (-) -Risk Factors: Tobacco (-), hormonal therapy (-), BMI>30 (?), Malignancy/Chemotherapy (-) 10/2015 L PE & LLE DVT -History: Per patient, he was found to have a L PE. Per charrt review, under scanned outside records from 07/11/2024, he was also found to have a LLE DVT. 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 Was discharged on Xarelto. 02/2024- Per patient, had presented with R hip pain. Pt was on Xarelto 10 mg daily at this time. Was found to have a R iliacus muscle bleed, and a torn muscle. Therefore Xarelto was stopped. 04/2024 LLE DVT -History: Per patient and chart review, pt had presented with back pain, and swelling of the lower extremities. Was found to have a L popliteal vein, L tibioperoneal trunk, L posterior tibial peroneal and L soleus vein. IVC filter was placed 05/20/2024, and pt was restarted on Xarelto. -Personal History of prior VTE: Denies VTE prior to 2014 -Family History of VTE: Father with VTE. Daughter with VTE in the setting of injury. -Anticoagulation: Xarelto 20 mg daily -Anticoagulation complications: 02/2024 R iliacus muscle bleed. Denies nosebleeds, blood in urine or stool. Denies increase in bruising or bleeding from minor cuts/injury. -Work up/Follow-up: Not available in current EMR Interval History: Patient was last seen in clinic 07/2024. Today's appointment is via telephone to touch base with patient and have time to review OSH records. Pt had hip replacement 10/29/2024. Reports he did well from the VTE and bleeding perspective. Continues to have IVC filter placed, states he believes he is associated with a local vascular surgeon who is aware of the IVC filter not to be present more than one year. Pt likely will have another ortho surgery ~ January. Past Medical History: Diagnosis Date Chicken pox Deep vein thrombosis (DVT) 04/2024 left leg Factor II deficiency Gastroesophageal reflux GERD (gastroesophageal reflux disease) [place] measles screening History of seasonal allergies Hypertension Measles Mumps Pulmonary embolism x2 Past Surgical History: Procedure Laterality Date ARTHROPLASTY HIP TOTAL ANTERIOR APPROACH Right 10/29/2024 Laterality: Right; Surgeon: Josue Garcia MD; Location: [facility] PERIOP IVC FILTER PLACEMENT 04/2024 ARTHROSCOPY SHOULDER W/ ROTATOR CUFF REPAIR Left 02/24/2020 Laterality: Left; Surgeon: Seth Olvera MD; Location: [facility] ARTHROSCOPY SHOULDER W/ DEBRIDEMENT Left 02/24/2020 Laterality: Left; Surgeon: Seth Olvera MD; Location: [facility] ARTHROSCOPY SHOULDER W/ SUBACROMIAL DECOMPRESSION/ACROMIOPLASTY ADD-ON Left 02/24/2020 Laterality: Left; Surgeon: Seth Olvera MD; Location: [facility]IOP RESECTION/TRANSPLANTATION BICEPS LONG TENDON Left 02/24/2020 Laterality: Left; Surgeon: Seth Olvera MD; Location: [facility] HIP REPLACEMENT Left 2017 Done in [place] ARTHROSCOPY SHOULDER W/ ROTATOR CUFF REPAIR Right [...] MCL recon ACL RECONSTRUCTION 1998 Right knee Family History Problem Relation Age of Onset Hypertension Father Cancer- Other Father brain Bleeding or Clotting Problems Father Hypertension Mother Neurologic Disease Mother cognitive problems, hydrocephalus Bleeding or Clotting Problems Daughter Bleeding or Clotting Problems Daughter Bleeding or Clotting Problems Daughter Aneurysm Neg Hx Myocardial Infarction Neg Hx Stroke Neg Hx Diabetes Neg Hx Heart Failure Neg Hx Dysrhythmia Neg Hx Social History Tobacco Use Smoking status: Never Smokeless tobacco: Never Vaping Use Vaping status: Never Used Substance Use Topics Alcohol use: No Drug use: No ROS Deferred Outpatient Medications Prior to Visit Medication Sig Dispense Refill acetaminophen 500 MG tablet Take 2 tablets by mouth 3 times daily. Please start the evening of surgery 100 tablet 0 DISABILITY PLACARD Disability placard end date 10/30/2025 1 Each [address] DULox[address] Particles capsule DR Take 1 capsule by mouth daily. DULoxetine [address] Particles capsule DR Take 1 capsule by mouth daily every morning. Gabapentin 300 MG capsule Take 1 capsule by mouth 3 times daily. gabapentin 600 MG tablet Take 1 tablet by mouth 3 times daily. losartan 50 MG PO TABS Take 1 tablet by mouth daily every morning. magnesium oxide 400 MG tablet Take 1 tablet by mouth daily every morning. metoprolol 25 MG tab regular release Take 0.5 tablets by mouth daily every morning. omeprazole [address] Take 1 capsule by mouth daily every morning. oxyCODONE 5 MG tablet Take 1 tablet by mouth every 4 hours as needed for Severe Pain for up to 7 days. 42 tablet 0 Senna 8.6 MG tablet Take 2 tablets by mouth daily. 60 tablet 0 Tamsulosin HCl 0.4 MG capsule Take 1 capsule by mouth daily with lunch. VITAMIN D PO Take 1 capsule by mouth daily every morning. XARELTO 20 MG Take 1 tablet by mouth daily every morning. Last dose 10/15/2024 AM No facility-administered medications prior to visit. PHYSICAL EXAM: There were no vitals filed for this visit. Physical Exam Deferred ASSESSMENT AND PLAN: 69 yo M with recurrent VTE, therefore at this time guidelines recommend long-term anticoagulation until risks outweigh the benefits. May be considered for prophylactic dosing. Will pursue thrombophilia work up Continue Xarelto 20 mg daily with food Outside lab orders: Lupus Anticoagulant, Anticardiolipin Antibodies, Beta 2 Glycoprotein Antibodies, Antithrombin III, Protein C activity, Protein S activity and antigen, Factor 5 Leiden and Prothrombin mutation Will send labs via [employer] [facility] and instructions to hold Xarelto 2-3 days prior. Encouraged patient to reach out to local vascular team about IVC filter. RTC 12/11/2022 at 3pm. Pt will contact clinic for further VTE events, bleeding issues, upcoming procedures/surgeries. Starr Lino PA-C Hematology * Eleuterio Faulkner RN - 11/13/2024 3:15 PM EDT Patient is here for follow -up visit for documented in this encounter[facility] [place] Instructions* Patient Instructions* Eleuterio Faulkner RN - 11/13/2024 3:15 PM EDT Hypercoagulable work up Continue Xarelto RTC 12/11/2024 at 3pm Provider: Starr Lino PA-C Primary Nurse: Eleuterio Associate Nurse: IMPORTANT: SURGICAL CLEARANCE: We MUST receive 2 WEEKS notice prior to any dental procedures, births, surgeries, and other procedures for Hematology clearance from our office. If you have not been seen by our office in over a yearwe cannot legally provide clearance. Failure to provide sufficient notice of at least two weeks prior may result in your surgery or procedure being delayed. Don't wait, communicate! Call [phone] let our office know about what the procedure is for and where to send the clearance to as soon as you are aware. Thank you. Medication refills Please allow 1 week for all medication refills. You may request refills via [employer] [facility] or by calling [phone]. Paperwork Please allow 2 weeks to complete disability, FMLA, and insurance paperwork. Please clarify what to do once they are completed, including any fax numbers or addresses needed. [employer] is a secure way to get access to your labs online. Once you're online, you may need to send a message to the office to release results so that you can review the results of your blood tests. For non-emergent concerns, please send us a [employer] message but describe your issue fully. As an example, tell us how long you've had the symptom, what makes it better or worse, what you've done for it already) and one of our nurses or nurse practitioners will respond kayleigh. For questions or concerns regarding [employer] access or technical dificulties, please call [phone] or toll free at . Appointment's/ No show visits If you arrive late to your scheduled appointment, you may be asked to reschedule your visit. Pleasecall [phone] at least 24 hours in advance if you are not able to make it to your scheduled visit. If you have three no show visit's within one year, you will be discharged from our practice. documented in this encounterU [facility] History of Present illness Narrative* Pati Horton MA - 11/13/2024 9:40 AM EDT HPI: 69 y.o. male status post right total hip arthroplasty approximately 2 week(s) ago with Dr. Garcia. Overall the patient is progressing. he is ambulating on their own/with the assistance of a walker. There were no complaints of wound drainage, erythema, or wound dehiscence. The patient is overallpleased with his reconstruction. he has not completed their anticoagulation/is currently taking xarelto for VTE prophylaxis. They are currently taking Tylenol for pain medication. * Shaila Walters PA-C - 11/13/2024 9:40 AM EDT HPI: 69 y.o. male status post right total hip arthroplasty approximately 2 week(s) ago with Dr. Garcia. Overall the patient is progressing. he is ambulating on their own/with the assistance of a walker. There were no complaints of wound drainage, erythema, or wound dehiscence. The patient is overallpleased with his reconstruction. he has not completed their anticoagulation/is currently taking Xarelto for VTE prophylaxis. They are currently taking Tylenol for pain medication. Physical exam: A./O. x3 in no apparent distress. The patient's gait shows a mild limp with a decreased stance phase on the operative extremity. The incision is clean, dry, intact, and has no signs of any redness orskin breakdown. The patient has flexion to 90 degrees with no pain. No pain with leg roll of hip. The overall alignment of the extremity is neutral. Negative Gavino sign. X-ray interpretation: Prior xrays reviewed. None taken today. Assessment and plan: This is a 69 y.o. male status post right total hip arthroplasty. 1. Continue home therapy program, Outpatient PT script given to patient, maintain anterior precautions until 6 weeks post op 2. Pain control- Tylenol 3. Continue Xarelto 4. Discussed activities to continue and avoid, recommend increasing as tolerated. 5. We discussed local wound care of showers only, soap and water can run over the incision. We discussed not using any soaps/lotions on the incision until we see them back in a month. 6. It is safe to drive when you are 6 weeks post op for right and 2 weeks on left. You must be off all narcotic pain medication. You must practice moving your foot from gas to brake and be able to slam on the break in case of emergency. If you feel comfortable doing that then you can try driving short distances or in a parking lot. 7.Follow up in 1 month with xrays and appointment. Patient understands to call our office with any questions or concerns. documented in this encounterSelect [facility] [place] Nurse Note* Nursing Notes - Teodora Arrington RN - 10/29/2024 3:23 PM EDT 1330: Reviewed AVS with patient and family. Also reviewed anterior hip precautions. All questions answered. 1345- Patient dangled on edge of bed. He stood with the walker, felt unsteady and lightheaded, assisted to sit down in the chair. 1430- Patient states readiness to walk to the bathroom. Nurse standby assist x2 with walker and gaitbelt to bathroom. Unable to void at this time. Patient then was safely able to complete the stairs.Assisted to the chair and resting comfortably. 1503- Patient continues to deny the urge to void. After discussion with anesthesia the patient's home dose of Flomax was ordered and given. 1520- Bladder scan completed. Cruz SINGH at bedside and aware of result. [facility] [place]06-10-[facility]25 Miscellaneous Notes* Nursing Notes - Teodora Arrington RN - 10/29/2024 3:23 PM EDT 1330: Reviewed AVS with patient and family. Also reviewed anterior hip precautions. All questions answered. 1345- Patient dangled on edge of bed. He stood with the walker, felt unsteady and lightheaded, assisted to sit down in the chair. 1430- Patient states readiness to walk to the bathroom. Nurse standby assist x2 with walker and gaitbelt to bathroom. Unable to void at this time. Patient then was safely able to complete the stairs.Assisted to the chair and resting comfortably. 1503- Patient continues to deny the urge to void. After discussion with anesthesia the patient's home dose of Flomax was ordered and given. 1520- Bladder scan completed. Cruz SINGH at bedside and aware of result. * Nursing Notes - Ondina Hansen RN - 10/29/2024 12:49 PM EDT 1145: Xray at bedside. 1230: Patient's pain is well controlled and vital signs returned to baseline. Offered to help patient get up to the chair. Patient states he is not ready to get out of bed yet d/t feeling too drowsy.Encouraged pt to rest and made a plan to get up after getting his family members back and reviewingthe discharge instructions. 1408: Received clarification from FRANCISCO Magallon. Patient to restart home xarelto tonight and remove his dressing POD14. Patient and family updated and verbalize understanding. 1530: Patient able to void 100ml clear yellow urine without difficulty. Cruz SINGH aware. Okay for discharge. Patient states readiness for discharge. 1540: PIV removed and gauze applied. Monitor discontinued. Patient assisted to get dressed. 1556: Patient discharged in stable condition via wheelchair to private vehicle. * Op Note - Josue Garcia MD - 10/29/2024 11:20 AM EDT Operative Report - [facility] Patient Name: Malvin Roblero Date of : 1955 Date of Surgery: 10/29/24 Attending Surgeon: Josue Garcia MD Surgical Staff and Assistants: Applications Development Analyst: Harjeet Borges RN Physician Twisting Department End Finder: Shaila Walters PA-C Relief Scrub: Pippa Romeo Scrub Person: Ashly Adam Fellow: Jake Espinoza DO Operative Diagnoses: right hip degenerative joint disease Pre-Op Diagnosis Codes: * Right hip pain [M25.551] Post-Op Diagnosis Codes: * Right hip pain [M25.551] Operation: right total hip arthroplasty (CPT 97029). * RTHA DAA: 37167 (CPT ) Implants: Faraz - Acetabulum: 56mm Mpact 2 hole - Liner: neutral size F 40mm - Stem: AMIS size 5 std - Head: 40mm -4mm Biolox Delta Ceramic (12/14 taper) Anesthesiologist: Anesthesiologist: Malvin Dunn DO Hydrographer: LING Arguello Anesthesia Type: General General EBL: 300mL Blood & Blood Products: (none) Drains: none Complications: None. Specimens: None. Indications: Malvin Roblero is a 69 y.o. male and has advanced arthrosis of the affected hip who was indicatedfor hip replacement due to severe pain and a failure of nonoperative modalities as documented in the preoperative note. he understood the risks, benefits and alternatives to surgical management, and opted to proceed with the elective procedure. Description of the Procedure: When OR time was available and he was medically optimized, he was brought to the preoperative holding area where the operative site was marked. The patient was taken back into the operating room where appropriate anesthesia and preoperative antibiotics were administered. The hip was positioned, prepped and draped in the typical sterile fashion. A surgical time-out was called verifying the patient, position, laterality, procedure. A supine, direct anterior approach to hip was utilized with oblique, bikini- style incision. The TFLfascia was incised and the tensor muscle was retracted laterally. Care was taken to avoid major branches of the lateral femoral cutaneous nerve. Ascending branches of the lateral femoral circumflex artery were identified and individually coagulated, to allow exposure of the anterior capsule. The indirect head of the rectus tendon was identified and preserved. An anterior capsulotomy was performed in an inverted T-type fashion. A limited medial capsular release was performed to preserve as much stability to the skull valley hip joint as possible. Medial and lateral capsular limbs were tagged with #2 non-absorbable, braided suture. The neck cutwas then made with a narrow oscillating saw at the pre- templated level. The head and neck was then removed, and anterior and posterior retractors were positioned allowing exposure of the acetabulum. The labrum and pulvinar tissues were removed. The acetabulum was reamed under fluoroscopic guidance with a single reamer 1mm below the final size, and then the appropriate acetabular shell was opened and impacted into place in the proper abduction and version. Positioning was confirmed fluoroscopically. The shell had an excellent press fit. The liner was then impacted to engage the locking mechanism. Attention was then turned to the femur. The femur was prepared with a release of the internus and aflip of the piriformis tendon. This allowed excellent visualization of the intramedullary canal. The canal was opened and broached to appropriate size. A trial reduction was performed. The hip was stable through a full range of motion with judaism of length and offset. Fluoroscopic imaging was used to confirm appropriate component positioning and sizing prior to opening the final components. The hip was then dislocated, and the trial components were removed. The final stem was impacted intoplace until it reached the appropriate depth, a final trial reduction was performed to confirm optimal stability and leg length. The plastic trial head was then exchanged for the final head, which was impacted onto the cleaned and dried trunnion. The final construct was reduced. The wound was irrigated with a dilute Betadine lavage followed by antibiotic irrigation. Final fluoroscopic images were captured in multiple planes. The periarticular cocktail injection was infiltrated into the soft tissues. The wound was then closed in layers using the previously-placed sutures for the arthrotomy, followed by three layers of absorbable barbed monofilament suture for the fascia, subcutaneous tissue, and skin. A sterile Silverlon dressing was applied. The patient tolerated the procedure well without complication, and was transported to the recovery room in stable condition. I was present for all critical portions of the procedure. Postoperative Plan: Weightbearing Precautions: none Hip Precautions: anterior hip precautions Incision Management: dressing to remain on until first postoperative visit VTE prophylaxis: resume home xarelto dosing * Plan of Care - Shaila Walters PA-C - 10/29/2024 11:16 AM EDT Orthopaedic Plan of Care Note POD #0 s/p Right KEYA Activity: PT/OT, anterior hip precautions Weight Bearing Status: Weight Bearing As Tolerated Pain: Multimodal Diet: Regular Abx: Ancef Cultures: none Dressing: silverlon, change POD14 Imaging: pending DVT Ppx: SCDs, Resume Xarelto Dispo: Pending PT/OT, clinical course Follow up: with QUANG in 1-2 week(s) Shaila Walters PA-C Orthopedic Surgery - Adult Reconstruction Department of Orthopaedics [facility] documented in this encounterOSU [facility] Nurse Note* Nursing Notes - Ondina Hansen RN - 10/29/2024 12:49 PM EDT 1145: Xray at bedside. 1230: Patient's pain is well controlled and vital signs returned to baseline. Offered to help patient get up to the chair. Patient states he is not ready to get out of bed yet d/t feeling too drowsy.Encouraged pt to rest and made a plan to get up after getting his family members back and reviewingthe discharge instructions. 1408: Received clarification from FRANCISCO Magallon. Patient to restart home xarelto tonight and remove his dressing POD14. Patient and family updated and verbalize understanding. 1530: Patient able to void 100ml clear yellow urine without difficulty. Cruz SINGH aware. Okay for discharge. Patient states readiness for discharge. 1540: PIV removed and gauze applied. Monitor discontinued. Patient assisted to get dressed. 1556: Patient discharged in stable condition via wheelchair to private vehicle. [facility] [place]06-[facility] History of Present illness Narrative* Cruz Mistry III, RUG SHAMPOOER-SEVERITY OF ILLNESS COORDINATOR - 10/29/2024 12:02 PM EDT Extended Recovery Progress Note Surgeon: Josue Garcia MD Summary: Malvin Roblero is a 69 y.o. male who is * Day of Surgery * s/p Right Total Hip Arthroplasty,DAA. Postoperative Diagnosis: Right hip pain; Right hip osteoarthritis EBL: 300 cc. Received 2 grams tranexamic acid (TXA) intraoperatively. Lab Results Component Value Date HGB 16.0 10/15/2024 Post-operative care: Pain (ERAS): Pain controlled on current regimen. Continue:, acetaminophen, fentanyl, oxycodone , gabapentin Respiratory: No supplemental oxygen required / room air. FEN/GI: IV fluids at 75 cc / hr. Patient denies nausea. Discontinue IVF once taking diet and advance diet as tolerated. : No indwelling urethral catheter ([place] catheter). and Voided spontaneously. Dressing: Silverlon dressing and ice pack to Right hip Imaging: XR Right hip completed. Activity: PT/OT; Weight bearing as tolerated. Anterior hip precautions. Ambulation: Plan for patient to ambulate with assistance and complete stair assessment prior to discharge. DVT prophylaxis: Resume home rivaroxaban. ABX therapy at discharge: None Medical co-morbidities: Past Medical History: Diagnosis Date Chicken pox Deep vein thrombosis (DVT) 04/2024 left leg Factor II deficiency Gastroesophageal reflux GERD (gastroesophageal reflux disease) [place] measles screening History of seasonal allergies Hypertension Measles Mumps Pulmonary embolism x2 Current Outpatient Medications Medication Instructions acetaminophen (TYLENOL) 1,000 mg, Oral, 3 TIMES DAILY, Please start the evening of surgery DULoxetine (CYMBALTA) 30 mg, DAILY DULoxetine [address] Particles capsule DR 1 capsule, DAILY EVERY MORNING Gabapentin (NEURONTIN) 300 mg, Oral, 3 TIMES DAILY gabapentin 600 MG tablet 1 tablet, 3 TIMES DAILY losartan 50 MG PO TABS 1 tablet, DAILY EVERY MORNING magnesium oxide (MAG-OX) 400 mg, DAILY EVERY MORNING metoprolol 25 MG tab regular release 0.5 tablets, DAILY EVERY MORNING omeprazole (PRILOSEC) 40 mg, DAILY EVERY MORNING oxyCODONE (ROXICODONE) 5-10 mg, Oral, EVERY 4 HOURS NEEDED, Please start the evening of surgery Senna (SENOKOT) 17.2 mg, Oral, DAILY Tamsulosin HCl 0.4 MG capsule 1 capsule, DAILY WITH LUNCH VITAMIN D PO 1 capsule, DAILY EVERY MORNING Xarelto 20 mg, DAILY EVERY MORNING Allergies: Allergies Allergen Reactions Cyclobenzaprine throat swelling Ketorolac Tromethamine Swelling Meloxicam Swelling Orphenadrine Swelling Penicillin G Rash Triamcinolone Swelling Disposition: Completed criteria for discharge specified by the Primary service., Patient dischargedto home. Physical Exam Vitals and nursing note reviewed. Constitutional: General: He is not in acute distress. Appearance: He is not ill-appearing. Cardiovascular: Rate and Rhythm: Normal rate and regular rhythm. Pulses: Normal pulses. Pulmonary: Effort: Pulmonary effort is normal. No respiratory distress. Breath sounds: No wheezing. Comments: O2 Sat (%): 95 % (10/29 1145) O2 Device: room air (10/29 114) Abdominal: General: There is no distension. Palpations: Abdomen is soft. Tenderness: There is no abdominal tenderness. Musculoskeletal: Comments: POD # 0 s/p Right KEYA. Silverlon dressing and ice pack in place. 1+ edema. No erythema, no hematoma. Gluteal / quad strength 3/5. Dorsi / plantar flexion 4/5 to Right leg. Sensation intact to bilateral LE. Skin: General: Skin is warm and dry. Capillary Refill: Capillary refill takes less than 2 seconds. Neurological: Mental Status: He is alert and oriented to person, place, and time. MAR Anders III Pager [phone] Extended Recovery Unit documented in this encounterOSU [facility] Surgery Postoperative evaluation and management note* Op Note - Josue Garcia MD - 10/29/2024 11:20 AM EDT Operative Report - [facility] Patient Name: Malvin Roblero Date of : 1955 Date of Surgery: 10/29/24 Attending Surgeon: Josue Garcia MD Surgical Staff and Assistants: Applications Development Analyst: Harjeet Borges RN Physician Twisting Department End Finder: Shaila Walters PA-C Relief Scrub: Pippa Romeo Scrub Person: Ashly Adam Fellow: Jake Espinoza DO Operative Diagnoses: right hip degenerative joint disease Pre-Op Diagnosis Codes: * Right hip pain [M25.551] Post-Op Diagnosis Codes: * Right hip pain [M25.551] Operation: right total hip arthroplasty (CPT 97893). * RTHA DAA: 59283 (CPT ) Implants: Faraz - Acetabulum: 56mm Mpact 2 hole - Liner: neutral size F 40mm - Stem: AMIS size 5 std - Head: 40mm -4mm Biolox Delta Ceramic (12/14 taper) Anesthesiologist: Anesthesiologist: Malvin Dunn DO Hydrographer: LING Arguello Anesthesia Type: General General EBL: 300mL Blood & Blood Products: (none) Drains: none Complications: None. Specimens: None. Indications: Malvin Roblero is a 69 y.o. male and has advanced arthrosis of the affected hip who was indicatedfor hip replacement due to severe pain and a failure of nonoperative modalities as documented in the preoperative note. he understood the risks, benefits and alternatives to surgical management, and opted to proceed with the elective procedure. Description of the Procedure: When OR time was available and he was medically optimized, he was brought to the preoperative holding area where the operative site was marked. The patient was taken back into the operating room where appropriate anesthesia and preoperative antibiotics were administered. The hip was positioned, prepped and draped in the typical sterile fashion. A surgical time-out was called verifying the patient, position, laterality, procedure. A supine, direct anterior approach to hip was utilized with oblique, bikini- style incision. The TFLfascia was incised and the tensor muscle was retracted laterally. Care was taken to avoid major branches of the lateral femoral cutaneous nerve. Ascending branches of the lateral femoral circumflex artery were identified and individually coagulated, to allow exposure of the anterior capsule. The indirect head of the rectus tendon was identified and preserved. An anterior capsulotomy was performed in an inverted T-type fashion. A limited medial capsular release was performed to preserve as much stability to the skull valley hip joint as possible. Medial and lateral capsular limbs were tagged with #2 non-absorbable, braided suture. The neck cutwas then made with a narrow oscillating saw at the pre- templated level. The head and neck was then removed, and anterior and posterior retractors were positioned allowing exposure of the acetabulum. The labrum and pulvinar tissues were removed. The acetabulum was reamed under fluoroscopic guidance with a single reamer 1mm below the final size, and then the appropriate acetabular shell was opened and impacted into place in the proper abduction and version. Positioning was confirmed fluoroscopically. The shell had an excellent press fit. The liner was then impacted to engage the locking mechanism. Attention was then turned to the femur. The femur was prepared with a release of the internus and aflip of the piriformis tendon. This allowed excellent visualization of the intramedullary canal. The canal was opened and broached to appropriate size. A trial reduction was performed. The hip was stable through a full range of motion with judaism of length and offset. Fluoroscopic imaging was used to confirm appropriate component positioning and sizing prior to opening the final components. The hip was then dislocated, and the trial components were removed. The final stem was impacted intoplace until it reached the appropriate depth, a final trial reduction was performed to confirm optimal stability and leg length. The plastic trial head was then exchanged for the final head, which was impacted onto the cleaned and dried trunnion. The final construct was reduced. The wound was irrigated with a dilute Betadine lavage followed by antibiotic irrigation. Final fluoroscopic images were captured in multiple planes. The periarticular cocktail injection was infiltrated into the soft tissues. The wound was then closed in layers using the previously-placed sutures for the arthrotomy, followed by three layers of absorbable barbed monofilament suture for the fascia, subcutaneous tissue, and skin. A sterile Silverlon dressing was applied. The patient tolerated the procedure well without complication, and was transported to the recovery room in stable condition. I was present for all critical portions of the procedure. Postoperative Plan: Weightbearing Precautions: none Hip Precautions: anterior hip precautions Incision Management: dressing to remain on until first postoperative visit VTE prophylaxis: resume home xarelto dosing [facility] [place]06-10-2025 Plan of care note* Plan of Care - Shaila Walters PA-C - 10/29/2024 11:16 AM EDT Orthopaedic Plan of Care Note POD #0 s/p Right KEYA Activity: PT/OT, anterior hip precautions Weight Bearing Status: Weight Bearing As Tolerated Pain: Multimodal Diet: Regular Abx: Ancef Cultures: none Dressing: silverlon, change POD14 Imaging: pending DVT Ppx: SCDs, Resume Xarelto Dispo: Pending PT/OT, clinical course Follow up: with [facility]ANG in 1-2 week(s) Shaila Walters PA-C Orthopedic Surgery - Adult Reconstruction Department of Orthopaedics [facility] [place]06-10-2025 Hospital Discharge instructions* Discharge Instructions* Jake Espinoza DO - 10/29/2024 8:55 AM EDT Recovery after Joint Replacement Surgery [facility] [facility] ? In the first 1-2 weeks after a joint replacement, it is normal to have more pain, swelling, and redness than were present before surgery. Please follow these instructions to limit the symptoms during the first two weeks: ? Ice: please apply ice to joint keeping a towel in between the ice and your skin. It is ok to ice 30 min at a time and then take 30 min break. It is ok to use heat immediately before you exercise orwalk. ? Elevation: please always have the leg elevated on a recliner or footrest while resting. The leg should be at the level of your waist or higher. ? Medication: please take the medication as prescribed o If prescribed Tylenol and Celebrex (or Meloxicam), please take these around the clock for at least two weeks, but in most cases I recommend taking for 4-6 weeks o Most patients will need Oxycodone (or [place]) every four hours for the first 1- 2 weeks o Some patients will also be prescribed a muscle spasm relaxer (Cyclobenzaprine) to take as needed o Pain Meds are prescribed for 5-7 days at a time, so call on the day before the refill is needed. Please try to call before 3 pm so the prescription can be refilled before the next workday. o Refills are prescribed Monday through Monday. We are unable to prescribe on weekends and holidays. If your prescription will run out on the weekend, please call on a Monday. ? May shower with white Silverlon bandage but must only allow small amount of water on bandage. Patient should remove bandage 7 days after surgery. After removing bandage, if there is drainage from the incision then please contact the Doctor. May continue to shower after removing the bandage if incision clean, dry, and without drainage. Most incisions are closed with skin glue which will appear shiny and can sometimes stick to clothing. Please cover as needed to prevent irritation. Do not take a bath or submerge incision in pool until 6 weeks after surgery. Do not apply any cream or lotion tothe incision until discussed with surgeon. ? Exercise: Please perform quad sets, ankle pumps, and gluteal squeezes every hour while awake. Incorporate other exercises if given by our physical therapist. Try to take a short 50ft walk every couple hours during the first week. Do not walk long distance outside the house the first week after surgery. Patients can begin walking outside home the second week after surgery. Patients undergoing hip surgery should avoid crossing their legs. ? If prescriptions do not help constipation, then please try over the counter medicine such as Miralax, Milk of Magnesia, or Fleet Enema 5 to 7 days after surgery. ? If sleeping is difficult after surgery, please try taking over the counter Benadryl 25mg prior tobedtime. Taking a dose of Oxycodone or Cyclobenzaprine can also help but should not be taken at thesame time. Patient may sleep on side but recommend placing a pillow in between legs. ? Numbness around the incision is normal and will take a few months to improve. ? Clicking after a knee replacement is normal since the replacement is metal and plastic. Clicking will decrease with time and physical therapy. ? Please take Aspirin, Eliquis, or Lovenox as prescribed to prevent blood clot after surgery. Also perform ankle pump exercises. ? Nutrition is important for healing after surgery. Please try to eat a balanced diet with high protein. ? Return to driving usually occurs within 2-6 weeks after surgery. Driving may resume once patient is off Oxycodone/[place] pain medication and patient is comfortable lifting leg to hit brake pedal. ? Patient is released from work for up to 12 weeks after surgery. Some patients may return to work as early as 2 weeks after surgery for desk work. In the event of a medical emergency please call 911 to be further evaluated and possibly transported to local hospital for evaluation Contact our office via [employer] online application. Or call [phone] to leave a message and we will return call as soon as we can. [facility] [place] Attending History and physical note* Jake Espinoza DO - 10/29/2024 8:53 AM EDT I have examined the patient and reviewed the previous H&P completed on date 10/15/24 and there are no changes. Jake Espinoza DO, 10/29/2024, 8:53 AM. Cosigned by Josue Garcia MD at 10/29/2024 9:15 AM EDT Source Note - Cecelia Wright PA-C - 10/15/2024 11:00 AM EDT Images from the original note were not included. PREOPERATIVE ASSESSMENT H[facility] Name: Malvin Roblero Date of Surgery: 10/29/2024 Surgeon: Josue Garcia Pre-Op Diagnosis: Right Hip Pain Planned Procedure: RTHA DAA - Right Anesthesia Type: planned for general anesthesia SUMMARY AND RECOMMENDATIONS The patient is medically optimized at the time of this visit. Strict NPO Diet recommended. Malvin Roblero is a 69 y.o. year old patient with a history the following diagnoses which increase his risk for perioperative complications. he being referred for pre operative evaluation and optimization. The relative status of the medical conditions are further explained in this note. 1. Preop exam for internal medicine 2. Chronic right hip pain 3. Gastroesophageal reflux disease without esophagitis 4. Essential hypertension ANESTHESIA and AIRWAY Anesthesia alerts: ERAS, Prolonged postop somnolence Personal history of problems related to anesthesia (ex.Malignant Hyperthermia): No prolonged postoperative somnolence, no malignant hyperthermia, no issue w/IV and no PONV Family History of problems related to anesthesia (ex.Malignant Hyperthermia: no Pacer/AICD: no Nerve stimulators (DBS, PNS, SCS): no Parenteral Access: no Glaucoma: no JESUS: no STOP-BANG Risk Assessment Do you snore - Yes Are you frequently tired during the day? - No Have you been observed gasping or choking while asleep? - No Do you have high blood pressure? - Yes Age more than 50? - Yes Gender male? - Yes Neck circumference greater than 40 cm? - No Neck Circumference (cm): 30.48 BMI more then 35? - No Body mass index is 27.26 kg/m . Mallampati class - 2 TM Distance - 3 FB Oral Opening - 3 FB Teeth - normal dentition for age Cervical range of motion - within normal limits Neck circumference - Neck Circumference (cm): 31.75 Body mass index is 27.26 kg/m . Allergies and adverse drug reactions Allergies Allergen Reactions Cyclobenzaprine throat swelling Ketorolac Tromethamine Swelling Meloxicam Swelling Orphenadrine Swelling Penicillin G Rash Triamcinolone Swelling ANESTHESIA/AIRWAY ASSESSMENT AND PLAN- # Anesthesia Alerts as above if applicable # Patient is at Intermediate (3-4) risk for JESUS vs Patient has JESUS # Previous Airway Details below (if available) Intubation Airway not difficult General Information and Staff Patient location during procedure: OR Room: Indications and Patient Condition Indications for airway management: general anesthesia Spontaneous ventilation: present Sedation level: general anesthesia Preoxygenated: yes Patient position: supine Manual Inline Stabilization not maintained throughout Mask difficulty assessment: 1 - vent by mask Final Airway Details Final airway type: supraglottic airway Successful airway: LMA Size 4 Placement verified by: auscultation and CO2 detection Tube Secured with: tape Number of attempts at approach: 1 Additional Comments Atraumatic LMA placement. No complications. CARDIOVASCULAR Do you take Aspirin or other antiplatelet agents? no Do you take anti-coagulations? yes - xarelto Beta Eliot: no Patient denies a history of cardiac events or [place]. Denies chest pain, palpitation or worsening SOB over the last few months ASSESSMENT AND PLAN- Essential HTN -managed on losartan and metoprolol -appears controlled BP Readings from Last 3 Encounters: 10/15/24 122/75 08/21/24 119/87 08/12/24 116/70 # Functional status - METS: Moderate: 4-7 METS functional status. 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 (Able to stand and pivot) # Pre-operative Risk Evaluation: Patient Meets the Following RCRI Criteria (RCRI): None: 0 criteria suggesting a 3.9% risk of major cardiac events or within 30 days. Malvin Roblero is at a Low risk based on the RCRI above. Patient can achieve METS > 4. Per ACC/AHA guidelines, the patient requires no further testing at this time. CARDIAC TESTING and REVIEW OF PREVIOUS CARDIAC TESTING/IMAGING EKG PULMONARY ASSESSMENT AND PLAN: # None PULMONARY TESTING AND REVIEW OF RECORDS if any HEMATOLOGY History of DVT/PE - Yes In case of surgeons plan or unforseen emergency, are you okay with receiving blood products? - yes Have you ever been diagnosed with any bleeding disorders in the past (Hemophilia A or B, Von Willebrand Disease)? - No Patient has not received blood transfusions in the last 3 months. ASSESSMENT AND PLAN prothrombin gene mutation -hx DVT in left leg and PE both sides in 03/2015, non provoked DVT, was off Xarelto for 14 days, then has 2nd PE 10/2015. He tolerated knee surgery before without bleeding. -Xarelto was held due to R iliacuc bleed then found to have a L popliteal vein, L tibioperoneal trunk, L posterior tibial peroneal and L soleus vein. IVC filter was placed 05/20/2024, and pt was restarted on Xarelto. -now established with [facility] hematology, CARMELA 08/12/2024, urban-op recommendations requested [place], Thank you for the update. You can hold the Xarelto 2 days prior and restart 2 days after assuming no bleeding issues and okay with the surgical team. Please let me know if you have any questions, Starr Recommend standard VTE prophylaxis inpatient DIABETES and ENDOCRINOLOGY ASSESSMENT AND PLAN Lab Results Component Value Date HGBA1C 5.0 10/15/2024 ADDITIONAL DIAGNOSES OF CONCERN ASSESSMENT AND PLAN BPH -managed on tamsulosin -monitor for postoperative urinary retention. GERD -stable on PPI Depression -chronic, subjectively stable on home meds TESTING AND REVIEW OF RECORDS if any SOCIAL/SUBSTANCE USE HISTORY Social History Tobacco Use Smoking Status Never Smokeless Tobacco Never Social History Substance and Sexual Activity Alcohol Use No Social History Substance and Sexual Activity Drug Use No Does the patient Vape? No Does the patient currently smoke? No ASSESSMENT AND PLAN: # No active use MEDICATIONS Current Outpatient Medications Medication Sig Acetaminophen (TYLENOL ARTHRITIS PAIN PO) Take by mouth. 3-4 tabs prn acetaminophen 500 MG tablet Take 2 tablets by mouth 3 times daily. Please start the evening of surgery (Patient taking differently: Take 3 tablets by mouth at bedtime.) DULoxetine [address] Particles capsule DR Take 1 capsule by mouth daily every morning. gabapentin 600 MG tablet Take 1 tablet by mouth 3 times daily. losartan 50 MG PO TABS Take 1 tablet by mouth daily every morning. magnesium oxide 400 MG tablet Take 1 tablet by mouth daily every morning. metoprolol 25 MG tab regular release Take 0.5 tablets by mouth daily every morning. MOMETASONE FUROATE NA by Nasal route as needed.. omeprazole [address] Take 1 capsule by mouth daily every morning. Tamsulosin HCl 0.4 MG capsule Take 1 capsule by mouth daily with lunch. VITAMIN D PO Take 1 capsule by mouth daily every morning. XARELTO 20 MG Take 1 tablet by mouth daily every morning. Last dose 10/15/2024 AM acetaminophen 325 MG tablet Take 1 tablet by mouth every 4 hours. (Patient not taking: Reported on 08/12/2024) DULoxetine [address] Particles capsule DR Take 1 capsule by mouth daily. (Patient not taking: Reported on 10/15/2024) Gabapentin 300 MG capsule Take 1 capsule by mouth 3 times daily. (Patient not taking: Reported on 10/15/2024) Mupirocin 2 % ointment Apply a small amount in each nostril twice daily for 5 days prior to surgery. (Patient not taking: Reported on 08/12/2024) mupirocin 2% Ointment 1 Application by Nasal route every 8 hours. Apply a small amount in each nostril twice daily for 5 days prior to surgery. oxyCODONE 5 MG tablet Take 1-2 tablets by mouth every 4 hours as needed for Severe Pain for up to 5days. Please start the evening of surgery (Patient not taking: Reported on 08/21/2024) Medication A/P - Instructions for preoperative medications given to the patient in AVS. LABS Orders Placed This Encounter SCREEN: MRSA/MSSA ALBUMIN C REACTIVE PROTEIN CALCIUM CBC, EDIF, PLATELET CHEM 7 (LYTES,BUN,CREA,GLUC) HEMOGLOBIN A1C MAGNESIUM NICOTINE SCREEN URINE PT,INR,PTT SEDIMENTATION RATE, AUTOMATED ECG Type and Cross -Preadmission mupirocin 2% Ointment Lab A/P - Lab Results Component Value Date SODIUM 141 10/15/2024 POTASSIUM 4.5 10/15/2024 CHLORIDE 103 10/15/2024 CO2 28 10/15/2024 BUN 21 10/15/2024 CREATSERUM 1.04 10/15/2024 GLUCOSE 80 10/15/2024 Lab Results Component Value Date WBC 5.66 10/15/2024 HGB 16.0 10/15/2024 HCT 48.2 10/15/2024 PLATELET 211 10/15/2024 MCV 90.6 10/15/2024 Lab Results Component Value Date INR 1.4 (H) 10/15/2024 INR 1.0 04/23/2024 INR 1.0 12/29/2016 PT 17.0 (H) 10/15/2024 PT 13.4 04/23/2024 PT 13.2 12/29/2016 Thank you for allowing us to participate in the care of Malvin Roblero. Total time spent on the day of patient's visit was 45 minutes. This includes but is not limited to time spent preparing to see the patient, precharting, reviewing outside medical records, time spent in the patient's room doing a history and physical exam along with medication education, ordering lab test and requesting medical information as well as interpreting lab results and testing completed at [facility] and outside facilities through Care Everywhere. All the labs reviewed have been summarized and included in my history above. Note to patient: The Cures Act makes medical notes like these available to patients inthe interest of transparency. However, be advised this is a medical document. It is intended as mddd-vb-sold communication. It is written in medical language and may contain abbreviations or verbiagethat are unfamiliar. It may appear blunt or direct. Medical documents are intended to carry relevant information, facts as evident, and the clinical opinion of the practitioner. [employer] dictation software may have been used to write this note. Please excuse any errors that may have occurred as a result of the dictation. Cecelia Wright PA-C [place] [id number] [address] Review of Systems (OSUROS) The patient denies any chest pain on exertion, shortness of breath, orthopnea or palpitation ROS also negative for fever, chills, headache, dizziness, cough, sputum, nausea, vomiting, diarrhea, constipation, dysuria, hematuria, rashes or easy bleeding. All other systems were reviewed and were negative Physical Examination (PHYSEXAM) Blood pressure 122/75, pulse 58, temperature 97.5 F (36.4 C), temperature source Temporal, resp. rate 14, height 1.778 m (5' 10), weight 86.2 kg (190 lb), SpO2 97%. General:69 y.o. male in NAD, alert and oriented x 3 HEENT: Normocephalic, EOMI, moist mucous membranes noted. Pulmonary: bilateral breath sounds, clear to auscultation, no use of accessory muscles, no wheezes/rhonchi/rales Cardiovascular:Regular rate and rhythm. Normal S1, S2, No murmurs, rubs or gallops Abdomen: soft, nontender, nondistended, normoactive bowel sounds, Extremities: No cyanosis, clubbing or edema. Normal peripheral pulses noted. Neuro: Cranial nerves are grossly intact, No focal deficits noted, moving all 4 extremities. Skin: warm, dry, intact; no erythema or rash Past Medical History: Diagnosis Date Chicken pox Deep vein thrombosis (DVT) 04/2024 left leg Factor II deficiency Gastroesophageal reflux GERD (gastroesophageal reflux disease) [place] measles screening History of seasonal allergies Hypertension Measles Mumps Pulmonary embolism x2 Past Surgical History: Procedure Laterality Date IVC FILTER PLACEMENT 04/2024 ARTHROSCOPY SHOULDER W/ ROTATOR CUFF REPAIR Left 02/24/2020 Laterality: Left; Surgeon: Seth Olvera MD; Location: [facility] PERIOP ARTHROSCOPY SHOULDER W/ DEBRIDEMENT Left 02/24/2020 Laterality: Left; Surgeon: Seth Olvera MD; Location: [facility] ARTHROSCOPY SHOULDER W/ SUBACROMIAL DECOMPRESSION/ACROMIOPLASTY ADD-ON Left 02/24/2020 Laterality: Left; Surgeon: Seth Olvera MD; Location: [facility]IOP RESECTION/TRANSPLANTATION BICEPS LONG TENDON Left 02/24/2020 Laterality: Left; Surgeon: Seth Olvera MD; Location: [facility] HIP REPLACEMENT Left 2018 Done in [place] ARTHROSCOPY SHOULDER W/ ROTATOR CUFF REPAIR Right [...] MCL recon ACL RECONSTRUCTION 1997 Right knee Patient Care Team: Kayla Erwin MD as PCP - General (Family Medicine) Family History Problem Relation Age of Onset Hypertension Father Cancer- Other Father brain Bleeding or Clotting Problems Father Hypertension Mother Neurologic Disease Mother cognitive problems, hydrocephalus Bleeding or Clotting Problems Daughter Bleeding or Clotting Problems Daughter Bleeding or Clotting Problems Daughter Aneurysm Neg Hx Myocardial Infarction Neg Hx Stroke Neg Hx Diabetes Neg Hx Heart Failure Neg Hx Dysrhythmia Neg Hx Social History Socioeconomic History Marital status: Tobacco Use Smoking status: Never Smokeless tobacco: Never Vaping Use Vaping status: Never Used Substance and Sexual Activity Alcohol use: No Drug use: No Sexual activity: Not Currently Partners: Female control/protection: Vasectomy [facility] Work Phone: 1(857) 165-561706-10-2025 History and physical note* Jake Espinoza DO - 10/29/2024 8:53 AM EDT I have examined the patient and reviewed the previous H&P completed on date 10/15/24 and there are no changes. Jake Espinoza DO, 10/29/2024, 8:53 AM. Cosigned by Josue Garcia MD at 10/29/2024 9:15 AM EDT Source Note - Cecelia Wright PA-C - 10/15/2024 11:00 AM EDT Images from the original note were not included. PREOPERATIVE ASSESSMENT H[facility]P [facility] Name: Malvin Roblero Date of Surgery: 10/29/2024 Surgeon: Josue Garcia Pre-Op Diagnosis: Right Hip Pain Planned Procedure: RTHA DAA - Right Anesthesia Type: planned for general anesthesia SUMMARY AND RECOMMENDATIONS The patient is medically optimized at the time of this visit. Strict NPO Diet recommended. Malvin Roblero is a 69 y.o. year old patient with a history the following diagnoses which increase his risk for perioperative complications. he being referred for pre operative evaluation and optimization. The relative status of the medical conditions are further explained in this note. 1. Preop exam for internal medicine 2. Chronic right hip pain 3. Gastroesophageal reflux disease without esophagitis 4. Essential hypertension ANESTHESIA and AIRWAY Anesthesia alerts: ERAS, Prolonged postop somnolence Personal history of problems related to anesthesia (ex.Malignant Hyperthermia): No prolonged postoperative somnolence, no malignant hyperthermia, no issue w/IV and no PONV Family History of problems related to anesthesia (ex.Malignant Hyperthermia: no Pacer/AICD: no Nerve stimulators (DBS, PNS, SCS): no Parenteral Access: no Glaucoma: no JESUS: no STOP-BANG Risk Assessment Do you snore - Yes Are you frequently tired during the day? - No Have you been observed gasping or choking while asleep? - No Do you have high blood pressure? - Yes Age more than 50? - Yes Gender male? - Yes Neck circumference greater than 40 cm? - No Neck Circumference (cm): 30.48 BMI more then 35? - No Body mass index is 27.26 kg/m . Mallampati class - 2 TM Distance - 3 FB Oral Opening - 3 FB Teeth - normal dentition for age Cervical range of motion - within normal limits Neck circumference - Neck Circumference (cm): 31.75 Body mass index is 27.26 kg/m . Allergies and adverse drug reactions Allergies Allergen Reactions Cyclobenzaprine throat swelling Ketorolac Tromethamine Swelling Meloxicam Swelling Orphenadrine Swelling Penicillin G Rash Triamcinolone Swelling ANESTHESIA/AIRWAY ASSESSMENT AND PLAN- # Anesthesia Alerts as above if applicable # Patient is at Intermediate (3-4) risk for JESUS vs Patient has JESUS # Previous Airway Details below (if available) Intubation Airway not difficult General Information and Staff Patient location during procedure: OR Room: Indications and Patient Condition Indications for airway management: general anesthesia Spontaneous ventilation: present Sedation level: general anesthesia Preoxygenated: yes Patient position: supine Manual Inline Stabilization not maintained throughout Mask difficulty assessment: 1 - vent by mask Final Airway Details Final airway type: supraglottic airway Successful airway: LMA Size 4 Placement verified by: auscultation and CO2 detection Tube Secured with: tape Number of attempts at approach: 1 Additional Comments Atraumatic LMA placement. No complications. CARDIOVASCULAR Do you take Aspirin or other antiplatelet agents? no Do you take anti-coagulations? yes - xarelto Beta Eliot: no Patient denies a history of cardiac events or [place]. Denies chest pain, palpitation or worsening SOB over the last few months ASSESSMENT AND PLAN- Essential HTN -managed on losartan and metoprolol -appears controlled BP Readings from Last 3 Encounters: 10/15/24 122/75 08/21/24 119/87 08/12/24 116/70 # Functional status - METS: Moderate: 4-7 METS functional status. 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 (Able to stand and pivot) # Pre-operative Risk Evaluation: Patient Meets the Following RCRI Criteria (RCRI): None: 0 criteria suggesting a 3.9% risk of major cardiac events or within 30 days. Malvin Roblero is at a Low risk based on the RCRI above. Patient can achieve METS > 4. Per ACC/AHA guidelines, the patient requires no further testing at this time. CARDIAC TESTING and REVIEW OF PREVIOUS CARDIAC TESTING/IMAGING EKG PULMONARY ASSESSMENT AND PLAN: # None PULMONARY TESTING AND REVIEW OF RECORDS if any HEMATOLOGY History of DVT/PE - Yes In case of surgeons plan or unforseen emergency, are you okay with receiving blood products? - yes Have you ever been diagnosed with any bleeding disorders in the past (Hemophilia A or B, Von Willebrand Disease)? - No Patient has not received blood transfusions in the last 3 months. ASSESSMENT AND PLAN prothrombin gene mutation -hx DVT in left leg and PE both sides in 03/2015, non provoked DVT, was off Xarelto for 14 days, then has 2nd PE 10/2015. He tolerated knee surgery before without bleeding. -Xarelto was held due to R iliacuc bleed then found to have a L popliteal vein, L tibioperoneal trunk, L posterior tibial peroneal and L soleus vein. IVC filter was placed 05/20/2024, and pt was restarted on Xarelto. -now established with [facility] hematology, CARMELA 08/12/2024, urban-op recommendations requested [place], Thank you for the update. You can hold the Xarelto 2 days prior and restart 2 days after assuming no bleeding issues and okay with the surgical team. Please let me know if you have any questions, Starr Recommend standard VTE prophylaxis inpatient DIABETES and ENDOCRINOLOGY ASSESSMENT AND PLAN Lab Results Component Value Date HGBA1C 5.0 10/15/2024 ADDITIONAL DIAGNOSES OF CONCERN ASSESSMENT AND PLAN BPH -managed on tamsulosin -monitor for postoperative urinary retention. GERD -stable on PPI Depression -chronic, subjectively stable on home meds TESTING AND REVIEW OF RECORDS if any SOCIAL/SUBSTANCE USE HISTORY Social History Tobacco Use Smoking Status Never Smokeless Tobacco Never Social History Substance and Sexual Activity Alcohol Use No Social History Substance and Sexual Activity Drug Use No Does the patient Vape? No Does the patient currently smoke? No ASSESSMENT AND PLAN: # No active use MEDICATIONS Current Outpatient Medications Medication Sig Acetaminophen (TYLENOL ARTHRITIS PAIN PO) Take by mouth. 3-4 tabs prn acetaminophen 500 MG tablet Take 2 tablets by mouth 3 times daily. Please start the evening of surgery (Patient taking differently: Take 3 tablets by mouth at bedtime.) DULoxetine [address] Particles capsule DR Take 1 capsule by mouth daily every morning. gabapentin 600 MG tablet Take 1 tablet by mouth 3 times daily. losartan 50 MG PO TABS Take 1 tablet by mouth daily every morning. magnesium oxide 400 MG tablet Take 1 tablet by mouth daily every morning. metoprolol 25 MG tab regular release Take 0.5 tablets by mouth daily every morning. MOMETASONE FUROATE NA by Nasal route as needed.. omeprazole [address] Take 1 capsule by mouth daily every morning. Tamsulosin HCl 0.4 MG capsule Take 1 capsule by mouth daily with lunch. VITAMIN D PO Take 1 capsule by mouth daily every morning. XARELTO 20 MG Take 1 tablet by mouth daily every morning. Last dose 10/15/2024 AM acetaminophen 325 MG tablet Take 1 tablet by mouth every 4 hours. (Patient not taking: Reported on 08/12/2024) DULoxetine [address] Particles capsule DR Take 1 capsule by mouth daily. (Patient not taking: Reported on 10/15/2024) Gabapentin 300 MG capsule Take 1 capsule by mouth 3 times daily. (Patient not taking: Reported on 10/15/2024) Mupirocin 2 % ointment Apply a small amount in each nostril twice daily for 5 days prior to surgery. (Patient not taking: Reported on 08/12/2024) mupirocin 2% Ointment 1 Application by Nasal route every 8 hours. Apply a small amount in each nostril twice daily for 5 days prior to surgery. oxyCODONE 5 MG tablet Take 1-2 tablets by mouth every 4 hours as needed for Severe Pain for up to 5days. Please start the evening of surgery (Patient not taking: Reported on 08/21/2024) Medication A/P - Instructions for preoperative medications given to the patient in AVS. LABS Orders Placed This Encounter SCREEN: MRSA/MSSA ALBUMIN C REACTIVE PROTEIN CALCIUM CBC, EDIF, PLATELET CHEM 7 (LYTES,BUN,CREA,GLUC) HEMOGLOBIN A1C MAGNESIUM NICOTINE SCREEN URINE PT,INR,PTT SEDIMENTATION RATE, AUTOMATED ECG Type and Cross -Preadmission mupirocin 2% Ointment Lab A/P - Lab Results Component Value Date SODIUM 141 10/15/2024 POTASSIUM 4.5 10/15/2024 CHLORIDE 103 10/15/2024 CO2 28 10/15/2024 BUN 21 10/15/2024 CREATSERUM 1.04 10/15/2024 GLUCOSE 80 10/15/2024 Lab Results Component Value Date WBC 5.66 10/15/2024 HGB 16.0 10/15/2024 HCT 48.2 10/15/2024 PLATELET 211 10/15/2024 MCV 90.6 10/15/2024 Lab Results Component Value Date INR 1.4 (H) 10/15/2024 INR 1.0 04/23/2024 INR 1.0 12/29/2016 PT 17.0 (H) 10/15/2024 PT 13.4 04/23/2024 PT 13.2 12/29/2016 Thank you for allowing us to participate in the care of Malvin Roblero. Total time spent on the day of patient's visit was 45 minutes. This includes but is not limited to time spent preparing to see the patient, precharting, reviewing outside medical records, time spent in the patient's room doing a history and physical exam along with medication education, ordering lab test and requesting medical information as well as interpreting lab results and testing completed at [facility] and outside facilities through Care Everywhere. All the labs reviewed have been summarized and included in my history above. Note to patient: The 21st Century Cures Act makes medical notes like these available to patients inthe interest of transparency. However, be advised this is a medical document. It is intended as [id number] communication. It is written in medical language and may contain abbreviations or verbiagethat are unfamiliar. It may appear blunt or direct. Medical documents are intended to carry relevant information, facts as evident, and the clinical opinion of the practitioner. ArtistForce dictation software may have been used to write this note. Please excuse any errors that may have occurred as a result of the dictation. Cecelia Wright PA-C [facility] [place] Review of Systems (OSUROS) The patient denies any chest pain on exertion, shortness of breath, orthopnea or palpitation ROS also negative for fever, chills, headache, dizziness, cough, sputum, nausea, vomiting, diarrhea, constipation, dysuria, hematuria, rashes or easy bleeding. All other systems were reviewed and were negative Physical Examination (PHYSEXAM) Blood pressure 122/75, pulse 58, temperature 97.5 F (36.4 C), temperature source Temporal, resp. rate 14, height 1.778 m (5' 10), weight 86.2 kg (190 lb), SpO2 97%. General:69 y.o. male in NAD, alert and oriented x 3 HEENT: Normocephalic, EOMI, moist mucous membranes noted. Pulmonary: bilateral breath sounds, clear to auscultation, no use of accessory muscles, no wheezes/rhonchi/rales Cardiovascular:Regular rate and rhythm. Normal S1, S2, No murmurs, rubs or gallops Abdomen: soft, nontender, nondistended, normoactive bowel sounds, Extremities: No cyanosis, clubbing or edema. Normal peripheral pulses noted. Neuro: Cranial nerves are grossly intact, No focal deficits noted, moving all 4 extremities. Skin: warm, dry, intact; no erythema or rash Past Medical History: Diagnosis Date Chicken pox Deep vein thrombosis (DVT) 04/2024 left leg Factor II deficiency Gastroesophageal reflux GERD (gastroesophageal reflux disease) [place] measles screening History of seasonal allergies Hypertension Measles Mumps Pulmonary embolism x2 Past Surgical History: Procedure Laterality Date IVC FILTER PLACEMENT 04/2024 ARTHROSCOPY SHOULDER W/ ROTATOR CUFF REPAIR Left 02/24/2020 Laterality: Left; Surgeon: Seth Olvera MD; Location: [facility] PERIOP ARTHROSCOPY SHOULDER W/ DEBRIDEMENT Left 02/24/2020 Laterality: Left; Surgeon: Seth Olvera MD; Location: [facility] ARTHROSCOPY SHOULDER W/ SUBACROMIAL DECOMPRESSION/ACROMIOPLASTY ADD-ON Left 02/24/2020 Laterality: Left; Surgeon: Seth Olvera MD; Location: [facility]IOP RESECTION/TRANSPLANTATION BICEPS LONG TENDON Left 02/24/2020 Laterality: Left; Surgeon: Seth Olvera MD; Location: [facility] HIP REPLACEMENT Left 2018 Done in [place] ARTHROSCOPY SHOULDER W/ ROTATOR CUFF REPAIR Right [...] MCL recon ACL RECONSTRUCTION 1997 Right knee Patient Care Team: Kayla Erwin MD as PCP - General (Family Medicine) Family History Problem Relation Age of Onset Hypertension Father Cancer- Other Father brain Bleeding or Clotting Problems Father Hypertension Mother Neurologic Disease Mother cognitive problems, hydrocephalus Bleeding or Clotting Problems Daughter Bleeding or Clotting Problems Daughter Bleeding or Clotting Problems Daughter Aneurysm Neg Hx Myocardial Infarction Neg Hx Stroke Neg Hx Diabetes Neg Hx Heart Failure Neg Hx Dysrhythmia Neg Hx Social History Socioeconomic History Marital status: Tobacco Use Smoking status: Never Smokeless tobacco: Never Vaping Use Vaping status: Never Used Substance and Sexual Activity Alcohol use: No Drug use: No Sexual activity: Not Currently Partners: Female control/protection: [facility] Note* Telephone Encounter - Shweta Rivera RN - 10/23/2024 12:45 PM EDT Spoke with pharmacist at [facility] and advised per provider patient can choose to pay out pocket for full prescription or he can fill per [facility] guidelines and insurance coverage of 42 tabs. If patient chooses to pay OOP for Oxycodone, RX will need to be sent to a different pharmacy as they will not fill stating patient is opioid naive. [facility]06-04-2025 Miscellaneous Notes* Telephone Encounter - Shweta Rivera RN - 10/23/2024 12:45 PM EDT Spoke with pharmacist at [facility] and advised per provider patient can choose to pay out pocket for full prescription or he can fill per [facility] guidelines and insurance coverage of 42 tabs. If patient chooses to pay OOP for Oxycodone, RX will need to be sent to a different pharmacy as they will not fill stating patient is opioid naive. * Telephone Encounter - Linda Drew - 10/22/2024 3:09 PM EDT Dipti calling in from [facility] about the oxycodone they will do max 6 per day is that ok and needs to cut the quantity down to 42 pills for 7 day supply. Please advise [facility] Tele[facility] encounter Note* Telephone Encounter - Linda Drew - 10/22/2024 3:09 PM EDT Dipti calling in from [facility] about the oxycodone they will do max 6 per day is that ok and needs to cut the quantity down to 42 pills for 7 day supply. Please advise [facility] [place]05-27-2025 History and physical note* Cecelia Wright PA-C - 10/15/2024 11:00 AM EDT Images from the original note were not included. PREOPERATIVE ASSESSMENT [facility] Name: Malvin Roblero Date of Surgery: 10/29/2024 Surgeon: Josue Garcia Pre-Op Diagnosis: Right Hip Pain Planned Procedure: RTHA DAA - Right Anesthesia Type: planned for general anesthesia SUMMARY AND RECOMMENDATIONS The patient is medically optimized at the time of this visit. Strict NPO Diet recommended. Malvin Roblero is a 69 y.o. year old patient with a history the following diagnoses which increase his risk for perioperative complications. he being referred for pre operative evaluation and optimization. The relative status of the medical conditions are further explained in this note. 1. Preop exam for internal medicine 2. Chronic right hip pain 3. Gastroesophageal reflux disease without esophagitis 4. Essential hypertension ANESTHESIA and AIRWAY Anesthesia alerts: ERAS, Prolonged postop somnolence Personal history of problems related to anesthesia (ex.Malignant Hyperthermia): No prolonged postoperative somnolence, no malignant hyperthermia, no issue w/IV and no PONV Family History of problems related to anesthesia (ex.Malignant Hyperthermia: no Pacer/AICD: no Nerve stimulators (DBS, PNS, SCS): no Parenteral Access: no Glaucoma: no JESUS: no STOP-BANG Risk Assessment Do you snore - Yes Are you frequently tired during the day? - No Have you been observed gasping or choking while asleep? - No Do you have high blood pressure? - Yes Age more than 50? - Yes Gender male? - Yes Neck circumference greater than 40 cm? - No Neck Circumference (cm): 30.48 BMI more then 35? - No Body mass index is 27.26 kg/m . Mallampati class - 2 TM Distance - 3 FB Oral Opening - 3 FB Teeth - normal dentition for age Cervical range of motion - within normal limits Neck circumference - Neck Circumference (cm): 31.75 Body mass index is 27.26 kg/m . Allergies and adverse drug reactions Allergies Allergen Reactions Cyclobenzaprine throat swelling Ketorolac Tromethamine Swelling Meloxicam Swelling Orphenadrine Swelling Penicillin G Rash Triamcinolone Swelling ANESTHESIA/AIRWAY ASSESSMENT AND PLAN- # Anesthesia Alerts as above if applicable # Patient is at Intermediate (3-4) risk for JESUS vs Patient has JESUS # Previous Airway Details below (if available) Intubation Airway not difficult General Information and Staff Patient location during procedure: OR Room: Indications and Patient Condition Indications for airway management: general anesthesia Spontaneous ventilation: present Sedation level: general anesthesia Preoxygenated: yes Patient position: supine Manual Inline Stabilization not maintained throughout Mask difficulty assessment: 1 - vent by mask Final Airway Details Final airway type: supraglottic airway Successful airway: LMA Size 4 Placement verified by: auscultation and CO2 detection Tube Secured with: tape Number of attempts at approach: 1 Additional Comments Atraumatic LMA placement. No complications. CARDIOVASCULAR Do you take Aspirin or other antiplatelet agents? no Do you take anti-coagulations? yes - xarelto Beta Eliot: no Patient denies a history of cardiac events or [place]. Denies chest pain, palpitation or worsening SOB over the last few months ASSESSMENT AND PLAN- Essential HTN -managed on losartan and metoprolol -appears controlled BP Readings from Last 3 Encounters: 10/15/24 122/75 08/21/24 119/87 08/12/24 116/70 # Functional status - METS: Moderate: 4-7 METS functional status. 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 (Able to stand and pivot) # Pre-operative Risk Evaluation: Patient Meets the Following RCRI Criteria (RCRI): None: 0 criteria suggesting a 3.9% risk of major cardiac events or within 30 days. Malvin Roblero is at a Low risk based on the RCRI above. Patient can achieve METS > 4. Per ACC/AHA guidelines, the patient requires no further testing at this time. CARDIAC TESTING and REVIEW OF PREVIOUS CARDIAC TESTING/IMAGING EKG PULMONARY ASSESSMENT AND PLAN: # None PULMONARY TESTING AND REVIEW OF RECORDS if any HEMATOLOGY History of DVT/PE - Yes In case of surgeons plan or unforseen emergency, are you okay with receiving blood products? - yes Have you ever been diagnosed with any bleeding disorders in the past (Hemophilia A or B, Von Willebrand Disease)? - No Patient has not received blood transfusions in the last 3 months. ASSESSMENT AND PLAN prothrombin gene mutation -hx DVT in left leg and PE both sides in 03/2015, non provoked DVT, was off Xarelto for 14 days, then has 2nd PE 10/2015. He tolerated knee surgery before without bleeding. -Xarelto was held due to R iliacuc bleed then found to have a L popliteal vein, L tibioperoneal trunk, L posterior tibial peroneal and L soleus vein. IVC filter was placed 05/20/2024, and pt was restarted on Xarelto. -now established with [facility] hematology, CARMELA 08/12/2024, urban-op recommendations requested [place], Thank you for the update. You can hold the Xarelto 2 days prior and restart 2 days after assuming no bleeding issues and okay with the surgical team. Please let me know if you have any questions, Starr Recommend standard VTE prophylaxis inpatient DIABETES and ENDOCRINOLOGY ASSESSMENT AND PLAN Lab Results Component Value Date HGBA1C 5.0 10/15/2024 ADDITIONAL DIAGNOSES OF CONCERN ASSESSMENT AND PLAN BPH -managed on tamsulosin -monitor for postoperative urinary retention. GERD -stable on PPI Depression -chronic, subjectively stable on home meds TESTING AND REVIEW OF RECORDS if any SOCIAL/SUBSTANCE USE HISTORY Social History Tobacco Use Smoking Status Never Smokeless Tobacco Never Social History Substance and Sexual Activity Alcohol Use No Social History Substance and Sexual Activity Drug Use No Does the patient Vape? No Does the patient currently smoke? No ASSESSMENT AND PLAN: # No active use MEDICATIONS Current Outpatient Medications Medication Sig Acetaminophen (TYLENOL ARTHRITIS PAIN PO) Take by mouth. 3-4 tabs prn acetaminophen 500 MG tablet Take 2 tablets by mouth 3 times daily. Please start the evening of surgery (Patient taking differently: Take 3 tablets by mouth at bedtime.) DULoxetine [address] Particles capsule DR Take 1 capsule by mouth daily every morning. gabapentin 600 MG tablet Take 1 tablet by mouth 3 times daily. losartan 50 MG PO TABS Take 1 tablet by mouth daily every morning. magnesium oxide 400 MG tablet Take 1 tablet by mouth daily every morning. metoprolol 25 MG tab regular release Take 0.5 tablets by mouth daily every morning. MOMETASONE FUROATE NA by Nasal route as needed.. omeprazole [address] Take 1 capsule by mouth daily every morning. Tamsulosin HCl 0.4 MG capsule Take 1 capsule by mouth daily with lunch. VITAMIN D PO Take 1 capsule by mouth daily every morning. XARELTO 20 MG Take 1 tablet by mouth daily every morning. Last dose 10/15/2024 AM acetaminophen 325 MG tablet Take 1 tablet by mouth every 4 hours. (Patient not taking: Reported on 08/12/2024) DULoxetine [address] Particles capsule DR Take 1 capsule by mouth daily. (Patient not taking: Reported on 10/15/2024) Gabapentin 300 MG capsule Take 1 capsule by mouth 3 times daily. (Patient not taking: Reported on 10/15/2024) Mupirocin 2 % ointment Apply a small amount in each nostril twice daily for 5 days prior to surgery. (Patient not taking: Reported on 08/12/2024) mupirocin 2% Ointment 1 Application by Nasal route every 8 hours. Apply a small amount in each nostril twice daily for 5 days prior to surgery. oxyCODONE 5 MG tablet Take 1-2 tablets by mouth every 4 hours as needed for Severe Pain for up to 5days. Please start the evening of surgery (Patient not taking: Reported on 08/21/2024) Medication A/P - Instructions for preoperative medications given to the patient in AVS. LABS Orders Placed This Encounter SCREEN: MRSA/MSSA ALBUMIN C REACTIVE PROTEIN CALCIUM CBC, EDIF, PLATELET CHEM 7 (LYTES,BUN,CREA,GLUC) HEMOGLOBIN A1C MAGNESIUM NICOTINE SCREEN URINE PT,INR,PTT SEDIMENTATION RATE, AUTOMATED ECG Type and Cross -Preadmission mupirocin 2% Ointment Lab A/P - Lab Results Component Value Date SODIUM 141 10/15/2024 POTASSIUM 4.5 10/15/2024 CHLORIDE 103 10/15/2024 CO2 28 10/15/2024 BUN 21 10/15/2024 CREATSERUM 1.04 10/15/2024 GLUCOSE 80 10/15/2024 Lab Results Component Value Date WBC 5.66 10/15/2024 HGB 16.0 10/15/2024 HCT 48.2 10/15/2024 PLATELET 211 10/15/2024 MCV 90.6 10/15/2024 Lab Results Component Value Date INR 1.4 (H) 10/15/2024 INR 1.0 04/23/2024 INR 1.0 12/29/2016 PT 17.0 (H) 10/15/2024 PT 13.4 04/23/2024 PT 13.2 12/29/2016 Thank you for allowing us to participate in the care of Malvin Roblero. Total time spent on the day of patient's visit was 45 minutes. This includes but is not limited to time spent preparing to see the patient, precharting, reviewing outside medical records, time spent in the patient's room doing a history and physical exam along with medication education, ordering lab test and requesting medical information as well as interpreting lab results and testing completed at [facility] and outside facilities through [facility] Everywhere. All the labs reviewed have been summarized and included in my history above. Note to patient: The Cures Act makes medical notes like these available to patients inthe interest of transparency. However, be advised this is a medical document. It is intended as [id number] communication. It is written in medical language and may contain abbreviations or verbiagethat are unfamiliar. It may appear blunt or direct. Medical documents are intended to carry relevant information, facts as evident, and the clinical opinion of the practitioner. ArtistForce dictation software may have been used to write this note. Please excuse any errors that may have occurred as a result of the dictation. Cecelia Wright PA-C [facility] [place] Review of Systems (OSUROS) The patient denies any chest pain on exertion, shortness of breath, orthopnea or palpitation ROS also negative for fever, chills, headache, dizziness, cough, sputum, nausea, vomiting, diarrhea, constipation, dysuria, hematuria, rashes or easy bleeding. All other systems were reviewed and were negative Physical Examination (PHYSEXAM) Blood pressure 122/75, pulse 58, temperature 97.5 F (36.4 C), temperature source Temporal, resp. rate 14, height 1.778 m (5' 10), weight 86.2 kg (190 lb), SpO2 97%. General:69 y.o. male in NAD, alert and oriented x 3 HEENT: Normocephalic, EOMI, moist mucous membranes noted. Pulmonary: bilateral breath sounds, clear to auscultation, no use of accessory muscles, no wheezes/rhonchi/rales Cardiovascular:Regular rate and rhythm. Normal S1, S2, No murmurs, rubs or gallops Abdomen: soft, nontender, nondistended, normoactive bowel sounds, Extremities: No cyanosis, clubbing or edema. Normal peripheral pulses noted. Neuro: Cranial nerves are grossly intact, No focal deficits noted, moving all 4 extremities. Skin: warm, dry, intact; no erythema or rash Past Medical History: Diagnosis Date Chicken pox Deep vein thrombosis (DVT) 04/2024 left leg Factor II deficiency Gastroesophageal reflux GERD (gastroesophageal reflux disease) [place] measles screening History of seasonal allergies Hypertension Measles Mumps Pulmonary embolism x2 Past Surgical History: Procedure Laterality Date IVC FILTER PLACEMENT 04/2024 ARTHROSCOPY SHOULDER W/ ROTATOR CUFF REPAIR Left 02/24/2020 Laterality: Left; Surgeon: Seth Olvera MD; Location: [facility] ARTHROSCOPY SHOULDER W/ DEBRIDEMENT Left 02/24/2020 Laterality: Left; Surgeon: Seth Olvera MD; Location: [facility] ARTHROSCOPY SHOULDER W/ SUBACROMIAL DECOMPRESSION/ACROMIOPLASTY ADD-ON Left 02/24/2020 Laterality: Left; Surgeon: Seth Olvera MD; Location: [facility] RESECTION/TRANSPLANTATION BICEPS LONG TENDON Left 02/24/2020 Laterality: Left; Surgeon: Seth Olvera MD; Location: [facility] HIP REPLACEMENT Left 2018 Done in [place] ARTHROSCOPY SHOULDER W/ ROTATOR CUFF REPAIR Right [...] MCL recon ACL RECONSTRUCTION 1997 Right knee Patient Care Team: Kayla Erwin MD as PCP - General (Family Medicine) Family History Problem Relation Age of Onset Hypertension Father Cancer- Other Father brain Bleeding or Clotting Problems Father Hypertension Mother Neurologic Disease Mother cognitive problems, hydrocephalus Bleeding or Clotting Problems Daughter Bleeding or Clotting Problems Daughter Bleeding or Clotting Problems Daughter Aneurysm Neg Hx Myocardial Infarction Neg Hx Stroke Neg Hx Diabetes Neg Hx Heart Failure Neg Hx Dysrhythmia Neg Hx Social History Socioeconomic History Marital status: Tobacco Use Smoking status: Never Smokeless tobacco: Never Vaping Use Vaping status: Never Used Substance and Sexual Activity Alcohol use: No Drug use: No Sexual activity: Not Currently Partners: Female control/protection: Vasectomy [facility] [place]05-27-[facility] History and physical note* Cecelia Wright PA-C - 10/15/2024 11:00 AM EDT Images from the original note were not included. PREOPERATIVE ASSESSMENT [facility] Name: Malvin Roblero Date of Surgery: 10/29/2024 Surgeon: Josue Garcia Pre-Op Diagnosis: Right Hip Pain Planned Procedure: RTHA DAA - Right Anesthesia Type: planned for general anesthesia SUMMARY AND RECOMMENDATIONS The patient is medically optimized at the time of this visit. Strict NPO Diet recommended. Malvin Roblero is a 69 y.o. year old patient with a history the following diagnoses which increase his risk for perioperative complications. he being referred for pre operative evaluation and optimization. The relative status of the medical conditions are further explained in this note. 1. Preop exam for internal medicine 2. Chronic right hip pain 3. Gastroesophageal reflux disease without esophagitis 4. Essential hypertension ANESTHESIA and AIRWAY Anesthesia alerts: ERAS, Prolonged postop somnolence Personal history of problems related to anesthesia (ex.Malignant Hyperthermia): No prolonged postoperative somnolence, no malignant hyperthermia, no issue w/IV and no PONV Family History of problems related to anesthesia (ex.Malignant Hyperthermia: no Pacer/AICD: no Nerve stimulators (DBS, PNS, SCS): no Parenteral Access: no Glaucoma: no JESUS: no STOP-BANG Risk Assessment Do you snore - Yes Are you frequently tired during the day? - No Have you been observed gasping or choking while asleep? - No Do you have high blood pressure? - Yes Age more than 50? - Yes Gender male? - Yes Neck circumference greater than 40 cm? - No Neck Circumference (cm): 30.48 BMI more then 35? - No Body mass index is 27.26 kg/m . Mallampati class - 2 TM Distance - 3 FB Oral Opening - 3 FB Teeth - normal dentition for age Cervical range of motion - within normal limits Neck circumference - Neck Circumference (cm): 31.75 Body mass index is 27.26 kg/m . Allergies and adverse drug reactions Allergies Allergen Reactions Cyclobenzaprine throat swelling Ketorolac Tromethamine Swelling Meloxicam Swelling Orphenadrine Swelling Penicillin G Rash Triamcinolone Swelling ANESTHESIA/AIRWAY ASSESSMENT AND PLAN- # Anesthesia Alerts as above if applicable # Patient is at Intermediate (3-4) risk for JESUS vs Patient has JESUS # Previous Airway Details below (if available) Intubation Airway not difficult General Information and Staff Patient location during procedure: OR Room: Indications and Patient Condition Indications for airway management: general anesthesia Spontaneous ventilation: present Sedation level: general anesthesia Preoxygenated: yes Patient position: supine Manual Inline Stabilization not maintained throughout Mask difficulty assessment: 1 - vent by mask Final Airway Details Final airway type: supraglottic airway Successful airway: LMA Size 4 Placement verified by: auscultation and CO2 detection Tube Secured with: tape Number of attempts at approach: 1 Additional Comments Atraumatic LMA placement. No complications. CARDIOVASCULAR Do you take Aspirin or other antiplatelet agents? no Do you take anti-coagulations? yes - xarelto Beta Eliot: no Patient denies a history of cardiac events or [place]. Denies chest pain, palpitation or worsening SOB over the last few months ASSESSMENT AND PLAN- Essential HTN -managed on losartan and metoprolol -appears controlled BP Readings from Last 3 Encounters: 10/15/24 122/75 08/21/24 119/87 08/12/24 116/70 # Functional status - METS: Moderate: 4-7 METS functional status. 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 (Able to stand and pivot) # Pre-operative Risk Evaluation: Patient Meets the Following RCRI Criteria (RCRI): None: 0 criteria suggesting a 3.9% risk of major cardiac events or within 30 days. Malvin Roblero is at a Low risk based on the RCRI above. Patient can achieve METS > 4. Per ACC/AHA guidelines, the patient requires no further testing at this time. CARDIAC TESTING and REVIEW OF PREVIOUS CARDIAC TESTING/IMAGING EKG PULMONARY ASSESSMENT AND PLAN: # None PULMONARY TESTING AND REVIEW OF RECORDS if any HEMATOLOGY History of DVT/PE - Yes In case of surgeons plan or unforseen emergency, are you okay with receiving blood products? - yes Have you ever been diagnosed with any bleeding disorders in the past (Hemophilia A or B, Von Willebrand Disease)? - No Patient has not received blood transfusions in the last 3 months. ASSESSMENT AND PLAN prothrombin gene mutation -hx DVT in left leg and PE both sides in 03/2015, non provoked DVT, was off Xarelto for 14 days, then has 2nd PE 10/2015. He tolerated knee surgery before without bleeding. -Xarelto was held due to R iliacuc bleed then found to have a L popliteal vein, L tibioperoneal trunk, L posterior tibial peroneal and L soleus vein. IVC filter was placed 05/20/2024, and pt was restarted on Xarelto. -now established with [facility] hematology, CARMELA 08/12/2024, urban-op recommendations requested [place], Thank you for the update. You can hold the Xarelto 2 days prior and restart 2 days after assuming no bleeding issues and okay with the surgical team. Please let me know if you have any questions, Starr Recommend standard VTE prophylaxis inpatient DIABETES and ENDOCRINOLOGY ASSESSMENT AND PLAN Lab Results Component Value Date HGBA1C 5.0 10/15/2024 ADDITIONAL DIAGNOSES OF CONCERN ASSESSMENT AND PLAN BPH -managed on tamsulosin -monitor for postoperative urinary retention. GERD -stable on PPI Depression -chronic, subjectively stable on home meds TESTING AND REVIEW OF RECORDS if any SOCIAL/SUBSTANCE USE HISTORY Social History Tobacco Use Smoking Status Never Smokeless Tobacco Never Social History Substance and Sexual Activity Alcohol Use No Social History Substance and Sexual Activity Drug Use No Does the patient Vape? No Does the patient currently smoke? No ASSESSMENT AND PLAN: # No active use MEDICATIONS Current Outpatient Medications Medication Sig Acetaminophen (TYLENOL ARTHRITIS PAIN PO) Take by mouth. 3-4 tabs prn acetaminophen 500 MG tablet Take 2 tablets by mouth 3 times daily. Please start the evening of surgery (Patient taking differently: Take 3 tablets by mouth at bedtime.) DULoxetine [address] Particles capsule DR Take 1 capsule by mouth daily every morning. gabapentin 600 MG tablet Take 1 tablet by mouth 3 times daily. losartan 50 MG PO TABS Take 1 tablet by mouth daily every morning. magnesium oxide 400 MG tablet Take 1 tablet by mouth daily every morning. metoprolol 25 MG tab regular release Take 0.5 tablets by mouth daily every morning. MOMETASONE FUROATE NA by Nasal route as needed.. omeprazole [address] Take 1 capsule by mouth daily every morning. Tamsulosin HCl 0.4 MG capsule Take 1 capsule by mouth daily with lunch. VITAMIN D PO Take 1 capsule by mouth daily every morning. XARELTO 20 MG Take 1 tablet by mouth daily every morning. Last dose 10/15/2024 AM acetaminophen 325 MG tablet Take 1 tablet by mouth every 4 hours. (Patient not taking: Reported on 08/12/2024) DULoxetine [address] Particles capsule DR Take 1 capsule by mouth daily. (Patient not taking: Reported on 10/15/2024) Gabapentin 300 MG capsule Take 1 capsule by mouth 3 times daily. (Patient not taking: Reported on 10/15/2024) Mupirocin 2 % ointment Apply a small amount in each nostril twice daily for 5 days prior to surgery. (Patient not taking: Reported on 08/12/2024) mupirocin 2% Ointment 1 Application by Nasal route every 8 hours. Apply a small amount in each nostril twice daily for 5 days prior to surgery. oxyCODONE 5 MG tablet Take 1-2 tablets by mouth every 4 hours as needed for Severe Pain for up to 5days. Please start the evening of surgery (Patient not taking: Reported on 08/21/2024) Medication A/P - Instructions for preoperative medications given to the patient in AVS. LABS Orders Placed This Encounter SCREEN: MRSA/MSSA ALBUMIN C REACTIVE PROTEIN CALCIUM CBC, EDIF, PLATELET CHEM 7 (LYTES,BUN,CREA,GLUC) HEMOGLOBIN A1C MAGNESIUM NICOTINE SCREEN URINE PT,INR,PTT SEDIMENTATION RATE, AUTOMATED ECG Type and Cross -Preadmission mupirocin 2% Ointment Lab A/P - Lab Results Component Value Date SODIUM 141 10/15/2024 POTASSIUM 4.5 10/15/2024 CHLORIDE 103 10/15/2024 CO2 28 10/15/2024 BUN 21 10/15/2024 CREATSERUM 1.04 10/15/2024 GLUCOSE 80 10/15/2024 Lab Results Component Value Date WBC 5.66 10/15/2024 HGB 16.0 10/15/2024 HCT 48.2 10/15/2024 PLATELET 211 10/15/2024 MCV 90.6 10/15/2024 Lab Results Component Value Date INR 1.4 (H) 10/15/2024 INR 1.0 04/23/2024 INR 1.0 12/29/2016 PT 17.0 (H) 10/15/2024 PT 13.4 04/23/2024 PT 13.2 12/29/2016 Thank you for allowing us to participate in the care of Malvin Mirelesman. Total time spent on the day of patient's visit was 45 minutes. This includes but is not limited to time spent preparing to see the patient, precharting, reviewing outside medical records, time spent in the patient's room doing a history and physical exam along with medication education, ordering lab test and requesting medical information as well as interpreting lab results and testing completed at [facility] and outside facilities through Care Everywhere. All the labs reviewed have been summarized and included in my history above. Note to patient: The Cures Act makes medical notes like these available to patients inthe interest of transparency. However, be advised this is a medical document. It is intended as flmb-cm-nexa communication. It is written in medical language and may contain abbreviations or verbiagethat are unfamiliar. It may appear blunt or direct. Medical documents are intended to carry relevant information, facts as evident, and the clinical opinion of the practitioner. [employer] dictation software may have been used to write this note. Please excuse any errors that may have occurred as a result of the dictation. Cecelia Wright PA-C [facility] [place] [id number] [address] Review of Systems (OSUROS) The patient denies any chest pain on exertion, shortness of breath, orthopnea or palpitation ROS also negative for fever, chills, headache, dizziness, cough, sputum, nausea, vomiting, diarrhea, constipation, dysuria, hematuria, rashes or easy bleeding. All other systems were reviewed and were negative Physical Examination (PHYSEXAM) Blood pressure 122/75, pulse 58, temperature 97.5 F (36.4 C), temperature source Temporal, resp. rate 14, height 1.778 m (5' 10), weight 86.2 kg (190 lb), SpO2 97%. General:69 y.o. male in NAD, alert and oriented x 3 HEENT: Normocephalic, EOMI, moist mucous membranes noted. Pulmonary: bilateral breath sounds, clear to auscultation, no use of accessory muscles, no wheezes/rhonchi/rales Cardiovascular:Regular rate and rhythm. Normal S1, S2, No murmurs, rubs or gallops Abdomen: soft, nontender, nondistended, normoactive bowel sounds, Extremities: No cyanosis, clubbing or edema. Normal peripheral pulses noted. Neuro: Cranial nerves are grossly intact, No focal deficits noted, moving all 4 extremities. Skin: warm, dry, intact; no erythema or rash Past Medical History: Diagnosis Date Chicken pox Deep vein thrombosis (DVT) 04/2024 left leg Factor II deficiency Gastroesophageal reflux GERD (gastroesophageal reflux disease) [place] measles screening History of seasonal allergies Hypertension Measles Mumps Pulmonary embolism x2 Past Surgical History: Procedure Laterality Date IVC FILTER PLACEMENT 04/2024 ARTHROSCOPY SHOULDER W/ ROTATOR CUFF REPAIR Left 02/24/2020 Laterality: Left; Surgeon: Seth Olvera MD; Location: [facility] ARTHROSCOPY SHOULDER W/ DEBRIDEMENT Left 02/24/2020 Laterality: Left; Surgeon: Seth Olvera MD; Location: [facility] ARTHROSCOPY SHOULDER W/ SUBACROMIAL DECOMPRESSION/ACROMIOPLASTY ADD-ON Left 02/24/2020 Laterality: Left; Surgeon: Seth Olvera MD; Location: [facility] RESECTION/TRANSPLANTATION BICEPS LONG TENDON Left 02/24/2020 Laterality: Left; Surgeon: Seth Olvera MD; Location: [facility] HIP REPLACEMENT Left 2018 Done in [place] ARTHROSCOPY SHOULDER W/ ROTATOR CUFF REPAIR Right [...] MCL recon ACL RECONSTRUCTION 1997 Right knee Patient Care Team: Kayla Erwin MD as PCP - General (Family Medicine) Family History Problem Relation Age of Onset Hypertension Father Cancer- Other Father brain Bleeding or Clotting Problems Father Hypertension Mother Neurologic Disease Mother cognitive problems, hydrocephalus Bleeding or Clotting Problems Daughter Bleeding or Clotting Problems Daughter Bleeding or Clotting Problems Daughter Aneurysm Neg Hx Myocardial Infarction Neg Hx Stroke Neg Hx Diabetes Neg Hx Heart Failure Neg Hx Dysrhythmia Neg Hx Social History Socioeconomic History Marital status: Tobacco Use Smoking status: Never Smokeless tobacco: Never Vaping Use Vaping status: Never Used Substance and Sexual Activity Alcohol use: No Drug use: No Sexual activity: Not Currently Partners: Female control/protection: [facility] [place] Instructions* Patient Instructions* Cecelia Wright PA-C - 10/15/2024 11:00 AM EDT PRIOR TO SURGERY INSTRUCTIONS Please follow these instructions prior to surgery to help us minimize delays and complications to your surgery THE FOLLOWING MEDICATIONS LABS, STUDIES, AND CONSULTATIONS WERE ORDERED TODAY: No orders of the defined types were placed in this encounter. PREOPERATIVE MEDICATION INSTRUCTIONS Below are instructions for what to do with your medicines before your surgery/procedure. Take the medications marked take the morning of surgery/procedure with a sip of water. Please follow this table below for instructions on which medications to hold prior to surgery If you have a change in daily medications prior to surgery/procedure, call the [facility] at [phone]. Current Outpatient Medications Medication Sig Acetaminophen (TYLENOL ARTHRITIS PAIN PO) Take by mouth. 3-4 tabs prn Ok to take morning of surgery acetaminophen 500 MG tablet Take 2 tablets by mouth 3 times daily. Please start the evening of surgery (Patient taking differently: Take 3 tablets by mouth at bedtime.) Ok to take morning of surgery DULoxetine [address] Particles capsule DR Take 1 capsule by mouth daily every morning. Ok to take morning of surgery gabapentin 600 MG tablet Take 1 tablet by mouth 3 times daily. Ok to take morning of surgery losartan 50 MG PO TABS Take 1 tablet by mouth daily every morning. Do not take 24 hours prior to surgery magnesium oxide 400 MG tablet Take 1 tablet by mouth daily every morning. Do Not take the morning of surgery metoprolol 25 MG tab regular release Take 0.5 tablets by mouth daily every morning. Ok to take morning of surgery MOMETASONE FUROATE NA by Nasal route as needed.. Ok to take morning of surgery omeprazole 40 MG Cap Take 1 capsule by mouth daily every morning. Ok to take morning of surgery Tamsulosin HCl 0.4 MG capsule Take 1 capsule by mouth daily with lunch. Ok to take morning of surgery VITAMIN D PO Take 1 capsule by mouth daily every morning. Do Not take the morning of surgery XARELTO 20 MG Take 1 tablet by mouth daily every morning. Last dose 10/15/2024 AM Do not take 48 hours prior to surgery Last dose 10/26/2024 DO NOT take Excedrin, ibuprofen, Advil, Voltaren (Diclofenac), Motrin, naproxen, or Aleve, Mobic (Meloxicam) for the 5 days before surgery. Acetaminophen (Tylenol) is ok to take up until the day of surgery for pain control. Unless otherwise directed by your healthcare provider- It is okay to take Tylenol 1000 mg every 8 hours. OTHER MEDICATIONS: If you are on or have recently been started on any injectable medications for diabetes or weight loss (see list below), please call our office at [phone] for instructions on what to do with those medications. Your surgery is likely to get rescheduled or delayed if this medication is taken within a week of your surgery. exenatide (brand names Byetta and Bydureon) liraglutide (Victoza for diabetes, Saxenda for obesity) albiglutide (Tanzeum) dulaglutide (Trulicity) lixisenatide (Adlyxin) semaglutide (Ozempic and Rybelsus for diabetes, Wegovy for obesity) tirzepatide (dual GLP-1 and GIP agonist; Mounjaro for diabetes, Zepbound for obesity) VITAMINS & HERBALS Do NOT take herbal medications or vitamins such as, but not limited to garlic, glucosamine -chondroitin, gingko, ginseng, probiotics, or multivitamins) 2 weeks before surgery unless your surgeon instructed differently. If your Medical Doctor has prescribed vitamins or herbal supplements due to a medical condition such as malabsorption issues, only hold the day of surgery. DIET INSTRUCTIONS: NO food or drink after 11 pm the night before surgery except for enough water to take your medications. (No Candy, Mints and/or Gum). If your surgeon has given you special shakes to take prior to surgery, it is okay to take them and follow those instructions OTHER PREOPERATIVE INSTRUCTIONS: PREOPERATIVE INSTRUCTIONS: If additional testing has been ordered by [facility] outside of what can be done today after your visit, we will contact you with an appointment date, location and time for this testing. Please complete this testing as it would be vital to proceeding with your surgery. Any delays in testing could result in delays in your surgery. Please bring remote/s for any devices that you may have implanted like ICDs, pacemakers, nerve stimulators (deep brain, vagus, pudendal, hypoglossal, sacral or spinal) Do not wear any jewelry, watches, rings, hairpieces, makeup, dentures, glasses or contact lenses onday of surgery. Do not wear artificial nails or nail sammarinese the day of surgery. Do NOT bring your hearing aids or dentures or partials with you into surgery. They may get lost. Give them to someone to bring to you after surgery Shower the night before and the morning of surgery. If we have provided you with a special soap, follow those directions. AVOID using surgical soap around eyes, ears, nose, mouth, and genital areas Avoid any creams, ointments or deodorant on the morning of surgery Do not shave, or pluck hair from anywhere near the surgical site for 1 week prior to surgery. [place] your teeth and rinse your mouth the morning of surgery. Avoid Swallowing toothpaste. If you are a female, under the age of 60, you may be required to provide a urine specimen the morning of surgery. DO NOT DRINK ALCOHOL for at least 24 hours prior to surgery. AVOID USING NICOTINE or TOBACCO of any form around the time of surgery. This includes but not limited to: Smoking, Cigarettes, Vaping, Chewing/Rubbing Tobacco and Nicorette Gum. If you smoke, we recommend that you quit smoking at least 2 weeks prior to surgery as nicotine products can impair wound healing. Your anesthesia team recommends that you have no nicotine in your system for at least 24 hours (at a minimum) prior to anesthesia. Your surgery could get cancelled at your surgeon's discretion if you do not follow these instructions AVOID MARIJUANA USE for at least 72 hours prior to surgery. Arriving to surgery intoxicated or under the influence of recreational drugs may result in cancellation of procedure. If you have a cold or flu symptoms, recently hospitalized or new diagnosis, please contact your surgeon s office before your procedure. If you become ill, develop a fever, cough, develop any type of infection, or are admitted to the hospital for any reason within 14 days of your scheduled surgery, please notify our team ([facility]) and your surgeon's office. You may need to have your surgery moved, as we would not want to put you at risk for complications, You MUST arrange for a responsible adult to drive you to your procedure, stay for the surgery, listen to discharge instructions, and drive you home after surgery, otherwise your surgery may be cancelled. [facility] [address] [address] Parking: Lead Installer or [employer] Gar[employer] Phone-Main OR [phone]-Ask for the Surgery Department Please call for any questions, delay of arrival, cancellation, or illness on the day of surgery. [facility] [address] [facility] 1st Floor Surgery Center [place], [place] [address] Please call for any questions, delay of arrival, cancellation, or illness on the day of surgery. [facility] [address] [facility]. [place], [place] [address] Please call for any questions, delay of arrival, cancellation, or illness on the day of surgery. [facility] [place] [address] [place], [place] [address] Please call for any questions, delay of arrival, cancellation, or illness on the day of surgery. PLEASE BRING YOUR MEDICATIONS WITH YOU IN THE ORIGINAL BOTTLES, ON THE DAY OF SURGERY. [facility] [address] [place] [address] Please call for any questions, delay of arrival, cancellation, or illness on the day of surgery. PLEASE BRING YOUR MEDICATIONS WITH YOU IN THE ORIGINAL BOTTLES, ON THE DAY OF SURGERY. [facility] [address] [place], [place] [address] Please call for any questions, delay of arrival, cancellation, or illness on the day of surgery. [facility] [place] [address] [place], [place] [address] Please call for any questions, delay of arrival, cancellation, or illness on the day of surgery. [facility] [phone] documented in [facility] [place] History of Present illness Narrative* Ken Quintanilla MD - 08/21/2024 10:00 AM EDT History & Physical Name: Malvin Roblero : 1955 Age: 68 y.o. 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 About 3 months ago, the patient developed worsening mechanical back pain and left lower extremity pain that radiates down the back of the leg into the calf. He also has chronic right hip pain and is undergoing consideration of a KEYA. Due to his anticoagulation use and significant clotting history when that's withheld, he has been unable to obtain interventional pain procedures to address his pain. Since our last visit, the patient reports that his pain is better controlled after being on cymbalta and gabapentin. He is experiencing some side effects of the cymbalta and is trying to tirate the dose. He would like to discuss surgical options. Review of Systems: 14-point review of systems negative except for findings noted in HPI HISTORY: ALLERGIES: Cyclobenzaprine, Ketorolac tromethamine, Meloxicam, Orphenadrine, Penicillin g, and Triamcinolone MEDICATIONS: Current Outpatient Medications Medication Sig Last Dose Start Date End Date Authorizing Provider DULoxetine [address] Particles capsule DR 30 mg, DAILY Taking Historical Provider Gabapentin 300 MG capsule 300 mg, 3 TIMES DAILY Taking Historical Provider losartan 50 MG PO TABS 1 tablet, DAILY Taking Historical Provider magnesium oxide 400 MG tablet 400 mg, DAILY EVERY MORNING Taking Historical Provider metoprolol 25 MG tab regular release 25 mg, DAILY EVERY MORNING Taking Historical Provider MOMETASONE FUROATE NA NEEDED Taking Historical Provider omeprazole [address] 40 mg, DAILY EVERY MORNING Taking Historical Provider VITAMIN D PO 1 capsule, DAILY EVERY MORNING Taking Historical Provider XARELTO 20 MG 20 mg, DAILY Taking 11/10/16 Historical Provider Acetaminophen (TYLENOL ARTHRITIS PAIN PO) Take by mouth. 3-4 tabs prn Patient not taking: Reported on 08/21/2024 Not Taking Historical Provider acetaminophen 325 MG tablet 325 mg, EVERY 4 HOURS Patient not taking: Reported on 08/21/2024 Not Taking Historical Provider acetaminophen 500 MG tablet 1,000 mg, Oral, 3 TIMES DAILY, Please start the evening of surgery Patient not taking: Reported on 08/21/2024 Not Taking 04/25/24 Shaila Walters PA-C Mupirocin 2 % ointment Apply a small amount in each nostril twice daily for 5 days prior to surgery. Patient not taking: Reported on 08/21/2024 Not Taking 04/23/24 Radha Blanco APRN-RAULITO oxyCODONE 5 MG tablet 5-10 mg, Oral, EVERY 4 HOURS NEEDED, Please start the evening of surgery Patient not taking: Reported on 08/21/2024 Not Taking 04/25/24 04/30/24 Shaila Walters PA-C PAST MEDICAL HISTORY: Past Medical History: Diagnosis Date Chicken pox Factor II deficiency Gastroesophageal reflux GERD (gastroesophageal reflux disease) [place] measles screening History of seasonal allergies Hypertension Measles Mumps Pulmonary embolism PAST SURGICAL HISTORY: Past Surgical History: Procedure Laterality Date ARTHROSCOPY SHOULDER W/ ROTATOR CUFF REPAIR Left 02/24/2020 Laterality: Left; Surgeon: Seth Olvera MD; Location: [facility] PERIOP ARTHROSCOPY SHOULDER W/ DEBRIDEMENT Left 02/24/2020 Laterality: Left; Surgeon: Seth Olvera MD; Location: [facility] PERIOP ARTHROSCOPY SHOULDER W/ SUBACROMIAL DECOMPRESSION/ACROMIOPLASTY ADD-ON Left 02/24/2020 Laterality: Left; Surgeon: Seth Olvera MD; Location: [facility] PERIOP RESECTION/TRANSPLANTATION BICEPS LONG TENDON Left 02/24/2020 Laterality: Left; Surgeon: Seth Olvera MD; Location: [facility] PERIOP HIP REPLACEMENT Left 2018 Done in [place] ARTHROSCOPY SHOULDER W/ ROTATOR CUFF REPAIR Right 12/29/2016 Laterality: Right; Surgeon: Seth Olvrea MD; Location: [facility] MAIN OR ARTHROSCOPY SHOULDER W/ BICEPS TENODESIS Right 12/29/2016 Laterality: Right; Surgeon: Seth Olvera MD; Location: [facility] ARTHROSCOPY SHOULDER W/ DEBRIDEMENT Right 12/29/2016 Laterality: Right; Surgeon: Seth Olvera MD; Location: [facility] OR ARTHROSCOPY SHOULDER W/ SUBACROMIAL DECOMPRESSION/ACROMIOPLASTY ADD-ON Right 12/29/2016 Laterality: Right; Surgeon: Seth Olvera MD; Location: [facility] MAIN OR ACL RECONSTRUCTION 2006 Left Knee ACL, MCL recon ACL RECONSTRUCTION 1998 Right knee FAMILY HISTORY: Family History Problem Relation Age of Onset Hypertension Father Cancer- Other Father brain Bleeding or Clotting Problems Father Hypertension Mother Neurologic Disease Mother cognitive problems, hydrocephalus Bleeding or Clotting Problems Daughter Bleeding or Clotting Problems Daughter Bleeding or Clotting Problems Daughter Aneurysm Neg Hx Myocardial Infarction Neg Hx Stroke Neg Hx Diabetes Neg Hx Heart Failure Neg Hx Dysrhythmia Neg Hx SOCIAL HISTORY: reports that he has never smoked. He has never used smokeless tobacco. He reports that he does not drink alcohol and does not use drugs. OBJECTIVE: Vitals: 08/21/24 0934 BP: 119/87 Pulse: 51 Resp: 16 SpO2: 97% Weight: 88 kg (194 lb) Height: 1.791 m (5' 10.5) PHYSICAL EXAM: General: Patient is well appearing and in no apparent distress. AOX3 Neuro: Eyes open spontaneously Pupils: 4 mm and reactive bilaterally Oriented to person, place, and time Face symmetric Upper Extremities: deltoid bicep tricep Wrist ext Head Of Talent Management Hand IO right 5/5 5/5 5/5 5/5 5/5 5/5 left 5/5 5/5 5/5 5/5 5/5 5/5 Lower extremities: Hip flex Quad Hamstr Joselyn flex Plantar flex EHL toes right 5/5 5/5 5/5 5/5 5/5 5/5 5/5 left 5/5 5/5 5/5 5/5 5/5 5/5 5/5 Reflexes: 2+ in biceps, patella Ruffin's: negative bilaterally Ankle Clonus: Negative IMAGING STUDIES: These were personally reviewed and the reads below are my own interpretations MRI L-spine 06/15/2024: Grade 1 anterolisthesis of L4-5. Severe left L4-5 facet arthropathy with a hypertrophic facet joint. Severe left L4-5 neuroforaminal stenosis. ASSESSMENT & PLAN: Principal Problem: Lumbar neuroforaminal stenosis with radiculopathy Facet arthropathy and facetogenic back pain Plan: Malvin Roblero presents with focal back pain and leg pain that is likely due to the degenerative changes seen at L4-5. I favor deferring surgery as long as possible due to his high urban-operative risk. Should his pain control measures fail, we would then likely proceed with a minimally invasive laminectomy at L4-5, knowing that the risk is potential future need for an interbody fusion. Thepatient agrees and will keep I touch with us should his symptoms worsen. Ken Quintanilla MD Glass Block Bender Department of Neurosurgery [facility] documented in this encounterU [facility]03-[facility] History of Present illness Narrative* Starr Lino PA-C - 08/12/2024 2:00 PM EDT Hematology Clinic Hemostasis and Thrombosis DISEASE HISTORY: 03/2015 PE, Unprovoked -History: Per patient, he was evaluated at OSH ( [place]) for an unprovoked PE. Pt recalls being onLovenox initially then transitioned to Xarelto for a total of 6 months. -Provoking Factors: prolonged travel >4h (-), immobilization (-), trauma (-), surgery (-), infection/inflammation (-) -Risk Factors: Tobacco (-), hormonal therapy (-), BMI>30 (?), Malignancy/Chemotherapy (-) 10/2015 L PE -History: Per patient, he was found to have a L PE. 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 Was discharged on Xarelto. 02/2024- Per patient, had presented with R hip pain. Pt was on Xarelto 10 mg daily at this time. Was found to have a R iliacus muscle bleed, and a torn muscle. Therefore Xarelto was stopped. 04/2024 LLE DVT -History: Per patient and chart review, pt had presented with back pain, and swelling of the lower extremities. Was found to have a L popliteal vein, L tibioperoneal trunk, L posterior tibial peroneal and L soleus vein. IVC filter was placed 05/20/2024, and pt was restarted on Xarelto. -Personal History of prior VTE: Denies VTE prior to 2014 -Family History of VTE: Father with VTE. Daughter with VTE in the setting of injury. -Anticoagulation: Xarelto 20 mg daily -Anticoagulation complications: 02/2024 R iliacus muscle bleed. Denies nosebleeds, blood in urine or stool. Denies increase in bruising or bleeding from minor cuts/injury. -Work up/Follow-up: Not available in current EMR HISTORY: Patient presents to clinic appointment with . Compliant with his Xarelto, did have a muscle bleed in 02/2024, otherwise denies other overt bleeding issues. Pt had L hip replacement in 03/2018, recalls hold Xarelto 1-2 days before and restarted 24 hours later, did have some more bleeding than expected, developed a hematoma. R shoulder surgery 201, recalls temporarily holding anticoagulation without bleeding issues. L shoulder surgery 02/2020, temporarily held anticoagulation, does not recall bleeding issues. Pt suspects he will be needing a few orthopedic surgeries in the next year or so. R hip, R knee, and then back surgery. Will be having upcoming epidural injection for back pain. Past Medical History: Diagnosis Date Chicken pox Factor II deficiency Gastroesophageal reflux GERD (gastroesophageal reflux disease) [place] measles screening History of seasonal allergies Hypertension Measles Mumps Pulmonary embolism Past Surgical History: Procedure Laterality Date ARTHROSCOPY SHOULDER W/ ROTATOR CUFF REPAIR Left 02/24/2020 Laterality: Left; Surgeon: Seth Olvera MD; [facility] ARTHROSCOPY SHOULDER W/ DEBRIDEMENT Left 02/24/2020 Laterality: Left; Surgeon: Seth Olvera MD; [facility] ARTHROSCOPY SHOULDER W/ SUBACROMIAL DECOMPRESSION/ACROMIOPLASTY ADD-ON Left 02/24/2020 Laterality: Left; Surgeon: Seth Olvera MD; [facility] PER[facility] RESECTION/TRANSPLANTATION BICEPS LONG TENDON Left 02/24/2020 Laterality: Left; Surgeon: Seth Olvera MD; [email or web address] PER[facility]OP HIP REPLACEMENT Left 2018 Done in [place] ARTHROSCOPY SHOULDER W/ ROTATOR CUFF REPAIR Right [...] recon ACL RECONSTRUCTION 1997 Right knee Family History Problem Relation Age of Onset Hypertension Father Cancer- Other Father brain Bleeding or Clotting Problems Father Hypertension Mother Neurologic Disease Mother cognitive problems, hydrocephalus Bleeding or Clotting Problems Daughter Bleeding or Clotting Problems Daughter Bleeding or Clotting Problems Daughter Aneurysm Neg Hx Myocardial Infarction Neg Hx Stroke Neg Hx Diabetes Neg Hx Heart Failure Neg Hx Dysrhythmia Neg Hx Social History Tobacco Use Smoking status: Never Smokeless tobacco: Never Vaping Use Vaping status: Never Used Substance Use Topics Alcohol use: No Drug use: No Review of Systems Constitutional: Negative for malaise/fatigue. HENT: Negative for nosebleeds. Cardiovascular: Negative for chest pain, dyspnea on exertion and leg swelling. Respiratory: Negative for hemoptysis and shortness of breath. Hematologic/Lymphatic: Does not bruise/bleed easily. Musculoskeletal: Positive for back pain and joint pain. Gastrointestinal: Negative for abdominal pain, hematemesis, hematochezia and melena. Genitourinary: Negative for hematuria. Outpatient Medications Prior to Visit Medication Sig Dispense Refill DULoxetine [address] Particles capsule DR Take 1 capsule by mouth daily. Gabapentin 300 MG capsule Take 1 capsule by mouth 3 times daily. losartan 50 MG PO TABS Take 1 tablet by mouth daily. magnesium oxide 400 MG tablet Take 1 tablet by mouth daily every morning. metoprolol 25 MG tab regular release Take 1 tablet by mouth daily every morning. MOMETASONE FUROATE NA by Nasal route as needed.. omeprazole [address] Take 1 capsule by mouth daily every morning. VITAMIN D PO Take 1 capsule by mouth daily every morning. XARELTO 20 MG Take 1 tablet by mouth daily. Has not taken since 02/2024 Acetaminophen (TYLENOL ARTHRITIS PAIN PO) Take by mouth. 3-4 tabs prn (Patient not taking: Reportedon 08/21/2024) acetaminophen 325 MG tablet Take 1 tablet by mouth every 4 hours. (Patient not taking: Reported on 08/21/2024) acetaminophen 500 MG tablet Take 2 tablets by mouth 3 times daily. Please start the evening of surgery (Patient not taking: Reported on 08/21/2024) 100 tablet 0 Mupirocin 2 % ointment Apply a small amount in each nostril twice daily for 5 days prior to surgery. (Patient not taking: Reported on 08/21/2024) 22 g 0 oxyCODONE 5 MG tablet Take 1-2 tablets by mouth every 4 hours as needed for Severe Pain for up to 5days. Please start the evening of surgery (Patient not taking: Reported on 08/21/2024) 60 tablet 0 No facility-administered medications prior to visit. PHYSICAL EXAM: Vitals: 08/12/24 1411 BP: 116/70 Pulse: 64 Resp: 20 Temp: 98.1 degrees F (36.7 degrees C) TempSrc: Oral SpO2: 98% Weight: 87.7 kg (193 lb 6.4 oz) Height: 1.791 m (5' 10.5) Physical Exam Constitutional: General: He is not in acute distress. Appearance: Normal appearance. He is not toxic-appearing. HENT: Head: Normocephalic and atraumatic. Eyes: Comments: EOMs intact to tracking examiner in room Cardiovascular: Rate and Rhythm: Normal rate and regular rhythm. Heart sounds: Normal heart sounds. Pulmonary: Effort: Pulmonary effort is normal. Breath sounds: Normal breath sounds. Abdominal: General: Bowel sounds are normal. There is no distension. Palpations: Abdomen is soft. Tenderness: There is no abdominal tenderness. Musculoskeletal: General: No swelling or tenderness. Skin: General: Skin is warm and dry. Neurological: Mental Status: He is alert. Psychiatric: Mood and Affect: Mood normal. 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 May be considered for prophylactic dosing. Continue Xarelto 20 mg daily with food Will request for outside records for VTE events. Will need to clarify IVC filter status Telephone in 3 months to discuss the above. RTC [address] Navarro. Pt will contact clinic for further VTE events, bleeding issues, upcoming procedures/surgeries. Starr Lino PA-C Hematology * Miah Medeiros RN - 08/12/2024 2:00 PM EDT Hx of blood clots with possible provoking factors (long travel, surgeries, travel, hormones, smoking): Bilateral lungs x2 in 2014 LLE DVT in April 2024 while being off of Xarelto Resolution of symptoms?: No swelling or shortness of breath noted Family Hx of blood clots: Father and daughter have history of blood clots. Daughter is no long on anticoagulation. Compliance with bloodthinners/affordable: Xarelto 20 mg daily. Any planned surgeries/procedures/dental work?: Needs a right hip and left knee replacement. Also needs back surgery. Nothing scheduled at this time. Location of clots/records as needed for workup: Hematology in [place], [place] * Eleuterio Faulkner RN - 08/12/2024 2:00 PM EDT OLAYINKA is faxed to Dr. Vann , Oncology and Hematology in [place] in fax# [phone]. Fax confirmation is received . documented in this [facility] [place] Instructions* Patient Instructions* Eleuterio Faulkner RN - 08/12/2024 2:00 PM EDT No AVLs Continue with Xarelto daily with food Will request outside records Tele video 3 months with FRANCISCO clements (mon/) RTC [address] Navarro . Provider: Starr Lino PA-C Primary Nurse: Eleuterio Associate Nurse: Miah IMPORTANT: SURGICAL CLEARANCE: We MUST receive 2 WEEKS notice prior to any dental procedures, births, surgeries, and other procedures for Hematology clearance from our office. If you have not been seen by our office in over a yearwe cannot legally provide clearance. Failure to provide sufficient notice of at least two weeks prior may result in your surgery or procedure being delayed. Don't wait, communicate! Call [phone] let our office know about what the procedure is for and where to send the clearance to as soon as you are aware. Thank you. Medication refills Please allow 1 week for all medication refills. You may request refills via [employer] or by calling [phone]. Paperwork Please allow 2 weeks to complete disability, FMLA, and insurance paperwork. Please clarify what to do once they are completed, including any fax numbers or addresses needed. [facility] [employer] is a secure way to get access to your labs online. Once you're online, you may need to send a message to the office to release results so that you can review the results of your blood tests. For non-emergent concerns, please send us a [employer] message but describe your issue fully. As an example, tell us how long you've had the symptom, what makes it better or worse, what you've done for it already) and one of our nurses or nurse practitioners will respond kayleigh. For questions or concerns regarding [employer] access or technical dificulties, please call [phone] or toll free at . Appointment's/ No show visits If you arrive late to your scheduled appointment, you may be asked to reschedule your visit. Pleasecall [phone] at least 24 hours in advance if you are not able to make it to your scheduled visit. If you have three no show visit's within one year, you will be discharged from our practice. documented in this encounterOSU [facility] History of Present illness Narrative* Keyla Velarde - 07/10/2024 10:00 AM EST 2-step identification process completed. Patients name and verified. * Ken Quintanilla MD - 07/10/2024 10:00 AM EST History & Physical Name: Malvin Roblero : 1955 Age: 68 y.o. 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 About 3 months ago, the patient developed worsening mechanical back pain and left lower extremity pain that radiates down the back of the leg into the calf. He also has chronic right hip pain and is undergoing consideration of a KEYA. Due to his anticoagulation use and significant clotting history when that's withheld, he has been unable to obtain interventional pain procedures to address his pain. Review of Systems: 14-point review of systems negative except for findings noted in HPI HISTORY: ALLERGIES: Cyclobenzaprine, Ketorolac tromethamine, Meloxicam, Orphenadrine, Penicillin g, and Triamcinolone MEDICATIONS: Current Outpatient Medications Medication Sig Last Dose Start Date End Date Authorizing Provider Acetaminophen (TYLENOL ARTHRITIS PAIN PO) Take by mouth. 3-4 tabs prn Taking Historical Provider acetaminophen 325 MG tablet 325 mg, EVERY 4 HOURS Taking Historical Provider acetaminophen 500 MG tablet 1,000 mg, Oral, 3 TIMES DAILY, Please start the evening of surgery Taking 04/25/24 Shaila Walters PA-C Gabapentin 300 MG capsule 300 mg, 3 TIMES DAILY Taking Historical Provider losartan 50 MG PO TABS 1 tablet, DAILY Taking Historical Provider magnesium oxide 400 MG tablet 400 mg, DAILY EVERY MORNING Taking Historical Provider metoprolol 25 MG tab regular release 25 mg, DAILY EVERY MORNING Taking Historical Provider MOMETASONE FUROATE NA NEEDED Taking Historical Provider Mupirocin 2 % ointment Apply a small amount in each nostril twice daily for 5 days prior to surgery. Taking 04/23/24 Radha Blanco APRN-RAULITO omeprazole [address] 40 mg, DAILY EVERY MORNING Taking Historical Provider VITAMIN D PO 1 capsule, DAILY EVERY MORNING Taking Historical Provider XARELTO 20 MG 20 mg, DAILY Taking 11/10/16 Historical Provider oxyCODONE 5 MG tablet 5-10 mg, Oral, EVERY 4 HOURS NEEDED, Please start the evening of surgery 04/25/24 04/30/24 Shaila Walters PA-C PAST MEDICAL HISTORY: Past Medical History: Diagnosis Date Chicken pox Factor II deficiency Gastroesophageal reflux GERD (gastroesophageal reflux disease) [place] measles screening History of seasonal allergies Hypertension Measles Mumps Pulmonary embolism PAST SURGICAL HISTORY: Past Surgical History: Procedure Laterality Date ARTHROSCOPY SHOULDER W/ ROTATOR CUFF REPAIR Left 02/24/2020 Laterality: Left; Surgeon: Seth Olvera MD; Location: [facility]IOP ARTHROSCOPY SHOULDER W/ DEBRIDEMENT Left 02/24/2020 Laterality: Left; Surgeon: Seth Olvera MD; Location: [facility] ARTHROSCOPY SHOULDER W/ SUBACROMIAL DECOMPRESSION/ACROMIOPLASTY ADD-ON Left 02/24/2020 Laterality: Left; Surgeon: Seth Olvera MD; Location: [facility] PERIOP RESECTION/TRANSPLANTATION BICEPS LONG TENDON Left 02/24/2020 Laterality: Left; Surgeon: Seth Olvera MD; Location: [facility] HIP REPLACEMENT Left 2018 Done in [place] ARTHROSCOPY SHOULDER W/ ROTATOR CUFF REPAIR Right [...] MCL recon ACL RECONSTRUCTION 1997 Right knee FAMILY HISTORY: Family History Problem Relation Age of Onset Hypertension Father Cancer- Other Father brain Bleeding or Clotting Problems Father Hypertension Mother Neurologic Disease Mother cognitive problems, hydrocephalus Bleeding or Clotting Problems Daughter Bleeding or Clotting Problems Daughter Bleeding or Clotting Problems Daughter Aneurysm Neg Hx Myocardial Infarction Neg Hx Stroke Neg Hx Diabetes Neg Hx Heart Failure Neg Hx Dysrhythmia Neg Hx SOCIAL HISTORY: reports that he has never smoked. He has never used smokeless tobacco. He reports that he does not drink alcohol and does not use drugs. OBJECTIVE: Vitals: 07/10/24 1105 BP: 125/85 Pulse: 54 TempSrc: Temporal SpO2: 97% Weight: 86.6 kg (190 lb 14.4 oz) Height: 1.778 m (5' 10) PHYSICAL EXAM: General: Patient is well appearing and in no apparent distress. AOX3 Neuro: Eyes open spontaneously Pupils: 4 mm and reactive bilaterally Oriented to person, place, and time Face symmetric Upper Extremities: deltoid bicep tricep Wrist ext Head Of Talent Management Hand IO right 5/5 5/5 5/5 5/5 5/5 5/5 left 5/5 5/5 5/5 5/5 5/5 5/5 Lower extremities: Hip flex Quad Hamstr Joselyn flex Plantar flex EHL toes right 5/5 5/5 5/5 5/5 5/5 5/5 5/5 left 5/5 5/5 5/5 5/5 5/5 5/5 5/5 Reflexes: 2+ in biceps, patella Ruffin's: negative bilaterally Ankle Clonus: Negative IMAGING STUDIES: These were personally reviewed and the reads below are my own interpretations MRI L-spine 06/15/2024: Grade 1 anterolisthesis of L4-5. Severe left L4-5 facet arthropathy with a hypertrophic facet joint. Severe left L4-5 neuroforaminal stenosis. ASSESSMENT & PLAN: Principal Problem: Lumbar neuroforaminal stenosis with radiculopathy Facet arthropathy and facetogenic back pain Plan: Malvin Roblero presents with focal back pain and leg pain that is likely due to the degenerative changes seen at L4-5. I favor deferring surgery as long as possible due to his high urban-operative risk. One option he can try is a medial branch block followed by ablation of the left L4-5 facetjoint. Given the location of the joint outside of the spinal canal, some providers may be willing to perform the procedure while he is on anticoagulation. We will place a referral to the spine center. Ken Quintanilla MD Glass Block Bender Department of Neurosurgery [facility] documented in this encounterU [facility]02-19-[facility] Instructions* Patient Instructions* Dipti Salmeron RN - 07/10/2024 10:00 AM EST You will be contacted with an appointment with [facility]. If you don't receive a call within a week please call our office [phone] so that we can assist with follow up. documented in this encounterOSU [facility]02[facility] History of Present illness Narrative* Santiago Schwarz MD - 07/08/2024 9:00 AM EST OFFICE Followup Chief Complaint: right Intractable Hip Pain, consultation for possible KEYA History Malvin Roblero is a 68 y.o. male who was previously scheduled for L TKA with Dr. Garcia in April 2024. This was cancelled as he developed a spontaneous R iliacus bleed in February 2024 on account of having Factor 2 on chronic blood thinners. His blood thinners were paused and he had a IVC filter installed, he is back on blood thinners now. He did develop R hip pain in about April and now presents for consultation of his R hip arthritis. He also developed LLE radicular pain in April, he saw [place] spine surgeon in [place] who recommendedinjections and to proceed with hip and/or knee surgery prior to any spine surgery. His pain management doctor is hesitant to provide any epidural injection due to his blood clot disorder. He has an upcoming 2nd opinion with an [facility] spine surgeon Dr. Quintanilla. H/o VTE: Yes H/o MRSA: No H/o [...] deficiency Gastroesophageal reflux GERD (gastroesophageal reflux disease) [place] measles screening History of seasonal allergies Hypertension Measles Mumps Pulmonary embolism Past Surgical History: Past Surgical History: Procedure Laterality Date ARTHROSCOPY SHOULDER W/ ROTATOR CUFF REPAIR Left 02/24/2020 Laterality: Left; Surgeon: Seth Olvera MD; Location: [facility] ARTHROSCOPY SHOULDER W/ DEBRIDEMENT Left 02/24/2020 Laterality: Left; Surgeon: Seth Olvera MD; Location: [facility] ARTHROSCOPY SHOULDER W/ SUBACROMIAL DECOMPRESSION/ACROMIOPLASTY ADD-ON Left 02/24/2020 Laterality: Left; Surgeon: Seth Olvera MD; Location: [facility] RESECTION/TRANSPLANTATION BICEPS LONG TENDON Left 02/24/2020 Laterality: Left; Surgeon: Seth Olvera MD; Location: [facility] HIP REPLACEMENT Left 2018 Done in [place] ARTHROSCOPY SHOULDER W/ ROTATOR CUFF REPAIR Right [...] Sexual Activity Alcohol use: No Drug use: Never Sexual activity: Not on file Other Topics Concern Not on file Social History Narrative Not on file Social Drivers of Health Financial Resource Strain: Not on [...] Medications: Current Outpatient Medications Medication Instructions Acetaminophen (TYLENOL ARTHRITIS PAIN PO) Oral, 3-4 tabs prn Acetaminophen (TYLENOL) 325 mg, EVERY 4 HOURS acetaminophen (TYLENOL) 1,000 mg, Oral, 3 TIMES DAILY, Please start the evening of surgery Gabapentin (NEURONTIN) 300 mg, Oral, 3 TIMES DAILY losartan 50 MG PO TABS 1 tablet, Oral, DAILY magnesium oxide (MAG-OX) 400 mg, Oral, DAILY EVERY MORNING Metoprolol (LOPRESSOR) 25 mg, Oral, DAILY EVERY MORNING MOMETASONE FUROATE NA Nasal, NEEDED Mupirocin 2 % ointment Apply a small amount in each nostril twice daily for 5 days prior to surgery. omeprazole (PRILOSEC) 40 mg, Oral, DAILY EVERY MORNING oxyCODONE (ROXICODONE) 5-10 mg, Oral, EVERY 4 HOURS NEEDED, Please start the evening of surgery VITAMIN D PO 1 capsule, Oral, DAILY EVERY MORNING Xarelto 20 mg, Oral, DAILY, Has not taken since 02/2024 Review of Systems: Please refer to the attached 12-point review of systems attached in the patient's intake sheet. Physical Exam General: Vitals: @VITALSBRIEF@ Appears stated age Affect - pleasant, alert and oriented Gait - antalgic right Hip: Appearance - normal skin with no scars Tenderness - groin Range of Motion: painful with IR, ER, and resisted SLR Crepitus - present Neurovascular: 5/5 strength in the hip abductor, flexor, quadriceps, hamstrings, tibialis anterior, gastroc-soleus, and EHL Sensation Intact L4-S1 Vascular - no edema, well-perfused, brisk capillary refill, warm toes, no lymphadenopathy Imaging AP Pelvis and AP / Lateral Hip radiographs performed on 06/21/24 demonstrate right joint space narrowing, cysts, osteophytes formation, subchondral sclerosis. Full limb length xrays demonstrate neutral deformity. There is approximately none seen. There is severe joint space narrowing, cysts, osteophytes formation, subchondral sclerosis of the bilateral knees noted. Assessment and Plan Malvin Roblero is a 68 y.o. male with degenerative joint disease of the right hip and bilateral knees. He was previously scheduled for L knee TKA however this was cancelled (described in HPI).His R hip has become more painful in the meantime and he has significant arthritis. In addition, hehas spinal pathology and will be seeing an [facility] spine surgeon soon. We discussed that we could pursue R KEYA if he would like. An injection to the spine would not delay timing for R KEYA. He would like to see the neurosurgeon first to discuss his spine. He can reach out to us if he would like to have R KEYA scheduled after this spine appointment and is welcome to see us as needed. Santiago Schwarz MD Orthopedic Surgery * Josue Garcia MD - 07/08/2024 9:00 AM EST I, Josue Garcia, examined the patient with the Resident Physician and agree with the assessment and plan in their note. Patient with symptomatic right hip OA. Also with left sided radicular symptoms. He will follow up with spine and determine if he would like to proceed with right KEYA. documented in this [facility]01-31-2025 History of Present illness Narrative* Ondina Velasco - 06/21/2024 11:00 AM EST Cardiac issues/complaints: Chest pain, SOB, difficulty breathing, palpitations, CAD, KY, stents, HF, POTS - no Lung problems: COPD, uncontrolled asthma - no Sleep Apnea - no Smoking/Nicotine use (KEYA candidates) - no Hx of clots: DVT, PE - yes Chronic use of Warfarin, comaudin, Eliquis, Xarelto - yes Hx of Stroke or TIA - no HX of Diabetes type 1 or type 2 (poorly uncontrolled, a1c > 8) - no * Suresh Escobedo MD - 06/21/2024 11:00 AM EST CHIEF COMPLAINT Chief Complaint Patient presents with Right Hip - Pain XOA. 68 yo M c/o R hip pain. Pain since January 2024. End of February went to ED, states iliacus tear and hemorrhage. Also has LBP. DVT in left leg end April. Pain improved when off blood thinners, has returned since he resumed them. Takes gabapentin. HISTORY OF PRESENT ILLNESS History of Present Illness The patient is a 68-year-old male who presents for evaluation of his hips. He began experiencing hip pain in 01/2024, initially attributing it to his arthritis. The pain progressively intensified, culminating in severe discomfort by the end of 02/2024 that prevented him from straightening up. A CT scan performed at the emergency room revealed an iliacus muscle tear and hemorrhage, which were identified as the sources of his pain. He was subsequently taken off blood thinners and prescribed pain medication, leading to a reduction in pain within a few days. His helmet hat sweatband puncher recommended a prolonged cessation of blood thinners due to the risk of hemorrhage. Two MRIs, oneof the pelvis and another of the hip, were conducted during this period. He also consulted with Dr. fall regarding his hip and knee issues, who concurred with the diagnosis of hemorrhage but suggested bursitis as a potential cause based on MRI findings. He has been informed that he requires fusion of the bottom three vertebrae due to stenosis and other issues. He is currently on [id number] mg for back pain management, which he believes may be masking some of his hip pain. 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 He experiences limping on both sides due to his back condition affecting his left side. He was scheduled for a left knee replacement on 05/08/2024, but this was postponed due to his current health issues. He has a history of factor II deficiency, which led to pulmonary embolism twice when he was taken off blood thinners. He has an upcoming appointment with Dr. Fall on 07/08/2024. He underwent a left hip replacement approximately 5 years ago, which has been functioning well. He developed back problems, leading to a decrease in his physical activity. being off blood thinners, he developed clots in five different veins from his knee to his ankle in 04/2024. A screen was placed, and he was put back on blood thinners, which he believes have resolved the clots. He has an appointment with his helmet hat sweatband puncher on Monday for a follow-up blood test. He reports that his leg was previously twice its current size. 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 MEDICATIONS Current: gabapentin ROS: There are no new acute heart or lung ROS. PHYSICAL EXAMINATION: Vitals: 06/21/24 1029 Weight: 83.5 kg (184 lb) Height: 1.778 m (5' 10) Well developed, well nourished patient in no acute distress. Alert and oriented times three, affect appropriate. Gait: Limp yes Hip ROM: Physical Exam Right Hip PAIN: Resisted Straight leg raise yes Log roll no Flexion no Flexion/IR yes Fei yes Psoas yes Dial no Posterior Impingement no Trochanter no Piriformis no Hernia pain no Adductor no CMS Intact yes Left Hip PAIN: Resisted Straight leg raise no Log roll no Flexion no Flexion/IR no Fei no Psoas no Dial no Posterior Impingement no Trochanter no Piriformis no Hernia pain no Adductor no CMS Intact yes Radiographs: Results Imaging CT scan showed a muscle tear in the iliacus muscle and hemorrhage. MRI of the pelvis area and hip showed significant tearing of the labrum, fluid collection, bursitis along the iliopsoas tendon, significant arthritis in the right hip, cartilage damage, labral tearing, subchondral cyst, edema in thefemoral head, effusion in the joint, and synovitis. IMPRESSION: PLAN: Assessment & Plan 1. Right hip pain. The patient's right hip pain is likely due to significant arthritis, as evidenced by imaging showing cartilage damage, labral tearing, subchondral cysts, edema in the femoral head, joint effusion, and synovitis. There is also a fluid collection along the iliopsoas tendon, possibly a resolving hematoma or bursitis. The pain is primarily from the hip joint itself. Treatment options discussed include rest, medications, physical therapy, injections, and surgery. Injections into the iliopsoas tendonbursa may help if the fluid collection is causing discomfort, but they are unlikely to alleviate arthritis pain. Surgical options include anterior approach total hip replacement, which could also addr ess the iliopsoas bursa issue. He is advised to consult with Dr. fall regarding hip replacement surgery. 2. Left leg clots. The patient experienced clots in his left leg from the knee to the ankle in five different veins after being taken off blood thinners due to a hemorrhage. He has since had a screen placed and resumedblood thinners. He reports that the clots have subsided, and he will see his helmet hat sweatband puncher on Mondayfor a blood test to ensure complete resolution. 3. Back pain. The patient has been diagnosed with stenosis and requires fusion of the bottom three vertebrae. He is currently on gabapentin 300 mg to manage the pain. He is advised to seek a second opinion from a neurosurgeon, with recommendations provided for nsx surgeons PROCEDURE The patient underwent a left hip replacement approximately 5 years ago, which has been functioning well. We reviewed with Malvin today, his diagnosis. The diagnosis and treatment options were discussed with him in detail today. The decision was made to go forward with rt keya eval consult. We will see patient back in as needed If there are any questions prior to this, the patient was instructed to contact the office. Irene Escobedo Orthopaedic Surgery Sports Medicine and Hip Preservation [facility] this [facility] [place] Medical Records Department [address] [place] [address] History Physical Exam 05/20/24 1405 MR#: [id number] Acct: [id number] Name: MALVIN ROBLERO BRANDEN Rep #: [id number] : [id number] 68 From: Kevin Mcpherson MD PCP: Dr. Kayla Erwin MD Status:REG ER Location: ED HPI - General HPI Narrative MALVIN ROBLERO, is a 68 M who presents with new onset left lower extremity edema and had an outpatient duplex that revealed popliteal DVT. He has history of prior PE x 2, Factor 2 mutation, and had been on Xarelto 10 mg daily until February. It was stopped due to concern for retroperitoneal/pelvic spontaneous hematoma. This did not require admission or transfusions. Subsequent imaging suggested this appeared more to be bursitis than bleed. After stopping Xarelto in February he has attempted to maintain active lifestyle to avoid contributing to risk for new VTE. For the past 2 weeks his activity has been extremity diminished due to sciatica type symptoms. [facility] Medical History Bilateral swelling of feet and ankles TGA (transient global amnesia) Hypertension Factor II deficiency Home Medications ???Medication ???Instructions ???Recorded ???Last Taken ???Type omeprazole 40 mg capsule,delayed 1 tab PO DAILY gerd 10/04/13 04/18/18 06:00 History release losartan 50 mg tablet 50 mg PO DAILY bp 04/16/15 10/28/15 History metoprolol tartrate 25 mg tablet 25 mg PO DAILY blood pressure 01/24/19 Unknown History acetaminophen 500 mg capsule 1,000 mg PO Q8H PRN Pain 10/27/20 Unknown History rivaroxaban 10 mg tablet 10 mg PO DAILY #90 tabs 04/07/23 Unknown Rx mometasone 50 mcg/actuation nasal 2 spray intranasal DAILY 03/20/24 Unknown History spray (Nasonex 24hr Allergy) baclofen 5 mg tablet 5 mg PO BID 05/13/24 Unknown History naproxen sodium 220 mg capsule 220 mg PO BID PRN 05/13/24 Unknown History (Aleve) Allergy/AdvReac Type Severity Reaction Status Date / Time cyclobenzaprine HCl (From Allergy Severe Swelling Verified 05/20/24 11:30 Flexeril) ketorolac tromethamine (From Allergy Severe Swelling Verified 05/20/24 11:30 Toradol) levofloxacin (From Levaquin) Allergy Severe Anaphylaxis Verified 05/20/24 11:30 meloxicam Allergy Severe Swelling Verified 05/20/24 11:30 orphenadrine citrate (From Allergy Severe Swelling Verified 05/20/24 11:30 Norflex) Penicillins Allergy Severe Rash Verified 05/20/24 11:30 triamcinolone acetonide Allergy Severe Swelling Verified 05/20/24 11:30 (From Kenalog) Family History Father Arthritis Hypertension Mother Hypertension Surgical History History of left hip replacement History of repair of rotator cuff History of shoulder surgery H/O sinus surgery History of repair of anterior cruciate ligament of right knee History of repair of anterior cruciate ligament of left knee Hx of tonsillectomy Social History household members: spouse Smoking Status: Never smoker alcohol intake: never substance use type: does not use ROS Constitutional Constitutional: Denies chills, fever(s), frequent falls, lethargy or weakness Eyes Eyes: Denies blind spots, change in vision or loss of vision ENT HEENT: Denies bleeding gums, hoarseness or sore throat Cardiovascular Cardiovascular: Reports leg edema; Denies abdominal pain, bluish discoloration of hand/feet, chest pain with activity, claudication, cold extremities, cyanosis, dyspnea on exertion, erythema on extremities, irregular heart rhythm, leg ulcers, numbness in extremities or weakness in extremities Respiratory/Chest Respiratory/Chest: Denies cough, excessive phlegm production, shortness of breath at rest, shortness of breath with exertion or wheezing Gastrointestinal Gastrointestinal: Denies anorexia, change in stool character, constipation, diarrhea, melena or rectal bleeding Genitourinary Genitourinary: Denies dysuria or hematuria Musculoskeletal Musculoskeletal: Reports back pain and extremity pain; Denies abnormal gait Integumentary Integumentary: Denies erythema, non-healing lesions or wounds Neurologic Neurologic: Denies abnormal speech, focal weakness, headache(s), loss of vision, numbness, paresthesias or sensory deficit Hematologic/Lymphatic Hematologic/Lymphatic: Denies easy bleeding, easy bruising or lymphadenopathy Vital Signs Vital Signs Vital Signs: 05/20/24 11:27 05/20/24 13:58 Temperature 98 F 97.5 F L Temperature Source Oral Pulse Rate 54 L 55 L Respiratory Rate 16 16 Blood Pressure 154/104 H 125/90 H Blood Pressure Mean 120 101 Pulse Ox 99 99 Oxygen Delivery Method Room Air (more content not included)...[facility]12-03-2024 History and physical note* Radha Blanco, RUG SHAMPOOER-SEVERITY OF ILLNESS COORDINATOR - 04/23/2024 12:45 PM EST PREOPERATIVE ASSESSMENT [facility] Name: Malvin Roblero Date of Surgery: 05/06/24 . Surgeon: Dr Garcia Pre-Op Diagnosis: Primary osteoarthritis of left knee Planned Procedure: ARTHROPLASTY KNEE TOTAL - Left Anesthesia Type: planned for general anesthesia SUMMARY AND RECOMMENDATIONS Pending heme recs Strict NPO Diet recommended. Malvin Roblero is a 68 y.o. year old patient with a history the following diagnoses which increase his risk for perioperative complications. he being referred for pre operative evaluation and optimization. The relative status of the medical conditions are further explained in this note. 1. Pre-operative examination for internal medicine 2. Primary osteoarthritis of left knee 3. Gastroesophageal reflux disease with esophagitis, unspecified whether hemorrhage 4. Primary hypertension ANESTHESIA and AIRWAY Anesthesia alerts: Prolonged postop somnolence (first knee surgery at noon, had to spend night didn't wake up til midnight, no issues w/recent surgery), ERAS Personal history of problems related to anesthesia (ex.Malignant Hyperthermia): no malignant hyperthermia, no issue w/IV and no PONV Family History of problems related to anesthesia (ex.Malignant Hyperthermia: no Pacer/AICD: no Nerve stimulators (DBS, PNS, SCS): no Parenteral Access: no Glaucoma: no JESUS: no STOP-BANG Risk Assessment Do you snore - Yes Are you frequently tired during the day? - No Have you been observed gasping or choking while asleep? - No Do you have high blood pressure? - Yes Age more than 50? - Yes Gender male? - Yes Neck circumference greater than 40 cm? - No Neck Circumference (cm): 30.48 BMI more then 35? - No Body mass index is 26.4 kg/m . Mallampati class - 2 TM Distance - 3 FB Oral Opening - 3 FB Teeth - normal dentition for age Cervical range of motion - within normal limits Neck circumference - Neck Circumference (cm): 30.48 Body mass index is 26.4 kg/m . Allergies and adverse drug reactions Allergies Allergen Reactions Cyclobenzaprine throat swelling Ketorolac Tromethamine Swelling Meloxicam Swelling Orphenadrine Swelling Penicillin G Rash Triamcinolone Swelling ANESTHESIA/AIRWAY ASSESSMENT AND PLAN- # Anesthesia Alerts as above if applicable # Patient is at Intermediate (3-4) risk for JESUS vs Patient has JESUS # Previous Airway Details below (if available) Elías Langford APRN-LUMBER ESTIMATOR 02/24/2020 7:49 AM Intubation Airway not difficult General Information and Staff Patient location during procedure: OR Room: Indications and Patient Condition Indications for airway management: general anesthesia Spontaneous ventilation: present Sedation level: general anesthesia Preoxygenated: yes Patient position: supine Manual Inline Stabilization not maintained throughout Mask difficulty assessment: 1 - vent by mask Final Airway Details Final airway type: supraglottic airway Successful airway: LMA Size 4 Placement verified by: auscultation and CO2 detection Tube Secured with: tape Number of attempts at approach: 1 Additional Comments Atraumatic LMA placement. No complications. CARDIOVASCULAR Do you take Aspirin or other antiplatelet agents? no Do you take anti-coagulations? Yes xarelto Beta Eliot: yes - Patient denies a history of cardiac events or [place]. Denies chest pain, palpitation or worsening SOB over the last few months ASSESSMENT AND PLAN- Essential HTN -managed on metoprolol, losartan -appears controlled BP Readings from Last 3 Encounters: 04/23/24 131/78 02/24/20 112/72 02/12/20 (!) 136/92 # Functional status - METS: Excellent: >7 METS functional status. 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 # Pre-operative Risk Evaluation: Patient Meets the Following RCRI Criteria (RCRI): None: 0 criteria suggesting a 3.9% risk of major cardiac events or within 30 days. Malvin Roblero is at a Low risk based on the RCRI above. Patient can achieve METS > 4. Per ACC/AHA guidelines, the patient requires no further testing at this time. CARDIAC TESTING and REVIEW OF PREVIOUS CARDIAC TESTING/IMAGING EKG (04/23/24): sinus bradycardia with a HR of [address] No [address] changes noted as interpreted byme PULMONARY ASSESSMENT AND PLAN: # None PULMONARY TESTING AND REVIEW OF RECORDS if any HEMATOLOGY History of DVT/PE - yes DVT left leg, 2014, PE bilateral lungs 2014, In case of surgeons plan or unforseen emergency, are you okay with receiving blood products? - yes Have you ever been diagnosed with any bleeding disorders in the past (Hemophilia A or B, Von Willebrand Disease)? - Yes Patient has not received blood transfusions in the last 3 months. ASSESSMENT AND PLAN prothrombin gene mutation, -hx DVT in left leg and PE both sides in 03/2015, non provoked DVT, was off Xarelto for 14 days, then has 2nd PE 10/2015. He tolerated knee surgery before without bleeding. 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 No Does the patient currently smoke? no ASSESSMENT AND PLAN: # No active use MEDICATIONS Current Outpatient Medications Medication Sig Acetaminophen (TYLENOL ARTHRITIS PAIN PO) Take by mouth. 3-4 tabs prn losartan 50 MG PO TABS Take 1 tablet by mouth daily. magnesium oxide 400 MG tablet Take 1 tablet by mouth daily every morning. metoprolol 25 MG tab regular release Take 1 tablet by mouth daily every morning. MOMETASONE FUROATE NA by Nasal route as needed.. omeprazole [address] Take 1 capsule by mouth daily every morning. VITAMIN D PO Take 1 capsule by mouth daily every morning. XARELTO 20 MG Take 1 tablet by mouth daily. Has not taken since 02/2024 acetaminophen 325 MG tablet Take 1 tablet by mouth every 4 hours. (Patient not taking: Reported on 04/23/2024) Mupirocin 2 % ointment Apply a small amount in each nostril twice daily for 5 days prior to surgery. Medication A/P - Instructions for preoperative medications given to the patient in AVS. LABS Orders Placed This Encounter SCREEN: MRSA/MSSA CALCIUM SEDIMENTATION RATE, AUTOMATED C REACTIVE PROTEIN ALBUMIN CBC, EDIF, PLATELET MAGNESIUM PTT WITH MIXING STUDY PROTIME-INR CHEM 6 (LYTES, BUN CREA) NICOTINE SCREEN URINE HEMOGLOBIN A1C Type and Cross -Preadmission Mupirocin 2 % ointment CA ECG, CLINIC PERFORMED Lab A/P - Lab Results Component Value Date SODIUM 141 04/23/2024 POTASSIUM 4.3 04/23/2024 CHLORIDE 104 04/23/2024 CO2 29 04/23/2024 BUN 20 04/23/2024 CREATSERUM 1.01 04/23/2024 GLUCOSE 81 11/29/2016 Lab Results Component Value Date WBC 6.84 04/23/2024 HGB 15.8 04/23/2024 HCT 47.8 04/23/2024 PLATELET 173 04/23/2024 MCV 90.9 04/23/2024 Lab Results Component Value Date INR 1.0 04/23/2024 INR 1.0 12/29/2016 INR 1.7 (H) 11/29/2016 PT 13.4 04/23/2024 PT 13.2 12/29/2016 PT 19.7 (H) 11/29/2016 MSSA/MRSA: neg/neg UA:N/A- Denies any current s/sx UTI or issues with urination Thank you for allowing us to participate in the care of Malvin Roblero. Note to patient: The 21st Century Cures Act makes medical notes like these available to patients inthe interest of transparency. However, be advised this is a medical document. It is intended as [id number] communication. It is written in medical language and may contain abbreviations or verbiagethat are unfamiliar. It may appear blunt or direct. Medical documents are intended to carry relevant information, facts as evident, and the clinical opinion of the practitioner. [employer] dictation software may have been used to write this note. Please excuse any errors that may have occurred as a result of the dictation. Radha Blanco, RUG SHAMPOOER-SEVERITY OF ILLNESS COORDINATOR [facility] [address] [place] Review of Systems (OSUROS) The patient denies any chest pain on exertion, shortness of breath, orthopnea or palpitation ROS also negative for fever, chills, headache, dizziness, cough, sputum, nausea, vomiting, diarrhea, constipation, dysuria, hematuria, rashes or easy bleeding. All other systems were reviewed and were negative Physical Examination (PHYSEXAM) Blood pressure 131/78, pulse 54, temperature 97.3 F (36.3 C), temperature source Temporal, resp. rate 10, height 1.778 m (5' 10), weight 83.5 kg (184 lb), SpO2 98%. General:68 y.o. male in NAD, alert and oriented x 3 HEENT: Normocephalic, pupils equal round and reactive to light, EOMI, moist mucous membranes noted. Neck: Full ROM, supple, no lymphadenopathy Pulmonary: bilateral breath sounds, clear to auscultation, no use of accessory muscles, no wheezes/rhonchi/rales Cardiovascular:Regular rate and rhythm. Normal S1, S2, No murmurs, rubs or gallops Abdomen: soft, nontender, nondistended, normoactive bowel sounds, Extremities: No cyanosis, clubbing or edema. Normal peripheral pulses noted. Neuro: Cranial nerves are grossly intact, No focal deficits noted, moving all 4 extremities. Skin: warm, dry, intact; no erythema or rash Past Medical History: Diagnosis Date Chicken pox Factor II deficiency Gastroesophageal reflux GERD (gastroesophageal reflux disease) [place] measles screening History of seasonal allergies Hypertension Measles Mumps Pulmonary embolism Past Surgical History: Procedure Laterality Date ARTHROSCOPY SHOULDER W/ ROTATOR CUFF REPAIR Left 02/24/2020 Laterality: Left; Surgeon: Seth Olvera MD; Location: [facility] PERIOP ARTHROSCOPY SHOULDER W/ DEBRIDEMENT Left 02/24/2020 Laterality: Left; Surgeon: Seth Olvera MD; Location: [facility] PERIOP ARTHROSCOPY SHOULDER W/ SUBACROMIAL DECOMPRESSION/ACROMIOPLASTY ADD-ON Left 02/24/2020 Laterality: Left; Surgeon: Seth Olvera MD; [email or web address] PERIOP RESECTION/TRANSPLANTATION BICEPS LONG TENDON Left 02/24/2020 Laterality: Left; Surgeon: Seth Olvera MD; Location: [email or web address] PERIOP HIP REPLACEMENT Left 2018 Done in [place] ARTHROSCOPY SHOULDER W/ ROTATOR CUFF REPAIR Right 12/29/2016 Laterality: Right; Surgeon: Seth Olvera MD; Location: [facility] MAIN OR ARTHROSCOPY SHOULDER W/ BICEPS TENODESIS Right 12/29/2016 Laterality: Right; Surgeon: Seth Olvera MD; Location: [facility] MAIN OR ARTHROSCOPY SHOULDER W/ DEBRIDEMENT Right 12/29/2016 Laterality: Right; Surgeon: Seth Olvera MD; Location: [facility] MAIN OR ARTHROSCOPY SHOULDER W/ SUBACROMIAL DECOMPRESSION/ACROMIOPLASTY ADD-ON Right 12/29/2016 Laterality: Right; Surgeon: Seth Olvera MD; [facility] OR ACL RECONSTRUCTION 2005 Left Knee ACL, MCL recon ACL RECONSTRUCTION 1997 Right knee Patient Care Team: Kayla Erwin MD as PCP - General (Family Medicine) Family History Problem Relation Age of Onset Hypertension Father Cancer- Other Father brain Hypertension Mother Neurologic Disease Mother cognitive problems, hydrocephalus Aneurysm Neg Hx Bleeding or Clotting Problems Neg Hx Myocardial Infarction Neg Hx Stroke Neg Hx Diabetes Neg Hx Heart Failure Neg Hx Dysrhythmia Neg Hx Social History Socioeconomic History Marital status: Tobacco Use Smoking status: Never Smokeless tobacco: Never Vaping Use Vaping status: Never Used Substance and Sexual Activity Alcohol use: No Drug use: Never [facility]12-03-2024 History and physical note* MAR Clifton - 04/23/2024 12:45 PM EST PREOPERATIVE ASSESSMENT [facility] Name: Malvin Roblero Date of Surgery: 05/06/24 . Surgeon: Dr Garcia Pre-Op Diagnosis: Primary osteoarthritis of left knee Planned Procedure: ARTHROPLASTY KNEE TOTAL - Left Anesthesia Type: planned for general anesthesia SUMMARY AND RECOMMENDATIONS Pending heme recs Strict NPO Diet recommended. Malvin Roblero is a 68 y.o. year old patient with a history the following diagnoses which increase his risk for perioperative complications. he being referred for pre operative evaluation and optimization. The relative status of the medical conditions are further explained in this note. 1. Pre-operative examination for internal medicine 2. Primary osteoarthritis of left knee 3. Gastroesophageal reflux disease with esophagitis, unspecified whether hemorrhage 4. Primary hypertension ANESTHESIA and AIRWAY Anesthesia alerts: Prolonged postop somnolence (first knee surgery at noon, had to spend night didn't wake up til midnight, no issues w/recent surgery), ERAS Personal history of problems related to anesthesia (ex.Malignant Hyperthermia): no malignant hyperthermia, no issue w/IV and no PONV Family History of problems related to anesthesia (ex.Malignant Hyperthermia: no Pacer/AICD: no Nerve stimulators (DBS, PNS, SCS): no Parenteral Access: no Glaucoma: no JESUS: no STOP-BANG Risk Assessment Do you snore - Yes Are you frequently tired during the day? - No Have you been observed gasping or choking while asleep? - No Do you have high blood pressure? - Yes Age more than 50? - Yes Gender male? - Yes Neck circumference greater than 40 cm? - No Neck Circumference (cm): 30.48 BMI more then 35? - No Body mass index is 26.4 kg/m . Mallampati class - 2 TM Distance - 3 FB Oral Opening - 3 FB Teeth - normal dentition for age Cervical range of motion - within normal limits Neck circumference - Neck Circumference (cm): 30.48 Body mass index is 26.4 kg/m . Allergies and adverse drug reactions Allergies Allergen Reactions Cyclobenzaprine throat swelling Ketorolac Tromethamine Swelling Meloxicam Swelling Orphenadrine Swelling Penicillin G Rash Triamcinolone Swelling ANESTHESIA/AIRWAY ASSESSMENT AND PLAN- # Anesthesia Alerts as above if applicable # Patient is at Intermediate (3-4) risk for JESUS vs Patient has JESUS # Previous Airway Details below (if available) Elías Langford, RUG SHAMPOOER-LUMBER ESTIMATOR 02/24/2020 7:49 AM Intubation Airway not difficult General Information and Staff Patient location during procedure: OR Room: Indications and Patient Condition Indications for airway management: general anesthesia Spontaneous ventilation: present Sedation level: general anesthesia Preoxygenated: yes Patient position: supine Manual Inline Stabilization not maintained throughout Mask difficulty assessment: 1 - vent by mask Final Airway Details Final airway type: supraglottic airway Successful airway: LMA Size 4 Placement verified by: auscultation and CO2 detection Tube Secured with: tape Number of attempts at approach: 1 Additional Comments Atraumatic LMA placement. No complications. CARDIOVASCULAR Do you take Aspirin or other antiplatelet agents? no Do you take anti-coagulations? Yes xarelto Beta Eliot: yes - Patient denies a history of cardiac events or [place]. Denies chest pain, palpitation or worsening SOB over the last few months ASSESSMENT AND PLAN- Essential HTN -managed on metoprolol, losartan -appears controlled BP Readings from Last 3 Encounters: 04/23/24 131/78 02/24/20 112/72 09/23/20 (!) 136/92 # Functional status - METS: Excellent: >7 METS functional status. 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 # Pre-operative Risk Evaluation: Patient Meets the Following RCRI Criteria (RCRI): None: 0 criteria suggesting a 3.9% risk of major cardiac events or within 30 days. Malvin Roblero is at a Low risk based on the RCRI above. Patient can achieve METS > 4. Per ACC/AHA guidelines, the patient requires no further testing at this time. CARDIAC TESTING and REVIEW OF PREVIOUS CARDIAC TESTING/IMAGING EKG (04/23/24): sinus bradycardia with a HR of [address] No [address] changes noted as interpreted byme PULMONARY ASSESSMENT AND PLAN: # None PULMONARY TESTING AND REVIEW OF RECORDS if any HEMATOLOGY History of DVT/PE - yes DVT left leg, 2014, PE bilateral lungs 2014, In case of surgeons plan or unforseen emergency, are you okay with receiving blood products? - yes Have you ever been diagnosed with any bleeding disorders in the past (Hemophilia A or B, Von Willebrand Disease)? - Yes Patient has not received blood transfusions in the last 3 months. ASSESSMENT AND PLAN prothrombin gene mutation, -hx DVT in left leg and PE both sides in 03/2015, non provoked DVT, was off Xarelto for 14 days, then has 2nd PE 10/2015. He tolerated knee surgery before without bleeding. 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 No Does the patient currently smoke? no ASSESSMENT AND PLAN: # No active use MEDICATIONS Current Outpatient Medications Medication Sig Acetaminophen (TYLENOL ARTHRITIS PAIN PO) Take by mouth. 3-4 tabs prn losartan 50 MG PO TABS Take 1 tablet by mouth daily. magnesium oxide 400 MG tablet Take 1 tablet by mouth daily every morning. metoprolol 25 MG tab regular release Take 1 tablet by mouth daily every morning. MOMETASONE FUROATE NA by Nasal route as needed.. omeprazole [address] Take 1 capsule by mouth daily every morning. VITAMIN D PO Take 1 capsule by mouth daily every morning. XARELTO 20 MG Take 1 tablet by mouth daily. Has not taken since 02/2024 acetaminophen 325 MG tablet Take 1 tablet by mouth every 4 hours. (Patient not taking: Reported on 04/23/2024) Mupirocin 2 % ointment Apply a small amount in each nostril twice daily for 5 days prior to surgery. Medication A/P - Instructions for preoperative medications given to the patient in AVS. LABS Orders Placed This Encounter SCREEN: MRSA/MSSA CALCIUM SEDIMENTATION RATE, AUTOMATED C REACTIVE PROTEIN ALBUMIN CBC, EDIF, PLATELET MAGNESIUM PTT WITH MIXING STUDY PROTIME-INR CHEM 6 (LYTES, BUN CREA) NICOTINE SCREEN URINE HEMOGLOBIN A1C Type and Cross -Preadmission Mupirocin 2 % ointment CA ECG, CLINIC PERFORMED Lab A/P - Lab Results Component Value Date SODIUM 141 04/23/2024 POTASSIUM 4.3 04/23/2024 CHLORIDE 104 04/23/2024 CO2 29 04/23/2024 BUN 20 04/23/2024 CREATSERUM 1.01 04/23/2024 GLUCOSE 81 11/29/2016 Lab Results Component Value Date WBC 6.84 04/23/2024 HGB 15.8 04/23/2024 HCT 47.8 04/23/2024 PLATELET 173 04/23/2024 MCV 90.9 04/23/2024 Lab Results Component Value Date INR 1.0 04/23/2024 INR 1.0 12/29/2016 INR 1.7 (H) 11/29/2016 PT 13.4 04/23/2024 PT 13.2 12/29/2016 PT 19.7 (H) 11/29/2016 MSSA/MRSA: neg/neg UA:N/A- Denies any current s/sx UTI or issues with urination Thank you for allowing us to participate in the care of Malvin Roblero. Note to patient: The Century Cures Act makes medical notes like these available to patients inthe interest of transparency. However, be advised this is a medical document. It is intended as [id number] communication. It is written in medical language and may contain abbreviations or verbiagethat are unfamiliar. It may appear blunt or direct. Medical documents are intended to carry relevant information, facts as evident, and the clinical opinion of the practitioner. [employer] dictation software may have been used to write this note. Please excuse any errors that may have occurred as a result of the dictation. Radha Blanco, RUG SHAMPOOER-SEVERITY OF ILLNESS COORDINATOR [facility] Perioperative Clinic [facility] Moo [place]rit[place] Review of Systems (OSUROS) The patient denies any chest pain on exertion, shortness of breath, orthopnea or palpitation ROS also negative for fever, chills, headache, dizziness, cough, sputum, nausea, vomiting, diarrhea, constipation, dysuria, hematuria, rashes or easy bleeding. All other systems were reviewed and were negative Physical Examination (PHYSEXAM) Blood pressure 131/78, pulse 54, temperature 97.3 F (36.3 C), temperature source Temporal, resp. rate 10, height 1.778 m (5' 10), weight 83.5 kg (184 lb), SpO2 98%. General:68 y.o. male in NAD, alert and oriented x 3 HEENT: Normocephalic, pupils equal round and reactive to light, EOMI, moist mucous membranes noted. Neck: Full ROM, supple, no lymphadenopathy Pulmonary: bilateral breath sounds, clear to auscultation, no use of accessory muscles, no wheezes/rhonchi/rales Cardiovascular:Regular rate and rhythm. Normal S1, S2, No murmurs, rubs or gallops Abdomen: soft, nontender, nondistended, normoactive bowel sounds, Extremities: No cyanosis, clubbing or edema. Normal peripheral pulses noted. Neuro: Cranial nerves are grossly intact, No focal deficits noted, moving all 4 extremities. Skin: warm, dry, intact; no erythema or rash Past Medical History: Diagnosis Date Chicken pox Factor II deficiency Gastroesophageal reflux GERD (gastroesophageal reflux disease) [place] measles screening History of seasonal allergies Hypertension Measles Mumps Pulmonary embolism Past Surgical History: Procedure Laterality Date ARTHROSCOPY SHOULDER W/ ROTATOR CUFF REPAIR Left 02/24/2020 Laterality: Left; Surgeon: Seth Olvera MD; Location: [facility] PERIOP ARTHROSCOPY SHOULDER W/ DEBRIDEMENT Left 02/24/2020 Laterality: Left; Surgeon: Seth Olvera MD; Location: [facility] PERIOP ARTHROSCOPY SHOULDER W/ SUBACROMIAL DECOMPRESSION/ACROMIOPLASTY ADD-ON Left 02/24/2020 Laterality: Left; Surgeon: Seth Olvera MD; Location: [facility] PERIOP RESECTION/TRANSPLANTATION BICEPS LONG TENDON Left 02/24/2020 Laterality: Left; Surgeon: Seth Olvera MD; Location: [facility] PERIOP HIP REPLACEMENT Left 2018 Done in [place] ARTHROSCOPY SHOULDER W/ ROTATOR CUFF REPAIR Right [...] MCL recon ACL RECONSTRUCTION 1997 Right knee Patient Care Team: Kayla Erwin MD as PCP - General (Family Medicine) Family History Problem Relation Age of Onset Hypertension Father Cancer- Other Father brain Hypertension Mother Neurologic Disease Mother cognitive problems, hydrocephalus Aneurysm Neg Hx Bleeding or Clotting Problems Neg Hx Myocardial Infarction Neg Hx Stroke Neg Hx Diabetes Neg Hx Heart Failure Neg Hx Dysrhythmia Neg Hx Social History Socioeconomic History Marital status: Tobacco Use Smoking status: Never Smokeless tobacco: Never Vaping Use Vaping status: Never Used Substance and Sexual Activity Alcohol use: No Drug use: Never [facility] [place] Instructions* Patient Instructions* MAR Clifton - 04/23/2024 12:45 PM EST PRIOR TO SURGERY INSTRUCTIONS Please follow these instructions prior to surgery to help us minimize delays and complications to your surgery THE FOLLOWING MEDICATIONS LABS, STUDIES, AND CONSULTATIONS WERE ORDERED TODAY: Orders Placed This Encounter SCREEN: MRSA/MSSA CALCIUM SEDIMENTATION RATE, AUTOMATED C REACTIVE PROTEIN ALBUMIN CBC, EDIF, PLATELET MAGNESIUM PTT WITH MIXING STUDY PROTIME-INR CHEM 6 (LYTES, BUN CREA) NICOTINE SCREEN URINE HEMOGLOBIN A1C Type and Cross -Preadmission Mupirocin 2 % ointment CA ECG, CLINIC PERFORMED PREOPERATIVE MEDICATION INSTRUCTIONS Below are instructions for what to do with your medicines before your surgery/procedure. Take the medications marked take the morning of surgery/procedure with a sip of water. Please follow this table below for instructions on which medications to hold prior to surgery If you have a change in daily medications prior to surgery/procedure, call the [facility] Clinic at [phone]. Current Outpatient Medications Medication Sig Acetaminophen (TYLENOL ARTHRITIS PAIN PO) Take by mouth. 3-4 tabs prn Ok to take morning of surgery losartan 50 MG PO TABS Take 1 tablet by mouth daily. Do not take 24 hours prior to surgery magnesium oxide 400 MG tablet Take 1 tablet by mouth daily every morning. Do Not take the morning of surgery metoprolol 25 MG tab regular release Take 1 tablet by mouth daily every morning. Ok to take morningof surgery MOMETASONE FUROATE NA by Nasal route as needed.. Ok to take morning of surgery omeprazole [address] Take 1 capsule by mouth daily every morning. Ok to take morning of surgery VITAMIN D PO Take 1 capsule by mouth daily every morning. Do Not take the morning of surgery XARELTO 20 MG Take 1 tablet by mouth daily. Has not taken since 02/2024 Do not take 48 hours prior to surgery DO NOT take Excedrin, ibuprofen, Advil, Voltaren (Diclofenac), Motrin, naproxen, or Aleve, Mobic (Meloxicam) for the 5 days before surgery. Acetaminophen (Tylenol) is ok to take up until the day of surgery for pain control. Unless otherwise directed by your healthcare provider- It is okay to take Tylenol 1000 mg every 8 hours. OTHER MEDICATIONS: If you are on or have recently been started on any injectable medications for diabetes or weight loss (see list below), please call our office at [phone] for instructions on what to do with those medications. Your surgery is likely to get rescheduled or delayed if this medication is taken within a week of your surgery. exenatide (brand names Byetta and Bydureon) liraglutide (Victoza for diabetes, Saxenda for obesity) albiglutide (Tanzeum) dulaglutide (Trulicity) lixisenatide (Adlyxin) semaglutide (Ozempic and Rybelsus for diabetes, Wegovy for obesity) tirzepatide (dual GLP-1 and GIP agonist; Mounjaro for diabetes, Zepbound for obesity) VITAMINS & HERBALS Do NOT take herbal medications or vitamins such as, but not limited to, fish oil ([place]-3), garlic,glucosamine -chondroitin, gingko, ginseng, probiotics, or multivitamins) 2 weeks before surgery unless your surgeon instructed differently. If your Medical Doctor has prescribed vitamins or herbal supplements due to a medical condition such as malabsorption issues, only hold the day of surgery. DIET INSTRUCTIONS: NO food or drink after 11 pm the night before surgery except for enough water to take your medications. (No Candy, Mints and/or Gum). If your surgeon has given you special shakes to take prior to surgery, it is okay to take them and follow those instructions OTHER PREOPERATIVE INSTRUCTIONS: PREOPERATIVE INSTRUCTIONS: If additional testing has been ordered by [facility] outside of what can be done today after your visit, we will contact you with an appointment date, location and time for this testing. Please complete this testing as it would be vital to proceeding with your surgery. Any delays in testing could result in delays in your surgery. Please bring remote/s for any devices that you may have implanted like ICDs, pacemakers, nerve stimulators (deep brain, vagus, pudendal, hypoglossal, sacral or spinal) Do not wear any jewelry, watches, rings, hairpieces, makeup, dentures, glasses or contact lenses onday of surgery. Do not wear artificial nails or nail sammarinese the day of surgery. Do NOT bring your hearing aids or dentures or partials with you into surgery. They may get lost. Give them to someone to bring to you after surgery Shower the night before and the morning of surgery. If we have provided you with a special soap, follow those directions. AVOID using surgical soap around eyes, ears, nose, mouth, and genital areas Avoid any creams, ointments or deodorant on the morning of surgery Do not shave, or pluck hair from anywhere near the surgical site for 1 week prior to surgery. [place] your teeth and rinse your mouth the morning of surgery. Avoid Swallowing toothpaste. If you are a female, under the age of 60, you may be required to provide a urine specimen the morning of surgery. DO NOT DRINK ALCOHOL for at least 24 hours prior to surgery. AVOID USING NICOTINE or TOBACCO of any form around the time of surgery. This includes but not limited to: Smoking, Cigarettes, Vaping, Chewing/Rubbing Tobacco and Nicorette Gum. If you smoke, we recommend that you quit smoking at least 2 weeks prior to surgery as nicotine products can impair wound healing. Your anesthesia team recommends that you have no nicotine in your system for at least 24 hours (at a minimum) prior to anesthesia. Your surgery could get cancelled at your surgeon's discretion if you do not follow these instructions AVOID MARIJUANA USE for at least 72 hours prior to surgery. Arriving to surgery intoxicated or under the influence of recreational drugs may result in cancellation of procedure. If you have a cold or flu symptoms, recently hospitalized or new diagnosis, please contact your surgeon s office before your procedure. If you become ill, develop a fever, cough, develop any type of infection, or are admitted to the hospital for any reason within 14 days of your scheduled surgery, please notify our team ([facility]) and your surgeon's office. You may need to have your surgery moved, as we would not want to put you at risk for complications, You MUST arrange for a responsible adult to drive you to your procedure, stay for the surgery, listen to discharge instructions, and drive you home after surgery, otherwise your surgery may be cancelled. SURGERY LOCATIONS [facility] [address] [place] [id number] Parking: Lead Installer or Safe Auto Garage Phone-Main [place] [phone]-Ask for the Surgery Department Please call for any questions, delay of arrival, cancellation, or illness on the day of surgery. [facility] [address] [place] [address] 1st Floor Surgery Center [place], [place] [address] Please call for any questions, delay of arrival, cancellation, or illness on the day of surgery. [facility] and [address] [place], [place] [address] Please call for any questions, delay of arrival, cancellation, or illness on the day of surgery. [facility] [address] [place], [place] [address] Please call for any questions, delay of arrival, cancellation, or illness on the day of surgery. PLEASE BRING YOUR MEDICATIONS WITH YOU IN THE ORIGINAL BOTTLES, ON THE DAY OF SURGERY. [facility] [address] [place] [address] Please call for any questions, delay of arrival, cancellation, or illness on the day of surgery. PLEASE BRING YOUR MEDICATIONS WITH YOU IN THE ORIGINAL BOTTLES, ON THE DAY OF SURGERY. [facility] [address] [place], [place] [address] Please call for any questions, delay of arrival, cancellation, or illness on the day of surgery. [facility] [address] [place] [address] Please call for any questions, delay of arrival, cancellation, or illness on the day of surgery. [facility] Preoperative Testing [facility] [phone] documented in this encounter[facility] [place] NoteHNO ID: [id number] Author: GARY RODRIGUEZ MD Service: ? Author Type: Physician Type: Progress Notes Filed: 04/03/2024 15:07 Note Text: HISTORY OF PRESENT ILLNESS: Malvin Roblero is a 68 year old male h/o PE did ac for 6 months, 2015 2 weeks after stopping ac 2016 new SOB and pleuritic chest pain new PE Prothrombin mutation noted heterozygous. Did well until started with right hip pain, progressive, possibly [place] 03-21-24 showed possible bleed in iliacus muscle. D dimer normal. Has been on Xarelto 10 mg daily for 2 years now Xarelto stopped, pain has improved, but not completely resolved. CT on Mar 28 2024 shows improvement in iliac muscle. CLINICAL IMPRESSION: History recurrent unprovoked PE Iliac muscle bleed likely stems from overwork of muscle RECOMMENDATION/PLAN: 1. Favor resuming ac at same dose given lack of thrombotic issues, and severity of clt issues while off of ac. Agree with prophylactic dosing at this time. Written and verbal health teaching given to patient, patient verbalizes understanding and agrees with treatment plan. PAST MEDICAL HISTORY Diagnosis Date Essential hypertension Factor II deficiency (HCC) TGA (transient global amnesia) PAST SURGICAL HISTORY Procedure Laterality Date OPEN REPAIR OF ROTATOR CUFF ACUTE Left 2020 PAST SURGICAL HISTORY OF 1959 Tonsillectomy PAST SURGICAL HISTORY OF 1975 sinus surgery PAST SURGICAL HISTORY OF Right 1995 ACLreplacement PAST SURGICAL HISTORY OF Left 1994 ACL AND MCL replacement REPAIR ROTATOR CUFF,ACUTE Right 2018 TOTAL HIP REPLACEMENT Left 2018 FAMILY HISTORY Problem Relation Age of Onset Hypertension Mother Dementia Mother Neuropathy Mother Hypertension Father Blood Clots Father other (brain tumor) Father Arthritis Father No Known Problems Sister No Known Problems Sister No Known Problems Brother Breast Cancer Maternal Grandmother No Known Problems Maternal Grandfather No Known Problems Paternal Grandmother Leukemia Paternal Grandfather Social History Tobacco Use Smoking status: Never Smokeless tobacco: Never Vaping Use Vaping status: Never Used Substance Use Topics Alcohol use: Never Drug use: Never ALLERGIES: ALLERGIES Allergen Reactions Cyclobenzaprine Swelling throat swelling Ketorolac Swelling Meloxicam Swelling Orphenadrine Swelling Penicillins Rash Triamcinolone Swelling Levaquin [Levofloxa* Anaphylaxis CURRENT OUTPATIENT MEDICATIONS: losartan (COZAAR) 50 mg tablet Take 50 mg by mouth once daily. omeprazole (PRILOSEC) 40 mg capsule Take 40 mg by mouth once daily. rivaroxaban (XARELTO) 20 mg tablet Take 20 mg by mouth once daily. metoprolol tartrate, short acting, (LOPRESSOR) 25 mg tablet Take 25 mg by mouth twice daily. mometasone (NASONEX) 50 mcg/actuation nasal spray Use 2 Sprays in the nose once daily. levoFLOXacin (LEVAQUIN) 500 mg tablet Take 500 mg by mouth once daily. REVIEW OF SYSTEMS: GENERAL: No fever, night sweats, weight loss or malaise. All other reviewed and negative other than HPI. PHYSICAL EXAMINATION: VITAL SIGNS: BP 133/83 Pulse 51 Temp (Src) 97.8 (Temporal) Ht 5' 10.866 (1.80m) Wt 183 lb 8 oz (83.2kg) SpO2 100% BMI 25.69 kg/(m2). GENERAL APPEARANCE: Well appearing, in no acute distress, alert and oriented x3, well-hydrated, well nourished. I spent a total of 45 minutes on the date of the service which included preparing to see the patient, [id number] patient care, completing clinical documentation, obtaining and/or reviewing separately obtained history, counseling and educating the patient/family/caregiver, independently interpreting results (not separately reported), and communicating results to the patient/family/caregiver. Electronically Signed: Gary Rodriguez MD April 03, 2024 11:23 [facility] [place]11-13-2024 History of Present illness Narrative* Gary Rodriguez MD - 04/03/2024 11:23 AM EST HISTORY OF PRESENT ILLNESS: Malvin Roblero is a 68 year old male h/o PE did ac for 6 months, 2014 2 weeks after stopping ac 2015 new SOB and pleuritic chest pain new PE Prothrombin 10954 mutation noted heterozygous. Did well until started with right hip pain, progressive, possibly after [place] 50 [place].CT 03-21-24 showed possible bleed in iliacus muscle. D dimer normal. Has been on Xarelto 10 mg daily for 2 years now Xarelto stopped, pain has improved, but not completely resolved. CT on Mar 28 2024 shows improvementin iliac muscle. CLINICAL IMPRESSION: History recurrent unprovoked PE Iliac muscle bleed likely stems from overwork of muscle RECOMMENDATION/PLAN: 1. Favor resuming ac at same dose given lack of thrombotic issues, and severity of clt issues whileoff of ac. Agree with prophylactic dosing at this time. Written and verbal health teaching given to patient, patient verbalizes understanding and agrees with treatment plan. PAST MEDICAL HISTORY Diagnosis Date Essential hypertension Factor II deficiency (HCC) TGA (transient global amnesia) PAST SURGICAL HISTORY Procedure Laterality Date OPEN REPAIR OF ROTATOR CUFF ACUTE Left 2020 PAST SURGICAL HISTORY OF 1959 Tonsillectomy PAST SURGICAL HISTORY OF 1975 sinus surgery PAST SURGICAL HISTORY OF Right 1995 ACLreplacement PAST SURGICAL HISTORY OF Left 1994 ACL & MCL replacement REPAIR ROTATOR CUFF,ACUTE Right 2018 TOTAL HIP REPLACEMENT Left 2018 FAMILY HISTORY Problem Relation Age of Onset Hypertension Mother Dementia Mother Neuropathy Mother Hypertension Father Blood Clots Father other (brain tumor) Father Arthritis Father No Known Problems Sister No Known Problems Sister No Known Problems Brother Breast Cancer Maternal Grandmother No Known Problems Maternal Grandfather No Known Problems Paternal Grandmother Leukemia Paternal Grandfather Social History Tobacco Use Smoking status: Never Smokeless tobacco: Never Vaping Use Vaping status: Never Used Substance Use Topics Alcohol use: Never Drug use: Never ALLERGIES: ALLERGIES Allergen Reactions Cyclobenzaprine Swelling throat swelling Ketorolac Swelling Meloxicam Swelling Orphenadrine Swelling Penicillins Rash Triamcinolone Swelling Levaquin [Levofloxa* Anaphylaxis CURRENT OUTPATIENT MEDICATIONS: losartan (COZAAR) 50 mg tablet Take 50 mg by mouth once daily. omeprazole (PRILOSEC) 40 mg capsule Take 40 mg by mouth once daily. rivaroxaban (XARELTO) 20 mg tablet Take 20 mg by mouth once daily. metoprolol tartrate, short acting, (LOPRESSOR) 25 mg tablet Take 25 mg by mouth twice daily. mometasone (NASONEX) 50 mcg/actuation nasal spray Use 2 Sprays in the nose once daily. levoFLOXacin (LEVAQUIN) 500 mg tablet Take 500 mg by mouth once daily. REVIEW OF SYSTEMS: GENERAL: No fever, night sweats, weight loss or malaise. All other reviewed and negative other than HPI. PHYSICAL EXAMINATION: VITAL SIGNS: BP 133/83 Pulse 51 Temp (Src) 97.8 (Temporal) Ht 5' 10.866 (1.80m) Wt 183 lb 8 oz (83.2kg) SpO2 100% BMI 25.69 kg/(m^2). GENERAL APPEARANCE: Well appearing, in no acute distress, alert and oriented x3, well-hydrated, well nourished. I spent a total of 45 minutes on the date of the service which included preparing to see the patient, [id number] patient care, completing clinical documentation, obtaining and/or reviewing separately obtained history, counseling and educating the patient/family/caregiver, independently interpretin g results (not separately reported), and communicating results to the patient/family/caregiver. Electronically Signed: Gary Rodriguez MD April 03, 2024 11:23 AM [facility] Telephone encounter Note * Telephone Encounter - Michela Dunlap LPN - 04/01/2024 2:14 PM EST records received from [facility]. Thrombophillia. new pt chart given to chemical radiation technician. Michela Dunlap LPN [facility]11-11-2024 Miscellaneous Notes* Telephone Encounter - Michela Dunlap LPN - 04/01/2024 2:14 PM EST records received from [facility]. Thrombophillia. new pt chart given to chemical radiation technician. 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 Apurva Tim LPN * Telephone Encounter - Clair Ayala - 04/01/2024 8:39 AM EST Patient calling in wanting to transfer his hematology care to Dr. Bower. Please review and advise. Clair Ayala April 01, 2024 8:39 AM documented in [facility] encounterSt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 Apurva Tim LPN [facility]11-11-2024 Telephone encounter Note* Telephone Encounter - Clair Ayala - 04/01/2024 8:39 AM EST Patient calling in wanting to transfer his hematology care to Dr. Bower. Please review and advise. Clair Ayala April 01, 2024 8:[address] [facility]10-02-2024 History of Present illness Narrative* Luiz Ramirez ATC - 02/21/2024 8:40 AM EDT OFFICE NOTE NEW KNEE Referring Source: Dr. Glynn - Sports Med Chief Complaint: left intractable knee pain, consultation for possible TKA History: Malvin Roblero is a 68 y.o. male with 3 year duration of symptoms in the left knee. Patient wasconsidering TKA last year but tried gel injections first with some light relief. Patient is an active walker on uneven ground and has difficulty and pain doing that for work. Patient had B ACL repairand meniscectomy. L knee had traumatic injury that [...] following with limited effect: home exercise, activity modification,weight management, and tylenol and gel injections. Last injection: TRINIDAD 03/09/23 with Lori Nguyễn PA-C with 1.5 [...] prostate or bladder procedures or problems: No * Josue Garcia MD - 02/21/2024 8:40 AM EDT OFFICE NOTE NEW KNEE Referring Source: Dr. Glynn - Sports Med Chief Complaint: left intractable knee pain, consultation for possible TKA History: Malvin Roblero is a 68 y.o. male with 3 year duration of symptoms in the left knee. Patient wasconsidering TKA last year but tried gel injections first with some light relief. Patient is an active walker on uneven ground and has difficulty and pain doing that for work. Patient had B ACL repairand meniscectomy. L knee had traumatic injury that [...] following with limited effect: home exercise, activity modification,weight management, and tylenol and gel injections. Last injection: TRINIDAD 03/09/23 with Lori BacksELMO with 1.5 month relief. Prior relevant surgeries [...] deficiency Gastroesophageal reflux GERD (gastroesophageal reflux disease) [place] measles screening History of seasonal allergies Hypertension Measles Mumps Past Surgical History: Past Surgical History: Procedure Laterality Date ARTHROSCOPY SHOULDER W/ ROTATOR CUFF REPAIR Left 02/24/2020 Laterality: Left; Surgeon: Seth Olvera MD; Location: [facility] PERIOP ARTHROSCOPY SHOULDER W/ DEBRIDEMENT Left 02/24/2020 Laterality: Left; Surgeon: Seth Olvera MD; Location: [facility] PERIOP ARTHROSCOPY SHOULDER W/ SUBACROMIAL DECOMPRESSION/ACROMIOPLASTY ADD-ON Left 02/24/2020 Laterality: Left; Surgeon: Seth Olvera MD; Location: [facility] PERIOP RESECTION/TRANSPLANTATION BICEPS LONG TENDON Left 02/24/2020 Laterality: Left; Surgeon: Seth Olvera MD; Location: [facility] PER[facility] HIP REPLACEMENT Left 2018 Done in [place] ARTHROSCOPY SHOULDER W/ ROTATOR CUFF REPAIR Right 12/29/2016 Laterality: Right; Surgeon: Seth Olvera MD; Location: [facility] ARTHROSCOPY SHOULDER W/ BICEPS TENODESIS [...] end stage arthritis of the left knee. Hehas had symptoms that have persisted for at [...] osteophytes, and joint space narrowing. Based on thesefactors, I have recommended surgical treatment with total [...] injury, may need CPS poly [facility] [employer] [place] documented in this [facility]OS[facility] History of Present illness Narrative* Nora Glynn MD - 01/25/2024 2:45 PM EDT This note was scribed on behalf of Dr. Nora Glynn by Darrell Farley, AT Chief Complaint Patient presents with Left Knee - Follow-up F/up left knee OA. XOA. Completed left knee TRINIDAD injections w/ Lori 03/09/23. Prior left knee ACL reconstruction w/ TA allograft and MCL repair, PLM w/ Dr. Glynn - January 2005. States that he got about 1.5mo of relief from his last TRINIDAD injections. Reports has been dealing with increasing global pains that are present during his daily activities. Not taking anything for pain. SUBJECTIVE: Malvin returns for follow up. Overall, the pain is severe and worsening. Reports Poor pain controlwithout the need for medication. Patient has not responded to ice, rest, OTC pain medication, and TRINIDAD injections several months ago, temporarily effective. Review [...] 2+ distal pulses and sensation intact without evidenceof DVT. Patient denies fever, chills or shortness [...] treatment were discussed with him in detail today.The plan is to move forward with a [...] upon arrival of his next appointment. Darrell Farley AT was acting as a scribe today for this note. I have performed all essential components of the history, and physical exam. I have confirmed the diagnosis and developed a plan of care atthis visit. I have reviewed the note following the visit and have add edits as appropriate to my evaluation and plan of care. [facility] Discharge summary Author Harshad Gaines [facility] March 24, 2023 10:41pm Note Date/Time March 24, 2023 7 :51pm [facility] Medical Records Department [address] [place] [address] Emergency Department Summary 03/24/23 MR#: [id number] Acct: [id number] Name: MALVIN ROBLERO BRANDEN Rep #:[id number] : [id number] 67 From: Harshad Mojica PCP: Dr. Salinas Ford MD Status:REG E R Location: ED HPI History of Present Illness Chief Complaint: Back Informant: patient and spouse/S.O. Narrative Narrative: Presents the ED for evaluation of persistent right-sided neck pain worse with turning to the right. Denies any trauma. Symptom started a week ago. Saw his PCP 2 days ago had some rhinorrhea. He was placed on Levaquin antibiotic and Flexeril 5 mg. He took 1 tab Monday he noted swelling around his neck slowlyprogressed since then. He finally has an allergy to this Flexeril years ago. Reports pain with swallowing. He is on Xarelto for history of factor II with multiple blood clots. He is not a diabetic. [facility] Medical History Factor II deficiency Hypertension TGA (transient global amnesia) Home Medications mometasone 50 mcg/actuation nasal spray (Nasonex) 1 spray DAILY PRN ALLERGY 10/04/13 [History Last Taken 04/15/15] omeprazole 40 mg capsule,delayed release 1 tab PO DAILY gerd 10/04/13 [History Last Taken 04/18/18 06:00] losartan 50 mg tablet 50 mg PO DAILY bp 04/16/15 [History Last Taken 10/28/15] metoprolol tartrate 25 mg tablet 25 mg PO DAILY blood pressure 01/24/19 [History Last Taken Unknown] acetaminophen 500 mg capsule 1,000 mg PO Q8H PRN Pain 10/27/20 [History Last Taken Unknown] rivaroxaban 10 mg tablet 10 mg PO DAILY #90 tabs 04/07/22 [Rx Last Taken Unknown] diazepam 5 mg tablet 5 mg PO Q8 PRN Muscle Spasm #12 tabs 03/24/23 [Rx Last Taken Unknown] famotidine 20 mg tablet (Pepcid) 20 mg PO BID #10 tabs 03/24/23 [Rx Last Taken Unknown] prednisone 20 mg tablet 60 mg (3 x 20 mg) PO DAILY #12 TABLETS 03/24/23 [Rx Last Taken Unknown] Allergy/AdvReac Type Severity Reaction Status Date / Time cyclobenzaprine HCl Allergy Severe Swelling Verified 01/20/21 14:33 [From Flexeril] ketorolac tromethamine Allergy Severe Swelling Verified 01/20/21 14:33 [From Toradol] meloxicam Allergy Severe Swelling Verified 01/20/21 14:33 orphenadrine citrate Allergy Severe Swelling Verified 01/20/21 14:33 [From Norflex] Penicillins Allergy Severe Rash Verified 01/20/21 14:33 triamcinolone acetonide Allergy Severe Swelling Verified 01/20/21 14:33 [From Kenalog] Family History Father Arthritis Hypertension Mother Hypertension Surgical History H/O sinus surgery History of left hip replacement History of repair of anterior cruciate ligament of left knee History of repair of anterior cruciate ligament of right knee History of repair of rotator cuff History of shoulder surgery Hx of tonsillectomy Social History household members: spouse Smoking Status: Never smoker alcohol intake: never substance use type: does not use ROS ROS ED Constitutional Constitutional ED: Denies chills, fever(s) or sweats Eyes Eyes: Denies change in vision ENT ENT ED: Reports sore throat; Denies dysphagia Cardiovascular Cardiovascular: Denies chest pain, leg edema, palpitations or racing heartbeat Respiratory/Chest Respiratory/Chest: Denies cough, dyspnea or dyspnea on exertion Gastrointestinal Gastrointestinal: Denies abdominal pain, diarrhea, nausea or vomiting Genitourinary Genitourinary ED: Denies dysuria, hematuria or urinary frequency Musculoskeletal Musculoskeletal: Reports neck pain; Denies back pain or extremity pain Integumentary Denies rash or wounds Neurologic Neurologic: Denies headache(s), paresthesias or weakness EXAM Physical Exam Const Vital Signs: 03/24/23 19:08 03/24/23 21:39 Temperature 97.4 F L Temperature Source Temporal Pulse Rate 78 65 Respiratory Rate 16 15 Blood Pressure 134/87 H 120/77 Blood Pressure Mean 102 91 Pulse Ox 100 95 Oxygen Delivery Method Room Air Room Air Positive well nourished and well developed General Appearance ED: well developed and NAD HEENT Reports moist mucous membranes HEENT Narrative: Posterior pharyngeal erythema no stridor no lip or tongue swelling. Airway patent. No trismus. normocephalic and atraumatic Eyes PERRL, EOMs intact bilaterally and conjunctivae normal General Eye ED: Yes normal appearance of both eyes Neck supple Neck Narrative: Tender anterior cervical lymphadenopathy bilaterally. General: Negative for tenderness Chest Wall Chest: Negative for tenderness Resp normal respiratory effort and normal air movement Effort and Inspection: symmetric chest movement; Negative for respiratory distress Cardio regular rate, regular rhythm and no murmurs Peripheral Pulses: pulses 2+ throughout GI normal to inspection, nondistended, normoactive bowel sounds and non-tender Palpation: Negative for guarding or rebound tenderness present Back/Spine no CVA tenderness and no thoracic nor lumbar tenderness Extremity normal to inspection General Extremety ED: Negative for edema or tenderness General Extremity: Negative for edema Neuro oriented x3 and no sensory deficits noted Sensorium / Orientation: awake and alert Skin no rashes or lesions noted and no wounds MDM MDM MDM Narrative Medical decision making narrative: Interventions / MDM: Differential diagnosis: Torticollis, pharyngitis, medication allergic reaction Diagnosis considered but do not suspect: N/A My EKG interpretation: N/A Imaging independently reviewed and interpreted by myself: Three-view x-ray cervical spine: No bony process. There is a prevertebral soft tissue swelling no encroachment on the airway. External documents reviewed: N/A Test considered but not ordered:N/A ED course: Patient nontoxic and with torticollis symptoms, concerns for swelling, airway patent there is posterior pharyngeal erythema. Rapid strep obtained, he is covered for allergic reaction with prednisone Benadryl and Pepcid. Cervical spine x-rays obtained. Cervical spine x-rays with prevertebral swelling no airway encroachment. Reevaluation no worsening however no improvement. Rapid strep is negative. Forhis neck pain covered Valium for which she tolerated well in the ED. Discussed with patient continue treatment for medication reaction and swelling. Prednisone will help with inflammation. Continue Valium as needed. We will follow-up with PCP for reevaluation further treatment for his neck pain as needed. Return precautions discussed. All questions were answered. Re-evaluation: stable Disposition discussed with patient/family/significant other: Patient and significant other Case discussed with consulting clinician: N/A This note was generated with [employer] dictation software. It may contain incorrectwords, spelling, and punctuation that were not noted in checking the note beforesigning. Radiography Diagnostic Testing: Clinical Impression(s) from Imaging Studies Cervical Spine X-Ray 03/24/23 19:48 IMPRESSION: 1. Extensive degenerative changes. 2. Prevertebral soft tissue fullness. Correlate clinically for signs or symptoms of infection/inflammation. This may be in part positional. Follow-up as indicated. Consider CT. Electronically Signed: Darren Holguin DO at 20:09 EDT , Discharge Plan Triage Chief Complaint: Back ED Provider: Harshad Gaines Dx/Rx/DC Orders Clinical Impression: Medication side effect, Torticollis, Pharyngitis Instructions: Self-Care for Sore Throats, Torticollis (Wry Neck) Prescriptions: New prednisone 20 mg tablet 60 mg PO DAILY Qty: 12 0RF diazepam [diazepam] 5 mg tablet 5 mg PO Q8 PRN (Reason: Muscle Spasm) Qty: 12 0RF famotidine [Pepcid] 20 mg tablet 20 mg PO BID Qty: 10 0RF No Action omeprazole 40 MG capsule,delayed release(DR/EC) 1 tab PO DAILY Patient Comments: reflux mometasone [Nasonex] 1 SPRAY spray,non-aerosol 1 spray NASAL DAILY PRN (Reason: ALLERGY) Patient Comments: allergies losartan 50 MG tablet 50 mg PO DAILY Patient Comments: blood pressure metoprolol tartrate 25 MG tablet 25 mg PO DAILY acetaminophen 500 mg Capsule 1,000 mg PO Q8H PRN (Reason: Pain) rivaroxaban 10 mg tablet 10 mg PO DAILY Qty: 90 3RF Primary Care Provider: Salinas Ford Referrals: Salinas Ford MD [Primary Care Provider] - 3-5 Days Activity Restrictions/Additional Instructions: Do not continue Flexeril. May use Valium as needed. Continue prednisone and Pepcid, may use Benadryl every 6 hours as needed. Follow-up with Dr. Aldrich forreevaluation. Return if any worsening symptoms. Disposition Disposition: Home, Self Care What to do if you have Problems For any increased pain, shortness of breath, bleeding, nausea or vomiting, chestpain, or any unexpected problems, contact your Primary Care Provider. Call [facility] ([phone]) or report to the closest Emergency Room. Call 911 if necessary. 03/24/232240 <Electronically signed by Harshad Mojica> Cosigner Signature (if applicable): CC: Dr. Salinas Ford MD ~ Signed [facility] Work Phone: [phone] 883-424510-19-2023 History of Present illness Narrative* VARGHESE Sanchez - 03/09/2023 7:30 AM EDTAssociated Order(s): LARGE JOINT/BURSA INJECTION AND/OR ASPIRATION: L [...] in the day and if needed use iord-pph-cwibfoa anti-inflammatories for any mild swelling or discomfort.The [...] injection. Do not bill. [facility] in [facility] [place] History of Present illness Narrative* VARGHESE Sanchez - 02/23/2023 7:45 AM EDTAssociated Order(s): LARGE JOINT/BURSA INJECTION AND/OR ASPIRATION: L [...] in the day and if needed use qyzp-juw-pegbqdi anti-inflammatories for any mild swelling or discomfort.The [...] injection. Do not bill. documented in this [facility] History of Present illness Narrative* VARGHESE Sanchez - 02/16/2023 7:45 AM EDTAssociated Order(s): LARGE JOINT/BURSA INJECTION AND/OR ASPIRATION: L [...] in the day and if needed use sgyz-blz-easvocm anti-inflammatories for any mild swelling or discomfort.The [...] injection. Do not bill. documented in this encounterOS[facility]-2023 History of Present illness Narrative* Luis Enrique Costa MD - 01/05/2023 2:30 PM EDT [facility] Chief Complaint Patient presents with Left Knee - Pain 67 y.o female c/o left knee pain. XOA. Seen in 2019 for left knee OA. Prior left knee ACL reconstruction w/ TA allograft and MCL repair, PLM w/ Dr. Glynn - January 2005. States that he is dealingwith constant achy pains mostly along the anterior [...] Left; Surgeon: Seth Olvera MD; Location: [facility] ARTHROSCOPY SHOULDER W/ DEBRIDEMENT Left 02/24/2020 Laterality: Left; Surgeon: Seth Olvera MD; Location: [facility] ARTHROSCOPY SHOULDER W/ SUBACROMIAL DECOMPRESSION/ACROMIOPLASTY ADD-ON Left 02/24/2020 Laterality: Left; Surgeon: Seth Olvera MD; Location: [facility] RESECTION/TRANSPLANTATION BICEPS LONG TENDON Left 02/24/2020 Laterality: Left; Surgeon: Seth Olvera MD; Location: [facility] HIP REPLACEMENT Left 2018 Done in [place] ARTHROSCOPY SHOULDER W/ ROTATOR CUFF REPAIR Right [...] MCL recon ACL RECONSTRUCTION 1997 Right knee Past Medical History: Diagnosis Date Chicken pox Factor II deficiency Gastroesophageal reflux GERD (gastroesophageal reflux disease) [place] measles screening History of seasonal allergies Hypertension [...] year old male in no acute distress. [place] have symmetric pulses in his bilateral upper extremities and lower extremities. He had good skin turgor in his bilateral upper extremities and lower extremities. He has symmetric light touch sensation in his bilateral upper extremities and lower extremities. Examination of the right knee reveals full htwen-co-pwnjec and strength. The instability exam is negative. There are no areas of tenderness. Examination of the left knee reveals tgiex-yb-asxhtd to be 0 degrees extension and 120 of flexion. The patient has Normal quad tone and strength. There is not medial joint line tenderness. There is lateral joint line tenderness. There is pain onflexion/ circumduction testing. The patient has a negative Jeanette's test, a negative posterior drawer test, mild valgus instability which is fully correctable, and negative varus instability. There is pain/crepitation with patellar compression. AP/ LATERAL/ SUNRISE VIEWS were obtained of the left knee and personally reviewed which demonstrateadvanced joint space narrowing, specifically of the lateral [...] corticosteroid injections, consideration of visco-supplementation injections, an trial justice brace, use ofa heel wedge, physical therapy, nonsteroidal anti-inflammatory medications, icing ,using a knee sleeve, weight loss and activity modification. They understand that if symptoms progress despite non-operative interventions, that they may become a candidate for a knee replacement. He would like to proc eed with TRINIDAD injections at this time and we will order that today. He has a previous trial justice brace which we will attempt to wear again. We will see them back on an as needed basis. he was in agreement and understanding of the plan, and all of his questions are answered. Edilberto Costa MD Orthopaedic Surgery Sports Medicine Fellow * Nora Glynn MD - 01/05/2023 2:30 PM EDT Patient was seen and evaluated with the Sports Medicine Fellow/Resident at today's visit. I performed all essential elements of the history and physical exam at today's visit. I have confirmed the diagnosis at today's visit. I have determined the plan of care for today's visit. Please refer to the f ruizow/resident's note for further details from today's visit. I have reviewed the note following the visit have added edits as appropriate to my evaluation and plan of care. The diagnoses for today'svisit include: knee arthritis. documented in this [facility] Miscellaneous Notes* Telephone Encounter - Consuelo Cabrera - 12/23/2020 2:13 PM EDT Received Medical Records via: Fax From Office Name: [facility] (Medical/Clinical) or [phone] (Business/Insurance) Date of Visit: Office Visit: 12/18/2020, ED Visit: 10/27/2020, Office Visit: 11/04/2020, Office Visit: 09/16/2020, Labs 10/28/2020, CT Brain WO: 10/27/2020, MRA Head WO: 10/27/2020, MR Head WO: 10/27/2020, MRA Neck WO/W: 10/27/2020,ECHO: 10/27/2020, 12 Lead EK10/27/2020 Office Note From Physician:Dr. Salinas Ford and [facility] Placed all records in file folder for upcoming office visit, December 24, [address] Hidalgo for review. Copy of note in file folder for scanning. Consuelo Cabrera documented in this encounterSt[facility]* Diagnosis Amnesia- Primary Memory loss Amnesia, global, transient documented in this encounter [facility] noteNo assessment information availableWOhioHealth [facility] Work Phone: Evaluation note* Diagnosis Onset Date Resolution Status Left hip pain acute History of thromboembolism c hronic Prothrombin gene mutation robby Prothrombin gene mutation robby [facility] Work Phone: Evaluation note* Diagnosis Osteoarthritis of left knee, unspecified osteoarthritis type- Primary Left knee pain, unspecified chronicity documented in this encounter [facility]* Diagnosis Osteoarthritis of left knee, unspecified osteoarthritis type- Primary documented in this encounter [facility]* Diagnosis Osteoarthritis of left knee, unspecified osteoarthritis type- Primary documented in this encounter [facility]* Diagnosis Osteoarthritis of left knee, unspecified osteoarthritis type- Primary documented in this encounter [facility]* Diagnosis Left knee pain, unspecified chronicity- Primary Primary osteoarthritis of left knee Primary localized osteoarthrosis, lower leg Left knee pain, unspecified chronicity documented in this encounter [facility]* Diagnosis Left knee pain, unspecified chronicity documented in this encounter [facility]* Diagnosis Primary osteoarthritis of left knee- Primary Primary localized osteoarthrosis, lower leg Left knee pain, unspecified chronicity Left knee pain, unspecified chronicity [facility]* Diagnosis Left knee pain, unspecified chronicity documented in this encounter [facility]* Diagnosis Other acute pulmonary embolism without acute cor pulmonale (HCC)- Primary documented in this encounter [facility]* Diagnosis Pre-operative examination for internal medicine- Primary Other specified pre-operative examination Primary osteoarthritis of left knee Primary localized osteoarthrosis, lower leg Gastroesophageal reflux disease with esophagitis, unspecified whether hemorrhage Primary hypertension Unspecified essential hypertension History of DVT (deep vein thrombosis) Personal history of venous thrombosis and embolism group home current use of anticoagulant therapy Chronic GERD Prothrombin gene mutation Primary hypercoagulable state Primary osteoarthritis of left knee Primary localized osteoarthrosis, lower leg documented in this encounter [facility]* Diagnosis Right hip pain- Primary Pain in joint, pelvic region and thigh Right hip pain Pain in joint, pelvic region and thigh documented in this encounter [facility]* Diagnosis Right hip pain Pain in joint, pelvic region and thigh documented in this encounter [facility]* Diagnosis Primary osteoarthritis of right hip- Primary Primary localized osteoarthrosis, pelvic region and thigh documented in this encounter [facility]* Diagnosis Back pain, unspecified back location, unspecified back pain laterality, unspecified chronicity [facility]* Diagnosis Degeneration of intervertebral disc of lumbar region, unspecified whether pain present- Primary Lumbar radiculopathy Thoracic or lumbosacral neuritis or radiculitis, unspecified documented in this encounter [facility]* Diagnosis Degeneration of intervertebral disc of lumbar region, unspecified whether pain present- Primary documented in this encounter [facility]* Diagnosis VTE (venous thromboembolism)- Primary Embolism and thrombosis of unspecified site Right hip pain Pain in joint, pelvic region and thigh documented in this encounter [facility]* Diagnosis Preop exam for internal medicine- Primary Other specified pre-operative examination Chronic right hip pain Pain in joint, pelvic region and thigh Gastroesophageal reflux disease without esophagitis Esophageal reflux Essential hypertension Unspecified essential hypertension Right hip pain Pain in joint, pelvic region and thigh documented in this encounter [facility]* Diagnosis Right hip pain Pain in joint, pelvic region and thigh Preop exam for internal medicine Other specified pre-operative examination documented in this encounter [facility]* Diagnosis Status post right hip replacement- Primary Hip joint replacement by other means documented in this encounter [facility]* Diagnosis VTE (venous thromboembolism)- Primary Embolism and thrombosis of unspecified site documented in this encounter [facility]* Diagnosis Onset Date Resolution Status Admit Date History of right hip replacement [facility] December 03, 2024 8:20am [facility] Work Phone: Evaluation note* Diagnosis Primary osteoarthritis of left knee- Primary Primary localized osteoarthrosis, lower leg Status post right hip replacement Hip joint replacement by other means Status post right hip replacement Hip joint replacement by other means [facility]* Diagnosis VTE (venous thromboembolism)- Primary Embolism and thrombosis of unspecified site [facility] this [facility]* Diagnosis Status post right hip replacement Hip joint replacement by other means [facility] instructions Additional Instructions Do not continue Flexeril. May use Valium as needed. Continue prednisone and Pepcid, may use Benadryl every 6 hours as needed. Follow-up with Dr. Aldrich for reevaluation. Return if any worsening symptoms.[facility] Work Phone: Reason for referral (narrative)* Consultation (Routine) - New Request Specialty Diagnoses / Procedures Referred By Gareth goyal Referred To Contact Orthopaedic Surgery Diagnoses Primary osteoarthritis of left knee Nora Glynn MD [address] [place] [address] Referral ID Status Reason Start Date Expiration Date V isits Requested Visits Authorized [id number] New Request 01/25/2024 02/18/2025 1 1 * Diagnostic X-Ray (Routine) - New Request Specialty Diagnoses / Procedures Referred By Gareth goyal Referred To Contact Diagnoses Left knee pain, unspecified chronicity Procedures XR KNEE LEFT 3+ VIEWS W/ BILATERAL STANDING 1 VIEW CHG RADIOLOGIC EXAM KNEE COMPLETE 4/MORE VIEWS CHG RADIOLOGIC EXAM KNEE COMPLETE 4/MORE VIEWS Nora Glynn MD [address] [place] [address] Referral ID Status Reason Start Date Expiration Date V isits Requested Visits Authorized [id number] New Request 01/23/2024 02/16/2025 1 1 [facility] CenterReason for referral (narrative)No reason for referral information availableS[facility] Work Phone: Reason for visit Narrative* Auth/Cert Specialty Diagnoses / Procedures Referred By Arnolac t Referred To Contact Diagnoses Right hip pain Right hip pain [M25.551] Procedures CA ARTHRP ACETBLR/PROX FEM PROSTC AGRFT/ALGRFT ARTHROPLASTY HIP TOTAL ANTERIOR APPROACH Josue Garcia MD [address] [place] [address] Phone: tel: fax: [facility] [address] [place] [address] Referral ID Status Reason Start Date Expiration Date Visits Re quested Visits Authorized [id number] 1 1 [facility] for [facility] Narrative* Diagnostic X-Ray (Routine) - New Request Specialty Diagnoses / Procedures Referred By [facility] Healthfrida t Referred To Contact Diagnoses Status post right hip replacement Procedures XR HIP RIGHT 2-3 VIEWS CHG RADEX HIP UNILATERAL WITH PELVIS 2-3 VIEWS Josue Garcia MD [address] [facility] [address] [place] [address] Phone: tel: fax: Referral ID Status Reason Start Date Expiration Date V isits Requested Visits Authorized [id number] New Request 12/04/2024 12/29/2025 1 1 [facility] Reason for Referral Status Reason Specialty Diagnoses / Procedures Referred By Contact Referred To Contact Authorized Neurology Diagnoses Amnesia, global, transient Salinas Ford MD [address] [place] [address] [facility] Specialty Diagnoses / Procedures Referred By Contac t Referred To Contact Physical Therapy Diagnoses Osteoarthritis of left knee, unspecified osteoarthritis type Nora Glynn MD [address] [place] [address] Referral ID Status Reason Start Date Expiration Date V isits Requested Visits Authorized [id number] New Request 01/05/2023 01/30/2024 1 1 Scheduling Instructions [facility] [address] [facility] 2nd [place] [address] [phone] Fax [facility] (Ne[facility] and [facility] Therapy) [address] [place], [place] [address] [phone] FAX [facility] [address] [place] [address] [phone] FAX [facility] [place] [address] [facility] [address] [place] [address] [phone] FAX [facility] [address] [place] [address] [phone] FAX [facility] at [facility] [address] [place], [place] [address] [phone] FAX [facility] [address] [place], [place] [address] [phone] FAX Continued on next page [facility]patient [facility] [address] [place] [address] [phone] FAX [facility] [address] [facility] [place] [address] [phone] FAX Specialty Diagnoses / Procedures Referred By Gareth goyal Referred To Contact Diagnoses Osteoarthritis of left knee, unspecified osteoarthritis type Nora Glynn MD [address] [place] [address] Referral ID Status Reason Start Date Expiration Date V isits Requested Visits Authorized [id number] New Request 01/05/2023 01/30/2024 1 1 Specialty Diagnoses / Procedures Referred By Gareth goyal Referred To Contact Diagnoses Left knee pain, unspecified chronicity Procedures XR KNEE LEFT 3+ VIEWS W/ BILATERAL STANDING 1 VIEW CHG RADIOLOGIC EXAM KNEE COMPLETE 4/MORE VIEWS CHG RADIOLOGIC EXAM KNEE COMPLETE 4/MORE VIEWS Nora Glynn MD [address] [place] [address] Referral ID Status Reason Start Date Expiration Date V isits Requested Visits Authorized [id number] New Request 01/23/2024 02/16/2025 1 1 Specialty Diagnoses / Procedures Referred By Contac t Referred To Contact Diagnoses Right hip pain Procedures XR HIP RIGHT 2-3 VIEWS CHG RADEX HIP UNILATERAL WITH PELVIS 2-3 VIEWS CHG RADEX HIP UNILATERAL WITH PELVIS 2-3 VIEWS Suresh Escobedo MD [address] [place] [address] Referral ID Status Reason Start Date Expiration Date V isits Requested Visits Authorized [id number] New Request 06/19/2024 07/14/2025 1 1 Family History No Family History Records Found Relationship Condition Age at Onset Recorded Date/T siva father Arthritis Unknown Hypertension Unknown mother Hypertension Unknown Advance Directives No Advanced Directives Records Found Advance Directive Response Recorded Date/ Time Advance Directives No October 27 9:36pm Living Will No October 27, 2020 1 2:07pm Power of Prover No October 27, 2020 12:07pm Advance Directive Response Recorded Date/ Time Advance Directives No October 27 9:36pm Living Will No March 24 7:28pm Power of Prover No March 24, 2023 7:28pm Advance Directive Response Recorded Date/ Time Advance Directives No October 27 8:36pm Living Will No March 24 6:28pm Power of Prover No March 24, 2023 6:28pm Date Activated Date Inactivated Comments 10/29/2024 11:08 AM Date Activated Date Inactivated Comments 10/29/2024 11:08 AM Advance Directive Response Recorded Date/ Time Advance Directives No May 27, 2024 11:06am Chief Complaint and Reason for Visit Chief Complaint Admit Date Discuss IVC Removal December 03, 2024 8:20 am Reason for Visit Admit Date History of recurrent deep vein thrombosi s (DVT) December 03, 2024 8:20am Presence of IVC filter December 03, 2024 8 :20am Prothrombin gene mutation Megan 15th, 202 5 8:20am Chief Complaint ONC/HEM 1YR LABS Reason for Visit Left hip pain History of thromboembolism Prothrombin gene mutation Prothrombin gene mutation Chief Complaint back Reason for Visit Admit Date History of right hip replacement December 032024 8:20am Summary Purpose Additional Source Comments Source Comments (unrecognize d section and content) In the event this informatio n is protected by the Federal Confidentiality of Alcohol and Drug Abuse Patient Records regulations: The Federal rules restrict any use of the information to criminally investigate or prosecute any alcohol or drug abuse patient.[facility] HospitalIn the event this information is protected by the Federal Confidentiality of Alcohol and Drug Abuse Patient Records regulations: The Federal rules restrict any use of the information to criminally investigate or prosecute any alcohol or drug abuse patient.[facility] HospitalIn the event this information is protected by the Federal Confidentiality of Alcohol and Drug Abuse Patient Records regulations: The Federal rules restrict any use of the information to criminally investigate or prosecute any alcohol or drug abuse patient.[facility] Reason for Visit (unrecogniz ed section and content) Reason Comments Received Outside Medical Records Reason Comments Pain 67 y.o female c/o le ft knee pain. XOA. Seen in 2019 for left knee OA. Prior left knee ACL reconstruction w/ TA allograft and MCL repair, CLINT w/ Dr. Glynn - January 2005. States that he is [...] of left knee, unspecified osteoarthritis type Nora Glynn MD [address] [place] [address] Sports Med [facility] [address] [place] [address] Referral ID Status Reason Start Date Expiration Date Visits Re quested Visits Authorized [id number] Closed 01/05/2023 01/30/2024 1 1 Reason Comments Joint Injection Left knee #2 Orthovi sc Reason Comments Joint Injection Left knee Orthovisc #3 Reason Comments Follow-up F/up left knee OA. X OA. Completed left knee TRINIDAD injections w/ Lori 03/09/23. Prior left knee ACL reconstruction w/ TA allograft and MCL repair, CLINT w/ Dr. Glynn - January 2005. States that he got about 1.5mo of relief from his last TRINIDAD injections. Reports has been dealing with increasing [...] RADIOLOGIC EXAM KNEE COMPLETE 4/MORE VIEWS Nora Glynn MD [address] [place] [address] Referral ID Status Reason Start Date Expiration Date V isits Requested Visits Authorized [id number] New Request 01/23/2024 02/16/2025 1 1 Reason Comments Pain Specialty Diagnoses / Procedures Referred By Gareth goyal Referred To Contact Orthopaedic Surgery Diagnoses Primary osteoarthritis of left knee Nora Glynn MD [address] [place] [address] Referral ID Status Reason Start Date Expiration Date V isits Requested Visits Authorized [id number] New Request 01/25/2024 02/18/2025 1 1 Reason Comments Patient Question Reason Comments New Patient Reason Comments Preoperative Assessment Reason Comments Pain XOA. 68 yo M c/o R h ip pain. Pain since January 2024. End of February went to ED, states iliacus tear and hemorrhage. Also has LBP. DVT in left leg end April. Pain improved when off blood thinners, has returned since he resumed them. Takes gabapentin. Specialty Diagnoses / Procedures Referred By Gareth goyal Referred To Contact Diagnoses Right hip pain Procedures XR HIP RIGHT 2-3 VIEWS CHG RADEX HIP UNILATERAL WITH PELVIS 2-3 VIEWS CHG RADEX HIP UNILATERAL WITH PELVIS 2-3 VIEWS Suresh Escobedo MD [address] [place] [address] Referral ID Status Reason Start Date Expiration Date V isits Requested Visits Authorized [id number] New Request 06/19/2024 07/14/2025 1 1 Reason Comments Follow-up Follow up right hip. Patient has been seen in the past for his left knee, planned for TKA but was postponed. He is now reporting worsening right hip pain since January. Pain is primarily located in the groin. He had a CT in February which revealed a iliacus tear and hemmorhage. He is currently on blood thinners. He is also being treated by pain management and a mortgage protection specialist for his back pain. Reason Comments New Patient XOA IR [place] [facility] Order Neurological Surgery- New issue, appears to be muscular, will give baclofen 10 mg prn, supportive care advised Referring provider's information clarified by referring offi Specialty Diagnoses / Procedures Referred By Gareth goyal Referred To Contact Neurologic Surgery Diagnoses Back pain, unspecified back location, unspecified back pain laterality, unspecified chronicity Kayla Erwin MD [address] [place] [address] Phone: tel: Ken Quintanilla MD [address] [place] [address] Phone: tel: fax: Referral ID Status Reason Start Date Expiration Date V isits Requested Visits Authorized [id number] New Request 07/02/2024 07/27/2025 1 1 Reason Comments Lower Back Pain Follow up, pt states increased pain, pain down leg, states having issues with urination with medications, pain management doc is making changes, feels Cymbalta is contributing to the urination issue Reason Comments New Patient History of PE and DV T . Specialty Diagnoses / Procedures Referred By Contac t Referred To Contact Physician Twisting Department End Finder / Hematology Diagnoses Factor 2 Procedures NEW BENIGN HEMATOLOGY Self, Self Sprockel, Starr C, PA-C [address] [facility] [address] [place] [address] Phone: tel: fax: Referral ID Status Reason Start Date Expiration Date V isits Requested Visits Authorized [id number] New Request 08/12/2024 09/06/2025 1 1 Reason Comments Preoperative Assessment Specialty Diagnoses / Procedures Referred By Contac t Referred To Contact PreOp Diagnoses Pre-op testing Josue Garcia MD [address] [facility] [address] [place] [address] Phone: tel: fax: Referral ID Status Reason Start Date Expiration Date V isits Requested Visits Authorized [id number] New Request 08/26/2024 09/20/2025 1 1 Reason Onset Date Comments Medication Management 10/22/2024 Reason Comments Post Op Visit Reason Comments Follow-up VTE (venous thromboe mbolism) Reason Comments Post Op Visit Surgery: RTHA Date o f Surgery: 10/29/24 POD: 6 weeks Patient complaints of pain 05/31. Reports not taking any pain medications. No concerns at this time Goals (unrecognized section and content) Goals may be documented in a n alternate sectionGoals may be documented in an alternate sectionGoals may be documented in an alternate sectionGoals may be documented in an alternate sectionGoals may be documented in an alternate sectionGoals may be documented in an alternate sectionGoals may be documented in an alternate section Care Teams (unrecognized sec tion and content) Furniture Manager Relationship Specialty Start Date End Date Salinas Ford MD [address] [place] [address] PCP - General Family Medicine 11/15/16 Furniture Manager Relationship Specialty Start Date End Date Salinas Ford MD [address] [place] [address] PCP - General Family Medicine 11/15/16 Furniture Manager Relationship Specialty Start Date End Date Salinas Ford MD [address] [place] [address] PCP - General Family Medicine 11/15/16 Furniture Manager Relationship Specialty Start Date End Date Salinas Ford MD [address] [place] [address] PCP - General Family Medicine 11/15/16 Furniture Manager Relationship Specialty Start Date End Date Salinas Ford MD [address] [place] [address] PCP - General Family Medicine 11/15/16 Team Status: Active Member Role Status Dates Dr. Salinas Ford MD Family Provider Active Dr. Salinas Ford MD Primary Care Provider Active Team Status: Active Member Role Status Dates Dr. Salinas Ford MD Primary Care Provi dominick, Attending Provider, Referring Provider Active Team Status: Inactive Member Role Status Dates Dr. Salinas Ford MD Primary Care Provider Active Dr. Harshad Gaines DO Emergency Provider Active Team Status: Inactive Member Role Status Dates Dr. Salinas Ford MD Primary Care Provi dominick, Attending Provider, Referring Provider Active Team Status: Inactive Member Role Status Dates Dr. Salinas Ford MD Primary Care Provider, Attending Provider Active Furniture Manager Relationship Specialty Start Date End Date Salinas Ford MD [address] [place] [address] PCP - General Family Medicine 11/15/16 Furniture Manager Relationship Specialty Start Date End Date Salinas Ford MD [address] [place] [address] PCP - General Family Medicine 11/15/16 Furniture Manager Relationship Specialty Start Date End Date Salinas Ford MD [address] [place] [address] PCP - General Family Medicine 11/15/16 Furniture Manager Relationship Specialty Start Date End Date Kayla Erwin MD [address] [place] [address] PCP - General Internal Medicine 04/03/24 Furniture Manager Relationship Specialty Start Date End Date Kayla Erwin MD [address] [place] [phone] PCP - General Family Medicine 03/12/24 Furniture Manager Relationship Specialty Start Date End Date Kayla Erwin MD [address] [place] [phone] PCP - General Family Medicine 03/12/24 Furniture Manager Relationship Specialty Start Date End Date Kayla Erwin MD [address] [place] [phone] PCP - General Family Medicine 03/12/24 Furniture Manager Relationship Specialty Start Date End Date Kayla Erwin MD [address] [place] [phone] PCP - General Family Medicine 03/12/24 Furniture Manager Relationship Specialty Start Date End Date Kayla Erwin MD [address] [facility] [address] [place] [phone] PCP - General Family Medicine 03/12/24 Furniture Manager Relationship Specialty Start Date End Date Kayla Erwin MD [address] [facility] [address] [place] [phone] PCP - General Family Medicine 03/12/24 Furniture Manager Relationship Specialty Start Date End Date Kayla Erwin MD [address] [facility] [address] [place] [phone] PCP - General Family Medicine 03/12/24 Furniture Manager Relationship Specialty Start Date End Date Kayla Erwin MD PCP - General Family Medicine 03/12/24 Furniture Manager Relationship Specialty Start Date End Date Kayla Erwin MD PCP - General Family Medicine 03/12/24 Furniture Manager Relationship Specialty Start Date End Date Kayla Erwin MD PCP - General Family Medicine 03/12/24 Furniture Manager Relationship Specialty Start Date End Date Kayla Erwin MD PCP - General Family Medicine 03/12/24 Furniture Manager Relationship Specialty Start Date End Date Kayla Erwin MD PCP - General Family Medicine 03/12/24 Team Status: Active Member Role/Relationship Status Dates Kayla Erwin MD Primary Care Provider Active Team Status: Inactive Member Role/Relationship Status Dates Kayla Erwin MD Primary Care Provider Active St art: December 03, 2024 End: December 03, 2024 Kayla Erwin MD Referring Provider Active Start : December 03, 2024 End: December 03, 2024 FRANCISCO Raymundo Attending Provider Active Star t: December 03, 2024 End: December 03, 2024 Furniture Manager Relationship Specialty Start Date End Date Kayla Erwin MD PCP - General Family Medicine 03/12/24 Furniture Manager Relationship Specialty Start Date End Date Kayla Erwin MD PCP - General Family Medicine 03/12/24 Furniture Manager Relationship Specialty Start Date End Date Kayla Erwin MD PCP - General Family Medicine 03/12/24 Team Status: Inactive Member Role/Relationship Status Dates Kayla Erwin MD Primary Care Provider Active St art: December 16, 2024 End: December 16, 2024 RAFA CLEMENTS Attending Provider Active Star t: December 16, 2024 End: December 16, 2024 RAFA CLEMENTS Referring Provider Active Star t: December 16, 2024 End: December 16, 2024 (unrecognized sect ion and content) No Status Records FoundNo Status Records FoundNo Status Records Found INFORMATION SOURCE (unrecogn ized section and content) DATE CREATED AUTHOR 04/05/2024 [facility] DATE CREATED AUTHOR AUTHOR'S ORGANIZ ATION 12/16/2024 [facility] DATE CREATED AUTHOR AUTHOR'S ORGANIZ ATION 12/21/2024 [facility] Scheduled Active and Recently Administ ered Medications (unrecognized section and content) Medication Order 10/27/2024 10/28/2024 10/29/2024 Acetaminophen (TYLENOL) tablet 975 mg (COMPLETED) 975 mg, Oral, ONCE, 1 dose, On Mon10/29/24 at 0800, Maximum dose of acetaminophen is 4000 mg from all sources in 24 hours., Pre-op/Pre-Proc 0804 (Given - Provid er: Jahaira Muñiz RN) Acetaminophen (TYLENOL) tablet 975 mg 975 mg, Oral, EVERY 6 HOURS, First dose on Mon10/29/24 at 1200, Until Discontinued, Maximum dose of acetaminophen is 4000 mg from all sources in 24 hours., Post-op/Post-Proc 1108 (Not Given - Pr ovider: Ondina Hansen RN - Reason: Contraindicated - Comment: received in preop) Celecoxib (CELEBREX) capsule 200 mg 200 mg, Oral, EVERY 12 HOURS, First dose on Mon10/29/24 at 1115, Until Discontinued, Post-op/Post-Proc 1109 (Not Given - Pr ovider: Ondina Hansen RN - Reason: Contraindicated) Gabapentin (NEURONTIN) capsule 100 mg 100 mg, Oral, EVERY 8 HOURS, First dose on Mon10/29/24 at 1400, Until Discontinued, Post-op/Post-Proc 1400 (Canceled Entry - Provider: System Discharge - Comment: Automatically canceled at discontinue of medication order) Polyethylene glycol (MIRALAX) packet 17 g 17 g, Oral, DAILY, First dose on Mon10/29/24 at 1115, Until Discontinued, Post-op/Post-Proc 1115 (Canceled Entry - Provider: System Discharge - Comment: Automatically canceled at discontinue of medication order) povidone-iodine (3M SKIN and NASAL ANTISEPTIC) 5 % topical solution 1 Application (COMPLETED) 1 Application, Nasal, 60 MIN PRE-OP, 1 dose, On Mon10/29/24 at 0800, (1) Use a tissue to clean the inside of both nostrils including the inside tip of the nostril. (2) Tilting the bottle slightly, dip one swab into solution and stir vigorously for 10 seconds. Withdraw the swab slowly to avoid wiping solution off during removal. (3) Insert swab comfortably into one nostril and rotate for 15 seconds covering all surfaces. Then focus on the inside tip of nostril and rotate for an additional 15 seconds. (4) Using a new swab, repeat steps 2 & 3 with the other nostril. (5) Repeat the application in both nostrils using a fresh swab each time. (6) Do not blow nose. If solution drips out of nose, it can be lightly dabbed with a tissue., Pre-op/Pre-Proc 0757 (Given - Provid er: Jahaira Muñiz RN) Senna (SENOKOT) tablet 17.2 mg 17.2 mg, Oral, DAILY, First dose on Mon10/29/24 at 1115, Until Discontinued, Post-op/Post-Proc 1115 (Canceled Entry - Provider: System Discharge - Comment: Automatically canceled at discontinue of medication order) Tamsulosin HCl (FLOMAX) capsule 0.4 mg (COMPLETED) 0.4 mg, Oral, ONCE, 1 dose, On Mon10/29/24 at 1515, Slow release product. Do not chew or crush, Recovery 1503 (Given - Provid er: Teodora Arrington RN) tranexamic acid 1,000 mg in sodium chloride 0.7% premix IVPB 1,000 mg, Intravenous, at 600 mL/hr, Administer over 10 Minutes, ONCE, 1 dose, On Mon10/29/24 at 0800, Give 20-30 minutes prior to incision., Pre-op/Pre-Proc 1154 (Not Given - Pr ovider: Ondina Hansen RN - Reason: Contraindicated - Comment: received both doses in the OR) tranexamic acid 1,000 mg in sodium chloride 0.7% premix IVPB (COMPLETED) 1,000 mg, Intravenous, at 600 mL/hr, Administer over 10 Minutes, ONCE, 1 dose, On Mon10/29/24 at 0800, Give in PACU., Recovery to Continue 0938 ($$New Bag$$ - Provider: LING Arguello)1053 (Bolus - Provider: LING Arguello - Comment: psr) Continuous Medication Order 10/27/2024 10/28/2024 10/29/2024 Lactated ringers IV solution Intravenous, at 50 mL/hr, CONTINUOUS, Starting on Mon10/29/24 at 0800, Until Mon10/29/24 at 1757, Pre-op/Pre-Proc 0818 ($$New Bag$$ - Provider: Jahaira Muñiz RN)0930 (Paused - Provider: LING Arguello - Comment: Switch to gravity)0931 (Restarted - Provider: LING Arguello)1010 ($$New Bag$$ - Provider: LING Arguello)1054 ($$New Bag$$ - Provider: LING Arguello)1120 (Canceled Entry - Provider: LING Arguello)1125 (Stopped - Provider: LING Arguello) Lactated ringers IV solution Intravenous, at 75 mL/hr, CONTINUOUS, Starting on Mon10/29/24 at 1115, Until Mon10/29/24 at 1757, Post-op/Post-Proc 1115 (Canceled Entry - Provider: System Discharge - Comment: Automatically canceled at discontinue of medication order) PRN Medication Order 10/27/2024 10/28/2024 10/29/2024 Acetaminophen (TYLENOL) tablet 650 mg 650 mg, Oral, EVERY 6 HOURS NEEDED, Starting on Mon10/29/24 at 1108, Until Mon10/29/24 at 1757, Mild Pain, Contact anesthesiologist prior to administration if patient received acetaminophen perioperatively., Recovery Aztreonam (AZACTAM) 2 g in sodium chloride 0.9% (MB PLUS) 100 mL (total volume) IVPB (COMPLETED) 2 g, Intravenous, Administer over 30 Minutes, PACKING MACHINE INSPECTOR TO PROCEDURE, 1 dose, Starting on Mon10/29/24 at 0747, Until Mon10/29/24 at 1008, Other, Surgical Prophylaxis, Initiate antibiotic administration 30-60 minutes prior to surgical incision and complete administration prior to surgical incision., Pre-op/Pre-Proc 0938 ($$New Bag$$ - Provider: LING Arguello)1008 (Stopped - Provider: Ondina Hansen RN) Benzocaine-menthol (CEPACOL) 15-3.6 MG per lozenge 1 lozenge 1 lozenge, Oral, EVERY 2 HOURS NEEDED, Starting on Mon10/29/24 at 1108, Until Mon10/29/24 at 1757, Sore Throat, Max 8 lozenges/day Due to product shortages and availability, 15-3.6 MG and 15-2.6 MG strengths of benzocaine-menthol (CEPACOL) lozenges may be used interchangeably at [facility]., Post-op/Post-Proc ceFAZolin (ANCEF) injection (CANCELED) Administer over 3 Minutes, NEEDED, Starting on Mon10/29/24 at 0959, Until Mon10/29/24 at 1120, Intra-op/Intra-Proc 0959 (Given - Provid er: Josue Garcia MD - Comment: irrigation for right hip mixed w 3000cc NaCl, allergies reviewed okay to administer per Dr. Devine) fentaNYL (SUBLIMAZE) injection 25 mcg 25 mcg, Intravenous, Administer over 2 Minutes, EVERY 10 MINUTES NEEDED, 4 doses, Starting on e 10/29/24 at 1108, Until 10/29/24 at 1757, Severe Pain, Recovery 1158 (Given - Provid er: Ondina Hansen RN)1208 (Given - Provider: Cherise Ordoñez RN)1318 (Given - Provider: Teodora Arrington RN) Melatonin tablet 6 mg 6 mg, Oral, DAILY AT BEDTIME NEEDED, Starting on Mon10/29/24 at 1108, Until 10/29/24 at 1757, Insomnia, Post-op/Post-Proc Ondansetron (ZOFRAN-ODT) disintegrating tablet 4 mg(Linked Group 1) 4 mg, Oral, EVERY 4 HOURS NEEDED, 2 doses, Starting on e 10/29/24 at 1108, Until 10/29/24 at 1757, Nausea / Vomiting, Post-op/Post-Proc Ondansetron 4mg/2ml (ZOFRAN) injection 4 mg(Linked Group 1) 4 mg, Intravenous, EVERY 4 HOURS NEEDED, 2 doses, Starting on 10/29/24 at 1108, Until 10/29/24 at 1757, Nausea / Vomiting, Post-op/Post-Proc oxyCODONE (ROXICODONE) tablet 10 mg(Linked Group 2) 10 mg, Oral, EVERY 4 HOURS NEEDED, Starting on e 10/29/24 at 1108, Until 10/29/24 at 1757, Moderate Pain, Severe Pain, Higher dose may be administered if lower dose was previously documented as ineffective and did not result in adverse effects (RR<10, decrease in level of consciousness). Decrease back to lower dose if patient has adverse effects, or no PRN used in previous 12 hours., Post-op/Post-Proc 1148 (See Alternativ e - Provider: Ondina Hansen RN) oxyCODONE (ROXICODONE) tablet 5 mg 5 mg, Oral, EVERY 4 HOURS NEEDED, Starting on e 10/29/24 at 1108, Until Tue 625 at 1757, Moderate Pain, Recovery oxyCODONE (ROXICODONE) tablet 5 mg (COMPLETED) 5 mg, Oral, NEEDED, 1 dose, Starting on Tue 6 at 1108, Until 10/29/24 at 1440, Moderate Pain, May give once at least one hour post oxycodone prn order if dose previously documented as ineffective and did not result in adverse effects (RR less than 10, negative change in RASS of 2 or more). , Recovery 1440 (Given - Provid er: Teodora Arrington RN) oxyCODONE (ROXICODONE) tablet 5 mg(Linked Group 2) 5 mg, Oral, EVERY 4 HOURS NEEDED, Starting on 10/29/24 at 1108, Until 10/29/24 at 1757, Moderate Pain, Severe Pain, Use as initial dose. Higher dose may be administered if lower dose was previously documented as ineffective and did not result in adverse effects (RR<10, decrease in level of consciousness)., Post-op/Post-Proc 1148 (Given - Provid er: Ondina Hansen RN) Polyvinyl Alcohol-Povidone PF (REFRESH) ophthalmic solution 1 drop 1 drop, Both Eyes, EVERY 2 HOURS NEEDED, Starting on 10/29/24 at 1108, Until 10/29/24 at 1757, Dry Eyes, Other, Itchy eyes, Patient may self-administer., Post-op/Post-Proc Povidone-iodine (BETADINE) 10 % topical solution (CANCELED) NEEDED, Starting on 10/29/24 at 1000, Until Tue 6 at 1120, Intra-op/Intra-Proc 1000 (Given - Provid er: Josue Garcia MD) Prochlorperazine (COMPAZINE) injection 5 mg 5 mg, Intravenous, EVERY 1 HOUR NEEDED, 2 doses, Starting on 10/29/24 at 1108, Until 10/29/24 at 1757, Nausea / Vomiting, FIRST Line antiemetic, Do not administer within 6 hours of intra-operative dose. Maximum 40mg/day. For IV route: Give undiluted by slow IV push at a rate of 5 mg/min., Recovery ROPivacaine (NAROPIN) 0.5% injection (CANCELED) NEEDED, Starting on Mon10/29/24 at 1001, Until Mon10/29/24 at 1120, Intra-op/Intra-Proc 1001 (Given - Provid er: Josue Garcia MD) Sodium chloride 0.9% IV solution 250 mL Intravenous, at 20 mL/hr, NEEDED, Starting on Mon10/29/24 at 1108, Until Mon10/29/24 at 1757, Carrier Fluid - See Admin. Inst, 250mL 0.9NS to be used as carrier fluid for intermittent small volume or piggyback medication administration as needed. Infusion rate of the carrier fluid should be set at 20 mL/hr unless the rate as the intermittent medication is less than 20 mL/hr. For intermittent medications with a rate less than 20 mL/hr set the carrier fluid at that rate of the intermittent or piggy back medication., Post-op/Post-Proc traMADol (ULTRAM) tablet 50 mg 50 mg, Oral, EVERY 6 HOURS NEEDED, Starting on Mon10/29/24 at 1108, Until Mon10/29/24 at 1757, Mild Pain, Post-op/Post-Proc Vancomycin (VANCOCIN) 1,250 mg in Sodium chloride 0.9%, with overfill 287.5 mL (total volume) IVPB (COMPLETED) 1,250 mg (rounded from 1,285.5 mg = 15 mg/kg 85.7 kg), Intravenous, Administer over 1 Hours, PACKING MACHINE INSPECTOR TO PROCEDURE, 1 dose, Starting on Mon10/29/24 at 0747, Until Mon10/29/24 at 0918, Other, Surgical Prophylaxis, Infusion must complete prior to surgical incision. Initiate antibiotic administration 60-120 minutes prior to surgical incision (depending on Administer Over Time). Extravasation Risk, Pre-op/Pre-Proc 0818 ($$New Bag$$ - Provider: Jahaira Muñiz RN) Linked Groups Order Group 1: Ondansetron (ZOFRAN-ODT) disintegrating tablet 4 mgJump to med 4 mg, Oral, EVERY 4 HOURS NEEDED, 2 doses, Starting on Mon10/29/24 at 1108, Until Mon10/29/24 at 1757, Nausea / Vomiting, Post-op/Post-Proc Or Ondansetron 4mg/2ml (ZOFRAN) injection 4 mgJump to med 4 mg, Intravenous, EVERY 4 HOURS NEEDED, 2 doses, Starting on Mon10/29/24 at 1108, Until Mon10/29/24 at 1757, Nausea / Vomiting, Post-op/Post-Proc Group 2: oxyCODONE (ROXICODONE) tablet 5 mgJump to med 5 mg, Oral, EVERY 4 HOURS NEEDED, Starting on Mon10/29/24 at 1108, Until Mon10/29/24 at 1757, Moderate Pain, Severe Pain, Use as initial dose. Higher dose may be administered if lower dose was previously documented as ineffective and did not result in adverse effects (RR<10, decrease in level of consciousness)., Post-op/Post-Proc Or oxyCODONE (ROXICODONE) tablet 10 mgJump to med 10 mg, Oral, EVERY 4 HOURS NEEDED, Starting on Mon10/29/24 at 1108, Until Mon10/29/24 at 1757, Moderate Pain, Severe Pain, Higher dose may be administered if lower dose was previously documented as ineffective and did not result in adverse effects (RR<10, decrease in level of consciousness). Decrease back to lower dose if patient has adverse effects, or no PRN used in previous 12 hours., Post-op/Post-Proc FOR RECORDS PERTAINING TO PATIENTS WHO ARE [...] BE BASED ON THE PRIMARY CLINICAL RECORDS. [facility]. provides no warranty or guarantee of the accuracy or completeness of information in this document.
[2024-12-30 17:08] LABS: Anti-Cardiolipin Ab, IgA, Qn < 9 APL U/mL (0-11); Anti-Cardiolipin Ab, IgG, Qn < 9 GPL U/mL (0-14); Anti-Cardiolipin Ab, IgM, Qn < 9 MPL U/mL (0-12); Antithrombin 3 Function 64 % (75-135); Beta-2-Glycoprotein I IgA <9 (0-25); Beta-2-Glycoprotein I IgG <9 (0-20); Beta-2-Glycoprotein I IgM <9 (0-32); Dilute Russell Viper Venom 33.3 sec (0.0-47.0); Interpretation Comment: (.); PTT-LA 36.3 sec (0.0-43.5); Protein C, Functional 109 % (73-180); Protein S, Funtional 24 % (63-140)
== END | disposition home or self-care (01) ==
PROVIDERS: PCP Family Medicine
DX: I82.90 Acute embolism and thrombosis of unspecified vein (principal)
CPT/HCPCS: 36415; 81240; 81241; 85300; 85302; 85303; 85305; 85306; 86146; 86147

== ENCOUNTER → 2025-04-11 | Outpatient (CLI) | payer OTHER, SELFPAY ==
--- NOTE | 2025-04-11 14:45 | MRI_ITS ---
PROCEDURE: SPINE LUMBAR (ROUTINE) 04/11/2025 REASON FOR EXAM: SPONYDLOSIS, SPINAL STENOSIS OF LUMBAR REGION TECHNIQUE: Procedure Code: MRISPL Modality: MR Procedure: SPINE LUMBAR (ROUTINE) COMPARISON: None. FINDINGS: Vertebrae: Preserved in height and signal. Alignment: Retrolisthesis L1 and L2 by 1 mm. Conus Medullaris: Unremarkable. L1-2: Disc desiccation. Disc bulge. Facet joints arthropathy. Mild bilateral foramina stenosis. Mild canal stenosis. L2-3: Disc desiccation. Disc bulge. Facet joint arthropathy. Ligamentum flavum hypertrophy. Bilateral facet joint fusion. Mild bilateral foramina stenosis. Mild canal stenosis. L3-4: Disc desiccation. Disc bulge. Facet joint arthropathy. Ligamentum flavum hypertrophy. Moderate bilateral foramina stenosis and mass-effect upon the exiting L3 nerves. L4-5: Disc bulge. Facet joint arthropathy. Mass-effect upon the exiting nerves. Severe canal stenosis. Severe bilateral foramina stenosis. L5-S1: Disc bulge. Facet joint arthropathy. No foraminal or canal stenosis. Sacrum: Unremarkable. MRI/Spine Lumbar (Routine) IMPRESSION: Degenerate changes predominantly at L4-L5 where there is severe canal stenosis and severe bilateral foramina stenosis. Reading Location: [id number]
--- NOTE | 2025-04-11 14:49 | MRI_ITS ---
PROCEDURE: SPINE CERVICAL (ROUTINE) 04/11/2025 REASON FOR EXAM: SPONDYLOSIS, SPINAL STENOSIS OF CERVICAL REGION TECHNIQUE: Procedure Code: MRISPC Modality: MR Procedure: SPINE CERVICAL (ROUTINE) Multiplanar and multisequence images were obtained without IV contrast administration. COMPARISON: None. FINDINGS: Vertebrae: Cervical vertebral body heights are preserved. Bone marrow signal is unremarkable. Alignment: Normal. No spondylolisthesis. Spinal Cord: No change in spinal cord intrinsic signal. Compression at C3-C4.. C2-3: Disc osteophyte complex. Facet joint arthropathy. Mild bilateral foramina stenosis. Moderate canal stenosis. C3-4: Disc osteophyte complex. Facet joints arthropathy. Uncovertebral hypertrophy. Severe bilateral foramina stenosis. Severe spinal canal stenosis with compression upon the spinal cord. C4-5: Disc osteophyte complex. Uncovertebral hypertrophy. Mild bilateral foramina stenosis. Moderate canal stenosis. C5-6: Disc osteophyte complex. Uncovertebral hypertrophy. Facet joint arthropathy. Severe bilateral foramina stenosis. Mild canal stenosis. C6-7: Disc osteophyte complex. Uncovertebral hypertrophy. Severe bilateral foramina stenosis. Mild canal stenosis. C7-T1: No foraminal or canal stenosis. MRI/Spine Cervical (Routine) IMPRESSION: Multilevel degenerate changes predominantly at C3-C4 where there is severe darius l stenosis, cord compression and severe bilateral foramina stenosis. Reading Location: [facility]
== END | disposition home or self-care (01) ==
LOC: MRI 14:41
PROVIDERS: PCP Family Medicine
DX: M47.9 Spondylosis, unspecified (principal); M48.02 Spinal stenosis, cervical region
CPT/HCPCS: 72141; 72148

== ENCOUNTER 2025-04-30 09:32 | Day surgery (SDC) | payer MEDICARE, OTHER, SELFPAY ==
[2025-04-29 07:28] VITALS: BMI 27.8
--- NOTE | 2025-04-30 12:44 | PCM.OPRPT ---
Operative Report (Standard) Operative Information Date of Procedure: 04/30/25 Pre-Operative Diagnosis: Presence of inferior vena cava filter Post-Operative Diagnosis: Same Surgery/Procedure Performed: Retrieval of inferior vena cava filter bridge contractor: No Type of Anesthesia: Local and Sedation,Conscious Procedure Start Time: 10:30 Procedure Stop Time: 10:50 Select all DRAINS/GRAFTS/IMPLANTS that apply: None Estimated Blood Loss: 3 Specimen collected: No Description of surgery: HPI: Patient is a 69-year-old male who previously had an inferior vena cava filter placed during a period of time where he had contraindication to anticoagulation. He has since been successfully tolerating his anticoagulation without any recurrent bleeding episodes. He presents now for filter retrieval. Description of procedure: Upon obtaining informed consent and verification correct patient procedure site the patient was taken to the Scrap Drop Crane Operator was positioned prepped and draped in usual sterile fashion. I most performed consultation administered Versed and fentanyl. Skin overlying the right IJ was anesthetized with 1% lidocaine and the vessel accessed under ultrasound guidance with a micropuncture needle wire. This then exchanged for a micropuncture sheath through which a Bentson wire was advanced navigating the superior vena cava and ultimately into the inferior vena cava. The micropuncture sheath and exchanged for a KMP catheter advanced over the wire and positioned inferior to the vena cava filter. Hand-injection subtraction venacavogram was performed revealing a patent filter with no evidence of thrombus presence. The Bentson wire was then readvanced through the catheter and the catheter withdrawn and exchanged for an 8 Upper Sorbian dilator used to dilate subcutaneous tract. This was then withdrawn and exchanged for the Bard filter retrieval sheath which is advanced without difficulty under fluoroscopic guidance and positioned in the superior to the filter. The snare was then advanced through the retrieval system and utilized to snare the hook at the top of the filter. The delivery system was then advanced to collapse the filter and once the filter had detached from the vena cava wall it was withdrawn along with the snare and the inner portion of the retrieval system. Completion venacavogram confirmed no extravasation or dissection and no thrombus present. The sheath was then withdrawn and manual pressure held and hemostasis was observed. The patient was then taken to the recovery area with plan discharged home after bedrest. Surgical Findings: See above Complications Complications: No
== END 2025-04-30 13:00 | disposition home or self-care (01) ==
PROVIDERS: PCP Family Medicine; Referring Provider Surgery Trauma Surgery; Visit Provider Surgery Trauma Surgery
DX: Z45.89 Encounter for adjustment and management of other implanted devices (principal); I10 Essential (primary) hypertension; D68.52 Prothrombin gene mutation; Z79.01 Long term (current) use of anticoagulants; Z96.641 Presence of right artificial hip joint; Z96.652 Presence of left artificial knee joint; Z86.718 Personal history of other venous thrombosis and embolism; Z95.828 Presence of other vascular implants and grafts
CPT/HCPCS: 37193; 76937; 99152; 99153; C1769; C1773; C1894; Q9967